=== PATIENT | male | born 1950 | race Caucasian/White ===

== ENCOUNTER 2016-12-02 11:48 | Inpatient (IN) | payer MEDICARE ==
[2016-12-02] MEDS: DILTIAZEM 125 MG in SODIUM CHLORIDE 0.9% 100 ML IV STA (12:44)
[2016-12-02 12:45] LABS: INR 1.3 (<1.1); Partial Thromboplastin Time 26.4 sec (22.0-30.0); Prothrombin Time 12.6 sec (9.0-12.0)
[2016-12-02 12:49] LABS: ALT 18 U/L (21-72); AST 13 U/L (17-59); Alkaline Phosphatase 79 U/L (38-126); Anion Gap 12 mmol/L; Blood Urea Nitrogen 18 mg/dL (9-20); Calcium 6.7 mg/dL (8.4-10.2); Carbon Dioxide 23 mmol/L (22-30); Chloride 104 mmol/L (98-107); Glucose 120 mg/dL (74-99); Non-African American GFR(MDRD) 59 (>60 ml/min/1.73 sqM); Potassium 4.1 mmol/L (3.5-5.1); Sodium 139 mmol/L (137-145); Total Bilirubin 0.5 mg/dL (0.2-1.3); Total Protein 6.7 g/dL (6.3-8.2)
--- NOTE | 2016-12-02 12:54 | XR ---
EXAMINATION TYPE: XR chest 1V portable DATE OF EXAM: 12/02/2016 12:47 PM Comparison: 10/23/2016 Clinical History: 66-year-old male with dysrhythmia Findings: Heart is mildly enlarged. Rightward patient rotation alters the normal cardiac and mediastinal contou rs. Diffuse interstitial prominence appears increased from prior. Blunted right costophrenic angle. Impression: Correlate for mild CHF with pulmonary vascular congestion. Blunted right costophrenic angle suggests small effusion.
[2016-12-02 12:58] LABS: Magnesium 0.7 mg/dL (1.6-2.3)
[2016-12-02 13:01] LABS: Basophils % (A) 0 %; CH 24.4; CHCM 30.1; Eosinophils # (A) 0.1 k/uL (0-0.7); Eosinophils % (A) 1 %; HCT 31.5 % (39.0-53.0); HDW 2.82; HGB 9.5 gm/dL (13.0-17.5); Hypochromasia Marked; Luc # (Auto) 0.23; Luc % (Auto) 2; Lymphocytes # (A) 1.1 k/uL (1.0-4.8); Lymphocytes % (A) 8 %; MCH 24.4 pg (25.0-35.0); MCHC 30.1 g/dL (31.0-37.0); Mean Platelet Volume 7.2; Monocytes # (A) 0.6 k/uL (0-1.0); Monocytes % (A) 4 %; Neutrophils # (A) 12.4 k/uL (1.3-7.7); Neutrophils % (A) 85 %; RBC 3.89 m/uL (4.30-5.90); RDW 15.8 % (11.5-15.5); WBC 14.5 k/uL (3.8-10.6); WBC (Perox) 14.78
[2016-12-02 13:05] LABS: MCV 80.9 fL (80.0-100.0)
[2016-12-02 13:12] LABS: Troponin I 0.017 ng/mL (0.000-0.034)
[2016-12-02] MEDS: MAGNESIUM SULFATE-D5W PMX 1 GM in DEXTROSE/WATER 1 100ML.BAG IVPB SCH ×2 (13:28→15:00)
[2016-12-02] MEDS ORDERED: MORPHINE SULFATE 4 MG/ML SYRINGE IV STA (15:20)
[2016-12-02] MEDS ORDERED: CALCIUM GLUCONATE 1,000 MG in SODIUM CHLORIDE 0.9% 100 ML IVPB ONE (15:30)
[2016-12-02] MEDS ORDERED: NITROGLYCERIN SL TABS 0.4 MG TAB SUBLINGUAL PRN (15:51)
[2016-12-02] MEDS ORDERED: MECLIZINE 25 MG TAB PO PRN (15:54)
[2016-12-02] MEDS ORDERED: ALPRAZolam 0.25 MG TAB PO PRN (15:54)
[2016-12-02] MEDS ORDERED: IPRATROPIUM 0.5 MG/2.5 ML NEBU INHALATION PRN (15:54)
--- NOTE | 2016-12-02 15:56 | ED ---
General Adult HPI - General Chief complaint: Recheck/Abnormal Lab/Rx Stated complaint: abnormal labs Time Seen by Provider: 12/02/16 12:03 Source: patient, EMS Mode of arrival: EMS Limitations: physical limitation - History of Present Illness Initial comments: This patient is 66-year-old man who presents to be evaluated for diarrhea and resulting electrolyte abnormalities. He has had previous episodes like this when he develops diarrhea. The patient spoke with his physician who directed him here. The patient is denying chest pain or dyspnea. He has not noted any blood in the bowel movements. He was recently checked for clostridium and was negative. He is not having abdominal pains. -: days(s) Consistency: constant Improves with: none Worsens with: none Associated Symptoms: malaise, weakness Treatments Prior to Arrival: none - Related Data Home Medications Medication Instructions Recorded Confirmed Calcitriol [Rocaltrol] 0.25 mcg PO SUTH 06/06/16 12/02/16 Diltiazem HCl [Diltiazem 24Hr ER] 180 mg PO DAILY 06/06/16 12/02/16 Citalopram Hydrobromide [CeleXA] 20 mg PO DAILY 08/13/16 12/02/16 Lansoprazole 30 mg PO DAILY 08/13/16 12/02/16 Ergocalciferol [Vitamin D2 50,000 unit PO [id number] 08/29/16 12/02/16 (DRISDOL)] Furosemide [Lasix] 40 mg PO DAILY 08/29/16 12/02/16 INSULIN LISPRO (humaLOG) [humaLOG See Protocol SQ ACHS 08/29/16 12/02/16 (formulary)] Albuterol Nebulized [Ventolin 2.5 mg INHALATION RT-QID 10/23/16 12/02/16 Nebulized] Calcium Carbonate/Vitamin D3 1 tab PO BID 10/23/16 12/02/16 [Calcium 600-Vit D3 200 Tablet] Ipratropium [place] [Atrovent Hfa] 2 puff INHALATION RT-QID PRN 10/23/16 Meclizine [Antivert] 25 mg PO Q8H PRN 10/23/16 12/02/16 Multivitamins, Thera [Multivitamin] 1 tab PO DAILY 10/23/16 12/02/16 predniSONE 5 mg PO DAILY 10/23/16 12/02/16 Previous Rx's Medication Instructions Recorded ALPRAZolam [Xanax] 0.25 mg PO QID PRN #90 tab 10/27/16 Doxycycline [Vibramycin] 100 mg PO BID cap 10/27/16 Hydrocodone/Acetaminophen [Magazine 2 tab PO Q12H #120 tab 10/27/16 10-325] Linagliptin [Tradjenta] 5 mg PO DAILY tablet 10/27/16 Allergies Allergy/AdvReac Type Severity Reaction Status Date / Time No Known Allergies Allergy Verified 12/02/16 12:21 Review of Systems ROS Statement: Those systems with pertinent positive or pertinent negative responses have been documented in the HPI. ROS Other: All systems not noted in ROS Statement are negative. Constitutional: Reports: weakness. Denies: fever, chills Respiratory: Denies: cough, dyspnea, wheezes Cardiovascular: Denies: chest pain, edema, syncope Gastrointestinal: Reports: diarrhea. Denies: abdominal pain, nausea, vomiting, constipation, melena, hematochezia Genitourinary: Denies: dysuria, hematuria Musculoskeletal: Denies: back pain Skin: Reports: other (Chronic hidradenitis) Neurological: Reports: weakness. Denies: headache, numbness, paresthesias Past Medical History Past Medical History: Atrial Fibrillation, Asthma, Cancer, Diabetes Mellitus, Eye Disorder, GERD/Reflux, GI Bleed, Hearing Disorder / Deafness, Pneumonia, Renal Disease, Respiratory Disorder, Skin Disorder Additional Past Medical History / Comment(s): renal failure, lung CA, cardiac arrythmia, ulcer,pt has hydradenitis on b/l legs, thighs weep and bandages them daily, left leg tib/\fib fx 08/12/16. was in [facility] for rehab, went home. wants pt back in rehab.. History of Any Multi-Drug Resistant Organisms: None Reported Past Surgical History: Appendectomy, Cholecystectomy, Orthopedic Surgery Additional Past Surgical History / Comment(s): lower and middle lobe of right lung removed due to cancer, lap band, UVP3, cyst removal off hip, surgery for perforated duodenal ulcer Past Anesthesia/Blood Transfusion Reactions: No Reported Reaction Past Psychological History: Depression Smoking Status: Former smoker Past Alcohol Use History: None Reported, Occasional Additional Past Alcohol Use History / Comment(s): Patient was a smoker of 2-1/2 3 packs per day for 47 years, QUIT 4-5 YEARS AGO. He denies any medical marijuana, marijuana, street drug or alcohol use. Patient CURRENTLY AT [facility]. He has been on disability since 1990. THRU HIS WORK sustained lead poisoning there in 1971. 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 Past Drug Use History: None Reported - Past Family History Father Family Medical History: Cancer, Diabetes Mellitus, Liver Disease Mother Family Medical History: Cancer, Thyroid Disorder General Exam Limitations: physical limitation General appearance: alert, in no apparent distress, obese Head exam: Present: atraumatic, normocephalic Eye exam: Present: normal appearance. Absent: scleral icterus, conjunctival injection Neck exam: Present: normal inspection, full ROM Respiratory exam: Present: normal lung sounds bilaterally. Absent: respiratory distress, wheezes, rales, rhonchi, stridor Cardiovascular Exam: Present: tachycardia, irregular rhythm, normal heart sounds. Absent: systolic murmur, diastolic murmur, rubs, gallop GI/Abdominal exam: Present: soft. Absent: distended, tenderness, guarding, rebound, mass Extremities exam: Present: normal inspection, normal capillary refill. Absent: pedal edema, calf tenderness Back exam: Present: normal inspection. Absent: CVA tenderness (R), CVA tenderness (L) Neurological exam: Present: alert. Absent: motor sensory deficit Skin exam: Present: warm, dry, normal color, other (Patient does have some chronically draining tracts related to his hydradenitis.) Course Vital Signs 12/02/16 12/02/16 12/02/16 11:49 12:30 12:46 Temperature 97.9 F Pulse Rate 126 H 120 H Pulse Rate [ 131 H Top Taper Machine ] Respiratory 18 16 Rate Blood Pressure 124/75 114/68 O2 Sat by Pulse 97 99 Oximetry 12/02/16 12/02/16 12/02/16 12:50 13:47 14:09 Temperature Pulse Rate 105 H 104 H Pulse Rate [ 125 H Top Taper Machine ] Respiratory 16 Rate Blood Pressure 122/76 137/82 O2 Sat by Pulse 98 98 Oximetry 12/02/16 12/02/16 12/02/16 15:01 15:36 16:55 Temperature 97.1 F L Pulse Rate 106 H 95 100 Pulse Rate [ Top Taper Machine ] Respiratory 16 18 98 H Rate Blood Pressure 128/90 130/81 122/77 O2 Sat by Pulse 99 99 98 Oximetry EKG Findings - EKG Results: EKG: interpreted by ERMD, normal axis, normal QRS, normal ST/T EKG shows: atrial fibrillation (Rate 120 bpm) Medical Decision Making - Medical Decision Making Patient is 66-year-old man who is presenting with atrial fibrillation with a rapid ventricular rate, as well as multiple electrolyte abnormalities. Patient started on Cardizem for rate control and also having elective light supplementation. Case discussed with Dr. Flores who requests patient receive air bed. - Lab Data Result diagrams: 12/02/16 12:05 12/02/16 12:05 Lab Results 12/02/16 12/02/16 12/02/16 Range/Units 12:05 12:05 12:05 WBC 14.5 H (3.8-10.6) k/uL RBC 3.89 L (4.30-5.90) m/uL Hgb 9.5 L (13.0-17.5) gm/dL Hct 31.5 L (39.0-53.0) % MCV 80.9 D (80.0-100.0) fL MCH 24.4 L (25.0-35.0) pg MCHC 30.1 L (31.0-37.0) g/dL RDW 15.8 H (11.5-15.5) % Plt Count 457 H (150-450) k/uL Neutrophils % 85 % Lymphocytes % 8 % Monocytes % 4 % Eosinophils % 1 % Basophils % 0 % Neutrophils # 12.4 H (1.3-7.7) k/uL Lymphocytes # 1.1 (1.0-4.8) k/uL Monocytes # 0.6 (0-1.0) k/uL Eosinophils # 0.1 (0-0.7) k/uL Basophils # 0.0 (0-0.2) k/uL Hypochromasia Marked PT (9.0-12.0) sec INR (<1.1) APTT (22.0-30.0) sec Sodium 139 (137-145) mmol/L Potassium 4.1 (3.5-5.1) mmol/L Chloride 104 (98-107) mmol/L Carbon Dioxide 23 (22-30) mmol/L Anion Gap 12 mmol/L BUN 18 (9-20) mg/dL Creatinine 1.23 (0.66-1.25) mg/dL Est GFR (MDRD) Af Amer >60 (>60 ml/min/1.73 sqM) Est GFR (MDRD) Non-Af 59 (>60 ml/min/1.73 sqM) Glucose 120 H (74-99) mg/dL Calcium 6.7 L (8.4-10.2) mg/dL Magnesium 0.7 L* (1.6-2.3) mg/dL Total Bilirubin 0.5 (0.2-1.3) mg/dL AST 13 L (17-59) U/L ALT 18 L (21-72) U/L Alkaline Phosphatase 79 (38-126) U/L Total Creatine Kinase 47 L (55-170) U/L CK-MB (CK-2) 1.0 (0.0-2.4) ng/mL CK-MB (CK-2) Rel Index 2.1 Troponin I 0.017 (0.000-0.034) ng/mL Total Protein 6.7 (6.3-8.2) g/dL Albumin 2.5 L (3.5-5.0) g/dL 12/02/16 Range/Units 12:05 WBC (3.8-10.6) k/uL RBC (4.30-5.90) m/uL Hgb (13.0-17.5) gm/dL Hct (39.0-53.0) % MCV (80.0-100.0) fL MCH (25.0-35.0) pg MCHC (31.0-37.0) g/dL RDW (11.5-15.5) % Plt Count (150-450) k/uL Neutrophils % % Lymphocytes % % Monocytes % % Eosinophils % % Basophils % % Neutrophils # (1.3-7.7) k/uL Lymphocytes # (1.0-4.8) k/uL Monocytes # (0-1.0) k/uL Eosinophils # (0-0.7) k/uL Basophils # (0-0.2) k/uL Hypochromasia PT 12.6 H (9.0-12.0) sec INR 1.3 (<1.1) APTT 26.4 (22.0-30.0) sec Sodium (137-145) mmol/L Potassium (3.5-5.1) mmol/L Chloride (98-107) mmol/L Carbon Dioxide (22-30) mmol/L Anion Gap mmol/L BUN (9-20) mg/dL Creatinine (0.66-1.25) mg/dL Est GFR (MDRD) Af Amer (>60 ml/min/1.73 sqM) Est GFR (MDRD) Non-Af (>60 ml/min/1.73 sqM) Glucose (74-99) mg/dL Calcium (8.4-10.2) mg/dL Magnesium (1.6-2.3) mg/dL Total Bilirubin (0.2-1.3) mg/dL AST (17-59) U/L ALT (21-72) U/L Alkaline Phosphatase (38-126) U/L Total Creatine Kinase (55-170) U/L CK-MB (CK-2) (0.0-2.4) ng/mL CK-MB (CK-2) Rel Index Troponin I (0.000-0.034) ng/mL Total Protein (6.3-8.2) g/dL Albumin (3.5-5.0) g/dL Disposition Clinical Impression: Atrial fibrillation with rapid ventricular response, Hypocalcemia, Hypomagnesemia, Hidradenitis suppurativa Disposition: ADMITTED IP TO THIS HOSP Condition: Fair
[2016-12-02 18:28] LABS: Glucose,Whole Blood 94 mg/dL (75-99)
[2016-12-02] MEDS: SODIUM CHLORIDE 0.9% 1,000 ML IV SCH (18:29)
[2016-12-02] MEDS: HYDROcodone/APAP 10-325MG 1 EACH TAB PO SCH (18:46)
[2016-12-02 19:07] LABS: Creatine Kinase 41 U/L (55-170)
[2016-12-02 19:21] LABS: Troponin I <0.012 ng/mL (0.000-0.034)
[2016-12-02] MEDS: ALBUTEROL NEBULIZED 2.5 MG/3 ML INHALATION SCH ×2 (20:32)
[2016-12-02 20:42] LABS: Glucose,Whole Blood 105 mg/dL (75-99)
[2016-12-02] MEDS: CALCIUM CARB-VIT D 500MG-200UN 1 EACH TAB PO SCH (20:44)
[2016-12-02] MEDS: MAGNESIUM OXIDE 400 MG TAB PO SCH (20:44)
[2016-12-02] MEDS: DOXYCYCLINE 50 MG CAP PO SCH (20:44)
[2016-12-03 00:15] LABS: Creatine Kinase 38 U/L (55-170)
[2016-12-03 00:27] LABS: Troponin I <0.012 ng/mL (0.000-0.034)
[2016-12-03] MEDS: DILTIAZEM 125 MG in SODIUM CHLORIDE 0.9% 100 ML IV STA (02:00)
[2016-12-03 06:01] LABS: Glucose,Whole Blood 98 mg/dL (75-99)
[2016-12-03 06:16] LABS: Anion Gap 9 mmol/L; Blood Urea Nitrogen 18 mg/dL (9-20); Calcium 7.2 mg/dL (8.4-10.2); Carbon Dioxide 28 mmol/L (22-30); Chloride 104 mmol/L (98-107); Cholesterol 77 mg/dL (<200); Glucose 92 mg/dL (74-99); HDL Cholesterol 25 mg/dL (40-60); Magnesium 1.1 mg/dL (1.6-2.3); Non-African American GFR(MDRD) 51 (>60 ml/min/1.73 sqM); Potassium 3.9 mmol/L (3.5-5.1); Sodium 141 mmol/L (137-145); Triglycerides 81 mg/dL (<150)
[2016-12-03 06:22] LABS: Basophils % (A) 0 %; CH 24.1; CHCM 28.8; Eosinophils # (A) 0.5 k/uL (0-0.7); Eosinophils % (A) 4 %; HCT 30.9 % (39.0-53.0); HDW 2.85; Hypochromasia Marked; Luc # (Auto) 0.21; Luc % (Auto) 2; Lymphocytes # (A) 1.4 k/uL (1.0-4.8); Lymphocytes % (A) 14 %; MCH 24.2 pg (25.0-35.0); MCV 83.5 fL (80.0-100.0); Mean Platelet Volume 6.4; Monocytes # (A) 0.5 k/uL (0-1.0); Monocytes % (A) 5 %; Neutrophils # (A) 7.9 k/uL (1.3-7.7); Neutrophils % (A) 75 %; RDW 15.7 % (11.5-15.5); WBC 10.5 k/uL (3.8-10.6); WBC (Perox) 11.78
[2016-12-03] MEDS: HYDROcodone/APAP 10-325MG 1 EACH TAB PO SCH ×2 (06:26→15:50)
[2016-12-03] MEDS: PANTOPRAZOLE 40 MG TABLET PO SCH (06:29)
[2016-12-03] MEDS: ALBUTEROL NEBULIZED 2.5 MG/3 ML INHALATION SCH ×4 (07:50→20:23)
[2016-12-03] MEDS: CALCIUM CARB-VIT D 500MG-200UN 1 EACH TAB PO SCH ×2 (08:54→21:29)
[2016-12-03] MEDS: ASPIRIN 325 MG TAB PO SCH (08:54)
[2016-12-03] MEDS: DOXYCYCLINE 50 MG CAP PO SCH ×2 (08:54→21:29)
[2016-12-03] MEDS: FUROSEMIDE 40 MG TAB PO SCH (08:54)
[2016-12-03] MEDS: CITALOPRAM HYDROBROMIDE 20 MG TAB PO SCH (08:54)
[2016-12-03] MEDS: predniSONE 5 MG TAB PO SCH (08:54)
[2016-12-03] MEDS: MAGNESIUM OXIDE 400 MG TAB PO SCH ×2 (08:54→21:29)
[2016-12-03] MEDS: MULTIVITAMINS, THERA 1 EACH TAB PO SCH (08:54)
[2016-12-03] MEDS: LINAGLIPTIN 5 MG TABLET PO SCH (08:55)
[2016-12-03] MEDS ORDERED: DILTIAZEM CD 180 MG CAP.ER.24H PO SCH (09:00)
--- NOTE | 2016-12-03 10:44 | P.HPIM ---
History of Present Illness H&P Date: 12/03/16 Chief Complaint: Loose stool, electrolyte abnormality Javid is a 66-year-old male well-known to my practice presented for evaluation for diarrhea resulting electrolyte abnormalities. He said previous episodes like this way or he develops hypocalcemia hypomagnesemia and hypo-bulimia and specifically becomes dehydrated. Currently patient is denying any chest pain or dyspnea no nausea. He has not noted any blood in the stool or bowel movements. There is recently checked for Clostridium difficile which was negative. He was not experiencing any abdominal pain this time. He has a long- standing history of severe hydradenitis on his upper thighs and buttocks. The patient also has a long standing history of lung cancer for which she was treated and apparently is seems to be in remission Review of Systems Cardiovascular: Reports as per HPI, Reports rapid heart beat Respiratory: Reports as per HPI Gastrointestinal: Reports as per HPI, Reports diarrhea Genitourinary: Reports as per HPI Musculoskeletal: Reports as per HPI Integumentary: Reports as per HPI Neurological: Reports as per HPI Psychiatric: Reports as per HPI Past Medical History Past Medical History: Atrial Fibrillation, Asthma, Cancer, Diabetes Mellitus, Eye Disorder, GERD/Reflux, GI Bleed, Hearing Disorder / Deafness, Pneumonia, Renal Disease, Respiratory Disorder, Skin Disorder Additional Past Medical History / Comment(s): renal failure, lung CA, cardiac arrythmia, ulcer,pt has hydradenitis on b/l legs, thighs weep and bandages them daily, left leg tib/\fib fx 08/12/16. was in [facility] for rehab, went home. wants pt back in rehab.. History of Any Multi-Drug Resistant Organisms: None Reported Past Surgical History: Appendectomy, Cholecystectomy, Orthopedic Surgery Additional Past Surgical History / Comment(s): lower and middle lobe of right lung removed due to cancer, lap band, UVP3, cyst removal off hip, surgery for perforated duodenal ulcer Past Anesthesia/Blood Transfusion Reactions: No Reported Reaction Past Psychological History: Depression Smoking Status: Former smoker Past Alcohol Use History: None Reported, Occasional Additional Past Alcohol Use History / Comment(s): Patient was a smoker of 2-1/2 3 packs per day for 47 years, QUIT 4-5 YEARS AGO. He denies any medical marijuana, marijuana, street drug or alcohol use. Patient CURRENTLY AT [facility]. He has been on disability since 1990. THRU HIS WORK sustained lead poisoning there in 1971. 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 Past Drug Use History: None Reported - Past Family History Father Family Medical History: Cancer, Diabetes Mellitus, Liver Disease Mother Family Medical History: Cancer, Thyroid Disorder Medications and Allergies Home Medications Medication Instructions Recorded Confirmed Type Calcitriol [Rocaltrol] 0.25 mcg PO SUTH 06/06/16 12/02/16 History Diltiazem HCl [Diltiazem 24Hr ER] 180 mg PO DAILY 06/06/16 12/02/16 History Citalopram Hydrobromide [CeleXA] 20 mg PO DAILY 08/13/16 12/02/16 History Lansoprazole 30 mg PO DAILY 08/13/16 12/02/16 History Ergocalciferol [Vitamin D2 50,000 unit PO [id number] 08/29/16 12/02/16 History (DRISDOL)] Furosemide [Lasix] 40 mg PO DAILY 08/29/16 12/02/16 History INSULIN LISPRO (humaLOG) [humaLOG See Protocol SQ ACHS 08/29/16 12/02/16 History (formulary)] Albuterol Nebulized [Ventolin 2.5 mg INHALATION RT-QID 10/23/16 12/02/16 History Nebulized] Calcium Carbonate/Vitamin D3 1 tab PO BID 10/23/16 12/02/16 History [Calcium 600-Vit D3 200 Tablet] Ipratropium [place] [Atrovent Hfa] 2 puff INHALATION RT-QID PRN 10/23/16 History Meclizine [Antivert] 25 mg PO Q8H PRN 10/23/16 12/02/16 History Multivitamins, Thera [Multivitamin] 1 tab PO DAILY 10/23/16 12/02/16 History predniSONE 5 mg PO DAILY 10/23/16 12/02/16 History Allergies Allergy/AdvReac Type Severity Reaction Status Date / Time No Known Allergies Allergy Verified 12/02/16 12:21 Physical Exam Osteopathic Statement: *. No significant issues noted on an osteopathic structural exam other than those noted in the History and Physical/Consult. Vitals: Vital Signs Temp Pulse Pulse Resp BP BP Pulse Ox 12/03/16 08:05 98 12/03/16 08:00 98.8 F 101 H 18 118/63 92 L 12/03/16 07:53 100 94 L 12/03/16 04:00 97 F L 102 H 18 112/62 99 12/03/16 00:00 96.2 F L 109 H 18 97/52 94 L 12/02/16 20:42 88 12/02/16 20:33 88 12/02/16 20:00 99 F 96 18 90/53 97 12/02/16 18:32 96 16 12/02/16 18:30 96.9 F L 96 16 111/56 98 12/02/16 16:55 97.1 F L 100 98 H 122/77 98 Intake and Output 12/02/16 12/03/16 12/03/16 22:59 06:59 14:59 Intake Total 16.75 299.167 402 Output Total 500 400 Balance -483.25 -100.833 402 Intake: IV 200 Diltiazem 125 mg In 100 Sodium Chloride 0.9% 100 ml @ 5 MG/HR 5 mls/hr IV .Q24H STA Rx#:[id number] Sodium Chloride 0.9% 1, 100 000 ml @ 20 mls/hr IV . Q24H [facility] Rx#:[id number] Intake, IV Titration 16.75 99.167 Amount Diltiazem 125 mg In 16.75 99.167 Sodium Chloride 0.9% 100 ml @ 5 MG/HR 5 mls/hr IV .Q24H STA Rx#:[id number] Oral 402 Output: Urine 500 400 Other: Voiding Method Urinal Urinal Urinal # Voids 1 Weight 140.2 kg General: [Patient awake, alert and oriented times 3. Patient in no acute distress.] HEENT: [PERRL. EOMI. No pharyngeal erythema or exudate.] Neck: [No adenopathy.] Cardiac: [Heart regular in rate and rhythm. No S3. No S4. No clicks, rubs. No murmur.] Lungs: [Clear to auscultation bilaterally.] Abdomen: [No mass. No organomegaly. Bowel sounds presnt and normoactive in all 4 quadrants.] Extremes: [No edema no cyanosis no claudication normal pulses] patient has hidradenitis to bilateral lower extremes thighs and buttocks with persistently openly week being fistulous tracts : [] Musculoskeletal: [No joint erythema, edema or tenderness.] Skin: [No rash.] Neurologic: [No lateralizing deficits. CN II - XII grossly intact.] Lymphatic: [No adenopathy.] Results CBC & Chem 7: 12/03/16 05:38 12/03/16 05:38 Labs: Abnormal Lab Results - Last 24 Hours (Table) 12/02/16 12/02/16 12/02/16 Range/Units 17:58 20:40 23:32 RBC (4.30-5.90) m/uL Hgb (13.0-17.5) gm/dL Hct (39.0-53.0) % MCH (25.0-35.0) pg MCHC (31.0-37.0) g/dL RDW (11.5-15.5) % Neutrophils # (1.3-7.7) k/uL Creatinine (0.66-1.25) mg/dL POC Glucose (mg/dL) 105 H (75-99) mg/dL Calcium (8.4-10.2) mg/dL Magnesium (1.6-2.3) mg/dL Total Creatine Kinase 41 L 38 L (55-170) U/L HDL Cholesterol (40-60) mg/dL 12/03/16 12/03/16 Range/Units 05:38 05:38 RBC 3.70 L (4.30-5.90) m/uL Hgb 9.0 L (13.0-17.5) gm/dL Hct 30.9 L (39.0-53.0) % MCH 24.2 L (25.0-35.0) pg MCHC 29.0 L (31.0-37.0) g/dL RDW 15.7 H (11.5-15.5) % Neutrophils # 7.9 H (1.3-7.7) k/uL Creatinine 1.39 H (0.66-1.25) mg/dL POC Glucose (mg/dL) (75-99) mg/dL Calcium 7.2 L (8.4-10.2) mg/dL Magnesium 1.1 L (1.6-2.3) mg/dL Total Creatine Kinase (55-170) U/L HDL Cholesterol 25 L (40-60) mg/dL Assessment and Plan (1) Atrial fibrillation with rapid ventricular response Narrative/Plan: Currently anxious him channel claudio aggressive rehydration replace electrolytes Status: Acute (2) Hypocalcemia Narrative/Plan: Patient currently on calcium replacement protocol Status: Acute (3) Hypomagnesemia Narrative/Plan: Patient on magnesium replacement protocol Status: Acute (4) Hidradenitis suppurativa Narrative/Plan: This is been cultured and dull with multiple time we do not actually culture any bacteria out in the the purulent exudate Dressing changes daily or as needed Status: Chronic (5) Chronic a-fib Narrative/Plan: Patient has not been on anticoagulants basically because his buttocks bleeds excessively from the antiplatelet therapy Status: Acute Plan: Aggressive rehydration aggressively electrolyte replacement in control loose stool B labs reevaluate in the morning
[2016-12-03] MEDS ORDERED: Magnesium Replacement Protocol 1 EACH MISC MISCELLANE PRN (10:56)
[2016-12-03 11:10] LABS: Glucose,Whole Blood 157 mg/dL (75-99)
--- NOTE | 2016-12-03 11:16 | P.CRDCN ---
History of Present Illness Consult date: 12/03/16 Reason for Consult (text): AF w/RVR Chief complaint: Diarrhea History of present illness: This is a 66-year-old gentleman who has previously been seen in the office by Dr. Agarwal. Has a known history of atrial fibrillation, diabetes mellitus, GI bleed, lung cancer, renal insufficiency, gastroesophageal reflux and asthma. Presented to the emergency department after speaking with his primary care physician regarding diarrhea over the last week has been becoming more frequent over the last couple of days. Has had this issue in the past and has resulted in electrolyte imbalances. Upon presentation EKG showed patient to be in atrial fibrillation with rapid ventricular response. Laboratory values showed a magnesium of 0.7 and calcium 6.7. His BUN is 18 creatinine 1.39. He received magnesium replacement, 2 g and repeat magnesium is 1.1 this morning. As x-ray done on admission did show some mild CHF with possible pulmonary vascular congestion. Last echocardiogram done in August 2016 showed an ejection fraction of 45-50%. Upon examination this morning, patient is resting comfortably in bed. He denies complaints of chest discomfort, palpitations, shortness of breath, orthopnea, PND, dizziness, lightheadedness, syncope or edema. Past Medical History Past Medical History: Atrial Fibrillation, Asthma, Cancer, Diabetes Mellitus, Eye Disorder, GERD/Reflux, GI Bleed, Hearing Disorder / Deafness, Pneumonia, Renal Disease, Respiratory Disorder, Skin Disorder Additional Past Medical History / Comment(s): renal failure, lung CA, cardiac arrythmia, ulcer,pt has hydradenitis on b/l legs, thighs weep and bandages them daily, left leg tib/\fib fx 08/12/16. was in [facility] for rehab, went home. wants pt back in rehab.. History of Any Multi-Drug Resistant Organisms: None Reported Past Surgical History: Appendectomy, Cholecystectomy, Orthopedic Surgery Additional Past Surgical History / Comment(s): lower and middle lobe of right lung removed due to cancer, lap band, UVP3, cyst removal off hip, surgery for perforated duodenal ulcer Past Anesthesia/Blood Transfusion Reactions: No Reported Reaction Past Psychological History: Depression Smoking Status: Former smoker Past Alcohol Use History: None Reported, Occasional Additional Past Alcohol Use History / Comment(s): Patient was a smoker of 2-1/2 3 packs per day for 47 years, QUIT 4-5 YEARS AGO. He denies any medical marijuana, marijuana, street drug or alcohol use. Patient CURRENTLY AT [facility]. He has been on disability since 1990. THRU HIS WORK sustained lead poisoning there in 1971. 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 Past Drug Use History: None Reported - Past Family History Father Family Medical History: Cancer, Diabetes Mellitus, Liver Disease Mother Family Medical History: Cancer, Thyroid Disorder Medications and Allergies Home Medications Medication Instructions Recorded Confirmed Type Calcitriol [Rocaltrol] 0.25 mcg PO SUTH 06/06/16 12/02/16 History Diltiazem HCl [Diltiazem 24Hr ER] 180 mg PO DAILY 06/06/16 12/02/16 History Citalopram Hydrobromide [CeleXA] 20 mg PO DAILY 08/13/16 12/02/16 History Lansoprazole 30 mg PO DAILY 08/13/16 12/02/16 History Ergocalciferol [Vitamin D2 50,000 unit PO [id number] 08/29/16 12/02/16 History (DRISDOL)] Furosemide [Lasix] 40 mg PO DAILY 08/29/16 12/02/16 History INSULIN LISPRO (humaLOG) [humaLOG See Protocol SQ ACHS 08/29/16 12/02/16 History (formulary)] Albuterol Nebulized [Ventolin 2.5 mg INHALATION RT-QID 10/23/16 12/02/16 History Nebulized] Calcium Carbonate/Vitamin D3 1 tab PO BID 10/23/16 12/02/16 History [Calcium 600-Vit D3 200 Tablet] Ipratropium [place] [Atrovent Hfa] 2 puff INHALATION RT-QID PRN 10/23/16 History Meclizine [Antivert] 25 mg PO Q8H PRN 10/23/16 12/02/16 History Multivitamins, Thera [Multivitamin] 1 tab PO DAILY 10/23/16 12/02/16 History predniSONE 5 mg PO DAILY 10/23/16 12/02/16 History Allergies Allergy/AdvReac Type Severity Reaction Status Date / Time No Known Allergies Allergy Verified 12/02/16 12:21 Physical Exam Vitals: Vital Signs Temp Pulse Pulse Resp BP BP Pulse Ox 12/03/16 08:05 98 01/14/17 08:00 98.8 F 101 H 18 118/63 92 L 12/03/16 07:53 100 94 L 12/03/16 04:00 97 F L 102 H 18 112/62 99 12/03/16 00:00 96.2 F L 109 H 18 97/52 94 L 12/02/16 20:42 88 12/02/16 20:33 88 12/02/16 20:00 99 F 96 18 90/53 97 12/02/16 18:32 96 16 12/02/16 18:30 96.9 F L 96 16 111/56 98 12/02/16 16:55 97.1 F L 100 98 H 122/77 98 Intake and Output 12/02/16 12/03/16 12/03/16 22:59 06:59 14:59 Intake Total 16.75 299.167 402 Output Total 500 400 Balance -483.25 -100.833 402 Intake: IV 200 Diltiazem 125 mg In 100 Sodium Chloride 0.9% 100 ml @ 5 MG/HR 5 mls/hr IV .Q24H [facility] Rx#:[id number] Sodium Chloride 0.9% 1, 100 000 ml @ 20 mls/hr IV . Q24H [facility] Rx#:[id number] Intake, IV Titration 16.75 99.167 Amount Diltiazem 125 mg In 16.75 99.167 Sodium Chloride 0.9% 100 ml @ 5 MG/HR 5 mls/hr IV .Q24H STA Rx#:[id number] Oral 402 Output: Urine 500 400 Other: Voiding Method Urinal Urinal Urinal # Voids 1 Weight 140.2 kg PHYSICAL EXAMINATION: HEENT: Head is atraumatic, normocephalic. Pupils equal, round. Neck is supple. There is no elevated jugular venous pressure. HEART EXAMINATION: Heart sounds irregular regular, S1 and S2 normal. No murmur or gallop heard. CHEST EXAMINATION: Lungs reveal diminished air entry bilaterally. No chest wall tenderness is noted on palpation or with deep breathing. ABDOMEN: Soft, obese, nontender but does complain of some mild cramping upon palpation. Bowel sounds are heard. No organomegaly noted. EXTREMITIES: 1+ peripheral pulses with no evidence of peripheral edema and no calf tenderness noted. NEUROLOGIC patient is awake, alert and oriented x3. . Results 12/03/16 05:38 12/03/16 05:38 Cardiac Enzymes 12/02/16 12/02/16 Range/Units 17:58 23:32 CK-MB (CK-2) 1.0 1.0 (0.0-2.4) ng/mL Troponin I <0.012 <0.012 (0.000-0.034) ng/mL Lipids 12/03/16 Range/Units 05:38 Triglycerides 81 (<150) mg/dL Cholesterol 77 (<200) mg/dL HDL Cholesterol 25 L (40-60) mg/dL CBC 12/03/16 Range/Units 05:38 WBC 10.5 (3.8-10.6) k/uL RBC 3.70 L (4.30-5.90) m/uL Hgb 9.0 L (13.0-17.5) gm/dL Hct 30.9 L (39.0-53.0) % Plt Count 443 (150-450) k/uL Comprehensive Metabolic Panel 12/03/16 Range/Units 05:38 Sodium 141 (137-145) mmol/L Potassium 3.9 (3.5-5.1) mmol/L Chloride 104 (98-107) mmol/L Carbon Dioxide 28 (22-30) mmol/L BUN 18 (9-20) mg/dL Creatinine 1.39 H (0.66-1.25) mg/dL Glucose 92 (74-99) mg/dL Calcium 7.2 L (8.4-10.2) mg/dL Current Medications Generic Name Dose Route Start Last Admin Trade Name Freq PRN Reason Stop Dose Admin Acetaminophen/Hydrocodone Bitart 2 each 12/02/16 16:00 12/03/16 06:26 [place] 10 PO 2 each Q12H [facility]WE[facility] Administration Albuterol Sulfate 2.5 mg 12/02/16 16:00 12/03/16 07:50 Ventolin Nebulized INHALATION 2.5 mg RT-QID [facility]WELL Administration Alprazolam 0.25 mg 12/02/16 15:54 Xanax PO QID PRN Anxiety Aspirin 325 mg 12/03/16 09:00 12/03/16 08:54 Aspirin PO 325 mg DAILY MAXWELL Administration Calcitriol 0.25 mcg 12/04/16 12:00 Rocaltrol PO SUTH [facility]WE[facility] Calcium Carbonate 1 each 12/02/16 21:00 12/03/16 08:54 [place] 500+D PO 1 each BID [facility]WELL Administration Citalopram Hydrobromide 20 mg 12/03/16 09:00 12/03/16 08:54 Celexa PO 20 mg DAILY [facility] Administration Diltiazem HCl 180 mg 12/03/16 09:00 Cardizem Cd PO DAILY [facility] Doxycycline Monohydrate 100 mg 12/02/16 21:00 12/03/16 08:54 Vibramycin PO 100 mg BID MAXWE[facility] Administration Ergocalciferol 50,000 unit 12/16/16 09:00 Vitamin D2 PO [id number] [facility] Furosemide 40 mg 12/03/16 09:00 12/03/16 08:54 Lasix PO 40 mg DAILY [facility] Administration Diltiazem HCl 125 mg/ Sodium 125 mls @ 5 mls/hr 12/02/16 12:03 12/03/16 02:00 Chloride IV 12/03/16 12:02 10 mg/hr .Q24H STA 10 mls/hr Protocol Administration 5 MG/HR Sodium Chloride 1,000 mls @ 20 mls/hr 12/02/16 16:00 12/02/16 18:29 Saline 0.9% IV Not Given .Q24H [facility] Magnesium Sulfate/Dextrose 1 100 mls @ 100 mls/hr 12/03/16 11:00 gm/ IV Solution IVPB 12/03/16 13:59 Q1H [facility] Ipratropium [place] 0.5 mg 12/02/16 15:54 Atrovent Nebulized INHALATION RT-QID PRN Shortness Of Breath Linagliptin 5 mg 12/03/16 09:00 12/03/16 08:55 Tradjenta PO 5 mg DAILY [facility] Administration Magnesium Oxide 400 mg 12/02/16 21:00 12/03/16 08:54 Mag-Ox PO 400 mg BID [facility] Administration Meclizine HCl 25 mg 12/02/16 15:54 Antivert PO Q8H PRN Vertigo Miscellaneous Information 1 each 12/03/16 10:56 Magnesium Per Protocol MISCELLANE DAILY PRN Per Protocol Protocol Multivitamins 1 each 12/03/16 09:00 12/03/16 08:54 Theragran PO 1 each DAILY [facility] Administration Nitroglycerin 0.4 mg 12/02/16 15:51 Nitrostat SUBLINGUAL Q5M PRN Chest Pain Pantoprazole Sodium 40 mg 12/03/16 07:30 12/03/16 06:29 Protonix PO 40 mg [id number] [facility] Administration Prednisone 5 mg 12/03/16 09:00 12/03/16 08:54 PO 5 mg DAILY [facility] Administration Intake and Output 12/02/16 12/03/16 12/03/16 22:59 06:59 14:59 Intake Total 16.75 299.167 402 Output Total 500 400 Balance -483.25 -100.833 402 Intake: IV 200 Diltiazem 125 mg In 100 Sodium Chloride 0.9% 100 ml @ 5 MG/HR 5 mls/hr IV .Q24H [facility] Rx#:[id number] Sodium Chloride 0.9% 1, 100 000 ml @ 20 mls/hr IV . Q24H [facility] Rx#:[id number] Intake, IV Titration 16.75 99.167 Amount Diltiazem 125 mg In 16.75 99.167 Sodium Chloride 0.9% 100 ml @ 5 MG/HR 5 mls/hr IV .Q24H [facility] Rx#:[id number] Oral 402 Output: Urine 500 400 Other: Voiding Method Urinal Urinal Urinal # Voids 1 Weight 140.2 kg 12/03/16 05:38 12/03/16 05:38 EKG Interpretations (text) Atrial fibrillation with rapid ventricular response Assessment and Plan Plan: Assessment and plan #1 atrial fibrillation with rapid ventricular response, chronic, not on chronic anticoagulation secondary to severe hydraneditis #2 hypomagnesemia #3 hypocalcemia #4 congestive heart failure shown on chest x-ray, last ejection fraction 45-50% #5 Diarrhea From cardiac standpoint, we will replace magnesium and recheck in the morning. We will resume patient's by mouth Cardizem and begin to wean IV Cardizem drip. We'll obtain a BNP. Continue to follow the patient provide further recommendations accordingly. RADIOPHARMACIST note has been reviewed, I agree with a documented findings and plan of care. Patient was seen and examined.
[2016-12-03] MEDS: MAGNESIUM SULFATE-D5W PMX 1 GM in DEXTROSE/WATER 1 100ML.BAG IVPB SCH ×3 (12:20→13:31)
[2016-12-03 15:23] VITALS: BMI 35.7
[2016-12-03] MEDS: SODIUM CHLORIDE 0.9% 1,000 ML IV SCH (15:51)
[2016-12-03] MEDS: DILTIAZEM 125 MG in SODIUM CHLORIDE 0.9% 100 ML IV SCH (15:54)
[2016-12-03] MEDS ORDERED: DILTIAZEM 125 MG in SODIUM CHLORIDE 0.9% 100 ML IV SCH (16:00)
[2016-12-03 16:15] LABS: Glucose,Whole Blood 144 mg/dL (75-99)
[2016-12-03 20:44] LABS: Glucose,Whole Blood 130 mg/dL (75-99)
[2016-12-04 06:19] LABS: Glucose,Whole Blood 111 mg/dL (75-99)
[2016-12-04] MEDS: DILTIAZEM 125 MG in SODIUM CHLORIDE 0.9% 100 ML IV SCH (06:51)
[2016-12-04] MEDS: PANTOPRAZOLE 40 MG TABLET PO SCH (06:51)
[2016-12-04] MEDS: ALBUTEROL NEBULIZED 2.5 MG/3 ML INHALATION SCH ×4 (08:25→21:24)
[2016-12-04] MEDS: DILTIAZEM CD 180 MG CAP.ER.24H PO SCH (08:32)
[2016-12-04] MEDS: FUROSEMIDE 40 MG TAB PO SCH (08:32)
[2016-12-04] MEDS: LINAGLIPTIN 5 MG TABLET PO SCH (08:32)
[2016-12-04] MEDS: CALCIUM CARB-VIT D 500MG-200UN 1 EACH TAB PO SCH ×2 (08:32→20:41)
[2016-12-04] MEDS: CITALOPRAM HYDROBROMIDE 20 MG TAB PO SCH (08:32)
[2016-12-04] MEDS: MULTIVITAMINS, THERA 1 EACH TAB PO SCH (08:32)
[2016-12-04] MEDS: MAGNESIUM OXIDE 400 MG TAB PO SCH ×2 (08:32→20:41)
[2016-12-04] MEDS: DOXYCYCLINE 50 MG CAP PO SCH ×2 (08:32→20:41)
[2016-12-04] MEDS: predniSONE 5 MG TAB PO SCH (08:32)
[2016-12-04] MEDS: ASPIRIN 325 MG TAB PO SCH (08:32)
[2016-12-04 10:07] LABS: Anisocytosis Slight; Basophils # (A) 0.1 k/uL (0-0.2); Basophils % (A) 0 %; CH 24.2; CHCM 29.4; Eosinophils # (A) 0.4 k/uL (0-0.7); Eosinophils % (A) 3 %; HDW 2.84; HGB 8.8 gm/dL (13.0-17.5); Hypochromasia Marked; Luc # (Auto) 0.15; Luc % (Auto) 1; Lymphocytes # (A) 1.2 k/uL (1.0-4.8); Lymphocytes % (A) 9 %; MCH 24.2 pg (25.0-35.0); MCHC 29.4 g/dL (31.0-37.0); MCV 82.5 fL (80.0-100.0); Mean Platelet Volume 7.8; Monocytes # (A) 0.7 k/uL (0-1.0); Monocytes % (A) 5 %; Neutrophils # (A) 10.7 k/uL (1.3-7.7); Neutrophils % (A) 82 %; RBC 3.64 m/uL (4.30-5.90); WBC 13.2 k/uL (3.8-10.6); WBC (Perox) 13.68
[2016-12-04 10:21] LABS: Magnesium 1.4 mg/dL (1.6-2.3); Phosphorous 3.8 mg/dL (2.5-4.5); Potassium 3.8 mmol/L (3.5-5.1)
[2016-12-04 11:51] LABS: Glucose,Whole Blood 110 mg/dL (75-99)
--- NOTE | 2016-12-04 11:54 | P.CONS ---
History of Present Illness - Reason for Consult Consult date: 12/03/16 History of lung cancer. AOCKD on Procrit - History of Present Illness The patient is a 66-year-old gentleman with multiple medical problems, well known to our service. He was diagnosed with a squamous cell lung cancer in the spring, and underwent right lower lobectomy in 04/01. He was found to have a T3 tumor, with 3 lymph nodes positive in the hilar region. There is also possibility of the margin being positive. Based on the above, adjuvant chemotherapy was recommended. The patient was started on treatment with cisplatin and Gemzar. However after 2 cycles, he suffered acute kidney injury, likely due to the eagle. Chemotherapy was stopped, and the patient was treated aggressively, with partial recovery of renal function. Therefore it was decided not to proceed with any further chemotherapy. We did discuss radiation, but after prolonged consideration, the patient refused the same. He was then placed on observation with the office visits and serial CT scans with no evidence of recurrence so far. Most recent computed tomography scan was in 07/05. He is currently on a 6 month schedule. The patient had also developed anemia because of his CAD, and has been on Procrit in the office. He is actually done quite well on that , and did not require a dose at the time of his last visit in 08/05 because of hemoglobin being greater than 11. However the patient has not been able to follow-up in the office since then because of multiple hospital admissions, related to cardiac issues, as well as fall and left hip fracture. The patient does have a history of diarrhea off and on. He states that he developed significant diarrhea about 3-4 days ago, along with some nausea and abdominal discomfort. There is a possibility that a family member also had similar symptoms. With ongoing diarrhea, the patient experienced progressive weakness and some palpitations. He came into the emergency room, where he was found to have rapid ventricular response with his underlying atrial fibrillation , as well as severe hypomagnesemia. Hemoglobin was 9.5. He was therefore admitted for further management Review of Systems Constitutional: Reports fatigue, Reports weakness Eyes: denies blurred vision, denies pain Ears: deny: decreased hearing, ear discharge, earache, tinnitus Ears, nose, mouth and throat: Denies headache, Denies sore throat Cardiovascular: Reports irregular heart beat, Reports leg edema (Chronic), Reports lightheadedness, Reports palpitations, Reports rapid heart beat, Reports shortness of breath Respiratory: Reports as per HPI Gastrointestinal: Reports abdominal pain, Reports diarrhea Genitourinary: Reports as per HPI (No specific complaints. Renal function has been fairly stable) Musculoskeletal: Reports as per HPI (Chronic lower extremity edema), Reports muscle weakness Integumentary: Reports lesions (Chronic inguinal hidradenitis , currently in remission) Neurological: Reports weakness Psychiatric: Denies anxiety, Denies depression Endocrine: Reports high blood sugars, Denies fatigue, Denies weight change Hematologic/Lymphatic: Reports as per HPI Past Medical History Past Medical History: Atrial Fibrillation, Asthma, Cancer, Diabetes Mellitus, Eye Disorder, GERD/Reflux, GI Bleed, Hearing Disorder / Deafness, Pneumonia, Renal Disease, Respiratory Disorder, Skin Disorder Additional Past Medical History / Comment(s): renal failure, lung CA, cardiac arrythmia, ulcer,pt has hydradenitis on b/l legs, thighs weep and bandages them daily, left leg tib/\fib fx 08/12/16. was in [facility] for rehab, went home. wants pt back in rehab.. History of Any Multi-Drug Resistant Organisms: None Reported Past Surgical History: Appendectomy, Cholecystectomy, Orthopedic Surgery Additional Past Surgical History / Comment(s): lower and middle lobe of right lung removed due to cancer, lap band, UVP3, cyst removal off hip, surgery for perforated duodenal ulcer Past Anesthesia/Blood Transfusion Reactions: No Reported Reaction Past Psychological History: Depression Smoking Status: Former smoker Past Alcohol Use History: None Reported, Occasional Additional Past Alcohol Use History / Comment(s): Patient was a smoker of 2-1/2 3 packs per day for 47 years, QUIT 4-5 YEARS AGO. He denies any medical marijuana, marijuana, street drug or alcohol use. Patient CURRENTLY AT [facility]. He has been on disability since 1990. THRU HIS WORK sustained lead poisoning there in 1971. 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 Past Drug Use History: None Reported - Past Family History Father Family Medical History: Cancer, Diabetes Mellitus, Liver Disease Mother Family Medical History: Cancer, Thyroid Disorder Medications and Allergies Home Medications Medication Instructions Recorded Confirmed Type Calcitriol [Rocaltrol] 0.25 mcg PO SUTH 06/06/16 12/02/16 History Diltiazem HCl [Diltiazem 24Hr ER] 180 mg PO DAILY 06/06/16 12/02/16 History Citalopram Hydrobromide [CeleXA] 20 mg PO DAILY 08/13/16 12/02/16 History Lansoprazole 30 mg PO DAILY 08/13/16 12/02/16 History Ergocalciferol [Vitamin D2 50,000 unit PO [id number] 08/29/16 12/02/16 History (DRISDOL)] Furosemide [Lasix] 40 mg PO DAILY 08/29/16 12/02/16 History INSULIN LISPRO (humaLOG) [humaLOG See Protocol SQ ACHS 08/29/16 12/02/16 History (formulary)] Albuterol Nebulized [Ventolin 2.5 mg INHALATION RT-QID 10/23/16 12/02/16 History Nebulized] Calcium Carbonate/Vitamin D3 1 tab PO BID 10/23/16 12/02/16 History [Calcium 600-Vit D3 200 Tablet] Ipratropium [place] [Atrovent Hfa] 2 puff INHALATION RT-QID PRN 10/23/16 History Meclizine [Antivert] 25 mg PO Q8H PRN 10/23/16 12/02/16 History Multivitamins, Thera [Multivitamin] 1 tab PO DAILY 10/23/16 12/02/16 History predniSONE 5 mg PO DAILY 10/23/16 12/02/16 History Allergies Allergy/AdvReac Type Severity Reaction Status Date / Time No Known Allergies Allergy Verified 12/02/16 12:21 Physical Exam Vitals: Vital Signs Temp Pulse Pulse Resp BP Pulse Ox 12/04/16 08:40 100 12/04/16 08:25 110 H 12/04/16 08:00 98.1 F 103 H 20 126/78 100 12/04/16 04:00 97 F L 84 18 118/81 95 12/04/16 00:00 112 H 18 12/03/16 20:39 104 H 12/03/16 20:25 96 12/03/16 20:00 98.6 F 88 18 117/64 97 12/03/16 16:29 105 H 12/03/16 16:16 104 H 12/03/16 16:00 98.5 F 95 18 106/64 95 12/03/16 15:51 94 L 12/03/16 12:00 98.2 F 105 H 18 99/56 93 L 12/03/16 11:42 96 Intake and Output 12/03/16 12/04/16 12/04/16 22:59 06:59 14:59 Intake Total 580 1025 180 Output Total 1500 250 Balance 580 -475 -70 Intake: IV 300 Diltiazem 125 mg In 60 Sodium Chloride 0.9% 100 ml @ 5 MG/HR 5 mls/hr IV .Q24H [facility] Rx#:[id number] Sodium Chloride 0.9% 1, 240 000 ml @ 20 mls/hr IV . Q24H [facility] Rx#:[id number] Intake, IV Titration 125 Amount Diltiazem 125 mg In 125 Sodium Chloride 0.9% 100 ml @ 10 MG/HR 10 mls/hr IV .[id number] [facility] Rx#: [id number] Oral 580 600 180 Output: Urine 1500 250 Other: Voiding Method Urinal Urinal Urinal # Bowel Movements 0 Weight 140.2 kg 150.6 kg - Constitutional General appearance: no acute distress - EENT Eyes: EOMI, PERRLA ENT: hearing grossly normal, normal oropharynx - Neck Neck: no lymphadenopathy Thyroid: bilateral: normal size - Respiratory Respiratory: bilateral: CTA - Cardiovascular Rhythm: irregularly irregular Heart sounds: normal: S1, S2 - Gastrointestinal General gastrointestinal: normal bowel sounds, soft - Integumentary Integumentary: normal - Neurologic Neurologic: CNII-XII intact - Musculoskeletal Musculoskeletal: generalized weakness, strength equal bilaterally - Psychiatric Psychiatric: A&O x's 3, appropriate affect Results CBC & Chem 7: 12/04/16 09:57 12/04/16 09:57 Labs: Abnormal Lab Results - Last 24 Hours (Table) 12/03/16 12/03/16 12/04/16 Range/Units 16:13 20:41 05:31 WBC (3.8-10.6) k/uL RBC (4.30-5.90) m/uL Hgb (13.0-17.5) gm/dL Hct (39.0-53.0) % MCH (25.0-35.0) pg MCHC (31.0-37.0) g/dL RDW (11.5-15.5) % Neutrophils # (1.3-7.7) k/uL POC Glucose (mg/dL) 144 H 130 H (75-99) mg/dL Magnesium 1.5 L (1.6-2.3) mg/dL 12/04/16 12/04/16 12/04/16 Range/Units 06:16 09:57 09:57 WBC 13.2 H (3.8-10.6) k/uL RBC 3.64 L (4.30-5.90) m/uL Hgb 8.8 L (13.0-17.5) gm/dL Hct 30.0 L (39.0-53.0) % MCH 24.2 L (25.0-35.0) pg MCHC 29.4 L (31.0-37.0) g/dL RDW 16.0 H (11.5-15.5) % Neutrophils # 10.7 H (1.3-7.7) k/uL POC Glucose (mg/dL) 111 H (75-99) mg/dL Magnesium 1.4 L (1.6-2.3) mg/dL Chest x-ray: report reviewed Assessment and Plan (1) History of lung cancer Narrative/Plan: The patient has a prior history of squamous cell carcinoma of the lung, with treatment course as described. He was not able to complete her adjuvant therapy , due to chemo related competitions. As noted, after significant discussion he decided against adjuvant radiation too. However he has remained in remission, and is currently on a every 6 month follow-up. His last CT scans in 07/05 showed no evidence of recurrence. Chest x-ray done this admission shows a no evidence of recurrence either. He will continue on regular follow-up with serial CT scans, every 6 months to 5 years a complete. In general, risk of recurrence decreases drastically after 2 years. I believe his next set of scans and office follow-up are due next month. Status: Acute (2) Anemia in chronic kidney disease Narrative/Plan: The patient is on Procrit for the same in the office. He has done quite well with this , and actually did not require a dose of this his last visit due to hemoglobin being greater than 11. He has not had any Procrit now for more than 3 months because he was unable to come to the office, due to hospital admissions. Despite that, hemoglobin continues to be in a safe range at around 9. Case was discussed with the admitting service. there is no indication to start back on Procrit while in the hospital. It was recommended, that he resume his office follow-up with blood draws and Procrit injections as needed, after discharge Status: Acute Plan: Defer to the admitting service and other consultants for management of his other medical problems.
[2016-12-04] MEDS ORDERED: CALCITRIOL 0.25 MCG CAP PO SCH (12:00)
--- NOTE | 2016-12-04 12:19 | P.PN ---
Subjective Principal diagnosis: Diarrhea with resulting electrolyte abnormalities Patient presented to the emergency room with with hypocalcemia hypomagnesemia dehydration. As of this time patient is currently rehydrated, still has appeared to resolve, electrolytes have been corrected magnesium is currently 1.5 we'll continue to follow the magnesium placement protocol and discuss case with cardiology patient's Cardizem drip has been stopped patient's changed to orals to control the rate will reevaluate the both the A. fib, and the hypomagnesemia and anticipate discharging this patient home they both appear to be corrected. Objective - Vital Signs Vital signs: Vital Signs Temp 98.1 F 12/04/16 08:00 Pulse 100 12/04/16 08:40 Resp 20 12/04/16 08:00 BP 126/78 12/04/16 08:00 Pulse Ox 100 12/04/16 08:00 Intake & Output 12/03/16 12/04/16 12/04/16 18:59 06:59 18:59 Intake Total 762 1425 180 Output Total 150 1500 250 Balance 612 -75 -70 Weight 140.2 kg 150.6 kg Intake: IV 300 Diltiazem 125 mg In 60 Sodium Chloride 0.9% 100 ml @ 5 MG/HR 5 mls/hr IV .Q24H [facility] Rx#:[id number] Sodium Chloride 0.9% 1, 240 000 ml @ 20 mls/hr IV . Q24H [facility] Rx#:[id number] Intake, IV Titration 125 Amount Diltiazem 125 mg In 125 Sodium Chloride 0.9% 100 ml @ 10 MG/HR 10 mls/hr IV .[id number] [facility] Rx#: [id number] Oral 762 1000 180 Output: Urine 150 1500 250 Other: Voiding Method Urinal Urinal Urinal # Bowel Movements 0 - Exam General: [Patient awake, alert and oriented times 3. Patient in no acute distress.] HEENT: [PERRL. EOMI. No pharyngeal erythema or exudate.] Neck: [No adenopathy.] Cardiac: [Heart regular in rate and rhythm. No S3. No S4. No clicks, rubs. No murmur.] Lungs: [Clear to auscultation bilaterally.] Abdomen: [No mass. No organomegaly. Bowel sounds presnt and normoactive in all 4 quadrants.] Severe hydradenitis bilateral thighs and buttocks somewhat well controlled at this time Extremes: [No edema no cyanosis no claudication normal pulses] : [] Musculoskeletal: [No joint erythema, edema or tenderness.] Skin: [No rash.] Neurologic: [No lateralizing deficits. CN II - XII grossly intact.] Lymphatic: [No adenopathy.] - Labs CBC & Chem 7: 12/04/16 09:57 12/04/16 09:57 Labs: Abnormal Lab Results - Last 24 Hours (Table) 12/03/16 12/03/16 12/04/16 Range/Units 16:13 20:41 05:31 WBC (3.8-10.6) k/uL RBC (4.30-5.90) m/uL Hgb (13.0-17.5) gm/dL Hct (39.0-53.0) % MCH (25.0-35.0) pg MCHC (31.0-37.0) g/dL RDW (11.5-15.5) % Neutrophils # (1.3-7.7) k/uL POC Glucose (mg/dL) 144 H 130 H (75-99) mg/dL Magnesium 1.5 L (1.6-2.3) mg/dL 12/04/16 12/04/16 12/04/16 Range/Units 06:16 09:57 09:57 WBC 13.2 H (3.8-10.6) k/uL RBC 3.64 L (4.30-5.90) m/uL Hgb 8.8 L (13.0-17.5) gm/dL Hct 30.0 L (39.0-53.0) % MCH 24.2 L (25.0-35.0) pg MCHC 29.4 L (31.0-37.0) g/dL RDW 16.0 H (11.5-15.5) % Neutrophils # 10.7 H (1.3-7.7) k/uL POC Glucose (mg/dL) 111 H (75-99) mg/dL Magnesium 1.4 L (1.6-2.3) mg/dL 12/04/16 Range/Units 11:46 WBC (3.8-10.6) k/uL RBC (4.30-5.90) m/uL Hgb (13.0-17.5) gm/dL Hct (39.0-53.0) % MCH (25.0-35.0) pg MCHC (31.0-37.0) g/dL RDW (11.5-15.5) % Neutrophils # (1.3-7.7) k/uL POC Glucose (mg/dL) 110 H (75-99) mg/dL Magnesium (1.6-2.3) mg/dL Assessment and Plan (1) Atrial fibrillation with rapid ventricular response Narrative/Plan: Currently anxious him channel claudio aggressive rehydration replace electrolytes. Cardizem drip was initiated by cardiology has been changed to oral Status: Acute (2) Hypocalcemia Narrative/Plan: Patient currently on calcium replacement protocol. Has currently resolved Status: Acute (3) Hypomagnesemia Narrative/Plan: Patient on magnesium replacement protocol Status: Acute (4) Hidradenitis suppurativa Narrative/Plan: This is been cultured and dull with multiple time we do not actually culture any bacteria out in the the purulent exudate Dressing changes daily or as needed Status: Chronic (5) Chronic a-fib Narrative/Plan: Patient has not been on anticoagulants basically because his buttocks bleeds excessively from the antiplatelet therapy Cardizem drip has been changed to oral Status: Acute Plan: Patient has been rehydrated and electrolytes abnormalities have been corrected with stool has resolved Review rhythm tomorrow as well as magnesium anticipate discharge home within the next 12-24 hours
[2016-12-04 13:13] LABS: Calcium 7.3 mg/dL (8.4-10.2); Total Bilirubin 0.3 mg/dL (0.2-1.3); Total Protein 6.5 g/dL (6.3-8.2)
[2016-12-04] MEDS: MAGNESIUM SULFATE-D5W PMX 1 GM in DEXTROSE/WATER 1 100ML.BAG IVPB SCH ×2 (13:19→14:24)
[2016-12-04] MEDS: CHLORPHEN-HYDROcod 8-10mg/5ml 5 ML ORAL.SYRG PO SCH (13:52)
--- NOTE | 2016-12-04 13:55 | P.PN ---
Subjective Principal diagnosis: A. fib this is a pleasant 66-year-old gentleman with a past medical history significant for paroxysmal atrial fibrillation, hypertension, diabetes, was admitted to the hospital was A. fib with RVR. The patient was started on Cardizem drip yesterday and the Cardizem drip was stopped and currently he is on Cardizem by mouth. The heart rate has been between 100-110 and he is in atrial fibrillation. clinically, he denies having any chest pain or discomfort or difficulty breathing. He underwent an echocardiogram in September 2016 and that showed cardiomyopathy with EF about 45%. Please note that the patient has a skin disorder brought him for a bleeding and that why he is not on any anticoagulation. Also the patient has history of lung cancer. Objective - Vital Signs Vital signs: Vital Signs Temp 98.6 F 12/04/16 12:00 Pulse 110 H 12/04/16 12:00 Resp 20 12/04/16 12:00 BP 108/62 12/04/16 12:00 Pulse Ox 97 12/04/16 12:00 Intake & Output 12/03/16 12/04/16 12/04/16 18:59 06:59 18:59 Intake Total 762 1425 402 Output Total 150 1500 250 Balance 612 -75 152 Weight 140.2 kg 150.6 kg Intake: IV 300 Diltiazem 125 mg In 60 Sodium Chloride 0.9% 100 ml @ 5 MG/HR 5 mls/hr IV .Q24H [facility] Rx#:[id number] Sodium Chloride 0.9% 1, 240 000 ml @ 20 mls/hr IV . Q24H [facility] Rx#:[id number] Intake, IV Titration 125 Amount Diltiazem 125 mg In 125 Sodium Chloride 0.9% 100 ml @ 10 MG/HR 10 mls/hr IV .[id number] [facility] Rx#: [id number] Oral 762 1000 402 Output: Urine 150 1500 250 Other: Voiding Method Urinal Urinal Urinal # Bowel Movements 0 - Constitutional General appearance: Present: no acute distress - Respiratory Respiratory: bilateral: CTA - Cardiovascular Rhythm: irregularly irregular Heart sounds: normal: S1, S2 - Labs CBC & Chem 7: 12/04/16 09:57 12/04/16 09:57 Labs: Abnormal Lab Results - Last 24 Hours (Table) 12/03/16 12/03/16 12/04/16 Range/Units 16:13 20:41 05:31 WBC (3.8-10.6) k/uL RBC (4.30-5.90) m/uL Hgb (13.0-17.5) gm/dL Hct (39.0-53.0) % MCH (25.0-35.0) pg MCHC (31.0-37.0) g/dL RDW (11.5-15.5) % Neutrophils # (1.3-7.7) k/uL Creatinine (0.66-1.25) mg/dL Glucose (74-99) mg/dL POC Glucose (mg/dL) 144 H 130 H (75-99) mg/dL Calcium (8.4-10.2) mg/dL Magnesium 1.5 L (1.6-2.3) mg/dL AST (17-59) U/L Albumin (3.5-5.0) g/dL 12/04/16 12/04/16 12/04/16 Range/Units 06:16 09:57 09:57 WBC 13.2 H (3.8-10.6) k/uL RBC 3.64 L (4.30-5.90) m/uL Hgb 8.8 L (13.0-17.5) gm/dL Hct 30.0 L (39.0-53.0) % MCH 24.2 L (25.0-35.0) pg MCHC 29.4 L (31.0-37.0) g/dL RDW 16.0 H (11.5-15.5) % Neutrophils # 10.7 H (1.3-7.7) k/uL Creatinine 1.49 H (0.66-1.25) mg/dL Glucose 103 H (74-99) mg/dL POC Glucose (mg/dL) 111 H (75-99) mg/dL Calcium 7.3 L (8.4-10.2) mg/dL Magnesium 1.4 L (1.6-2.3) mg/dL AST 13 L (17-59) U/L Albumin 2.3 L (3.5-5.0) g/dL 12/04/16 Range/Units 11:46 WBC (3.8-10.6) k/uL RBC (4.30-5.90) m/uL Hgb (13.0-17.5) gm/dL Hct (39.0-53.0) % MCH (25.0-35.0) pg MCHC (31.0-37.0) g/dL RDW (11.5-15.5) % Neutrophils # (1.3-7.7) k/uL Creatinine (0.66-1.25) mg/dL Glucose (74-99) mg/dL POC Glucose (mg/dL) 110 H (75-99) mg/dL Calcium (8.4-10.2) mg/dL Magnesium (1.6-2.3) mg/dL AST (17-59) U/L Albumin (3.5-5.0) g/dL Assessment and Plan Plan: assessment #1 atrial fibrillation with heart rate around 100 #2 mild cardiomyopathy with an ejection fraction between 45-50% #3 history of lung cancer #4 multiple comorbid conditions Plan #1 the patient was instructed cardizem by mouth we'll continue that and continue monitor the heart rate #2 he is not a candidate for anticoagulation in view of skin disorder brought him for bleeding #3 we will continue following up with him
[2016-12-04] MEDS: SODIUM CHLORIDE 0.9% 1,000 ML IV SCH (15:37)
[2016-12-04 16:37] LABS: Glucose,Whole Blood 109 mg/dL (75-99)
[2016-12-04 20:51] LABS: Glucose,Whole Blood 136 mg/dL (75-99)
[2016-12-04] MEDS: IPRATROPIUM-ALBUTEROL 3 ML NEB INHALATION SCH (21:04)
[2016-12-04] MEDS ORDERED: BENZONATATE 100 MG CAP PO PRN (21:42)
[2016-12-04] MEDS: HYDROcodone/APAP 10-325MG 1 EACH TAB PO SCH ×2 (22:52)
[2016-12-04] MEDS ORDERED: HYDROcodone/APAP 10-325MG 1 EACH TAB PO PRN ×2 (22:53→22:54)
[2016-12-05 02:51] LABS: Anion Gap 9 mmol/L; Blood Urea Nitrogen 20 mg/dL (9-20); Calcium 7.6 mg/dL (8.4-10.2); Carbon Dioxide 25 mmol/L (22-30); Chloride 104 mmol/L (98-107); Glucose 100 mg/dL (74-99); Magnesium 1.7 mg/dL (1.6-2.3); Non-African American GFR(MDRD) 50 (>60 ml/min/1.73 sqM); Potassium 3.9 mmol/L (3.5-5.1); Sodium 138 mmol/L (137-145)
[2016-12-05] MEDS: MAGNESIUM SULFATE-D5W PMX 1 GM in DEXTROSE/WATER 1 100ML.BAG IVPB SCH ×2 (03:59→04:57)
[2016-12-05] MEDS: CHLORPHEN-HYDROcod 8-10mg/5ml 5 ML ORAL.SYRG PO SCH (06:11)
[2016-12-05] MEDS: PANTOPRAZOLE 40 MG TABLET PO SCH (06:55)
[2016-12-05] MEDS: IPRATROPIUM-ALBUTEROL 3 ML NEB INHALATION SCH ×2 (07:33→11:20)
[2016-12-05] MEDS ORDERED: Magnesium Replacement Protocol 1 EACH MISC MISCELLANE PRN (08:17)
[2016-12-05] MEDS ORDERED: Potassium Replacement Protocol 1 EACH MISC MISCELLANE PRN (08:20)
[2016-12-05] MEDS ORDERED: MAGNESIUM SULFATE-D5W PMX 1 GM in DEXTROSE/WATER 1 100ML.BAG IVPB SCH (08:30)
[2016-12-05] MEDS: FUROSEMIDE 40 MG TAB PO SCH (08:55)
[2016-12-05] MEDS: predniSONE 5 MG TAB PO SCH (08:55)
[2016-12-05] MEDS: CITALOPRAM HYDROBROMIDE 20 MG TAB PO SCH (08:55)
[2016-12-05] MEDS: ASPIRIN 325 MG TAB PO SCH (08:55)
[2016-12-05] MEDS: CALCIUM CARB-VIT D 500MG-200UN 1 EACH TAB PO SCH (08:55)
[2016-12-05] MEDS: LINAGLIPTIN 5 MG TABLET PO SCH (08:55)
[2016-12-05] MEDS: MAGNESIUM OXIDE 400 MG TAB PO SCH (08:55)
[2016-12-05] MEDS: DILTIAZEM CD 180 MG CAP.ER.24H PO SCH (08:55)
[2016-12-05] MEDS: MULTIVITAMINS, THERA 1 EACH TAB PO SCH (08:55)
[2016-12-05] MEDS ORDERED: POTASSIUM CHLORIDE ER 20 MEQ TAB.ER PO SCH (09:00)
[2016-12-05] MEDS: DOXYCYCLINE 50 MG CAP PO SCH (09:53)
--- NOTE | 2016-12-05 10:17 | P.PN ---
Subjective Principal diagnosis: A. fib this is a pleasant 66-year-old gentleman with a past medical history significant for paroxysmal atrial fibrillation, hypertension, diabetes, was admitted to the hospital was A. fib with RVR. The patient was started on Cardizem drip yesterday and the Cardizem drip was stopped and currently he is on Cardizem by mouth. The heart rate has been between 100-110 and he is in atrial fibrillation. clinically, he denies having any chest pain or discomfort or difficulty breathing. He underwent an echocardiogram in September 2016 and that showed cardiomyopathy with EF about 45%. Please note that the patient has a skin disorder brought him for a bleeding and that why he is not on any anticoagulation. Also the patient has history of lung cancer. On follow-up with the patient today, he is feeling good. Denies having any chest pain or shortness of breath. I am going to increase the dose of Cardizem to 240 mg by mouth daily. The patient can be discharged home. Objective - Vital Signs Vital signs: Vital Signs Temp 97 F L 12/05/16 03:27 Pulse 88 12/05/16 07:43 Resp 20 12/05/16 03:27 BP 125/76 12/05/16 03:27 Pulse Ox 94 L 12/05/16 03:27 Intake & Output 12/04/16 12/05/16 12/05/16 18:59 06:59 18:59 Intake Total 522 920 118 Output Total 1325 1050 Balance -803 -130 118 Weight 150.6 kg Intake: IV 120 180 Sodium Chloride 0.9% 1, 120 180 000 ml @ 20 mls/hr IV . Q24H [facility] Rx#:[id number] Oral 402 740 118 Output: Urine 1325 1050 Other: Voiding Method Urinal Urinal - Constitutional General appearance: Present: no acute distress - Respiratory Respiratory: bilateral: CTA - Cardiovascular Rhythm: irregularly irregular Heart sounds: normal: S1, S2 - Labs CBC & Chem 7: 12/04/16 09:57 12/05/16 02:17 Labs: Abnormal Lab Results - Last 24 Hours (Table) 12/04/16 12/04/16 12/04/16 Range/Units 09:57 11:46 16:34 Creatinine 1.49 H (0.66-1.25) mg/dL Glucose 103 H (74-99) mg/dL POC Glucose (mg/dL) 110 H 109 H (75-99) mg/dL Calcium 7.3 L (8.4-10.2) mg/dL Magnesium 1.4 L (1.6-2.3) mg/dL AST 13 L (17-59) U/L Albumin 2.3 L (3.5-5.0) g/dL 12/04/16 12/05/16 Range/Units 20:30 02:17 Creatinine 1.40 H (0.66-1.25) mg/dL Glucose 100 H (74-99) mg/dL POC Glucose (mg/dL) 136 H (75-99) mg/dL Calcium 7.6 L (8.4-10.2) mg/dL Magnesium (1.6-2.3) mg/dL AST (17-59) U/L Albumin (3.5-5.0) g/dL Microbiology - Last 24 Hours (Table) 12/03/16 10:32 Stool for WBCs - Final Stool 12/03/16 10:32 Stool Culture - Preliminary Stool Assessment and Plan Plan: assessment #1 atrial fibrillation with heart rate around 100 #2 mild cardiomyopathy with an ejection fraction between 45-50% #3 history of lung cancer #4 multiple comorbid conditions Plan #1 the patient was instructed cardizem by mouth we'll continue that and continue monitor the heart rate #2 he is not a candidate for anticoagulation in view of skin disorder brought him for bleeding #3 the patient can be discharged home
[2016-12-05 10:28] VITALS: BP 126/67; RESP 18; TEMP 98.3
--- NOTE | 2016-12-05 11:00 | P.DS ---
Providers Date of admission: 12/02/16 15:51 Expected date of discharge: 12/05/16 Attending physician: Joel Flores Consults: 12/03/16 10:18 Consult Physician Routine Consulting Provider: Adalberto Mireles Consult Reason/Comments: Family request, history of lung cancer, hypocalcemia Do you want consulting provider notified?: Yes Primary care physician: [facility] Course: Patient is a 66-year-old male, patient of Dr. Flores in the outpatient setting, with past medical history significant for paroxysmal atrial fibrillation, hypertension, diabetes mellitus, cardiomyopathy with EF between 45 -50 %, lung cancer, chronic renal failure stage III, and hidradenitis suppurative. Patient was originally sent from Dr. Flores's office with complaints of diarrhea and electrolyte abnormalities. In the emergency department, patient was found to have evidence of atrial fibrillation with rapid ventricular rate, hypocalcemia, and hypomagnesemia. Patient was placed in IV Cardizem for rate control and consult was requested for cardiology service. Patient was initiated on IV Cardizem and changed to oral Cardizem with increase in dose. Patient was also evaluated by hematology for chronic anemia. Patient to follow-up in office for blood draws and Procrit injections as needed after discharge. Patient improved significantly during his hospital stay and was deemed stable for discharge to home with home with close follow-up in the outpatient setting. Discharge diagnoses: 1. Paroxysmal atrial fibrillation with rapid ventricular response, present on admission, not on chronic anticoagulation secondary to severe hidradenitis, improved. 2. Acute on chronic diastolic heart failure with last ejection fraction 45-50% , improved. 3. Hypocalcemia, present on admission, resolved. 4. Hypomagnesemia, present on admission, resolved. 5. Hidradenitis suppurativa, chronic. 6. History of hypertension. 7. Diabetes mellitus type 2. 8. 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 lung cancer. 9. Chronic renal failure, stage III. 10. Anemia of chronic kidney disease. The above impression and plan have been discussed and directed by Dr. Flores. Tino MEDEL acting as scribe for Dr. Flores. Pertinent Studies: Chest x-ray; EKG Patient Condition at Discharge: Good Plan - Discharge Summary New Discharge Prescriptions: Aspirin 325 mg PO DAILY #30 tab Diltiazem Cd [Cardizem CD] 240 mg PO DAILY #30 cap.er.24h Magnesium Oxide [Mag-Ox] 400 mg PO BID #60 tab Discharge Medication List Calcitriol [Rocaltrol] 0.25 mcg PO SUTH 06/06/16 [History] Citalopram Hydrobromide [CeleXA] 20 mg PO DAILY 08/13/16 [History] Lansoprazole 30 mg PO DAILY 08/13/16 [History] Ergocalciferol [Vitamin D2 (DRISDOL)] 50,000 unit PO [id number] 08/29/16 [History] Furosemide [Lasix] 40 mg PO DAILY 08/29/16 [History] INSULIN LISPRO (humaLOG) [humaLOG (formulary)] See Protocol SQ ACHS 08/29/16 [ History] Albuterol Nebulized [Ventolin Nebulized] 2.5 mg INHALATION RT-QID 10/23/16 [ History] Calcium Carbonate/Vitamin D3 [Calcium 600-Vit D3 200 Tablet] 1 tab PO BID [History] Ipratropium [place] [Atrovent Hfa] 2 puff INHALATION RT-QID PRN 10/23/16 [ History] Meclizine [Antivert] 25 mg PO Q8H PRN 10/23/16 [History] Multivitamins, Thera [Multivitamin] 1 tab PO DAILY 10/23/16 [History] predniSONE 5 mg PO DAILY 10/23/16 [History] ALPRAZolam [Xanax] 0.25 mg PO QID PRN #90 tab 10/27/16 [Rx] Doxycycline [Vibramycin] 100 mg PO BID cap 10/27/16 [Rx] Hydrocodone/Acetaminophen [[place] 10-325] 2 tab PO Q12H #120 tab 10/27/16 [Rx] Linagliptin [Tradjenta] 5 mg PO DAILY tablet 10/27/16 [Rx] Aspirin 325 mg PO DAILY #30 tab 12/05/16 [Rx] Diltiazem Cd [Cardizem CD] 240 mg PO DAILY #30 cap.er.24h 12/05/16 [Rx] Magnesium Oxide [Mag-Ox] 400 mg PO BID #60 tab 12/05/16 [Rx] Follow up Appointment(s)/Referral(s): Joel Florse Jr, DO [Primary Care Provider] - 1-2 days [facility], [NON-STAFF] - Patient Instructions/Handouts: Atrial Fibrillation (DC) Activity/Diet/Wound Care/Special Instructions: Follow-up with Dr. Mireles in the outpatient setting as previously scheduled. Discharge Disposition: HOME WITH HOME HEALTH SERVICES
[2016-12-05 11:35] VITALS: PULSE 92
[2016-12-06] MEDS ORDERED: DILTIAZEM CD 240 MG CAP.ER.24H PO SCH (09:00)
[2016-12-16] MEDS ORDERED: ERGOCALCIFEROL 50,000 UNIT CAP PO SCH (09:00)
== END 2016-12-05 12:44 | disposition home health service (06) | DRG 308 ==
LOC: EC 11:48 → 6SEL 15:51
PROVIDERS: ADMIT Family Medicine; ATTEND Family Medicine
DX: I48.0 Paroxysmal atrial fibrillation (principal); I50.33 Acute on chronic diastolic (congestive) heart failure; N17.9 Acute kidney failure, unspecified; I42.9 Cardiomyopathy, unspecified; E11.22 Type 2 diabetes mellitus with diabetic chronic kidney disease; E83.42 Hypomagnesemia; E83.51 Hypocalcemia; I13.0 Hypertensive heart and chronic kidney disease with heart failure and stage 1 through stage 4 chronic kidney disease, or unspecified chronic kidney disease; D63.1 Anemia in chronic kidney disease; E86.0 Dehydration; H91.90 Unspecified hearing loss, unspecified ear; N18.3 Chronic kidney disease, stage 3 (moderate); I25.10 Atherosclerotic heart disease of native coronary artery without angina pectoris; I48.2 Chronic atrial fibrillation; J45.909 Unspecified asthma, uncomplicated; K21.9 Gastro-esophageal reflux disease without esophagitis; L73.2 Hidradenitis suppurativa; Z85.118 Personal history of other malignant neoplasm of bronchus and lung; Z87.11 Personal history of peptic ulcer disease; Z87.891 Personal history of nicotine dependence; Z79.4 Long term (current) use of insulin; Z79.899 Other long term (current) drug therapy
CPT/HCPCS: 36415; 71010; 80048; 80053; 80061; 82550; 82553; 83735; 83880; 84100; 84484; 85025; 85610; 85730; 87045; 87046; 89055; 93005; 94640; 94760; 96365; 96366; 96367; 96375; 99285

== ENCOUNTER → 2016-12-27 | Outpatient (CLI) | payer MEDICARE ==
[2016-12-27 13:15] LABS: Blood Urea Nitrogen 34 mg/dL (9-20); Non-African American GFR(MDRD) 55 (>60 ml/min/1.73 sqM)
--- NOTE | 2016-12-27 14:26 | CT ---
"EXAMINATION TYPE: CT ChestAbdPelvis w con DATE OF EXAM: 12/27/2016 2:02 PM COMPARISON: 07/04/2016 HISTORY: 66-year-old male with lung CA f/u TECHNIQUE: Contiguous axial scanning of the chest, abdomen, and pelvis performed with IV Contrast, pa tient injected with 80 mL of Visipaque 320. Delayed images through the kidneys were obtained. A seco nd 6 minute delay was performed just to the kidneys. Coronal/sagittal reconstructions performed. CT DLP: 3157 mGycm Automated exposure control for dose reduction was used. FINDINGS: CHEST: Heart is borderline enlarged without pericardial effusion. Coronary vessel calcifications are present in remarkable for coronary artery disease. Ascending aorta is mildly aneurysmal at 4.1 cm with mild atherosclerotic arch calcifications and conv entional arch vessel branching anatomy. Upper descending thoracic aorta is also mildly aneurysmal at 3.4 cm. The aorta is tortuous and the lower descending thoracic aorta is mildly aneurysmal at 3.0 cm as well. These measurements are stable from 03/23/2016. Large caliber to the main right and left pulmonary arteries at 3.5 and 2.9 cm, respectively, suggests underlying pulmonary arterial hypertension. Scattered nonenlarged mediastinal lymph nodes. No thoracic lymphadenopathy by CT size criteria. There is mild right greater than left gynecomastia. Postsurgical changes appear to reflect right middle and right lower lobectomy. There is some minimal layering fluid and debris within the stump of the bronchus intermedius and some tiny centrilobular an d tree-in-bud nodular densities at the right base. A trace right pleural effusion remains. No new pul monary nodule or mass is seen. No consolidation. ABDOMEN: A lap band remains appropriately positioned. No focal liver lesion. Cholecystectomy clips are present . Adrenal glands, spleen, and mildly atrophic pancreas show no gross abnormality. Redemonstrated are numerous cysts within the kidney, largest in the lateral right kidney measuring up to 5.8 cm. Some of these appear to be small hemorrhagic cysts but are overall unchanged from 07/04/20 16. No dilated small bowel, free fluid, or free air. No mesenteric or retroperitoneal lymphadenopathy see n. There is moderate stool burden and mild sigmoid diverticulosis without pericolonic inflammatory ch driss. There is no excretion of contrast seen on the delayed kidney images. The 6 minute delay shows some ex creted contrast in the collecting systems and ureters. Pelvis: Bladder is urine distended. Mildly enlarged left external iliac chain lymph node measuring 1.6 cm is unchanged and probably reactive/post inflammatory. No abnormal fluid collection in the pelvis. Bones: Mild stranding and edema throughout the subcutaneous fat suggesting mild diffuse anasarca type change s. Mild degenerative changes at the hips and a degenerated levoconvex scoliosis of the lumbar spine. Prominent end plate Schmorl's nodes involving L1, L2, and L3 vertebral bodies. No osseous destructive process seen. IMPRESSION: 1. POSTSURGICAL CHANGES SEEM TO REFLECT RIGHT MIDDLE AND RIGHT LOWER LOBECTOMY. NO NEW MASS OR LYMPHA DENOPATHY TO SUGGEST RECURRENT DISEASE. A TRACE RIGHT PLEURAL EFFUSION APPEARS CHRONIC. 2. THERE IS SOME LAYERING FLUID AND DEBRIS WITHIN THE STUMP OF THE BRONCHUS INTERMEDIUS. GIVEN SOME N ODULAR AND TREE-IN-BUD DENSITIES WITHIN THE RIGHT BASE, CORRELATE FOR POSSIBLE CHRONIC MICROASPIRATIO N. 3. NO EXCRETION OF CONTRAST SEEN UNTIL AN ADDITIONAL 6 MINUTE DELAYED SCAN THROUGH THE KIDNEYS. CORRE LATE FOR MARIAM INCLUDING CONTRAST NEPHROPATHY. 4. CAD, PULMONARY ARTERIAL HYPERTENSION, STABLE MILDLY ECTATIC/ANEURYSMAL THORACIC AORTA, MODERATE ST OOL BURDEN, A MILD SIGMOID DIVERTICULOSIS. A Roberts message has been communicated to Adalberto Mireles MD regarding impression #3 via the [employer] 0 | Critical Result system on 12/27/2016 2:23 PM, Message ID [id number]."
== END | disposition home or self-care (01) ==
LOC: RADCTMAIN 12:33
PROVIDERS: ATTEND Internal Medicine Hematology & Oncology
DX: C34.90 Malignant neoplasm of unspecified part of unspecified bronchus or lung (principal); J98.4 Other disorders of lung; I25.10 Atherosclerotic heart disease of native coronary artery without angina pectoris; I27.2 Other secondary pulmonary hypertension; K57.30 Diverticulosis of large intestine without perforation or abscess without bleeding; Z90.2 Acquired absence of lung [part of]
CPT/HCPCS: 82565; 84520; 71260; 74177; 36415; Q9967

== ENCOUNTER 2017-02-08 00:31 | Inpatient (IN) | payer MEDICARE ==
[2017-02-08] MEDS ORDERED: IPRATROPIUM-ALBUTEROL 3 ML NEB INHALATION STA (00:54)
[2017-02-08] MEDS ORDERED: NITROGLYCERIN OINT 1 INCH/GM PACKET TOPICAL STA (01:15)
[2017-02-08 01:34] LABS: Calcium 8.3 mg/dL (8.4-10.2); Magnesium 1.4 mg/dL (1.6-2.3); Potassium 5.1 mmol/L (3.5-5.1); Total Bilirubin 0.5 mg/dL (0.2-1.3); Total Protein 8.1 g/dL (6.3-8.2)
[2017-02-08 01:39] LABS: Anisocytosis Slight; Basophils # (A) 0.1 k/uL (0-0.2); Basophils % (A) 0 %; CH 24.4; CHCM 29.3; Eosinophils # (A) 0.1 k/uL (0-0.7); Eosinophils % (A) 1 %; HCT 34.3 % (39.0-53.0); HDW 2.62; HGB 10.1 gm/dL (13.0-17.5); Hypochromasia Marked; Luc # (Auto) 0.36; Luc % (Auto) 2; Lymphocytes # (A) 1.3 k/uL (1.0-4.8); Lymphocytes % (A) 6 %; MCH 24.5 pg (25.0-35.0); MCHC 29.4 g/dL (31.0-37.0); MCV 83.5 fL (80.0-100.0); Mean Platelet Volume 7.2; Microcytosis Slight; Monocytes # (A) 1.3 k/uL (0-1.0); Monocytes % (A) 6 %; Neutrophils # (A) 20.2 k/uL (1.3-7.7); Neutrophils % (A) 86 %; RBC 4.11 m/uL (4.30-5.90); RDW 18.8 % (11.5-15.5); WBC 23.4 k/uL (3.8-10.6); WBC (Perox) 24.52
[2017-02-08] MEDS ORDERED: FUROSEMIDE 10 MG/ML 4 ML VIAL IV STA (01:42)
--- NOTE | 2017-02-08 01:43 | XR ---
EXAM: XR Chest, 1 View. CLINICAL HISTORY: Reason: dyspnea TECHNIQUE: Frontal view of the chest. COMPARISON: Chest x-ray 12/13/16 FINDINGS: Lungs: Stable right basilar opacities and small right pleural effusion. Stable bilateral interstitial prominence.. Pleural space: See above. Heart: Cardiac silhouette is stable. Mediastinum: Unremarkable. IMPRESSION: 1. Stable right basilar opacities and small right pleural effusion. Correlate for pneumonia. 2. Stable interstitial prominence, likely pulmonary edema versus atypical infection.
[2017-02-08 01:48] LABS: Partial Thromboplastin Time 25.5 sec (22.0-30.0); Prothrombin Time 10.5 sec (9.0-12.0)
[2017-02-08] MEDS ORDERED: ENOXAPARIN 150 MG/ML SYRINGE SQ STA (03:14)
[2017-02-08] MEDS ORDERED: MORPHINE SULFATE 4 MG/ML SYRINGE IV STA (03:24)
[2017-02-08] MEDS ORDERED: MECLIZINE 25 MG TAB PO PRN (04:02)
[2017-02-08] MEDS ORDERED: IPRATROPIUM 0.5 MG/2.5 ML NEBU INHALATION PRN (04:02)
[2017-02-08] MEDS ORDERED: ALPRAZolam 0.25 MG TAB PO PRN (04:02)
--- NOTE | 2017-02-08 04:14 | ED ---
SOB HPI - General Chief Complaint: Shortness of Breath Stated Complaint: lethargy Time Seen by Provider: 02/08/17 00:38 Source: patient Mode of arrival: EMS Limitations: no limitations - History of Present Illness Initial Comments: This patient is a 66-year-old man who presents to be evaluated for worsening of shortness of breath. The patient does state that he had seen his physician, Dr. Adame nearly a week ago. He had increased his diuretics, but is still having shortness of breath, cough with some clearish sputum, and increased leg edema. He is not having any chest pain. He has not noted fever or chills. He had increased his Lasix dose to 80 mg twice per day from the previous 40. MD Complaint: shortness of breath, cough -: week(s) Consistency: constant Improves With: nothing Worsens With: lying flat, exertion Known History Of: congestive heart failure Associated Symptoms: cough Treatments Prior to Arrival: diuretics - Related Data Home Medications Medication Instructions Recorded Confirmed Calcitriol [Rocaltrol] 0.25 mcg PO SUTH 06/06/16 02/08/17 Citalopram Hydrobromide [CeleXA] 20 mg PO DAILY 08/13/16 02/08/17 Ergocalciferol [Vitamin D2 50,000 unit PO [id number] 08/29/16 02/08/17 (DRISDOL)] Furosemide [Lasix] 80 mg PO BID 08/29/16 02/08/17 Albuterol Nebulized [Ventolin 2.5 mg INHALATION RT-QID 10/23/16 02/08/17 Nebulized] Calcium Carbonate/Vitamin D3 1 tab PO BID 10/23/16 02/08/17 [Calcium 600-Vit D3 200 Tablet] Ipratropium [place] [Atrovent Hfa] 2 puff INHALATION RT-QID PRN 10/23/16 Meclizine [Antivert] 25 mg PO Q8H PRN 10/23/16 02/08/17 Multivitamins, Thera [Multivitamin 1 tab PO DAILY 10/23/16 02/08/17 (formulary)] predniSONE 5 mg PO DAILY 10/23/16 02/08/17 Adalimumab [Humira Crohn's] 40 mg SQ FR 02/08/17 02/08/17 Cephalexin [Keflex] 1 cap PO HS 02/08/17 02/08/17 Cephalexin [Keflex] 2 cap PO DAILY 02/08/17 02/08/17 Diltiazem Cd [Cardizem CD] 360 mg PO DAILY 02/08/17 02/08/17 Omeprazole [PriLOSEC] 1 cap PO BID 02/08/17 02/08/17 Previous Rx's Medication Instructions Recorded ALPRAZolam [Xanax] 0.25 mg PO QID PRN #90 tab 10/27/16 Hydrocodone/Acetaminophen [[place] 2 tab PO Q12H #120 tab 10/27/16 10-325] Linagliptin [Tradjenta] 5 mg PO DAILY tablet 10/27/16 Magnesium Oxide [Mag-Ox] 400 mg PO BID #60 tab 12/05/16 Allergies Allergy/AdvReac Type Severity Reaction Status Date / Time No Known Allergies Allergy Verified 02/08/17 00:45 Review of Systems ROS Statement: Those systems with pertinent positive or pertinent negative responses have been documented in the HPI. ROS Other: All systems not noted in ROS Statement are negative. Constitutional: Denies: fever, chills, weakness ENT: Denies: throat pain Respiratory: Reports: cough, dyspnea Cardiovascular: Reports: dyspnea on exertion, orthopnea, edema. Denies: chest pain, palpitations, syncope Gastrointestinal: Denies: abdominal pain, vomiting, diarrhea Genitourinary: Denies: dysuria Musculoskeletal: Denies: back pain Skin: Reports: other (Chronic hidradenitis) Neurological: Denies: headache, weakness, numbness Past Medical History Past Medical History: Atrial Fibrillation, Asthma, Cancer, Diabetes Mellitus, Eye Disorder, GERD/Reflux, GI Bleed, Hearing Disorder / Deafness, Pneumonia, Renal Disease, Respiratory Disorder, Skin Disorder Additional Past Medical History / Comment(s): renal failure, lung CA, cardiac arrythmia, ulcer,pt has hydradenitis on b/l legs, thighs weep and bandages them daily, left leg tib/\fib fx 08/12/16. was in [facility] for rehab, went home. History of Any Multi-Drug Resistant Organisms: None Reported Past Surgical History: Appendectomy, Cholecystectomy, Orthopedic Surgery Additional Past Surgical History / Comment(s): lower and middle lobe of right lung removed due to cancer, lap band, UVP3, cyst removal off hip, surgery for perforated duodenal ulcer Past Anesthesia/Blood Transfusion Reactions: No Reported Reaction Past Psychological History: Depression Smoking Status: Former smoker Past Alcohol Use History: None Reported Additional Past Alcohol Use History / Comment(s): Patient was a smoker of 2-1/2 3 packs per day for 47 years, QUIT 4-5 YEARS AGO. He denies any medical marijuana, marijuana, street drug or alcohol use. Patient CURRENTLY AT [facility]. He has been on disability since 1990. THRU HIS WORK sustained lead poisoning there in 1971. 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 Past Drug Use History: None Reported - Past Family History Father Family Medical History: Cancer, Diabetes Mellitus, Liver Disease Mother Family Medical History: Cancer, Thyroid Disorder General Exam Limitations: no limitations General appearance: alert, in no apparent distress, obese Head exam: Present: atraumatic, normocephalic Eye exam: Present: normal appearance ENT exam: Present: normal oropharynx Respiratory exam: Present: wheezes, rales (Bilateral bases). Absent: respiratory distress, rhonchi, stridor, accessory muscle use, decreased breath sounds, prolonged expiratory Cardiovascular Exam: Present: regular rate, irregular rhythm, normal heart sounds. Absent: bradycardia, tachycardia, systolic murmur, diastolic murmur, rubs, gallop GI/Abdominal exam: Present: soft. Absent: distended, tenderness, guarding, rebound Extremities exam: Present: normal inspection, pedal edema. Absent: calf tenderness Back exam: Absent: CVA tenderness (R), CVA tenderness (L) Neurological exam: Present: alert Skin exam: Present: warm, dry, other (Patient has a number of tracts that are draining purulent drainage, however there is no significant erythema. Patient and both state that the hidradenitis seems to have shown some improvement from his usual.) Course Vital Signs 02/08/17 02/08/17 02/08/17 00:35 01:10 01:19 Temperature 99.6 F Pulse Rate 82 85 79 Respiratory 32 H Rate Blood Pressure 127/75 O2 Sat by Pulse 96 Oximetry 02/08/17 02/08/17 02/08/17 01:25 01:32 02:13 Temperature Pulse Rate 86 81 Respiratory 22 24 24 Rate Blood Pressure 113/60 108/51 O2 Sat by Pulse 96 96 Oximetry 02/08/17 02/08/17 02/08/17 03:21 04:06 05:18 Temperature 98.0 F 99.0 F Pulse Rate 85 80 89 Respiratory 16 20 22 Rate Blood Pressure 129/86 124/75 131/79 O2 Sat by Pulse 96 95 93 L Oximetry Medical Decision Making - Medical Decision Making Patient is 58-year-old man who presents with dyspnea and appearing to have worsening of his congestive heart failure. Patient given additional diuretic, nitrates, morphine. In addition he has leukocytosis and an elevated d-dimer. Patient given dose of Lovenox and as his creatinine is elevated and not able to have computed tomography scan will have VQ scan in the a.m. Suspect that both of these results the leukocytosis and elevated d-dimer related more to the patient's chronic hidradenitis. Patient covered against possibility of pneumonia with dose of antibiotics here, though he is not having fever and his lactic acid negative. Case discussed with Dr. Flores who will admit the patient for further diuresis and pending results of his VQ scan - Lab Data Result diagrams: 02/08/17 00:35 02/08/17 00:35 Lab Results 02/08/17 02/08/17 02/08/17 Range/Units 00:35 00:35 00:35 WBC 23.4 H (3.8-10.6) k/uL RBC 4.11 L (4.30-5.90) m/uL Hgb 10.1 L (13.0-17.5) gm/dL Hct 34.3 L (39.0-53.0) % MCV 83.5 (80.0-100.0) fL MCH 24.5 L (25.0-35.0) pg MCHC 29.4 L (31.0-37.0) g/dL RDW 18.8 H (11.5-15.5) % Plt Count 427 (150-450) k/uL Neutrophils % 86 % Lymphocytes % 6 % Monocytes % 6 % Eosinophils % 1 % Basophils % 0 % Neutrophils # 20.2 H (1.3-7.7) k/uL Lymphocytes # 1.3 (1.0-4.8) k/uL Monocytes # 1.3 H (0-1.0) k/uL Eosinophils # 0.1 (0-0.7) k/uL Basophils # 0.1 (0-0.2) k/uL Hypochromasia Marked Anisocytosis Slight Microcytosis Slight PT 10.5 (9.0-12.0) sec INR 1.0 (<1.1) APTT 25.5 (22.0-30.0) sec D-Dimer 6.02 H (<0.60) mg/L FEU Sodium 137 (137-145) mmol/L Potassium 5.1 (3.5-5.1) mmol/L Chloride 97 L (98-107) mmol/L Carbon Dioxide 28 (22-30) mmol/L Anion Gap 12 mmol/L BUN 33 H (9-20) mg/dL Creatinine 1.80 H (0.66-1.25) mg/dL Est GFR (MDRD) Af Amer 46 (>60 ml/min/1.73 sqM) Est GFR (MDRD) Non-Af 38 (>60 ml/min/1.73 sqM) Glucose 129 H (74-99) mg/dL Plasma Lactic Acid Jose Raul (0.7-2.0) mmol/L Calcium 8.3 L (8.4-10.2) mg/dL Magnesium 1.4 L (1.6-2.3) mg/dL Total Bilirubin 0.5 (0.2-1.3) mg/dL AST 26 (17-59) U/L ALT 30 (21-72) U/L Alkaline Phosphatase 101 (38-126) U/L Troponin I (0.000-0.034) ng/mL NT-Pro-B Natriuret Pep pg/mL Total Protein 8.1 (6.3-8.2) g/dL Albumin 3.3 L (3.5-5.0) g/dL Influenza Type A RNA (Not Detectd) Influenza Type B (PCR) (Not Detectd) 02/08/17 02/08/17 02/08/17 Range/Units 00:35 00:35 00:35 WBC (3.8-10.6) k/uL RBC (4.30-5.90) m/uL Hgb (13.0-17.5) gm/dL Hct (39.0-53.0) % MCV (80.0-100.0) fL MCH (25.0-35.0) pg MCHC (31.0-37.0) g/dL RDW (11.5-15.5) % Plt Count (150-450) k/uL Neutrophils % % Lymphocytes % % Monocytes % % Eosinophils % % Basophils % % Neutrophils # (1.3-7.7) k/uL Lymphocytes # (1.0-4.8) k/uL Monocytes # (0-1.0) k/uL Eosinophils # (0-0.7) k/uL Basophils # (0-0.2) k/uL Hypochromasia Anisocytosis Microcytosis PT (9.0-12.0) sec INR (<1.1) APTT (22.0-30.0) sec D-Dimer (<0.60) mg/L FEU Sodium (137-145) mmol/L Potassium (3.5-5.1) mmol/L Chloride (98-107) mmol/L Carbon Dioxide (22-30) mmol/L Anion Gap mmol/L BUN (9-20) mg/dL Creatinine (0.66-1.25) mg/dL Est GFR (MDRD) Af Amer (>60 ml/min/1.73 sqM) Est GFR (MDRD) Non-Af (>60 ml/min/1.73 sqM) Glucose (74-99) mg/dL Plasma Lactic Acid Jose Raul 1.1 (0.7-2.0) mmol/L Calcium (8.4-10.2) mg/dL Magnesium (1.6-2.3) mg/dL Total Bilirubin (0.2-1.3) mg/dL AST (17-59) U/L ALT (21-72) U/L Alkaline Phosphatase (38-126) U/L Troponin I <0.012 (0.000-0.034) ng/mL NT-Pro-B Natriuret Pep 21851 pg/mL Total Protein (6.3-8.2) g/dL Albumin (3.5-5.0) g/dL Influenza Type A RNA (Not Detectd) Influenza Type B (PCR) (Not Detectd) 02/08/17 Range/Units 03:13 WBC (3.8-10.6) k/uL RBC (4.30-5.90) m/uL Hgb (13.0-17.5) gm/dL Hct (39.0-53.0) % MCV (80.0-100.0) fL MCH (25.0-35.0) pg MCHC (31.0-37.0) g/dL RDW (11.5-15.5) % Plt Count (150-450) k/uL Neutrophils % % Lymphocytes % % Monocytes % % Eosinophils % % Basophils % % Neutrophils # (1.3-7.7) k/uL Lymphocytes # (1.0-4.8) k/uL Monocytes # (0-1.0) k/uL Eosinophils # (0-0.7) k/uL Basophils # (0-0.2) k/uL Hypochromasia Anisocytosis Microcytosis PT (9.0-12.0) sec INR (<1.1) APTT (22.0-30.0) sec D-Dimer (<0.60) mg/L FEU Sodium (137-145) mmol/L Potassium (3.5-5.1) mmol/L Chloride (98-107) mmol/L Carbon Dioxide (22-30) mmol/L Anion Gap mmol/L BUN (9-20) mg/dL Creatinine (0.66-1.25) mg/dL Est GFR (MDRD) Af Amer (>60 ml/min/1.73 sqM) Est GFR (MDRD) Non-Af (>60 ml/min/1.73 sqM) Glucose (74-99) mg/dL Plasma Lactic Acid Jose Raul (0.7-2.0) mmol/L Calcium (8.4-10.2) mg/dL Magnesium (1.6-2.3) mg/dL Total Bilirubin (0.2-1.3) mg/dL AST (17-59) U/L ALT (21-72) U/L Alkaline Phosphatase (38-126) U/L Troponin I (0.000-0.034) ng/mL NT-Pro-B Natriuret Pep pg/mL Total Protein (6.3-8.2) g/dL Albumin (3.5-5.0) g/dL Influenza Type A RNA Not Detected (Not Detectd) Influenza Type B (PCR) Not Detected (Not Detectd) - EKG Data -: EKG Interpreted by Mo EKG shows normal: intervals (Normal), QRS complexes (Normal), ST-T waves (Normal ) Rate: normal (84 bpm) 02/08/17 06:54 EKG shows atrial fibrillation with a rate approximately 84 bpm. Previous EKG does demonstrate atrial fibrillation. Disposition Clinical Impression: Congestive heart failure, Elevated d-dimer Disposition: ADMITTED IP TO THIS [facility] Condition: Fair
[2017-02-08] MEDS: HYDROcodone/APAP 10-325MG 1 EACH TAB PO SCH ×2 (06:12→17:13)
[2017-02-08] MEDS: PANTOPRAZOLE 40 MG TABLET PO SCH ×2 (06:52→17:13)
[2017-02-08] MEDS: ALBUTEROL NEBULIZED 2.5 MG/3 ML INHALATION SCH ×4 (08:17→21:29)
[2017-02-08] MEDS ORDERED: Magnesium Replacement Protocol 1 EACH MISC MISCELLANE PRN (08:22)
[2017-02-08] MEDS ORDERED: predniSONE 5 MG TAB PO SCH (09:00)
[2017-02-08] MEDS ORDERED: ERGOCALCIFEROL 50,000 UNIT CAP PO SCH (09:00)
[2017-02-08] MEDS ORDERED: ENOXAPARIN 150 MG/ML SYRINGE SQ SCH (09:00)
--- NOTE | 2017-02-08 09:11 | NM ---
EXAMINATION TYPE: NM pul vent and perfuse DATE OF EXAM: 02/08/2017 9:01 AM COMPARISON: 07/01/2016, chest x-ray 02/08/2017 HISTORY: Shortness of breath TECHNIQUE: Utilizing inhalation of 71.5 mCi Tc 99m DTPA aerosol and intravenous injection of 5.4 mCi of Tc 99m MAA, ventilation and perfusion images are acquired post injection in multiple projections. FINDINGS: Heterogeneous uptake is seen on ventilation images likely secondary to chronic obstructive pulmonary disease. There is a triple match regard to the right lower lobe. Matched ventilation/perfusion defect corresponding to the chest x-ray abnormality. IMPRESSION: 1. Intermediate probability for pulmonary embolism.
[2017-02-08] MEDS: CEPHALEXIN 500 MG CAP PO SCH ×2 (09:44→22:09)
[2017-02-08] MEDS: MAGNESIUM SULFATE-D5W PMX 1 GM in DEXTROSE/WATER 1 100ML.BAG IVPB SCH ×3 (09:44→17:13)
[2017-02-08] MEDS: DILTIAZEM CD 180 MG CAP.ER.24H PO SCH (09:45)
[2017-02-08] MEDS: MULTIVITAMINS, THERA 1 EACH TAB PO SCH (09:46)
[2017-02-08] MEDS: CALCIUM CARB-VIT D 500MG-200UN 1 EACH TAB PO SCH ×2 (09:46→22:09)
[2017-02-08] MEDS: CITALOPRAM HYDROBROMIDE 20 MG TAB PO SCH (09:46)
[2017-02-08] MEDS: MAGNESIUM OXIDE 400 MG TAB PO SCH ×2 (09:46→22:08)
[2017-02-08] MEDS: NITROGLYCERIN OINT 1 INCH/GM PACKET TOPICAL SCH ×4 (09:47→22:10)
[2017-02-08] MEDS: LINAGLIPTIN 5 MG TABLET PO SCH (09:48)
[2017-02-08] MEDS ORDERED: FUROSEMIDE 10 MG/ML 4 ML VIAL IV SCH (10:00)
--- NOTE | 2017-02-08 11:39 | P.CNPUL ---
History of Present Illness Consult date: 02/08/17 Requesting physician: Joel Flores Jr Reason for consult: dyspnea Chief complaint: Shortness of breath History of present illness: This is a 66-year-old white male with history of multiple medical problems including previous lobectomy for non-small cell lung cancer, underlying COPD, history of intermittent episodes of congestive heart failure, diastolic dysfunction, history of depression, paroxysmal atrial fibrillation, history of GERD, hidradenitis, patient presented to the ER yesterday with 4 days history of increased shortness of breath, cough which is productive with greenish phlegm , no fever no chills no hemoptysis no chest pain. Chest x-ray upon presentation showed congestive heart failure, chronic changes in the right lower lobe related to previous lobectomy, difficult to rule out underlying pneumonia, but felt to be less likely. His proBNP level was significantly elevated. He had leukocytosis with WBC count of 23.4. D-dimer was 6.02. Renal profile was abnormal, hence a VQ scan was done, and it was intermediate. Based on the clinical history, this is clearly not a presentation of thromboembolic disease, and my index of suspicion for thromboembolic disease is 0. Patient was placed on diuretics since admission antibiotics and bronchodilators, he was placed back on his usual dose of prednisone which is 5 mg daily, however I switched that to IV Solu-Medrol. Review of Systems 14 point review of systems were obtained please refer to pertinent positives and negatives as per HPI Past Medical History Past Medical History: Atrial Fibrillation, Asthma, Cancer, Diabetes Mellitus, Eye Disorder, GERD/Reflux, GI Bleed, Hearing Disorder / Deafness, Pneumonia, Renal Disease, Respiratory Disorder, Skin Disorder Additional Past Medical History / Comment(s): renal failure, lung CA, cardiac arrythmia, ulcer,pt has hydradenitis on b/l legs, thighs weep and bandages them daily, left leg tib/\fib fx 08/12/16. was in [facility] for rehab, went home. History of Any Multi-Drug Resistant Organisms: None Reported Past Surgical History: Appendectomy, Cholecystectomy, Orthopedic Surgery Additional Past Surgical History / Comment(s): lower and middle lobe of right lung removed due to cancer, lap band, UVP3, cyst removal off hip, surgery for perforated duodenal ulcer Past Anesthesia/Blood Transfusion Reactions: No Reported Reaction Past Psychological History: Depression Smoking Status: Former smoker Past Alcohol Use History: None Reported Additional Past Alcohol Use History / Comment(s): Patient was a smoker of 2-1/2 3 packs per day for 47 years, QUIT 4-5 YEARS AGO. He denies any medical marijuana, marijuana, street drug or alcohol use. Patient CURRENTLY AT [facility]. He has been on disability since 1990. THRU HIS WORK sustained lead poisoning there in 1971. 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 Past Drug Use History: None Reported - Past Family History Father Family Medical History: Cancer, Diabetes Mellitus, Liver Disease Mother Family Medical History: Cancer, Thyroid Disorder Medications and Allergies Home Medications Medication Instructions Recorded Confirmed Type Calcitriol [Rocaltrol] 0.25 mcg PO SUTH 06/06/16 02/08/17 History Citalopram Hydrobromide [CeleXA] 20 mg PO DAILY 08/13/16 02/08/17 History Ergocalciferol [Vitamin D2 50,000 unit PO [id number] 08/29/16 02/08/17 History (DRISDOL)] Furosemide [Lasix] 80 mg PO BID 08/29/16 02/08/17 History Albuterol Nebulized [Ventolin 2.5 mg INHALATION RT-QID 10/23/16 02/08/17 History Nebulized] Calcium Carbonate/Vitamin D3 1 tab PO BID 10/23/16 02/08/17 History [Calcium 600-Vit D3 200 Tablet] Ipratropium [place] [Atrovent Hfa] 2 puff INHALATION RT-QID PRN 10/23/16 History Meclizine [Antivert] 25 mg PO Q8H PRN 10/23/16 02/08/17 History Multivitamins, Thera [Multivitamin 1 tab PO DAILY 10/23/16 02/08/17 History (formulary)] predniSONE 5 mg PO DAILY 10/23/16 02/08/17 History Adalimumab [Humira Crohn's] 40 mg SQ FR 02/08/17 02/08/17 History Albuterol Inhaler [Ventolin Hfa 1 - 2 puff INHALATION RT-Q6H PRN 02/08/17 History Inhaler] Cephalexin [Keflex] 1,000 mg PO DAILY 02/08/17 02/08/17 History Cephalexin [Keflex] 500 mg PO HS 02/08/17 02/08/17 History Dakin's Solution 10 oz TOPICAL DIRECTED 02/08/17 02/08/17 History Diltiazem HCl [Cardizem [place]] 360 mg PO DAILY 02/08/17 02/08/17 History Diphenoxylate HCl/Atropine 1 tab PO TID PRN 02/08/17 02/08/17 History [Lomotil] Fluticasone/Salmeterol [Advair 2 puff INHALATION RT-BID 02/08/17 02/08/17 History 100-50 Diskus] HYDROcodone/APAP 10-325MG [[place] 1 tab PO QID PRN 02/08/17 02/08/17 History 10-325] Omeprazole [PriLOSEC] 20 mg PO BID 02/08/17 02/08/17 History Sildenafil Citrate [Viagra] 100 mg PO DAILY PRN 02/08/17 02/08/17 History Allergies Allergy/AdvReac Type Severity Reaction Status Date / Time clindamycin AdvReac Diarrhea Verified 02/08/17 08:21 Physical Exam Vitals: Vital Signs Temp Pulse Pulse Pulse Resp BP BP 02/08/17 08:00 79 79 20 02/08/17 07:50 98.5 F 79 79 20 108/66 02/08/17 05:39 97.1 F L 83 20 113/69 02/08/17 05:18 99.0 F 89 22 131/79 Pulse Ox 02/08/17 08:00 02/08/17 07:50 96 02/08/17 05:39 96 02/08/17 05:18 93 L Intake and Output 02/07/17 02/08/17 02/08/17 22:59 06:59 14:59 Output Total 250 Balance -250 Output: Urine 250 Other: Voiding Method Urinal Urinal Weight 149 kg 154.5 kg Patient Weight 02/09/17 06:59 Weight 154.5 kg Physical Exam: Revealed a 66-year-old obese, in no distress. HEENT:[Neck is supple.] [No neck masses.] [No thyromegaly.] [No JVD.] Chest: [Crackles at the bases, some wheezing on forced expiratory maneuver..] Cardiac Exam: [Normal S1 and S2, no S3 gallop, no murmur.] Abdomen: [Soft, nontender, no megaly, no rebound, no guarding, normal bowel sounds.] Extremities: [No clubbing, 3+ bipedal edema, no cyanosis.] Neurological Exam: [No focal neurologic deficit.] Results - Laboratory Findings CBC and BMP: 02/08/17 00:35 02/08/17 00:35 PT/INR, D-dimer PT 10.5 sec (9.0-12.0) 02/08/17 00:35 INR 1.0 (<1.1) 02/08/17 00:35 D-Dimer 6.02 mg/L FEU (<0.60) H 02/08/17 00:35 - Diagnostic Findings Chest x-ray: image reviewed (Chest x-ray is mostly consistent with congestive heart failure and chronic changes in the right lower lobe.) Assessment and Plan Plan: Impression: 1 Shortness of breath secondary to congestive heart failure, suspect to be diastolic in nature, underlying COPD, and chronic right lower lobe atelectasis with previous lobectomy related to previous non-small cell lung cancer. 2 multiple comorbidities including COPD, paroxysmal atrial fibrillation, lungs CTA, type 2 diabetes, GERD, previous episode of GI bleeding, history of left lower extremity tibial fracture last year, chronic hidradenitis, morbid obesity Recommendation: I agree with the present treatment plan including diuretics, Lasix at 40 mg IV push every 8 hours, hence very to monitor his renal profile closely. Continue antibiotics empirically although my index of suspicion for pneumonia is rather low but clearly the patient has symptoms of tracheobronchitis. Continue bronchodilators and cardiac meds continue Lovenox, and we will continue to follow closely. Time with Patient: Greater than 30
[2017-02-08] MEDS: methylPREDNISolone SOD SUCCI 40 MG/ML 1 ML VIAL IV SCH ×2 (13:09→22:10)
--- NOTE | 2017-02-08 15:05 | US ---
EXAMINATION TYPE: US venous doppler duplex LE DATE OF EXAM: 02/08/2017 2:52 PM COMPARISON: NONE CLINICAL HISTORY: swelling, dvt?. Left leg pain. SIDE PERFORMED: Bilateral VESSELS IMAGED: External Iliac Vein (EIV) Common Femoral Vein Deep Femoral Vein Greater Saphenous Vein * Femoral Vein Popliteal Vein Small Saphenous Vein * Proximal Calf Veins (* superficial vessels) Findings: Multiple hypoechoic nodules seen in right groin, largest measuring = 2.7 x 1.1 cm. Subopti mal visualization of bilateral EIV and CFV due to shadowing from artery. Right Leg: Appears negative for DVT Left Leg: Appears negative for DVT IMPRESSION: 1. Suboptimal visualization of the external iliac and common femoral veins due to shadowing from the arterial system. Remaining portions of the deep venous system demonstrate no diagnostic evidence of D VT. Correlate clinically. 2. Right inguinal lymphadenopathy
--- NOTE | 2017-02-08 15:51 | P.HPIM ---
History of Present Illness H&P Date: 02/08/17 Chief Complaint: Shortness of breath Patient is a 66-year-old male, patient of Dr. 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 Patient presented to the emergency department with complaints of increased shortness of breath, productive cough, and increased leg edema. No history of fevers, chills, or chest pain. Chest x-ray suspicious for pulmonary edema with possible pneumonia. EKG on admission with evidence of atrial fibrillation controlled ventricular rate. WBC 23.4, hemoglobin 10.1, d-dimer elevated at 6.02, BUN 33, creatinine 1.8, magnesium 1.4 , troponin less than 0.0122, pro BNP 11,700, influenza type A and B negative. VQ scan with intermediate probability for pulmonary embolism. Bilateral ultrasound venous Doppler study of lower extremities negative for DVT. Patient was admitted to the selective care unit with consults to Dr. Adame for pulmonary service and cardiology service. Past Medical History Past Medical History: Atrial Fibrillation, Asthma, Cancer, Diabetes Mellitus, Eye Disorder, GERD/Reflux, GI Bleed, Hearing Disorder / Deafness, Pneumonia, Renal Disease, Respiratory Disorder, Skin Disorder Additional Past Medical History / Comment(s): renal failure, lung CA, cardiac arrythmia, ulcer,pt has hydradenitis on b/l legs, thighs weep and bandages them daily, left leg tib/\fib fx 08/12/16. was in [facility] for rehab, went home. History of Any Multi-Drug Resistant Organisms: None Reported Past Surgical History: Appendectomy, Cholecystectomy, Orthopedic Surgery Additional Past Surgical History / Comment(s): lower and middle lobe of right lung removed due to cancer, lap band, UVP3, cyst removal off hip, surgery for perforated duodenal ulcer Past Anesthesia/Blood Transfusion Reactions: No Reported Reaction Past Psychological History: Depression Smoking Status: Former smoker Past Alcohol Use History: None Reported Additional Past Alcohol Use History / Comment(s): Patient was a smoker of 2-1/2 3 packs per day for 47 years, QUIT 4-5 YEARS AGO. He denies any medical marijuana, marijuana, street drug or alcohol use. Patient CURRENTLY AT [facility]. He has been on disability since 1990. THRU HIS WORK sustained lead poisoning there in 1971. 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 Past Drug Use History: None Reported - Past Family History Father Family Medical History: Cancer, Diabetes Mellitus, Liver Disease Mother Family Medical History: Cancer, Thyroid Disorder Medications and Allergies Home Medications Medication Instructions Recorded Confirmed Type Calcitriol [Rocaltrol] 0.25 mcg PO SUTH 06/06/16 02/08/17 History Citalopram Hydrobromide [CeleXA] 20 mg PO DAILY 08/13/16 02/08/17 History Ergocalciferol [Vitamin D2 50,000 unit PO [id number] 08/29/16 02/08/17 History (DRISDOL)] Furosemide [Lasix] 80 mg PO BID 08/29/16 02/08/17 History Albuterol Nebulized [Ventolin 2.5 mg INHALATION RT-QID 10/23/16 02/08/17 History Nebulized] Calcium Carbonate/Vitamin D3 1 tab PO BID 10/23/16 02/08/17 History [Calcium 600-Vit D3 200 Tablet] Ipratropium [place] [Atrovent Hfa] 2 puff INHALATION RT-QID PRN 10/23/16 History Meclizine [Antivert] 25 mg PO Q8H PRN 10/23/16 02/08/17 History Multivitamins, Thera [Multivitamin 1 tab PO DAILY 10/23/16 02/08/17 History (formulary)] predniSONE 5 mg PO DAILY 10/23/16 02/08/17 History Adalimumab [Humira Crohn's] 40 mg SQ FR 02/08/17 02/08/17 History Albuterol Inhaler [Ventolin Hfa 1 - 2 puff INHALATION RT-Q6H PRN 02/08/17 History Inhaler] Cephalexin [Keflex] 1,000 mg PO DAILY 02/08/17 02/08/17 History Cephalexin [Keflex] 500 mg PO HS 02/08/17 02/08/17 History Dakin's Solution 10 oz TOPICAL DIRECTED 02/08/17 02/08/17 History Diltiazem HCl [Cardizem LA] 360 mg PO DAILY 02/08/17 02/08/17 History Diphenoxylate HCl/Atropine 1 tab PO TID PRN 02/08/17 02/08/17 History [Lomotil] Fluticasone/Salmeterol [Advair 2 puff INHALATION RT-BID 02/08/17 02/08/17 History 100-50 Diskus] HYDROcodone/APAP 10-325MG [[place] 1 tab PO QID PRN 02/08/17 02/08/17 History 10-325] Omeprazole [PriLOSEC] 20 mg PO BID 02/08/17 02/08/17 History Sildenafil Citrate [Viagra] 100 mg PO DAILY PRN 02/08/17 02/08/17 History Allergies Allergy/AdvReac Type Severity Reaction Status Date / Time clindamycin AdvReac Diarrhea Verified 02/08/17 08:21 Physical Exam Vitals: Vital Signs Temp Pulse Pulse Pulse Resp BP BP 02/08/17 12:00 79 22 02/08/17 11:30 96.8 F L 79 22 112/70 02/08/17 08:00 79 79 20 02/08/17 07:50 98.5 F 79 79 20 108/66 02/08/17 05:39 97.1 F L 83 20 113/69 02/08/17 05:18 99.0 F 89 22 131/79 Pulse Ox 02/08/17 12:00 02/08/17 11:30 99 02/08/17 08:00 02/08/17 07:50 96 02/08/17 05:39 96 02/08/17 05:18 93 L Intake and Output 02/08/17 02/08/17 02/08/17 06:59 14:59 22:59 Output Total 250 Balance -250 Output: Urine 250 Other: Voiding Method Urinal Urinal Weight 149 kg 154.5 kg Patient Weight 02/09/17 06:59 Weight 154.5 kg GENERAL: Pt awake and alert, well-appearing, well-nourished, and in no acute distress. HEAD: Atraumatic, normocephalic. EYES: Pupils equal, round, and reactive to light. Sclera anicteric, conjunctiva are normal. ENT: Moist mucous membranes. NECK: Supple without lymphadenopathy or JVD. LUNGS: Breath sounds with crackles and expiratory wheezing. HEART: Heart S1, S2, no S3 or S4. Irregularly irregular. No murmurs, rubs or gallops. ABDOMEN: Soft, obese, nontender, nondistended, normoactive bowel sounds. No guarding, no rebound. No masses or organomegaly appreciated. EXTREMITIES: Palpable peripheral pulses. 3+ edema to bilateral lower extremities. No calf tenderness. Right foot cooler than right left foot. NEUROLOGICAL: Pt oriented x 3. Cranial nerves II through XII grossly intact. Strength and sensation grossly intact. PSYCH: Normal mood, normal affect. SKIN: Warm, dry, intact. Normal turgor. Results CBC & Chem 7: 02/08/17 00:35 02/08/17 00:35 Chest x-ray: report reviewed Thrombosis Risk Factor Assmnt - DVT/VTE Prophylaxis DVT/VTE Prophylaxis: Pharmacologic Prophylaxis ordered, Mechanical Prophylaxis ordered - Choose All That Apply Any of the Below Risk Factors Present?: Yes Each Factor Represents 1 point: Obesity (BMI >25), Swollen legs (current) Each Risk Factor Represents 2 Points: Age 61-74 years Each Risk Factor Represents 3 Points: History of DVT/PE Thrombosis Risk Factor Assessment Total Risk Factor Score: 7 Thrombosis Risk Factor Assessment Level: High Risk Assessment and Plan Plan: Impression and plan: 1. Progressive shortness of breath suspect multifactorial: Acute on chronic diastolic heart failure, possible pneumonia, exacerbation of COPD, chronic right lower lobe atelectasis with previous lobectomy related to non-small cell lung cancer. Cardiology and pulmonary service has been consulted, recommendations pending. Continue nebulized updraft treatments, IV Lasix. 2. Paroxysmal atrial fibrillation not currently on outpatient anticoagulation secondary to severe hydradenitis. Patient has been started on Lovenox subcu. Continue Cardizem. 3. Acute on chronic diastolic heart failure with last ejection fraction 45-50% . Continue IV Lasix. 4. Hydradenitis support team, chronic. Patient follows with Dr. Hardy in the outpatient setting and was recently started on Humira with improvement. Consult Dr. Hardy for guidance on anticoagulation and Humira. 5. Hypertension. 6. Diabetes mellitus type 2. Continue Tradjenta. Continue Accu-Cheks before meals at bedtime with Humalog sliding scale. Continue consistent carbohydrate diet. 7. History of squamous cell lung cancer with right lower and middle lobectomy. 8. Acute on chronic renal failure, stage III. 9. Anemia of chronic kidney disease. 10. Elevated d-dimer, present on admission. VQ scan with evidence of intermediate probability for PE. Venous Doppler studies negative for DVT. Dr. Adame has been consulted for need for anticoagulation. 11. Leukocytosis, present on arrival. WBC 23.4. 12. Hypomagnesemia. Replace per protocol. Continue magnesium by mouth. 13. Anemia of chronic disease. Patient follows with Dr. Mireles and has received Procrit injections in past. Continue to monitor patient. Home medications have been reviewed and resumed as appropriate. Continue to follow with pulmonology, cardiology, and infectious disease service. Continue supportive treatment and pain management. Repeat blood work in a.m. The above impression and plan have been discussed and directed by Dr. Flores. Tino MEDEL acting as scribe for Dr. Flores.
--- NOTE | 2017-02-08 17:10 | P.CRDCN ---
History of Present Illness Consult date: 02/08/17 Consult reason: shortness of breath History of present illness: 66-year-old gentleman with history of atrial fibrillation diabetes renal insufficiency cardiomyopathy is admitted to hospital with worsening weight gain leg edema and shortness of breath. Was found to be in acute onset worsening of chronic systolic heart failure. BNP is elevated at 11,700. A VQ scan showed indeterminate probability. Troponins have been negative. He has renal insufficiency with elevated BUN/creatinine. He is being treated with intravenous Lasix at 40 mg every 8 hours with improvement in his symptoms. Patient was not an anticoagulant for atrial fibrillation because of hydradenitis. However he wants to try an anticoagulant on this admission and see how he tolerates it. His echocardiogram in the past showed an ejection fraction of 45-50%. We'll treat the patient with IV diuretics anticoagulants optimal control of heart rate beta blockers. I will give kelvin inhibitors as tolerated. Review of Systems Constitutional: Denies chills. Denies fever. Eyes: Denies blurred vision. Denies pain. Ears, nose, mouth and throat: Denies headache. Denies sore throat. Cardiovascular: Denies chest pain.has shortness of breath. Respiratory: Denies cough. Gastrointestinal: Denies abdominal pain. Denies diarrhea. Denies nausea. Denies vomiting. Musculoskeletal: Denies myalgias. Has joint pains Integumentary: Denies pruritus.has rash. Neurological: Denies numbness. Denies weakness. Psychiatric: Denies anxiety. Denies depression. Endocrine: Denies fatigue. Denies weight change. Genitourinary: Denies burning, hematuria, frequency of urination. Hematological: No anemia or excess bleeding. Past Medical History Past Medical History: Atrial Fibrillation, Asthma, Cancer, Diabetes Mellitus, Eye Disorder, GERD/Reflux, GI Bleed, Hearing Disorder / Deafness, Pneumonia, Renal Disease, Respiratory Disorder, Skin Disorder Additional Past Medical History / Comment(s): renal failure, lung CA, cardiac arrythmia, ulcer,pt has hydradenitis on b/l legs, thighs weep and bandages them daily, left leg tib/\fib fx 08/12/16. was in [facility] for rehab, went home. History of Any Multi-Drug Resistant Organisms: None Reported Past Surgical History: Appendectomy, Cholecystectomy, Orthopedic Surgery Additional Past Surgical History / Comment(s): lower and middle lobe of right lung removed due to cancer, lap band, UVP3, cyst removal off hip, surgery for perforated duodenal ulcer Past Anesthesia/Blood Transfusion Reactions: No Reported Reaction Past Psychological History: Depression Smoking Status: Former smoker Past Alcohol Use History: None Reported Additional Past Alcohol Use History / Comment(s): Patient was a smoker of 2-1/2 3 packs per day for 47 years, QUIT 4-5 YEARS AGO. He denies any medical marijuana, marijuana, street drug or alcohol use. Patient CURRENTLY AT [facility]. He has been on disability since 1990. THRU HIS WORK sustained lead poisoning there in 1971. 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 Past Drug Use History: None Reported - Past Family History Father Family Medical History: Cancer, Diabetes Mellitus, Liver Disease Mother Family Medical History: Cancer, Thyroid Disorder Medications and Allergies Home Medications Medication Instructions Recorded Confirmed Type Calcitriol [Rocaltrol] 0.25 mcg PO SUTH 06/06/16 02/08/17 History Citalopram Hydrobromide [CeleXA] 20 mg PO DAILY 08/13/16 02/08/17 History Ergocalciferol [Vitamin D2 50,000 unit PO [id number] 08/29/16 02/08/17 History (DRISDOL)] Furosemide [Lasix] 80 mg PO BID 08/29/16 02/08/17 History Albuterol Nebulized [Ventolin 2.5 mg INHALATION RT-QID 10/23/16 02/08/17 History Nebulized] Calcium Carbonate/Vitamin D3 1 tab PO BID 10/23/16 02/08/17 History [Calcium 600-Vit D3 200 Tablet] Ipratropium [place] [Atrovent Hfa] 2 puff INHALATION RT-QID PRN 10/23/16 History Meclizine [Antivert] 25 mg PO Q8H PRN 10/23/16 02/08/17 History Multivitamins, Thera [Multivitamin 1 tab PO DAILY 10/23/16 02/08/17 History (formulary)] predniSONE 5 mg PO DAILY 10/23/16 02/08/17 History Adalimumab [Humira Crohn's] 40 mg SQ FR 02/08/17 02/08/17 History Albuterol Inhaler [Ventolin Hfa 1 - 2 puff INHALATION RT-Q6H PRN 02/08/17 History Inhaler] Cephalexin [Keflex] 1,000 mg PO DAILY 02/08/17 02/08/17 History Cephalexin [Keflex] 500 mg PO HS 02/08/17 02/08/17 History Dakin's Solution 10 oz TOPICAL DIRECTED 02/08/17 02/08/17 History Diltiazem HCl [Cardizem LA] 360 mg PO DAILY 02/08/17 02/08/17 History Diphenoxylate HCl/Atropine 1 tab PO TID PRN 02/08/17 02/08/17 History [Lomotil] Fluticasone/Salmeterol [Advair 2 puff INHALATION RT-BID 02/08/17 02/08/17 History 100-50 Diskus] HYDROcodone/APAP 10-325MG [[place] 1 tab PO QID PRN 02/08/17 02/08/17 History 10-325] Omeprazole [PriLOSEC] 20 mg PO BID 02/08/17 02/08/17 History Sildenafil Citrate [Viagra] 100 mg PO DAILY PRN 02/08/17 02/08/17 History Allergies Allergy/AdvReac Type Severity Reaction Status Date / Time clindamycin AdvReac Diarrhea Verified 02/08/17 08:21 Physical Exam Vitals: Vital Signs Temp Pulse Pulse Pulse Resp BP BP 02/08/17 16:13 77 02/08/17 16:03 76 02/08/17 12:00 79 22 02/08/17 11:30 96.8 F L 79 22 112/70 02/08/17 08:00 79 79 20 02/08/17 07:50 98.5 F 79 79 20 108/66 02/08/17 05:39 97.1 F L 83 20 113/69 02/08/17 05:18 99.0 F 89 22 131/79 Pulse Ox 02/08/17 16:13 02/08/17 16:03 02/08/17 12:00 02/08/17 11:30 99 02/08/17 08:00 02/08/17 07:50 96 02/08/17 05:39 96 02/08/17 05:18 93 L Intake and Output 02/08/17 02/08/17 02/08/17 06:59 14:59 22:59 Output Total 250 2000 Balance -250 -2000 Output: Urine 250 2000 Other: Voiding Method Urinal Urinal Weight 149 kg 154.5 kg Patient Weight 02/09/17 06:59 Weight 154.5 kg General: The patient is awake and alert, in no distress, and does not appear acutely ill. Skin: Skin is warm and dry and no rashes or lesions are noted. Eye: Pupils are equal, round and reactive to light, extra-ocular movements are intact; there is normal conjunctiva bilaterally. Ears, nose, mouth and throat: There are moist mucous membranes and no oral lesions. Neck: The neck is supple, there is no tenderness or JVD. Cardiovascular: Irregular systolic murmur at the left lower sternal border Respiratory: Lungs are clear to auscultation, respirations are non-labored, breath sounds are equal. Diminished air entry bilaterally Gastrointestinal: Soft, non-distended, non-tender abdomen without masses or organomegaly noted. There is no rebound or guarding present. Bowel sounds are unremarkable. Back: There is no tenderness to palpation in the midline. There is no obvious deformity. Musculoskeletal: Normal ROM, no tenderness, There is no pedal edema. There is no calf tenderness or swelling. Extremities: Bilateral moderate to severe leg edema Vascular: Femoral pulse is normal. Posterior tibial pulses are normal .Dorsalis pedis is palpable. Neurological: CN II-XII intact. There are no obvious motor or sensory deficits. Speech is normal. Psychiatric: Cooperative, appropriate mood & affect, normal judgment. Results 02/08/17 00:35 02/08/17 00:35 Cardiac Enzymes 02/08/17 02/08/17 Range/Units 09:15 15:34 Troponin I <0.012 <0.012 (0.000-0.034) ng/mL Current Medications Generic Name Dose Route Start Last Admin Trade Name Freq PRN Reason Stop Dose Admin Hydrocodone Bitart/Acetaminophen 2 each 02/08/17 06:00 02/08/17 06:12 [place] 10 PO 2 each Q12H MAXWELL Administration Albuterol Sulfate 2.5 mg 02/08/17 08:00 02/08/17 16:03 Ventolin Nebulized INHALATION 2.5 mg RT-QID MAXWELL Administration Alprazolam 0.25 mg 02/08/17 04:02 Xanax PO QID PRN Anxiety Apixaban 5 mg 02/08/17 21:00 Eliquis PO BID MAXWELL Calcitriol 0.25 mcg 02/09/17 09:00 Rocaltrol PO SuTh@0900 [facility] Calcium Carbonate 1 each 02/08/17 09:00 02/08/17 09:46 [place] 500+D PO 1 each BID MAXWELL Administration Cephalexin 500 mg 02/08/17 21:00 Keflex PO HS MAXWELL Cephalexin 1,000 mg 02/08/17 09:00 02/08/17 09:44 Keflex PO 1,000 mg DAILY MAXWELL Administration Citalopram Hydrobromide 20 mg 02/08/17 09:00 02/08/17 09:46 Celexa PO 20 mg DAILY MAXWELL Administration Diltiazem HCl 360 mg 02/08/17 09:00 02/08/17 09:45 Cardizem Cd PO 360 mg DAILY MAXWELL Administration Ergocalciferol 50,000 unit 02/08/17 09:00 02/08/17 09:48 Vitamin D2 PO 50,000 unit [id number] [facility] Administration Furosemide 60 mg 02/08/17 18:00 Lasix IV Q8H MAXWELL Ipratropium [place] 0.5 mg 02/08/17 04:02 Atrovent Nebulized INHALATION RT-QID PRN Shortness Of Breath Linagliptin 5 mg 02/08/17 09:00 02/08/17 09:48 Tradjenta PO 5 mg DAILY [facility] Administration Magnesium Oxide 400 mg 02/08/17 09:00 02/08/17 09:46 Mag-Ox PO 400 mg BID [facility] Administration Meclizine HCl 25 mg 02/08/17 04:02 Antivert PO Q8H PRN Vertigo Methylprednisolone Sodium Succinate 40 mg 02/08/17 11:00 02/08/17 13:09 Solu-Medrol IV 40 mg Q12HR MAXWELL Administration Miscellaneous Information 1 each 02/08/17 08:22 Magnesium Per Protocol MISCELLANE DAILY PRN Per Protocol Protocol Multivitamins 1 each 02/08/17 09:00 02/08/17 09:46 Theragran PO 1 each DAILY MAXWELL Administration Nitroglycerin 0.5 inch 02/08/17 09:00 02/08/17 13:04 Nitro-Bid Oint TOPICAL 0.5 inch QID MAXWELL Administration Pantoprazole Sodium 40 mg 02/08/17 07:30 02/08/17 06:52 Protonix PO 40 mg AC-BID MAXWELL Administration Sodium Chloride 10 ml 02/08/17 09:00 02/08/17 09:47 Saline Flush IV 10 ml BID MAXWELL Administration Intake and Output 02/08/17 02/08/17 02/08/17 06:59 14:59 22:59 Output Total 250 2000 Balance -250 -2000 Output: Urine 250 1999 Other: Voiding Method Urinal Urinal Weight 149 kg 154.5 kg Patient Weight 02/09/17 06:59 Weight 154.5 kg EKG Interpretations (text) Atrial fibrillation with nonspecific ST-T wave changes Assessment and Plan Plan: Acute exacerbation of chronic systolic heart failure Chronic atrial fibrillation Morbid obesity Abnormal VQ scan I'm going to treat the patient with intravenous diuretics optimal control of blood pressure I reviewed previous echoes and if necessary will perform an echocardiogram I will stop the Lovenox and start him on eliquis for atrial fibrillation patient's clinical presentation is an consistent with a diagnosis of pulmonary embolism. He seems to be clearly and congestive heart failure with leg edema pulmonary congestion. Further adjustments to therapies based on his response.
[2017-02-08] MEDS: FUROSEMIDE 10 MG/ML 4 ML VIAL IV SCH (17:14)
[2017-02-08 20:01] LABS: Glucose,Whole Blood 250 mg/dL (75-99)
[2017-02-08] MEDS: APIXABAN 5 MG TAB PO SCH (22:09)
[2017-02-08] MEDS: INSULIN LISPRO (humaLOG) 300 UNIT/3 ML VIAL SQ SCH (22:12)
--- NOTE | 2017-02-08 22:20 | P.CONS ---
History of Present Illness - Reason for Consult Consult date: 02/08/17 - Chief Complaint Progressive shortness of breath - History of Present Illness 66-year-old male who is well-known to the infectious disease service with as many hospitalizations as well as his hidradenitis. He's had a couple hospitalizations in the last several months that included atrial fibrillation with nonsustained V. tach. He has underlying cardiac murmur. He's had vertigo and acute renal failure. He's had some time at the extended care facility and is now home. Doing relatively well. Initially the sudden onset of the significant shortness of breath which rapidly increased over several hours. Because of this EMS was called. The patient was wondering if EMS could simply drop off some oxygen so he could stay home. His of course neutropenia to come to hospital. In the emergency center he was diagnosed with significant congestive heart failure. With diuresis he is having improvement of his lower extremity edema and shortness of breath. Over still having some orthopnea and significant dyspnea with any exertion. He is denying chest pain at this time. The hidradenitis is now being treated with Humira injections at home. This is on Fridays. This has been occurring for the last couple of months now. There is been decreasing amount of drainage. His skin is becoming less erythematous and inflamed. The amount of drainage is also starting to improve. The family is pleased that there is showing some improvement given the many year history of lack of improvement. The patient has been on significant prior antibiotic therapy with cephalexin and doxycycline. He's had bouts of diarrhea that were not C. diff. And was having some overall improvement of his status until the profound shortness of breath. Review of Systems As noted patient became very short of breath at admission. HEENT:Denies headache or acute visual change. Denies sinus or mouth discomforts. Denies neck stiffness or pain. Denies significant oral cavity pain. Denies difficulty on swallowing. Lungs: Severe shortness of breath positive coughand production no hemoptysis. Cardiovascular: Does complain of shortness of breath, he is not having chest pain. He does have orthopnea and dyspnea on minimal exertion no syncope Gastrointestinal:Denies nausea, vomiting, diarrhea, constipation, hematemesis, melena, hematochezia. No no significant change of bowel habit noticed. Musculoskeletal: denies significant myalgias or arthralgias. No new joint swelling. Denies new back pain. Skin: Chronic skin lesions Neuro: Denies headache or visual change. Denies any new onset weakness or difficulty with ambulation. Denies falls or seizures. Psychiatric:Denies anxiety or depression. Endocrine: Denies significant fatigue, denies significant weight loss or weight gain. Past Medical History Past Medical History: Atrial Fibrillation, Asthma, Cancer, Diabetes Mellitus, Eye Disorder, GERD/Reflux, GI Bleed, Hearing Disorder / Deafness, Pneumonia, Renal Disease, Respiratory Disorder, Skin Disorder Additional Past Medical History / Comment(s): renal failure, lung CA, cardiac arrythmia, ulcer,pt has hydradenitis on b/l legs, thighs weep and bandages them daily, left leg tib/\fib fx 08/12/16. was in [facility], went home. History of Any Multi-Drug Resistant Organisms: None Reported Past Surgical History: Appendectomy, Cholecystectomy, Orthopedic Surgery Additional Past Surgical History / Comment(s): lower and middle lobe of right lung removed due to cancer, lap band, UVP3, cyst removal off hip, surgery for perforated duodenal ulcer Past Anesthesia/Blood Transfusion Reactions: No Reported Reaction Past Psychological History: Depression Smoking Status: Former smoker Past Alcohol Use History: None Reported Additional Past Alcohol Use History / Comment(s): Patient was a smoker of 2-1/2 3 packs per day for 47 years, QUIT 4-5 YEARS AGO. He denies any medical marijuana, marijuana, street drug or alcohol use. Patient CURRENTLY AT [facility]. He has been on disability since 1990. THRU HIS WORK sustained lead poisoning there in 1971. 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 Past Drug Use History: None Reported - Past Family History Father Family Medical History: Cancer, Diabetes Mellitus, Liver Disease Mother Family Medical History: Cancer, Thyroid Disorder Medications and Allergies Home Medications and Allergies Comment(s): Current Medications Hydrocodone Bitart/Acetaminophen ([employer] [place] 10) 2 each PO Q12H [facility] Last Admin: 02/08/17 17:13 Dose: 2 each Albuterol Sulfate (Ventolin Nebulized) 2.5 mg INHALATION RT-QID [facility] Last Admin: 02/08/17 21:29 Dose: 2.5 mg Alprazolam (Xanax) 0.25 mg PO QID PRN PRN Reason: Anxiety Apixaban (Eliquis) 5 mg PO BID [facility] Calcitriol (Rocaltrol) 0.25 mcg PO SuTh@0900 [facility] Calcium Carbonate (Oscal 500+D) 1 each PO BID [facility] Last Admin: 02/08/17 09:46 Dose: 1 each Cephalexin (Keflex) 500 mg PO HS [facility] Cephalexin (Keflex) 1,000 mg PO DAILY [facility] Last Admin: 02/08/17 09:44 Dose: 1,000 mg Citalopram Hydrobromide (Celexa) 20 mg PO DAILY [facility] Last Admin: 02/08/17 09:46 Dose: 20 mg Diltiazem HCl (Cardizem Cd) 360 mg PO DAILY [facility] Last Admin: 02/08/17 09:45 Dose: 360 mg Ergocalciferol (Vitamin D2) 50,000 unit PO [id number] [facility] Last Admin: 02/08/17 09:48 Dose: 50,000 unit Furosemide (Lasix) 60 mg IV Q8H [facility] Last Admin: 02/08/17 17:14 Dose: 60 mg Insulin Human Lispro (Humalog) 0 unit SQ ACHS [facility] PRN Reason: Protocol Ipratropium [place] (Atrovent Nebulized) 0.5 mg INHALATION RT-QID PRN PRN Reason: Shortness Of Breath Linagliptin (Tradjenta) 5 mg PO DAILY [facility] Last Admin: 02/08/17 09:48 Dose: 5 mg Magnesium Oxide (Mag-Ox) 400 mg PO BID [facility] Last Admin: 02/08/17 09:46 Dose: 400 mg Meclizine HCl (Antivert) 25 mg PO Q8H PRN PRN Reason: Vertigo Methylprednisolone Sodium Succinate (Solu-Medrol) 40 mg IV Q12HR [facility] Last Admin: 02/08/17 13:09 Dose: 40 mg Miscellaneous Information (Magnesium Per Protocol) 1 each MISCELLANE DAILY PRN ; Protocol PRN Reason: Per Protocol Multivitamins (Theragran) 1 each PO DAILY [facility] Last Admin: 02/08/17 09:46 Dose: 1 each Nitroglycerin (Nitro-Bid Oint) 0.5 inch TOPICAL QID [facility] Last Admin: 02/08/17 17:05 Dose: Not Given Pantoprazole Sodium (Protonix) 40 mg PO AC-BID [facility] Last Admin: 02/08/17 17:13 Dose: 40 mg Sodium Chloride (Saline Flush) 10 ml IV BID [facility] Last Admin: 02/08/17 09:47 Dose: 10 ml Home Medications Medication Instructions Recorded Confirmed Type Calcitriol [Rocaltrol] 0.25 mcg PO SUTH 06/06/16 02/08/17 History Citalopram Hydrobromide [CeleXA] 20 mg PO DAILY 08/13/16 02/08/17 History Ergocalciferol [Vitamin D2 50,000 unit PO [id number] 08/29/16 02/08/17 History (DRISDOL)] Furosemide [Lasix] 80 mg PO BID 08/29/16 02/08/17 History Albuterol Nebulized [Ventolin 2.5 mg INHALATION RT-QID 10/23/16 02/08/17 History Nebulized] Calcium Carbonate/Vitamin D3 1 tab PO BID 10/23/16 02/08/17 History [Calcium 600-Vit D3 200 Tablet] Ipratropium [place] [Atrovent Hfa] 2 puff INHALATION RT-QID PRN 10/23/16 History Meclizine [Antivert] 25 mg PO Q8H PRN 10/23/16 02/08/17 History Multivitamins, Thera [Multivitamin 1 tab PO DAILY 10/23/16 02/08/17 History (formulary)] predniSONE 5 mg PO DAILY 10/23/16 02/08/17 History Adalimumab [Humira Crohn's] 40 mg SQ FR 02/08/17 02/08/17 History Albuterol Inhaler [Ventolin Hfa 1 - 2 puff INHALATION RT-Q6H PRN 02/08/17 History Inhaler] Cephalexin [Keflex] 1,000 mg PO DAILY 02/08/17 02/08/17 History Cephalexin [Keflex] 500 mg PO HS 02/08/17 02/08/17 History Dakin's Solution 10 oz TOPICAL DIRECTED 02/08/17 02/08/17 History Diltiazem HCl [Cardizem LA] 360 mg PO DAILY 02/08/17 02/08/17 History Diphenoxylate HCl/Atropine 1 tab PO TID PRN 02/08/17 02/08/17 History [Lomotil] Fluticasone/Salmeterol [Advair 2 puff INHALATION RT-BID 02/08/17 02/08/17 History 100-50 Diskus] HYDROcodone/APAP 10-325MG [[employer] [place] 1 tab PO QID PRN 02/08/17 02/08/17 History 10-325] Omeprazole [PriLOSEC] 20 mg PO BID 02/08/17 02/08/17 History Sildenafil Citrate [Viagra] 100 mg PO DAILY PRN 02/08/17 02/08/17 History Allergies Allergy/AdvReac Type Severity Reaction Status Date / Time clindamycin AdvReac Diarrhea Verified 02/08/17 08:21 Physical Exam Vitals: Vital Signs Temp Pulse Pulse Pulse Resp BP BP 02/08/17 21:41 84 02/08/17 21:30 84 02/08/17 16:13 77 02/08/17 16:03 76 02/08/17 16:00 98.1 F 81 22 111/66 02/08/17 12:00 79 22 02/08/17 11:30 96.8 F L 79 22 112/70 02/08/17 08:00 79 79 20 02/08/17 07:50 98.5 F 79 79 20 108/66 02/08/17 05:39 97.1 F L 83 20 113/69 02/08/17 05:18 99.0 F 89 22 131/79 Pulse Ox 02/08/17 21:41 02/08/17 21:30 02/08/17 16:13 02/08/17 16:03 02/08/17 16:00 94 L 02/08/17 12:00 02/08/17 11:30 99 02/08/17 08:00 02/08/17 07:50 96 02/08/17 05:39 96 02/08/17 05:18 93 L Intake and Output 02/08/17 02/08/17 02/08/17 06:59 14:59 22:59 Output Total 250 1999 Balance -250 -1999 Output: Urine 250 1999 Other: Voiding Method Urinal Urinal Urinal Weight 149 kg 154.5 kg Patient Weight 02/09/17 06:59 Weight 154.5 kg 66-year-old male with obesity who is short of breath with exertion while lying in bed HEENT: Anicteric conjunctiva are pink and moist nasal mucosa grossly intact without significant lesions, there is no thrush. Neck: The neck is supple without significant lymphadenopathy or thyromegaly. Lungs: Symmetrical air entry. Few expiratory wheezes. Basilar crackles no dullness or egophony Heart: Irregular with an audible S1 and S2 soft S4 no click or rub 2/6 systolic murmur left sternal border Abdomen: Obese Positive bowel sounds soft and nontender without palpable masses or organomegaly. There was no guarding or rebound. Extremities: The upper extremities have excellent pulses they are symmetric, no significant petechiae or telangiectasia. No splinter hemorrhages were noted. Lower extremities show evidence of the edema that showing some improvement. Pulses were 2+ and symmetric. Neuro: Awake alert oriented to person place and time. There are no acute new gross focal sensory motor deficits. Skin evidence of the extensive hidradentitis of the buttocks and upper thighs though markedly improved from the last evaluation. The skin shows evidence of less denseness of erythema. There is less drainage although there still is quite a bit of the foul drainage characteristic of the disease. Not having much tenderness. Only a small amount of drainage at the base of the scrotum that was quite copious in the past. Results CBC & Chem 7: 02/08/17 00:35 02/08/17 00:35 Labs: Abnormal Lab Results - Last 24 Hours (Table) 02/08/17 Range/Units 19:59 POC Glucose (mg/dL) 250 H (75-99) mg/dL Laboratory Results WBC 23.4 k/uL (3.8-10.6) H 02/08/17 00:35 RBC 4.11 m/uL (4.30-5.90) L 02/08/17 00:35 Hgb 10.1 gm/dL (13.0-17.5) L 02/08/17 00:35 Hct 34.3 % (39.0-53.0) L 02/08/17 00:35 MCV 83.5 fL (80.0-100.0) 02/08/17 00:35 MCH 24.5 pg (25.0-35.0) L 02/08/17 00:35 MCHC 29.4 g/dL (31.0-37.0) L 02/08/17 00:35 RDW 18.8 % (11.5-15.5) H 02/08/17 00:35 Plt Count 427 k/uL (150-450) 02/08/17 00:35 Neutrophils % 86 % 02/08/17 00:35 Lymphocytes % 6 % 02/08/17 00:35 Monocytes % 6 % 02/08/17 00:35 Eosinophils % 1 % 02/08/17 00:35 Basophils % 0 % 02/08/17 00:35 Neutrophils # 20.2 k/uL (1.3-7.7) H 02/08/17 00:35 Lymphocytes # 1.3 k/uL (1.0-4.8) 02/08/17 00:35 Monocytes # 1.3 k/uL (0-1.0) H 02/08/17 00:35 Eosinophils # 0.1 k/uL (0-0.7) 02/08/17 00:35 Basophils # 0.1 k/uL (0-0.2) 02/08/17 00:35 Hypochromasia Marked 02/08/17 00:35 Anisocytosis Slight 02/08/17 00:35 Microcytosis Slight 02/08/17 00:35 PT 10.5 sec (9.0-12.0) 02/08/17 00:35 INR 1.0 (<1.1) 02/08/17 00:35 APTT 25.5 sec (22.0-30.0) 02/08/17 00:35 D-Dimer 6.02 mg/L FEU (<0.60) H 02/08/17 00:35 Sodium 137 mmol/L (137-145) 02/08/17 00:35 Potassium 5.1 mmol/L (3.5-5.1) 02/08/17 00:35 Chloride 97 mmol/L (98-107) L 02/08/17 00:35 Carbon Dioxide 28 mmol/L (22-30) 02/08/17 00:35 Anion Gap 12 mmol/L 02/08/17 00:35 BUN 33 mg/dL (9-20) H 02/08/17 00:35 Creatinine 1.80 mg/dL (0.66-1.25) H 02/08/17 00:35 Est GFR (MDRD) Af Amer 46 (>60 ml/min/1.73 sqM) 02/08/17 00:35 Est GFR (MDRD) Non-Af 38 (>60 ml/min/1.73 sqM) 02/08/17 00:35 Glucose 129 mg/dL (74-99) H 02/08/17 00:35 POC Glucose (mg/dL) 250 mg/dL (75-99) H 02/08/17 19:59 POC Glu Foxing Closer Alessandro Vaughn 03 19:59 Plasma Lactic Acid Jose Raul 1.1 mmol/L (0.7-2.0) 02/08/17 00:35 Calcium 8.3 mg/dL (8.4-10.2) L 02/08/17 00:35 Magnesium 1.4 mg/dL (1.6-2.3) L 02/08/17 00:35 Total Bilirubin 0.5 mg/dL (0.2-1.3) 02/08/17 00:35 AST 26 U/L (17-59) 02/08/17 00:35 ALT 30 U/L (21-72) 02/08/17 00:35 Alkaline Phosphatase 101 U/L (38-126) 02/08/17 00:35 Troponin I <0.012 ng/mL (0.000-0.034) 02/08/17 15:34 NT-Pro-B Natriuret Pep 35837 pg/mL 02/08/17 00:35 Total Protein 8.1 g/dL (6.3-8.2) 02/08/17 00:35 Albumin 3.3 g/dL (3.5-5.0) L 02/08/17 00:35 Influenza Type A RNA Not Detected (Not Detectd) 02/08/17 03:13 Influenza Type B (PCR) Not Detected (Not Detectd) 02/08/17 03:13 Laboratory Results WBC 23.4 k/uL (3.8-10.6) H 02/08/17 00:35 RBC 4.11 m/uL (4.30-5.90) L 02/08/17 00:35 Hgb 10.1 gm/dL (13.0-17.5) L 02/08/17 00:35 Hct 34.3 % (39.0-53.0) L 02/08/17 00:35 MCV 83.5 fL (80.0-100.0) 02/08/17 00:35 MCH 24.5 pg (25.0-35.0) L 02/08/17 00:35 MCHC 29.4 g/dL (31.0-37.0) L 02/08/17 00:35 RDW 18.8 % (11.5-15.5) H 02/08/17 00:35 Plt Count 427 k/uL (150-450) 02/08/17 00:35 Neutrophils % 86 % 02/08/17 00:35 Lymphocytes % 6 % 02/08/17 00:35 Monocytes % 6 % 02/08/17 00:35 Eosinophils % 1 % 02/08/17 00:35 Basophils % 0 % 02/08/17 00:35 Neutrophils # 20.2 k/uL (1.3-7.7) H 02/08/17 00:35 Lymphocytes # 1.3 k/uL (1.0-4.8) 02/08/17 00:35 Monocytes # 1.3 k/uL (0-1.0) H 02/08/17 00:35 Eosinophils # 0.1 k/uL (0-0.7) 02/08/17 00:35 Basophils # 0.1 k/uL (0-0.2) 02/08/17 00:35 Hypochromasia Marked 02/08/17 00:35 Anisocytosis Slight 02/08/17 00:35 Microcytosis Slight 02/08/17 00:35 PT 10.5 sec (9.0-12.0) 02/08/17 00:35 INR 1.0 (<1.1) 02/08/17 00:35 APTT 25.5 sec (22.0-30.0) 02/08/17 00:35 D-Dimer 6.02 mg/L FEU (<0.60) H 02/08/17 00:35 Sodium 137 mmol/L (137-145) 02/08/17 00:35 Potassium 5.1 mmol/L (3.5-5.1) 02/08/17 00:35 Chloride 97 mmol/L (98-107) L 02/08/17 00:35 Carbon Dioxide 28 mmol/L (22-30) 02/08/17 00:35 Anion Gap 12 mmol/L 02/08/17 00:35 BUN 33 mg/dL (9-20) H 02/08/17 00:35 Creatinine 1.80 mg/dL (0.66-1.25) H 02/08/17 00:35 Est GFR (MDRD) Af Amer 46 (>60 ml/min/1.73 sqM) 02/08/17 00:35 Est GFR (MDRD) Non-Af 38 (>60 ml/min/1.73 sqM) 02/08/17 00:35 Glucose 129 mg/dL (74-99) H 02/08/17 00:35 POC Glucose (mg/dL) 250 mg/dL (75-99) H 02/08/17 19:59 POC Glu [place] Closer Alessandro Vaughn 02/08/17 19:59 Plasma Lactic Acid Jose Raul 1.1 mmol/L (0.7-2.0) 02/08/17 00:35 Calcium 8.3 mg/dL (8.4-10.2) L 02/08/17 00:35 Magnesium 1.4 mg/dL (1.6-2.3) L 02/08/17 00:35 Total Bilirubin 0.5 mg/dL (0.2-1.3) 02/08/17 00:35 AST 26 U/L (17-59) 02/08/17 00:35 ALT 30 U/L (21-72) 02/08/17 00:35 Alkaline Phosphatase 101 U/L (38-126) 02/08/17 00:35 Troponin I <0.012 ng/mL (0.000-0.034) 02/08/17 15:34 NT-Pro-B Natriuret Pep 06621 pg/mL 02/08/17 00:35 Total Protein 8.1 g/dL (6.3-8.2) 02/08/17 00:35 Albumin 3.3 g/dL (3.5-5.0) L 02/08/17 00:35 Influenza Type A RNA Not Detected (Not Detectd) 02/08/17 03:13 Influenza Type B (PCR) Not Detected (Not Detectd) 02/08/17 03:13 Chest x-ray: image reviewed (Right pleural effusion chronic opacities pulmonary edema VQ scan indeterminate) Assessment and Plan (1) Hidradenitis suppurativa Narrative/Plan: Pleasant 66-year-old male who has long-standing history hidradentis mostly involving his buttocks and upper thighs with copious amounts of drainage is been initiated to Humira therapy. His been tolerating this very well up till now. There is been decreasing amounts of drainage in improvement of the skin quality. The improvement is incremental at this time. Patient has been seen by cardiology and initiation of Elliqus has been requested and the patient is quite concerned. Last time he was on this anticoagulant he had significant bleeding from his profound sinus tracts of his skin. Now since he's had some response to Humira therapy he may be better tolerating the possibility of anticoagulation. And will consider at least attempting anticoagulation again. He monitored very closely. The area is not grossly infected and is not needed further antibiotic therapy He does have significant leukocytosis is likely multifactorial including the acute on chronic systolic heart failure There is evidence of increased creatinine from his baseline is being monitored closely. Patient is being followed by pulmonary critical care. Exacerbation of his underlying COPD. Receiving tapering doses of methylprednisolone breathing treatments and is also received antibiotic therapy with cephalexin. Status: Chronic (2) Chronic a-fib Status: Acute (3) Acute on chronic systolic heart failure Status: Acute
[2017-02-09] MEDS: FUROSEMIDE 10 MG/ML 4 ML VIAL IV SCH ×2 (01:47→10:19)
[2017-02-09 06:09] LABS: Glucose,Whole Blood 223 mg/dL (75-99)
[2017-02-09] MEDS: HYDROcodone/APAP 10-325MG 1 EACH TAB PO SCH ×2 (06:38→18:02)
[2017-02-09] MEDS: PANTOPRAZOLE 40 MG TABLET PO SCH ×2 (06:38→18:02)
[2017-02-09] MEDS: INSULIN LISPRO (humaLOG) 300 UNIT/3 ML VIAL SQ SCH ×4 (06:39→21:20)
[2017-02-09 07:14] LABS: Anisocytosis Slight; Basophils % (A) 0 %; CHCM 29.5; Eosinophils % (A) 0 %; HCT 31.4 % (39.0-53.0); HGB 9.3 gm/dL (13.0-17.5); Hypochromasia Marked; Luc # (Auto) 0.15; Luc % (Auto) 1; Lymphocytes # (A) 0.7 k/uL (1.0-4.8); Lymphocytes % (A) 5 %; MCH 25.1 pg (25.0-35.0); MCHC 29.6 g/dL (31.0-37.0); MCV 84.8 fL (80.0-100.0); Mean Platelet Volume 7.9; Microcytosis Slight; Monocytes # (A) 0.2 k/uL (0-1.0); Monocytes % (A) 1 %; Neutrophils # (A) 12.3 k/uL (1.3-7.7); Neutrophils % (A) 92 %; RDW 19.3 % (11.5-15.5); WBC 13.3 k/uL (3.8-10.6); WBC (Perox) 14.64
[2017-02-09 07:28] LABS: Calcium 8.3 mg/dL (8.4-10.2); Magnesium 1.9 mg/dL (1.6-2.3); Potassium 4.7 mmol/L (3.5-5.1)
[2017-02-09] MEDS ORDERED: INSULIN LISPRO (humaLOG) 300 UNIT/3 ML VIAL SQ SCH (07:30)
[2017-02-09] MEDS: ALBUTEROL NEBULIZED 2.5 MG/3 ML INHALATION SCH ×4 (07:58→19:52)
[2017-02-09 08:35] LABS: Hemoglobin A1C 6.2 % (4.2-6.1)
--- NOTE | 2017-02-09 08:41 | XR ---
EXAMINATION TYPE: XR chest 1V portable DATE OF EXAM: 02/09/2017 6:54 AM COMPARISON: Prior chest x-ray January HISTORY: Congestive heart failure, shortness of breath TECHNIQUE: Single frontal view of the chest is obtained. FINDINGS: Similar findings. Interstitium is increased. Heart is enlarged. There is obscured right he midiaphragm. Increased opacity present at the right lung base. No evident pneumothorax. IMPRESSION: Similar findings. Correlate for congestive heart failure, interstitial edema, interstiti al lung disease. Suspect some chronic pleural reaction right lung base.
[2017-02-09] MEDS ORDERED: CALCITRIOL 0.25 MCG CAP PO SCH (09:00)
[2017-02-09] MEDS: APIXABAN 5 MG TAB PO SCH ×2 (10:14→21:42)
[2017-02-09] MEDS: CALCIUM CARB-VIT D 500MG-200UN 1 EACH TAB PO SCH ×2 (10:15→21:42)
[2017-02-09] MEDS: CEPHALEXIN 500 MG CAP PO SCH ×2 (10:16→21:42)
[2017-02-09] MEDS: DILTIAZEM CD 180 MG CAP.ER.24H PO SCH (10:17)
[2017-02-09] MEDS: CITALOPRAM HYDROBROMIDE 20 MG TAB PO SCH (10:17)
[2017-02-09] MEDS: MAGNESIUM OXIDE 400 MG TAB PO SCH ×2 (10:18→21:44)
[2017-02-09] MEDS: LINAGLIPTIN 5 MG TABLET PO SCH (10:18)
[2017-02-09] MEDS: MULTIVITAMINS, THERA 1 EACH TAB PO SCH (10:18)
[2017-02-09] MEDS: NITROGLYCERIN OINT 1 INCH/GM PACKET TOPICAL SCH ×2 (10:18→12:01)
[2017-02-09] MEDS: methylPREDNISolone SOD SUCCI 40 MG/ML 1 ML VIAL IV SCH ×2 (10:21→21:44)
[2017-02-09 11:47] LABS: Glucose,Whole Blood 209 mg/dL (75-99)
--- NOTE | 2017-02-09 12:29 | ECHOF ---
Referral Reason:heart failure MEASUREMENTS -------- HEIGHT: 198.1 cm WEIGHT: 154.2 kg BP: 112/70 IVSd: 1.4 cm (0.6 - 1.1) LVIDd: 5.1 cm (3.9 - 5.3) LVPWd: 1.5 cm (0.6 - 1.1) IVSs: 1.9 cm LVIDs: 4.0 cm LVPWs: 2.0 cm LA Diam: 5.0 cm (2.7 - 3.8) LAESV Index (A-L): 40.97 ml/m Ao Diam: 4.2 cm (2.0 - 3.7) AV Cusp: 2.2 cm (1.5 - 2.6) LA Diam: 3.9 cm (2.7 - 3.8) MV EXCURSION: 19.523 mm (> 18.000) MV EF SLOPE: 67 mm/s (70 - 150) RAP: 5.00 mmHg RVSP: 38.04 mmHg FINDINGS -------- Atrial fibrillation. This was a technically difficult study with suboptimal views. The left ventricular size is normal. There is moderate concentric left ventricular hypertrophy. Overall left ventricular systolic function is low-normal with, an EF between 50 - 55 %. LA is severely dilated >40 ml/m2 The right atrium is normal in size. 1.5mg of Definity was utilized for enhancement of images Aortic valve is trileaflet and is mildly thickened. The mitral valve leaflets are mildly thickened. Mild mitral regurgitation is present. Mild tricuspid regurgitation present. There is mild pulmonary hypertension. The right ventricular systolic pressure, as measured by Doppler, is 38.04mmHg. There is no pulmonic regurgitation present. The aortic root is mildy dilated. The inferior vena cava is mildly dilated. There is no pericardial effusion. CONCLUSIONS -------- 1. Atrial fibrillation. 2. Mild tricuspid regurgitation present. 3. There is mild pulmonary hypertension. 4. There is no pulmonic regurgitation present. 5. The aortic root is mildy dilated. 6. The inferior vena cava is mildly dilated. 7. There is no pericardial effusion. 8. This was a technically difficult study with suboptimal views. 9. There is moderate concentric left ventricular hypertrophy. 10. Overall left ventricular systolic function is low-normal with, an EF between 50 - 55 %. 11. LA is severely dilated >40 ml/m2 12. 1.5mg of Definity was utilized for enhancement of images 13. Aortic valve is trileaflet and is mildly thickened. 14. The mitral valve leaflets are mildly thickened. 15. Mild mitral regurgitation is present. BOILER REPAIRMAN: Emmanuel Schroeder RDCS
--- NOTE | 2017-02-09 13:10 | P.PN ---
Subjective Principal diagnosis: Shortness of breath This is a pleasant 66-year-old gentleman with history of diabetes, hypertension, hyperlipidemia, COPD, heart failure a stone diastolic dysfunction , paroxysmal atrial fibrillation, history of prior lobectomy for non-small Cell lung CA, history of depression, who presented to the hospital with symptoms of progressively worsening shortness of breath. Patient also had associated productive green sputum. Initial chest x-ray and presentation here revealed congestive heart failure with chronic changes in the right lower lobe related to previous lobectomy. Possible pneumonia. BNP was significantly elevated on admission, he also had associated leukocytosis with a white blood cell count of 23,000. Patient was noted to have an elevated d-dimer and for this reason a VQ scan was performed which was intermediate probability for pulmonary embolism. He is currently on Eliquis. Patient is also on IV antibiotics. He has been diuresing well on IV Lasix. He does state today that his breathing has improved significantly. Blood pressure today 118/72 with a heart rate in the 80s. He is afebrile.White blood cell count 13,000 today, Magnesium level I.9. potassium 4.7, BUN 30, creatinine 1.8. Objective - Vital Signs Vital signs: Vital Signs Temp 96.7 F L 02/09/17 07:19 Pulse 84 02/09/17 11:39 Resp 16 02/09/17 08:00 BP 118/73 02/09/17 07:19 Pulse Ox 96 02/09/17 04:00 Intake & Output 02/08/17 02/09/17 02/09/17 18:59 06:59 18:59 Intake Total 680 60 Output Total 2250 1300 100 Balance -2250 -620 -40 Weight 154.5 kg 151.5 kg Intake: IV 80 0.9 80 Oral 600 60 Output: Urine 2250 1300 100 Other: Voiding Method Urinal Urinal Urinal # Voids 2 1 - Exam PHYSICAL EXAMINATION: HEENT: Head is atraumatic, normocephalic. Pupils equal, round. Neck is supple. There is no elevated jugular venous pressure. HEART EXAMINATION: Heart S1, S2 normal. No murmur or gallop heard. CHEST EXAMINATION: Lungs reveal fine expiratory wheezes. ABDOMEN: Soft, nontender. Bowel sounds are heard. No organomegaly noted. EXTREMITIES: 2+ peripheral pulses with trace to 1+ no evidence of peripheral edema and no calf tenderness noted. NEUROLOGIC patient is awake, alert and oriented -3. . - Labs CBC & Chem 7: 02/09/17 06:20 02/09/17 06:20 Labs: Abnormal Lab Results - Last 24 Hours (Table) 02/08/17 02/09/17 02/09/17 Range/Units 19:59 06:08 06:20 WBC (3.8-10.6) k/uL RBC (4.30-5.90) m/uL Hgb (13.0-17.5) gm/dL Hct (39.0-53.0) % MCHC (31.0-37.0) g/dL RDW (11.5-15.5) % Neutrophils # (1.3-7.7) k/uL Lymphocytes # (1.0-4.8) k/uL Chloride 97 L (98-107) mmol/L Carbon Dioxide 32 H (22-30) mmol/L BUN 30 H (9-20) mg/dL Creatinine 1.81 H (0.66-1.25) mg/dL Glucose 226 H (74-99) mg/dL POC Glucose (mg/dL) 250 H 223 H (75-99) mg/dL Hemoglobin A1c (4.2-6.1) % Calcium 8.3 L (8.4-10.2) mg/dL 02/09/17 02/09/17 02/09/17 Range/Units 06:20 06:20 11:39 WBC 13.3 H (3.8-10.6) k/uL RBC 3.70 L (4.30-5.90) m/uL Hgb 9.3 L (13.0-17.5) gm/dL Hct 31.4 L (39.0-53.0) % MCHC 29.6 L (31.0-37.0) g/dL RDW 19.3 H (11.5-15.5) % Neutrophils # 12.3 H (1.3-7.7) k/uL Lymphocytes # 0.7 L (1.0-4.8) k/uL Chloride (98-107) mmol/L Carbon Dioxide (22-30) mmol/L BUN (9-20) mg/dL Creatinine (0.66-1.25) mg/dL Glucose (74-99) mg/dL POC Glucose (mg/dL) 209 H (75-99) mg/dL Hemoglobin A1c 6.2 H (4.2-6.1) % Calcium (8.4-10.2) mg/dL Assessment and Plan (1) Diastolic CHF, acute on chronic Status: Acute (2) Paroxysmal a-fib Status: Acute (3) Diabetes Status: Acute (4) HTN (hypertension) Status: Acute (5) Hyperlipemia Status: Acute (6) Pneumonia Status: Acute (7) Non-small cell carcinoma of lung Narrative/Plan: hx of lobectomy Status: Acute Plan: From cardiology's perspective, we will continue the current dose of Lasix at 60 mg IV every 12 hourly check lytes BUN and creatinine in the morning. DNP note has been reviewed, I agree with a documented findings and plan of care. Patient was seen and examined.
--- NOTE | 2017-02-09 14:37 | P.PN ---
Subjective Principal diagnosis: Shortness of breath, multifactorial secondary to CHF, diastolic dysfunction, and COPD as well as previous history of lung cancer with previous pneumonectomy. This is a 66-year-old white male with history of multiple medical problems including previous lobectomy for non-small cell lung cancer, underlying COPD, history of intermittent episodes of congestive heart failure, diastolic dysfunction, history of depression, paroxysmal atrial fibrillation, history of GERD, hidradenitis, patient presented to the ER yesterday with 4 days history of increased shortness of breath, cough which is productive with greenish phlegm , no fever no chills no hemoptysis no chest pain. Chest x-ray upon presentation showed congestive heart failure, chronic changes in the right lower lobe related to previous lobectomy, difficult to rule out underlying pneumonia, but felt to be less likely. His proBNP level was significantly elevated. He had leukocytosis with WBC count of 23.4. D-dimer was 6.02. Renal profile was abnormal, hence a VQ scan was done, and it was intermediate. Based on the clinical history, this is clearly not a presentation of thromboembolic disease, and my index of suspicion for thromboembolic disease is 0. Patient was placed on diuretics since admission antibiotics and bronchodilators, he was placed back on his usual dose of prednisone which is 5 mg daily, however I switched that to IV Solu-Medrol. Reevaluated today on 02/09/2017, patient is doing much better, breathing a lot easier. Hardly any cough no wheezing no shortness of breath. Chest x-ray continues to show some interstitial edema but slightly improved compared to baseline chest x-ray. On admission. Considering his renal profile, I will cut down his Lasix to 60 mg IV push twice a day instead of 3 times a day. Objective - Vital Signs Vital signs: Vital Signs Temp 96.7 F L 02/09/17 07:19 Pulse 84 02/09/17 11:39 Resp 16 02/09/17 09:00 BP 118/73 02/09/17 07:19 Pulse Ox 96 02/09/17 04:00 Intake & Output 02/08/17 02/09/17 02/09/17 18:59 06:59 18:59 Intake Total 680 60 Output Total 2250 1300 200 Balance -2250 -620 -140 Weight 154.5 kg 151.5 kg Intake: IV 80 0.9 80 Oral 600 60 Output: Urine 2250 1300 200 Other: Voiding Method Urinal Urinal Urinal # Voids 2 1 - Exam Physical Exam: Revealed a 66-year-old obese, in no distress. HEENT:[Neck is supple.] [No neck masses.] [No thyromegaly.] [No JVD.] Chest: [Crackles at the bases, some wheezing on forced expiratory maneuver..] Cardiac Exam: [Normal S1 and S2, no S3 gallop, no murmur.] Abdomen: [Soft, nontender, no megaly, no rebound, no guarding, normal bowel sounds.] Extremities: [No clubbing, 3+ bipedal edema, no cyanosis.] Neurological Exam: [No focal neurologic deficit.] - Labs CBC & Chem 7: 02/09/17 06:20 02/09/17 06:20 Labs: Abnormal Lab Results - Last 24 Hours (Table) 02/08/17 02/09/17 02/09/17 Range/Units 19:59 06:08 06:20 WBC (3.8-10.6) k/uL RBC (4.30-5.90) m/uL Hgb (13.0-17.5) gm/dL Hct (39.0-53.0) % MCHC (31.0-37.0) g/dL RDW (11.5-15.5) % Neutrophils # (1.3-7.7) k/uL Lymphocytes # (1.0-4.8) k/uL Chloride 97 L (98-107) mmol/L Carbon Dioxide 32 H (22-30) mmol/L BUN 30 H (9-20) mg/dL Creatinine 1.81 H (0.66-1.25) mg/dL Glucose 226 H (74-99) mg/dL POC Glucose (mg/dL) 250 H 223 H (75-99) mg/dL Hemoglobin A1c (4.2-6.1) % Calcium 8.3 L (8.4-10.2) mg/dL 02/09/17 02/09/17 02/09/17 Range/Units 06:20 06:20 11:39 WBC 13.3 H (3.8-10.6) k/uL RBC 3.70 L (4.30-5.90) m/uL Hgb 9.3 L (13.0-17.5) gm/dL Hct 31.4 L (39.0-53.0) % MCHC 29.6 L (31.0-37.0) g/dL RDW 19.3 H (11.5-15.5) % Neutrophils # 12.3 H (1.3-7.7) k/uL Lymphocytes # 0.7 L (1.0-4.8) k/uL Chloride (98-107) mmol/L Carbon Dioxide (22-30) mmol/L BUN (9-20) mg/dL Creatinine (0.66-1.25) mg/dL Glucose (74-99) mg/dL POC Glucose (mg/dL) 209 H (75-99) mg/dL Hemoglobin A1c 6.2 H (4.2-6.1) % Calcium (8.4-10.2) mg/dL Assessment and Plan Plan: Impression: 1 Shortness of breath secondary to congestive heart failure, suspect to be diastolic in nature, underlying COPD, and chronic right lower lobe atelectasis with previous lobectomy related to previous non-small cell lung cancer. 2 multiple comorbidities including COPD, paroxysmal atrial fibrillation, lungs CTA, type 2 diabetes, GERD, previous episode of GI bleeding, history of left lower extremity tibial fracture last year, chronic hidradenitis, morbid obesity Recommendation: I agree with the present treatment plan including diuretics, Lasix 60 mg IV push every 12 hours, hence very to monitor his renal profile closely. Continue antibiotics empirically although my index of suspicion for pneumonia is rather low but clearly the patient has symptoms of tracheobronchitis. Continue bronchodilators and cardiac meds continue Lovenox, and we will continue to follow closely. Time with Patient: Less than 30
[2017-02-09 15:16] VITALS: BMI 38.5
--- NOTE | 2017-02-09 15:36 | P.PN ---
Subjective Patient is a 66-year-old male, patient of Dr. 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 Patient presented to the emergency department with complaints of increased shortness of breath, productive cough, and increased leg edema. No history of fevers, chills, or chest pain. Chest x-ray suspicious for pulmonary edema with possible pneumonia. EKG on admission with evidence of atrial fibrillation controlled ventricular rate. WBC 23.4, hemoglobin 10.1, d-dimer elevated at 6.02, BUN 33, creatinine 1.8, magnesium 1.4 , troponin less than 0.0122, pro BNP 11,700, influenza type A and B negative. VQ scan with intermediate probability for pulmonary embolism. Bilateral ultrasound venous Doppler study of lower extremities negative for DVT. Patient was admitted to the selective care unit with consults to Dr. Adame for pulmonary service, cardiology service, and Dr. Hardy from infectious disease service. 02/09/2017: Patient is evaluated at bedside. Patient reports improvement in breathing. Patient still complains of a congestive cough he says won't go away. Denies chills, fevers, nausea, vomiting, or abdominal pain. Patient reports good appetite. Patient is urinating without difficulties. Denies constipation or diarrhea. Chest x-ray from this morning with similar findings from previous x-ray. White count improved to 13.3. Creatinine stable at 1.81. Pulmonary service is seen and evaluated patient and decreased dose of Lasix to 60 mg IV from 3 times a day to twice a day. Cardiology has seen and evaluated patient and agrees with IV Lasix decreased dose. Infectious disease service has evaluated patient and agrees that patient is ok to start anticoagulation if needed since the initiation of Humira therapy for his hidradenitis supporativa. Objective - Vital Signs Vital signs: Vital Signs Temp 96.7 F L 02/09/17 07:19 Pulse 84 02/09/17 11:39 Resp 16 02/09/17 09:00 BP 118/73 02/09/17 07:19 Pulse Ox 96 02/09/17 04:00 Intake & Output 02/08/17 02/09/17 02/09/17 18:59 06:59 18:59 Intake Total 680 60 Output Total 2250 1300 200 Balance -2250 -620 -140 Weight 154.5 kg 151.5 kg 151.5 kg Intake: IV 80 0.9 80 Oral 600 60 Output: Urine 2250 1300 200 Other: Voiding Method Urinal Urinal Urinal # Voids 2 1 - Exam GENERAL: Pt awake and alert, well-appearing, well-nourished, and in no acute distress. HEAD: Atraumatic, normocephalic. EYES: Pupils equal, round, and reactive to light. Sclera anicteric, conjunctiva are normal. ENT: Moist mucous membranes. NECK: Supple without lymphadenopathy or JVD. LUNGS: Breath sounds diminished throughout lung rushing. HEART: Heart S1, S2, no S3 or S4. Irregularly irregular. No murmurs, rubs or gallops. ABDOMEN: Soft, obese, nontender, nondistended, normoactive bowel sounds. No guarding, no rebound. No masses or organomegaly appreciated. EXTREMITIES: Palpable peripheral pulses. 3+ edema to bilateral lower extremities. No calf tenderness. Right foot cooler than right left foot. NEUROLOGICAL: Pt oriented x 3. Cranial nerves II through XII grossly intact. Strength and sensation grossly intact. PSYCH: Normal mood, normal affect. SKIN: Warm, dry, intact. Normal turgor. - Labs CBC & Chem 7: 02/09/17 06:20 02/09/17 06:20 Labs: Abnormal Lab Results - Last 24 Hours (Table) 02/08/17 02/09/17 02/09/17 Range/Units 19:59 06:08 06:20 WBC (3.8-10.6) k/uL RBC (4.30-5.90) m/uL Hgb (13.0-17.5) gm/dL Hct (39.0-53.0) % MCHC (31.0-37.0) g/dL RDW (11.5-15.5) % Neutrophils # (1.3-7.7) k/uL Lymphocytes # (1.0-4.8) k/uL Chloride 97 L (98-107) mmol/L Carbon Dioxide 32 H (22-30) mmol/L BUN 30 H (9-20) mg/dL Creatinine 1.81 H (0.66-1.25) mg/dL Glucose 226 H (74-99) mg/dL POC Glucose (mg/dL) 250 H 223 H (75-99) mg/dL Hemoglobin A1c (4.2-6.1) % Calcium 8.3 L (8.4-10.2) mg/dL 02/09/17 02/09/17 02/09/17 Range/Units 06:20 06:20 11:39 WBC 13.3 H (3.8-10.6) k/uL RBC 3.70 L (4.30-5.90) m/uL Hgb 9.3 L (13.0-17.5) gm/dL Hct 31.4 L (39.0-53.0) % MCHC 29.6 L (31.0-37.0) g/dL RDW 19.3 H (11.5-15.5) % Neutrophils # 12.3 H (1.3-7.7) k/uL Lymphocytes # 0.7 L (1.0-4.8) k/uL Chloride (98-107) mmol/L Carbon Dioxide (22-30) mmol/L BUN (9-20) mg/dL Creatinine (0.66-1.25) mg/dL Glucose (74-99) mg/dL POC Glucose (mg/dL) 209 H (75-99) mg/dL Hemoglobin A1c 6.2 H (4.2-6.1) % Calcium (8.4-10.2) mg/dL Assessment and Plan Plan: Impression and plan: 1. Progressive shortness of breath suspect multifactorial: Acute on chronic diastolic heart failure, possible pneumonia, exacerbation of COPD, chronic right lower lobe atelectasis with previous lobectomy related to non-small cell lung cancer. Cardiology and pulmonary service has been consulted, recommendations noted. Continue nebulized updraft treatments, IV Lasix has been decreased to 60 mg IV twice a day, Solu-Medrol decreased to 40 mg IV every 12 hours. 2. Paroxysmal atrial fibrillation not currently on outpatient anticoagulation secondary to severe hydradenitis. Continue Cardizem. From an ID standpoint, patient could be started on a trial of anticoagulation since he's had improvement and drainage of hidradenitis supporative since treatment with Humira. 3. Acute on chronic diastolic heart failure with last ejection fraction 45-50% . Continue IV Lasix. 4. Hydradenitis supporative, chronic. Patient follows with Dr. Hardy in the outpatient setting and was recently started on Humira with improvement. Continue Keflex. 5. History of hypertension. 6. Diabetes mellitus type 2, controlled. Hemoglobin A1c 6.2. Continue Tradjenta. Continue Accu-Cheks before meals at bedtime with Humalog sliding scale. Continue consistent carbohydrate diet. 7. History of non-small cell lung cancer with right lower and middle lobectomy. 8. Acute on chronic renal failure, stage III. 9. Anemia of chronic kidney disease. 10. Elevated d-dimer, present on admission. VQ scan with evidence of intermediate probability for PE. Venous Doppler studies negative for DVT. Dr. Adame has been consulted for need for anticoagulation. 11. Leukocytosis, present on arrival, improved. 12. Hypomagnesemia. Continue magnesium by mouth. 13. Anemia of chronic disease. Patient follows with Dr. Mireles and has received Procrit injections in past. Continue to monitor patient. Home medications have been reviewed and resumed as appropriate. Continue to follow with pulmonology, cardiology, and infectious disease service. Continue supportive treatment and pain management. Repeat blood work in a.m. The above impression and plan have been discussed and directed by Dr. Flores. Tino MEDEL acting as scribe for Dr. Flores.
[2017-02-09 16:33] LABS: Glucose,Whole Blood 186 mg/dL (75-99)
[2017-02-09 20:59] LABS: Glucose,Whole Blood 281 mg/dL (75-99)
--- NOTE | 2017-02-09 21:42 | P.PN ---
Subjective Principal diagnosis: Progressive shortness of breath 66-year-old male who is well-known to the infectious disease service with as many hospitalizations as well as his hidradenitis. He's had a couple hospitalizations in the last several months that included atrial fibrillation with nonsustained V. tach. He has underlying cardiac murmur. He's had vertigo and acute renal failure. He's had some time at the extended care facility and is now home. Doing relatively well. Initially the sudden onset of the significant shortness of breath which rapidly increased over several hours. Because of this EMS was called. The patient was wondering if EMS could simply drop off some oxygen so he could stay home. His of course neutropenia to come to hospital. In the emergency center he was diagnosed with significant congestive heart failure. With diuresis he is having improvement of his lower extremity edema and shortness of breath. Over still having some orthopnea and significant dyspnea with any exertion. He is denying chest pain at this time. The hidradenitis is now being treated with Humira injections at home. This is on Fridays. This has been occurring for the last couple of months now. There is been decreasing amount of drainage. His skin is becoming less erythematous and inflamed. The amount of drainage is also starting to improve. The family is pleased that there is showing some improvement given the many year history of lack of improvement. The patient has been on significant prior antibiotic therapy with cephalexin and doxycycline. He's had bouts of diarrhea that were not C. diff. And was having some overall improvement of his status until the profound shortness of breath. Now with extensive diuresis he feels considerably better. He is much less short of breath. He denies other acute no difficulties at this time. Objective - Vital Signs Vital signs: Vital Signs Temp 97 F L 02/09/17 20:18 Pulse 79 02/09/17 20:19 Resp 20 02/09/17 20:19 BP 123/64 02/09/17 20:18 Pulse Ox 99 02/09/17 20:18 Intake & Output 02/09/17 02/09/17 02/10/17 06:59 18:59 06:59 Intake Total 680 780 Output Total 1300 200 Balance -620 580 Weight 151.5 kg 151.5 kg Intake: IV 80 0.9 80 Oral 600 780 Output: Urine 1300 200 Other: Voiding Method Urinal Urinal # Voids 2 1 - Exam 66-year-old male with obesity who is short of breath with exertion while lying in bed HEENT: Anicteric conjunctiva are pink and moist nasal mucosa grossly intact without significant lesions, there is no thrush. Neck: The neck is supple without significant lymphadenopathy or thyromegaly. Lungs: Symmetrical air entry. Few expiratory wheezes. Basilar crackles no dullness or egophony Heart: Irregular with an audible S1 and S2 soft S4 no click or rub 2/6 systolic murmur left sternal border Abdomen: Obese Positive bowel sounds soft and nontender without palpable masses or organomegaly. There was no guarding or rebound. Extremities: The upper extremities have excellent pulses they are symmetric, no significant petechiae or telangiectasia. No splinter hemorrhages were noted. Lower extremities show evidence of the edema that showing some improvement. Pulses were 2+ and symmetric. Neuro: Awake alert oriented to person place and time. There are no acute new gross focal sensory motor deficits. Skin evidence of the extensive hidradentitis of the buttocks and upper thighs though markedly improved from the last evaluation. The skin shows evidence of less denseness of erythema. There is less drainage although there still is quite a bit of the foul drainage characteristic of the disease. Not having much tenderness. Only a small amount of drainage at the base of the scrotum that was quite copious in the past. - Labs CBC & Chem 7: 02/09/17 06:20 02/09/17 06:20 Labs: Abnormal Lab Results - Last 24 Hours (Table) 02/09/17 02/09/17 02/09/17 Range/Units 06:08 06:20 06:20 WBC 13.3 H (3.8-10.6) k/uL RBC 3.70 L (4.30-5.90) m/uL Hgb 9.3 L (13.0-17.5) gm/dL Hct 31.4 L (39.0-53.0) % MCHC 29.6 L (31.0-37.0) g/dL RDW 19.3 H (11.5-15.5) % Neutrophils # 12.3 H (1.3-7.7) k/uL Lymphocytes # 0.7 L (1.0-4.8) k/uL Chloride 97 L (98-107) mmol/L Carbon Dioxide 32 H (22-30) mmol/L BUN 30 H (9-20) mg/dL Creatinine 1.81 H (0.66-1.25) mg/dL Glucose 226 H (74-99) mg/dL POC Glucose (mg/dL) 223 H (75-99) mg/dL Hemoglobin A1c (4.2-6.1) % Calcium 8.3 L (8.4-10.2) mg/dL 02/09/17 02/09/17 02/09/17 Range/Units 06:20 11:39 16:27 WBC (3.8-10.6) k/uL RBC (4.30-5.90) m/uL Hgb (13.0-17.5) gm/dL Hct (39.0-53.0) % MCHC (31.0-37.0) g/dL RDW (11.5-15.5) % Neutrophils # (1.3-7.7) k/uL Lymphocytes # (1.0-4.8) k/uL Chloride (98-107) mmol/L Carbon Dioxide (22-30) mmol/L BUN (9-20) mg/dL Creatinine (0.66-1.25) mg/dL Glucose (74-99) mg/dL POC Glucose (mg/dL) 209 H 186 H (75-99) mg/dL Hemoglobin A1c 6.2 H (4.2-6.1) % Calcium (8.4-10.2) mg/dL 02/09/17 Range/Units 20:57 WBC (3.8-10.6) k/uL RBC (4.30-5.90) m/uL Hgb (13.0-17.5) gm/dL Hct (39.0-53.0) % MCHC (31.0-37.0) g/dL RDW (11.5-15.5) % Neutrophils # (1.3-7.7) k/uL Lymphocytes # (1.0-4.8) k/uL Chloride (98-107) mmol/L Carbon Dioxide (22-30) mmol/L BUN (9-20) mg/dL Creatinine (0.66-1.25) mg/dL Glucose (74-99) mg/dL POC Glucose (mg/dL) 281 H (75-99) mg/dL Hemoglobin A1c (4.2-6.1) % Calcium (8.4-10.2) mg/dL Laboratory Results WBC 13.3 k/uL (3.8-10.6) H 02/09/17 06:20 RBC 3.70 m/uL (4.30-5.90) L 02/09/17 06:20 Hgb 9.3 gm/dL (13.0-17.5) L 02/09/17 06:20 Hct 31.4 % (39.0-53.0) L 02/09/17 06:20 MCV 84.8 fL (80.0-100.0) 02/09/17 06:20 MCH 25.1 pg (25.0-35.0) 02/09/17 06:20 MCHC 29.6 g/dL (31.0-37.0) L 02/09/17 06:20 RDW 19.3 % (11.5-15.5) H 02/09/17 06:20 Plt Count 307 k/uL (150-450) 02/09/17 06:20 Neutrophils % 92 % 02/09/17 06:20 Lymphocytes % 5 % 02/09/17 06:20 Monocytes % 1 % 02/09/17 06:20 Eosinophils % 0 % 02/09/17 06:20 Basophils % 0 % 02/09/17 06:20 Neutrophils # 12.3 k/uL (1.3-7.7) H 02/09/17 06:20 Lymphocytes # 0.7 k/uL (1.0-4.8) L 02/09/17 06:20 Monocytes # 0.2 k/uL (0-1.0) 02/09/17 06:20 Eosinophils # 0.0 k/uL (0-0.7) 02/09/17 06:20 Basophils # 0.0 k/uL (0-0.2) 02/09/17 06:20 Hypochromasia Marked 02/09/17 06:20 Anisocytosis Slight 02/09/17 06:20 Microcytosis Slight 02/09/17 06:20 PT 10.5 sec (9.0-12.0) 02/08/17 00:35 INR 1.0 (<1.1) 02/08/17 00:35 APTT 25.5 sec (22.0-30.0) 02/08/17 00:35 D-Dimer 6.02 mg/L FEU (<0.60) H 02/08/17 00:35 Sodium 138 mmol/L (137-145) 02/09/17 06:20 Potassium 4.7 mmol/L (3.5-5.1) 02/09/17 06:20 Chloride 97 mmol/L (98-107) L 02/09/17 06:20 Carbon Dioxide 32 mmol/L (22-30) H 02/09/17 06:20 Anion Gap 9 mmol/L 02/09/17 06:20 BUN 30 mg/dL (9-20) H 02/09/17 06:20 Creatinine 1.81 mg/dL (0.66-1.25) H 02/09/17 06:20 Est GFR (MDRD) Af Amer 45 (>60 ml/min/1.73 sqM) 02/09/17 06:20 Est GFR (MDRD) Non-Af 37 (>60 ml/min/1.73 sqM) 02/09/17 06:20 Glucose 226 mg/dL (74-99) H 02/09/17 06:20 POC Glucose (mg/dL) 281 mg/dL (75-99) H 02/09/17 20:57 POC Glu [employer]man ID Kadi Linares 02/09/17 20:[address] Glu mg/dL 131 mg/dL 02/09/17 06:20 Hemoglobin A1c 6.2 % (4.2-6.1) H 02/09/17 06:20 Plasma Lactic Acid Jose Raul 1.1 mmol/L (0.7-2.0) 02/08/17 00:35 Calcium 8.3 mg/dL (8.4-10.2) L 02/09/17 06:20 Magnesium 1.9 mg/dL (1.6-2.3) 02/09/17 06:20 Total Bilirubin 0.5 mg/dL (0.2-1.3) 02/08/17 00:35 AST 26 U/L (17-59) 02/08/17 00:35 ALT 30 U/L (21-72) 02/08/17 00:35 Alkaline Phosphatase 101 U/L (38-126) 02/08/17 00:35 Troponin I <0.012 ng/mL (0.000-0.034) 02/08/17 15:34 NT-Pro-B Natriuret Pep 37086 pg/mL 02/08/17 00:35 Total Protein 8.1 g/dL (6.3-8.2) 02/08/17 00:35 Albumin 3.3 g/dL (3.5-5.0) L 02/08/17 00:35 Influenza Type A RNA Not Detected (Not Detectd) 02/08/17 03:13 Influenza Type B (PCR) Not Detected (Not Detectd) 02/08/17 03:13 Microbiology 02/08/17 00:35 Blood Blood Culture - Preliminary No Growth after 24 hours Assessment and Plan (1) Hidradenitis suppurativa Narrative/Plan: Pleasant 66-year-old male who has long-standing history hidradentis mostly involving his buttocks and upper thighs with copious amounts of drainage is been initiated to Humira therapy. His been tolerating this very well up till now. There is been decreasing amounts of drainage in improvement of the skin quality. The improvement is incremental at this time. Patient has been seen by cardiology and initiation of Elliqus has been requested and the patient is quite concerned. Last time he was on this anticoagulant he had significant bleeding from his profound sinus tracts of his skin. Now since he's had some response to Humira therapy he may be better tolerating the possibility of anticoagulation. And will consider at least attempting anticoagulation again. He will be monitored very closely. The area is not grossly infected and is not needed further antibiotic therapy He does have significant leukocytosis is likely multifactorial including the acute on chronic systolic heart failure Influenza testing was negative There is evidence of increased creatinine from his baseline is being monitored closely. Patient is being followed by pulmonary critical care. Exacerbation of his underlying COPD. Receiving tapering doses of methylprednisolone breathing treatments and is also received antibiotic therapy with cephalexin. Blood cultures are negative. He's had a marked improvement with his diuretic therapy. Likely discharge home in the near future. Follow-up in the office for ongoing evaluation of his Humira therapy. Status: Chronic (2) Chronic a-fib Status: Acute (3) Acute on chronic systolic heart failure Status: Acute
[2017-02-09] MEDS: FUROSEMIDE 10 MG/ML 10 ML VIAL IV SCH (21:43)
[2017-02-10 05:46] VITALS: RESP 18
[2017-02-10 06:11] LABS: Glucose,Whole Blood 235 mg/dL (75-99)
[2017-02-10] MEDS: HYDROcodone/APAP 10-325MG 1 EACH TAB PO SCH (06:41)
[2017-02-10] MEDS: INSULIN LISPRO (humaLOG) 300 UNIT/3 ML VIAL SQ SCH ×2 (06:42→12:13)
[2017-02-10] MEDS: PANTOPRAZOLE 40 MG TABLET PO SCH (06:42)
[2017-02-10] MEDS: ALBUTEROL NEBULIZED 2.5 MG/3 ML INHALATION SCH ×2 (08:07→11:47)
[2017-02-10] MEDS: CALCIUM CARB-VIT D 500MG-200UN 1 EACH TAB PO SCH (09:16)
[2017-02-10] MEDS: APIXABAN 5 MG TAB PO SCH (09:16)
[2017-02-10 09:19] LABS: Anisocytosis Slight; Basophils % (A) 0 %; CH 25.1; Eosinophils % (A) 0 %; HCT 33.2 % (39.0-53.0); HDW 2.65; HGB 9.8 gm/dL (13.0-17.5); Hypochromasia Marked; Luc # (Auto) 0.13; Luc % (Auto) 1; Lymphocytes # (A) 0.8 k/uL (1.0-4.8); Lymphocytes % (A) 7 %; MCH 24.7 pg (25.0-35.0); MCHC 29.5 g/dL (31.0-37.0); MCV 83.9 fL (80.0-100.0); Mean Platelet Volume 7.9; Microcytosis Slight; Monocytes # (A) 0.4 k/uL (0-1.0); Monocytes % (A) 3 %; Neutrophils # (A) 10.5 k/uL (1.3-7.7); Neutrophils % (A) 89 %; RBC 3.96 m/uL (4.30-5.90); RDW 19.2 % (11.5-15.5); WBC 11.8 k/uL (3.8-10.6); WBC (Perox) 12.78
[2017-02-10] MEDS: CITALOPRAM HYDROBROMIDE 20 MG TAB PO SCH (09:21)
[2017-02-10] MEDS: MULTIVITAMINS, THERA 1 EACH TAB PO SCH (09:21)
[2017-02-10] MEDS: CEPHALEXIN 500 MG CAP PO SCH (09:21)
[2017-02-10] MEDS: DILTIAZEM CD 180 MG CAP.ER.24H PO SCH (09:21)
[2017-02-10] MEDS: LINAGLIPTIN 5 MG TABLET PO SCH (09:22)
[2017-02-10] MEDS: MAGNESIUM OXIDE 400 MG TAB PO SCH (09:22)
[2017-02-10 09:27] LABS: Calcium 8.8 mg/dL (8.4-10.2); Potassium 4.9 mmol/L (3.5-5.1)
[2017-02-10] MEDS: FUROSEMIDE 10 MG/ML 10 ML VIAL IV SCH (09:58)
[2017-02-10] MEDS: methylPREDNISolone SOD SUCCI 40 MG/ML 1 ML VIAL IV SCH (09:58)
[2017-02-10 11:36] VITALS: BP 141/77; TEMP 97.1
[2017-02-10 12:03] LABS: Glucose,Whole Blood 171 mg/dL (75-99)
--- NOTE | 2017-02-10 12:20 | P.PN ---
Subjective Principal diagnosis: Dyspnea, multifactorial. Acute exacerbation of diastolic congestive heart failure, acute exacerbation of COPD, previous pneumonectomy secondary to lung cancer. This is a 66-year-old white male with history of multiple medical problems including previous lobectomy for non-small cell lung cancer, underlying COPD, history of intermittent episodes of congestive heart failure, diastolic dysfunction, history of depression, paroxysmal atrial fibrillation, history of GERD, hidradenitis, patient presented to the ER yesterday with 4 days history of increased shortness of breath, cough which is productive with greenish phlegm , no fever no chills no hemoptysis no chest pain. Chest x-ray upon presentation showed congestive heart failure, chronic changes in the right lower lobe related to previous lobectomy, difficult to rule out underlying pneumonia, but felt to be less likely. His proBNP level was significantly elevated. He had leukocytosis with WBC count of 23.4. D-dimer was 6.02. Renal profile was abnormal, hence a VQ scan was done, and it was intermediate. Based on the clinical history, this is clearly not a presentation of thromboembolic disease, and my index of suspicion for thromboembolic disease is 0. Patient was placed on diuretics since admission antibiotics and bronchodilators, he was placed back on his usual dose of prednisone which is 5 mg daily, however I switched that to IV Solu-Medrol. Reevaluated today on 02/09/2017, patient is doing much better, breathing a lot easier. Hardly any cough no wheezing no shortness of breath. Chest x-ray continues to show some interstitial edema but slightly improved compared to baseline chest x-ray. On admission. Considering his renal profile, I will cut down his Lasix to 60 mg IV push twice a day instead of 3 times a day. The patient is seen again today 02/10/2017 in follow-up on the selective care unit. He is awake and alert in no acute distress. He denies any worsening shortness of breath, cough or congestion. No accurate I&O available. His renal function is slightly improved at 1.71. He is anxious to go home. Objective - Vital Signs Vital signs: Vital Signs Temp 97.1 F L 02/10/17 11:34 Pulse 78 02/10/17 12:00 Resp 18 02/10/17 11:34 BP 141/77 02/10/17 11:34 Pulse Ox 95 02/10/17 11:34 Intake & Output 02/09/17 02/10/17 02/10/17 18:59 06:59 18:59 Intake Total 780 550 720 Output Total 200 400 300 Balance 580 150 420 Weight 151.5 kg 152 kg Intake: Oral 780 550 720 Output: Urine 200 400 300 Other: Voiding Method Urinal Urinal Urinal # Voids 1 1 # Bowel Movements 0 - Exam GENERAL EXAM: Alert, comfortable in no apparent distress. HEAD: Normocephalic. EYES: Normal reaction of pupils, equal size. NOSE: Clear with pink turbinates. THROAT: No erythema or exudates. NECK: No masses, no JVD. CHEST: No chest wall deformity. LUNGS: Equal air entry with crackles in the posterior bases.. CVS: S1 and S2 normal with no audible murmurs, regular rhythm. ABDOMEN: No hepatosplenomegaly, normal bowel sounds, no guarding or rigidity. SPINE: No scoliosis or deformity SKIN: No rashes CENTRAL NERVOUS SYSTEM: No focal deficits, tone is normal in all 4 extremities. Extremities: There is trace peripheral edema. No clubbing, no cyanosis. Peripheral pulses are intact. - Labs CBC & Chem 7: 02/10/17 08:58 02/10/17 08:58 Labs: Abnormal Lab Results - Last 24 Hours (Table) 02/09/17 02/09/17 02/10/17 Range/Units 16:27 20:57 06:09 WBC (3.8-10.6) k/uL RBC (4.30-5.90) m/uL Hgb (13.0-17.5) gm/dL Hct (39.0-53.0) % MCH (25.0-35.0) pg MCHC (31.0-37.0) g/dL RDW (11.5-15.5) % Neutrophils # (1.3-7.7) k/uL Lymphocytes # (1.0-4.8) k/uL Chloride (98-107) mmol/L Carbon Dioxide (22-30) mmol/L BUN (9-20) mg/dL Creatinine (0.66-1.25) mg/dL Glucose (74-99) mg/dL POC Glucose (mg/dL) 186 H 281 H 235 H (75-99) mg/dL 02/10/17 02/10/17 02/10/17 Range/Units 08:58 08:58 11:42 WBC 11.8 H (3.8-10.6) k/uL RBC 3.96 L (4.30-5.90) m/uL Hgb 9.8 L (13.0-17.5) gm/dL Hct 33.2 L (39.0-53.0) % MCH 24.7 L (25.0-35.0) pg MCHC 29.5 L (31.0-37.0) g/dL RDW 19.2 H (11.5-15.5) % Neutrophils # 10.5 H (1.3-7.7) k/uL Lymphocytes # 0.8 L (1.0-4.8) k/uL Chloride 97 L (98-107) mmol/L Carbon Dioxide 31 H (22-30) mmol/L BUN 43 H (9-20) mg/dL Creatinine 1.71 H (0.66-1.25) mg/dL Glucose 213 H (74-99) mg/dL POC Glucose (mg/dL) 171 H (75-99) mg/dL Assessment and Plan Plan: Impression: 1 Shortness of breath secondary to congestive heart failure, suspect to be diastolic in nature, underlying COPD, and chronic right lower lobe atelectasis with previous lobectomy related to previous non-small cell lung cancer. 2 multiple comorbidities including COPD, paroxysmal atrial fibrillation, lungs CTA, type 2 diabetes, GERD, previous episode of GI bleeding, history of left lower extremity tibial fracture last year, chronic hidradenitis, morbid obesity Plan: The patient was seen and evaluated by Dr. Adame. The patient is improved clinically. We'll convert him to oral prednisone taper. Continue his other pulmonary medications. His home Lasix was 80 mg twice a day. Could be discharged home later today if cleared by the other consultants.
[2017-02-10 12:21] VITALS: PULSE 83
--- NOTE | 2017-02-10 12:46 | P.PN ---
Subjective Principal diagnosis: Shortness of breath This is a pleasant 66-year-old gentleman with history of diabetes, hypertension, hyperlipidemia, COPD, heart failure a stone diastolic dysfunction , paroxysmal atrial fibrillation, history of prior lobectomy for non-small Cell lung CA, history of depression, who presented to the hospital with symptoms of progressively worsening shortness of breath. Patient also had associated productive green sputum. He has been diuresing well on IV Lasix. He does state today that his breathing has improved significantly. He is quite eager to be discharged home today. Objective - Vital Signs Vital signs: Vital Signs Temp 97.1 F L 02/10/17 11:34 Pulse 83 02/10/17 12:00 Resp 18 02/10/17 12:00 BP 141/77 02/10/17 11:34 Pulse Ox 95 02/10/17 11:34 Intake & Output 02/09/17 02/10/17 02/10/17 18:59 06:59 18:59 Intake Total 780 550 720 Output Total 200 400 300 Balance 580 150 420 Weight 151.5 kg 152 kg Intake: Oral 780 550 720 Output: Urine 200 400 300 Other: Voiding Method Urinal Urinal Urinal # Voids 1 1 # Bowel Movements 0 - Exam PHYSICAL EXAMINATION: HEENT: Head is atraumatic, normocephalic. Pupils equal, round. Neck is supple. There is no elevated jugular venous pressure. HEART EXAMINATION: Heart S1, S2 normal. No murmur or gallop heard. CHEST EXAMINATION: Lungs clear to auscultation. ABDOMEN: Soft, nontender. Bowel sounds are heard. No organomegaly noted. EXTREMITIES: 2+ peripheral pulses with trace evidence of peripheral edema and no calf tenderness noted. NEUROLOGIC patient is awake, alert and oriented -3. . - Labs CBC & Chem 7: 02/10/17 08:58 02/10/17 08:58 Labs: Abnormal Lab Results - Last 24 Hours (Table) 02/09/17 02/09/17 02/10/17 Range/Units 16:27 20:57 06:09 WBC (3.8-10.6) k/uL RBC (4.30-5.90) m/uL Hgb (13.0-17.5) gm/dL Hct (39.0-53.0) % MCH (25.0-35.0) pg MCHC (31.0-37.0) g/dL RDW (11.5-15.5) % Neutrophils # (1.3-7.7) k/uL Lymphocytes # (1.0-4.8) k/uL Chloride (98-107) mmol/L Carbon Dioxide (22-30) mmol/L BUN (9-20) mg/dL Creatinine (0.66-1.25) mg/dL Glucose (74-99) mg/dL POC Glucose (mg/dL) 186 H 281 H 235 H (75-99) mg/dL 02/10/17 02/10/17 02/10/17 Range/Units 08:58 08:58 11:42 WBC 11.8 H (3.8-10.6) k/uL RBC 3.96 L (4.30-5.90) m/uL Hgb 9.8 L (13.0-17.5) gm/dL Hct 33.2 L (39.0-53.0) % MCH 24.7 L (25.0-35.0) pg MCHC 29.5 L (31.0-37.0) g/dL RDW 19.2 H (11.5-15.5) % Neutrophils # 10.5 H (1.3-7.7) k/uL Lymphocytes # 0.8 L (1.0-4.8) k/uL Chloride 97 L (98-107) mmol/L Carbon Dioxide 31 H (22-30) mmol/L BUN 43 H (9-20) mg/dL Creatinine 1.71 H (0.66-1.25) mg/dL Glucose 213 H (74-99) mg/dL POC Glucose (mg/dL) 171 H (75-99) mg/dL Assessment and Plan (1) Diastolic CHF, acute on chronic Status: Acute (2) Paroxysmal a-fib Status: Acute (3) Diabetes Status: Acute (4) HTN (hypertension) Status: Acute (5) Hyperlipemia Status: Acute (6) Pneumonia Status: Acute (7) Non-small cell carcinoma of lung Status: Acute Plan: From cardiology's perspective, we will discontinue the IV Lasix, discharge the patient home with Lasix 80 mg by mouth twice a day. Patient has a follow-up appointment already scheduled in the office which she has been advised to keep. DNP note has been reviewed, I agree with a documented findings and plan of care. Patient was seen and examined.
--- NOTE | 2017-02-10 14:19 | P.DS ---
Providers Date of admission: 02/08/17 04:14 Expected date of discharge: 02/10/17 Attending physician: Joel Flores Consults: 02/08/17 08:24 Consult Physician Urgent Consulting Provider: Ba Adame Consult Reason/Comments: PNEUMONIA/CHF Do you want consulting provider notified?: Yes 02/08/17 08:25 Consult Physician Urgent Consulting Provider: Ted Jeter Consult Reason/Comments: CHF Do you want consulting provider notified?: Yes 02/08/17 09:48 Consult Physician Urgent Consulting Provider: Javid Hardy Consult Reason/Comments: Humara and possible anticoagulation Do you want consulting provider notified?: Yes Primary care physician: [facility] Course: doug is a 66-year-old male, patient of Dr. 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 Patient presented to the emergency department with complaints of increased shortness of breath, productive cough, and increased leg edema. No history of fevers, chills, or chest pain. Chest x-ray suspicious for pulmonary edema with possible pneumonia. EKG on admission with evidence of atrial fibrillation controlled ventricular rate. WBC 23.4, hemoglobin 10.1, d-dimer elevated at 6.02, BUN 33, creatinine 1.8, magnesium 1.4 , troponin less than 0.0122, pro BNP 11,700, influenza type A and B negative. VQ scan with intermediate probability for pulmonary embolism. Bilateral ultrasound venous Doppler study of lower extremities negative for DVT. Patient was admitted to the selective care unit with consults to Dr. Adame for pulmonary service, cardiology service, and Dr. Hardy from infectious disease service. Patient improved significantly with diuresis, bronchodilators, and steroids. Infectious disease service evaluated patient and agreed that patient was okay to start anticoagulation in the form of Eliquis. Patient was to stable for discharge to home with home care from all [facility] with close follow-up in the outpatient setting. Discharge diagnoses: 1. Progressive shortness of breath suspect multifactorial: Acute on chronic diastolic heart failure, possible pneumonia, exacerbation of COPD, chronic right lower lobe atelectasis with previous lobectomy related to non-small cell lung cancer. 2. Paroxysmal atrial fibrillation. 3. Acute on chronic diastolic heart failure. 4. Hydradenitis supporative, chronic. 5. History of hypertension. 6. Diabetes mellitus type 2, controlled. 7. History of non-small cell lung cancer with right lower and middle lobectomy. 8. Acute on chronic renal failure, stage III, improved. 9. Anemia of chronic kidney disease. 10. Elevated d-dimer, present on admission, no suspicion for pulmonary embolism. 11. Leukocytosis, present on arrival, improved. 12. Hypomagnesemia. 13. Anemia of chronic disease. 14. Bilateral lower leg swelling, DVT ruled out. The above impression and plan have been discussed and directed by Dr Flores. Tino MEDEL acting as scribe for Dr. Flores. Pertinent Studies: Chest x-ray; pulmonary perfusion imaging; venous Doppler study; echocardiogram with Doppler; chest x-ray Patient Condition at Discharge: Fair Plan - Discharge Summary New Discharge Prescriptions: Apixaban [Eliquis] 5 mg PO BID #60 tab predniSONE 0 mg PO DIRECTED #30 tab Discharge Medication List Calcitriol [Rocaltrol] 0.25 mcg PO SUTH 06/06/16 [History] Citalopram Hydrobromide [CeleXA] 20 mg PO DAILY 08/13/16 [History] Ergocalciferol [Vitamin D2 (DRISDOL)] 50,000 unit PO [id number] 08/29/16 [History] Furosemide [Lasix] 80 mg PO BID 08/29/16 [History] Albuterol Nebulized [Ventolin Nebulized] 2.5 mg INHALATION RT-QID 10/23/16 [ History] Calcium Carbonate/Vitamin D3 [Calcium 600-Vit D3 200 Tablet] 1 tab PO BID [History] Ipratropium [place] [Atrovent Hfa] 2 puff INHALATION RT-QID PRN 10/23/16 [ History] Meclizine [Antivert] 25 mg PO Q8H PRN 10/23/16 [History] Multivitamins, Thera [Multivitamin (formulary)] 1 tab PO DAILY 10/23/16 [History ] Linagliptin [Tradjenta] 5 mg PO DAILY tablet 10/27/16 [Rx] Magnesium Oxide [Mag-Ox] 400 mg PO BID #60 tab 12/05/16 [Rx] Adalimumab [Humira Pen Crohn-Uc-Hs Starter] 40 mg SQ FR 02/08/17 [History] Albuterol Inhaler [Ventolin Hfa Inhaler] 1 - 2 puff INHALATION RT-Q6H PRN [History] Cephalexin [Keflex] 1,000 mg PO DAILY 02/08/17 [History] Cephalexin [Keflex] 500 mg PO HS 02/08/17 [History] Dakin's Solution 10 oz TOPICAL DIRECTED 02/08/17 [History] Diltiazem HCl [Cardizem LA] 360 mg PO DAILY 02/08/17 [History] Diphenoxylate HCl/Atropine [Lomotil] 1 tab PO TID PRN 02/08/17 [History] Fluticasone/Salmeterol [Advair 100-50 Diskus] 2 puff INHALATION RT-BID 02/08/17 [History] HYDROcodone/APAP 10-325MG [Joffre 10-325] 1 tab PO QID PRN 02/08/17 [History] Omeprazole [PriLOSEC] 20 mg PO BID 02/08/17 [History] Sildenafil Citrate [Viagra] 100 mg PO DAILY PRN 02/08/17 [History] Apixaban [Eliquis] 5 mg PO BID #60 tab 02/10/17 [Rx] predniSONE 0 mg PO DIRECTED #30 tab 02/10/17 [Rx] Follow up Appointment(s)/Referral(s): Joel Flores Jr, DO [Primary Care Provider] - 1-2 days [facility], [NON-STAFF] - [facility] [Provider Group] - 1 Week Ba Adame MD [STAFF PHYSICIAN] - 1 Week Patient Instructions/Handouts: Heart Failure (DC) Activity/Diet/Wound Care/Special Instructions: Please sheepskin pickler Eliquis in [facility] pharmacy. 30 day free coupon applied. Prior authorization for medication requested, if declined can get free samples through cardiology office. Discharge Disposition: HOME WITH HOME HEALTH SERVICES
[2017-02-10] MEDS ORDERED: FUROSEMIDE 80 MG TAB PO SCH (16:00)
--- NOTE | 2017-02-10 16:58 | P.PN ---
Subjective Principal diagnosis: Progressive shortness of breath 66-year-old male who is well-known to the infectious disease service with as many hospitalizations as well as his hidradenitis. He's had a couple hospitalizations in the last several months that included atrial fibrillation with nonsustained V. tach. He has underlying cardiac murmur. He's had vertigo and acute renal failure. He's had some time at the extended care facility and is now home. Doing relatively well. Initially the sudden onset of the significant shortness of breath which rapidly increased over several hours. Because of this EMS was called. The patient was wondering if EMS could simply drop off some oxygen so he could stay home. His of course neutropenia to come to hospital. In the emergency center he was diagnosed with significant congestive heart failure. With diuresis he is having improvement of his lower extremity edema and shortness of breath. Over still having some orthopnea and significant dyspnea with any exertion. He is denying chest pain at this time. The hidradenitis is now being treated with Humira injections at home. This is on Fridays. This has been occurring for the last couple of months now. There is been decreasing amount of drainage. His skin is becoming less erythematous and inflamed. The amount of drainage is also starting to improve. The family is pleased that there is showing some improvement given the many year history of lack of improvement. The patient has been on significant prior antibiotic therapy with cephalexin and doxycycline. He's had bouts of diarrhea that were not C. diff. And was having some overall improvement of his status until the profound shortness of breath. Now with extensive diuresis he feels considerably better. Shortness of breath is generally resolved. He's been up sitting walking and tolerating activity. Ready for discharge to home Objective - Vital Signs Vital signs: Vital Signs Temp 97.1 F L 02/10/17 11:34 Pulse 83 02/10/17 12:00 Resp 18 02/10/17 12:00 BP 141/77 02/10/17 11:34 Pulse Ox 95 02/10/17 11:34 Intake & Output 02/09/17 02/10/17 02/10/17 18:59 06:59 18:59 Intake Total 780 550 720 Output Total 200 400 300 Balance 580 150 420 Weight 151.5 kg 152 kg Intake: Oral 780 550 720 Output: Urine 200 400 300 Other: Voiding Method Urinal Urinal Urinal # Voids 1 1 # Bowel Movements 0 - Exam 66-year-old male with obesity who is short of breath with exertion while lying in bed HEENT: Anicteric conjunctiva are pink and moist nasal mucosa grossly intact without significant lesions, there is no thrush. Neck: The neck is supple without significant lymphadenopathy or thyromegaly. Lungs: Symmetrical air entry. Few expiratory wheezes. Basilar crackles no dullness or egophony Heart: Irregular with an audible S1 and S2 soft S4 no click or rub 2/6 systolic murmur left sternal border Abdomen: Obese Positive bowel sounds soft and nontender without palpable masses or organomegaly. There was no guarding or rebound. Extremities: The upper extremities have excellent pulses they are symmetric, no significant petechiae or telangiectasia. No splinter hemorrhages were noted. Lower extremities show evidence of the edema that showing some improvement. Pulses were 2+ and symmetric. Neuro: Awake alert oriented to person place and time. There are no acute new gross focal sensory motor deficits. Skin evidence of the extensive hidradentitis of the buttocks and upper thighs though markedly improved from the last evaluation. The skin shows evidence of less denseness of erythema. There is less drainage although there still is quite a bit of the foul drainage characteristic of the disease. Not having much tenderness. Only a small amount of drainage at the base of the scrotum that was quite copious in the past. - Labs CBC & Chem 7: 02/10/17 08:58 02/10/17 08:58 Labs: Abnormal Lab Results - Last 24 Hours (Table) 02/09/17 02/10/17 02/10/17 Range/Units 20:57 06:09 08:58 WBC 11.8 H (3.8-10.6) k/uL RBC 3.96 L (4.30-5.90) m/uL Hgb 9.8 L (13.0-17.5) gm/dL Hct 33.2 L (39.0-53.0) % MCH 24.7 L (25.0-35.0) pg MCHC 29.5 L (31.0-37.0) g/dL RDW 19.2 H (11.5-15.5) % Neutrophils # 10.5 H (1.3-7.7) k/uL Lymphocytes # 0.8 L (1.0-4.8) k/uL Chloride (98-107) mmol/L Carbon Dioxide (22-30) mmol/L BUN (9-20) mg/dL Creatinine (0.66-1.25) mg/dL Glucose (74-99) mg/dL POC Glucose (mg/dL) 281 H 235 H (75-99) mg/dL 02/10/17 02/10/17 Range/Units 08:58 11:42 WBC (3.8-10.6) k/uL RBC (4.30-5.90) m/uL Hgb (13.0-17.5) gm/dL Hct (39.0-53.0) % MCH (25.0-35.0) pg MCHC (31.0-37.0) g/dL RDW (11.5-15.5) % Neutrophils # (1.3-7.7) k/uL Lymphocytes # (1.0-4.8) k/uL Chloride 97 L (98-107) mmol/L Carbon Dioxide 31 H (22-30) mmol/L BUN 43 H (9-20) mg/dL Creatinine 1.71 H (0.66-1.25) mg/dL Glucose 213 H (74-99) mg/dL POC Glucose (mg/dL) 171 H (75-99) mg/dL Laboratory Results WBC 11.8 k/uL (3.8-10.6) H 02/10/17 08:58 RBC 3.96 m/uL (4.30-5.90) L 02/10/17 08:58 Hgb 9.8 gm/dL (13.0-17.5) L 02/10/17 08:58 Hct 33.2 % (39.0-53.0) L 02/10/17 08:58 MCV 83.9 fL (80.0-100.0) 02/10/17 08:58 MCH 24.7 pg (25.0-35.0) L 02/10/17 08:58 MCHC 29.5 g/dL (31.0-37.0) L 02/10/17 08:58 RDW 19.2 % (11.5-15.5) H 02/10/17 08:58 Plt Count 317 k/uL (150-450) 02/10/17 08:58 Neutrophils % 89 % 02/10/17 08:58 Lymphocytes % 7 % 02/10/17 08:58 Monocytes % 3 % 02/10/17 08:58 Eosinophils % 0 % 02/10/17 08:58 Basophils % 0 % 02/10/17 08:58 Neutrophils # 10.5 k/uL (1.3-7.7) H 02/10/17 08:58 Lymphocytes # 0.8 k/uL (1.0-4.8) L 02/10/17 08:58 Monocytes # 0.4 k/uL (0-1.0) 02/10/17 08:58 Eosinophils # 0.0 k/uL (0-0.7) 02/10/17 08:58 Basophils # 0.0 k/uL (0-0.2) 02/10/17 08:58 Hypochromasia Marked 02/10/17 08:58 Anisocytosis Slight 02/10/17 08:58 Microcytosis Slight 02/10/17 08:58 PT 10.5 sec (9.0-12.0) 02/08/17 00:35 INR 1.0 (<1.1) 02/08/17 00:35 APTT 25.5 sec (22.0-30.0) 02/08/17 00:35 D-Dimer 6.02 mg/L FEU (<0.60) H 02/08/17 00:35 Sodium 139 mmol/L (137-145) 02/10/17 08:58 Potassium 4.9 mmol/L (3.5-5.1) 02/10/17 08:58 Chloride 97 mmol/L (98-107) L 02/10/17 08:58 Carbon Dioxide 31 mmol/L (22-30) H 02/10/17 08:58 Anion Gap 11 mmol/L 02/10/17 08:58 BUN 43 mg/dL (9-20) H 02/10/17 08:58 Creatinine 1.71 mg/dL (0.66-1.25) H 02/10/17 08:58 Est GFR (MDRD) Af Amer 48 (>60 ml/min/1.73 sqM) 02/10/17 08:58 Est GFR (MDRD) Non-Af 40 (>60 ml/min/1.73 sqM) 02/10/17 08:58 Glucose 213 mg/dL (74-99) H 02/10/17 08:58 POC Glucose (mg/dL) 171 mg/dL (75-99) H 02/10/17 11:42 POC Glu Production Support Specialist ID Alana Nance 02/10/17 11:[address] Glu mg/dL 131 mg/dL 02/09/17 06:20 Hemoglobin A1c 6.2 % (4.2-6.1) H 02/09/17 06:20 Plasma Lactic Acid Jose Raul 1.1 mmol/L (0.7-2.0) 02/08/17 00:35 Calcium 8.8 mg/dL (8.4-10.2) 02/10/17 08:58 Magnesium 1.9 mg/dL (1.6-2.3) 02/09/17 06:20 Total Bilirubin 0.5 mg/dL (0.2-1.3) 02/08/17 00:35 AST 26 U/L (17-59) 02/08/17 00:35 ALT 30 U/L (21-72) 02/08/17 00:35 Alkaline Phosphatase 101 U/L (38-126) 02/08/17 00:35 Troponin I <0.012 ng/mL (0.000-0.034) 02/08/17 15:34 NT-Pro-B Natriuret Pep 04528 pg/mL 02/08/17 00:35 Total Protein 8.1 g/dL (6.3-8.2) 02/08/17 00:35 Albumin 3.3 g/dL (3.5-5.0) L 02/08/17 00:35 Influenza Type A RNA Not Detected (Not Detectd) 02/08/17 03:13 Influenza Type B (PCR) Not Detected (Not Detectd) 02/08/17 03:13 Microbiology 02/08/17 00:35 Blood Blood Culture - Preliminary No Growth after 48 hours Assessment and Plan (1) Hidradenitis suppurativa Narrative/Plan: Pleasant 66-year-old male who has long-standing history hidradentis mostly involving his buttocks and upper thighs with copious amounts of drainage is been initiated to Humira therapy. His been tolerating this very well up till now. There is been decreasing amounts of drainage in improvement of the skin quality. The improvement is incremental at this time. Patient has been seen by cardiology and initiation of Elliqus has been requested and the patient is quite concerned. Last time he was on this anticoagulant he had significant bleeding from his profound sinus tracts of his skin. Now since he's had some response to Humira therapy he may be better tolerating the possibility of anticoagulation. And will consider at least attempting anticoagulation again. He will be monitored very closely. The area is not grossly infected and is not needed further antibiotic therapy He does have significant leukocytosis is likely multifactorial including the acute on chronic systolic heart failure Influenza testing was negative There is evidence of increased creatinine from his baseline is being monitored closely. Patient is being followed by pulmonary critical care. Exacerbation of his underlying COPD. Receiving tapering doses of methylprednisolone breathing treatments and is also received antibiotic therapy with cephalexin. Blood cultures are negative. He's had a marked improvement with his diuretic therapy. Discharge home today. Follow-up in the office for ongoing evaluation of his Humira therapy. Status: Chronic (2) Chronic a-fib Status: Acute (3) Acute on chronic systolic heart failure Status: Acute
[2017-02-11] MEDS ORDERED: predniSONE 20 MG TAB PO SCH (09:00)
== END 2017-02-10 15:29 | disposition home health service (06) | DRG 291 ==
LOC: EC 00:31 → 6SEL 04:14
PROVIDERS: ADMIT Family Medicine; ATTEND Family Medicine
DX: I13.0 Hypertensive heart and chronic kidney disease with heart failure and stage 1 through stage 4 chronic kidney disease, or unspecified chronic kidney disease (principal); I50.33 Acute on chronic diastolic (congestive) heart failure; N17.9 Acute kidney failure, unspecified; I47.2 Ventricular tachycardia; J18.9 Pneumonia, unspecified organism; K50.90 Crohn's disease, unspecified, without complications; J44.0 Chronic obstructive pulmonary disease with (acute) lower respiratory infection; J44.1 Chronic obstructive pulmonary disease with (acute) exacerbation; E83.42 Hypomagnesemia; E11.22 Type 2 diabetes mellitus with diabetic chronic kidney disease; I48.0 Paroxysmal atrial fibrillation; I42.9 Cardiomyopathy, unspecified; N18.3 Chronic kidney disease, stage 3 (moderate); L73.2 Hidradenitis suppurativa; D63.1 Anemia in chronic kidney disease; H91.90 Unspecified hearing loss, unspecified ear; K21.9 Gastro-esophageal reflux disease without esophagitis; J45.909 Unspecified asthma, uncomplicated; E78.5 Hyperlipidemia, unspecified; F32.9 Major depressive disorder, single episode, unspecified; E66.01 Morbid (severe) obesity due to excess calories; Z68.38 Body mass index [BMI] 38.0-38.9, adult; Z90.2 Acquired absence of lung [part of]; Z85.118 Personal history of other malignant neoplasm of bronchus and lung; Z90.49 Acquired absence of other specified parts of digestive tract; Z87.891 Personal history of nicotine dependence; Z87.11 Personal history of peptic ulcer disease; Z79.51 Long term (current) use of inhaled steroids; Z79.52 Long term (current) use of systemic steroids; Z79.899 Other long term (current) drug therapy
CPT/HCPCS: 36415; 71010; 78582; 80048; 80053; 83036; 83605; 83735; 83880; 84484; 85025; 85379; 85610; 85730; 87040; 87502; 93005; 93306; 93970; 94640; 96365; 96375; 99285

== ENCOUNTER → 2017-06-02 | Outpatient (CLI) | payer MEDICARE ==
[2017-06-02 12:27] LABS: Anisocytosis Slight; Basophils # (A) 0.1 k/uL (0-0.2); Basophils % (A) 0 %; CH 23.9; CHCM 29.4; Eosinophils # (A) 0.2 k/uL (0-0.7); Eosinophils % (A) 1 %; HCT 34.3 % (39.0-53.0); HDW 2.54; HGB 10.7 gm/dL (13.0-17.5); Hypochromasia Marked; Luc # (Auto) 0.22; Luc % (Auto) 1; Lymphocytes # (A) 1.7 k/uL (1.0-4.8); Lymphocytes % (A) 9 %; MCH 25.5 pg (25.0-35.0); MCHC 31.3 g/dL (31.0-37.0); MCV 81.5 fL (80.0-100.0); Mean Platelet Volume 6.8; Microcytosis Slight; Monocytes # (A) 0.7 k/uL (0-1.0); Monocytes % (A) 4 %; Neutrophils # (A) 16.1 k/uL (1.3-7.7); Neutrophils % (A) 85 %; RDW 17.5 % (11.5-15.5); WBC (Perox) 19.48
[2017-06-02 12:30] LABS: Potassium 5.1 mmol/L (3.5-5.1)
[2017-06-02 12:53] LABS: Magnesium 0.9 mg/dL (1.6-2.3)
== END ==
LOC: RADCTMAIN 11:51
PROVIDERS: ATTEND Internal Medicine Hematology & Oncology
DX: C34.31 Malignant neoplasm of lower lobe, right bronchus or lung (principal)
CPT/HCPCS: 80051; 82565; 83735; 84520; 85025

== ENCOUNTER → 2017-06-21 | Outpatient (CLI) | payer MEDICARE ==
--- NOTE | 2017-06-21 14:43 | CT ---
EXAMINATION TYPE: CT ChestAbdPelvis wo con DATE OF EXAM: 06/21/2017 COMPARISON: 12/27/2016 HISTORY: 67-year-old male lung CA TECHNIQUE: Contiguous axial scanning of the chest, abdomen, and pelvis without IV contrast. Coronal a nd sagittal reconstructions performed. CT DLP: 1717 mGycm Automated exposure control for dose reduction was used. FINDINGS: CHEST: Heart is borderline enlarged without pericardial effusion. Extensive coronary vascular calcifications are a marker for coronary artery disease. Mildly aneurysmal ascending aorta and 4.0 cm with mild to moderate atherosclerotic arch calcification s and conventional arch vessel branching anatomy. Mild aneurysm upper descending thoracic aorta 3.4 c m and distal descending thoracic aorta at 3.2 cm. Large caliber to the main right and left pulmonary arteries 3.5 and 3.1 cm, respectively, compatible with underlying pulmonary arterial hypertension. No thoracic lymphadenopathy by CT size criteria. Mild asymmetric right-sided gynecomastia. Status post right middle and right lower lobectomy. There is fluid and debris filling the stump of th e bronchus intermedius and continued centrilobular nodularity in the mid to lower right lung. Allowing for noncontrast technique which limits assessment of the mediastinal and hilar structures, n o new mass is identified. Trace right effusion appears chronic. ABDOMEN: Noncontrast appearance of the liver, adrenal glands, spleen, atrophic pancreas show no gross abnormal ity. Multiple renal cysts redemonstrated, largest in the right kidney measuring 5.9 cm, unchanged. A left band device is present. No dilated small bowel, free fluid, or free air. No mesenteric or retroperitoneal lymphadenopathy. Pelvis: Bladder is urine distended. Prostate gland measures 4.2 cm wide. No abnormal fluid collection in the pelvis. Scattered prominent pelvic lymph nodes measuring up to 1.7 cm along the left external iliac c sendy are stable and likely reactive/post inflammatory. Bones: Mild diffuse stranding throughout the contiguous fat especially in the dependent portion suggests mil d diffuse anasarca type changes. Moderate degenerative changes at the hips in a degenerated levoconve x scoliosis of the lumbar spine. Prominent endplate Schmorl's nodes at L1 and L2 vertebral bodies wit h grade 1 anterolisthesis at L2-L3. Old right-sided rib fracture deformities/thoracotomy change. IMPRESSION: 1. STABLE RIGHT MIDDLE AND RIGHT LOWER LOBECTOMIES. THERE IS CONTINUED FLUID AND DEBRIS WITHIN THE ST UMP OF THE BRONCHUS INTERMEDIUS AND INTRALOBULAR NODULES THROUGHOUT THE MID AND LOWER RIGHT LUNG. COR RELATE FOR CHRONIC ASPIRATION. 2. ALLOWING FOR NONCONTRAST TECHNIQUE, NO RECURRENT MASS OR NEW LYMPHADENOPATHY IS SEEN. 3. CAD, MILDLY ANEURYSMAL THORACIC AORTA, AND PULMONARY ARTERIAL HYPERTENSION.
== END | disposition home or self-care (01) ==
LOC: RADCTMAIN 13:39
PROVIDERS: ATTEND Internal Medicine Hematology & Oncology
DX: C34.31 Malignant neoplasm of lower lobe, right bronchus or lung (principal); I25.10 Atherosclerotic heart disease of native coronary artery without angina pectoris; I27.2 Other secondary pulmonary hypertension; I71.2 Thoracic aortic aneurysm, without rupture
CPT/HCPCS: 71250; 74176

== ENCOUNTER 2017-07-21 17:03 | Inpatient (IN) | payer MEDICARE ==
--- NOTE | 2017-07-21 17:52 | ED ---
General Adult HPI - General Chief complaint: Skin/Abscess/Foreign Body Stated complaint: FB IN THROAT Time Seen by Provider: 07/21/17 17:45 Source: patient, family, RN notes reviewed, old records reviewed Mode of arrival: wheelchair Limitations: no limitations - History of Present Illness Initial comments: This is a 67-year-old male the ER for evaluation. Patient signed by Dr. Mcgee with tracheal foreign body, patient complaining of mild cough with shortness of breath. Mild pain. No significant respiratory distress. Patient had outpatient CAT scan showing him results and hence came to emergency room. - Related Data Home Medications Medication Instructions Recorded Confirmed Calcitriol [Rocaltrol] 0.25 mcg PO TH 06/06/16 07/21/17 Albuterol Nebulized [Ventolin 2.5 mg INHALATION RT-QID PRN 10/23/16 07/21/17 Nebulized] Calcium Carbonate/Vitamin D3 1 tab PO BID 10/23/16 07/21/17 [Calcium 600-Vit D3 200 Tablet] Ipratropium [place] [Atrovent Hfa] 2 puff INHALATION RT-QID PRN 10/23/16 Meclizine [Antivert] 25 mg PO Q8H PRN 10/23/16 07/21/17 Multivitamins, Thera [Multivitamin 1 tab PO DAILY@1200 10/23/16 07/21/17 (formulary)] Adalimumab [Humira Pen Crohn-Uc-Hs 40 mg SQ FR 02/08/17 07/21/17 Starter] Albuterol Inhaler [Ventolin Hfa 1 - 2 puff INHALATION RT-Q6H PRN 02/08/17 Inhaler] Cephalexin [Keflex] 1,000 mg PO QAM 02/08/17 07/21/17 Cephalexin [Keflex] 500 mg PO HS 02/08/17 07/21/17 Dakin's Solution 10 oz TOPICAL DIRECTED 02/08/17 07/21/17 Diltiazem HCl [Cardizem LA] 360 mg PO DAILY 02/08/17 07/21/17 Diphenoxylate HCl/Atropine 1 tab PO TID PRN 02/08/17 07/21/17 [Lomotil] HYDROcodone/APAP 10-325MG [[place] 2 tab PO BID PRN 02/08/17 07/21/17 10-325] Omeprazole [PriLOSEC] 20 mg PO BID 02/08/17 07/21/17 Sildenafil Citrate [Viagra] 100 mg PO DAILY PRN 02/08/17 07/21/17 Citalopram Hydrobromide [CeleXA] 40 mg PO DAILY 07/21/17 07/21/17 Furosemide [Lasix] 80 mg PO BID 07/21/17 07/21/17 Metolazone [Zaroxolyn] 5 mg PO MOWEFR 07/21/17 07/21/17 Metoprolol Succinate [Toprol XL] 12.5 mg PO BID 07/21/17 07/21/17 Spironolactone [Aldactone] 25 mg PO DAILY 07/21/17 07/21/17 predniSONE 10 mg PO DAILY 07/21/17 07/21/17 Previous Rx's Medication Instructions Recorded Linagliptin [Tradjenta] 5 mg PO DAILY tablet 10/27/16 Allergies Allergy/AdvReac Type Severity Reaction Status Date / Time clindamycin AdvReac Diarrhea Verified 07/21/17 17:57 Review of Systems ROS Statement: Those systems with pertinent positive or pertinent negative responses have been documented in the HPI. ROS Other: All systems not noted in ROS Statement are negative. Past Medical History Past Medical History: Atrial Fibrillation, Asthma, Cancer, Diabetes Mellitus, Eye Disorder, GERD/Reflux, GI Bleed, Hearing Disorder / Deafness, Pneumonia, Renal Disease, Respiratory Disorder, Skin Disorder Additional Past Medical History / Comment(s): renal failure, lung CA, cardiac arrythmia, ulcer,pt has hydradenitis on b/l legs, thighs weep and bandages them daily, left leg tib/\fib fx 08/12/16. was in [facility] for rehab, went home. History of Any Multi-Drug Resistant Organisms: None Reported Past Surgical History: Appendectomy, Cholecystectomy, Orthopedic Surgery Additional Past Surgical History / Comment(s): lower and middle lobe of right lung removed due to cancer, lap band, UVP3, cyst removal off hip, surgery for perforated duodenal ulcer Past Anesthesia/Blood Transfusion Reactions: No Reported Reaction Past Psychological History: Depression Smoking Status: Former smoker Past Alcohol Use History: None Reported Past Drug Use History: None Reported - Past Family History Father Family Medical History: Cancer, Diabetes Mellitus, Liver Disease Mother Family Medical History: Cancer, Thyroid Disorder General Exam Limitations: no limitations General appearance: alert, in no apparent distress Head exam: Present: atraumatic, normocephalic, normal inspection Eye exam: Present: normal appearance, PERRL, EOMI. Absent: scleral icterus, conjunctival injection, periorbital swelling ENT exam: Present: normal exam, mucous membranes moist Neck exam: Present: normal inspection. Absent: tenderness, meningismus, lymphadenopathy Respiratory exam: Present: normal lung sounds bilaterally. Absent: respiratory distress, wheezes, rales, rhonchi, stridor Cardiovascular Exam: Present: regular rate, normal rhythm, normal heart sounds. Absent: systolic murmur, diastolic murmur, rubs, gallop, clicks GI/Abdominal exam: Present: soft, normal bowel sounds. Absent: distended, tenderness, guarding, rebound, rigid Extremities exam: Present: normal inspection, full ROM, normal capillary refill. Absent: tenderness, pedal edema, joint swelling, calf tenderness Back exam: Present: normal inspection Neurological exam: Present: alert, oriented X3, CN II-XII intact Psychiatric exam: Present: normal affect, normal mood Skin exam: Present: warm, dry, intact, normal color. Absent: rash Course Vital Signs 07/21/17 07/21/17 17:37 18:41 Temperature 98.9 F Pulse Rate 86 92 Respiratory 18 20 Rate Blood Pressure 112/67 101/55 O2 Sat by Pulse 94 L 91 L Oximetry - Reevaluation(s) Reevaluation #1: 07/21/17 19:[address] Ryan weeks patient Medical Decision Making - Medical Decision Making 67 mallei after evaluation of tracheal foreign body. No acute distress, patient will be admitted for pulmonology evaluation and treatment Disposition Clinical Impression: Foreign body in trachea Disposition: ADMITTED IP TO THIS HOSP Condition: Stable Referrals: Joel Flores Jr, [Primary Care Provider] - 1-2 days
[2017-07-21] MEDS ORDERED: SODIUM CHLORIDE 0.9% 1,000 ML IV ONE (19:28)
[2017-07-21] MEDS ORDERED: MECLIZINE 25 MG TAB PO PRN (20:56)
[2017-07-21] MEDS ORDERED: HYDROcodone/APAP 10-325MG 1 EACH TAB PO PRN (20:56)
[2017-07-21] MEDS ORDERED: NON-FORMULARY DRUG (Ipratropium Bromide [Atrovent Hfa] 2 PUFF) INHALATION PRN (20:56)
[2017-07-21] MEDS ORDERED: ALBUTEROL NEBULIZED 2.5 MG/3 ML INHALATION PRN ×2 (20:56)
[2017-07-21] MEDS ORDERED: NON-FORMULARY DRUG (Sildenafil Citrate [Viagra] 100 MG) PO PRN (20:56)
[2017-07-21] MEDS ORDERED: CEPHALEXIN 500 MG CAP PO SCH (21:00)
[2017-07-21] MEDS ORDERED: SODIUM HYPOCHLORITE 0.5% 480 ML BOT MISCELLANE SCH (21:00)
[2017-07-21] MEDS ORDERED: METOLAZONE 5 MG TAB PO SCH (21:00)
[2017-07-21] MEDS: CALCIUM CARB-VIT D 500MG-200UN 1 EACH TAB PO SCH (21:42)
[2017-07-21] MEDS: METOPROLOL SUCCINATE (ER) 25 MG TAB.ER.24H PO SCH (21:42)
[2017-07-21] MEDS: FUROSEMIDE 80 MG TAB PO SCH (21:42)
[2017-07-21] MEDS ORDERED: guaiFENesin 600 MG TABLET.ER PO SCH (22:00)
[2017-07-21] MEDS: DIPHENOX-ATROP 2.5-0.025 MG 1 EACH TAB PO PRN (22:27)
[2017-07-21] MEDS: guaiFENesin 600 MG TABLET.ER PO SCH (22:50)
[2017-07-22] MEDS: IPRATROPIUM-ALBUTEROL 3 ML NEB INHALATION PRN ×3 (00:01→12:01)
[2017-07-22] MEDS: METOPROLOL SUCCINATE (ER) 25 MG TAB.ER.24H PO SCH (07:24)
[2017-07-22] MEDS: DIPHENOX-ATROP 2.5-0.025 MG 1 EACH TAB PO PRN (07:24)
[2017-07-22 07:26] VITALS: RESP 16
[2017-07-22] MEDS ORDERED: PANTOPRAZOLE 40 MG TABLET PO SCH (07:30)
[2017-07-22 07:31] LABS: Glucose,Whole Blood 106 mg/dL (75-99)
[2017-07-22] MEDS ORDERED: LINAGLIPTIN 5 MG TABLET PO SCH (09:00)
[2017-07-22] MEDS ORDERED: ALLOPURINOL 100 MG TAB PO SCH (09:00)
[2017-07-22] MEDS ORDERED: SPIRONOLACTONE 25 MG TAB PO SCH (09:00)
[2017-07-22] MEDS ORDERED: DILTIAZEM CD 180 MG CAP.ER.24H PO SCH (09:00)
[2017-07-22] MEDS ORDERED: CEPHALEXIN 500 MG CAP PO SCH (09:00)
[2017-07-22] MEDS ORDERED: CITALOPRAM HYDROBROMIDE 20 MG TAB PO SCH (09:00)
[2017-07-22] MEDS ORDERED: predniSONE 10 MG TAB PO SCH (09:00)
[2017-07-22] MEDS ORDERED: PROPOFOL 10 MG/ML 20 ML VIAL IV ONE (10:28)
[2017-07-22] MEDS ORDERED: MIDAZOLAM 2 MG/2 ML VIAL ONE (10:28)
[2017-07-22] MEDS ORDERED: fentaNYL (PF) 50 MCG/ML 2 ML AMP ONE (10:28)
[2017-07-22] MEDS ORDERED: LIDOCAINE 1% INJ 10MG/ML (20 ML MDV) ONE (10:28)
[2017-07-22] MEDS ORDERED: KETAMINE 10 MG/ML 20 ML VIAL ONE (10:28)
[2017-07-22] MEDS ORDERED: LIDOCAINE 2% INJ 20 MG/ML INTRATRACH ONE (10:46)
[2017-07-22] MEDS ORDERED: IV FLUID CONTINUATION 1,000 ML IV ONE (10:49)
--- NOTE | 2017-07-22 10:54 | P.CNPUL ---
History of Present Illness Consult date: 07/22/17 Reason for consult: cough History of present illness: Male patient who was admitted through emergency department yesterday because of increased cough and shortness of breath. The patient has been thought to have aspirated his pills. This occurred approximately 3 days ago. He was referred to [facility] with a CAT scan of the chest was done and it showed abnormalities within the distal trachea and the left mainstem bronchi suggestive of foreign body. Based on that, the patient was admitted and a bronchoscopy for airway inspection will be done today. He is known to have previous history of non-small cell lung cancer and he has undergone previous right middle lobe sized right lower lobe resection. No fever. No chills. No significant hemoptysis. No pleurisy. Review of Systems Constitutional: Denies chills, Denies fever Eyes: denies blurred vision, denies bulging eye, denies decreased vision Ears: deny: decreased hearing, ear discharge, earache Ears, nose, mouth and throat: Denies headache, Denies sore throat Cardiovascular: Reports shortness of breath Respiratory: Reports cough Gastrointestinal: Denies abdominal pain, Denies diarrhea, Denies nausea, Denies vomiting Musculoskeletal: Denies myalgias Musculoskeletal: absent: ankle pain, ankle stiffness, ankle swelling Integumentary: Denies pruritus, Denies rash Neurological: Denies numbness, Denies weakness Psychiatric: Denies anxiety, Denies depression Endocrine: Denies fatigue, Denies weight change Past Medical History Past Medical History: Atrial Fibrillation, Asthma, Cancer, Diabetes Mellitus, Eye Disorder, GERD/Reflux, GI Bleed, Hearing Disorder / Deafness, Renal Disease , Respiratory Disorder, Skin Disorder Additional Past Medical History / Comment(s): Chronic renal failure, non-small cell lung cancer with a previous right middle lobe/right lower lobe resection, hydradenitis, obesity, chronic atrial fibrillation, diabetes mellitus, acid reflux, hearing impairment, previous history of ulceration related to hydradenitis, History of Any Multi-Drug Resistant Organisms: None Reported Past Surgical History: Appendectomy, Cholecystectomy, Orthopedic Surgery Additional Past Surgical History / Comment(s): Right middle lobe/right lower lobe resection for non-small cell lung cancer, lap band, , UVP3, cyst removal off hip, surgery for perforated duodenal ulcer, ORIF for a left tib/fib fracture Past Anesthesia/Blood Transfusion Reactions: No Reported Reaction Past Psychological History: Depression Smoking Status: Former smoker Past Alcohol Use History: None Reported Additional Past Alcohol Use History / Comment(s): Patient was a smoker of 2-1/2 3 packs per day for 47 years, QUIT 4-5 YEARS AGO. He denies any medical marijuana, marijuana, street drug or alcohol use. Patient CURRENTLY AT [facility]. He has been on disability since 1990. THRU HIS WORK sustained lead poisoning there in 1971. 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 Past Drug Use History: None Reported - Past Family History Father Family Medical History: Cancer, Diabetes Mellitus, Liver Disease Mother Family Medical History: Cancer, Thyroid Disorder Medications and Allergies Home Medications Medication Instructions Recorded Confirmed Type Calcitriol [Rocaltrol] 0.25 mcg PO TH 06/06/16 07/21/17 History Albuterol Nebulized [Ventolin 2.5 mg INHALATION RT-QID PRN 10/23/16 07/21/17 History Nebulized] Calcium Carbonate/Vitamin D3 1 tab PO BID 10/23/16 07/21/17 History [Calcium 600-Vit D3 200 Tablet] Ipratropium [place] [Atrovent Hfa] 2 puff INHALATION RT-QID PRN 10/23/16 History Meclizine [Antivert] 25 mg PO Q8H PRN 10/23/16 07/21/17 History Multivitamins, Thera [Multivitamin 1 tab PO DAILY@1200 10/23/16 07/21/17 History (formulary)] Linagliptin [Tradjenta] 5 mg PO DAILY tablet 10/27/16 07/21/17 Rx Adalimumab [Humira Pen Crohn-Uc-Hs 40 mg SQ FR 02/08/17 07/21/17 History Starter] Albuterol Inhaler [Ventolin Hfa 1 - 2 puff INHALATION RT-Q6H PRN 02/08/17 History Inhaler] Cephalexin [Keflex] 1,000 mg PO QAM 02/08/17 07/21/17 History Cephalexin [Keflex] 500 mg PO HS 02/08/17 07/21/17 History Dakin's Solution 10 oz TOPICAL DIRECTED 02/08/17 07/21/17 History Diltiazem HCl [Cardizem LA] 360 mg PO DAILY 02/08/17 07/21/17 History Diphenoxylate HCl/Atropine 1 tab PO TID PRN 02/08/17 07/21/17 History [Lomotil] HYDROcodone/APAP 10-325MG [[place] 2 tab PO BID PRN 02/08/17 07/21/17 History 10-325] Omeprazole [PriLOSEC] 20 mg PO BID 02/08/17 07/21/17 History Sildenafil Citrate [Viagra] 100 mg PO DAILY PRN 02/08/17 07/21/17 History Citalopram Hydrobromide [CeleXA] 40 mg PO DAILY 07/21/17 07/21/17 History Furosemide [Lasix] 80 mg PO BID 07/21/17 07/21/17 History Metolazone [Zaroxolyn] 5 mg PO MOWEFR 07/21/17 07/21/17 History Metoprolol Succinate [Toprol XL] 12.5 mg PO BID 07/21/17 07/21/17 History Spironolactone [Aldactone] 25 mg PO DAILY 07/21/17 07/21/17 History predniSONE 10 mg PO DAILY 07/21/17 07/21/17 History Allergies Allergy/AdvReac Type Severity Reaction Status Date / Time clindamycin AdvReac Diarrhea Verified 07/21/17 17:57 Physical Exam Vitals: Vital Signs Temp Pulse Pulse Resp BP BP Pulse Ox 07/22/17 09:09 88 07/22/17 08:59 88 07/22/17 07:00 97.3 F L 90 16 109/72 94 L 07/22/17 03:43 98.1 F 90 17 118/71 92 L 07/22/17 00:13 96 07/22/17 00:03 92 07/21/17 20:11 98.1 F 92 18 119/76 93 L 07/21/17 18:41 92 20 101/55 91 L 07/21/17 17:37 98.9 F 86 18 112/67 94 L Intake and Output 07/21/17 07/22/17 07/22/17 22:59 06:59 14:59 Intake Total 0 50 240 Output Total 400 100 200 Balance -400 -50 40 Intake: Oral 0 50 240 Output: Urine 400 100 200 Other: Voiding Method Toilet # Voids 1 Weight 135.624 kg The patient appeared well nourished and normally developed. Vital signs as documented. Head exam is unremarkable. No scleral icterus or corneal arcus noted. Neck is without jugular venous distension, thyromegaly, or carotid bruits. Carotid upstrokes are brisk bilaterally. Lungs are diminished breath sounds bilaterally along with some scattered rhonchi and suspected expiratory wheezes.. Cardiac exam reveals the PMI to be normally sized and situated. Rhythm is regular. First and second heart sounds normal. No murmurs, rubs or gallops. Abdominal exam reveals normal bowel sounds, no masses, no organomegaly and no aortic enlargement. Extremities are nonedematous and both femoral and pedal pulses are normal. Results - Laboratory Findings Abnormal lab findings: Abnormal Labs 07/22/17 07:17 POC Glucose (mg/dL) 106 H - Diagnostic Findings CT scan - chest: image reviewed Assessment and Plan Plan: Assessment 1 suspected aspiration with secondary cough and dyspnea, CAT scan of the chest was reviewed and there is a suspicious for body the distal trachea 2 COPD 3 chronic renal failure 4 non-small cell lung cancer the previous right middle lobe/right lower lobe resection 5 hydradenitis suppurativa 6 chronic immunosuppression maintained on Humira and he is been chronically maintained on Keflex 7 chronic atrial fibrillation, current rhythm is sinus 8 diabetes mellitus 9 chronic impaired hearing 10 obesity with a previous history of LAP-BAND Plan Proceed with a flexible bronchoscopy and removal of foreign bodies.
--- NOTE | 2017-07-22 10:59 | P.PCN ---
Date of Procedure: 07/22/17 Preoperative Diagnosis: Suspected foreign body Postoperative Diagnosis: Mucous plug/respiratory secretions occupying the distal trachea and bilateral mainstem bronchi, no evidence of any foreign bodies identified. Procedure(s) Performed: Flexible bronchoscopy, therapeutic it was suctioning Implants: Anesthesia: MAC Surgeon: Anupam Mckeon Estimated Blood Loss (ml): 0 Pathology: other Condition: stable Disposition: same day Indications for Procedure: Suspected foreign body within the airway. Operative Findings: This procedure was done in the bronchoscopy suite under sedation. Anesthetic agents was given by anesthesia the bedside. The patient was given Versed 1 mg, fentanyl 50 g, Diprivan 80 mg. After achieving adequate sedation flexible bronchoscope was inserted successfully to the right nostril was advanced upper airway. Examination of the posterior oropharynx was done and then the rhonchus , was moved to the larynx with epiglottis was identified, vallecula was seen, the arytenoids and the vocal cords were inspected and are all within normal limits. There was no evidence of any foreign body in the upper airway. Vocal cord mobility and function was within normal without any nodules or lesions identified. A total of 2 mL of 1% lidocaine was applied to the vocal cords and following that the bronchoscope was advanced into the upper trachea. Examination of the second bronchus tree was done. There was a mild component of tracheal bronchomalacia. The upper and middle trachea was within normal limits. The distal trachea showed copious amount of mucous plugs and thick rest or secretions that were creamy white in color. Similar amount of secretions were seen in the right mainstem bronchus and the left mainstem bronchus. Therapeutic it was suctioning was done and the secretions were removed without any major difficulties. No foreign body was in 25. Airways inspection was completed. The trachea was clear of any foreign bodies. Bilateral mainstem bronchi were also within normal limits. Examination the right upper lobe was done and the 3 segments were seen and there was no abnormalities identified. The stump at the bronchus intermedius was seen and was intact. His initial less than including the left upper lobe bronchus, lingular segment and the left lower bronchus and similarly no foreign bodies or any other abnormalities noted. After therapeutic it was suctioning was done the bronchoscope was removed and the patient was instructed to recovery in stable condition. The respiratory secretions will be sent for cultures. The patient is already on Keflex and oral oral prednisone. Follow-up with his primary care physician. Follow-up with pulmonary and antibiotic modification will be done if there is any abnormal microbial growth. He is clear for discharge. No foreign body wasn't notified. Description of Procedure:
--- NOTE | 2017-07-22 11:11 | P.HPIM ---
History of Present Illness H&P Date: 07/22/17 Chief Complaint: Cough or dyspnea, possible aspiration of medication Mr. Joseph presented to my office Monday afternoon with chief complaint of some fullness in the throat and difficulty swallowing and send onset cough. During the evaluation he admitted to feeling like he aspirated his medication 2 days ago prior when taking them in the morning, he states that while at the office he felt like the pills were still stuck up in his throat. On physical exam he had slight rub that was new, on aspiration primarily in the left lung field. Patient has a history of COPD, and lung cancer with lung resection, approximately 5 years ago. Review of Systems Ears: bilateral: decreased hearing Ears, nose, mouth and throat: Reports hoarseness, Reports swelling in throat Cardiovascular: Reports as per HPI Respiratory: Reports congestion, Reports cough, Reports dyspnea Gastrointestinal: Reports as per HPI, Reports belching (Probably secondary to increase in prednisone from 5 mg to 10 mg daily), Reports bloating Genitourinary: Reports as per HPI, Reports nocturia Musculoskeletal: Reports as per HPI Integumentary: Reports as per HPI (Suppurative supported to hidradenitis by history, chronic) Psychiatric: Reports as per HPI Past Medical History Past Medical History: Atrial Fibrillation, Asthma, Cancer, Diabetes Mellitus, Eye Disorder, GERD/Reflux, GI Bleed, Hearing Disorder / Deafness, Renal Disease , Respiratory Disorder, Skin Disorder Additional Past Medical History / Comment(s): Chronic renal failure, non-small cell lung cancer with a previous right middle lobe/right lower lobe resection, hydradenitis, obesity, chronic atrial fibrillation, diabetes mellitus, acid reflux, hearing impairment, previous history of ulceration related to hydradenitis, History of Any Multi-Drug Resistant Organisms: None Reported Past Surgical History: Appendectomy, Cholecystectomy, Orthopedic Surgery Additional Past Surgical History / Comment(s): Right middle lobe/right lower lobe resection for non-small cell lung cancer, lap band, , UVP3, cyst removal off hip, surgery for perforated duodenal ulcer, ORIF for a left tib/fib fracture Past Anesthesia/Blood Transfusion Reactions: No Reported Reaction Past Psychological History: Depression Smoking Status: Former smoker Past Alcohol Use History: None Reported Additional Past Alcohol Use History / Comment(s): Patient was a smoker of 2-1/2 3 packs per day for 47 years, QUIT 4-5 YEARS AGO. He denies any medical marijuana, marijuana, street drug or alcohol use. Patient CURRENTLY AT [facility]. He has been on disability since 1990. THRU HIS WORK sustained lead poisoning there in 1971. 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 Past Drug Use History: None Reported - Past Family History Father Family Medical History: Cancer, Diabetes Mellitus, Liver Disease Mother Family Medical History: Cancer, Thyroid Disorder Medications and Allergies Home Medications Medication Instructions Recorded Confirmed Type Calcitriol [Rocaltrol] 0.25 mcg PO TH 06/06/16 07/21/17 History Albuterol Nebulized [Ventolin 2.5 mg INHALATION RT-QID PRN 10/23/16 07/21/17 History Nebulized] Calcium Carbonate/Vitamin D3 1 tab PO BID 10/23/16 07/21/17 History [Calcium 600-Vit D3 200 Tablet] Ipratropium [place] [Atrovent Hfa] 2 puff INHALATION RT-QID PRN 10/23/16 History Meclizine [Antivert] 25 mg PO Q8H PRN 10/23/16 07/21/17 History Multivitamins, Thera [Multivitamin 1 tab PO DAILY@1200 10/23/16 07/21/17 History (formulary)] Linagliptin [Tradjenta] 5 mg PO DAILY tablet 10/27/16 07/21/17 Rx Adalimumab [Humira Pen Crohn-Uc-Hs 40 mg SQ FR 02/08/17 07/21/17 History Starter] Albuterol Inhaler [Ventolin Hfa 1 - 2 puff INHALATION RT-Q6H PRN 02/08/17 History Inhaler] Cephalexin [Keflex] 1,000 mg PO QAM 02/08/17 07/21/17 History Cephalexin [Keflex] 500 mg PO HS 02/08/17 07/21/17 History Dakin's Solution 10 oz TOPICAL DIRECTED 02/08/17 07/21/17 History Diltiazem HCl [Cardizem LA] 360 mg PO DAILY 02/08/17 07/21/17 History Diphenoxylate HCl/Atropine 1 tab PO TID PRN 02/08/17 07/21/17 History [Lomotil] HYDROcodone/APAP 10-325MG [[place] 2 tab PO BID PRN 02/08/17 07/21/17 History 10-325] Omeprazole [PriLOSEC] 20 mg PO BID 02/08/17 07/21/17 History Sildenafil Citrate [Viagra] 100 mg PO DAILY PRN 02/08/17 07/21/17 History Citalopram Hydrobromide [CeleXA] 40 mg PO DAILY 07/21/17 07/21/17 History Furosemide [Lasix] 80 mg PO BID 07/21/17 07/21/17 History Metolazone [Zaroxolyn] 5 mg PO MOWEFR 07/21/17 07/21/17 History Metoprolol Succinate [Toprol XL] 12.5 mg PO BID 07/21/17 07/21/17 History Spironolactone [Aldactone] 25 mg PO DAILY 07/21/17 07/21/17 History predniSONE 10 mg PO DAILY 07/21/17 07/21/17 History Allergies Allergy/AdvReac Type Severity Reaction Status Date / Time clindamycin AdvReac Diarrhea Verified 07/21/17 17:57 Physical Exam Osteopathic Statement: *. No significant issues noted on an osteopathic structural exam other than those noted in the History and Physical/Consult. Vitals: Vital Signs Temp Pulse Pulse Resp BP BP Pulse Ox 07/22/17 09:09 88 07/22/17 08:59 88 07/22/17 07:00 97.3 F L 90 16 109/72 94 L 07/22/17 03:43 98.1 F 90 17 118/71 92 L 07/22/17 00:13 96 07/22/17 00:03 92 07/21/17 20:11 98.1 F 92 18 119/76 93 L 07/21/17 18:41 92 20 101/55 91 L 07/21/17 17:37 98.9 F 86 18 112/67 94 L Intake and Output 07/21/17 07/22/17 07/22/17 22:59 06:59 14:59 Intake Total 0 50 440 Output Total 400 100 200 Balance -400 -50 240 Intake: IV 200 Oral 0 50 240 Output: Urine 400 100 200 Other: Voiding Method Toilet # Voids 1 Weight 135.624 kg General: [Patient awake, alert and oriented times 3. Patient in no acute distress.] HEENT: [PERRL. EOMI. No pharyngeal erythema or exudate.] Neck: [No adenopathy.] Cardiac: [Heart regular in rate and rhythm. No S3. No S4. No clicks, rubs. No murmur.] Lungs: Pulmonary rub on the left, breast sounds bilaterally diminished, with slight hoarseness and cough Abdomen: [No mass. No organomegaly. Bowel sounds presnt and normoactive in all 4 quadrants.] Extremes: [No edema no cyanosis no claudication normal pulses] : [] Musculoskeletal: [No joint erythema, edema or tenderness.] Skin: [No rash.] Neurologic: [No lateralizing deficits. CN II - XII grossly intact.] Lymphatic: [No adenopathy.] Results Labs: Abnormal Lab Results - Last 24 Hours (Table) 07/22/17 Range/Units 07:17 POC Glucose (mg/dL) 106 H (75-99) mg/dL Thrombosis Risk Factor Assmnt - Choose All That Apply Each Risk Factor Represents 2 Points: Age 61-74 years Each Risk Factor Represents 3 Points: History of DVT/PE Thrombosis Risk Factor Assessment Total Risk Factor Score: 5 Thrombosis Risk Factor Assessment Level: High Risk Assessment and Plan Plan: Assessment and plan: Suspicious for aspiration secondary cough and dyspnea CT of chest was reviewed there is a suspicious foreign body in the distal trachea Chronic COPD Chronic renal failure Non-small cell lung CA with resection previously of the right middle lobe and right lower lobe Supporative hidradenitis chronic Chronic immunosuppression maintained on Humira patient takes Keflex prophylactically Chronic A. fib with current rhythm is sinus Diabetes mellitus controlled Chronic impaired hearing obesity with previous history of lack LAP-BAND gastrostomy Consult with Dr. Mckeon pulmonary medicine
--- NOTE | 2017-07-22 11:38 | P.DS ---
Providers Date of admission: 07/21/17 19:28 Expected date of discharge: 07/22/17 Attending physician: Joel Flores Consults: 07/21/17 19:28 Consult Physician Routine Consulting Provider: Anupam Mckeon Consult Reason/Comments: known Do you want consulting provider notified?: Yes Primary care physician: Jeol Flores Pertinent Studies: brochoscopy Procedures: ct scan trachea lungs Patient Condition at Discharge: Stable Plan - Discharge Summary New Discharge Prescriptions: No Action Calcitriol [Rocaltrol] 0.25 mcg PO TH Multivitamins, Thera [Multivitamin (formulary)] 1 tab PO DAILY@1200 Albuterol Nebulized [Ventolin Nebulized] 2.5 mg INHALATION RT-QID PRN PRN Reason: Shortness Of Breath Ipratropium [place] [Atrovent Hfa] 2 puff INHALATION RT-QID PRN PRN Reason: Shortness Of Breath Calcium Carbonate/Vitamin D3 [Calcium 600-Vit D3 200 Tablet] 1 tab PO BID Meclizine [Antivert] 25 mg PO Q8H PRN PRN Reason: Vertigo Linagliptin [Tradjenta] 5 mg PO DAILY tablet Omeprazole [PriLOSEC] 20 mg PO BID Cephalexin [Keflex] 500 mg PO HS Cephalexin [Keflex] 1,000 mg PO QAM Adalimumab [Humira Pen Crohn-Uc-Hs Starter] 40 mg SQ FR Sildenafil Citrate [Viagra] 100 mg PO DAILY PRN PRN Reason: ED Albuterol Inhaler [Ventolin Hfa Inhaler] 1 - 2 puff INHALATION RT-Q6H PRN PRN Reason: Shortness Of Breath HYDROcodone/APAP 10-325MG [[place] 10-325] 2 tab PO BID PRN PRN Reason: Pain Diphenoxylate HCl/Atropine [Lomotil] 1 tab PO TID PRN PRN Reason: Loose Stool Dakin's Solution 10 oz TOPICAL DIRECTED Diltiazem HCl [Cardizem LA] 360 mg PO DAILY Metoprolol Succinate [Toprol XL] 12.5 mg PO BID Metolazone [Zaroxolyn] 5 mg PO MOWEFR Spironolactone [Aldactone] 25 mg PO DAILY Furosemide [Lasix] 80 mg PO BID Citalopram Hydrobromide [CeleXA] 40 mg PO DAILY predniSONE 10 mg PO DAILY Discharge Medication List Calcitriol [Rocaltrol] 0.25 mcg PO TH 06/06/16 [History] Albuterol Nebulized [Ventolin Nebulized] 2.5 mg INHALATION RT-QID PRN 10/23/16 [ History] Calcium Carbonate/Vitamin D3 [Calcium 600-Vit D3 200 Tablet] 1 tab PO BID [History] Ipratropium [place] [Atrovent Hfa] 2 puff INHALATION RT-QID PRN 10/23/16 [ History] Meclizine [Antivert] 25 mg PO Q8H PRN 10/23/16 [History] Multivitamins, Thera [Multivitamin (formulary)] 1 tab PO DAILY@1200 10/23/16 [ History] Linagliptin [Tradjenta] 5 mg PO DAILY tablet 10/27/16 [Rx] Adalimumab [Humira Pen Crohn-Uc-Hs Starter] 40 mg SQ FR 02/08/17 [History] Albuterol Inhaler [Ventolin Hfa Inhaler] 1 - 2 puff INHALATION RT-Q6H PRN [History] Cephalexin [Keflex] 1,000 mg PO QAM 02/08/17 [History] Cephalexin [Keflex] 500 mg PO HS 02/08/17 [History] Dakin's Solution 10 oz TOPICAL DIRECTED 02/08/17 [History] Diltiazem HCl [Cardizem LA] 360 mg PO DAILY 02/08/17 [History] Diphenoxylate HCl/Atropine [Lomotil] 1 tab PO TID PRN 02/08/17 [History] HYDROcodone/APAP 10-325MG [[place] 10-325] 2 tab PO BID PRN 02/08/17 [History] Omeprazole [PriLOSEC] 20 mg PO BID 02/08/17 [History] Sildenafil Citrate [Viagra] 100 mg PO DAILY PRN 02/08/17 [History] Citalopram Hydrobromide [CeleXA] 40 mg PO DAILY 07/21/17 [History] Furosemide [Lasix] 80 mg PO BID 07/21/17 [History] Metolazone [Zaroxolyn] 5 mg PO MOWEFR 07/21/17 [History] Metoprolol Succinate [Toprol XL] 12.5 mg PO BID 07/21/17 [History] Spironolactone [Aldactone] 25 mg PO DAILY 07/21/17 [History] predniSONE 10 mg PO DAILY 07/21/17 [History] Follow up Appointment(s)/Referral(s): Joel Flores Jr, DO [Primary Care Provider] - 1-2 days
[2017-07-22] MEDS ORDERED: MULTIVITAMINS, THERA 1 EACH TAB PO SCH (12:00)
[2017-07-22] MEDS: CALCIUM CARB-VIT D 500MG-200UN 1 EACH TAB PO SCH (12:06)
[2017-07-22] MEDS: FUROSEMIDE 80 MG TAB PO SCH (12:08)
[2017-07-22] MEDS: guaiFENesin 600 MG TABLET.ER PO SCH (12:09)
[2017-07-22 12:19] VITALS: BP 114/68; PULSE 81; TEMP 96.6
[2017-07-22 12:41] LABS: Glucose,Whole Blood 211 mg/dL (75-99)
[2017-07-22 20:40] LABS: RBC, Body Fluid 580 /uL
[2017-07-27] MEDS ORDERED: CALCITRIOL 0.25 MCG CAP PO SCH (09:00)
== END 2017-07-22 14:05 | disposition home or self-care (01) | DRG 206 ==
LOC: EC 17:03 → 3SUR 19:28
PROVIDERS: ADMIT Family Medicine; ATTEND Family Medicine
PROC: 0BC38ZZ Extirpation of Matter from Right Main Bronchus, Via Natural or Artificial Opening Endoscopic (ICD-10-PCS; 2017-07-22)
PROC: 0BC78ZZ Extirpation of Matter from Left Main Bronchus, Via Natural or Artificial Opening Endoscopic (ICD-10-PCS; principal; 2017-07-22 09:15)
DX: T17.990A Other foreign object in respiratory tract, part unspecified in causing asphyxiation, initial encounter (principal); E11.22 Type 2 diabetes mellitus with diabetic chronic kidney disease; I48.2 Chronic atrial fibrillation; E66.9 Obesity, unspecified; F32.9 Major depressive disorder, single episode, unspecified; H91.90 Unspecified hearing loss, unspecified ear; J44.9 Chronic obstructive pulmonary disease, unspecified; K21.9 Gastro-esophageal reflux disease without esophagitis; L73.2 Hidradenitis suppurativa; N18.9 Chronic kidney disease, unspecified; J45.909 Unspecified asthma, uncomplicated; Z79.84 Long term (current) use of oral hypoglycemic drugs; Z79.899 Other long term (current) drug therapy; Z79.52 Long term (current) use of systemic steroids; Z88.1 Allergy status to other antibiotic agents; Z87.891 Personal history of nicotine dependence; Z85.118 Personal history of other malignant neoplasm of bronchus and lung; Z98.84 Bariatric surgery status
CPT/HCPCS: 31624; 87070; 87102; 87116; 87205; 87206; 87252; 87496; 87498; 87502; 87529; 87798; 88108; 88305; 89050; 94640; 99285

== ENCOUNTER 2017-07-28 22:35 | Emergency (ER) | payer MEDICARE ==
[2017-07-28 22:40] VITALS: RESP 20; TEMP 98
[2017-07-28] MEDS ORDERED: SODIUM CHLORIDE 0.9% 1,000 ML IV STA (22:58)
[2017-07-28] MEDS ORDERED: MAGNESIUM OXIDE 400 MG TAB PO STA (23:04)
[2017-07-28] MEDS ORDERED: MAGNESIUM SULFATE-D5W PMX 1 GM in DEXTROSE/WATER 1 100ML.BAG IVPB ONE (23:04)
--- NOTE | 2017-07-28 23:07 | ED ---
General Adult HPI - General Chief complaint: Recheck/Abnormal Lab/Rx Stated complaint: abnormal labs Time Seen by Provider: 07/28/17 22:54 Source: patient, family, RN notes reviewed Mode of arrival: wheelchair Limitations: no limitations - History of Present Illness Initial comments: Patient is a pleasant [age]-year-old male presenting to emergency Department with low magnesium level. Patient does have a history of similar problems previously. Patient had routine testing done today with level at 0.7. Patient was advised come to emergency department for replacement. Patient has had some diarrhea today which is normal with him when his magnesium level goes low. The symptoms usually improve when magnesium level is corrected. Patient does normally take magnesium twice daily and did take his afternoon dose today. Patient has no other complaints. Unclear etiology of chronic intermittent hypomagnesemia. His doctors have previously told him it could be related to previous cancer and chemotherapy or kidney problems. - Related Data Home Medications Medication Instructions Recorded Confirmed Calcitriol [Rocaltrol] 0.25 mcg PO TH 06/06/16 07/28/17 Albuterol Nebulized [Ventolin 2.5 mg INHALATION RT-QID PRN 10/23/16 07/28/17 Nebulized] Calcium Carbonate/Vitamin D3 1 tab PO BID 10/23/16 07/28/17 [Calcium 600-Vit D3 200 Tablet] Ipratropium [place] [Atrovent Hfa] 2 puff INHALATION RT-QID PRN 10/23/16 Meclizine [Antivert] 25 mg PO Q8H PRN 10/23/16 07/28/17 Multivitamins, Thera [Multivitamin 1 tab PO HS 10/23/16 07/28/17 (formulary)] Adalimumab [Humira Pen Crohn-Uc-Hs 40 mg SQ FR 02/08/17 07/28/17 Starter] Albuterol Inhaler [Ventolin Hfa 1 - 2 puff INHALATION RT-Q6H PRN 02/08/17 Inhaler] Cephalexin [Keflex] 1,000 mg PO QAM 02/08/17 07/28/17 Cephalexin [Keflex] 500 mg PO HS 02/08/17 07/28/17 Dakin's Solution 1 applic TOPICAL DAILY 02/08/17 07/28/17 Diltiazem HCl [Cardizem LA] 360 mg PO DAILY 02/08/17 07/28/17 Diphenoxylate HCl/Atropine 1 tab PO TID PRN 02/08/17 07/28/17 [Lomotil] HYDROcodone/APAP 10-325MG [[place] 2 tab PO BID 02/08/17 07/28/17 10-325] Omeprazole [PriLOSEC] 20 mg PO BID 02/08/17 07/28/17 Sildenafil Citrate [Viagra] 100 mg PO DAILY PRN 02/08/17 07/28/17 Citalopram Hydrobromide [CeleXA] 40 mg PO DAILY 07/21/17 07/28/17 Furosemide [Lasix] 80 mg PO BID 07/21/17 07/28/17 Metolazone [Zaroxolyn] 5 mg PO MOWEFR 07/21/17 07/28/17 Metoprolol Succinate [Toprol XL] 12.5 mg PO BID 07/21/17 07/28/17 Spironolactone [Aldactone] 25 mg PO DAILY 07/21/17 07/28/17 predniSONE 10 mg PO DAILY 07/21/17 07/28/17 Magnesium Oxide [Mag-Ox] 400 mg PO BID 07/28/17 07/28/17 Previous Rx's Medication Instructions Recorded Linagliptin [Tradjenta] 5 mg PO DAILY tablet 10/27/16 Allergies Allergy/AdvReac Type Severity Reaction Status Date / Time clindamycin AdvReac Diarrhea Verified 07/28/17 23:13 Review of Systems ROS Statement: Those systems with pertinent positive or pertinent negative responses have been documented in the HPI. ROS Other: All systems not noted in ROS Statement are negative. Constitutional: Denies: fever Eyes: Denies: eye pain ENT: Denies: ear pain Respiratory: Denies: cough Cardiovascular: Denies: chest pain, palpitations Endocrine: Denies: fatigue Gastrointestinal: Reports: diarrhea. Denies: abdominal pain Genitourinary: Denies: dysuria Musculoskeletal: Denies: back pain Skin: Denies: rash Neurological: Denies: weakness Past Medical History Past Medical History: Atrial Fibrillation, Asthma, Cancer, Diabetes Mellitus, Eye Disorder, GERD/Reflux, GI Bleed, Hearing Disorder / Deafness, Renal Disease , Respiratory Disorder, Skin Disorder Additional Past Medical History / Comment(s): Chronic renal failure, non-small cell lung cancer with a previous right middle lobe/right lower lobe resection, hydradenitis, obesity, chronic atrial fibrillation, diabetes mellitus, acid reflux, hearing impairment, previous history of ulceration related to hydradenitis, History of Any Multi-Drug Resistant Organisms: None Reported Past Surgical History: Appendectomy, Cholecystectomy, Orthopedic Surgery Additional Past Surgical History / Comment(s): Right middle lobe/right lower lobe resection for non-small cell lung cancer, lap band, , UVP3, cyst removal off hip, surgery for perforated duodenal ulcer, ORIF for a left tib/fib fracture Past Anesthesia/Blood Transfusion Reactions: No Reported Reaction Past Psychological History: Depression Smoking Status: Former smoker Past Alcohol Use History: None Reported Past Drug Use History: None Reported - Past Family History Father Family Medical History: Cancer, Diabetes Mellitus, Liver Disease Mother Family Medical History: Cancer, Thyroid Disorder General Exam Limitations: no limitations General appearance: alert, in no apparent distress Head exam: Present: atraumatic Eye exam: Present: normal appearance, PERRL ENT exam: Present: normal oropharynx Neck exam: Present: normal inspection Respiratory exam: Present: normal lung sounds bilaterally Cardiovascular Exam: Present: irregular rhythm GI/Abdominal exam: Present: soft. Absent: tenderness Extremities exam: Present: pedal edema (+3 bilateral which family states is chronic and actually somewhat improved.). Absent: calf tenderness Neurological exam: Present: alert Psychiatric exam: Present: normal affect, normal mood Skin exam: Present: normal color Course Vital Signs 07/28/17 22:37 Temperature 98.0 F Pulse Rate 96 Respiratory 20 Rate Blood Pressure 133/67 O2 Sat by Pulse 98 Oximetry EKG Findings - EKG Comments: EKG Findings:: A. fib with rate of 92. QRS 92. QT 380. QTC 469. Normal axis. Incomplete right bundle-branch block. Normal QRS. No acute ST change. Medical Decision Making - Medical Decision Making Case was discussed in detail with Dr. Schroeder who is familiar with this patient. He does recommend magnesium 4 g IV and oral and calcium replacement and follow-up Monday. Patient and family updated. - Lab Data Result diagrams: 07/28/17 22:50 07/28/17 22:50 Lab Results 07/28/17 07/28/17 Range/Units 22:50 22:50 WBC 18.6 H (3.8-10.6) k/uL RBC 4.41 (4.30-5.90) m/uL Hgb 11.0 L (13.0-17.5) gm/dL Hct 35.8 L (39.0-53.0) % MCV 81.0 (80.0-100.0) fL MCH 25.0 (25.0-35.0) pg MCHC 30.8 L (31.0-37.0) g/dL RDW 17.9 H (11.5-15.5) % Plt Count 545 H (150-450) k/uL Neutrophils % 84 % Lymphocytes % 9 % Monocytes % 4 % Eosinophils % 1 % Basophils % 1 % Neutrophils # 15.7 H (1.3-7.7) k/uL Lymphocytes # 1.7 (1.0-4.8) k/uL Monocytes # 0.7 (0-1.0) k/uL Eosinophils # 0.2 (0-0.7) k/uL Basophils # 0.1 (0-0.2) k/uL Hypochromasia Slight Anisocytosis Slight Microcytosis Slight Sodium 135 L (137-145) mmol/L Potassium 4.3 (3.5-5.1) mmol/L Chloride 95 L (98-107) mmol/L Carbon Dioxide 28 (22-30) mmol/L Anion Gap 12 mmol/L BUN 35 H (9-20) mg/dL Creatinine 2.00 H (0.66-1.25) mg/dL Est GFR (MDRD) Af Amer 40 (>60 ml/min/1.73 sqM) Est GFR (MDRD) Non-Af 33 (>60 ml/min/1.73 sqM) Glucose 117 H (74-99) mg/dL Calcium 6.3 L* (8.4-10.2) mg/dL Phosphorus 4.5 (2.5-4.5) mg/dL Magnesium 0.5 L* (1.6-2.3) mg/dL Total Bilirubin 0.3 (0.2-1.3) mg/dL AST 13 L (17-59) U/L ALT 20 L (21-72) U/L Alkaline Phosphatase 88 (38-126) U/L Total Protein 8.1 (6.3-8.2) g/dL Albumin 3.1 L (3.5-5.0) g/dL Disposition Clinical Impression: Hypomagnesemia, Hypocalcemia Disposition: HOME SELF-CARE Condition: Stable Instructions: Hypomagnesemia (ED), Hypocalcemia (ED) Additional Instructions: Please follow-up Monday morning with either Dr. Leggett or Dr. Schroeder. Please have your magnesium and calcium level rechecked at that time. Please take 1 additional dose of magnesium and calcium daily this weekend. Return for increased diarrhea, fever, abdominal pain, weakness, worsening symptoms or other concerns. Referrals: Joel Flores Jr, DO [Primary Care Provider] - 1-2 days Time of Disposition: 00:18
[2017-07-28 23:26] LABS: Anisocytosis Slight; Basophils # (A) 0.1 k/uL (0-0.2); Basophils % (A) 1 %; CH 25.6; CHCM 31.7; Eosinophils # (A) 0.2 k/uL (0-0.7); Eosinophils % (A) 1 %; HCT 35.8 % (39.0-53.0); HDW 2.71; Hypochromasia Slight; Luc # (Auto) 0.25; Luc % (Auto) 1; Lymphocytes # (A) 1.7 k/uL (1.0-4.8); Lymphocytes % (A) 9 %; MCHC 30.8 g/dL (31.0-37.0); Mean Platelet Volume 7.1; Microcytosis Slight; Monocytes # (A) 0.7 k/uL (0-1.0); Monocytes % (A) 4 %; Neutrophils # (A) 15.7 k/uL (1.3-7.7); Neutrophils % (A) 84 %; RBC 4.41 m/uL (4.30-5.90); RDW 17.9 % (11.5-15.5); WBC 18.6 k/uL (3.8-10.6); WBC (Perox) 17.48
[2017-07-28 23:34] LABS: Phosphorous 4.5 mg/dL (2.5-4.5); Potassium 4.3 mmol/L (3.5-5.1); Total Bilirubin 0.3 mg/dL (0.2-1.3); Total Protein 8.1 g/dL (6.3-8.2)
[2017-07-28 23:44] LABS: Calcium 6.3 mg/dL (8.4-10.2)
[2017-07-28 23:45] LABS: Magnesium 0.5 mg/dL (1.6-2.3)
[2017-07-29] MEDS ORDERED: CALCIUM GLUCONATE 1,000 MG in SODIUM CHLORIDE 0.9% 100 ML IVPB ONE (00:12)
[2017-07-29] MEDS ORDERED: CALCIUM CARB-VIT D 500MG-200UN 1 EACH TAB PO ONE (00:15)
[2017-07-29] MEDS: MAGNESIUM SULFATE-D5W PMX 1 GM in DEXTROSE/WATER 1 100ML.BAG IVPB SCH ×2 (00:23→01:28)
[2017-07-29 02:33] VITALS: BP 112/64; PULSE 90
== END 2017-07-29 02:33 | disposition home or self-care (01) ==
LOC: EC 22:35
DX: E83.42 Hypomagnesemia (principal); E83.51 Hypocalcemia; I48.91 Unspecified atrial fibrillation; I45.10 Unspecified right bundle-branch block; J45.909 Unspecified asthma, uncomplicated; K21.9 Gastro-esophageal reflux disease without esophagitis; F32.9 Major depressive disorder, single episode, unspecified; N18.9 Chronic kidney disease, unspecified; E66.09 Other obesity due to excess calories; Z68.35 Body mass index [BMI] 35.0-35.9, adult; Z88.1 Allergy status to other antibiotic agents; Z79.52 Long term (current) use of systemic steroids; Z79.899 Other long term (current) drug therapy; Z87.891 Personal history of nicotine dependence
CPT/HCPCS: 99283; 96365; 96366 ×2; 96368; 36415; 93005; 80053; 83735; 84100; 85025; J3475 ×2; J0610

== ENCOUNTER 2017-07-30 20:06 | Emergency (ER) | payer MEDICARE ==
[2017-07-30 20:11] VITALS: TEMP 98
[2017-07-30 20:31] VITALS: RESP 18
[2017-07-30 21:20] LABS: Anisocytosis Slight; Basophils # (A) 0.1 k/uL (0-0.2); Basophils % (A) 0 %; CH 25.2; CHCM 31.1; Eosinophils # (A) 0.3 k/uL (0-0.7); Eosinophils % (A) 2 %; HCT 34.2 % (39.0-53.0); HDW 2.69; HGB 10.6 gm/dL (13.0-17.5); Hypochromasia Slight; Luc % (Auto) 1; Lymphocytes # (A) 1.8 k/uL (1.0-4.8); Lymphocytes % (A) 10 %; MCH 25.1 pg (25.0-35.0); MCHC 30.9 g/dL (31.0-37.0); MCV 81.3 fL (80.0-100.0); Mean Platelet Volume 7.2; Microcytosis Slight; Monocytes % (A) 6 %; Neutrophils # (A) 14.3 k/uL (1.3-7.7); Neutrophils % (A) 81 %; RBC 4.21 m/uL (4.30-5.90); WBC 17.7 k/uL (3.8-10.6); WBC (Perox) 17.55
[2017-07-30] MEDS: MAGNESIUM SULFATE-D5W PMX 1 GM in DEXTROSE/WATER 1 100ML.BAG IVPB SCH ×2 (21:22→22:28)
[2017-07-30 21:29] LABS: Calcium 7.3 mg/dL (8.4-10.2); Potassium 4.5 mmol/L (3.5-5.1)
--- NOTE | 2017-07-30 22:11 | ED ---
Recheck HPI - General Chief Complaint: Recheck/Abnormal Lab/Rx Stated Complaint: Abnormal Labs Time Seen by Provider: 07/30/17 20:43 Source: patient Mode of arrival: wheelchair Limitations: no limitations - History of Present Illness Initial Comments: This patient is 67-year-old man with history of hypomagnesemia, who states that he was phoned and informed that his magnesium level was very low. The patient had had it checked in the clinic as she had been having some muscle spasms. Patient currently denies pains. MD Complaint: abnormal lab Onset/Timin -: days(s) Returns Today for: Called Because of Abnormal Lab/Test Symptoms Since Prior Visit: no new symptoms Context: called for abnormal lab result Associated Symptoms: other (Muscle cramps) - Related Data Home Medications Medication Instructions Recorded Confirmed Calcitriol [Rocaltrol] 0.25 mcg PO TH 06/06/16 08/14/17 Albuterol Nebulized [Ventolin 2.5 mg INHALATION RT-QID PRN 10/23/16 08/14/17 Nebulized] Calcium Carbonate/Vitamin D3 1 tab PO BID 10/23/16 08/14/17 [Calcium 600-Vit D3 200 Tablet] Meclizine [Antivert] 25 mg PO Q8H PRN 10/23/16 08/14/17 Multivitamins, Thera [Multivitamin 1 tab PO HS 10/23/16 08/14/17 (formulary)] Adalimumab [Humira Pen Crohn-Uc-Hs 40 mg SQ FR 02/08/17 08/14/17 Starter] Albuterol Inhaler [Ventolin Hfa 1 - 2 puff INHALATION RT-Q6H PRN 02/08/17 Inhaler] Cephalexin [Keflex] 1,000 mg PO QAM 02/08/17 08/14/17 Cephalexin [Keflex] 500 mg PO HS 02/08/17 08/14/17 Diltiazem HCl [Cardizem LA] 360 mg PO DAILY 02/08/17 08/14/17 Omeprazole [PriLOSEC] 20 mg PO BID 02/08/17 08/14/17 Citalopram Hydrobromide [CeleXA] 40 mg PO DAILY 07/21/17 08/14/17 Furosemide [Lasix] 80 mg PO BID 07/21/17 08/14/17 Metolazone [Zaroxolyn] 5 mg PO MOWEFR 07/21/17 08/14/17 Metoprolol Succinate [Toprol XL] 12.5 mg PO BID 07/21/17 08/14/17 Spironolactone [Aldactone] 25 mg PO DAILY 07/21/17 08/14/17 predniSONE 10 mg PO DAILY 07/21/17 08/14/17 Allopurinol [Zyloprim] 100 mg PO DAILY 08/14/17 08/14/17 Nystatin 100,000 Unit/ml Susp 5 ml PO QID 08/14/17 08/14/17 [Mycostatin Oral Susp] Spironolactone [Aldactone] 25 mg PO DAILY 08/14/17 08/14/17 guaiFENesin 400 mg PO TID 08/14/17 08/14/17 Previous Rx's Medication Instructions Recorded Linagliptin [Tradjenta] 5 mg PO DAILY tablet 10/27/16 Allergies Allergy/AdvReac Type Severity Reaction Status Date / Time clindamycin AdvReac Diarrhea Verified 08/14/17 14:34 Review of Systems ROS Statement: Those systems with pertinent positive or pertinent negative responses have been documented in the HPI. ROS Other: All systems not noted in ROS Statement are negative. Constitutional: Denies: fever, chills, weakness Respiratory: Denies: cough, dyspnea Cardiovascular: Denies: chest pain, palpitations Gastrointestinal: Reports: diarrhea. Denies: abdominal pain, vomiting Genitourinary: Denies: dysuria, hematuria Neurological: Denies: headache, weakness, numbness Past Medical History Past Medical History: Atrial Fibrillation, Asthma, Cancer, Diabetes Mellitus, Eye Disorder, GERD/Reflux, GI Bleed, Hearing Disorder / Deafness, Renal Disease , Respiratory Disorder, Skin Disorder Additional Past Medical History / Comment(s): Chronic renal failure, non-small cell lung cancer with a previous right middle lobe/right lower lobe resection, hydradenitis, obesity, chronic atrial fibrillation, diabetes mellitus, acid reflux, hearing impairment, previous history of ulceration related to hydradenitis, History of Any Multi-Drug Resistant Organisms: None Reported Past Surgical History: Appendectomy, Cholecystectomy, Orthopedic Surgery Additional Past Surgical History / Comment(s): Right middle lobe/right lower lobe resection for non-small cell lung cancer, lap band, , UVP3, cyst removal off hip, surgery for perforated duodenal ulcer, ORIF for a left tib/fib fracture Past Anesthesia/Blood Transfusion Reactions: No Reported Reaction Past Psychological History: Depression Smoking Status: Former smoker Past Alcohol Use History: Occasional Past Drug Use History: None Reported - Past Family History Father Family Medical History: Cancer, Diabetes Mellitus, Liver Disease Mother Family Medical History: Cancer, Thyroid Disorder General Exam Limitations: no limitations General appearance: alert, in no apparent distress, obese Head exam: Present: atraumatic, normocephalic Eye exam: Present: normal appearance Respiratory exam: Present: normal lung sounds bilaterally. Absent: respiratory distress, wheezes, rales, rhonchi Cardiovascular Exam: Present: regular rate, normal rhythm, normal heart sounds. Absent: systolic murmur, diastolic murmur, rubs, gallop GI/Abdominal exam: Present: soft. Absent: tenderness, guarding, rebound Skin exam: Present: warm, dry, intact Course Vital Signs 07/30/17 07/30/17 07/30/17 20:09 20:29 22:12 Temperature 98 F Pulse Rate 77 72 77 Respiratory 20 18 18 Rate Blood Pressure 115/62 111/64 110/68 O2 Sat by Pulse 97 94 L 98 Oximetry 07/30/17 22:29 Temperature Pulse Rate 76 Respiratory 18 Rate Blood Pressure 105/66 O2 Sat by Pulse 95 Oximetry Medical Decision Making - Lab Data Result diagrams: 07/30/17 20:28 07/30/17 20:28 Lab Results 07/30/17 07/30/17 Range/Units 20:28 20:28 WBC 17.7 H (3.8-10.6) k/uL RBC 4.21 L (4.30-5.90) m/uL Hgb 10.6 L (13.0-17.5) gm/dL Hct 34.2 L (39.0-53.0) % MCV 81.3 (80.0-100.0) fL MCH 25.1 (25.0-35.0) pg MCHC 30.9 L (31.0-37.0) g/dL RDW 18.0 H (11.5-15.5) % Plt Count 514 H (150-450) k/uL Neutrophils % 81 % Lymphocytes % 10 % Monocytes % 6 % Eosinophils % 2 % Basophils % 0 % Neutrophils # 14.3 H (1.3-7.7) k/uL Lymphocytes # 1.8 (1.0-4.8) k/uL Monocytes # 1.0 (0-1.0) k/uL Eosinophils # 0.3 (0-0.7) k/uL Basophils # 0.1 (0-0.2) k/uL Hypochromasia Slight Anisocytosis Slight Microcytosis Slight Sodium 135 L (137-145) mmol/L Potassium 4.5 (3.5-5.1) mmol/L Chloride 98 (98-107) mmol/L Carbon Dioxide 29 (22-30) mmol/L Anion Gap 8 mmol/L BUN 30 H (9-20) mg/dL Creatinine 1.60 H (0.66-1.25) mg/dL Est GFR (MDRD) Af Amer 52 (>60 ml/min/1.73 sqM) Est GFR (MDRD) Non-Af 43 (>60 ml/min/1.73 sqM) Glucose 102 H (74-99) mg/dL Calcium 7.3 L (8.4-10.2) mg/dL Magnesium 1.0 L* (1.6-2.3) mg/dL Disposition Clinical Impression: Hypomagnesemia, Renal insufficiency Disposition: HOME SELF-CARE Condition: Fair Referrals: Joel Flores Jr, DO [Primary Care Provider] - 1-2 days
[2017-07-30 22:30] VITALS: BP 105/66; PULSE 76
[2017-07-30] MEDS ORDERED: SODIUM CHLORIDE 0.9% 1,000 ML IV ONE (22:36)
--- NOTE | 2017-08-02 08:03 | CDI ---
Dear Reno Cooper MD: Please do addendum History of Present Illness and Physical Examination. Thank you, Lou Villegas, Therapeutic Recreation Director. If you have any questions, please contact Urology Physician at [phone]. AFSANEHD
== END 2017-07-31 00:08 | disposition home or self-care (01) ==
LOC: EC 20:06
DX: E83.42 Hypomagnesemia (principal); N18.9 Chronic kidney disease, unspecified; K21.9 Gastro-esophageal reflux disease without esophagitis; H91.90 Unspecified hearing loss, unspecified ear; F32.9 Major depressive disorder, single episode, unspecified; E66.9 Obesity, unspecified; Z87.891 Personal history of nicotine dependence; Z79.52 Long term (current) use of systemic steroids; Z79.899 Other long term (current) drug therapy; Z88.1 Allergy status to other antibiotic agents; Z85.118 Personal history of other malignant neoplasm of bronchus and lung; Z90.2 Acquired absence of lung [part of]; Z68.34 Body mass index [BMI] 34.0-34.9, adult
CPT/HCPCS: 99283; 96365; 96366; 36415; 80048; 83735; 85025; J3475

== ENCOUNTER 2017-08-14 14:13 | Inpatient (IN) | payer MEDICARE ==
[2017-08-14] MEDS ORDERED: MORPHINE SULFATE 4 MG/ML SYRINGE IVP STA (14:28)
[2017-08-14] MEDS ORDERED: ONDANSETRON 4 MG/2 ML VIAL IVP STA (14:28)
--- NOTE | 2017-08-14 15:03 | XR ---
EXAMINATION TYPE: XR chest 2V DATE OF EXAM: 08/14/2017 COMPARISON: 06/22/2017 TECHNIQUE: PA and lateral views submitted. HISTORY: Left-sided chest pain FINDINGS: There is right-sided consolidation and small effusion. No sizable pneumothorax. Arthropathy of the sh oulders. Left lung is clear. Deformities of the rib cage suggest previous trauma. IMPRESSION: 1. Stable right-sided consolidation and pleural effusion. 2. Deformities in the left lateral rib cage may be chronic rather than acute. Correlate with point te nderness. No sizable pneumothorax.
--- NOTE | 2017-08-14 15:07 | XR ---
EXAMINATION TYPE: XR Hip RT and AP Pelvis DATE OF EXAM: 08/14/2017 COMPARISON: NONE HISTORY: Pain TECHNIQUE: A single AP view of the pelvis is obtained. Two views of the right hip are obtained. FINDINGS: Diffuse osteopenia and arthropathy of the hip joints bilaterally. Degenerative change lower lumbar spine. SI joints symmetric. Vascular calcifications noted. IMPRESSION: 1. Arthropathy with no definite acute fracture. If symptoms persist consider CT scan.
[2017-08-14] MEDS ORDERED: MORPHINE SULFATE 10 MG/ML SYRINGE IM STA (15:12)
--- NOTE | 2017-08-14 16:04 | CT ---
EXAMINATION TYPE: CT hip RT wo con DATE OF EXAM: 08/14/2017 COMPARISON: Radiographs 08/14/2017 HISTORY: 67-year-old male complains of right hip pain post fall today. TECHNIQUE: Contiguous axial scanning of the right hip without IV contrast. Coronal and sagittal recon structions performed. CT DLP: 1168.3 mGycm Automated exposure control for dose reduction was used. FINDINGS: There is some for focal cortical thinning along the posterior margin of the lesser trochanter, axial image 61. There is diffuse osteopenia without any displaced fracture seen. Mild to moderate degenerat berenice joint space narrowing within the right hip. Diffuse muscular atrophy, vascular calcifications, and extensive cutaneous and subcutaneous soft tiss ue thickening along the lower right gluteal region which should be correlated clinically, and axial i mage 95. Some nonenlarged and mildly enlarged right inguinal lymph nodes measure up to 1.6 cm. IMPRESSION: 1. OSTEOPENIA WITHOUT DISPLACED FRACTURE SEEN. IF THE PATIENT IS NONWEIGHTBEARING, MRI WOULD PROVIDE MORE SENSITIVE EVALUATION. 2. SOME FOCAL CORTICAL THINNING INVOLVING THE LESSER TROCHANTER PROBABLY RELATING TO OSTEOPENIA. HOW EVER, IF THERE IS A HISTORY OF NEOPLASM IN THIS PATIENT AND A FOCAL LESION HERE NEEDS TO BE EXCLUDED, CONTRAST ENHANCED MRI OF THE RIGHT HIP COULD BE PERFORMED 3. SOME NONSPECIFIC MILDLY ENLARGED RIGHT INGUINAL LYMPH NODES ARE PROBABLY REACTIVE/POST INFLAMMATOR Y AND ARE STABLE FROM 06/21/2017. 4. DIFFUSE CUTANEOUS AND SUBCUTANEOUS TISSUE THICKENING ALONG THE LOWER GLUTEAL REGION. CLINICALLY CO RRELATE.
--- NOTE | 2017-08-14 16:39 | ED ---
Fall HPI <Jorge French J - Last Filed: 08/14/17 17:14> - General Source: patient, RN notes reviewed Mode of arrival: EMS Limitations: no limitations <Samir Regan - Last Filed: 08/14/17 17:18> - General Chief Complaint: Fall Stated Complaint: FALL Time Seen by Provider: 08/14/17 14:21 - History of Present Illness Initial Comments: This a 67-year-old male presents emergency department via EMS chief complaint fall. Patient states he was getting out of the shower and states that he slipped and fell onto the shower chair hitting the left side of his chest and also cleanser right hip pain. Patient states any movement with his right hip causes severe pain. Patient denies head injury no LOC. Patient has a cut to his left leg but states this is a fall a few days ago. Patient denies any back pain, neck pain. Patient states he has had a prior left tib-fib fracture and when she has difficulty and bleeding ever since. Patient states on a normal day he is able to family with a walker throughout his house. Patient states he cannot bear any weight and his right leg. (Samir Regan) - Related Data Home Medications Medication Instructions Recorded Confirmed Calcitriol [Rocaltrol] 0.25 mcg PO TH 06/06/16 08/14/17 Albuterol Nebulized [Ventolin 2.5 mg INHALATION RT-QID PRN 10/23/16 08/14/17 Nebulized] Calcium Carbonate/Vitamin D3 1 tab PO BID 10/23/16 08/14/17 [Calcium 600-Vit D3 200 Tablet] Meclizine [Antivert] 25 mg PO Q8H PRN 10/23/16 08/14/17 Multivitamins, Thera [Multivitamin 1 tab PO HS 10/23/16 08/14/17 (formulary)] Adalimumab [Humira Pen Crohn-Uc-Hs 40 mg SQ FR 02/08/17 08/14/17 Starter] Albuterol Inhaler [Ventolin Hfa 1 - 2 puff INHALATION RT-Q6H PRN 02/08/17 Inhaler] Cephalexin [Keflex] 1,000 mg PO QAM 02/08/17 08/14/17 Cephalexin [Keflex] 500 mg PO HS 02/08/17 08/14/17 Diltiazem HCl [Cardizem LA] 360 mg PO DAILY 02/08/17 08/14/17 Omeprazole [PriLOSEC] 20 mg PO BID 02/08/17 08/14/17 Citalopram Hydrobromide [CeleXA] 40 mg PO DAILY 07/21/17 08/14/17 Furosemide [Lasix] 80 mg PO BID 07/21/17 08/14/17 Metolazone [Zaroxolyn] 5 mg PO MOWEFR 07/21/17 08/14/17 Metoprolol Succinate [Toprol XL] 12.5 mg PO BID 07/21/17 08/14/17 Spironolactone [Aldactone] 25 mg PO DAILY 07/21/17 08/14/17 predniSONE 10 mg PO DAILY 07/21/17 08/14/17 Allopurinol [Zyloprim] 100 mg PO DAILY 08/14/17 08/14/17 Nystatin 100,000 Unit/ml Susp 5 ml PO QID 08/14/17 08/14/17 [Mycostatin Oral Susp] Spironolactone [Aldactone] 25 mg PO DAILY 08/14/17 08/14/17 guaiFENesin 400 mg PO TID 08/14/17 08/14/17 Previous Rx's Medication Instructions Recorded Linagliptin [Tradjenta] 5 mg PO DAILY tablet 10/27/16 Allergies Allergy/AdvReac Type Severity Reaction Status Date / Time clindamycin AdvReac Diarrhea Verified 08/14/17 14:34 Review of Systems ROS Other: All systems not noted in ROS Statement are negative. <Jorge French - Last Filed: 08/14/17 17:14> ROS Other: All systems not noted in ROS Statement are negative. <Samir Regan - Last Filed: 08/14/17 17:18> ROS Statement: Those systems with pertinent positive or pertinent negative responses have been documented in the HPI. Past Medical History Past Medical History: Atrial Fibrillation, Asthma, Cancer, Diabetes Mellitus, Eye Disorder, GERD/Reflux, GI Bleed, Hearing Disorder / Deafness, Renal Disease , Respiratory Disorder, Skin Disorder Additional Past Medical History / Comment(s): Chronic renal failure, non-small cell lung cancer with a previous right middle lobe/right lower lobe resection, hydradenitis, obesity, chronic atrial fibrillation, diabetes mellitus, acid reflux, hearing impairment, previous history of ulceration related to hydradenitis, History of Any Multi-Drug Resistant Organisms: None Reported Past Surgical History: Appendectomy, Cholecystectomy, Orthopedic Surgery Additional Past Surgical History / Comment(s): Right middle lobe/right lower lobe resection for non-small cell lung cancer, lap band, , UVP3, cyst removal off hip, surgery for perforated duodenal ulcer, ORIF for a left tib/fib fracture Past Anesthesia/Blood Transfusion Reactions: No Reported Reaction Past Psychological History: Depression Smoking Status: Former smoker Past Alcohol Use History: Occasional Past Drug Use History: None Reported - Past Family History Father Family Medical History: Cancer, Diabetes Mellitus, Liver Disease Mother Family Medical History: Cancer, Thyroid Disorder <Samir Regan - Last Filed: 08/14/17 17:18> General Exam Limitations: no limitations General appearance: alert, in no apparent distress Head exam: Present: atraumatic, normocephalic, normal inspection Neck exam: Present: normal inspection, full ROM. Absent: tenderness, meningismus, lymphadenopathy Respiratory exam: Present: normal lung sounds bilaterally, chest wall tenderness (moderate tenderness left side of the chest). Absent: respiratory distress, wheezes, rales, rhonchi, stridor Cardiovascular Exam: Present: regular rate, normal rhythm, normal heart sounds. Absent: systolic murmur, diastolic murmur, rubs, gallop, clicks Extremities exam: Present: other (Right hip there is times with palpation and pain with range of motion neurovascular intact left lower leg there is an old wound noted) Back exam: Present: full ROM. Absent: tenderness Neurological exam: Present: alert, oriented X3, CN II-XII intact Skin exam: Present: warm, dry, intact, normal color, other (Sores noted in the right buttocks region family states this is from hydradenitis and is this is chronic not worsen usual). Absent: rash <Samir Regan - Last Filed: 08/14/17 17:18> Medical Decision Making <Jorge French - Last Filed: 08/14/17 17:14> <Samir Regan - Last Filed: 08/14/17 17:18> - Medical Decision Making The patient was seen and examined. All diagnostics were reviewed. It appears that he is unable to ambulate. The CT scan of the right hip and the x-ray of the pelvis and right hip is negative for any fracture. The patient may potentially need an MRI or bone scan for further evaluation of the right hip. He does state that he is quite claustrophobic and would prefer not to have an MRI scan. He has seen Dr. Samir Gage in the past. Since there is no definitive fractures or severe traumatic injuries is not felt as though patient would require admission to trauma or orthopedics and would benefit more so from an admission to medicine. The case is discussed with Dr. Schroeder and he is agreeable to admission with orthopedics to consult. The case is discussed with the PA and agree with findings as documented. (Jorge French) Disposition <Jorge French - Last Filed: 08/14/17 17:14> <Samir Regan - Last Filed: 08/14/17 17:18> Clinical Impression: Fall, Right hip pain, Rib fracture, Unable to ambulate Disposition: ADMITTED IP TO THIS HOSP Condition: Fair Referrals: Joel Flores Jr, DO [Primary Care Provider] - 1-2 days
[2017-08-14] MEDS ORDERED: MECLIZINE 25 MG TAB PO PRN (17:13)
[2017-08-14] MEDS ORDERED: ONDANSETRON 4 MG/2 ML VIAL IVP PRN (17:15)
[2017-08-14] MEDS ORDERED: NALOXONE 0.4 MG/ML 1 ML VIAL IV PRN (17:15)
[2017-08-14 17:32] LABS: Anisocytosis Slight; Basophils # (A) 0.1 k/uL (0-0.2); Basophils % (A) 0 %; CHCM 29.8; Eosinophils # (A) 0.1 k/uL (0-0.7); Eosinophils % (A) 0 %; HCT 35.1 % (39.0-53.0); HDW 2.53; HGB 10.6 gm/dL (13.0-17.5); Hypochromasia Marked; Luc % (Auto) 1; Lymphocytes # (A) 1.1 k/uL (1.0-4.8); Lymphocytes % (A) 5 %; MCH 25.5 pg (25.0-35.0); MCHC 30.3 g/dL (31.0-37.0); MCV 84.3 fL (80.0-100.0); Mean Platelet Volume 6.5; Monocytes # (A) 0.8 k/uL (0-1.0); Monocytes % (A) 3 %; Neutrophils # (A) 21.9 k/uL (1.3-7.7); Neutrophils % (A) 91 %; RBC 4.16 m/uL (4.30-5.90); RDW 17.1 % (11.5-15.5); WBC 24.2 k/uL (3.8-10.6); WBC (Perox) 24.41
[2017-08-14 17:44] LABS: Calcium 6.7 mg/dL (8.4-10.2); Potassium 4.3 mmol/L (3.5-5.1)
[2017-08-14] MEDS: HYDROcodone/APAP 5-325MG 1 EACH TAB PO PRN (18:53)
[2017-08-14] MEDS: MORPHINE SULFATE 4 MG/ML SYRINGE IV PRN (21:13)
[2017-08-14] MEDS: NYSTATIN 100,000 UNIT/ML SUSP 500,000 UNIT/5 ML CUP PO SCH ×2 (21:17→21:28)
[2017-08-14] MEDS: FUROSEMIDE 80 MG TAB PO SCH (21:18)
[2017-08-14] MEDS: METOLAZONE 5 MG TAB PO SCH (21:18)
[2017-08-14] MEDS: PANTOPRAZOLE 40 MG TABLET PO SCH (21:18)
[2017-08-14] MEDS: METOPROLOL SUCCINATE (ER) 25 MG TAB.ER.24H PO SCH (21:19)
[2017-08-15 00:02] LABS: Appearance,Urine Clear (Clear); Bilirubin,Urine Negative (Negative); Glucose,Urine (UA) Negative (Negative); Ketones,Urine Negative (Negative); Leukocyte Esterase,Urine Negative (Negative); Mucus,Urine Rare /hpf; Nitrite,Urine Negative (Negative); PH, Urine 5.5 (5.0-8.0); Particle Count 1455; Protein,Urine Negative (Negative); RBC,Urine 9 /hpf (0-5); Specific Gravity,Urine 1.011 (1.001-1.035); UA Billing (MACRO vs. MICRO) MICRO; Urobilinogen,Urine <2.0 mg/dL (<2.0); WBC,Urine 1 /hpf (0-5)
[2017-08-15] MEDS: MORPHINE SULFATE 4 MG/ML SYRINGE IV PRN ×5 (03:08→23:05)
[2017-08-15] MEDS: FUROSEMIDE 80 MG TAB PO SCH ×2 (08:32→18:13)
[2017-08-15] MEDS: METOPROLOL SUCCINATE (ER) 25 MG TAB.ER.24H PO SCH ×2 (08:32→21:02)
[2017-08-15] MEDS: NYSTATIN 100,000 UNIT/ML SUSP 500,000 UNIT/5 ML CUP PO SCH ×4 (08:32→23:07)
[2017-08-15] MEDS: PANTOPRAZOLE 40 MG TABLET PO SCH (08:33)
[2017-08-15] MEDS: CITALOPRAM HYDROBROMIDE 20 MG TAB PO SCH (09:46)
[2017-08-15] MEDS: DILTIAZEM CD 180 MG CAP.ER.24H PO SCH (09:46)
[2017-08-15] MEDS: LINAGLIPTIN 5 MG TABLET PO SCH (09:47)
[2017-08-15] MEDS: ALLOPURINOL 100 MG TAB PO SCH (09:47)
[2017-08-15] MEDS: SPIRONOLACTONE 25 MG TAB PO SCH (09:47)
[2017-08-15] MEDS: predniSONE 10 MG TAB PO SCH (09:47)
--- NOTE | 2017-08-15 09:52 | P.CNOR ---
History of Present Illness - [facility] Consult date: 08/15/17 Requesting physician: Alek Moran Consult reason: joint pain History of present illness: Patient is a pleasant 67-year-old male seen at bedside this morning in consultation for right hip and thigh pain. He states he fell when getting out of the bathtub yesterday and describes a hyper extension type injury. He has pain with minimal movement or range of motion of the right hip as well as weightbearing. Pain is in the anterior thigh and lateral thigh. He has no symptoms radiating below the knee. He denies numbness, tingling, or radicular symptoms. He has no calf pain, fever, chills, chest pain, shortness of breath or other. Review of Systems All systems: negative Constitutional: Denies chills, Denies fever Eyes: denies blurred vision, denies pain Ears, nose, mouth and throat: Denies headache, Denies sore throat Cardiovascular: Denies chest pain, Denies shortness of breath Respiratory: Denies cough Gastrointestinal: Denies abdominal pain, Denies diarrhea, Denies nausea, Denies vomiting Musculoskeletal: Denies myalgias Integumentary: Denies pruritus, Denies rash Neurological: Denies numbness, Denies weakness Psychiatric: Denies anxiety, Denies depression Endocrine: Denies fatigue, Denies weight change Past Medical History Past Medical History: Atrial Fibrillation, Asthma, Cancer, Diabetes Mellitus, Eye Disorder, GERD/Reflux, GI Bleed, Hearing Disorder / Deafness, Renal Disease , Respiratory Disorder, Skin Disorder Additional Past Medical History / Comment(s): Chronic renal failure, non-small cell lung cancer with a previous right middle lobe/right lower lobe resection, hydradenitis, obesity, chronic atrial fibrillation, diabetes mellitus, acid reflux, hearing impairment, previous history of ulceration related to hydradenitis"yeast in throat", History of Any Multi-Drug Resistant Organisms: None Reported Past Surgical History: Appendectomy, Cholecystectomy, Orthopedic Surgery Additional Past Surgical History / Comment(s): Right middle lobe/right lower lobe resection for non-small cell lung cancer, lap band, , UVP3, cyst removal off hip, surgery for perforated duodenal ulcer, ORIF for a left tib/fib fracture , 07-22-17 bronchoscopy. Past Anesthesia/Blood Transfusion Reactions: No Reported Reaction Smoking Status: Former smoker - Past Family History Father Family Medical History: Cancer, Diabetes Mellitus, Liver Disease Mother Family Medical History: Cancer, Thyroid Disorder Medications and Allergies Home Medications Medication Instructions Recorded Confirmed Type RX: Calcitriol [Rocaltrol] 0.25 mcg PO TH 06/06/16 08/14/17 History RX: Albuterol Nebulized [Ventolin 2.5 mg INHALATION RT-QID PRN 10/23/16 History Nebulized] RX: Calcium Carbonate/Vitamin D3 1 tab PO BID 10/23/16 08/14/17 History [Calcium 600-Vit D3 200 Tablet] RX: Meclizine [Antivert] 25 mg PO Q8H PRN 10/23/16 08/14/17 History RX: Multivitamins, Thera 1 tab PO HS 10/23/16 08/14/17 History [Multivitamin (formulary)] RX: Linagliptin [Tradjenta] 5 mg PO DAILY tablet 10/27/16 08/14/17 Rx RX: Adalimumab [Humira Pen 40 mg SQ FR 02/08/17 08/14/17 History Crohn-Uc-Hs Starter] RX: Albuterol Inhaler [Ventolin 1 - 2 puff INHALATION RT-Q6H PRN 02/08/17 History Hfa Inhaler] RX: Cephalexin [Keflex] 1,000 mg PO QAM 02/08/17 08/14/17 History RX: Cephalexin [Keflex] 500 mg PO HS 02/08/17 08/14/17 History RX: Diltiazem HCl [Cardizem LA] 360 mg PO DAILY 02/08/17 08/14/17 History RX: Omeprazole [PriLOSEC] 20 mg PO BID 02/08/17 08/14/17 History Citalopram Hydrobromide [CeleXA] 40 mg PO DAILY 07/21/17 08/14/17 History Furosemide [Lasix] 80 mg PO BID 07/21/17 08/14/17 History Metolazone [Zaroxolyn] 5 mg PO MOWEFR 07/21/17 08/14/17 History Metoprolol Succinate [Toprol XL] 12.5 mg PO BID 07/21/17 08/14/17 History RX: predniSONE 10 mg PO DAILY 07/21/17 08/14/17 History Spironolactone [Aldactone] 25 mg PO DAILY 07/21/17 08/14/17 History Allopurinol [Zyloprim] 100 mg PO DAILY 08/14/17 08/14/17 History RX: Nystatin 100,000 Unit/ml Susp 5 ml PO QID 08/14/17 08/14/17 History [Mycostatin Oral Susp] RX: guaiFENesin 400 mg PO TID 08/14/17 08/14/17 History Spironolactone [Aldactone] 25 mg PO DAILY 08/14/17 08/14/17 History Allergies Allergy/AdvReac Type Severity Reaction Status Date / Time clindamycin AdvReac Diarrhea Verified 08/14/17 14:34 Physical Examination Inspection of the right lower extremity shows no wounds or lacerations on the anterior and lateral thigh. There is no erythema or ecchymosis at the anterior or lateral thigh. He has chronic chronic hidradenitis which there is evidence of in the posterior thigh. He has significant pain with minimal range of motion of the right hip. Flexion and rotation with internal and external is minimal without pain. There is mild tenderness in the anterior lateral thigh. Neurovascular status intact with motor and sensation throughout the right lower extremity. The calf is soft and nontender. 2+ dorsalis pedis pulse and less than 2 second cap refill is present. Results X-rays of the pelvis and right hip show no definitive fracture. CT of the pelvis and right hip shows no definitive fracture. - Labs Labs: Abnormal Lab Results - Last 24 Hours (Table) 08/14/17 08/14/17 08/14/17 Range/Units 15:21 15:21 23:45 WBC 24.2 H (3.8-10.6) k/uL RBC 4.16 L (4.30-5.90) m/uL Hgb 10.6 L (13.0-17.5) gm/dL Hct 35.1 L (39.0-53.0) % MCHC 30.3 L (31.0-37.0) g/dL RDW 17.1 H (11.5-15.5) % Plt Count 486 H (150-450) k/uL Neutrophils # 21.9 H (1.3-7.7) k/uL Sodium 133 L (137-145) mmol/L Chloride 93 L (98-107) mmol/L BUN 31 H (9-20) mg/dL Creatinine 1.68 H (0.66-1.25) mg/dL Glucose 136 H (74-99) mg/dL Calcium 6.7 L (8.4-10.2) mg/dL Urine Blood Trace H (Negative) Urine RBC 9 H (0-5) /hpf Hyaline Casts 3 H (0-2) /lpf Urine Mucus Rare H (None) /hpf H & H 08/14/17 Range/Units 15:21 Hgb 10.6 L (13.0-17.5) gm/dL Hct 35.1 L (39.0-53.0) % Result Diagrams: 08/14/17 15:21 08/14/17 15:21 - Diagnostic results Hip x-ray: report reviewed, image reviewed Hip CT: report reviewed, image reviewed Assessment and Plan (1) Right hip pain Narrative/Plan: Studies thus far have been negative for hip fracture. I have ordered an x-ray of the right femur to confirm he does not have a more distal femur fracture. He may have a hyperextension/muscle strain injury in the anterior muscle groups of the thigh and hip. A total body bone scan has also been ordered. We will review results of those studies. I will discuss with Dr. Moran possible further investigations including an MRI with and without contrast. We'll continue to follow and make recommendations as appropriate. Status: Acute Time with Patient: Less than 30
--- NOTE | 2017-08-15 10:36 | XR ---
EXAMINATION TYPE: XR femur RT DATE OF EXAM: 08/15/2017 COMPARISON: NONE HISTORY: Pain TECHNIQUE: 7 views submitted FINDINGS: Vascular calcifications noted. Diffuse osteopenia is seen. Arthropathy of the knee joint. A rthropathy of the hip joint. Osseous structures intact. IMPRESSION: 1. Arthropathy with no acute fracture.
[2017-08-15] MEDS: ALBUTEROL NEBULIZED 2.5 MG/3 ML INHALATION PRN ×3 (11:29→19:40)
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
[2017-08-15] MEDS ORDERED: ALBUTEROL INHALER 60 PUFF/8 GM INHALER INHALATION PRN (12:17)
[2017-08-15] MEDS: HYDROcodone/APAP 5-325MG 1 EACH TAB PO PRN (12:25)
--- NOTE | 2017-08-15 14:39 | P.CNPUL ---
History of Present Illness Consult date: 08/15/17 Requesting physician: Francis Schroeder Reason for consult: COPD, pleural effusion, abnormal CXR/CT Chief complaint: Status post fall and right hip pain. History of present illness: This is a 67-year-old white male with history of multiple medical problems including COPD, chronic congestive heart failure, morbid obesity, previous lobectomy for non-small cell lung cancer over 5 years ago, chronic atrial fibrillation, chronic renal failure, patient was admitted this time on 2016 because he fell as he was drying himself off and put one leg on the bathtub to dry off then switched legs in the process he fell. Patient fell on the left side, however apparently there was some hyperextension of the right hip , came in with severe pain involving the right hip. Workup so far included CT of the hip, x-rays of the hip, are negative for possible fracture. Bone scan is scheduled to confirm that there is no evidence of right hip fracture. Considering his other medical problems including COPD and history of lung cancer as well as his chronic congestive heart failure, and chronic right lower lobe changes related to previous surgery, I was asked to see him on consultation. Presently the patient has minimal dyspnea on exertion, no cough no wheezing no shortness of breath at rest, no chest pain. Patient is usually maintained on a 10 mg of prednisone is also on updraft treatments for COPD. And the patient is on relatively high dose of diuretics for chronic congestive heart failure. His clinical pulmonary and cardiac status seemed to be relatively stable at this point. The patient's main complaint at this point is mostly right hip pain. And difficulty to bear any weight on the right hip. Patient was seen by orthopedics and workup is in progress, awaiting to have a bone scan. But so far the workup is negative for fracture. Review of Systems Santos point review of systems were obtained, please refer to pertinent positives in the HPI, otherwise other systems are all negative. Past Medical History Past Medical History: Atrial Fibrillation, Asthma, Cancer, Diabetes Mellitus, Eye Disorder, GERD/Reflux, GI Bleed, Hearing Disorder / Deafness, Renal Disease , Respiratory Disorder, Skin Disorder Additional Past Medical History / Comment(s): Chronic renal failure, non-small cell lung cancer with a previous right middle lobe/right lower lobe resection, hydradenitis, obesity, chronic atrial fibrillation, diabetes mellitus, acid reflux, hearing impairment, previous history of ulceration related to hydradenitis"yeast in throat", History of Any Multi-Drug Resistant Organisms: None Reported Past Surgical History: Appendectomy, Cholecystectomy, Orthopedic Surgery Additional Past Surgical History / Comment(s): Right middle lobe/right lower lobe resection for non-small cell lung cancer, lap band, , UVP3, cyst removal off hip, surgery for perforated duodenal ulcer, ORIF for a left tib/fib fracture , 07-22-17 bronchoscopy. Past Anesthesia/Blood Transfusion Reactions: No Reported Reaction Smoking Status: Former smoker - Past Family History Father Family Medical History: Cancer, Diabetes Mellitus, Liver Disease Mother Family Medical History: Cancer, Thyroid Disorder Medications and Allergies Home Medications Medication Instructions Recorded Confirmed Type Calcitriol [Rocaltrol] 0.25 mcg PO TH 06/06/16 08/14/17 History Albuterol Nebulized [Ventolin 2.5 mg INHALATION RT-QID PRN 10/23/16 08/14/17 History Nebulized] Calcium Carbonate/Vitamin D3 1 tab PO BID 10/23/16 08/14/17 History [Calcium 600-Vit D3 200 Tablet] Meclizine [Antivert] 25 mg PO Q8H PRN 10/23/16 08/14/17 History Multivitamins, Thera [Multivitamin 1 tab PO HS 10/23/16 08/14/17 History (formulary)] Linagliptin [Tradjenta] 5 mg PO DAILY tablet 10/27/16 08/14/17 Rx Adalimumab [Humira Pen Crohn-Uc-Hs 40 mg SQ FR 02/08/17 08/14/17 History Starter] Albuterol Inhaler [Ventolin Hfa 1 - 2 puff INHALATION RT-Q6H PRN 02/08/17 History Inhaler] Cephalexin [Keflex] 1,000 mg PO QAM 02/08/17 08/14/17 History Cephalexin [Keflex] 500 mg PO HS 02/08/17 08/14/17 History Diltiazem HCl [Cardizem LA] 360 mg PO DAILY 02/08/17 08/14/17 History Omeprazole [PriLOSEC] 20 mg PO BID 02/08/17 08/14/17 History Citalopram Hydrobromide [CeleXA] 40 mg PO DAILY 07/21/17 08/14/17 History Furosemide [Lasix] 80 mg PO BID 07/21/17 08/14/17 History Metolazone [Zaroxolyn] 5 mg PO MOWEFR 07/21/17 08/14/17 History Metoprolol Succinate [Toprol XL] 12.5 mg PO BID 07/21/17 08/14/17 History Spironolactone [Aldactone] 25 mg PO DAILY 07/21/17 08/14/17 History predniSONE 10 mg PO DAILY 07/21/17 08/14/17 History Allopurinol [Zyloprim] 100 mg PO DAILY 08/14/17 08/14/17 History Nystatin 100,000 Unit/ml Susp 5 ml PO QID 08/14/17 08/14/17 History [Mycostatin Oral Susp] Spironolactone [Aldactone] 25 mg PO DAILY 08/14/17 08/14/17 History guaiFENesin 400 mg PO TID 08/14/17 08/14/17 History Allergies Allergy/AdvReac Type Severity Reaction Status Date / Time clindamycin AdvReac Diarrhea Verified 08/14/17 14:34 Physical Exam Vitals: Vital Signs Temp Pulse Pulse Resp BP BP Pulse Ox 08/15/17 11:40 84 08/15/17 11:33 80 08/15/17 10:00 84 08/15/17 07:00 97.9 F 85 20 118/60 08/14/17 21:39 93 L 08/14/17 21:23 98.2 F 101 H 20 138/73 88 L 08/14/17 18:47 97.1 F L 98 18 110/67 98 08/14/17 16:08 97 F L 72 18 113/67 92 L 08/14/17 14:34 98.0 F 93 18 116/71 93 L Intake and Output 08/14/17 08/15/17 08/15/17 22:59 06:59 14:59 Intake Total 100 Output Total 200 420 Balance -100 -420 Intake: Oral 100 Output: Urine 200 420 Other: Voiding Method Urinal Urinal Weight 133.81 kg Patient Weight 08/16/17 06:59 Weight 133.81 kg Results - Laboratory Findings CBC and BMP: 08/14/17 15:21 08/14/17 15:21 Abnormal lab findings: Abnormal Labs 08/14/17 08/14/17 08/14/17 15:21 15:21 23:45 WBC 24.2 H RBC 4.16 L Hgb 10.6 L Hct 35.1 L MCHC 30.3 L RDW 17.1 H Plt Count 486 H Neutrophils # 21.9 H Sodium 133 L Chloride 93 L BUN 31 H Creatinine 1.68 H Glucose 136 H Calcium 6.7 L Urine Blood Trace H Urine RBC 9 H Hyaline Casts 3 H Urine Mucus Rare H - Diagnostic Findings Chest x-ray: image reviewed (Chronic changes with possible right pleural effusion, chronic, unchanged over the last few years.) Assessment and Plan Plan: Impression: 1 acute fall, possible right hip fracture, workup is in progress. Patient is being followed by orthopedics, bone scan is pending, but so far the workup is negative for hip fracture. 2 history of multiple comorbidities including severe COPD, bronchogenic carcinoma and previous lobectomy, chronic atrial fibrillation, chronic systolic congestive heart failure, type 2 diabetes, history of GERD without esophagitis, history of chronic renal failure, history of right lower lobectomy, history of hearing impairment, history of hidradenitis, and history of morbid obesity. Recommendation: I fully agree with the present treatment plan, patient's meds were all reviewed, continue present pulmonary metastases and cardiac meds as given on outpatient basis, we'll continue to follow with you closely. Time with Patient: Greater than 30
[2017-08-15] MEDS: BACITRACIN 500 UNIT/GM OINT 28.4 GM TUBE TOPICAL SCH (15:03)
[2017-08-15] MEDS: CYCLOBENZAPRINE 10 MG TAB PO PRN (15:36)
[2017-08-15] MEDS: HEPARIN SODIUM,PORCINE 5,000 UNIT/ML 1 ML VIAL SQ SCH ×2 (17:41→23:07)
--- NOTE | 2017-08-15 17:45 | NM ---
EXAMINATION TYPE: NM bone scan whole body DATE OF EXAM: 08/15/2017 COMPARISON: NONE HISTORY: Delayed whole-body scanning was performed following the injection of 22.1 mCi Tc 99m MDP. Images acq uired 3.5 hours post injection. FINDINGS: There is a mild lumbar levoscoliosis. There is focal anterior increased uptake in the right eighth ri b at the costochondral junction. This is not suspicious for malignancy. The remainder of the tracer d istribution is fairly normal. IMPRESSION: No evidence of malignancy. Increased uptake in the right eighth rib is probably due to stress related phenomenon.
--- NOTE | 2017-08-15 18:19 | P.CONS ---
History of Present Illness - Reason for Consult Consult date: 08/15/17 Hx early stage NSCLC Requesting physician: Francis Schroeder - Chief Complaint fall - History of Present Illness Mr. Moore is a very pleasant male pt of Dr. Mireles who is followed for NSCLC squamous cell subtype and for anemia of CKD for which he has received procrit for in the past. Pt also has a history of hidradentitis. He is current on his follow up for lung cancer-last imaging in Dec 2016, [facility], next scan due soon. Pt has no constitutional s/s of malignancy, no sweats, changes in breathing, new pain. He last received procrit 2 weeks ago, he had received 1 of 2 planned doses of parenteral iron for iron deficiency. His hydradentitis has required intermittent management with meds and surgery. Pt admitted after fall at home, he was in shower and fell with his right leg outside of the tub, his hip is very tender and it hurts to move the leg actively or passively, he denies numbness, tingling in either leg, swelling is stable. Pt has some suspicious findings on imaging including lymphadenopathy and osseous abnormalities. Malignancy: RLL lung mass found incidentally when CT of abd was done for choleycystitis early 2012. CT chest confirmed mass, staging PET showed no mets , pt had right lower lobectomy on 03/19/13, path revealed T3 squamous cell cancer , N1 (3 nodes positive) and possibly one margin positive, adjuvant treatment was recommended, pt started adjuvant chemo 06/04/13, had 2 cycles but kidney function declined so treatment was stopped, pt refused adjuvant radiation and has been on 6 mo monitoring since with [facility]. Review of Systems 10 point ROS is negative except as stated in IH Past Medical History Past Medical History: Atrial Fibrillation, Asthma, Cancer, Diabetes Mellitus, Eye Disorder, GERD/Reflux, GI Bleed, Hearing Disorder / Deafness, Renal Disease , Respiratory Disorder, Skin Disorder Additional Past Medical History / Comment(s): Chronic renal failure, non-small cell lung cancer with a previous right middle lobe/right lower lobe resection, hydradenitis, obesity, chronic atrial fibrillation, diabetes mellitus, acid reflux, hearing impairment, previous history of ulceration related to hydradenitis"yeast in throat", History of Any Multi-Drug Resistant Organisms: None Reported Past Surgical History: Appendectomy, Cholecystectomy, Orthopedic Surgery Additional Past Surgical History / Comment(s): Right middle lobe/right lower lobe resection for non-small cell lung cancer, lap band, , UVP3, cyst removal off hip, surgery for perforated duodenal ulcer, ORIF for a left tib/fib fracture , 07-22-17 bronchoscopy. Past Anesthesia/Blood Transfusion Reactions: No Reported Reaction Smoking Status: Former smoker - Past Family History Father Family Medical History: Cancer, Diabetes Mellitus, Liver Disease Mother Family Medical History: Cancer, Thyroid Disorder Medications and Allergies Home Medications Medication Instructions Recorded Confirmed Type Calcitriol [Rocaltrol] 0.25 mcg PO TH 06/06/16 08/14/17 History Albuterol Nebulized [Ventolin 2.5 mg INHALATION RT-QID PRN 10/23/16 08/14/17 History Nebulized] Calcium Carbonate/Vitamin D3 1 tab PO BID 10/23/16 08/14/17 History [Calcium 600-Vit D3 200 Tablet] Meclizine [Antivert] 25 mg PO Q8H PRN 10/23/16 08/14/17 History Multivitamins, Thera [Multivitamin 1 tab PO HS 10/23/16 08/14/17 History (formulary)] Linagliptin [Tradjenta] 5 mg PO DAILY tablet 10/27/16 08/14/17 Rx Adalimumab [Humira Pen Crohn-Uc-Hs 40 mg SQ FR 02/08/17 08/14/17 History Starter] Albuterol Inhaler [Ventolin Hfa 1 - 2 puff INHALATION RT-Q6H PRN 02/08/17 History Inhaler] Cephalexin [Keflex] 1,000 mg PO QAM 02/08/17 08/14/17 History Cephalexin [Keflex] 500 mg PO HS 02/08/17 08/14/17 History Diltiazem HCl [Cardizem LA] 360 mg PO DAILY 02/08/17 08/14/17 History Omeprazole [PriLOSEC] 20 mg PO BID 02/08/17 08/14/17 History Citalopram Hydrobromide [CeleXA] 40 mg PO DAILY 07/21/17 08/14/17 History Furosemide [Lasix] 80 mg PO BID 07/21/17 08/14/17 History Metolazone [Zaroxolyn] 5 mg PO MOWEFR 07/21/17 08/14/17 History Metoprolol Succinate [Toprol XL] 12.5 mg PO BID 07/21/17 08/14/17 History Spironolactone [Aldactone] 25 mg PO DAILY 07/21/17 08/14/17 History predniSONE 10 mg PO DAILY 07/21/17 08/14/17 History Allopurinol [Zyloprim] 100 mg PO DAILY 08/14/17 08/14/17 History Nystatin 100,000 Unit/ml Susp 5 ml PO QID 08/14/17 08/14/17 History [Mycostatin Oral Susp] Spironolactone [Aldactone] 25 mg PO DAILY 08/14/17 08/14/17 History guaiFENesin 400 mg PO TID 08/14/17 08/14/17 History Allergies Allergy/AdvReac Type Severity Reaction Status Date / Time clindamycin AdvReac Diarrhea Verified 08/14/17 14:34 Physical Exam Vitals: Vital Signs Temp Pulse Pulse Resp BP BP Pulse Ox 08/15/17 16:48 97.9 F 78 18 103/67 94 L 08/15/17 15:51 80 08/15/17 15:46 76 08/15/17 11:40 84 08/15/17 11:33 80 08/15/17 10:00 84 08/15/17 07:00 97.9 F 85 20 118/60 08/14/17 21:39 93 L 08/14/17 21:23 98.2 F 101 H 20 138/73 88 L 08/14/17 18:47 97.1 F L 98 18 110/67 98 Intake and Output 08/15/17 08/15/17 08/15/17 06:59 14:59 22:59 Intake Total 100 Output Total 200 420 Balance -100 -420 Intake: Oral 100 Output: Urine 200 420 Other: Voiding Method Urinal Urinal Urinal # Voids 2 Weight 133.81 kg Patient Weight 08/16/17 06:59 Weight 133.81 kg - Constitutional General appearance: cooperative, mild distress, obese - EENT Eyes: anicteric sclerae, normal appearance ENT: normal oropharynx - Neck Neck: lymphadenopathy - Respiratory Respiratory: bilateral: diminished - Cardiovascular Heart sounds: normal: S1, S2 leg Peripheral Edema: bilateral: 2+ - Gastrointestinal General gastrointestinal: no absent bowel sounds, no decreased bowel sounds, no distended, no hepatomegaly, no hyperactive bowel sounds, normal bowel sounds, no organomegaly, no rigid, no scaphoid, soft, no splenomegaly, no tenderness, no umbilical hernia, no ventral hernia - Neurologic Neurologic: CNII-XII intact - Musculoskeletal right leg ROM decreased due to pain in the hip - Psychiatric Psychiatric: A&O x's 3, appropriate affect, intact judgment & insight Results CBC & Chem 7: 08/14/17 15:21 08/14/17 15:21 Labs: Abnormal Lab Results - Last 24 Hours (Table) 08/14/17 Range/Units 23:45 Urine Blood Trace H (Negative) Urine RBC 9 H (0-5) /hpf Hyaline Casts 3 H (0-2) /lpf Urine Mucus Rare H (None) /hpf Comments: xray and CT reports reviewed Assessment and Plan (1) Fall Narrative/Plan: Does not appear to have fracture, pt will be managed per Othopedics Status: Acute (2) Right hip pain Status: Acute (3) Squamous cell lung cancer Narrative/Plan: Stage IIIa, current on follow up. Lymphadenopathy in the groin is not concerning for mets as this has been present for quite some time and due to hidradentitis. Skeletal findings will be further investigated with bone scan, will follow up after resulted and discuss with pt. Pt will keep planned imaging study and follow up as directed. Status: Chronic (4) Anemia in chronic kidney disease Narrative/Plan: No need for procrit at this time for Hgb of 10.6, pt just received procrit about 2 weeks ago and he is currently on procrit monthly. Status: Chronic
[2017-08-15] MEDS: CALCIUM CARB-VIT D 500MG-200UN 1 EACH TAB PO SCH (18:29)
[2017-08-15] MEDS: HYDROcodone/APAP 7.5-325MG 1 EACH TAB PO PRN (20:18)
[2017-08-15 20:40] LABS: Glucose,Whole Blood 216 mg/dL (75-99)
[2017-08-15] MEDS ORDERED: CEPHALEXIN 500 MG CAP PO SCH (21:00)
[2017-08-15] MEDS: guaiFENesin 600 MG TABLET.ER PO SCH (21:02)
[2017-08-15] MEDS: MULTIVITAMINS, THERA 1 EACH TAB PO SCH (21:02)
--- NOTE | 2017-08-15 21:36 | P.CONS ---
History of Present Illness - Reason for Consult Consult date: 08/15/17 - Chief Complaint Fall with severe right hip pain - History of Present Illness 67-year-old male who is well-known to the infectious disease service with as many hospitalizations as well as his hidradenitis. He's had a couple hospitalizations in the last several months that included atrial fibrillation with nonsustained V. tach. He has underlying cardiac murmur. He's had vertigo and acute renal failure. He's had some time at the extended care facility in the past year but is now home Doing relatively well under the care of his . He was hospitalized earlier this year with a bout of congestive heart failure and is in relatively well since that time. The. The patient was bathing and suffered a fall and now presents with severe right sided hip pain. He's been evaluated by orthopedics. The hidradenitis is now being treated with Humira injections at home. This is on Fridays. This has been occurring for the last couple of months now. There is been decreasing amount of drainage. His skin is becoming less erythematous and inflamed. The amount of drainage is improving The family is pleased that there is showing some improvement given the many year history of lack of improvement. However was still must apply arch amounts of dressings on a daily basis to contain his drainage. Review of Systems HEENT:Denies headache or acute visual change. Denies sinus or mouth discomforts. Denies neck stiffness or pain. Denies significant oral cavity pain. Denies difficulty on swallowing. Lungs: Severe shortness of breath positive coughand production no hemoptysis. Cardiovascular: Does complain of shortness of breath, he is not having chest pain. He does have orthopnea and dyspnea on minimal exertion no syncope Gastrointestinal:Denies nausea, vomiting, diarrhea, constipation, hematemesis, melena, hematochezia. No no significant change of bowel habit noticed. Musculoskeletal: As per the HPI complaints of severe right-sided hip pain. Denies much pain to the left leg or to his back. Skin: Chronic skin lesions Neuro: Denies headache or visual change. Denies any new onset weakness or difficulty with ambulation. Denies falls or seizures. Psychiatric:Denies anxiety or depression. Endocrine: Denies significant fatigue, denies significant weight loss or weight gain. Past Medical History Past Medical History: Atrial Fibrillation, Asthma, Cancer, Diabetes Mellitus, Eye Disorder, GERD/Reflux, GI Bleed, Hearing Disorder / Deafness, Renal Disease , Respiratory Disorder, Skin Disorder Additional Past Medical History / Comment(s): Chronic renal failure, non-small cell lung cancer with a previous right middle lobe/right lower lobe resection, hydradenitis, obesity, chronic atrial fibrillation, diabetes mellitus, acid reflux, hearing impairment, previous history of ulceration related to hydradenitis"yeast in throat", History of Any Multi-Drug Resistant Organisms: None Reported Past Surgical History: Appendectomy, Cholecystectomy, Orthopedic Surgery Additional Past Surgical History / Comment(s): Right middle lobe/right lower lobe resection for non-small cell lung cancer, lap band, , UVP3, cyst removal off hip, surgery for perforated duodenal ulcer, ORIF for a left tib/fib fracture , 07-22-17 bronchoscopy. Past Anesthesia/Blood Transfusion Reactions: No Reported Reaction Additional Psychological History / Comment(s): Patient was a smoker of 2-/ packs per day for 47 years, QUIT 4-5 YEARS AGO. He denies any medical marijuana , marijuana, street drug or alcohol use. He has been on disability since 1990. From sustained work susatined lead poisoning there in 1971. 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 care for by the at the family home. No experience or travel. No animal exposures. Smoking Status: Former smoker - Past Family History Father Family Medical History: Cancer, Diabetes Mellitus, Liver Disease Mother Family Medical History: Cancer, Thyroid Disorder Medications and Allergies Home Medications and Allergies Comment(s): Current Medications Hydrocodone Bitart/Acetaminophen (Xenia 7.5-325) 1 each PO Q4H PRN PRN Reason: Moderate Pain Last Admin: 08/15/17 20:18 Dose: 1 each Albuterol Sulfate (Ventolin Nebulized) 2.5 mg INHALATION RT-QID PRN PRN Reason: Shortness Of Breath Last Admin: 08/15/17 19:40 Dose: 2.5 mg Allopurinol (Zyloprim) 100 mg PO DAILY [facility] Last Admin: 08/15/17 09:47 Dose: 100 mg Bacitracin (Bacitracin Oint) 1 applic TOPICAL DAILY [facility] Last Admin: 08/15/17 15:03 Dose: 1 applic Calcitriol (Rocaltrol) 0.25 mcg PO Th@1200 [facility] Calcium Carbonate (Oscal 500+D) 1 each PO BID-W/MEALS [facility] Last Admin: 08/15/17 18:29 Dose: 1 each Cephalexin (Keflex) 1,000 mg PO QAM [facility] Cephalexin (Keflex) 500 mg PO HS [facility] Last Admin: 08/15/17 21:02 Dose: 500 mg Citalopram Hydrobromide (Celexa) 40 mg PO DAILY [facility] Last Admin: 08/15/17 09:46 Dose: 40 mg Cyclobenzaprine HCl (Flexeril) 10 mg PO BID PRN PRN Reason: Muscle Spasm Last Admin: 08/15/17 15:36 Dose: 10 mg Diltiazem HCl (Cardizem Cd) 360 mg PO DAILY [facility] Last Admin: 08/15/17 09:46 Dose: 360 mg Furosemide (Lasix) 80 mg PO BID@0900,1600 [facility] Last Admin: 08/15/17 18:13 Dose: 80 mg Guaifenesin (Mucinex) 600 mg PO BID [facility] Last Admin: 08/15/17 21:02 Dose: 600 mg Heparin Sodium (Porcine) (Heparin) 5,000 unit SQ Q8HR [facility] Last Admin: 08/15/17 17:41 Dose: Not Given Linagliptin (Tradjenta) 5 mg PO DAILY [facility] Last Admin: 08/15/17 09:47 Dose: 5 mg Meclizine HCl (Antivert) 25 mg PO Q8H PRN PRN Reason: Vertigo Metolazone (Zaroxolyn) 5 mg PO MoWeFr@0900 [facility] Last Admin: 08/14/17 21:18 Dose: Not Given Metoprolol Succinate (Toprol Xl) 12.5 mg PO BID [facility] Last Admin: 08/15/17 21:02 Dose: 12.5 mg Morphine Sulfate (Morphine Sulfate (Inj)) 4 mg IV Q3HR PRN PRN Reason: Severe Pain Last Admin: 08/15/17 18:44 Dose: 4 mg Multivitamins (Theragran) 1 each PO HS [facility] Last Admin: 08/15/17 21:02 Dose: 1 each Naloxone HCl (Narcan) 0.2 mg IV Q2M PRN PRN Reason: Opioid Reversal Nystatin (Mycostatin Oral Susp) 500,000 unit PO QID [facility] Last Admin: 08/15/17 18:29 Dose: 500,000 unit Ondansetron HCl (Zofran) 4 mg IVP Q8HR PRN PRN Reason: Nausea And Vomiting Last Admin: 08/15/17 18:45 Dose: 4 mg Pantoprazole Sodium (Protonix) 40 mg PO AC-BRKFST [facility] Last Admin: 08/15/17 08:33 Dose: 40 mg Prednisone () 10 mg PO DAILY [facility] Last Admin: 08/15/17 09:47 Dose: 10 mg Spironolactone (Aldactone) 25 mg PO DAILY [facility] Last Admin: 08/15/17 09:47 Dose: 25 mg Humira subcutaneous on Fridays Home Medications Medication Instructions Recorded Confirmed Type Calcitriol [Rocaltrol] 0.25 mcg PO TH 06/06/16 08/14/17 History Albuterol Nebulized [Ventolin 2.5 mg INHALATION RT-QID PRN 10/23/16 08/14/17 History Nebulized] Calcium Carbonate/Vitamin D3 1 tab PO BID 10/23/16 08/14/17 History [Calcium 600-Vit D3 200 Tablet] Meclizine [Antivert] 25 mg PO Q8H PRN 10/23/16 08/14/17 History Multivitamins, Thera [Multivitamin 1 tab PO HS 10/23/16 08/14/17 History (formulary)] Linagliptin [Tradjenta] 5 mg PO DAILY tablet 10/27/16 08/14/17 Rx Adalimumab [Humira Pen Crohn-Uc-Hs 40 mg SQ FR 02/08/17 08/14/17 History Starter] Albuterol Inhaler [Ventolin Hfa 1 - 2 puff INHALATION RT-Q6H PRN 02/08/17 History Inhaler] Cephalexin [Keflex] 1,000 mg PO QAM 02/08/17 08/14/17 History Cephalexin [Keflex] 500 mg PO HS 02/08/17 08/14/17 History Diltiazem HCl [Cardizem LA] 360 mg PO DAILY 02/08/17 08/14/17 History Omeprazole [PriLOSEC] 20 mg PO BID 02/08/17 08/14/17 History Citalopram Hydrobromide [CeleXA] 40 mg PO DAILY 07/21/17 08/14/17 History Furosemide [Lasix] 80 mg PO BID 07/21/17 08/14/17 History Metolazone [Zaroxolyn] 5 mg PO MOWEFR 07/21/17 08/14/17 History Metoprolol Succinate [Toprol XL] 12.5 mg PO BID 07/21/17 08/14/17 History Spironolactone [Aldactone] 25 mg PO DAILY 07/21/17 08/14/17 History predniSONE 10 mg PO DAILY 07/21/17 08/14/17 History Allopurinol [Zyloprim] 100 mg PO DAILY 08/14/17 08/14/17 History Nystatin 100,000 Unit/ml Susp 5 ml PO QID 08/14/17 08/14/17 History [Mycostatin Oral Susp] Spironolactone [Aldactone] 25 mg PO DAILY 08/14/17 08/14/17 History guaiFENesin 400 mg PO TID 08/14/17 08/14/17 History Allergies Allergy/AdvReac Type Severity Reaction Status Date / Time clindamycin AdvReac Diarrhea Verified 08/14/17 14:34 Physical Exam Vitals: Vital Signs Temp Pulse Pulse Resp BP BP Pulse Ox 08/15/17 19:58 98.5 F 90 17 132/76 96 08/15/17 19:50 78 08/15/17 19:41 80 08/15/17 16:48 97.9 F 78 18 103/67 94 L 08/15/17 15:51 80 08/15/17 15:46 76 08/15/17 11:40 84 08/15/17 11:33 80 08/15/17 10:00 84 08/15/17 07:00 97.9 F 85 20 118/60 08/14/17 21:39 93 L Intake and Output 08/15/17 08/15/17 08/15/17 06:59 14:59 22:59 Intake Total 100 Output Total 200 420 Balance -100 -420 Intake: Oral 100 Output: Urine 200 420 Other: Voiding Method Urinal Urinal Urinal # Voids 2 Weight 133.81 kg Patient Weight 08/16/17 06:59 Weight 133.81 kg Pleasant 67-year-old gentleman who suffers from obesity who was miserable at this time. Complaining of severe pain of his right leg with any attempts at motion. Relates the time of his bone scan the motion was very painful. However pain medication has helped a bit. HEENT: Anicteric conjunctiva are pink and moist nasal mucosa grossly intact without significant lesions, there is no thrush. Neck: The neck is supple without significant lymphadenopathy or thyromegaly. Lungs: There is symmetrical air entry with some scattered crackles and wheezing throughout the lung rushing. There are no significant bronchial sounds. There is no egophony or dullness. Heart: Irregular with an audible S1 and S2 no S3 soft S4 There is no significant murmur click or rub, PMI was nondisplaced. Abdomen: Obese, Positive bowel sounds soft and nontender without palpable masses or organomegaly. There was no guarding or rebound. Extremities: The upper extremities have excellent pulses they are symmetric, no significant petechiae or telangiectasia. No splinter hemorrhages were noted. The left lower extremity is without significant tenderness at this time. Right lower extremity has severe pain upon manipulation. Any attempt to internally or externally rotate the limb causes him to have severe pain. There is at the chronic drainage without change from last evaluation. He has extensive areas of drainage on the buttocks bilaterally and inner thighs. Neuro: Awake alert oriented to person place and time. There are no acute new gross focal sensory motor deficits. Results CBC & Chem 7: 08/14/17 15:21 08/14/17 15:21 Labs: Abnormal Lab Results - Last 24 Hours (Table) 08/14/17 08/15/17 Range/Units 23:45 20:39 POC Glucose (mg/dL) 216 H (75-99) mg/dL Urine Blood Trace H (Negative) Urine RBC 9 H (0-5) /hpf Hyaline Casts 3 H (0-2) /lpf Urine Mucus Rare H (None) /hpf Laboratory Results WBC 24.2 k/uL (3.8-10.6) H 08/14/17 15:21 RBC 4.16 m/uL (4.30-5.90) L 08/14/17 15:21 Hgb 10.6 gm/dL (13.0-17.5) L 08/14/17 15:21 Hct 35.1 % (39.0-53.0) L 08/14/17 15:21 MCV 84.3 fL (80.0-100.0) 08/14/17 15:21 MCH 25.5 pg (25.0-35.0) 08/14/17 15:21 MCHC 30.3 g/dL (31.0-37.0) L 08/14/17 15:21 RDW 17.1 % (11.5-15.5) H 08/14/17 15:21 Plt Count 486 k/uL (150-450) H 08/14/17 15:21 Neutrophils % 91 % 08/14/17 15:21 Lymphocytes % 5 % 08/14/17 15:21 Monocytes % 3 % 08/14/17 15:21 Eosinophils % 0 % 08/14/17 15:21 Basophils % 0 % 08/14/17 15:21 Neutrophils # 21.9 k/uL (1.3-7.7) H 08/14/17 15:21 Lymphocytes # 1.1 k/uL (1.0-4.8) 08/14/17 15:21 Monocytes # 0.8 k/uL (0-1.0) 08/14/17 15:21 Eosinophils # 0.1 k/uL (0-0.7) 08/14/17 15:21 Basophils # 0.1 k/uL (0-0.2) 08/14/17 15:21 Hypochromasia Marked 08/14/17 15:21 Anisocytosis Slight 08/14/17 15:21 Sodium 133 mmol/L (137-145) L 08/14/17 15:21 Potassium 4.3 mmol/L (3.5-5.1) 08/14/17 15:21 Chloride 93 mmol/L (98-107) L 08/14/17 15:21 Carbon Dioxide 27 mmol/L (22-30) 08/14/17 15:21 Anion Gap 13 mmol/L 08/14/17 15:21 BUN 31 mg/dL (9-20) H 08/14/17 15:21 Creatinine 1.68 mg/dL (0.66-1.25) H 08/14/17 15:21 Est GFR (MDRD) Af Amer 49 (>60 ml/min/1.73 sqM) 08/14/17 15:21 Est GFR (MDRD) Non-Af 41 (>60 ml/min/1.73 sqM) 08/14/17 15:21 Glucose 136 mg/dL (74-99) H 08/14/17 15:21 POC Glucose (mg/dL) 216 mg/dL (75-99) H 08/15/17 20:39 POC Glu [employer] ID Daphney Thompson 08/15/17 20:39 Calcium 6.7 mg/dL (8.4-10.2) L 08/14/17 15:21 Urine Color Yellow 08/14/17 23:45 Urine Appearance Clear (Clear) 08/14/17 23:45 Urine pH 5.5 (5.0-8.0) 08/14/17 23:45 Ur Specific [place] 1.011 (1.001-1.035) 08/14/17 23:45 Urine Protein Negative (Negative) 08/14/17 23:45 Urine Glucose (UA) Negative (Negative) 08/14/17 23:45 Urine Ketones Negative (Negative) 08/14/17 23:45 Urine Blood Trace (Negative) H 08/14/17 23:45 Urine Nitrite Negative (Negative) 08/14/17 23:45 Urine Bilirubin Negative (Negative) 08/14/17 23:45 Urine Urobilinogen <2.0 mg/dL (<2.0) 08/14/17 23:45 Ur Leukocyte Esterase Negative (Negative) 08/14/17 23:45 Urine RBC 9 /hpf (0-5) H 08/14/17 23:45 Urine WBC 1 /hpf (0-5) 08/14/17 23:45 Hyaline Casts 3 /lpf (0-2) H 08/14/17 23:45 Urine Mucus Rare /hpf (None) H 08/14/17 23:45 Assessment and Plan (1) Fall Status: Acute (2) Acute right hip pain Status: Acute (3) Rib pain on left side Status: Acute (4) Hidradenitis suppurativa Narrative/Plan: 67-year-old male has multiple medical troubles including his history of squamous cell lung cancer fifth being monitored by oncology. He is followed in the infectious disease office for the treatment of his hidradenitis which is being treated currently with Humira. There has been some improvement of his significant disease state but not resolution. The last office visit the and I agreed that we would continue treatment at least until the next quarter. He tolerated this very well. He has had no worsening of his anemia or renal failure . While in hospital his Humira is on hold. He is currently very miserable because of the fall. Orthopedics is following. MRI has been requested and since the patient has been instructed he will go and feet first over he will proceed to this test to evaluate for the possibility of fracture to the right leg and hip given his very severe pain at this time. Status: Acute
[2017-08-16] MEDS: MORPHINE SULFATE 4 MG/ML SYRINGE IV PRN ×2 (06:41→09:34)
[2017-08-16] MEDS: ALBUTEROL NEBULIZED 2.5 MG/3 ML INHALATION PRN ×4 (07:02→19:46)
[2017-08-16 07:31] LABS: Glucose,Whole Blood 164 mg/dL (75-99)
[2017-08-16] MEDS ORDERED: methylPREDNISolone SOD SUCCI 125 MG/2 ML VIAL IV STA (07:48)
[2017-08-16] MEDS ORDERED: FUROSEMIDE 10 MG/ML 4 ML VIAL IV STA (07:49)
[2017-08-16 08:10] LABS: Anisocytosis Slight; Basophils # (A) 0.1 k/uL (0-0.2); Basophils % (A) 0 %; CH 25.2; CHCM 29.6; Eosinophils # (A) 0.2 k/uL (0-0.7); Eosinophils % (A) 1 %; HCT 37.3 % (39.0-53.0); HDW 2.58; Hypochromasia Marked; Luc # (Auto) 0.17; Luc % (Auto) 1; Lymphocytes # (A) 1.5 k/uL (1.0-4.8); Lymphocytes % (A) 6 %; MCH 25.3 pg (25.0-35.0); MCHC 29.5 g/dL (31.0-37.0); MCV 85.7 fL (80.0-100.0); Mean Platelet Volume 7.2; Monocytes % (A) 4 %; Neutrophils # (A) 20.9 k/uL (1.3-7.7); Neutrophils % (A) 88 %; RBC 4.36 m/uL (4.30-5.90); RDW 17.9 % (11.5-15.5); WBC 23.7 k/uL (3.8-10.6); WBC (Perox) 21.73
--- NOTE | 2017-08-16 08:10 | XR ---
EXAMINATION TYPE: XR chest 1V portable DATE OF EXAM: 08/16/2017 CLINICAL HISTORY: Difficulty breathing progress study. History of right lung surgery. TECHNIQUE: Single AP portable upright view of the chest is obtained. COMPARISON: Chest x-ray from 2 days earlier. Outside chest CT July 21, 2017. FINDINGS: There is redemonstration of right-sided volume loss from right-sided partial pneumonectomy . There is increased in right-sided volume loss in right lung opacity consistent with developing atel ectasis and/or infiltrate. There is chronic right basilar scarring redemonstrated. Main pulmonary art eries are enlarged seen better on CT. Cardiac silhouette size is stable and mildly enlarged with athe rosclerotic thoracic aorta. Left lung remains clear. Osseous structures are demineralized. IMPRESSION: Abrupt new right lung opacity and increase in right volume loss suggests atelectasis rela riddhi to mucous plugging, developing edema and/or infiltrates also is not excluded. Background of chron ic emphysematous change, mild cardiomegaly, and right-sided partial pneumonectomy changes is noted.
[2017-08-16 08:19] LABS: Potassium 4.2 mmol/L (3.5-5.1); Total Bilirubin 0.3 mg/dL (0.2-1.3)
[2017-08-16 08:28] LABS: Calcium 6.5 mg/dL (8.4-10.2)
[2017-08-16 08:53] LABS: Glucose,Whole Blood 169 mg/dL (75-99)
[2017-08-16] MEDS ORDERED: CEPHALEXIN 500 MG CAP PO SCH (09:00)
--- NOTE | 2017-08-16 09:22 | XR ---
EXAMINATION TYPE: XR chest 1V portable DATE OF EXAM: 08/16/2017 COMPARISON: 08/16/2017 HISTORY: Shortness of breath TECHNIQUE: Single frontal view of the chest is obtained. FINDINGS: Right-sided consolidation and pleural effusion. Left lung clear. Pleural thickening noted on the left. Arthropathy of the shoulders and diffuse osteopenia. The heart is enlarged. IMPRESSION: 1. There is right-sided consolidation and pleural effusion.
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
[2017-08-16] MEDS ORDERED: PROPOFOL 10 MG/ML 20 ML VIAL IV ONE (10:24)
[2017-08-16] MEDS ORDERED: LIDOCAINE 1% INJ 10MG/ML (20 ML MDV) ONE (10:24)
[2017-08-16] MEDS ORDERED: IV FLUID CONTINUATION 1,000 ML IV ONE (10:26)
[2017-08-16] MEDS: CALCIUM CARB-VIT D 500MG-200UN 1 EACH TAB PO SCH ×2 (10:36→11:16)
[2017-08-16] MEDS: PANTOPRAZOLE 40 MG TABLET PO SCH (10:36)
[2017-08-16] MEDS: HEPARIN SODIUM,PORCINE 5,000 UNIT/ML 1 ML VIAL SQ SCH ×2 (10:40→18:32)
[2017-08-16] MEDS: AZITHROMYCIN 500 MG in SODIUM CHLORIDE 0.9% 250 ML IVPB SCH (10:40)
[2017-08-16] MEDS ORDERED: LIDOCAINE 2% INJ 20 MG/ML INTRATRACH ONE (10:46)
[2017-08-16] MEDS: guaiFENesin 600 MG TABLET.ER PO SCH ×2 (11:17→21:02)
[2017-08-16] MEDS: FUROSEMIDE 80 MG TAB PO SCH ×2 (11:17→18:32)
[2017-08-16] MEDS: METOLAZONE 5 MG TAB PO SCH (11:17)
[2017-08-16] MEDS: CITALOPRAM HYDROBROMIDE 20 MG TAB PO SCH (11:18)
[2017-08-16] MEDS: LINAGLIPTIN 5 MG TABLET PO SCH (11:18)
[2017-08-16] MEDS: ALLOPURINOL 100 MG TAB PO SCH (11:19)
[2017-08-16] MEDS: SPIRONOLACTONE 25 MG TAB PO SCH (11:19)
[2017-08-16] MEDS: NYSTATIN 100,000 UNIT/ML SUSP 500,000 UNIT/5 ML CUP PO SCH ×4 (11:19→21:03)
[2017-08-16] MEDS: predniSONE 10 MG TAB PO SCH (11:19)
[2017-08-16] MEDS: METOPROLOL SUCCINATE (ER) 25 MG TAB.ER.24H PO SCH ×2 (11:21→21:02)
[2017-08-16] MEDS: DILTIAZEM CD 180 MG CAP.ER.24H PO SCH (11:21)
[2017-08-16 11:38] LABS: ABG PCO2 46 mmHg (35-45); ABG PH 7.46 (7.35-7.45); ABG PO2 47 mmHg (83-108)
[2017-08-16 11:39] LABS: ABG HCO3 32 mmol/L (21-25); ABG TCO2 34 mmol/L (19-24)
--- NOTE | 2017-08-16 11:48 | PCN ---
PROCEDURE NOTE BRONCHOSCOPY, BRONCHOALVEOLAR LAVAGE OF THE RIGHT LUNG, EXTRACTION OF MUCUS PLUG FROM RIGHT MAINSTEM BRONCHUS AND RIGHT UPPER LOBE: PREOPERATIVE DIAGNOSIS: Right lung collapse secondary to mucus plugging involving the right mainstem bronchus. POSTOPERATIVE DIAGNOSIS: Right lung collapse secondary to mucus plugging involving the right mainstem bronchus. ANESTHESIA USES: Patient was given IV conscious sedation by CABLE PULLER. PROCEDURE: Patient was prepared according to the bronchoscopy protocol. He was placed in the supine position, O2 was applied via high-flow nasal cannula and a 100% Venti mask applied over the mouth. After adequate IV conscious sedation, we continued to monitor his O2 saturation continuously and we monitored his pulse oximetry, cardiac rhythm was monitored continuously with blood pressure was intermittently monitored. As soon as the IV conscious sedation was adequate, the left nares was anesthetized with lidocaine, and tip of the bronchoscope was advanced through the left naris down to the area of the vocal cords. Lidocaine was applied over the vocal cord and the bronchoscope was advanced further down. As we entered the trachea, there was no evidence of any abnormality; however, as the michelle was visualized, there was clearly a significant mucus plug involving the right mainstem bronchus with complete occlusion of the right mainstem bronchus, and extending down towards the. There was also some mucus plugging noted to be spilling over the michelle into the left mainstem bronchus, but it was not totally occluded. Washings and lavage of the right mainstem bronchus was done. Until all the secretions were cleared completely. I also lavage of the right upper lobe, and I was able to visualize the right upper lobe, I visualized a small opening into the right middle lobe, and there was a stump from previous right lower lobectomy noted. No endobronchial tumor was noted. Pictures before and after the procedure were done. Left side was also examined, no evidence of any significant abnormality on the left side. Except for minimal mucous secretions noted on the medial wall of the left mainstem bronchus and this was suctioned easily. The procedure was well tolerated, patient was switched after the procedure to BiPAP, and no evidence of any immediate complications. The fluid we obtained was sent for different diagnostic studies. MMODL / IJN: [id number] /
[2017-08-16] MEDS: LORazepam 2 MG/ML INJ IV PRN (12:31)
[2017-08-16] MEDS: PIPERACILLIN-TAZOBACTAM 3.375 GM in DEXTROSE/WATER 1 50ML.BAG IVPB SCH ×2 (12:32→18:39)
--- NOTE | 2017-08-16 13:59 | P.PN ---
Subjective Principal diagnosis: Acute fall and possible right fracture This is a 67-year-old white male with history of multiple medical problems including COPD, chronic congestive heart failure, morbid obesity, previous lobectomy for non-small cell lung cancer over 5 years ago, chronic atrial fibrillation, chronic renal failure, patient was admitted this time on 2016 because he fell as he was drying himself off and put one leg on the bathtub to dry off then switched legs in the process he fell. Patient fell on the left side, however apparently there was some hyperextension of the right hip , came in with severe pain involving the right hip. Workup so far included CT of the hip, x-rays of the hip, are negative for possible fracture. Bone scan is scheduled to confirm that there is no evidence of right hip fracture. Considering his other medical problems including COPD and history of lung cancer as well as his chronic congestive heart failure, and chronic right lower lobe changes related to previous surgery, I was asked to see him on consultation. Presently the patient has minimal dyspnea on exertion, no cough no wheezing no shortness of breath at rest, no chest pain. Patient is usually maintained on a 10 mg of prednisone is also on updraft treatments for COPD. And the patient is on relatively high dose of diuretics for chronic congestive heart failure. His clinical pulmonary and cardiac status seemed to be relatively stable at this point. The patient's main complaint at this point is mostly right hip pain. And difficulty to bear any weight on the right hip. Patient was seen by orthopedics and workup is in progress, awaiting to have a bone scan. But so far the workup is negative for fracture. Patient was reevaluated today on 08/16/2017, apparently the patient developed a significant desaturation early this morning, even when he was placed on a nonrebreather mask, his O2 saturation was marginal. The A TEAM was called to see the patient, and a chest x-ray done showed evidence of almost near complete collapse of the right lung. Obviously this is consistent with mucous plugging involving the right mainstem bronchus. Patient had a previous right lower lobectomy, but when I came in and reviewed the chest x-ray, the findings are clearly consistent with a right mainstem mucous plug. Patient was transferred to the ICU, placed on BiPAP, and I have arranged for immediate stat bronchoscopy at bedside in the ICU. Bronchoscopy was performed, please refer to the full operative report of the bronchoscopy. Indeed there was significant mucus plugging involving the right mainstem bronchus and this was cleared by suctioning. Discussed all the findings with the patient and his family at bedside after the procedure. Patient felt better and after the procedure I placed him back on BiPAP to keep the right lung expanded. May even require another bronchoscopy tomorrow if he collapses again. In the meantime I started the patient on antibiotics in the form of Zosyn, cultures from the fluid obtained from the right lung and the right mainstem bronchus are pending. ABG earlier today showed a pO2 of 47 pCO2 of 46 pH of 7.46. WBC count was noted to be 23.7 hemoglobin is 11. Patient did receive Lasix earlier however his desaturation was mostly pulmonary in nature related to lung collapse rather than cardiac in nature. Objective - Vital Signs Vital signs: Vital Signs Temp 98.9 F 08/16/17 10:00 Pulse 128 H 08/16/17 13:00 Resp 30 H 08/16/17 13:00 BP 117/69 08/16/17 12:00 Pulse Ox 100 08/16/17 13:00 Intake & Output 08/15/17 08/16/17 08/16/17 18:59 06:59 18:59 Intake Total 600 500 Output Total 420 300 Balance -420 300 500 Weight 133.81 kg Intake: IV 10 100 saline flush 10 Intake, IV Titration 400 Amount Azithromycin 500 mg In 250 Sodium Chloride 0.9% 250 ml @ 125 mls/hr IVPB DAILY [facility] Rx#:[id number] Piperacillin-Tazobactam 3 50 .375 gm In Dextrose/Water 1 50ml.bag @ 12.5 mls/hr IVPB Q8HR [facility] Rx#: [id number] cefTRIAXone 1,000 mg In 100 Sodium Chloride 0.9% 50 ml @ 100 mls/hr IVPB Q12HR [facility] Rx#:[id number] Oral 590 Output: Urine 420 300 Other: Voiding Method Urinal Urinal Urinal # Voids 2 - Exam Physical Exam: Revealed a 67-year-old white male, obese, on BiPAP, seen in the intensive care unit shortly after transfer. Patient is in a mild respiratory distress. HEENT:[Neck is supple.] [No neck masses.] [No thyromegaly.] [No JVD.] Patient has BiPAP in place. Chest: [Diminished breath sounds on the right side, left side is relatively clear. Diffuse rhonchi and wheezes more so on the right side and more so on forced expiratory maneuver..] Cardiac Exam: Distant S1 and S2, no S3 gallop, no murmur.] Abdomen: [Obese, Soft, nontender, no megaly, no rebound, no guarding, normal bowel sounds.] Extremities: [No clubbing, 2+ bipedal edema, no cyanosis.] Chronic venous stasis changes. Neurological Exam: [No focal neurologic deficit.] Musculoskeletal: Continues to have difficulty in the range of motion of the right hip, pain with any movement of the hip. Otherwise unremarkable. Skin: Chronic venous stasis noted in the lower extremities and 2+ bipedal edema noted. Psychiatric: Normal mental status exam, normal affect, no mood changes. - Labs CBC & Chem 7: 08/16/17 07:03 08/16/17 07:03 Labs: Abnormal Lab Results - Last 24 Hours (Table) 08/15/17 08/16/17 08/16/17 Range/Units 20:39 07:03 07:03 WBC 23.7 H (3.8-10.6) k/uL Hgb 11.0 L (13.0-17.5) gm/dL Hct 37.3 L (39.0-53.0) % MCHC 29.5 L (31.0-37.0) g/dL RDW 17.9 H (11.5-15.5) % Plt Count 584 H (150-450) k/uL Neutrophils # 20.9 H (1.3-7.7) k/uL ABG pH (7.35-7.45) ABG pCO2 (35-45) mmHg ABG pO2 (83-108) mmHg ABG HCO3 (21-25) mmol/L ABG Total CO2 (19-24) mmol/L ABG O2 Saturation (94-97) % Sodium 136 L (137-145) mmol/L Chloride 90 L (98-107) mmol/L Carbon Dioxide 33 H (22-30) mmol/L BUN 35 H (9-20) mg/dL Creatinine 1.97 H (0.66-1.25) mg/dL Glucose 155 H (74-99) mg/dL POC Glucose (mg/dL) 216 H (75-99) mg/dL Calcium 6.5 L* (8.4-10.2) mg/dL AST 13 L (17-59) U/L ALT 18 L (21-72) U/L Albumin 2.9 L (3.5-5.0) g/dL 08/16/17 08/16/17 08/16/17 Range/Units 07:28 08:01 08:51 WBC (3.8-10.6) k/uL Hgb (13.0-17.5) gm/dL Hct (39.0-53.0) % MCHC (31.0-37.0) g/dL RDW (11.5-15.5) % Plt Count (150-450) k/uL Neutrophils # (1.3-7.7) k/uL ABG pH 7.46 H (7.35-7.45) ABG pCO2 46 H (35-45) mmHg ABG pO2 47 L (83-108) mmHg ABG HCO3 32 H (21-25) mmol/L ABG Total CO2 34 H (19-24) mmol/L ABG O2 Saturation 85.0 L (94-97) % Sodium (137-145) mmol/L Chloride (98-107) mmol/L Carbon Dioxide (22-30) mmol/L BUN (9-20) mg/dL Creatinine (0.66-1.25) mg/dL Glucose (74-99) mg/dL POC Glucose (mg/dL) 164 H 169 H (75-99) mg/dL Calcium (8.4-10.2) mg/dL AST (17-59) U/L ALT (21-72) U/L Albumin (3.5-5.0) g/dL Assessment and Plan Plan: Impression: 1 acute fall, possible right hip fracture, workup is in progress. Patient is being followed by orthopedics, bone scan is pending, but so far the workup is negative for hip fracture. 2 acute hypoxic respiratory failure secondary to right lung collapse secondary to mucus plugging noted in the right mainstem bronchus., Status post bronchoscopy and suctioning of mucous plugs in the right mainstem bronchus. This was done on 08/16/2017. Excellent immediate results. 2 history of multiple comorbidities including severe COPD, bronchogenic carcinoma and previous lobectomy, chronic atrial fibrillation, chronic systolic congestive heart failure, type 2 diabetes, history of GERD without esophagitis, history of chronic renal failure, history of right lower lobectomy, history of hearing impairment, history of hidradenitis, and history of morbid obesity. Recommendation: Continue to monitor the patient in the ICU, keep on BiPAP for now, antibiotics were started in the form of Zosyn, however the antibiotics will be adjusted according to the final culture from the BAL. Discussed his condition with him and his , I have shown his and the patient pictures of the endobronchial findings with the mucus plugging, and I have explained to them my plans and the whole clinical scenario. His hip condition is being addressed by orthopedics on the case. Patient is considered presently critically ill, critical care time is 35 minutes not including the time spent on the procedures. Time with Patient: Greater than 30
--- NOTE | 2017-08-16 14:09 | P.PN ---
Subjective Principal diagnosis: Right hip and thigh pain Patient is 67-year-old male seen in the ICU this afternoon where we were consulted for hip and thigh pain status post fall. Imaging studies including a computed tomography scan of the hip, x-rays of the pelvis and femur, and total body bone scan have been essentially negative for fracture of the femur or hip. He has continued to have right hip and thigh pain and is described a hyperextension type injury of the hip. He has been admitted to the ICU for respiratory distress and is being managed by pulmonology and internal medicine. Objective - Vital Signs Vital signs: Vital Signs Temp 98.9 F 08/16/17 10:00 Pulse 128 H 08/16/17 13:00 Resp 30 H 08/16/17 13:00 BP 117/69 08/16/17 12:00 Pulse Ox 100 08/16/17 13:00 Intake & Output 08/15/17 08/16/17 08/16/17 18:59 06:59 18:59 Intake Total 600 500 Output Total 420 300 Balance -420 300 500 Weight 133.81 kg Intake: IV 10 100 saline flush 10 Intake, IV Titration 400 Amount Azithromycin 500 mg In 250 Sodium Chloride 0.9% 250 ml @ 125 mls/hr IVPB DAILY [facility] Rx#:[id number] Piperacillin-Tazobactam 3 50 .375 gm In Dextrose/Water 1 50ml.bag @ 12.5 mls/hr IVPB Q8HR [facility] Rx#: [id number] cefTRIAXone 1,000 mg In 100 Sodium Chloride 0.9% 50 ml @ 100 mls/hr IVPB Q12HR [facility] Rx#:[id number] Oral 590 Output: Urine 420 300 Other: Voiding Method Urinal Urinal Urinal # Voids 2 - Exam Unchanged exam with right lower extremity. There is no deformity. There is no erythema or ecchymoses at the hip or thigh. He has pain in the right thigh with active range of motion at the hip. There is mild tenderness about the thigh anterior and laterally. Neurovascular status is intact with motor and sensation throughout the right lower extremity. 1+ dorsalis pedis pulses less than 2 second cap refill is present. Calf is soft and nontender. - Constitutional General appearance: Present: no acute distress - Psychiatric Psychiatric: Present: A&O x's 3, appropriate affect, intact judgment & insight - Labs CBC & Chem 7: 08/16/17 07:03 08/16/17 07:03 Labs: Abnormal Lab Results - Last 24 Hours (Table) 08/15/17 08/16/17 08/16/17 Range/Units 20:39 07:03 07:03 WBC 23.7 H (3.8-10.6) k/uL Hgb 11.0 L (13.0-17.5) gm/dL Hct 37.3 L (39.0-53.0) % MCHC 29.5 L (31.0-37.0) g/dL RDW 17.9 H (11.5-15.5) % Plt Count 584 H (150-450) k/uL Neutrophils # 20.9 H (1.3-7.7) k/uL ABG pH (7.35-7.45) ABG pCO2 (35-45) mmHg ABG pO2 (83-108) mmHg ABG HCO3 (21-25) mmol/L ABG Total CO2 (19-24) mmol/L ABG O2 Saturation (94-97) % Sodium 136 L (137-145) mmol/L Chloride 90 L (98-107) mmol/L Carbon Dioxide 33 H (22-30) mmol/L BUN 35 H (9-20) mg/dL Creatinine 1.97 H (0.66-1.25) mg/dL Glucose 155 H (74-99) mg/dL POC Glucose (mg/dL) 216 H (75-99) mg/dL Calcium 6.5 L* (8.4-10.2) mg/dL AST 13 L (17-59) U/L ALT 18 L (21-72) U/L Albumin 2.9 L (3.5-5.0) g/dL 08/16/17 08/16/17 08/16/17 Range/Units 07:28 08:01 08:51 WBC (3.8-10.6) k/uL Hgb (13.0-17.5) gm/dL Hct (39.0-53.0) % MCHC (31.0-37.0) g/dL RDW (11.5-15.5) % Plt Count (150-450) k/uL Neutrophils # (1.3-7.7) k/uL ABG pH 7.46 H (7.35-7.45) ABG pCO2 46 H (35-45) mmHg ABG pO2 47 L (83-108) mmHg ABG HCO3 32 H (21-25) mmol/L ABG Total CO2 34 H (19-24) mmol/L ABG O2 Saturation 85.0 L (94-97) % Sodium (137-145) mmol/L Chloride (98-107) mmol/L Carbon Dioxide (22-30) mmol/L BUN (9-20) mg/dL Creatinine (0.66-1.25) mg/dL Glucose (74-99) mg/dL POC Glucose (mg/dL) 164 H 169 H (75-99) mg/dL Calcium (8.4-10.2) mg/dL AST (17-59) U/L ALT (21-72) U/L Albumin (3.5-5.0) g/dL - Imaging and Cardiology Right Femur x-rays negative for fractures or lesions. Total body bone scan showed no increased uptake in the right femur or hip. Assessment and Plan (1) Right hip pain Narrative/Plan: Studies have been negative for hip or femur fracture. He may have a hyperextension/muscle strain injury in the anterior muscle groups of the thigh and hip. I reviewed this patient with Dr. Moran. We don't believe there is acute surgical or emergent intervention required. Would recommend pain management and slow progressive therapy. He may follow-up as an outpatient for further evaluation and management. We will sign off for now thank you.. Status: Acute Time with Patient: Less than 30
[2017-08-16] MEDS: BACITRACIN 500 UNIT/GM OINT 28.4 GM TUBE TOPICAL SCH (14:45)
[2017-08-16 18:20] LABS: Glucose,Whole Blood 244 mg/dL (75-99)
[2017-08-16] MEDS: INSULIN LISPRO (humaLOG) 300 UNIT/3 ML VIAL SQ SCH ×2 (19:48→21:02)
--- NOTE | 2017-08-16 20:47 | P.PN ---
Subjective Principal diagnosis: Fall with left hip pain 67-year-old male who is well-known to the infectious disease service with as many hospitalizations as well as his hidradenitis. He's had a couple hospitalizations in the last several months that included atrial fibrillation with nonsustained V. tach. He has underlying cardiac murmur. He's had vertigo and acute renal failure. He's had some time at the extended care facility in the past year but is now home Doing relatively well under the care of his . He was hospitalized earlier this year with a bout of congestive heart failure and is in relatively well since that time. The. The patient was bathing and suffered a fall and now presents with severe right sided hip pain. He's been evaluated by orthopedics. The hidradenitis is now being treated with Humira injections at home. This is on Fridays. This has been occurring for the last couple of months now. There is been decreasing amount of drainage. His skin is becoming less erythematous and inflamed. The amount of drainage is improving The family is pleased that there is showing some improvement given the many year history of lack of improvement. However was still must apply large amounts of dressings on a daily basis to contain his drainage. The patient never became progressively more short of breath. Was transferred to intensive care unit. He's been seen by pulmonary and underwent bronchoscopy for removal of large mucous plugging to the right lung. Patient remains on BiPAP but is more stable at this time. Antimicrobial therapy was initiated with concerns to pneumonia with this pulmonary process. Cultures are in process. Objective - Vital Signs Vital signs: Vital Signs Temp 97.8 F 08/16/17 20:00 Pulse 77 08/16/17 20:00 Resp 16 08/16/17 20:00 BP 96/63 08/16/17 20:00 Pulse Ox 100 08/16/17 20:00 Intake & Output 08/16/17 08/16/17 08/17/17 06:59 18:59 06:59 Intake Total 600 740 Output Total 300 290 45 Balance 300 450 -45 Intake: IV 10 100 saline flush 10 Intake, IV Titration 400 Amount Azithromycin 500 mg In 250 Sodium Chloride 0.9% 250 ml @ 125 mls/hr IVPB DAILY [facility] Rx#:[id number] Piperacillin-Tazobactam 3 50 .375 gm In Dextrose/Water 1 50ml.bag @ 12.5 mls/hr IVPB Q8HR [facility] Rx#: [id number] cefTRIAXone 1,000 mg In 100 Sodium Chloride 0.9% 50 ml @ 100 mls/hr IVPB Q12HR [facility] Rx#:[id number] Oral 590 240 Output: Urine 300 290 45 Other: Voiding Method Urinal Indwelling Catheter - Exam Pleasant 67-year-old gentleman who suffers from obesity who was miserable at this time. BiPAP though is being tolerated. Hip pain is better treated. He is less short of breath. HEENT: Anicteric conjunctiva are pink and moist nasal mucosa grossly intact without significant lesions, there is no thrush. Neck: The neck is supple without significant lymphadenopathy or thyromegaly. Lungs: There is symmetrical air entry with evidence of some crackles at the bilateral bases right greater than left. Some expiratory wheezes are heard. Heart: Irregular with an audible S1 and S2 no S3 soft S4 There is no significant murmur click or rub, PMI was nondisplaced. Abdomen: Obese, Positive bowel sounds soft and nontender without palpable masses or organomegaly. There was no guarding or rebound. Extremities: The upper extremities have excellent pulses they are symmetric, no significant petechiae or telangiectasia. No splinter hemorrhages were noted. The left lower extremity is without significant tenderness at this time. Right lower extremity has severe pain upon manipulation. Any attempt to internally or externally rotate the limb causes him to have severe pain. There is at the chronic drainage without change from last evaluation. He has extensive areas of drainage on the buttocks bilaterally and inner thighs. Neuro: Awake alert oriented to person place and time. There are no acute new gross focal sensory motor deficits. - Labs CBC & Chem 7: 08/16/17 07:03 08/16/17 07:03 Labs: Abnormal Lab Results - Last 24 Hours (Table) 08/15/17 08/16/17 08/16/17 Range/Units 20:39 07:03 07:03 WBC 23.7 H (3.8-10.6) k/uL Hgb 11.0 L (13.0-17.5) gm/dL Hct 37.3 L (39.0-53.0) % MCHC 29.5 L (31.0-37.0) g/dL RDW 17.9 H (11.5-15.5) % Plt Count 584 H (150-450) k/uL Neutrophils # 20.9 H (1.3-7.7) k/uL ABG pH (7.35-7.45) ABG pCO2 (35-45) mmHg ABG pO2 (83-108) mmHg ABG HCO3 (21-25) mmol/L ABG Total CO2 (19-24) mmol/L ABG O2 Saturation (94-97) % Sodium 136 L (137-145) mmol/L Chloride 90 L (98-107) mmol/L Carbon Dioxide 33 H (22-30) mmol/L BUN 35 H (9-20) mg/dL Creatinine 1.97 H (0.66-1.25) mg/dL Glucose 155 H (74-99) mg/dL POC Glucose (mg/dL) 216 H (75-99) mg/dL Calcium 6.5 L* (8.4-10.2) mg/dL AST 13 L (17-59) U/L ALT 18 L (21-72) U/L Albumin 2.9 L (3.5-5.0) g/dL 08/16/17 08/16/17 08/16/17 Range/Units 07:28 08:01 08:51 WBC (3.8-10.6) k/uL Hgb (13.0-17.5) gm/dL Hct (39.0-53.0) % MCHC (31.0-37.0) g/dL RDW (11.5-15.5) % Plt Count (150-450) k/uL Neutrophils # (1.3-7.7) k/uL ABG pH 7.46 H (7.35-7.45) ABG pCO2 46 H (35-45) mmHg ABG pO2 47 L (83-108) mmHg ABG HCO3 32 H (21-25) mmol/L ABG Total CO2 34 H (19-24) mmol/L ABG O2 Saturation 85.0 L (94-97) % Sodium (137-145) mmol/L Chloride (98-107) mmol/L Carbon Dioxide (22-30) mmol/L BUN (9-20) mg/dL Creatinine (0.66-1.25) mg/dL Glucose (74-99) mg/dL POC Glucose (mg/dL) 164 H 169 H (75-99) mg/dL Calcium (8.4-10.2) mg/dL AST (17-59) U/L ALT (21-72) U/L Albumin (3.5-5.0) g/dL 08/16/17 Range/Units 18:18 WBC (3.8-10.6) k/uL Hgb (13.0-17.5) gm/dL Hct (39.0-53.0) % MCHC (31.0-37.0) g/dL RDW (11.5-15.5) % Plt Count (150-450) k/uL Neutrophils # (1.3-7.7) k/uL ABG pH (7.35-7.45) ABG pCO2 (35-45) mmHg ABG pO2 (83-108) mmHg ABG HCO3 (21-25) mmol/L ABG Total CO2 (19-24) mmol/L ABG O2 Saturation (94-97) % Sodium (137-145) mmol/L Chloride (98-107) mmol/L Carbon Dioxide (22-30) mmol/L BUN (9-20) mg/dL Creatinine (0.66-1.25) mg/dL Glucose (74-99) mg/dL POC Glucose (mg/dL) 244 H (75-99) mg/dL Calcium (8.4-10.2) mg/dL AST (17-59) U/L ALT (21-72) U/L Albumin (3.5-5.0) g/dL Laboratory Results WBC 23.7 k/uL (3.8-10.6) H 08/16/17 07:03 RBC 4.36 m/uL (4.30-5.90) 08/16/17 07:03 Hgb 11.0 gm/dL (13.0-17.5) L 08/16/17 07:03 Hct 37.3 % (39.0-53.0) L 08/16/17 07:03 MCV 85.7 fL (80.0-100.0) 08/16/17 07:03 MCH 25.3 pg (25.0-35.0) 08/16/17 07:03 MCHC 29.5 g/dL (31.0-37.0) L 08/16/17 07:03 RDW 17.9 % (11.5-15.5) H 08/16/17 07:03 Plt Count 584 k/uL (150-450) H 08/16/17 07:03 Neutrophils % 88 % 08/16/17 07:03 Lymphocytes % 6 % 08/16/17 07:03 Monocytes % 4 % 08/16/17 07:03 Eosinophils % 1 % 08/16/17 07:03 Basophils % 0 % 08/16/17 07:03 Neutrophils # 20.9 k/uL (1.3-7.7) H 08/16/17 07:03 Lymphocytes # 1.5 k/uL (1.0-4.8) 08/16/17 07:03 Monocytes # 1.0 k/uL (0-1.0) 08/16/17 07:03 Eosinophils # 0.2 k/uL (0-0.7) 08/16/17 07:03 Basophils # 0.1 k/uL (0-0.2) 08/16/17 07:03 Hypochromasia Marked 08/16/17 07:03 Anisocytosis Slight 08/16/17 07:03 Sample Site lbrac 08/16/17 08:01 ABG pH 7.46 (7.35-7.45) H 08/16/17 08:01 ABG pCO2 46 mmHg (35-45) H 08/16/17 08:01 ABG pO2 47 mmHg (83-108) L 08/16/17 08:01 ABG HCO3 32 mmol/L (21-25) H 08/16/17 08:01 ABG Total CO2 34 mmol/L (19-24) H 08/16/17 08:01 ABG O2 Saturation 85.0 % (94-97) L 08/16/17 08:01 ABG Base Excess 8.0 mmol/L 08/16/17 08:01 FiO2 60 % 08/16/17 08:01 Sodium 136 mmol/L (137-145) L 08/16/17 07:03 Potassium 4.2 mmol/L (3.5-5.1) 08/16/17 07:03 Chloride 90 mmol/L (98-107) L 08/16/17 07:03 Carbon Dioxide 33 mmol/L (22-30) H 08/16/17 07:03 Anion Gap 13 mmol/L 08/16/17 07:03 BUN 35 mg/dL (9-20) H 08/16/17 07:03 Creatinine 1.97 mg/dL (0.66-1.25) H 08/16/17 07:03 Est GFR (MDRD) Af Amer 41 (>60 ml/min/1.73 sqM) 08/16/17 07:03 Est GFR (MDRD) Non-Af 34 (>60 ml/min/1.73 sqM) 08/16/17 07:03 Glucose 155 mg/dL (74-99) H 08/16/17 07:03 POC Glucose (mg/dL) 244 mg/dL (75-99) H 08/16/17 18:18 POC Glu Endoscopy Specialty Technician ID Yee Radford 08/16/17 18:18 Calcium 6.5 mg/dL (8.4-10.2) L* 08/16/17 07:03 Total Bilirubin 0.3 mg/dL (0.2-1.3) 08/16/17 07:03 AST 13 U/L (17-59) L 08/16/17 07:03 ALT 18 U/L (21-72) L 08/16/17 07:03 Alkaline Phosphatase 107 U/L (38-126) 08/16/17 07:03 Total Protein 8.0 g/dL (6.3-8.2) 08/16/17 07:03 Albumin 2.9 g/dL (3.5-5.0) L 08/16/17 07:03 Urine Color Yellow 08/14/17 23:45 Urine Appearance Clear (Clear) 08/14/17 23:45 Urine pH 5.5 (5.0-8.0) 08/14/17 23:45 Ur Specific [place] 1.011 (1.001-1.035) 08/14/17 23:45 Urine Protein Negative (Negative) 08/14/17 23:45 Urine Glucose (UA) Negative (Negative) 08/14/17 23:45 Urine Ketones Negative (Negative) 08/14/17 23:45 Urine Blood Trace (Negative) H 08/14/17 23:45 Urine Nitrite Negative (Negative) 08/14/17 23:45 Urine Bilirubin Negative (Negative) 08/14/17 23:45 Urine Urobilinogen <2.0 mg/dL (<2.0) 08/14/17 23:45 Ur Leukocyte Esterase Negative (Negative) 08/14/17 23:45 Urine RBC 9 /hpf (0-5) H 08/14/17 23:45 Urine WBC 1 /hpf (0-5) 08/14/17 23:45 Hyaline Casts 3 /lpf (0-2) H 08/14/17 23:45 Urine Mucus Rare /hpf (None) H 08/14/17 23:45 Assessment and Plan (1) Fall Status: Acute (2) Acute right hip pain Status: Acute (3) Rib pain on left side Status: Acute (4) Hidradenitis suppurativa Narrative/Plan: 67-year-old male has multiple medical troubles including his history of squamous cell lung cancer fifth being monitored by oncology. He is followed in the infectious disease office for the treatment of his hidradenitis which is being treated currently with Humira. There has been some improvement of his significant disease state but not resolution. The last office visit the and I agreed that we would continue treatment at least until the next quarter. He tolerated this very well. He has had no worsening of his anemia or renal failure . While in hospital his Humira is on hold. Continues to have significant pain to the right hip because of the fall. Orthopedics is following. Orthopedics apparently does not believe that there is a fracture and just has a hyperextension injury. And they will follow as needed. Is noted he is on BiPAP for his respiratory failure from his mucous plugging. Antimicrobial therapy is in process and cultures will help further direct this the time of discharge. He is having more comfortable at this time. As has noted dressings are not needed just have him on a drainage had and allow the drainage from his large draining sinus tracts to be absorbed into the pads. If he needs to be removed about a brief maybe applied. The difficulty is the pain that he has to his right hip. Status: Acute
[2017-08-16] MEDS: CYCLOBENZAPRINE 10 MG TAB PO PRN (21:02)
[2017-08-16 21:03] LABS: Hemoglobin A1C 6.6 % (4.2-6.1)
[2017-08-16] MEDS: MULTIVITAMINS, THERA 1 EACH TAB PO SCH (21:03)
[2017-08-16] MEDS ORDERED: SODIUM CHLORIDE 0.9% 500 ML IV ONE (21:32)
[2017-08-16] MEDS: SODIUM CHLORIDE 0.9% 1,000 ML IV SCH (21:45)
[2017-08-17] MEDS: HEPARIN SODIUM,PORCINE 5,000 UNIT/ML 1 ML VIAL SQ SCH ×3 (00:04→16:34)
[2017-08-17] MEDS: PIPERACILLIN-TAZOBACTAM 3.375 GM in DEXTROSE/WATER 1 50ML.BAG IVPB SCH ×3 (00:08→16:29)
[2017-08-17] MEDS: LORazepam 2 MG/ML INJ IV PRN (00:08)
[2017-08-17] MEDS: HYDROcodone/APAP 7.5-325MG 1 EACH TAB PO PRN ×3 (03:16→17:16)
[2017-08-17] MEDS: MORPHINE SULFATE 4 MG/ML SYRINGE IV PRN ×2 (04:34→21:22)
[2017-08-17 05:09] LABS: Anisocytosis Slight; Basophils # (A) 0.1 k/uL (0-0.2); Basophils % (A) 0 %; CH 25.5; CHCM 29.9; Eosinophils % (A) 0 %; HCT 34.4 % (39.0-53.0); HDW 2.51; HGB 9.9 gm/dL (13.0-17.5); Hypochromasia Marked; Luc % (Auto) 0; Lymphocytes # (A) 1.3 k/uL (1.0-4.8); Lymphocytes % (A) 4 %; MCH 24.8 pg (25.0-35.0); MCHC 28.9 g/dL (31.0-37.0); MCV 85.6 fL (80.0-100.0); Mean Platelet Volume 7.1; Monocytes # (A) 0.8 k/uL (0-1.0); Monocytes % (A) 3 %; Neutrophils # (A) 27.4 k/uL (1.3-7.7); Neutrophils % (A) 92 %; RBC 4.01 m/uL (4.30-5.90); RDW 17.7 % (11.5-15.5); WBC (Perox) 28.13
[2017-08-17 05:17] LABS: WBC 29.7 k/uL (3.8-10.6)
[2017-08-17 05:30] LABS: Phosphorous 7.1 mg/dL (2.5-4.5); Potassium 4.9 mmol/L (3.5-5.1); Total Bilirubin 0.3 mg/dL (0.2-1.3)
[2017-08-17 05:38] LABS: Calcium 6.3 mg/dL (8.4-10.2); Magnesium 0.7 mg/dL (1.6-2.3)
[2017-08-17] MEDS ORDERED: Magnesium Replacement Protocol 1 EACH MISC MISCELLANE PRN (06:01)
[2017-08-17] MEDS: MAGNESIUM SULFATE-D5W PMX 1 GM in DEXTROSE/WATER 1 100ML.BAG IVPB SCH ×6 (06:38→23:25)
[2017-08-17] MEDS: ALBUTEROL NEBULIZED 2.5 MG/3 ML INHALATION PRN ×4 (07:07→20:14)
[2017-08-17 07:31] LABS: Glucose,Whole Blood 172 mg/dL (75-99)
[2017-08-17] MEDS: INSULIN LISPRO (humaLOG) 300 UNIT/3 ML VIAL SQ SCH ×4 (08:07→21:35)
--- NOTE | 2017-08-17 08:30 | XR ---
EXAMINATION TYPE: XR chest 1V portable DATE OF EXAM: 08/17/2017 COMPARISON: 08/16/2017 HISTORY: Shortness of breath TECHNIQUE: Single frontal view of the chest is obtained. FINDINGS: Right-sided consolidation and pleural effusion. Left lung clear. Pleural thickening noted on the left. Arthropathy of the shoulders and diffuse osteopenia. The heart is enlarged. IMPRESSION: 1. There is right-sided consolidation and pleural effusion.
[2017-08-17] MEDS: PANTOPRAZOLE 40 MG TABLET PO SCH (08:41)
[2017-08-17] MEDS: CALCIUM CARB-VIT D 500MG-200UN 1 EACH TAB PO SCH ×2 (08:41→17:18)
[2017-08-17] MEDS: BACITRACIN 500 UNIT/GM OINT 28.4 GM TUBE TOPICAL SCH (08:42)
[2017-08-17] MEDS: ALLOPURINOL 100 MG TAB PO SCH (08:42)
[2017-08-17] MEDS: DILTIAZEM CD 180 MG CAP.ER.24H PO SCH (08:43)
[2017-08-17] MEDS: CITALOPRAM HYDROBROMIDE 20 MG TAB PO SCH (08:43)
[2017-08-17] MEDS: guaiFENesin 600 MG TABLET.ER PO SCH ×2 (08:44→20:57)
[2017-08-17] MEDS: LINAGLIPTIN 5 MG TABLET PO SCH (08:44)
[2017-08-17] MEDS: FUROSEMIDE 80 MG TAB PO SCH (08:44)
[2017-08-17] MEDS: NYSTATIN 100,000 UNIT/ML SUSP 500,000 UNIT/5 ML CUP PO SCH ×4 (08:45→22:17)
[2017-08-17] MEDS: SPIRONOLACTONE 25 MG TAB PO SCH (08:45)
[2017-08-17] MEDS: predniSONE 10 MG TAB PO SCH (08:45)
[2017-08-17] MEDS: METOPROLOL SUCCINATE (ER) 25 MG TAB.ER.24H PO SCH ×2 (09:41→20:57)
[2017-08-17] MEDS: SODIUM CHLORIDE 0.9% 1,000 ML IV SCH (11:10)
[2017-08-17] MEDS: AZITHROMYCIN 500 MG in SODIUM CHLORIDE 0.9% 250 ML IVPB SCH (11:10)
--- NOTE | 2017-08-17 11:14 | P.NPCON ---
History of Present Illness - Reason for Consult acute renal failure - History of Present Illness Reason for consultation: Acute kidney injury on chronic kidney disease History of present illness: Patient is a 67-year-old male seen in renal consultation for acute kidney injury on chronic kidney disease. Patient has chronic kidney disease stage III secondary to chronic NSAID use as well as exposure to cisplatin in the past for lung cancer. His baseline creatinine is in the range of 1.2-1.4 however recently is been more so in the range of 1.6-1.8. Patient initially presented to the hospital with fall and right hip pain. No fracture was noted. He was noted to have right-sided pneumonia and is currently maintained on antibiotics. He has history of non-small cell lung cancer and follows with Dr. Mireles. There is no evidence of metastatic disease at this time and he is also being treated for hidradenitis. His blood pressures have been running low in the systolic 80s to 90s. He is currently maintained on Lasix 80 mg twice daily as well as Aldactone. He is also on Cardizem and Lopressor. His oxygenation has improved and is currently on a nasal cannula. He is nonoliguric. No vomiting or diarrhea. Oral intake is gradually improving. He underwent a bronchoscopy this admission with clearing of his mucous plugs. Denies use of NSAIDs. He is afebrile but his bicarbonate is up to 29.7 today. Renal function is also been worse in the last few days and his creatinine is up 2.4 today. No proteinuria noted on urinalysis. Vital signs are stable. General: The patient appeared well nourished and normally developed. HEENT: Head exam is unremarkable. Neck is without jugular venous distension. LUNGS: Lungs are clear to auscultation and percussion. Breath sounds decreased. HEART: Rate and Rhythm are regular. First and second heart sounds normal. No murmurs, rubs or gallops. ABDOMEN: Abdominal exam reveals normal bowel sounds. Non-tender and non- distended. No evidence of peritonitis. EXTREMITITES: No clubbing, cyanosis, or edema. Past Medical History Past Medical History: Atrial Fibrillation, Asthma, Cancer, Diabetes Mellitus, Eye Disorder, GERD/Reflux, GI Bleed, Hearing Disorder / Deafness, Renal Disease , Respiratory Disorder, Skin Disorder Additional Past Medical History / Comment(s): Chronic renal failure, non-small cell lung cancer with a previous right middle lobe/right lower lobe resection, hydradenitis, obesity, chronic atrial fibrillation, diabetes mellitus, acid reflux, hearing impairment, previous history of ulceration related to hydradenitis"yeast in throat", History of Any Multi-Drug Resistant Organisms: None Reported Past Surgical History: Appendectomy, Cholecystectomy, Orthopedic Surgery Additional Past Surgical History / Comment(s): Right middle lobe/right lower lobe resection for non-small cell lung cancer, lap band, , UVP3, cyst removal off hip, surgery for perforated duodenal ulcer, ORIF for a left tib/fib fracture , 07-22-17 bronchoscopy. Past Anesthesia/Blood Transfusion Reactions: No Reported Reaction Additional Psychological History / Comment(s): Patient was a smoker of 2-12/12 packs per day for 47 years, QUIT 4-5 YEARS AGO. He denies any medical marijuana , marijuana, street drug or alcohol use. He has been on disability since 1990. From sustained work susatined lead poisoning there in 1971. 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 care for by the at the family home. No experience or travel. No animal exposures. Smoking Status: Former smoker - Past Family History Father Family Medical History: Cancer, Diabetes Mellitus, Liver Disease Mother Family Medical History: Cancer, Thyroid Disorder Medications and Allergies Home Medications Medication Instructions Recorded Confirmed Type Calcitriol [Rocaltrol] 0.25 mcg PO TH 06/06/16 08/14/17 History Albuterol Nebulized [Ventolin 2.5 mg INHALATION RT-QID PRN 10/23/16 08/14/17 History Nebulized] Calcium Carbonate/Vitamin D3 1 tab PO BID 10/23/16 08/14/17 History [Calcium 600-Vit D3 200 Tablet] Meclizine [Antivert] 25 mg PO Q8H PRN 10/23/16 08/14/17 History Multivitamins, Thera [Multivitamin 1 tab PO HS 10/23/16 08/14/17 History (formulary)] Linagliptin [Tradjenta] 5 mg PO DAILY tablet 10/27/16 08/14/17 Rx Adalimumab [Humira Pen Crohn-Uc-Hs 40 mg SQ FR 02/08/17 08/14/17 History Starter] Albuterol Inhaler [Ventolin Hfa 1 - 2 puff INHALATION RT-Q6H PRN 02/08/17 History Inhaler] Cephalexin [Keflex] 1,000 mg PO QAM 02/08/17 08/14/17 History Cephalexin [Keflex] 500 mg PO HS 02/08/17 08/14/17 History Diltiazem HCl [Cardizem LA] 360 mg PO DAILY 02/08/17 08/14/17 History Omeprazole [PriLOSEC] 20 mg PO BID 02/08/17 08/14/17 History Citalopram Hydrobromide [CeleXA] 40 mg PO DAILY 07/21/17 08/14/17 History Furosemide [Lasix] 80 mg PO BID 07/21/17 08/14/17 History Metolazone [Zaroxolyn] 5 mg PO MOWEFR 07/21/17 08/14/17 History Metoprolol Succinate [Toprol XL] 12.5 mg PO BID 07/21/17 08/14/17 History Spironolactone [Aldactone] 25 mg PO DAILY 07/21/17 08/14/17 History predniSONE 10 mg PO DAILY 07/21/17 08/14/17 History Allopurinol [Zyloprim] 100 mg PO DAILY 08/14/17 08/14/17 History Nystatin 100,000 Unit/ml Susp 5 ml PO QID 08/14/17 08/14/17 History [Mycostatin Oral Susp] Spironolactone [Aldactone] 25 mg PO DAILY 08/14/17 08/14/17 History guaiFENesin 400 mg PO TID 08/14/17 08/14/17 History Allergies Allergy/AdvReac Type Severity Reaction Status Date / Time clindamycin AdvReac Diarrhea Verified 08/14/17 14:34 Physical Exam Vitals: Vital Signs Temp Pulse Pulse Resp BP Pulse Ox 08/17/17 10:00 81 10 L 83/57 98 08/17/17 09:00 97.8 F 78 31 H 92/64 96 08/17/17 08:00 78 19 94/60 100 08/17/17 07:23 76 08/17/17 07:09 74 08/17/17 07:00 88 18 96/65 99 08/17/17 06:00 79 21 99/67 97 08/17/17 05:00 89 16 91/66 97 08/17/17 04:00 98.3 F 76 14 98/65 100 08/17/17 03:00 79 16 100/66 100 08/17/17 02:00 75 20 100/65 98 08/17/17 01:00 75 15 98/66 99 08/17/17 00:00 77 98 18 102/67 98 08/16/17 23:03 75 16 95/62 100 08/16/17 23:00 70 17 95/62 100 08/16/17 22:00 81 16 94/68 82 L 08/16/17 21:00 77 20 98/63 100 08/16/17 20:00 97.8 F 77 98 16 96/63 100 08/16/17 19:56 79 08/16/17 19:46 75 08/16/17 19:00 82 14 105/75 100 08/16/17 18:00 98.0 F 90 17 105/75 100 08/16/17 17:00 82 16 100 08/16/17 16:57 80 08/16/17 16:46 88 08/16/17 16:00 87 20 100 08/16/17 15:00 84 23 106/68 100 08/16/17 14:00 100 20 106/68 100 08/16/17 13:00 128 H 30 H 100 08/16/17 12:00 108 H 98 20 117/69 98 08/16/17 11:54 104 H 08/16/17 11:44 98 Intake and Output 08/16/17 08/17/17 08/17/17 22:59 06:59 14:59 Intake Total 670 825 250 Output Total 395 830 265 Balance 275 -5 -15 Intake: IV 550 825 200 Magnesium Sulfate-D5w Pmx 100 200 1 gm In Dextrose/Water 1 100ml.bag @ 100 mls/hr IVPB Q1H [facility] Rx#: [id number] Piperacillin-Tazobactam 3 50 .375 gm In Dextrose/Water 1 50ml.bag @ 12.5 mls/hr IVPB Q8HR [facility] Rx#: [id number] Sodium Chloride 0.9% 1, 675 000 ml @ 75 mls/hr IV . [id number] [facility] Rx#:[id number] Sodium Chloride 0.9% 500 500 ml @ 999 mls/hr IV .Q31M [facility] Rx#:[id number] cefTRIAXone 1,000 mg In 50 Sodium Chloride 0.9% 50 ml @ 100 mls/hr IVPB Q12HR [facility] Rx#:[id number] Intake, IV Titration 50 Amount Piperacillin-Tazobactam 3 50 .375 gm In Dextrose/Water 1 50ml.bag @ 12.5 mls/hr IVPB Q8HR [facility] Rx#: [id number] Oral 120 Output: Urine 395 830 265 Other: Voiding Method Indwelling Catheter Indwelling Catheter # Voids 2 Weight 133.81 kg 143.5 kg Results - Lab Results Most recent lab results ABG pH 7.46 (7.35-7.45) H 08/16/17 08:01 ABG pCO2 46 mmHg (35-45) H 08/16/17 08:01 ABG pO2 47 mmHg (83-108) L 08/16/17 08:01 ABG HCO3 32 mmol/L (21-25) H 08/16/17 08:01 ABG O2 Saturation 85.0 % (94-97) L 08/16/17 08:01 Calcium 6.3 mg/dL (8.4-10.2) L* 08/17/17 04:38 Phosphorus 7.1 mg/dL (2.5-4.5) H 08/17/17 04:38 Magnesium 0.7 mg/dL (1.6-2.3) L* 08/17/17 04:38 08/17/17 04:41 08/17/17 04:38 Assessment and Plan Plan: Assessment: #1. Nonoliguric acute kidney injury secondary to ischemic ATN secondary to hypotension and diuresis. Creatinine up to 2.4 today. No proteinuria on urinalysis. #2. Worsening leukocytosis likely from pneumonia. Maintained on broad- spectrum antibiotics. Also on prednisone. #3. Hypotension with systolic blood pressure in the 80s and 90s. #4. Chronic kidney disease stage III secondary to chronic NSAID use as well as cisplatin. Recently creatinine has been near 1.8. #5. Acute hypoxic respiratory failure status post bronchoscopy with clearing of mucous plugging. #6. Non-small cell lung cancer being followed by oncology. #7. Hypomagnesemia secondary to diuresis. #8. Hypocalcemia secondary to acute kidney injury. Corrected calcium is 7.5. Asymptomatic. Plan: Continue normal saline at 75 mL an hour. Hold diuretics. Encouraged oral intake. Replace magnesium. 4 g today. Continue Os-Clifton and Rocaltrol. Check cortisol level. Avoid nephrotoxic agents and hypotensive episodes. Follow-up cultures. Continue with antibiotics per infectious disease recommendations. Continue to monitor renal function and urine output. Repeat electrolytes in the morning. Thank you for the consultation. I will continue to follow the patient with you during his hospital stay.
[2017-08-17 12:04] LABS: Glucose,Whole Blood 280 mg/dL (75-99)
[2017-08-17] MEDS: CALCITRIOL 0.25 MCG CAP PO SCH (12:40)
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
--- NOTE | 2017-08-17 14:11 | P.PN ---
Subjective Principal diagnosis: Acute fall and possible right hip fracture, right lung collapse requiring bronchoscopy and BAL for mucous plug suctioning and right mainstem bronchus. This is a 67-year-old white male with history of multiple medical problems including COPD, chronic congestive heart failure, morbid obesity, previous lobectomy for non-small cell lung cancer over 5 years ago, chronic atrial fibrillation, chronic renal failure, patient was admitted this time on 2016 because he fell as he was drying himself off and put one leg on the bathtub to dry off then switched legs in the process he fell. Patient fell on the left side, however apparently there was some hyperextension of the right hip , came in with severe pain involving the right hip. Workup so far included CT of the hip, x-rays of the hip, are negative for possible fracture. Bone scan is scheduled to confirm that there is no evidence of right hip fracture. Considering his other medical problems including COPD and history of lung cancer as well as his chronic congestive heart failure, and chronic right lower lobe changes related to previous surgery, I was asked to see him on consultation. Presently the patient has minimal dyspnea on exertion, no cough no wheezing no shortness of breath at rest, no chest pain. Patient is usually maintained on a 10 mg of prednisone is also on updraft treatments for COPD. And the patient is on relatively high dose of diuretics for chronic congestive heart failure. His clinical pulmonary and cardiac status seemed to be relatively stable at this point. The patient's main complaint at this point is mostly right hip pain. And difficulty to bear any weight on the right hip. Patient was seen by orthopedics and workup is in progress, awaiting to have a bone scan. But so far the workup is negative for fracture. Patient was reevaluated today on 08/16/2017, apparently the patient developed a significant desaturation early this morning, even when he was placed on a nonrebreather mask, his O2 saturation was marginal. The A TEAM was called to see the patient, and a chest x-ray done showed evidence of almost near complete collapse of the right lung. Obviously this is consistent with mucous plugging involving the right mainstem bronchus. Patient had a previous right lower lobectomy, but when I came in and reviewed the chest x-ray, the findings are clearly consistent with a right mainstem mucous plug. Patient was transferred to the ICU, placed on BiPAP, and I have arranged for immediate stat bronchoscopy at bedside in the ICU. Bronchoscopy was performed, please refer to the full operative report of the bronchoscopy. Indeed there was significant mucus plugging involving the right mainstem bronchus and this was cleared by suctioning. Discussed all the findings with the patient and his family at bedside after the procedure. Patient felt better and after the procedure I placed him back on BiPAP to keep the right lung expanded. May even require another bronchoscopy tomorrow if he collapses again. In the meantime I started the patient on antibiotics in the form of Zosyn, cultures from the fluid obtained from the right lung and the right mainstem bronchus are pending. ABG earlier today showed a pO2 of 47 pCO2 of 46 pH of 7.46. WBC count was noted to be 23.7 hemoglobin is 11. Patient did receive Lasix earlier however his desaturation was mostly pulmonary in nature related to lung collapse rather than cardiac in nature. Reevaluated today on 08/17/2017, patient is now on nasal cannula, saturating nicely, relatively asymptomatic from the pulmonary perspective, however his chest x-ray continues to show some air space disease involving the right midlung area. Patient is already on antibiotics for presumptive pneumonia. Continues to have pain in the right hip, orthopedics is following. So far workup for fracture has been negative, and it was felt that this is most likely a hyperextension type of injury. WBC count today is 29.7 hemoglobin is 9.9 his electrolytes are normal BUN is 47 creatinine 2.40. Magnesium was low and it is being corrected as per protocol. Objective - Vital Signs Vital signs: Vital Signs Temp 98.7 F 08/17/17 12:00 Pulse 98 08/17/17 12:00 Resp 25 H 08/17/17 12:00 BP 94/61 08/17/17 12:00 Pulse Ox 100 08/17/17 12:00 Intake & Output 08/16/17 08/17/17 08/17/17 18:59 06:59 18:59 Intake Total 740 1375 500 Output Total 290 935 315 Balance 450 440 185 Weight 143.5 kg 143.5 kg Intake: IV 100 1375 200 Magnesium Sulfate-D5w Pmx 100 200 1 gm In Dextrose/Water 1 100ml.bag @ 100 mls/hr IVPB Q1H [facility] Rx#: [id number] Piperacillin-Tazobactam 3 50 .375 gm In Dextrose/Water 1 50ml.bag @ 12.5 mls/hr IVPB Q8HR [facility] Rx#: [id number] Sodium Chloride 0.9% 1, 675 000 ml @ 75 mls/hr IV . [id number] [facility] Rx#:[id number] Sodium Chloride 0.9% 500 500 ml @ 999 mls/hr IV .Q31M [facility] Rx#:[id number] cefTRIAXone 1,000 mg In 50 Sodium Chloride 0.9% 50 ml @ 100 mls/hr IVPB Q12HR [facility] Rx#:[id number] Intake, IV Titration 400 300 Amount Azithromycin 500 mg In 250 250 Sodium Chloride 0.9% 250 ml @ 125 mls/hr IVPB DAILY [facility] Rx#:[id number] Piperacillin-Tazobactam 3 50 50 .375 gm In Dextrose/Water 1 50ml.bag @ 12.5 mls/hr IVPB Q8HR [facility] Rx#: [id number] cefTRIAXone 1,000 mg In 100 Sodium Chloride 0.9% 50 ml @ 100 mls/hr IVPB Q12HR [facility] Rx#:[id number] Oral 240 Output: Urine 290 935 315 Other: Voiding Method Indwelling Catheter Indwelling Catheter Indwelling Catheter # Voids 2 - Exam Physical Exam: Revealed a 67-year-old white male, obese, on nasal cannula, not in any form of distress at this point. HEENT:[Neck is supple.] [No neck masses.] [No thyromegaly.] [No JVD.] Chest: [Diminished breath sounds on the right side, left side is relatively clear. Cardiac Exam: Distant S1 and S2, no S3 gallop, no murmur.] Abdomen: [Obese, Soft, nontender, no megaly, no rebound, no guarding, normal bowel sounds.] Extremities: [No clubbing, 2+ bipedal edema, no cyanosis.] Chronic venous stasis changes. Neurological Exam: [No focal neurologic deficit.] Musculoskeletal: Continues to have difficulty in the range of motion of the right hip, pain with any movement of the hip. Otherwise unremarkable. Skin: Chronic venous stasis noted in the lower extremities and 2+ bipedal edema noted. Psychiatric: Normal mental status exam, normal affect, no mood changes. - Labs CBC & Chem 7: 08/17/17 04:41 08/17/17 04:38 Labs: Abnormal Lab Results - Last 24 Hours (Table) 08/16/17 08/16/17 08/17/17 Range/Units 07:03 18:18 04:38 WBC (3.8-10.6) k/uL RBC (4.30-5.90) m/uL Hgb (13.0-17.5) gm/dL Hct (39.0-53.0) % MCH (25.0-35.0) pg MCHC (31.0-37.0) g/dL RDW (11.5-15.5) % Plt Count (150-450) k/uL Neutrophils # (1.3-7.7) k/uL Sodium 135 L (137-145) mmol/L Chloride 93 L (98-107) mmol/L BUN 47 H (9-20) mg/dL Creatinine 2.40 H (0.66-1.25) mg/dL Glucose 178 H (74-99) mg/dL POC Glucose (mg/dL) 244 H (75-99) mg/dL Hemoglobin A1c 6.6 H (4.2-6.1) % Calcium 6.3 L* (8.4-10.2) mg/dL Phosphorus 7.1 H (2.5-4.5) mg/dL Magnesium 0.7 L* (1.6-2.3) mg/dL AST 13 L (17-59) U/L ALT 20 L (21-72) U/L Albumin 2.5 L (3.5-5.0) g/dL 08/17/17 08/17/17 08/17/17 Range/Units 04:41 07:29 12:02 WBC 29.7 H* (3.8-10.6) k/uL RBC 4.01 L (4.30-5.90) m/uL Hgb 9.9 L (13.0-17.5) gm/dL Hct 34.4 L (39.0-53.0) % MCH 24.8 L (25.0-35.0) pg MCHC 28.9 L (31.0-37.0) g/dL RDW 17.7 H (11.5-15.5) % Plt Count 479 H (150-450) k/uL Neutrophils # 27.4 H (1.3-7.7) k/uL Sodium (137-145) mmol/L Chloride (98-107) mmol/L BUN (9-20) mg/dL Creatinine (0.66-1.25) mg/dL Glucose (74-99) mg/dL POC Glucose (mg/dL) 172 H 280 H (75-99) mg/dL Hemoglobin A1c (4.2-6.1) % Calcium (8.4-10.2) mg/dL Phosphorus (2.5-4.5) mg/dL Magnesium (1.6-2.3) mg/dL AST (17-59) U/L ALT (21-72) U/L Albumin (3.5-5.0) g/dL Assessment and Plan Plan: Impression: 1 acute fall, possible right hip fracture, workup is in progress. It is felt that this is most likely a hyperextension type of injury, no fracture could be seen based on the workup done so far. Patient is being followed by orthopedics 2 acute hypoxic respiratory failure secondary to right lung collapse secondary to mucus plugging noted in the right mainstem bronchus., Status post bronchoscopy and suctioning of mucous plugs in the right mainstem bronchus. This was done on 08/16/2017. Excellent immediate results. Chest x-ray today on 08/17/2017 shows somedisease in the right midlung, but the lung has extreme and it significantly compared to yesterday. No need for repeat bronchoscopy today. 2 history of multiple comorbidities including severe COPD, bronchogenic carcinoma and previous lobectomy, chronic atrial fibrillation, chronic systolic congestive heart failure, type 2 diabetes, history of GERD without esophagitis, history of chronic renal failure, history of right lower lobectomy, history of hearing impairment, history of hidradenitis, and history of morbid obesity. Recommendation: Consider transferring the patient out of the ICU to a regular medical floor, patient will remain on the present course of bronchodilators, antibiotics, continue BiPAP as needed, incentive spirometry, and hopefully early ambulation, once his hip improves. Time with Patient: Less than 30
[2017-08-17 17:23] LABS: Glucose,Whole Blood 165 mg/dL (75-99)
[2017-08-17] MEDS: MULTIVITAMINS, THERA 1 EACH TAB PO SCH (20:57)
[2017-08-17 21:34] LABS: Glucose,Whole Blood 192 mg/dL (75-99)
--- NOTE | 2017-08-17 21:44 | P.PN ---
Subjective Principal diagnosis: Fall with left hip pain 67-year-old male who is well-known to the infectious disease service with as many hospitalizations as well as his hidradenitis. He's had a couple hospitalizations in the last several months that included atrial fibrillation with nonsustained V. tach. He has underlying cardiac murmur. He's had vertigo and acute renal failure. He's had some time at the extended care facility in the past year but is now home Doing relatively well under the care of his . He was hospitalized earlier this year with a bout of congestive heart failure and is in relatively well since that time. The. The patient was bathing and suffered a fall and now presents with severe right sided hip pain. He's been evaluated by orthopedics. The hidradenitis is now being treated with Humira injections at home. This is on Fridays. This has been occurring for the last couple of months now. There is been decreasing amount of drainage. His skin is becoming less erythematous and inflamed. The amount of drainage is improving The family is pleased that there is showing some improvement given the many year history of lack of improvement. However was still must apply large amounts of dressings on a daily basis to contain his drainage. The patient never became progressively more short of breath. Was transferred to intensive care unit. He's been seen by pulmonary and underwent bronchoscopy for removal of large mucous plugging to the right lung. Patient remains on BiPAP but is more stable at this time. Antimicrobial therapy was initiated with concerns to pneumonia with this pulmonary process. Cultures are in process. He has slightly improved pain today. Pulmonary status has stabilized to improved. Objective - Vital Signs Vital signs: Vital Signs Temp 99.1 F 08/17/17 20:00 Pulse 84 08/17/17 20:42 Resp 18 08/17/17 20:00 BP 104/72 08/17/17 20:00 Pulse Ox 97 08/17/17 20:00 Intake & Output 08/17/17 08/17/17 08/18/17 06:59 18:59 06:59 Intake Total 1375 500 75 Output Total 935 515 100 Balance 440 -15 -25 Weight 143.5 kg 143.5 kg Intake: IV 1375 200 75 Magnesium Sulfate-D5w Pmx 100 200 1 gm In Dextrose/Water 1 100ml.bag @ 100 mls/hr IVPB Q1H [facility] Rx#: [id number] Piperacillin-Tazobactam 3 50 .375 gm In Dextrose/Water 1 50ml.bag @ 12.5 mls/hr IVPB Q8HR [facility] Rx#: [id number] Sodium Chloride 0.9% 1, 675 75 000 ml @ 75 mls/hr IV . [id number] [facility] Rx#:[id number] Sodium Chloride 0.9% 500 500 ml @ 999 mls/hr IV .Q31M [facility] Rx#:[id number] cefTRIAXone 1,000 mg In 50 Sodium Chloride 0.9% 50 ml @ 100 mls/hr IVPB Q12HR [facility] Rx#:[id number] Intake, IV Titration 300 Amount Azithromycin 500 mg In 250 Sodium Chloride 0.9% 250 ml @ 125 mls/hr IVPB DAILY [facility] Rx#:[id number] Piperacillin-Tazobactam 3 50 .375 gm In Dextrose/Water 1 50ml.bag @ 12.5 mls/hr IVPB Q8HR [facility] Rx#: [id number] Output: Urine 935 515 100 Other: Voiding Method Indwelling Catheter Indwelling Catheter # Voids 2 - Exam Pleasant 67-year-old gentleman who suffers from obesity who was miserable at this time. BiPAP though is being tolerated. Hip pain is better treated. He is less short of breath. HEENT: Anicteric conjunctiva are pink and moist nasal mucosa grossly intact without significant lesions, there is no thrush. Neck: The neck is supple without significant lymphadenopathy or thyromegaly. Lungs: There is symmetrical air entry with evidence of some crackles at the still at the right base Some expiratory wheezes are heard. Heart: Irregular with an audible S1 and S2 no S3 soft S4 There is no significant murmur click or rub, PMI was nondisplaced. Abdomen: Obese, Positive bowel sounds soft and nontender without palpable masses or organomegaly. There was no guarding or rebound. Extremities: The upper extremities have excellent pulses they are symmetric, no significant petechiae or telangiectasia. No splinter hemorrhages were noted. The left lower extremity is without significant tenderness at this time. Right lower extremity has severe pain upon manipulation. Any attempt to internally or externally rotate the limb causes him to have severe pain. There is at the chronic drainage without change from last evaluation. He has extensive areas of drainage on the buttocks bilaterally and inner thighs. Neuro: Awake alert oriented to person place and time. There are no acute new gross focal sensory motor deficits. - Labs CBC & Chem 7: 08/17/17 04:41 08/17/17 17:59 Labs: Abnormal Lab Results - Last 24 Hours (Table) 08/17/17 08/17/17 08/17/17 Range/Units 04:38 04:41 07:29 WBC 29.7 H* (3.8-10.6) k/uL RBC 4.01 L (4.30-5.90) m/uL Hgb 9.9 L (13.0-17.5) gm/dL Hct 34.4 L (39.0-53.0) % MCH 24.8 L (25.0-35.0) pg MCHC 28.9 L (31.0-37.0) g/dL RDW 17.7 H (11.5-15.5) % Plt Count 479 H (150-450) k/uL Neutrophils # 27.4 H (1.3-7.7) k/uL Sodium 135 L (137-145) mmol/L Chloride 93 L (98-107) mmol/L BUN 47 H (9-20) mg/dL Creatinine 2.40 H (0.66-1.25) mg/dL Glucose 178 H (74-99) mg/dL POC Glucose (mg/dL) 172 H (75-99) mg/dL Calcium 6.3 L* (8.4-10.2) mg/dL Phosphorus 7.1 H (2.5-4.5) mg/dL Magnesium 0.7 L* (1.6-2.3) mg/dL AST 13 L (17-59) U/L ALT 20 L (21-72) U/L Albumin 2.5 L (3.5-5.0) g/dL 08/17/17 08/17/17 08/17/17 Range/Units 12:02 17:21 17:59 WBC (3.8-10.6) k/uL RBC (4.30-5.90) m/uL Hgb (13.0-17.5) gm/dL Hct (39.0-53.0) % MCH (25.0-35.0) pg MCHC (31.0-37.0) g/dL RDW (11.5-15.5) % Plt Count (150-450) k/uL Neutrophils # (1.3-7.7) k/uL Sodium (137-145) mmol/L Chloride (98-107) mmol/L BUN (9-20) mg/dL Creatinine (0.66-1.25) mg/dL Glucose (74-99) mg/dL POC Glucose (mg/dL) 280 H 165 H (75-99) mg/dL Calcium (8.4-10.2) mg/dL Phosphorus (2.5-4.5) mg/dL Magnesium 1.3 L (1.6-2.3) mg/dL AST (17-59) U/L ALT (21-72) U/L Albumin (3.5-5.0) g/dL 08/17/17 Range/Units 21:31 WBC (3.8-10.6) k/uL RBC (4.30-5.90) m/uL Hgb (13.0-17.5) gm/dL Hct (39.0-53.0) % MCH (25.0-35.0) pg MCHC (31.0-37.0) g/dL RDW (11.5-15.5) % Plt Count (150-450) k/uL Neutrophils # (1.3-7.7) k/uL Sodium (137-145) mmol/L Chloride (98-107) mmol/L BUN (9-20) mg/dL Creatinine (0.66-1.25) mg/dL Glucose (74-99) mg/dL POC Glucose (mg/dL) 192 H (75-99) mg/dL Calcium (8.4-10.2) mg/dL Phosphorus (2.5-4.5) mg/dL Magnesium (1.6-2.3) mg/dL AST (17-59) U/L ALT (21-72) U/L Albumin (3.5-5.0) g/dL Laboratory Results WBC 29.7 k/uL (3.8-10.6) H* 08/17/17 04:41 RBC 4.01 m/uL (4.30-5.90) L 08/17/17 04:41 Hgb 9.9 gm/dL (13.0-17.5) L 08/17/17 04:41 Hct 34.4 % (39.0-53.0) L 08/17/17 04:41 MCV 85.6 fL (80.0-100.0) 08/17/17 04:41 MCH 24.8 pg (25.0-35.0) L 08/17/17 04:41 MCHC 28.9 g/dL (31.0-37.0) L 08/17/17 04:41 RDW 17.7 % (11.5-15.5) H 08/17/17 04:41 Plt Count 479 k/uL (150-450) H 08/17/17 04:41 Neutrophils % 92 % 08/17/17 04:41 Lymphocytes % 4 % 08/17/17 04:41 Monocytes % 3 % 08/17/17 04:41 Eosinophils % 0 % 08/17/17 04:41 Basophils % 0 % 08/17/17 04:41 Neutrophils # 27.4 k/uL (1.3-7.7) H 08/17/17 04:41 Lymphocytes # 1.3 k/uL (1.0-4.8) 08/17/17 04:41 Monocytes # 0.8 k/uL (0-1.0) 08/17/17 04:41 Eosinophils # 0.0 k/uL (0-0.7) 08/17/17 04:41 Basophils # 0.1 k/uL (0-0.2) 08/17/17 04:41 Hypochromasia Marked 08/17/17 04:41 Anisocytosis Slight 08/17/17 04:41 Sample Site lbrac 08/16/17 08:01 ABG pH 7.46 (7.35-7.45) H 08/16/17 08:01 ABG pCO2 46 mmHg (35-45) H 08/16/17 08:01 ABG pO2 47 mmHg (83-108) L 08/16/17 08:01 ABG HCO3 32 mmol/L (21-25) H 08/16/17 08:01 ABG Total CO2 34 mmol/L (19-24) H 08/16/17 08:01 ABG O2 Saturation 85.0 % (94-97) L 08/16/17 08:01 ABG Base Excess 8.0 mmol/L 08/16/17 08:01 FiO2 60 % 08/16/17 08:01 Sodium 135 mmol/L (137-145) L 08/17/17 04:38 Potassium 4.7 mmol/L (3.5-5.1) 08/17/17 17:59 Chloride 93 mmol/L (98-107) L 08/17/17 04:38 Carbon Dioxide 29 mmol/L (22-30) 08/17/17 04:38 Anion Gap 13 mmol/L 08/17/17 04:38 BUN 47 mg/dL (9-20) H 08/17/17 04:38 Creatinine 2.40 mg/dL (0.66-1.25) H 08/17/17 04:38 Est GFR (MDRD) Af Amer 33 (>60 ml/min/1.73 sqM) 08/17/17 04:38 Est GFR (MDRD) Non-Af 27 (>60 ml/min/1.73 sqM) 08/17/17 04:38 Glucose 178 mg/dL (74-99) H 08/17/17 04:38 POC Glucose (mg/dL) 192 mg/dL (75-99) H 08/17/17 21:31 POC Glu Lunch Cook ID Kali Smith 08/17/17 21:[address] Glu mg/dL 143 mg/dL 08/16/17 07:03 Hemoglobin A1c 6.6 % (4.2-6.1) H 08/16/17 07:03 Calcium 6.3 mg/dL (8.4-10.2) L* 08/17/17 04:38 Phosphorus 7.1 mg/dL (2.5-4.5) H 08/17/17 04:38 Magnesium 1.3 mg/dL (1.6-2.3) L 08/17/17 17:59 Total Bilirubin 0.3 mg/dL (0.2-1.3) 08/17/17 04:38 AST 13 U/L (17-59) L 08/17/17 04:38 ALT 20 U/L (21-72) L 08/17/17 04:38 Alkaline Phosphatase 89 U/L (38-126) 08/17/17 04:38 Total Protein 7.0 g/dL (6.3-8.2) 08/17/17 04:38 Albumin 2.5 g/dL (3.5-5.0) L 08/17/17 04:38 Cortisol 9 ug/dL 08/17/17 04:38 Urine Color Yellow 08/14/17 23:45 Urine Appearance Clear (Clear) 08/14/17 23:45 Urine pH 5.5 (5.0-8.0) 08/14/17 23:45 Ur Specific [place] 1.011 (1.001-1.035) 08/14/17 23:45 Urine Protein Negative (Negative) 08/14/17 23:45 Urine Glucose (UA) Negative (Negative) 08/14/17 23:45 Urine Ketones Negative (Negative) 08/14/17 23:45 Urine Blood Trace (Negative) H 08/14/17 23:45 Urine Nitrite Negative (Negative) 08/14/17 23:45 Urine Bilirubin Negative (Negative) 08/14/17 23:45 Urine Urobilinogen <2.0 mg/dL (<2.0) 08/14/17 23:45 Ur Leukocyte Esterase Negative (Negative) 08/14/17 23:45 Urine RBC 9 /hpf (0-5) H 08/14/17 23:45 Urine WBC 1 /hpf (0-5) 08/14/17 23:45 Hyaline Casts 3 /lpf (0-2) H 08/14/17 23:45 Urine Mucus Rare /hpf (None) H 08/14/17 23:45 Assessment and Plan (1) Fall Status: Acute (2) Acute right hip pain Status: Acute (3) Rib pain on left side Status: Acute (4) Hidradenitis suppurativa Narrative/Plan: 67-year-old male has multiple medical troubles including his history of squamous cell lung cancer fifth being monitored by oncology. He is followed in the infectious disease office for the treatment of his hidradenitis which is being treated currently with Humira. There has been some improvement of his significant disease state but not resolution. The last office visit the and I agreed that we would continue treatment at least until the next quarter. He tolerated this very well. He has had no worsening of his anemia or renal failure . While in hospital his Humira is on hold. Continues to have significant pain to the right hip because of the fall. Orthopedics is following. Orthopedics apparently does not believe that there is a fracture and just has a hyperextension injury. And they will follow as needed. Is noted he is on BiPAP for his respiratory failure from his mucous plugging. Antimicrobial therapy is in process and cultures will help further direct this the time of discharge. Rocephin is discontinued at this time. He is having more comfortable at this time. As has noted dressings are not needed just have him on a drainage had and allow the drainage from his large draining sinus tracts to be absorbed into the pads. If he needs to be moved about, a brief maybe applied. The difficulty is the pain that he has to his right hip. Status: Acute
[2017-08-18] MEDS: PIPERACILLIN-TAZOBACTAM 3.375 GM in DEXTROSE/WATER 1 50ML.BAG IVPB SCH ×4 (00:10→23:10)
[2017-08-18] MEDS: HEPARIN SODIUM,PORCINE 5,000 UNIT/ML 1 ML VIAL SQ SCH ×2 (00:10→09:28)
[2017-08-18] MEDS: LORazepam 2 MG/ML INJ IV PRN ×2 (00:12→23:08)
[2017-08-18 04:43] LABS: Anisocytosis Slight; CH 25.5; CHCM 30.4; HCT 30.5 % (39.0-53.0); HDW 2.51; HGB 9.1 gm/dL (13.0-17.5); Hypochromasia Moderate; Lymphocytes % (A) 7 %; MCH 25.2 pg (25.0-35.0); MCHC 29.8 g/dL (31.0-37.0); MCV 84.3 fL (80.0-100.0); Mean Platelet Volume 7.2; Monocytes % (A) 3 %; Neutrophils % (A) 89 %; RBC 3.62 m/uL (4.30-5.90); RDW 17.6 % (11.5-15.5); WBC 21.9 k/uL (3.8-10.6); WBC (Perox) 23.14
[2017-08-18 04:44] LABS: Basophils % (A) 0 %; Eosinophils # (A) 0.2 k/uL (0-0.7); Eosinophils % (A) 1 %; Luc % (Auto) 1; Lymphocytes # (A) 1.5 k/uL (1.0-4.8); Monocytes # (A) 0.7 k/uL (0-1.0); Neutrophils # (A) 19.4 k/uL (1.3-7.7)
[2017-08-18 04:53] LABS: Calcium 6.6 mg/dL (8.4-10.2); Magnesium 1.6 mg/dL (1.6-2.3); Phosphorous 5.3 mg/dL (2.5-4.5); Potassium 4.3 mmol/L (3.5-5.1); Total Bilirubin 0.2 mg/dL (0.2-1.3); Total Protein 6.7 g/dL (6.3-8.2)
[2017-08-18] MEDS: HYDROcodone/APAP 7.5-325MG 1 EACH TAB PO PRN ×2 (05:08→23:10)
[2017-08-18] MEDS: SODIUM CHLORIDE 0.9% 1,000 ML IV SCH ×3 (05:22→15:26)
[2017-08-18] MEDS: MORPHINE SULFATE 4 MG/ML SYRINGE IV PRN ×3 (06:04→21:13)
[2017-08-18 07:27] LABS: Glucose,Whole Blood 130 mg/dL (75-99)
[2017-08-18] MEDS: INSULIN LISPRO (humaLOG) 300 UNIT/3 ML VIAL SQ SCH ×4 (07:57→21:25)
--- NOTE | 2017-08-18 08:24 | XR ---
EXAMINATION TYPE: XR chest 1V DATE OF EXAM: 08/18/2017 COMPARISON: 08/17/2017 HISTORY: Respiratory failure TECHNIQUE: Single frontal view of the chest is obtained. FINDINGS: There is now near complete opacification of the right hemithorax. Left lung clear. Heart r emains enlarged. Arthropathy of the shoulders. IMPRESSION: 1. Progression of airspace disease in the right with near complete opacification now noted which may represent a combination of pleural fluid and consolidative process or pneumonia. Endobronchial lesion or mucous plug in the differential diagnosis.
[2017-08-18] MEDS: ALBUTEROL NEBULIZED 2.5 MG/3 ML INHALATION PRN (08:39)
[2017-08-18] MEDS: PANTOPRAZOLE 40 MG TABLET PO SCH (09:26)
[2017-08-18] MEDS: AZITHROMYCIN 500 MG TAB PO SCH (09:27)
[2017-08-18] MEDS: BACITRACIN 500 UNIT/GM OINT 28.4 GM TUBE TOPICAL SCH (09:27)
[2017-08-18] MEDS: ALLOPURINOL 100 MG TAB PO SCH (09:28)
[2017-08-18] MEDS: CALCIUM CARB-VIT D 500MG-200UN 1 EACH TAB PO SCH ×2 (09:28→17:28)
[2017-08-18] MEDS: guaiFENesin 600 MG TABLET.ER PO SCH ×2 (09:30→21:13)
[2017-08-18] MEDS: CITALOPRAM HYDROBROMIDE 20 MG TAB PO SCH (09:30)
[2017-08-18] MEDS: LINAGLIPTIN 5 MG TABLET PO SCH (09:31)
[2017-08-18] MEDS: METOPROLOL SUCCINATE (ER) 25 MG TAB.ER.24H PO SCH ×2 (09:47→21:13)
[2017-08-18] MEDS: DILTIAZEM CD 180 MG CAP.ER.24H PO SCH (09:47)
[2017-08-18] MEDS: NYSTATIN 100,000 UNIT/ML SUSP 500,000 UNIT/5 ML CUP PO SCH ×4 (09:48→21:13)
[2017-08-18] MEDS: predniSONE 10 MG TAB PO SCH (10:03)
--- NOTE | 2017-08-18 11:19 | P.PN ---
Subjective Patient is seen in follow-up for acute kidney injury on chronic kidney disease. Patient has chronic kidney disease stage III secondary to chronic NSAID use and cisplatin toxicity with baseline creatinine near 1.6-1.8 recently. Renal function has been gradually worsening the last few days but is now starting to stabilize. Creatinine is 2.44 today. Patient was hypotensive yesterday and was started on IV fluids. He is currently maintained on normal saline at 75 mL an hour. He is nonoliguric. Currently sitting up in bed. Still has pain in the shoulder when he sustained an injury after falling. He is being treated for right-sided pneumonia. No vomiting or diarrhea. Oral intake is starting to improve. Vital signs are stable. General: The patient appeared well nourished and normally developed. HEENT: Head exam is unremarkable. Neck is without jugular venous distension. LUNGS: Lungs are clear to auscultation and percussion. Breath sounds decreased. HEART: Rate and Rhythm are regular. First and second heart sounds normal. No murmurs, rubs or gallops. ABDOMEN: Abdominal exam reveals normal bowel sounds. Non-tender and non- distended. No evidence of peritonitis. EXTREMITITES: No clubbing, cyanosis, or edema. Objective - Vital Signs Vital signs: Vital Signs Temp 97.3 F L 08/18/17 09:00 Pulse 92 08/18/17 10:00 Resp 20 08/18/17 10:00 BP 109/65 08/18/17 10:00 Pulse Ox 95 08/18/17 10:00 Intake & Output 08/17/17 08/18/17 08/18/17 18:59 06:59 18:59 Intake Total 500 950 500 Output Total 515 1530 325 Balance -15 -580 175 Weight 143.5 kg 141.2 kg Intake: IV 200 950 Magnesium Sulfate-D5w Pmx 200 200 1 gm In Dextrose/Water 1 100ml.bag @ 100 mls/hr IVPB Q1H [facility] Rx#: [id number] Sodium Chloride 0.9% 1, 750 000 ml @ 50 mls/hr IV . Q20H [facility] Rx#:[id number] Intake, IV Titration 300 Amount Azithromycin 500 mg In 250 Sodium Chloride 0.9% 250 ml @ 125 mls/hr IVPB DAILY [facility] Rx#:[id number] Piperacillin-Tazobactam 3 50 .375 gm In Dextrose/Water 1 50ml.bag @ 12.5 mls/hr IVPB Q8HR [facility] Rx#: [id number] Oral 500 Output: Urine 515 1530 325 Other: Voiding Method Indwelling Catheter Indwelling Catheter - Labs CBC & Chem 7: 08/18/17 04:22 08/18/17 04:20 Labs: Abnormal Lab Results - Last 24 Hours (Table) 08/17/17 08/17/17 08/17/17 Range/Units 12:02 17:21 17:59 WBC (3.8-10.6) k/uL RBC (4.30-5.90) m/uL Hgb (13.0-17.5) gm/dL Hct (39.0-53.0) % MCHC (31.0-37.0) g/dL RDW (11.5-15.5) % Neutrophils # (1.3-7.7) k/uL Sodium (137-145) mmol/L Chloride (98-107) mmol/L BUN (9-20) mg/dL Creatinine (0.66-1.25) mg/dL Glucose (74-99) mg/dL POC Glucose (mg/dL) 280 H 165 H (75-99) mg/dL Calcium (8.4-10.2) mg/dL Phosphorus (2.5-4.5) mg/dL Magnesium 1.3 L (1.6-2.3) mg/dL AST (17-59) U/L ALT (21-72) U/L Albumin (3.5-5.0) g/dL 08/17/17 08/18/17 08/18/17 Range/Units 21:31 04:20 04:22 WBC 21.9 H (3.8-10.6) k/uL RBC 3.62 L (4.30-5.90) m/uL Hgb 9.1 L (13.0-17.5) gm/dL Hct 30.5 L (39.0-53.0) % MCHC 29.8 L (31.0-37.0) g/dL RDW 17.6 H (11.5-15.5) % Neutrophils # 19.4 H (1.3-7.7) k/uL Sodium 134 L (137-145) mmol/L Chloride 94 L (98-107) mmol/L BUN 56 H (9-20) mg/dL Creatinine 2.44 H (0.66-1.25) mg/dL Glucose 130 H (74-99) mg/dL POC Glucose (mg/dL) 192 H (75-99) mg/dL Calcium 6.6 L (8.4-10.2) mg/dL Phosphorus 5.3 H (2.5-4.5) mg/dL Magnesium (1.6-2.3) mg/dL AST 11 L (17-59) U/L ALT 19 L (21-72) U/L Albumin 2.5 L (3.5-5.0) g/dL 08/18/17 Range/Units 07:24 WBC (3.8-10.6) k/uL RBC (4.30-5.90) m/uL Hgb (13.0-17.5) gm/dL Hct (39.0-53.0) % MCHC (31.0-37.0) g/dL RDW (11.5-15.5) % Neutrophils # (1.3-7.7) k/uL Sodium (137-145) mmol/L Chloride (98-107) mmol/L BUN (9-20) mg/dL Creatinine (0.66-1.25) mg/dL Glucose (74-99) mg/dL POC Glucose (mg/dL) 130 H (75-99) mg/dL Calcium (8.4-10.2) mg/dL Phosphorus (2.5-4.5) mg/dL Magnesium (1.6-2.3) mg/dL AST (17-59) U/L ALT (21-72) U/L Albumin (3.5-5.0) g/dL Assessment and Plan Plan: Assessment: #1. Nonoliguric acute kidney injury secondary to ischemic ATN secondary to hypotension and diuresis. Creatinine starting to stabilize - 2.44 today. No proteinuria on urinalysis. #2. Right-sided pneumonia. Maintained on broad-spectrum antibiotics. #3. Hypotension with systolic blood pressure in the 80s and 90s. A little better today. Cortisol level 9. #4. Chronic kidney disease stage III secondary to chronic NSAID use as well as cisplatin. Recently creatinine has been near 1.8. #5. Acute hypoxic respiratory failure status post bronchoscopy with clearing of mucous plugging. #6. Non-small cell lung cancer being followed by oncology. #7. Hypomagnesemia secondary to diuresis. Improved post replacement. #8. Hypocalcemia secondary to acute kidney injury. Corrected calcium is 8. Asymptomatic. Plan: Decrease rate of IV fluids to 50 mL an hour. Chest x-ray shows right-sided opacification - possibly worsening of pneumonia or recurrence of mucous plug. Discussed with ICU nurse. If respiratory status worsens will give Lasix 60 mg IV. Patient comfortable now. Encouraged oral intake. Replace magnesium. 2 g today. Continue Os-Clifton and Rocaltrol. Avoid nephrotoxic agents and hypotensive episodes. Follow-up cultures. Continue with antibiotics per infectious disease recommendations. Continue to monitor renal function and urine output. Repeat electrolytes in the morning.
[2017-08-18] MEDS: MAGNESIUM SULFATE-D5W PMX 1 GM in DEXTROSE/WATER 1 100ML.BAG IVPB SCH ×2 (11:21→14:36)
[2017-08-18 12:37] LABS: Glucose,Whole Blood 158 mg/dL (75-99)
[2017-08-18] MEDS ORDERED: PROPOFOL 10 MG/ML 20 ML VIAL IV ONE (13:30)
[2017-08-18] MEDS ORDERED: IV FLUID CONTINUATION 1,000 ML IV ONE (13:47)
[2017-08-18] MEDS ORDERED: ALBUTEROL NEBULIZED 2.5 MG/3 ML INHALATION PRN (14:01)
[2017-08-18] MEDS: ALBUTEROL NEBULIZED 2.5 MG/3 ML INHALATION SCH ×2 (16:14→19:44)
[2017-08-18] MEDS: ACETYLCYSTEINE 800 MG/4 ML VIAL INHALATION SCH ×2 (16:14→19:43)
--- NOTE | 2017-08-18 16:52 | P.PN ---
Subjective Principal diagnosis: Acute fall and possible right hip fracture, right lung collapse requiring bronchoscopy and BAL for mucous plug suctioning and right mainstem bronchus. This is a 67-year-old white male with history of multiple medical problems including COPD, chronic congestive heart failure, morbid obesity, previous lobectomy for non-small cell lung cancer over 5 years ago, chronic atrial fibrillation, chronic renal failure, patient was admitted this time on 2016 because he fell as he was drying himself off and put one leg on the bathtub to dry off then switched legs in the process he fell. Patient fell on the left side, however apparently there was some hyperextension of the right hip , came in with severe pain involving the right hip. Workup so far included CT of the hip, x-rays of the hip, are negative for possible fracture. Bone scan is scheduled to confirm that there is no evidence of right hip fracture. Considering his other medical problems including COPD and history of lung cancer as well as his chronic congestive heart failure, and chronic right lower lobe changes related to previous surgery, I was asked to see him on consultation. Presently the patient has minimal dyspnea on exertion, no cough no wheezing no shortness of breath at rest, no chest pain. Patient is usually maintained on a 10 mg of prednisone is also on updraft treatments for COPD. And the patient is on relatively high dose of diuretics for chronic congestive heart failure. His clinical pulmonary and cardiac status seemed to be relatively stable at this point. The patient's main complaint at this point is mostly right hip pain. And difficulty to bear any weight on the right hip. Patient was seen by orthopedics and workup is in progress, awaiting to have a bone scan. But so far the workup is negative for fracture. Patient was reevaluated today on 08/16/2017, apparently the patient developed a significant desaturation early this morning, even when he was placed on a nonrebreather mask, his O2 saturation was marginal. The A TEAM was called to see the patient, and a chest x-ray done showed evidence of almost near complete collapse of the right lung. Obviously this is consistent with mucous plugging involving the right mainstem bronchus. Patient had a previous right lower lobectomy, but when I came in and reviewed the chest x-ray, the findings are clearly consistent with a right mainstem mucous plug. Patient was transferred to the ICU, placed on BiPAP, and I have arranged for immediate stat bronchoscopy at bedside in the ICU. Bronchoscopy was performed, please refer to the full operative report of the bronchoscopy. Indeed there was significant mucus plugging involving the right mainstem bronchus and this was cleared by suctioning. Discussed all the findings with the patient and his family at bedside after the procedure. Patient felt better and after the procedure I placed him back on BiPAP to keep the right lung expanded. May even require another bronchoscopy tomorrow if he collapses again. In the meantime I started the patient on antibiotics in the form of Zosyn, cultures from the fluid obtained from the right lung and the right mainstem bronchus are pending. ABG earlier today showed a pO2 of 47 pCO2 of 46 pH of 7.46. WBC count was noted to be 23.7 hemoglobin is 11. Patient did receive Lasix earlier however his desaturation was mostly pulmonary in nature related to lung collapse rather than cardiac in nature. Reevaluated today on 08/17/2017, patient is now on nasal cannula, saturating nicely, relatively asymptomatic from the pulmonary perspective, however his chest x-ray continues to show some air space disease involving the right midlung area. Patient is already on antibiotics for presumptive pneumonia. Continues to have pain in the right hip, orthopedics is following. So far workup for fracture has been negative, and it was felt that this is most likely a hyperextension type of injury. WBC count today is 29.7 hemoglobin is 9.9 his electrolytes are normal BUN is 47 creatinine 2.40. Magnesium was low and it is being corrected as per protocol. Reevaluated today on 08/18/2017, patient is developing worsening shortness of breath and relative hypoxemia chest x-ray showed 3 collapse of the right lung, hence I proceeded with bronchoscopy and BAL again and I was able to retrieve another large mucous plug from the right mainstem bronchus. Please refer to the full operative report on the bronchoscopy. After the procedure, patient was placed back on BiPAP. I plan to give him Mucomyst in addition to his albuterol updraft treatments to help loosen up secretions, and hopefully not develop mucus plugging again. WBC count is 21.9 hemoglobin is 9.1 basic metabolic profile is normal BUN is 56 creatinine is 2.44. Chest x-ray as noted above. Objective - Vital Signs Vital signs: Vital Signs Temp 97.8 F 08/18/17 16:00 Pulse 86 08/18/17 16:30 Resp 24 08/18/17 16:00 BP 126/80 08/18/17 16:00 Pulse Ox 97 08/18/17 16:00 Intake & Output 08/17/17 08/18/17 08/18/17 18:59 06:59 18:59 Intake Total 500 950 970 Output Total 515 1530 725 Balance -15 -580 245 Weight 143.5 kg 141.2 kg Intake: IV 200 950 200 Magnesium Sulfate-D5w Pmx 200 200 1 gm In Dextrose/Water 1 100ml.bag @ 100 mls/hr IVPB Q1H [facility] Rx#: [id number] Sodium Chloride 0.9% 1, 750 150 000 ml @ 50 mls/hr IV . Q20H [facility] Rx#:[id number] Intake, IV Titration 300 150 Amount Azithromycin 500 mg In 250 Sodium Chloride 0.9% 250 ml @ 125 mls/hr IVPB DAILY [facility] Rx#:[id number] Magnesium Sulfate-D5w Pmx 100 1 gm In Dextrose/Water 1 100ml.bag @ 50 mls/hr IVPB Q2H [facility] Rx#: [id number] Piperacillin-Tazobactam 3 50 50 .375 gm In Dextrose/Water 1 50ml.bag @ 12.5 mls/hr IVPB Q8HR [facility] Rx#: [id number] Oral 620 Output: Urine 515 1530 725 Other: Voiding Method Indwelling Catheter Indwelling Catheter Indwelling Catheter - Exam Physical Exam: Revealed a 67-year-old white male, obese, on BiPAP, in mild respiratory distress. HEENT:[Neck is supple.] [No neck masses.] [No thyromegaly.] [No JVD.] Chest: [Diminished breath sounds on the right side, left side is relatively clear. Cardiac Exam: Distant S1 and S2, no S3 gallop, no murmur.] Abdomen: [Obese, Soft, nontender, no megaly, no rebound, no guarding, normal bowel sounds.] Extremities: [No clubbing, 2+ bipedal edema, no cyanosis.] Chronic venous stasis changes. Neurological Exam: [No focal neurologic deficit.] Musculoskeletal: Continues to have difficulty in the range of motion of the right hip, pain with any movement of the hip. Otherwise unremarkable. Skin: Chronic venous stasis noted in the lower extremities and 2+ bipedal edema noted. Psychiatric: Normal mental status exam, normal affect, no mood changes. - Labs CBC & Chem 7: 08/18/17 04:22 08/18/17 04:20 Labs: Abnormal Lab Results - Last 24 Hours (Table) 08/17/17 08/17/17 08/17/17 Range/Units 17:21 17:59 21:31 WBC (3.8-10.6) k/uL RBC (4.30-5.90) m/uL Hgb (13.0-17.5) gm/dL Hct (39.0-53.0) % MCHC (31.0-37.0) g/dL RDW (11.5-15.5) % Neutrophils # (1.3-7.7) k/uL Sodium (137-145) mmol/L Chloride (98-107) mmol/L BUN (9-20) mg/dL Creatinine (0.66-1.25) mg/dL Glucose (74-99) mg/dL POC Glucose (mg/dL) 165 H 192 H (75-99) mg/dL Calcium (8.4-10.2) mg/dL Phosphorus (2.5-4.5) mg/dL Magnesium 1.3 L (1.6-2.3) mg/dL AST (17-59) U/L ALT (21-72) U/L Albumin (3.5-5.0) g/dL 08/18/17 08/18/17 08/18/17 Range/Units 04:20 04:22 07:24 WBC 21.9 H (3.8-10.6) k/uL RBC 3.62 L (4.30-5.90) m/uL Hgb 9.1 L (13.0-17.5) gm/dL Hct 30.5 L (39.0-53.0) % MCHC 29.8 L (31.0-37.0) g/dL RDW 17.6 H (11.5-15.5) % Neutrophils # 19.4 H (1.3-7.7) k/uL Sodium 134 L (137-145) mmol/L Chloride 94 L (98-107) mmol/L BUN 56 H (9-20) mg/dL Creatinine 2.44 H (0.66-1.25) mg/dL Glucose 130 H (74-99) mg/dL POC Glucose (mg/dL) 130 H (75-99) mg/dL Calcium 6.6 L (8.4-10.2) mg/dL Phosphorus 5.3 H (2.5-4.5) mg/dL Magnesium (1.6-2.3) mg/dL AST 11 L (17-59) U/L ALT 19 L (21-72) U/L Albumin 2.5 L (3.5-5.0) g/dL 08/18/17 Range/Units 12:36 WBC (3.8-10.6) k/uL RBC (4.30-5.90) m/uL Hgb (13.0-17.5) gm/dL Hct (39.0-53.0) % MCHC (31.0-37.0) g/dL RDW (11.5-15.5) % Neutrophils # (1.3-7.7) k/uL Sodium (137-145) mmol/L Chloride (98-107) mmol/L BUN (9-20) mg/dL Creatinine (0.66-1.25) mg/dL Glucose (74-99) mg/dL POC Glucose (mg/dL) 158 H (75-99) mg/dL Calcium (8.4-10.2) mg/dL Phosphorus (2.5-4.5) mg/dL Magnesium (1.6-2.3) mg/dL AST (17-59) U/L ALT (21-72) U/L Albumin (3.5-5.0) g/dL Assessment and Plan Plan: Impression: 1 acute fall, possible right hip fracture, workup is in progress. It is felt that this is most likely a hyperextension type of injury, no fracture could be seen based on the workup done so far. Patient is being followed by orthopedics 2 acute hypoxic respiratory failure secondary to right lung collapse secondary to mucus plugging noted in the right mainstem bronchus., Status post bronchoscopy and suctioning of mucous plugs in the right mainstem bronchus. This was done on 08/16/2017. This was also read done on 08/18/2017. Excellent immediate results on both occasions. 2 history of multiple comorbidities including severe COPD, bronchogenic carcinoma and previous lobectomy, chronic atrial fibrillation, chronic systolic congestive heart failure, type 2 diabetes, history of GERD without esophagitis, history of chronic renal failure, history of right lower lobectomy, history of hearing impairment, history of hidradenitis, and history of morbid obesity. Recommendation: Keep patient in the intensive care unit, continue antibiotics, and Mucomyst to his bronchodilators, will continue to follow closely. Patient will be placed back on BiPAP and nasal cannula high flow intermittently. Discussed his condition with the admitting physician Dr. Schroeder prior to bronchoscopy to patient. Time with Patient: Less than 30
--- NOTE | 2017-08-18 17:08 | PCN ---
PROCEDURE NOTE PROCEDURE: Emergent bronchoscopy and extraction of right mainstem mucus plug. PREOPERATIVE DIAGNOSIS: Near-complete right lung collapse secondary to mucus plugging of the right mainstem bronchus. POSTOPERATIVE DIAGNOSIS: Near-complete right lung collapse secondary to mucus plugging of the right mainstem bronchus. ANESTHESIA USED: The patient was given IV conscious sedation. PROCEDURE: The patient was prepared according to the bronchoscopy protocol. He was placed in a supine position in the intensive care unit, and we monitored his oxygen saturation continuously. Blood pressure was intermittently monitored and cardiac rhythm was continuously monitored. After adequate IV conscious sedation and after placement of a high-flow nasal cannula, the left naris was anesthetized using 2 mL of 1% lidocaine. Then the bronchoscope was advanced to the left naris down to the area of the vocal cords. These were noted to be patent. A bronchoscope was advanced further down to the trachea, and there was no evidence of any pathology in the trachea. No evidence of any pathology was noted on the left side, including left upper lobe, lingula and left lower lobe; however, there was extensive mucus plugging noted in the proximal portion of the right mainstem bronchus extending into the stump of the right lower lobectomy and into the right middle lobe as well as into the right upper lobe. Suctioning was done, and I was able to clear all the mucus plugging noted in the right mainstem bronchus as well as in the area beyond it, including the stump of the right lower lobectomy and the right upper lobe. Procedure was well tolerated. No evidence of any immediate complications. MMODL / IJN: [id number] /
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
[2017-08-18 17:23] LABS: Glucose,Whole Blood 223 mg/dL (75-99)
--- NOTE | 2017-08-18 17:30 | P.PN ---
Subjective Principal diagnosis: Fall with left hip pain 67-year-old male who is well-known to the infectious disease service with as many hospitalizations as well as his hidradenitis. He's had a couple hospitalizations in the last several months that included atrial fibrillation with nonsustained V. tach. He has underlying cardiac murmur. He's had vertigo and acute renal failure. He's had some time at the extended care facility in the past year but is now home Doing relatively well under the care of his . He was hospitalized earlier this year with a bout of congestive heart failure and is in relatively well since that time. The. The patient was bathing and suffered a fall and now presents with severe right sided hip pain. He's been evaluated by orthopedics. The hidradenitis is now being treated with Humira injections at home. This is on Fridays. This has been occurring for the last couple of months now. There is been decreasing amount of drainage. His skin is becoming less erythematous and inflamed. The amount of drainage is improving The family is pleased that there is showing some improvement given the many year history of lack of improvement. However was still must apply large amounts of dressings on a daily basis to contain his drainage. The patient never became progressively more short of breath. Was transferred to intensive care unit. He's been seen by pulmonary and underwent bronchoscopy for removal of large mucous plugging to the right lung. Patient remains on BiPAP but is more stable at this time. Antimicrobial therapy was initiated with concerns to pneumonia with this pulmonary process. Cultures are in process. He has slightly improved pain today. Pulmonary status again was giving him difficulties, and again had bronchoscopy to remove more mucous plugs. Is doing well post procedure. Objective - Vital Signs Vital signs: Vital Signs Temp 97.8 F 08/18/17 16:00 Pulse 86 08/18/17 16:30 Resp 24 08/18/17 16:00 BP 126/80 08/18/17 16:00 Pulse Ox 97 08/18/17 16:00 Intake & Output 08/17/17 08/18/17 08/18/17 18:59 06:59 18:59 Intake Total 500 950 970 Output Total 515 1530 725 Balance -15 580 245 Weight 143.5 kg 141.2 kg Intake: IV 200 950 200 Magnesium Sulfate-D5w Pmx 200 200 1 gm In Dextrose/Water 1 100ml.bag @ 100 mls/hr IVPB Q1H [facility] Rx#: [id number] Sodium Chloride 0.9% 1, 750 150 000 ml @ 50 mls/hr IV . Q20H [facility] Rx#:[id number] Intake, IV Titration 300 150 Amount Azithromycin 500 mg In 250 Sodium Chloride 0.9% 250 ml @ 125 mls/hr IVPB DAILY [facility] Rx#:[id number] Magnesium Sulfate-D5w Pmx 100 1 gm In Dextrose/Water 1 100ml.bag @ 50 mls/hr IVPB Q2H [facility] Rx#: [id number] Piperacillin-Tazobactam 3 50 50 .375 gm In Dextrose/Water 1 50ml.bag @ 12.5 mls/hr IVPB Q8HR [facility] Rx#: [id number] Oral 620 Output: Urine 515 1530 725 Other: Voiding Method Indwelling Catheter Indwelling Catheter Indwelling Catheter - Exam Pleasant 67-year-old gentleman who suffers from obesity who was miserable at this time. BiPAP though is being tolerated. Hip pain is better treated. He is less short of breath. HEENT: Anicteric conjunctiva are pink and moist nasal mucosa grossly intact without significant lesions, there is no thrush. Neck: The neck is supple without significant lymphadenopathy or thyromegaly. Lungs: There is symmetrical air entry with evidence of some crackles at the still at the right base Some expiratory wheezes are heard. Heart: Irregular with an audible S1 and S2 no S3 soft S4 There is no significant murmur click or rub, PMI was nondisplaced. Abdomen: Obese, Positive bowel sounds soft and nontender without palpable masses or organomegaly. There was no guarding or rebound. Extremities: The upper extremities have excellent pulses they are symmetric, no significant petechiae or telangiectasia. No splinter hemorrhages were noted. The left lower extremity is without significant tenderness at this time. Right lower extremity has severe pain upon manipulation. Any attempt to internally or externally rotate the limb causes him to have severe pain. There is at the chronic drainage without change from last evaluation. He has extensive areas of drainage on the buttocks bilaterally and inner thighs. Neuro: Awake alert oriented to person place and time. There are no acute new gross focal sensory motor deficits. - Labs CBC & Chem 7: 08/18/17 04:22 08/18/17 04:20 Labs: Abnormal Lab Results - Last 24 Hours (Table) 08/17/17 08/17/17 08/18/17 Range/Units 17:59 21:31 04:20 WBC (3.8-10.6) k/uL RBC (4.30-5.90) m/uL Hgb (13.0-17.5) gm/dL Hct (39.0-53.0) % MCHC (31.0-37.0) g/dL RDW (11.5-15.5) % Neutrophils # (1.3-7.7) k/uL Sodium 134 L (137-145) mmol/L Chloride 94 L (98-107) mmol/L BUN 56 H (9-20) mg/dL Creatinine 2.44 H (0.66-1.25) mg/dL Glucose 130 H (74-99) mg/dL POC Glucose (mg/dL) 192 H (75-99) mg/dL Calcium 6.6 L (8.4-10.2) mg/dL Phosphorus 5.3 H (2.5-4.5) mg/dL Magnesium 1.3 L (1.6-2.3) mg/dL AST 11 L (17-59) U/L ALT 19 L (21-72) U/L Albumin 2.5 L (3.5-5.0) g/dL 08/18/17 08/18/17 08/18/17 Range/Units 04:22 07:24 12:36 WBC 21.9 H (3.8-10.6) k/uL RBC 3.62 L (4.30-5.90) m/uL Hgb 9.1 L (13.0-17.5) gm/dL Hct 30.5 L (39.0-53.0) % MCHC 29.8 L (31.0-37.0) g/dL RDW 17.6 H (11.5-15.5) % Neutrophils # 19.4 H (1.3-7.7) k/uL Sodium (137-145) mmol/L Chloride (98-107) mmol/L BUN (9-20) mg/dL Creatinine (0.66-1.25) mg/dL Glucose (74-99) mg/dL POC Glucose (mg/dL) 130 H 158 H (75-99) mg/dL Calcium (8.4-10.2) mg/dL Phosphorus (2.5-4.5) mg/dL Magnesium (1.6-2.3) mg/dL AST (17-59) U/L ALT (21-72) U/L Albumin (3.5-5.0) g/dL 08/18/17 Range/Units 17:20 WBC (3.8-10.6) k/uL RBC (4.30-5.90) m/uL Hgb (13.0-17.5) gm/dL Hct (39.0-53.0) % MCHC (31.0-37.0) g/dL RDW (11.5-15.5) % Neutrophils # (1.3-7.7) k/uL Sodium (137-145) mmol/L Chloride (98-107) mmol/L BUN (9-20) mg/dL Creatinine (0.66-1.25) mg/dL Glucose (74-99) mg/dL POC Glucose (mg/dL) 223 H (75-99) mg/dL Calcium (8.4-10.2) mg/dL Phosphorus (2.5-4.5) mg/dL Magnesium (1.6-2.3) mg/dL AST (17-59) U/L ALT (21-72) U/L Albumin (3.5-5.0) g/dL Laboratory Results WBC 21.9 k/uL (3.8-10.6) H 08/18/17 04:22 RBC 3.62 m/uL (4.30-5.90) L 08/18/17 04:22 Hgb 9.1 gm/dL (13.0-17.5) L 08/18/17 04:22 Hct 30.5 % (39.0-53.0) L 08/18/17 04:22 MCV 84.3 fL (80.0-100.0) 08/18/17 04:22 MCH 25.2 pg (25.0-35.0) 08/18/17 04:22 MCHC 29.8 g/dL (31.0-37.0) L 08/18/17 04:22 RDW 17.6 % (11.5-15.5) H 08/18/17 04:22 Plt Count 442 k/uL (150-450) 08/18/17 04:22 Neutrophils % 89 % 08/18/17 04:22 Lymphocytes % 7 % 08/18/17 04:22 Monocytes % 3 % 08/18/17 04:22 Eosinophils % 1 % 08/18/17 04:22 Basophils % 0 % 08/18/17 04:22 Neutrophils # 19.4 k/uL (1.3-7.7) H 08/18/17 04:22 Lymphocytes # 1.5 k/uL (1.0-4.8) 08/18/17 04:22 Monocytes # 0.7 k/uL (0-1.0) 08/18/17 04:22 Eosinophils # 0.2 k/uL (0-0.7) 08/18/17 04:22 Basophils # 0.0 k/uL (0-0.2) 08/18/17 04:22 Hypochromasia Moderate 08/18/17 04:22 Anisocytosis Slight 08/18/17 04:22 Sample Site lbrac 08/16/17 08:01 ABG pH 7.46 (7.35-7.45) H 08/16/17 08:01 ABG pCO2 46 mmHg (35-45) H 08/16/17 08:01 ABG pO2 47 mmHg (83-108) L 08/16/17 08:01 ABG HCO3 32 mmol/L (21-25) H 08/16/17 08:01 ABG Total CO2 34 mmol/L (19-24) H 08/16/17 08:01 ABG O2 Saturation 85.0 % (94-97) L 08/16/17 08:01 ABG Base Excess 8.0 mmol/L 08/16/17 08:01 FiO2 60 % 08/16/17 08:01 Sodium 134 mmol/L (137-145) L 08/18/17 04:20 Potassium 4.3 mmol/L (3.5-5.1) 08/18/17 04:20 Chloride 94 mmol/L (98-107) L 08/18/17 04:20 Carbon Dioxide 30 mmol/L (22-30) 08/18/17 04:20 Anion Gap 10 mmol/L 08/18/17 04:20 BUN 56 mg/dL (9-20) H 08/18/17 04:20 Creatinine 2.44 mg/dL (0.66-1.25) H 08/18/17 04:20 Est GFR (MDRD) Af Amer 32 (>60 ml/min/1.73 sqM) 08/18/17 04:20 Est GFR (MDRD) Non-Af 26 (>60 ml/min/1.73 sqM) 08/18/17 04:20 Glucose 130 mg/dL (74-99) H 08/18/17 04:20 POC Glucose (mg/dL) 223 mg/dL (75-99) H 08/18/17 17:20 POC Glu [employer] Samantha Delong 08/18/17 17:[address] Glu mg/dL 143 mg/dL 08/16/17 07:03 Hemoglobin A1c 6.6 % (4.2-6.1) H 08/16/17 07:03 Calcium 6.6 mg/dL (8.4-10.2) L 08/18/17 04:20 Phosphorus 5.3 mg/dL (2.5-4.5) H 08/18/17 04:20 Magnesium 1.6 mg/dL (1.6-2.3) 08/18/17 04:20 Total Bilirubin 0.2 mg/dL (0.2-1.3) 08/18/17 04:20 AST 11 U/L (17-59) L 08/18/17 04:20 ALT 19 U/L (21-72) L 08/18/17 04:20 Alkaline Phosphatase 85 U/L (38-126) 08/18/17 04:20 Total Protein 6.7 g/dL (6.3-8.2) 08/18/17 04:20 Albumin 2.5 g/dL (3.5-5.0) L 08/18/17 04:20 Cortisol 9 ug/dL 08/17/17 04:38 Urine Color Yellow 08/14/17 23:45 Urine Appearance Clear (Clear) 08/14/17 23:45 Urine pH 5.5 (5.0-8.0) 08/14/17 23:45 Ur Specific [place] 1.011 (1.001-1.035) 08/14/17 23:45 Urine Protein Negative (Negative) 08/14/17 23:45 Urine Glucose (UA) Negative (Negative) 08/14/17 23:45 Urine Ketones Negative (Negative) 08/14/17 23:45 Urine Blood Trace (Negative) H 08/14/17 23:45 Urine Nitrite Negative (Negative) 08/14/17 23:45 Urine Bilirubin Negative (Negative) 08/14/17 23:45 Urine Urobilinogen <2.0 mg/dL (<2.0) 08/14/17 23:45 Ur Leukocyte Esterase Negative (Negative) 08/14/17 23:45 Urine RBC 9 /hpf (0-5) H 08/14/17 23:45 Urine WBC 1 /hpf (0-5) 08/14/17 23:45 Hyaline Casts 3 /lpf (0-2) H 08/14/17 23:45 Urine Mucus Rare /hpf (None) H 08/14/17 23:45 Assessment and Plan (1) Fall Status: Acute (2) Acute right hip pain Status: Acute (3) Rib pain on left side Status: Acute (4) Hidradenitis suppurativa Narrative/Plan: 67-year-old male has multiple medical troubles including his history of squamous cell lung cancer fifth being monitored by oncology. He is followed in the infectious disease office for the treatment of his hidradenitis which is being treated currently with Humira. There has been some improvement of his significant disease state but not resolution. The last office visit the and I agreed that we would continue treatment at least until the next quarter. He tolerated this very well. He has had no worsening of his anemia or renal failure . While in hospital his Humira is on hold. Continues to have significant pain to the right hip because of the fall. Orthopedics is following. Orthopedics apparently does not believe that there is a fracture and just has a hyperextension injury. And they will follow as needed. Is noted he is on BiPAP for his respiratory failure from his mucous plugging. Antimicrobial therapy is in process and cultures will help further direct this the time of discharge. Rocephin is discontinued at this time. He is having more comfortable at this time. As has noted dressings are not needed just have him on a drainage had and allow the drainage from his large draining sinus tracts to be absorbed into the pads. If he needs to be moved about, a brief maybe applied. The difficulty is the pain that he has to his right hip. Status: Acute
[2017-08-18 19:04] LABS: Iron Saturation 16.96 (15.00-50.00)
[2017-08-18] MEDS: MULTIVITAMINS, THERA 1 EACH TAB PO SCH (21:13)
[2017-08-18 21:27] LABS: Glucose,Whole Blood 210 mg/dL (75-99)
[2017-08-18] MEDS ORDERED: ADALIMUMAB 80 MG/1.6 ML KIT SQ SCH (22:00)
[2017-08-19] MEDS: MORPHINE SULFATE 4 MG/ML SYRINGE IV PRN ×2 (03:00→09:07)
[2017-08-19 04:47] LABS: Anisocytosis Slight; Basophils # (A) 0.1 k/uL (0-0.2); Basophils % (A) 0 %; CH 25.4; CHCM 29.7; Eosinophils # (A) 0.2 k/uL (0-0.7); Eosinophils % (A) 1 %; HDW 2.55; Hypochromasia Marked; Luc # (Auto) 0.14; Luc % (Auto) 1; Lymphocytes # (A) 1.2 k/uL (1.0-4.8); Lymphocytes % (A) 6 %; MCH 25.2 pg (25.0-35.0); MCHC 29.4 g/dL (31.0-37.0); MCV 85.7 fL (80.0-100.0); Mean Platelet Volume 7.3; Monocytes # (A) 0.7 k/uL (0-1.0); Monocytes % (A) 3 %; Neutrophils # (A) 19.5 k/uL (1.3-7.7); Neutrophils % (A) 89 %; RBC 3.97 m/uL (4.30-5.90); RDW 17.7 % (11.5-15.5); WBC 21.9 k/uL (3.8-10.6); WBC (Perox) 22.15
[2017-08-19 05:01] LABS: Calcium 7.9 mg/dL (8.4-10.2); Magnesium 1.8 mg/dL (1.6-2.3); Potassium 4.3 mmol/L (3.5-5.1); Total Bilirubin 0.3 mg/dL (0.2-1.3); Total Protein 7.3 g/dL (6.3-8.2)
[2017-08-19] MEDS: MAGNESIUM SULFATE-D5W PMX 1 GM in DEXTROSE/WATER 1 100ML.BAG IVPB SCH ×2 (07:11→09:08)
[2017-08-19] MEDS: ACETYLCYSTEINE 800 MG/4 ML VIAL INHALATION SCH ×4 (07:56→20:38)
[2017-08-19] MEDS: ALBUTEROL NEBULIZED 2.5 MG/3 ML INHALATION SCH ×4 (07:57→20:39)
[2017-08-19 07:59] LABS: Glucose,Whole Blood 148 mg/dL (75-99)
--- NOTE | 2017-08-19 08:26 | XR ---
EXAMINATION TYPE: XR chest 1V portable DATE OF EXAM: 08/19/2017 HISTORY: respiratory failure. REFERENCE: Previous study dated 08/18/2017. FINDINGS: There is improved aeration of the right lung. There continues to be diffuse airspace disease on the right. There is cardiomegaly, vascular congestion and mild interstitial change. IMPRESSION: 1. IMPROVED AERATION, RIGHT LUNG. 2. FINDINGS CONSISTENT WITH CONGESTIVE HEART FAILURE. MTDD
[2017-08-19] MEDS: METOPROLOL SUCCINATE (ER) 25 MG TAB.ER.24H PO SCH ×2 (08:59→21:45)
[2017-08-19] MEDS: AZITHROMYCIN 500 MG TAB PO SCH (09:00)
[2017-08-19] MEDS: predniSONE 10 MG TAB PO SCH (09:00)
[2017-08-19] MEDS: NYSTATIN 100,000 UNIT/ML SUSP 500,000 UNIT/5 ML CUP PO SCH ×4 (09:00→21:48)
[2017-08-19] MEDS: PANTOPRAZOLE 40 MG TABLET PO SCH (09:00)
[2017-08-19] MEDS: guaiFENesin 600 MG TABLET.ER PO SCH ×2 (09:00→21:45)
[2017-08-19] MEDS: CITALOPRAM HYDROBROMIDE 20 MG TAB PO SCH (09:01)
[2017-08-19] MEDS: BACITRACIN 500 UNIT/GM OINT 28.4 GM TUBE TOPICAL SCH (09:01)
[2017-08-19] MEDS: LINAGLIPTIN 5 MG TABLET PO SCH (09:02)
[2017-08-19] MEDS: ALLOPURINOL 100 MG TAB PO SCH (09:02)
[2017-08-19] MEDS: DILTIAZEM CD 180 MG CAP.ER.24H PO SCH (09:02)
--- NOTE | 2017-08-19 09:04 | P.PN ---
Subjective This is a 67-year-old male is followed up because of chronic kidney disease and acute kidney injury. He came in after a fall on 08/14/2017. He had acute kidney injury from prerenal. Yesterday he underwent a second bronchoscopy because of complete right lung collapse and additionally he was given some IV fluids because of hypotension and his creatinine did improve this morning from 2.4-1.9. Is known with known small cell CA, COPD, obesity, previous lobectomy for lung cancer about 5 years ago, chronic atrial fibrillation. Here in the hospital he has been bronched twice because of mucous plugging of his right lung with complete collapse. Yesterday his x-ray and shown collapse this morning is much better, post bronchoscopy yesterday 08/18/2017.. He remains on oxygen remained short of breath. He states he has some appetite this morning. Complains of generalized weakness as well. Objective - Vital Signs Vital signs: Vital Signs Temp 98.4 F 08/19/17 04:00 Pulse 98 08/19/17 08:20 Resp 19 08/19/17 08:00 BP 155/76 08/19/17 08:00 Pulse Ox 96 08/19/17 08:06 Intake & Output 08/18/17 08/19/17 08/19/17 18:59 06:59 18:59 Intake Total 970 1150 50 Output Total 725 1055 500 Balance 245 95 -450 Weight 138.3 kg Intake: IV 200 450 50 Sodium Chloride 0.9% 1, 150 450 50 000 ml @ 50 mls/hr IV . Q20H [facility] Rx#:[id number] Intake, IV Titration 150 Amount Magnesium Sulfate-D5w Pmx 100 1 gm In Dextrose/Water 1 100ml.bag @ 50 mls/hr IVPB Q2H [facility] Rx#: [id number] Piperacillin-Tazobactam 3 50 .375 gm In Dextrose/Water 1 50ml.bag @ 12.5 mls/hr IVPB Q8HR [facility] Rx#: [id number] Oral 620 700 Output: Urine 725 1055 500 Other: Voiding Method Indwelling Catheter Indwelling Catheter On examination is awake alert oriented 10. He is on oxygen via nasal cannula but is being changed to BiPAP because of the frequent collapse of the lungs. HEENT exam no JVP noted neck is supple no facial asymmetry pupils are equal. Lungs are significant for bilateral coarse crackles and diminished air entry on the right with more crackles on the right than on the left. Heart sounds are unremarkable for any murmur rub gallop He is in atrial fibrillation. Abdomen is soft obese but no tenderness in the right or left upper quadrant no masses felt. Extremity exam was 2+ edema Neurologically awake alert oriented but profoundly weak. - Labs CBC & Chem 7: 08/19/17 04:22 08/19/17 04:20 Labs: Abnormal Lab Results - Last 24 Hours (Table) 08/18/17 08/18/17 08/18/17 Range/Units 12:36 17:20 21:24 WBC (3.8-10.6) k/uL RBC (4.30-5.90) m/uL Hgb (13.0-17.5) gm/dL Hct (39.0-53.0) % MCHC (31.0-37.0) g/dL RDW (11.5-15.5) % Plt Count (150-450) k/uL Neutrophils # (1.3-7.7) k/uL Sodium (137-145) mmol/L Chloride (98-107) mmol/L BUN (9-20) mg/dL Creatinine (0.66-1.25) mg/dL Glucose (74-99) mg/dL POC Glucose (mg/dL) 158 H 223 H 210 H (75-99) mg/dL Calcium (8.4-10.2) mg/dL AST (17-59) U/L Albumin (3.5-5.0) g/dL 08/19/17 08/19/17 08/19/17 Range/Units 04:20 04:22 07:57 WBC 21.9 H (3.8-10.6) k/uL RBC 3.97 L (4.30-5.90) m/uL Hgb 10.0 L (13.0-17.5) gm/dL Hct 34.0 L (39.0-53.0) % MCHC 29.4 L (31.0-37.0) g/dL RDW 17.7 H (11.5-15.5) % Plt Count 480 H (150-450) k/uL Neutrophils # 19.5 H (1.3-7.7) k/uL Sodium 134 L (137-145) mmol/L Chloride 95 L (98-107) mmol/L BUN 49 H (9-20) mg/dL Creatinine 1.90 H (0.66-1.25) mg/dL Glucose 119 H (74-99) mg/dL POC Glucose (mg/dL) 148 H (75-99) mg/dL Calcium 7.9 L (8.4-10.2) mg/dL AST 14 L (17-59) U/L Albumin 2.7 L (3.5-5.0) g/dL Assessment and Plan Plan: 1. Chronic kidney disease stage III secondary to nonsteroidal use, as well as exposure to cis-[place] in the past for lung cancer. Baseline creatinine is about 1.4 but more recently supposedly is in the 1.8 range. 2. Acute kidney injury secondary to prerenal secondary to pneumonia collapse of lung and hypotension. Started on IV fluids 08/17/2017 with improvement in creatinine. 3. Known small cell lung cancer with remote lobectomy. 4. Mild to moderate edema. 5. Atrial fibrillation, 6. Mild hyponatremia sodium is 134, which is stable. etiology is acute kidney injury and chronic kidney disease. Recommendation. 1. Hold IV fluids. Keep open at 20 mL an hour, as he has significant edema and his blood pressure is currently in the 150s 2. Continue to hold Lasix for 1 more day. Likely will start tomorrow 3. Watch hyponatremia 4. Encourage oral intake 5. Calcium somewhat low but given his low albumin corrected calcium is within normal range
[2017-08-19] MEDS: CALCIUM CARB-VIT D 500MG-200UN 1 EACH TAB PO SCH ×2 (09:15→17:28)
[2017-08-19] MEDS: INSULIN LISPRO (humaLOG) 300 UNIT/3 ML VIAL SQ SCH ×4 (09:16→21:46)
[2017-08-19] MEDS: PIPERACILLIN-TAZOBACTAM 3.375 GM in DEXTROSE/WATER 1 50ML.BAG IVPB SCH ×3 (09:47→23:55)
[2017-08-19] MEDS: SODIUM CHLORIDE 0.9% 1,000 ML IV SCH ×4 (09:49→21:48)
[2017-08-19 12:09] LABS: Glucose,Whole Blood 209 mg/dL (75-99)
--- NOTE | 2017-08-19 12:32 | P.PN ---
Subjective Principal diagnosis: Acute fall and possible right hip fracture, right lung collapse requiring bronchoscopy and BAL for mucous plug suctioning and right mainstem bronchus. This is a 67-year-old white male with history of multiple medical problems including COPD, chronic congestive heart failure, morbid obesity, previous lobectomy for non-small cell lung cancer over 5 years ago, chronic atrial fibrillation, chronic renal failure, patient was admitted this time on 2016 because he fell as he was drying himself off and put one leg on the bathtub to dry off then switched legs in the process he fell. Patient fell on the left side, however apparently there was some hyperextension of the right hip , came in with severe pain involving the right hip. Workup so far included CT of the hip, x-rays of the hip, are negative for possible fracture. Bone scan is scheduled to confirm that there is no evidence of right hip fracture. Considering his other medical problems including COPD and history of lung cancer as well as his chronic congestive heart failure, and chronic right lower lobe changes related to previous surgery, I was asked to see him on consultation. Presently the patient has minimal dyspnea on exertion, no cough no wheezing no shortness of breath at rest, no chest pain. Patient is usually maintained on a 10 mg of prednisone is also on updraft treatments for COPD. And the patient is on relatively high dose of diuretics for chronic congestive heart failure. His clinical pulmonary and cardiac status seemed to be relatively stable at this point. The patient's main complaint at this point is mostly right hip pain. And difficulty to bear any weight on the right hip. Patient was seen by orthopedics and workup is in progress, awaiting to have a bone scan. But so far the workup is negative for fracture. Patient was reevaluated today on 08/16/2017, apparently the patient developed a significant desaturation early this morning, even when he was placed on a nonrebreather mask, his O2 saturation was marginal. The A TEAM was called to see the patient, and a chest x-ray done showed evidence of almost near complete collapse of the right lung. Obviously this is consistent with mucous plugging involving the right mainstem bronchus. Patient had a previous right lower lobectomy, but when I came in and reviewed the chest x-ray, the findings are clearly consistent with a right mainstem mucous plug. Patient was transferred to the ICU, placed on BiPAP, and I have arranged for immediate stat bronchoscopy at bedside in the ICU. Bronchoscopy was performed, please refer to the full operative report of the bronchoscopy. Indeed there was significant mucus plugging involving the right mainstem bronchus and this was cleared by suctioning. Discussed all the findings with the patient and his family at bedside after the procedure. Patient felt better and after the procedure I placed him back on BiPAP to keep the right lung expanded. May even require another bronchoscopy tomorrow if he collapses again. In the meantime I started the patient on antibiotics in the form of Zosyn, cultures from the fluid obtained from the right lung and the right mainstem bronchus are pending. ABG earlier today showed a pO2 of 47 pCO2 of 46 pH of 7.46. WBC count was noted to be 23.7 hemoglobin is 11. Patient did receive Lasix earlier however his desaturation was mostly pulmonary in nature related to lung collapse rather than cardiac in nature. Reevaluated today on 08/17/2017, patient is now on nasal cannula, saturating nicely, relatively asymptomatic from the pulmonary perspective, however his chest x-ray continues to show some air space disease involving the right midlung area. Patient is already on antibiotics for presumptive pneumonia. Continues to have pain in the right hip, orthopedics is following. So far workup for fracture has been negative, and it was felt that this is most likely a hyperextension type of injury. WBC count today is 29.7 hemoglobin is 9.9 his electrolytes are normal BUN is 47 creatinine 2.40. Magnesium was low and it is being corrected as per protocol. Reevaluated today on 08/18/2017, patient is developing worsening shortness of breath and relative hypoxemia chest x-ray showed 3 collapse of the right lung, hence I proceeded with bronchoscopy and BAL again and I was able to retrieve another large mucous plug from the right mainstem bronchus. Please refer to the full operative report on the bronchoscopy. After the procedure, patient was placed back on BiPAP. I plan to give him Mucomyst in addition to his albuterol updraft treatments to help loosen up secretions, and hopefully not develop mucus plugging again. WBC count is 21.9 hemoglobin is 9.1 basic metabolic profile is normal BUN is 56 creatinine is 2.44. Chest x-ray as noted above. Reevaluated today on 08/09/2017, patient has been doing well since his last bronchoscopy yesterday. Early this morning he is on nasal cannula, chest x-ray is showing improved aeration of the right lung, there may be some component of underlying pneumonia involving the right lung, and possibly mild congestive heart failure changes. However the patient remains on high dose of Lasix. And his renal functioning seems to be actually improved. WBC count is elevated at 21.9 hemoglobin is 10. BUN is 49 creatinine is 1.90. We'll try to give the patient an extra dose of Lasix a day. In the meantime we'll continue antibiotics and continue bronchodilators, chest physical therapy, and BiPAP intermittently. Objective - Vital Signs Vital signs: Vital Signs Temp 98.4 F 08/19/17 04:00 Pulse 81 08/19/17 12:15 Resp 14 08/19/17 12:00 BP 120/75 08/19/17 12:00 Pulse Ox 100 08/19/17 12:00 Intake & Output 08/18/17 08/19/17 08/19/17 18:59 06:59 18:59 Intake Total 970 1150 640 Output Total 725 1055 1225 Balance 245 95 -585 Weight 138.3 kg Intake: IV 200 450 250 Sodium Chloride 0.9% 1, 150 450 250 000 ml @ 50 mls/hr IV . Q20H [facility] Rx#:[id number] Intake, IV Titration 150 150 Amount Magnesium Sulfate-D5w Pmx 100 100 1 gm In Dextrose/Water 1 100ml.bag @ 50 mls/hr IVPB Q2H [facility] Rx#: [id number] Piperacillin-Tazobactam 3 50 50 .375 gm In Dextrose/Water 1 50ml.bag @ 12.5 mls/hr IVPB Q8HR [facility] Rx#: [id number] Oral 620 700 240 Output: Urine 725 1055 1225 Other: Voiding Method Indwelling Catheter Indwelling Catheter Indwelling Catheter # Bowel Movements 1 - Exam Physical Exam: Revealed a 67-year-old white male, obese, nasal cannula in no distress. HEENT:[Neck is supple.] [No neck masses.] [No thyromegaly.] [No JVD.] Chest: [Symmetrical chest expansion, minimal crackles in the right midlung area , diminished at the right base. No rhonchi, no wheezes. Cardiac Exam: Distant S1 and S2, no S3 gallop, no murmur.] Abdomen: [Obese, Soft, nontender, no megaly, no rebound, no guarding, normal bowel sounds.] Extremities: [No clubbing, 2+ bipedal edema, no cyanosis.] Chronic venous stasis changes. Neurological Exam: [No focal neurologic deficit.] Musculoskeletal: Continues to have difficulty in the range of motion of the right hip, pain with any movement of the hip. Otherwise unremarkable. Skin: Chronic venous stasis noted in the lower extremities and 2+ bipedal edema noted. Psychiatric: Normal mental status exam, normal affect, no mood changes. - Labs CBC & Chem 7: 08/19/17 04:22 08/19/17 04:20 Labs: Abnormal Lab Results - Last 24 Hours (Table) 08/18/17 08/18/17 08/18/17 Range/Units 12:36 17:20 21:24 WBC (3.8-10.6) k/uL RBC (4.30-5.90) m/uL Hgb (13.0-17.5) gm/dL Hct (39.0-53.0) % MCHC (31.0-37.0) g/dL RDW (11.5-15.5) % Plt Count (150-450) k/uL Neutrophils # (1.3-7.7) k/uL Sodium (137-145) mmol/L Chloride (98-107) mmol/L BUN (9-20) mg/dL Creatinine (0.66-1.25) mg/dL Glucose (74-99) mg/dL POC Glucose (mg/dL) 158 H 223 H 210 H (75-99) mg/dL Calcium (8.4-10.2) mg/dL AST (17-59) U/L Albumin (3.5-5.0) g/dL 08/19/17 08/19/17 08/19/17 Range/Units 04:20 04:22 07:57 WBC 21.9 H (3.8-10.6) k/uL RBC 3.97 L (4.30-5.90) m/uL Hgb 10.0 L (13.0-17.5) gm/dL Hct 34.0 L (39.0-53.0) % MCHC 29.4 L (31.0-37.0) g/dL RDW 17.7 H (11.5-15.5) % Plt Count 480 H (150-450) k/uL Neutrophils # 19.5 H (1.3-7.7) k/uL Sodium 134 L (137-145) mmol/L Chloride 95 L (98-107) mmol/L BUN 49 H (9-20) mg/dL Creatinine 1.90 H (0.66-1.25) mg/dL Glucose 119 H (74-99) mg/dL POC Glucose (mg/dL) 148 H (75-99) mg/dL Calcium 7.9 L (8.4-10.2) mg/dL AST 14 L (17-59) U/L Albumin 2.7 L (3.5-5.0) g/dL 08/19/17 Range/Units 12:07 WBC (3.8-10.6) k/uL RBC (4.30-5.90) m/uL Hgb (13.0-17.5) gm/dL Hct (39.0-53.0) % MCHC (31.0-37.0) g/dL RDW (11.5-15.5) % Plt Count (150-450) k/uL Neutrophils # (1.3-7.7) k/uL Sodium (137-145) mmol/L Chloride (98-107) mmol/L BUN (9-20) mg/dL Creatinine (0.66-1.25) mg/dL Glucose (74-99) mg/dL POC Glucose (mg/dL) 209 H (75-99) mg/dL Calcium (8.4-10.2) mg/dL AST (17-59) U/L Albumin (3.5-5.0) g/dL Assessment and Plan Plan: Impression: 1 acute fall, possible right hip fracture, workup is in progress. It is felt that this is most likely a hyperextension type of injury, no fracture could be seen based on the workup done so far. Patient is being followed by orthopedics 2 acute hypoxic respiratory failure secondary to right lung collapse secondary to mucus plugging noted in the right mainstem bronchus., Status post bronchoscopy and suctioning of mucous plugs in the right mainstem bronchus. This was done on 08/16/2017. This was done on 08/18/2017. Excellent immediate results on both occasions. 2 history of multiple comorbidities including severe COPD, bronchogenic carcinoma and previous lobectomy, chronic atrial fibrillation, chronic systolic congestive heart failure, type 2 diabetes, history of GERD without esophagitis, history of chronic renal failure, history of right lower lobectomy, history of hearing impairment, history of hidradenitis, and history of morbid obesity. Recommendation: Keep patient in the intensive care unit, continue antibiotics, continue Mucomyst to his bronchodilators, will given a dose of Lasix today because of his abnormal chest x-ray findings, no need for bronchoscopy today. will continue to follow closely. Patient will be placed back on BiPAP and nasal cannula high flow intermittently. Discussed the patient's condition with the time study technologist today. Time with Patient: Less than 30
[2017-08-19] MEDS: METOLAZONE 5 MG TAB PO SCH (13:27)
[2017-08-19] MEDS: HYDROcodone/APAP 7.5-325MG 1 EACH TAB PO PRN ×2 (16:19→23:51)
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
[2017-08-19] MEDS: BISMUTH SUBSALICYLATE 4,192 MG/240 ML BOTTLE PO PRN ×2 (16:35→22:54)
[2017-08-19 17:32] LABS: Glucose,Whole Blood 192 mg/dL (75-99)
[2017-08-19] MEDS: MULTIVITAMINS, THERA 1 EACH TAB PO SCH (21:45)
[2017-08-19 21:49] LABS: Glucose,Whole Blood 156 mg/dL (75-99)
[2017-08-19] MEDS: LORazepam 2 MG/ML INJ IV PRN (23:50)
[2017-08-20 04:43] LABS: Anisocytosis Slight; Basophils # (A) 0.1 k/uL (0-0.2); Basophils % (A) 0 %; CH 25.7; CHCM 29.5; Eosinophils # (A) 0.3 k/uL (0-0.7); Eosinophils % (A) 2 %; HCT 34.6 % (39.0-53.0); HDW 2.55; HGB 10.2 gm/dL (13.0-17.5); Hypochromasia Marked; Luc # (Auto) 0.11; Luc % (Auto) 1; Lymphocytes # (A) 1.3 k/uL (1.0-4.8); Lymphocytes % (A) 7 %; MCH 25.9 pg (25.0-35.0); MCHC 29.5 g/dL (31.0-37.0); MCV 87.7 fL (80.0-100.0); Mean Platelet Volume 7.2; Monocytes # (A) 0.9 k/uL (0-1.0); Monocytes % (A) 5 %; Neutrophils # (A) 16.5 k/uL (1.3-7.7); Neutrophils % (A) 86 %; RBC 3.94 m/uL (4.30-5.90); RDW 17.8 % (11.5-15.5); WBC 19.1 k/uL (3.8-10.6); WBC (Perox) 19.72
[2017-08-20 04:55] LABS: Calcium 8.5 mg/dL (8.4-10.2); Potassium 4.5 mmol/L (3.5-5.1); Total Bilirubin 0.3 mg/dL (0.2-1.3); Total Protein 6.8 g/dL (6.3-8.2)
--- NOTE | 2017-08-20 06:44 | XR ---
EXAMINATION TYPE: XR chest 1V portable DATE OF EXAM: 08/20/2017 HISTORY: respiratory failure. REFERENCE: Previous study dated 08/19/2017. FINDINGS: There is worsening opacity of the right lung. This is now completely zachary out. Heart size is obscured. There is vascular congestion on the left. The left pleural space is clear. IMPRESSION: WORSENING OPACITY OF THE RIGHT LUNG.
[2017-08-20 07:28] LABS: Glucose,Whole Blood 156 mg/dL (75-99)
[2017-08-20] MEDS: HYDROcodone/APAP 7.5-325MG 1 EACH TAB PO PRN (07:40)
[2017-08-20] MEDS: ACETYLCYSTEINE 800 MG/4 ML VIAL INHALATION SCH ×4 (08:12→20:29)
[2017-08-20] MEDS: ALBUTEROL NEBULIZED 2.5 MG/3 ML INHALATION SCH ×4 (08:12→20:29)
[2017-08-20] MEDS: NYSTATIN 100,000 UNIT/ML SUSP 500,000 UNIT/5 ML CUP PO SCH ×4 (08:21→20:42)
[2017-08-20] MEDS: AZITHROMYCIN 500 MG TAB PO SCH (08:22)
[2017-08-20] MEDS: CALCIUM CARB-VIT D 500MG-200UN 1 EACH TAB PO SCH ×2 (08:22→18:26)
[2017-08-20] MEDS: PANTOPRAZOLE 40 MG TABLET PO SCH (08:22)
[2017-08-20] MEDS: METOPROLOL SUCCINATE (ER) 25 MG TAB.ER.24H PO SCH ×2 (08:22→20:41)
[2017-08-20] MEDS: predniSONE 10 MG TAB PO SCH (08:22)
[2017-08-20] MEDS: LINAGLIPTIN 5 MG TABLET PO SCH (08:23)
[2017-08-20] MEDS: CITALOPRAM HYDROBROMIDE 20 MG TAB PO SCH (08:23)
[2017-08-20] MEDS: DILTIAZEM CD 180 MG CAP.ER.24H PO SCH (08:23)
[2017-08-20] MEDS: METOLAZONE 5 MG TAB PO SCH (08:23)
[2017-08-20] MEDS: guaiFENesin 600 MG TABLET.ER PO SCH ×2 (08:23→20:42)
[2017-08-20] MEDS: ALLOPURINOL 100 MG TAB PO SCH (08:24)
[2017-08-20] MEDS: INSULIN LISPRO (humaLOG) 300 UNIT/3 ML VIAL SQ SCH ×4 (08:25→20:45)
[2017-08-20] MEDS: BACITRACIN 500 UNIT/GM OINT 28.4 GM TUBE TOPICAL SCH (08:25)
[2017-08-20] MEDS: PIPERACILLIN-TAZOBACTAM 3.375 GM in DEXTROSE/WATER 1 50ML.BAG IVPB SCH ×2 (08:42→15:56)
[2017-08-20] MEDS ORDERED: FAMOTIDINE 20 MG/2 ML VIAL IV ONE (09:38)
[2017-08-20] MEDS ORDERED: METOCLOPRAMIDE 5 MG/ML 2 ML VIAL IVP STA (09:38)
[2017-08-20] MEDS ORDERED: PROPOFOL 10 MG/ML 20 ML VIAL IV ONE (09:49)
[2017-08-20] MEDS ORDERED: LIDOCAINE 1% INJ 10MG/ML (20 ML MDV) ONE (09:49)
[2017-08-20] MEDS ORDERED: MIDAZOLAM 2 MG/2 ML VIAL ONE (09:49)
[2017-08-20] MEDS ORDERED: GLYCOPYRROLATE 0.2 MG/ML 2 ML VIAL ONE (09:49)
[2017-08-20] MEDS ORDERED: LIDOCAINE 2% INJ 20 MG/ML INTRATRACH ONE (10:10)
[2017-08-20] MEDS ORDERED: ACETYLCYSTEINE IV 200 MG/ML 30 ML VIAL IV ONE (10:12)
--- NOTE | 2017-08-20 10:49 | P.PN ---
Subjective This is a 67-year-old male is followed up because of chronic kidney disease and acute kidney injury. He came in after a fall on 08/14/2017. He had acute kidney injury from prerenal. He has been having difficulties with collapsed lung on the right side frequently from mucus plugging and today he had his third bronchoscopy within the last 3 days approximately. Currently he is awake alert on oxygen via a mask. He is arousable and tries to follow commands. His creatinine has been improving. His blood pressure is somewhat low in the 110s range, and he is on Cardizem 360 mg, metoprolol 12.5 mg twice a day and Zaroxolyn 5 mg a day. His urine output is adequate at 1700 mL Is known with known small cell CA, COPD, obesity, previous lobectomy for lung cancer about 5 years ago, chronic atrial fibrillation. Objective - Vital Signs Vital signs: Vital Signs Temp 98 F 08/20/17 08:00 Pulse 102 H 08/20/17 10:20 Resp 21 08/20/17 10:20 BP 93/80 08/20/17 10:20 Pulse Ox 86 L 08/20/17 10:20 Intake & Output 08/19/17 08/20/17 08/20/17 18:59 06:59 18:59 Intake Total 1320 240 370 Output Total 2024 1225 375 Balance -705 -985 -5 Weight 136.6 kg Intake: IV 370 240 80 Sodium Chloride 0.9% 1, 370 240 80 000 ml @ 20 mls/hr IV . Q24H [facility] Rx#:[id number] Intake, IV Titration 150 50 Amount Magnesium Sulfate-D5w Pmx 100 1 gm In Dextrose/Water 1 100ml.bag @ 50 mls/hr IVPB Q2H [facility] Rx#: [id number] Piperacillin-Tazobactam 3 50 50 .375 gm In Dextrose/Water 1 50ml.bag @ 12.5 mls/hr IVPB Q8HR [facility] Rx#: [id number] Oral 800 240 Output: Urine 2024 1225 375 Other: Voiding Method Indwelling Catheter Indwelling Catheter Indwelling Catheter # Bowel Movements 1 On examination, had just completed his bronchoscopy is arousable and tries to follow commands. A chin exam no JVP neck is supple no facial asymmetry Lungs are clear to auscultation and there is good air entry on the right side. No crackles no wheezing was heard. Heart sounds are unremarkable he is in atrial fibrillation with controlled ventricular response no murmur rub gallop Abdomen soft nontender nondistended Extremity exam trace edema Neurologically arousable moves all his extremities. - Labs CBC & Chem 7: 08/20/17 04:11 08/20/17 04:08 Labs: Abnormal Lab Results - Last 24 Hours (Table) 08/18/17 08/19/17 08/19/17 Range/Units 04:20 12:07 17:30 WBC (3.8-10.6) k/uL RBC (4.30-5.90) m/uL Hgb (13.0-17.5) gm/dL Hct (39.0-53.0) % MCHC (31.0-37.0) g/dL RDW (11.5-15.5) % Plt Count (150-450) k/uL Neutrophils # (1.3-7.7) k/uL Sodium (137-145) mmol/L Chloride (98-107) mmol/L Carbon Dioxide (22-30) mmol/L BUN (9-20) mg/dL Creatinine (0.66-1.25) mg/dL Glucose (74-99) mg/dL POC Glucose (mg/dL) 209 H 192 H (75-99) mg/dL Iron 29 L (65-175) ug/dL TIBC 171 L (228-460) ug/dL Ferritin 533.4 H (22.0-322.0) ng/mL AST (17-59) U/L Albumin (3.5-5.0) g/dL 08/19/17 08/20/17 08/20/17 Range/Units 21:46 04:08 04:11 WBC 19.1 H (3.8-10.6) k/uL RBC 3.94 L (4.30-5.90) m/uL Hgb 10.2 L (13.0-17.5) gm/dL Hct 34.6 L (39.0-53.0) % MCHC 29.5 L (31.0-37.0) g/dL RDW 17.8 H (11.5-15.5) % Plt Count 485 H (150-450) k/uL Neutrophils # 16.5 H (1.3-7.7) k/uL Sodium 135 L (137-145) mmol/L Chloride 95 L (98-107) mmol/L Carbon Dioxide 32 H (22-30) mmol/L BUN 43 H (9-20) mg/dL Creatinine 1.70 H (0.66-1.25) mg/dL Glucose 151 H (74-99) mg/dL POC Glucose (mg/dL) 156 H (75-99) mg/dL Iron (65-175) ug/dL TIBC (228-460) ug/dL Ferritin (22.0-322.0) ng/mL AST 15 L (17-59) U/L Albumin 2.5 L (3.5-5.0) g/dL 08/20/17 Range/Units 07:26 WBC (3.8-10.6) k/uL RBC (4.30-5.90) m/uL Hgb (13.0-17.5) gm/dL Hct (39.0-53.0) % MCHC (31.0-37.0) g/dL RDW (11.5-15.5) % Plt Count (150-450) k/uL Neutrophils # (1.3-7.7) k/uL Sodium (137-145) mmol/L Chloride (98-107) mmol/L Carbon Dioxide (22-30) mmol/L BUN (9-20) mg/dL Creatinine (0.66-1.25) mg/dL Glucose (74-99) mg/dL POC Glucose (mg/dL) 156 H (75-99) mg/dL Iron (65-175) ug/dL TIBC (228-460) ug/dL Ferritin (22.0-322.0) ng/mL AST (17-59) U/L Albumin (3.5-5.0) g/dL Assessment and Plan Plan: 1. Chronic kidney disease stage III secondary to nonsteroidal use, as well as exposure to cis-oglala [place]oux in the past for lung cancer. Baseline creatinine is about 1.4 but more recently supposedly is in the 1.8 range. 2. Acute kidney injury secondary to prerenal secondary to pneumonia and collapse of lung secondary to mucous plugging and status post third bronchoscopy in about 3 days and hypotension. Started on IV fluids 08/17/2017 with improvement in creatinine. There is some concern because of low blood pressure in the 110 range. 3. Known small cell lung cancer with remote lobectomy. 4. Mild to moderate edema. Improving 5. Atrial fibrillation, controlled ventricular response 6. Mild hyponatremia sodium is improved from 134 to 135 today, which is stable. etiology is acute kidney injury and chronic kidney disease. Recommendation. 1. Discontinue Zaroxolyn 2. Continue to hold Lasix for 1 more day. 3. Watch hyponatremia 4. Encourage oral intake
[2017-08-20] MEDS: LORazepam 2 MG/ML INJ IV PRN (11:13)
--- NOTE | 2017-08-20 12:00 | P.PN ---
Subjective Principal diagnosis: Acute fall and possible right hip fracture, right lung collapse requiring bronchoscopy and BAL 3 for mucous plug suctioning from right mainstem bronchus. This is a 67-year-old white male with history of multiple medical problems including COPD, chronic congestive heart failure, morbid obesity, previous lobectomy for non-small cell lung cancer over 5 years ago, chronic atrial fibrillation, chronic renal failure, patient was admitted this time on 2016 because he fell as he was drying himself off and put one leg on the bathtub to dry off then switched legs in the process he fell. Patient fell on the left side, however apparently there was some hyperextension of the right hip , came in with severe pain involving the right hip. Workup so far included CT of the hip, x-rays of the hip, are negative for possible fracture. Bone scan is scheduled to confirm that there is no evidence of right hip fracture. Considering his other medical problems including COPD and history of lung cancer as well as his chronic congestive heart failure, and chronic right lower lobe changes related to previous surgery, I was asked to see him on consultation. Presently the patient has minimal dyspnea on exertion, no cough no wheezing no shortness of breath at rest, no chest pain. Patient is usually maintained on a 10 mg of prednisone is also on updraft treatments for COPD. And the patient is on relatively high dose of diuretics for chronic congestive heart failure. His clinical pulmonary and cardiac status seemed to be relatively stable at this point. The patient's main complaint at this point is mostly right hip pain. And difficulty to bear any weight on the right hip. Patient was seen by orthopedics and workup is in progress, awaiting to have a bone scan. But so far the workup is negative for fracture. Patient was reevaluated today on 08/16/2017, apparently the patient developed a significant desaturation early this morning, even when he was placed on a nonrebreather mask, his O2 saturation was marginal. The A TEAM was called to see the patient, and a chest x-ray done showed evidence of almost near complete collapse of the right lung. Obviously this is consistent with mucous plugging involving the right mainstem bronchus. Patient had a previous right lower lobectomy, but when I came in and reviewed the chest x-ray, the findings are clearly consistent with a right mainstem mucous plug. Patient was transferred to the ICU, placed on BiPAP, and I have arranged for immediate stat bronchoscopy at bedside in the ICU. Bronchoscopy was performed, please refer to the full operative report of the bronchoscopy. Indeed there was significant mucus plugging involving the right mainstem bronchus and this was cleared by suctioning. Discussed all the findings with the patient and his family at bedside after the procedure. Patient felt better and after the procedure I placed him back on BiPAP to keep the right lung expanded. May even require another bronchoscopy tomorrow if he collapses again. In the meantime I started the patient on antibiotics in the form of Zosyn, cultures from the fluid obtained from the right lung and the right mainstem bronchus are pending. ABG earlier today showed a pO2 of 47 pCO2 of 46 pH of 7.46. WBC count was noted to be 23.7 hemoglobin is 11. Patient did receive Lasix earlier however his desaturation was mostly pulmonary in nature related to lung collapse rather than cardiac in nature. Reevaluated today on 08/17/2017, patient is now on nasal cannula, saturating nicely, relatively asymptomatic from the pulmonary perspective, however his chest x-ray continues to show some air space disease involving the right midlung area. Patient is already on antibiotics for presumptive pneumonia. Continues to have pain in the right hip, orthopedics is following. So far workup for fracture has been negative, and it was felt that this is most likely a hyperextension type of injury. WBC count today is 29.7 hemoglobin is 9.9 his electrolytes are normal BUN is 47 creatinine 2.40. Magnesium was low and it is being corrected as per protocol. Reevaluated today on 08/18/2017, patient is developing worsening shortness of breath and relative hypoxemia chest x-ray showed 3 collapse of the right lung, hence I proceeded with bronchoscopy and BAL again and I was able to retrieve another large mucous plug from the right mainstem bronchus. Please refer to the full operative report on the bronchoscopy. After the procedure, patient was placed back on BiPAP. I plan to give him Mucomyst in addition to his albuterol updraft treatments to help loosen up secretions, and hopefully not develop mucus plugging again. WBC count is 21.9 hemoglobin is 9.1 basic metabolic profile is normal BUN is 56 creatinine is 2.44. Chest x-ray as noted above. Reevaluated today on 08/19/2017, patient has been doing well since his last bronchoscopy yesterday. Early this morning he is on nasal cannula, chest x-ray is showing improved aeration of the right lung, there may be some component of underlying pneumonia involving the right lung, and possibly mild congestive heart failure changes. However the patient remains on high dose of Lasix. And his renal functioning seems to be actually improved. WBC count is elevated at 21.9 hemoglobin is 10. BUN is 49 creatinine is 1.90. We'll try to give the patient an extra dose of Lasix a day. In the meantime we'll continue antibiotics and continue bronchodilators, chest physical therapy, and BiPAP intermittently. Patient was reevaluated today on 08/20/2017, developed worsening desaturations, worsening chest x-ray this morning, and he is collapsing his right lung again with complete white out of the right lung. Recommended emergency bronchoscopy which I did and I was able to relieve the up suction from the right mainstem bronchus, mucous plugs were removed again, his last culture from the BAL showed Pseudomonas, hence I kept the patient on Zosyn and I added Fortaz today. Please refer to full operative report on the bronchoscopy, and this is the third bronchoscopy in the last 5 days since admission. Labs were reviewed WBC count is 19.1 hemoglobin is 10.2) normal BUN is 43 creatinine is 1.70. Objective - Vital Signs Vital signs: Vital Signs Temp 98 F 08/20/17 08:00 Pulse 99 08/20/17 11:44 Resp 17 08/20/17 11:00 BP 114/75 08/20/17 11:00 Pulse Ox 100 08/20/17 11:00 Intake & Output 08/19/17 08/20/17 08/20/17 18:59 06:59 18:59 Intake Total 1320 240 440 Output Total 2024 1225 375 Balance -705 -985 65 Weight 136.6 kg Intake: IV 370 240 100 Sodium Chloride 0.9% 1, 370 240 100 000 ml @ 20 mls/hr IV . Q24H [facility] Rx#:[id number] Intake, IV Titration 150 100 Amount Magnesium Sulfate-D5w Pmx 100 1 gm In Dextrose/Water 1 100ml.bag @ 50 mls/hr IVPB Q2H [facility] Rx#: [id number] Piperacillin-Tazobactam 3 50 50 .375 gm In Dextrose/Water 1 50ml.bag @ 12.5 mls/hr IVPB Q8HR [facility] Rx#: [id number] cefTAZidime 1 gm In 50 Sodium Chloride 0.9% 50 ml @ 100 mls/hr IVPB Q12HR [facility] Rx#:[id number] Oral 800 240 Output: Urine 2024 1225 375 Other: Voiding Method Indwelling Catheter Indwelling Catheter Indwelling Catheter # Bowel Movements 1 - Exam Physical Exam: Revealed a 67-year-old white male, obese, nasal cannula in mild respiratory distress HEENT:[Neck is supple.] [No neck masses.] [No thyromegaly.] [No JVD.] Chest: [Symmetrical chest expansion, extremely diminished breath sounds on the right side, left side is clear. Cardiac Exam: Distant S1 and S2, no S3 gallop, no murmur.] Abdomen: [Obese, Soft, nontender, no megaly, no rebound, no guarding, normal bowel sounds.] Extremities: [No clubbing, 2+ bipedal edema, no cyanosis.] Chronic venous stasis changes. Neurological Exam: [No focal neurologic deficit.] Musculoskeletal: Continues to have difficulty in the range of motion of the right hip, pain with any movement of the hip. Otherwise unremarkable. Skin: Chronic venous stasis noted in the lower extremities and 2+ bipedal edema noted. Psychiatric: Normal mental status exam, normal affect, no mood changes. - Labs CBC & Chem 7: 08/20/17 04:11 08/20/17 04:08 Labs: Abnormal Lab Results - Last 24 Hours (Table) 08/18/17 08/19/17 08/19/17 Range/Units 04:20 12:07 17:30 WBC (3.8-10.6) k/uL RBC (4.30-5.90) m/uL Hgb (13.0-17.5) gm/dL Hct (39.0-53.0) % MCHC (31.0-37.0) g/dL RDW (11.5-15.5) % Plt Count (150-450) k/uL Neutrophils # (1.3-7.7) k/uL Sodium (137-145) mmol/L Chloride (98-107) mmol/L Carbon Dioxide (22-30) mmol/L BUN (9-20) mg/dL Creatinine (0.66-1.25) mg/dL Glucose (74-99) mg/dL POC Glucose (mg/dL) 209 H 192 H (75-99) mg/dL Iron 29 L (65-175) ug/dL TIBC 171 L (228-460) ug/dL Ferritin 533.4 H (22.0-322.0) ng/mL AST (17-59) U/L Albumin (3.5-5.0) g/dL 08/19/17 08/20/17 08/20/17 Range/Units 21:46 04:08 04:11 WBC 19.1 H (3.8-10.6) k/uL RBC 3.94 L (4.30-5.90) m/uL Hgb 10.2 L (13.0-17.5) gm/dL Hct 34.6 L (39.0-53.0) % MCHC 29.5 L (31.0-37.0) g/dL RDW 17.8 H (11.5-15.5) % Plt Count 485 H (150-450) k/uL Neutrophils # 16.5 H (1.3-7.7) k/uL Sodium 135 L (137-145) mmol/L Chloride 95 L (98-107) mmol/L Carbon Dioxide 32 H (22-30) mmol/L BUN 43 H (9-20) mg/dL Creatinine 1.70 H (0.66-1.25) mg/dL Glucose 151 H (74-99) mg/dL POC Glucose (mg/dL) 156 H (75-99) mg/dL Iron (65-175) ug/dL TIBC (228-460) ug/dL Ferritin (22.0-322.0) ng/mL AST 15 L (17-59) U/L Albumin 2.5 L (3.5-5.0) g/dL 08/20/17 Range/Units 07:26 WBC (3.8-10.6) k/uL RBC (4.30-5.90) m/uL Hgb (13.0-17.5) gm/dL Hct (39.0-53.0) % MCHC (31.0-37.0) g/dL RDW (11.5-15.5) % Plt Count (150-450) k/uL Neutrophils # (1.3-7.7) k/uL Sodium (137-145) mmol/L Chloride (98-107) mmol/L Carbon Dioxide (22-30) mmol/L BUN (9-20) mg/dL Creatinine (0.66-1.25) mg/dL Glucose (74-99) mg/dL POC Glucose (mg/dL) 156 H (75-99) mg/dL Iron (65-175) ug/dL TIBC (228-460) ug/dL Ferritin (22.0-322.0) ng/mL AST (17-59) U/L Albumin (3.5-5.0) g/dL Assessment and Plan Plan: Impression: 1 acute fall, possible right hip fracture, workup is in progress. It is felt that this is most likely a hyperextension type of injury, no fracture could be seen based on the workup done so far. Patient is being followed by orthopedics 2 recurrent hypoxic respiratory failure secondary to recurrent right lung collapse secondary to mucus plugging noted in the right mainstem bronchus., Status post bronchoscopy and suctioning of mucous plugs in the right mainstem bronchus. This was done on 08/16/2017. This was done on 08/18/2017. And it was done today on 08/20/2017. Cultures positive for Pseudomonas, hence the patient will remain on Zosyn and I added Fortaz today. 2 history of multiple comorbidities including severe COPD, bronchogenic carcinoma and previous lobectomy, chronic atrial fibrillation, chronic systolic congestive heart failure, type 2 diabetes, history of GERD without esophagitis, history of chronic renal failure, history of right lower lobectomy, history of hearing impairment, history of hidradenitis, and history of morbid obesity. Recommendation: Keep patient in the intensive care unit, continue antibiotics, continue Mucomyst in his updrafts, broaden the spectrum of antibiotics, continue chest physiotherapy, continue incentive spirometry, use BiPAP as needed , prognosis remains guarded, will continue to follow closely. Patient will need daily chest x-rays, may even require more bronchoscopies if he continues to collapse his right lung secondary to mucous plugs. We'll continue to follow. Time with Patient: Less than 30
[2017-08-20 12:19] LABS: Glucose,Whole Blood 178 mg/dL (75-99)
--- NOTE | 2017-08-20 12:25 | PCN ---
PROCEDURE NOTE OPERATIVE REPORT: Emergency bronchoscopy, suctioning of the mucus plug from the right mainstem bronchus to relieve right lung complete collapse. PREOPERATIVE DIAGNOSIS: Right lung collapse and recurrent mucus plugging of the right mainstem bronchus with mucus plugs. POSTOPERATIVE DIAGNOSIS: Right lung collapse and recurrent mucus plugging of the right mainstem bronchus with mucus plugs. ANESTHESIA: IV conscious sedation. PROCEDURE: The patient was placed in a supine position, IV conscious sedation was applied, a nasogastric tube was also inserted earlier to suction the stomach. After IV conscious sedation, the right naris was anesthetized, and the bronchoscope was advanced through the right naris down to the vocal cords. In the meantime, we monitored his O2 saturation continuously. Blood pressure was intermittently monitored and cardiac rhythm was monitored. Thorough examination was done including the trachea was relatively unremarkable. The left side was completely normal. However, as we visualized the right mainstem bronchus, it was again noted to be completely occluded with mucus plugs. I was able to suction the mucous plugs by going back and forth and almost removing the mucous plugs piecemeal. All were suctioned, the right mainstem was completely cleared, Mucomyst was applied with saline, and I was able to lavage the right upper lobe, and lavage the right mainstem bronchus, I was able to visualize the stump from the right lower lobectomy and a small opening into the right middle lobe. No immediate complications. After the procedure, patient was placed on BiPAP. He was placed on Zosyn as well as Fortaz for recent diagnosis of Pseudomonas in the bronchoalveolar lavage. MMODL / IJN: [id number] /
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
[2017-08-20 17:08] LABS: Glucose,Whole Blood 266 mg/dL (75-99)
[2017-08-20] MEDS: SODIUM CHLORIDE 0.9% 1,000 ML IV SCH (18:26)
[2017-08-20] MEDS: MULTIVITAMINS, THERA 1 EACH TAB PO SCH (20:42)
[2017-08-20 20:58] LABS: Glucose,Whole Blood 211 mg/dL (75-99)
[2017-08-21] MEDS: HYDROcodone/APAP 7.5-325MG 1 EACH TAB PO PRN ×3 (00:19→15:37)
[2017-08-21] MEDS: PIPERACILLIN-TAZOBACTAM 3.375 GM in DEXTROSE/WATER 1 50ML.BAG IVPB SCH ×3 (00:49→16:55)
[2017-08-21 04:46] LABS: Anisocytosis Slight; CH 24.3; HCT 33.4 % (39.0-53.0); HDW 2.62; HGB 9.9 gm/dL (13.0-17.5); Hypochromasia Marked; MCH 25.6 pg (25.0-35.0); MCHC 29.5 g/dL (31.0-37.0); Mean Platelet Volume 7.9; RBC 3.84 m/uL (4.30-5.90); RDW 16.7 % (11.5-15.5); WBC 21.2 k/uL (3.8-10.6)
[2017-08-21 06:07] LABS: Calcium 8.6 mg/dL (8.4-10.2); Magnesium 1.8 mg/dL (1.6-2.3); Potassium 4.7 mmol/L (3.5-5.1)
[2017-08-21] MEDS: MAGNESIUM SULFATE-D5W PMX 1 GM in DEXTROSE/WATER 1 100ML.BAG IVPB SCH ×2 (07:23→10:10)
[2017-08-21 07:26] LABS: Glucose,Whole Blood 151 mg/dL (75-99)
[2017-08-21] MEDS: ACETYLCYSTEINE 800 MG/4 ML VIAL INHALATION SCH ×4 (08:36→19:43)
[2017-08-21] MEDS: ALBUTEROL NEBULIZED 2.5 MG/3 ML INHALATION SCH ×4 (08:36→19:43)
--- NOTE | 2017-08-21 09:51 | XR ---
EXAMINATION TYPE: XR chest 1V DATE OF EXAM: 08/21/2017 COMPARISON: 08/20/2017 HISTORY: Respiratory failure TECHNIQUE: Single frontal view of the chest is obtained. FINDINGS: There is near complete opacification of the right hemithorax with the degree of volume los s. The heart remains enlarged and atherosclerotic change of the aorta. Hyperinflation of the left cuong g noted. Pleural thickening noted. IMPRESSION: 1. Persistent near complete opacification of the right hemithorax which is slightly improved relative to the previous exam.
[2017-08-21] MEDS: NYSTATIN 100,000 UNIT/ML SUSP 500,000 UNIT/5 ML CUP PO SCH ×4 (10:10→21:55)
[2017-08-21] MEDS: CITALOPRAM HYDROBROMIDE 20 MG TAB PO SCH (10:11)
[2017-08-21] MEDS: DILTIAZEM CD 180 MG CAP.ER.24H PO SCH (10:11)
[2017-08-21] MEDS: LINAGLIPTIN 5 MG TABLET PO SCH (10:11)
[2017-08-21] MEDS: guaiFENesin 600 MG TABLET.ER PO SCH ×2 (10:11→21:55)
[2017-08-21] MEDS: ALLOPURINOL 100 MG TAB PO SCH (10:12)
[2017-08-21] MEDS: PANTOPRAZOLE 40 MG TABLET PO SCH (10:12)
[2017-08-21] MEDS: CALCIUM CARB-VIT D 500MG-200UN 1 EACH TAB PO SCH ×2 (10:12→17:23)
[2017-08-21] MEDS: METOPROLOL SUCCINATE (ER) 25 MG TAB.ER.24H PO SCH ×2 (10:12→21:54)
[2017-08-21] MEDS: predniSONE 10 MG TAB PO SCH (10:13)
[2017-08-21] MEDS: METOLAZONE 5 MG TAB PO SCH (10:13)
[2017-08-21] MEDS: BACITRACIN 500 UNIT/GM OINT 28.4 GM TUBE TOPICAL SCH (10:14)
[2017-08-21] MEDS: BISMUTH SUBSALICYLATE 4,192 MG/240 ML BOTTLE PO PRN ×3 (10:15→20:19)
[2017-08-21] MEDS: INSULIN LISPRO (humaLOG) 300 UNIT/3 ML VIAL SQ SCH ×4 (10:17→21:55)
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
[2017-08-21] MEDS: ACETAMINOPHEN IV (For NPO) 1,000 MG in EMPTY BAG 1 BAG IVPB PRN ×2 (11:18→22:03)
[2017-08-21 12:39] LABS: Glucose,Whole Blood 207 mg/dL (75-99)
--- NOTE | 2017-08-21 15:35 | PN ---
PROGRESS NOTE Patient is seen for followup for acute kidney injury. His renal function has improved with serum creatinine now down to 1.5. It was as high as 2.4 mg/dL. Currently, patient is maintained on Zaroxolyn. He is not on any IV fluids. He has had issues with recurring mucus plugs and bronchoscopies. PHYSICAL EXAMINATION: On examination today, blood pressure is 112/69, heart rate 80 per minute. Patient is afebrile. Examination of the heart S1, S2. Examination lungs decreased breath sounds at bases. No crackles or wheezing is heard. Abdomen is soft, nontender. Examination lower extremity shows no significant edema. Skin exam shows patient moving all 4 extremities. LABS: Sodium 135, potassium 4.7, BUN 42, serum creatinine 1.5, hemoglobin 9.9 g/dL. ASSESSMENT: 1. Acute kidney injury prerenal currently improved. 2. Chronic kidney disease, stage 3 secondary to history of use of NSAIDs and cisplatin. Baseline about 1.4 to 1.8 mg/dL. 3. Known history of small cell lung cancer with previous history of lobectomy. 4. Atrial fibrillation with controlled ventricular response. 5. Mild hyponatremia, serum sodium staying at about 135 mg/L. The patient is maintained on Zaroxolyn. There was concern about discontinuation of the oxygen, but it remains on his med list and we can continue. PLAN: No changes. Repeat labs in a.m. Monitor electrolytes periodically. MMODL / DEVONTEN: [id number] /
[2017-08-21 17:04] LABS: Glucose,Whole Blood 236 mg/dL (75-99)
--- NOTE | 2017-08-21 20:40 | P.PN ---
Subjective Principal diagnosis: Fall with left hip pain 67-year-old male who is well-known to the infectious disease service with as many hospitalizations as well as his hidradenitis. He's had a couple hospitalizations in the last several months that included atrial fibrillation with nonsustained V. tach. He has underlying cardiac murmur. He's had vertigo and acute renal failure. He's had some time at the extended care facility in the past year but is now home Doing relatively well under the care of his . He was hospitalized earlier this year with a bout of congestive heart failure and is in relatively well since that time. The. The patient was bathing and suffered a fall and now presents with severe right sided hip pain. He's been evaluated by orthopedics. The hidradenitis is now being treated with Humira injections at home. This is on Fridays. This has been occurring for the last couple of months now. There is been decreasing amount of drainage. His skin is becoming less erythematous and inflamed. The amount of drainage is improving The family is pleased that there is showing some improvement given the many year history of lack of improvement. However was still must apply large amounts of dressings on a daily basis to contain his drainage. The patient never became progressively more short of breath. Was transferred to intensive care unit. He's been seen by pulmonary and underwent bronchoscopy for removal of large mucous plugging to the right lung. Patient remains on BiPAP but is more stable at this time. Antimicrobial therapy was initiated with concerns to pneumonia with this pulmonary process. Cultures have revealed Moraxella and pseudomonas aeruginosa He has slightly improved pain today. Pulmonary status again was giving him difficulties, and again had bronchoscopy for a third time to remove more mucous plugs. Is doing well post procedure. Objective - Vital Signs Vital signs: Vital Signs Temp 99.4 F 08/21/17 20:00 Pulse 93 08/21/17 20:05 Resp 24 08/21/17 20:00 BP 105/73 08/21/17 20:00 Pulse Ox 100 08/21/17 20:00 Intake & Output 08/21/17 08/21/17 08/22/17 06:59 18:59 06:59 Intake Total 220 1070 90 Output Total 1135 1400 225 Balance -915 -330 -135 Weight 133.3 kg Intake: IV 220 240 90 Piperacillin-Tazobactam 3 50 .375 gm In Dextrose/Water 1 50ml.bag @ 12.5 mls/hr IVPB Q8HR [facility] Rx#: [id number] Sodium Chloride 0.9% 1, 220 240 40 000 ml @ 20 mls/hr IV . Q24H [facility] Rx#:[id number] Intake, IV Titration 250 Amount ACETAMINOPHEN IV (For NPO 100 ) 1,000 mg In Empty Bag 1 bag @ 400 mls/hr IVPB Q6HR [facility] Rx#:[id number] Magnesium Sulfate-D5w Pmx 100 1 gm In Dextrose/Water 1 100ml.bag @ 100 mls/hr IVPB Q1H [facility] Rx#: [id number] Piperacillin-Tazobactam 3 50 .375 gm In Dextrose/Water 1 50ml.bag @ 12.5 mls/hr IVPB Q8HR [facility] Rx#: [id number] Oral 580 Output: Urine 1135 1400 225 Other: Voiding Method Indwelling Catheter Indwelling Catheter - Exam Pleasant 67-year-old gentleman who suffers from obesity who was miserable at this time. BiPAP though is being tolerated. Hip pain is better treated. He is less short of breath. HEENT: Anicteric conjunctiva are pink and moist nasal mucosa grossly intact without significant lesions, there is no thrush. Neck: The neck is supple without significant lymphadenopathy or thyromegaly. Lungs: There is symmetrical air entry with evidence of some crackles at the still at the right base Some expiratory wheezes are heard. Heart: Irregular with an audible S1 and S2 no S3 soft S4 There is no significant murmur click or rub, PMI was nondisplaced. Abdomen: Obese, Positive bowel sounds soft and nontender without palpable masses or organomegaly. There was no guarding or rebound. Extremities: The upper extremities have excellent pulses they are symmetric, no significant petechiae or telangiectasia. No splinter hemorrhages were noted. The left lower extremity is without significant tenderness at this time. Right lower extremity has severe pain upon manipulation. Any attempt to internally or externally rotate the limb causes him to have severe pain. There is at the chronic drainage without change from last evaluation. He has extensive areas of drainage on the buttocks bilaterally and inner thighs. Neuro: Awake alert oriented to person place and time. There are no acute new gross focal sensory motor deficits. - Labs CBC & Chem 7: 08/21/17 04:30 08/21/17 05:32 Labs: Abnormal Lab Results - Last 24 Hours (Table) 08/20/17 08/21/17 08/21/17 Range/Units 20:44 04:30 05:32 WBC 21.2 H (3.8-10.6) k/uL RBC 3.84 L (4.30-5.90) m/uL Hgb 9.9 L (13.0-17.5) gm/dL Hct 33.4 L (39.0-53.0) % MCHC 29.5 L (31.0-37.0) g/dL RDW 16.7 H (11.5-15.5) % Plt Count 534 H (150-450) k/uL Sodium 135 L (137-145) mmol/L Chloride 97 L (98-107) mmol/L BUN 42 H (9-20) mg/dL Creatinine 1.50 H (0.66-1.25) mg/dL Glucose 155 H (74-99) mg/dL POC Glucose (mg/dL) 211 H (75-99) mg/dL 08/21/17 08/21/17 08/21/17 Range/Units 07:24 12:37 17:02 WBC (3.8-10.6) k/uL RBC (4.30-5.90) m/uL Hgb (13.0-17.5) gm/dL Hct (39.0-53.0) % MCHC (31.0-37.0) g/dL RDW (11.5-15.5) % Plt Count (150-450) k/uL Sodium (137-145) mmol/L Chloride (98-107) mmol/L BUN (9-20) mg/dL Creatinine (0.66-1.25) mg/dL Glucose (74-99) mg/dL POC Glucose (mg/dL) 151 H 207 H 236 H (75-99) mg/dL Laboratory Results WBC 21.2 k/uL (3.8-10.6) H 08/21/17 04:30 RBC 3.84 m/uL (4.30-5.90) L 08/21/17 04:30 Hgb 9.9 gm/dL (13.0-17.5) L 08/21/17 04:30 Hct 33.4 % (39.0-53.0) L 08/21/17 04:30 MCV 87.0 fL (80.0-100.0) 08/21/17 04:30 MCH 25.6 pg (25.0-35.0) 08/21/17 04:30 MCHC 29.5 g/dL (31.0-37.0) L 08/21/17 04:30 RDW 16.7 % (11.5-15.5) H 08/21/17 04:30 Plt Count 534 k/uL (150-450) H 08/21/17 04:30 Neutrophils % 86 % 08/20/17 04:11 Lymphocytes % 7 % 08/20/17 04:11 Monocytes % 5 % 08/20/17 04:11 Eosinophils % 2 % 08/20/17 04:11 Basophils % 0 % 08/20/17 04:11 Neutrophils # 16.5 k/uL (1.3-7.7) H 08/20/17 04:11 Lymphocytes # 1.3 k/uL (1.0-4.8) 08/20/17 04:11 Monocytes # 0.9 k/uL (0-1.0) 08/20/17 04:11 Eosinophils # 0.3 k/uL (0-0.7) 08/20/17 04:11 Basophils # 0.1 k/uL (0-0.2) 08/20/17 04:11 Hypochromasia Marked 08/21/17 04:30 Anisocytosis Slight 08/21/17 04:30 Sample Site lbrac 08/16/17 08:01 ABG pH 7.46 (7.35-7.45) H 08/16/17 08:01 ABG pCO2 46 mmHg (35-45) H 08/16/17 08:01 ABG pO2 47 mmHg (83-108) L 08/16/17 08:01 ABG HCO3 32 mmol/L (21-25) H 08/16/17 08:01 ABG Total CO2 34 mmol/L (19-24) H 08/16/17 08:01 ABG O2 Saturation 85.0 % (94-97) L 08/16/17 08:01 ABG Base Excess 8.0 mmol/L 08/16/17 08:01 FiO2 60 % 08/16/17 08:01 Sodium 135 mmol/L (137-145) L 08/21/17 05:32 Potassium 4.7 mmol/L (3.5-5.1) 08/21/17 05:32 Chloride 97 mmol/L (98-107) L 08/21/17 05:32 Carbon Dioxide 30 mmol/L (22-30) 08/21/17 05:32 Anion Gap 8 mmol/L 08/21/17 05:32 BUN 42 mg/dL (9-20) H 08/21/17 05:32 Creatinine 1.50 mg/dL (0.66-1.25) H 08/21/17 05:32 Est GFR (MDRD) Af Amer 56 (>60 ml/min/1.73 sqM) 08/21/17 05:32 Est GFR (MDRD) Non-Af 46 (>60 ml/min/1.73 sqM) 08/21/17 05:32 Glucose 155 mg/dL (74-99) H 08/21/17 05:32 POC Glucose (mg/dL) 236 mg/dL (75-99) H 08/21/17 17:02 POC Glu Animal Rehabilitator ID Samantha Cabrera 08/21/17 17:[address] Glu mg/dL 143 mg/dL 08/16/17 07:03 Hemoglobin A1c 6.6 % (4.2-6.1) H 08/16/17 07:03 Calcium 8.6 mg/dL (8.4-10.2) 08/21/17 05:32 Phosphorus 5.3 mg/dL (2.5-4.5) H 08/18/17 04:20 Magnesium 1.8 mg/dL (1.6-2.3) 08/21/17 05:32 Iron 29 ug/dL (65-175) L 08/18/17 04:20 TIBC 171 ug/dL (228-460) L 08/18/17 04:20 Iron Saturation 16.96 (15.00-50.00) 08/18/17 04:20 Ferritin 533.4 ng/mL (22.0-322.0) H 08/18/17 04:20 Total Bilirubin 0.3 mg/dL (0.2-1.3) 08/20/17 04:08 AST 15 U/L (17-59) L 08/20/17 04:08 ALT 27 U/L (21-72) 08/20/17 04:08 Alkaline Phosphatase 103 U/L (38-126) 08/20/17 04:08 Total Protein 6.8 g/dL (6.3-8.2) 08/20/17 04:08 Albumin 2.5 g/dL (3.5-5.0) L 08/20/17 04:08 Cortisol 9 ug/dL 08/17/17 04:38 Urine Color Yellow 08/14/17 23:45 Urine Appearance Clear (Clear) 08/14/17 23:45 Urine pH 5.5 (5.0-8.0) 08/14/17 23:45 Ur Specific B[place]orn 1.011 (1.001-1.035) 08/14/17 23:45 Urine Protein Negative (Negative) 08/14/17 23:45 Urine Glucose (UA) Negative (Negative) 08/14/17 23:45 Urine Ketones Negative (Negative) 08/14/17 23:45 Urine Blood Trace (Negative) H 08/14/17 23:45 Urine Nitrite Negative (Negative) 08/14/17 23:45 Urine Bilirubin Negative (Negative) 08/14/17 23:45 Urine Urobilinogen <2.0 mg/dL (<2.0) 08/14/17 23:45 Ur Leukocyte Esterase Negative (Negative) 08/14/17 23:45 Urine RBC 9 /hpf (0-5) H 08/14/17 23:45 Urine WBC 1 /hpf (0-5) 08/14/17 23:45 Hyaline Casts 3 /lpf (0-2) H 08/14/17 23:45 Urine Mucus Rare /hpf (None) H 08/14/17 23:45 Assessment and Plan (1) Fall Status: Acute (2) Acute right hip pain Status: Acute (3) Rib pain on left side Status: Acute (4) Hidradenitis suppurativa Narrative/Plan: 67-year-old male has multiple medical troubles including his history of squamous cell lung cancer fifth being monitored by oncology. He is followed in the infectious disease office for the treatment of his hidradenitis which is being treated currently with Humira. There has been some improvement of his significant disease state but not resolution. The last office visit the and I agreed that we would continue treatment at least until the next quarter. He tolerated this very well. He has had no worsening of his anemia or renal failure . While in hospital his Humira is on hold. Continues to have significant pain to the right hip because of the fall. Orthopedics is following. Orthopedics apparently does not believe that there is a fracture and just has a hyperextension injury. And they will follow as needed. Is noted he is on BiPAP for his respiratory failure from his mucous plugging. For antimicrobial therapy with the isolation of the Moraxella and Pseudomonas, ceftazidime was initiated at 2 g IV piggyback every 8 hours He is having more comfortable at this time. As has noted dressings are not needed just have him on a drainage had and allow the drainage from his large draining sinus tracts to be absorbed into the pads. If he needs to be moved about, a brief maybe applied. Severe right hip pain is slightly improved. We'll give some IV fluids at nighttime while he is nothing by mouth to help with his viscosity of his pulmonary secretions Status: Acute
[2017-08-21 20:58] LABS: Glucose,Whole Blood 219 mg/dL (75-99)
[2017-08-21 21:54] LABS: Glucose,Whole Blood 187 mg/dL (75-99)
[2017-08-21] MEDS: MULTIVITAMINS, THERA 1 EACH TAB PO SCH (21:55)
[2017-08-21] MEDS: SODIUM CHLORIDE 0.9% 1,000 ML IV SCH (21:56)
[2017-08-21] MEDS: LORazepam 2 MG/ML INJ IV PRN (23:55)
[2017-08-22] MEDS: PIPERACILLIN-TAZOBACTAM 3.375 GM in DEXTROSE/WATER 1 50ML.BAG IVPB SCH ×4 (00:40→23:41)
[2017-08-22] MEDS: SODIUM CHLORIDE 0.9% 1,000 ML IV SCH ×3 (00:41→23:41)
[2017-08-22 04:31] LABS: Anisocytosis Slight; Basophils # (A) 0.1 k/uL (0-0.2); Basophils % (A) 0 %; CH 24.5; CHCM 28.2; Eosinophils # (A) 0.4 k/uL (0-0.7); Eosinophils % (A) 2 %; HCT 32.9 % (39.0-53.0); HDW 2.39; HGB 9.6 gm/dL (13.0-17.5); Hypochromasia Marked; Luc # (Auto) 0.29; Luc % (Auto) 2; Lymphocytes # (A) 2.1 k/uL (1.0-4.8); Lymphocytes % (A) 12 %; MCH 25.4 pg (25.0-35.0); MCHC 29.1 g/dL (31.0-37.0); MCV 87.3 fL (80.0-100.0); Mean Platelet Volume 7.4; Monocytes # (A) 0.8 k/uL (0-1.0); Monocytes % (A) 4 %; Neutrophils # (A) 14.4 k/uL (1.3-7.7); Neutrophils % (A) 80 %; RBC 3.77 m/uL (4.30-5.90); RDW 16.7 % (11.5-15.5); WBC (Perox) 19.09
[2017-08-22 05:21] LABS: ALT 35 U/L (21-72); AST 37 U/L (17-59); Alkaline Phosphatase 101 U/L (38-126); Anion Gap 7 mmol/L; Blood Urea Nitrogen 39 mg/dL (9-20); Calcium 8.7 mg/dL (8.4-10.2); Carbon Dioxide 31 mmol/L (22-30); Chloride 98 mmol/L (98-107); Glucose 111 mg/dL (74-99); Magnesium 1.9 mg/dL (1.6-2.3); Non-African American GFR(MDRD) 55 (>60 ml/min/1.73 sqM); Phosphorous 4.3 mg/dL (2.5-4.5); Potassium 4.8 mmol/L (3.5-5.1); Sodium 136 mmol/L (137-145); Total Bilirubin 0.3 mg/dL (0.2-1.3); Total Protein 6.6 g/dL (6.3-8.2)
[2017-08-22] MEDS ORDERED: Magnesium Replacement Protocol 1 EACH MISC MISCELLANE PRN (06:38)
[2017-08-22] MEDS: HYDROcodone/APAP 7.5-325MG 1 EACH TAB PO PRN ×3 (06:40→20:31)
[2017-08-22 07:27] LABS: Glucose,Whole Blood 153 mg/dL (75-99)
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
[2017-08-22] MEDS: ACETYLCYSTEINE 800 MG/4 ML VIAL INHALATION SCH ×4 (08:05→19:45)
[2017-08-22] MEDS: ALBUTEROL NEBULIZED 2.5 MG/3 ML INHALATION SCH ×4 (08:05→19:45)
[2017-08-22] MEDS: CALCIUM CARB-VIT D 500MG-200UN 1 EACH TAB PO SCH ×2 (08:06→17:16)
[2017-08-22] MEDS: INSULIN LISPRO (humaLOG) 300 UNIT/3 ML VIAL SQ SCH ×4 (08:06→20:25)
[2017-08-22] MEDS: METOPROLOL SUCCINATE (ER) 25 MG TAB.ER.24H PO SCH ×2 (08:07→19:55)
[2017-08-22] MEDS: NYSTATIN 100,000 UNIT/ML SUSP 500,000 UNIT/5 ML CUP PO SCH ×4 (08:07→21:04)
[2017-08-22] MEDS: CITALOPRAM HYDROBROMIDE 20 MG TAB PO SCH (08:09)
[2017-08-22] MEDS: ALLOPURINOL 100 MG TAB PO SCH (08:09)
[2017-08-22] MEDS: BACITRACIN 500 UNIT/GM OINT 28.4 GM TUBE TOPICAL SCH (08:09)
[2017-08-22] MEDS: LINAGLIPTIN 5 MG TABLET PO SCH (08:09)
[2017-08-22] MEDS: DILTIAZEM CD 180 MG CAP.ER.24H PO SCH (08:09)
[2017-08-22] MEDS: PANTOPRAZOLE 40 MG TABLET PO SCH (08:10)
[2017-08-22] MEDS: predniSONE 10 MG TAB PO SCH (08:10)
[2017-08-22] MEDS: METOLAZONE 5 MG TAB PO SCH (08:10)
[2017-08-22] MEDS: BISMUTH SUBSALICYLATE 4,192 MG/240 ML BOTTLE PO PRN ×2 (08:12→13:04)
--- NOTE | 2017-08-22 08:38 | XR ---
EXAMINATION TYPE: XR chest 1V portable DATE OF EXAM: 08/22/2017 COMPARISON: Prior chest x-ray 08/21/2017 HISTORY: Abnormal chest x-ray TECHNIQUE: Single frontal view of the chest is obtained. FINDINGS: Some improved aeration noted in the right lung as compared to previous exam. Patient is ro tated. Heart is enlarged. No evident pneumothorax. Difficult to exclude pleural effusion. IMPRESSION: Some slight interval improvement in aeration in the right lung.
--- NOTE | 2017-08-22 08:41 | P.PN ---
Subjective Progress note dated 08/21/2017 This is a patient who has been having issues with mucus plugging. He is undergoing bronchoscopy on the and 18 of August and then again on August 20. He is a previous history of right lobectomy for lung cancer. He was in a team on August 16 having been admitted to the hospital on August 14 falling and injuring his right hip and shoulder. Anyway my partner has done bronchoscopy for mucous plugging and right lung collapse. Today's chest x-ray shows some aeration to the apex of the right lung and is certainly better than yesterday's x-ray. The patient's on good antibiotics. The patient getting nasal O2 at 5 L high flow or BiPAP at 12 and 5 and 40%. Only getting about 500- 550 on the incentive spirometer. Also receiving Mucomyst and bronchodilators. Is getting appointment 9 IV at 20 mL an hour. BAL showed evidence of Pseudomonas aeruginosa and the patient was placed on Fortaz. Also on Zosyn. Progress note dated 08/22/2017 This is a 67-year-old male who was admitted a number of days ago. He was in a team on August 16 [place] been admitted to the hospital on August 14. He apparently fell and injured his right shoulder and right hip. Subsequent to that because a mucous plugging and because of previous of lung cancer surgery on the right lung, the patient underwent bronchoscopy on the and August 18 and then again on August 20. Anyway, today's chest x-ray does show improvement. We've been focusing on deep breathing coughing clearing of secretions incentive spirometer breathing treatments and N-acetylcysteine. Anyway he does look better. He does not need to use of BiPAP as frequently as he is using an can rather stay on nasal prongs. Her saturations are excellent. He is on 5 L. His BAL showed evidence of Pseudomonas aeruginosa and he was placed on his Fortaz. Also remains on Zosyn. Objective - Vital Signs Vital signs: Vital Signs Temp 98.6 F 08/22/17 04:00 Pulse 97 08/22/17 08:25 Resp 16 08/22/17 08:00 BP 118/82 08/22/17 08:00 Pulse Ox 100 08/22/17 08:00 Intake & Output 08/21/17 08/22/17 08/22/17 18:59 06:59 18:59 Intake Total 1070 1050 290 Output Total 1400 1560 350 Balance -330 -510 -60 Weight 132.4 kg Intake: IV 240 1050 190 Piperacillin-Tazobactam 3 100 50 .375 gm In Dextrose/Water 1 50ml.bag @ 12.5 mls/hr IVPB Q8HR [facility] Rx#: [id number] Sodium Chloride 0.9% 1, 750 000 ml @ 125 mls/hr IV . Q8H [facility] Rx#:[id number] Sodium Chloride 0.9% 1, 240 100 40 000 ml @ 20 mls/hr IV . Q24H [facility] Rx#:[id number] cefTAZidime 2 gm In 100 100 Sodium Chloride 0.9% 100 ml @ 100 mls/hr IVPB Q8HR [facility] Rx#:[id number] Intake, IV Titration 250 100 Amount ACETAMINOPHEN IV (For NPO 100 ) 1,000 mg In Empty Bag 1 bag @ 400 mls/hr IVPB Q6HR [facility] Rx#:[id number] Magnesium Sulfate-D5w Pmx 100 1 gm In Dextrose/Water 1 100ml.bag @ 100 mls/hr IVPB Q1H [facility] Rx#: [id number] Piperacillin-Tazobactam 3 50 .375 gm In Dextrose/Water 1 50ml.bag @ 12.5 mls/hr IVPB Q8HR [facility] Rx#: [id number] cefTAZidime 2 gm In 100 Sodium Chloride 0.9% 100 ml @ 100 mls/hr IVPB Q8HR [facility] Rx#:[id number] Oral 580 Output: Urine 1400 1560 350 Other: Voiding Method Indwelling Catheter Indwelling Catheter - Exam No acute distress, oriented 3. HEENT examination is grossly unremarkable. Mucous membranes are moist. No oral lesions. Neck supple. Full range of motion. No adenopathy or thyromegaly. Neck veins are flat. Cardiovascular examination reveals regular rhythm rate. S1-S2 normal. No S3- S4 or murmur. Lungs reveal diminished breath sounds on the right. A few scattered rhonchi on the right. Abdomen soft bowel sounds are heard. No masses or tenderness. Extremities reveal no evidence of cyanosis clubbing or edema. Skin is without rash. Neurologic examination is nonfocal. - Labs CBC & Chem 7: 08/22/17 04:11 08/22/17 04:11 Labs: Abnormal Lab Results - Last 24 Hours (Table) 08/21/17 08/21/17 08/21/17 Range/Units 12:37 17:02 20:56 WBC (3.8-10.6) k/uL RBC (4.30-5.90) m/uL Hgb (13.0-17.5) gm/dL Hct (39.0-53.0) % MCHC (31.0-37.0) g/dL RDW (11.5-15.5) % Plt Count (150-450) k/uL Neutrophils # (1.3-7.7) k/uL Sodium (137-145) mmol/L Carbon Dioxide (22-30) mmol/L BUN (9-20) mg/dL Creatinine (0.66-1.25) mg/dL Glucose (74-99) mg/dL POC Glucose (mg/dL) 207 H 236 H 219 H (75-99) mg/dL Albumin (3.5-5.0) g/dL 08/21/17 08/22/17 08/22/17 Range/Units 21:52 04:11 04:11 WBC 18.0 H (3.8-10.6) k/uL RBC 3.77 L (4.30-5.90) m/uL Hgb 9.6 L (13.0-17.5) gm/dL Hct 32.9 L (39.0-53.0) % MCHC 29.1 L (31.0-37.0) g/dL RDW 16.7 H (11.5-15.5) % Plt Count 459 H (150-450) k/uL Neutrophils # 14.4 H (1.3-7.7) k/uL Sodium 136 L (137-145) mmol/L Carbon Dioxide 31 H (22-30) mmol/L BUN 39 H (9-20) mg/dL Creatinine 1.30 H (0.66-1.25) mg/dL Glucose 111 H (74-99) mg/dL POC Glucose (mg/dL) 187 H (75-99) mg/dL Albumin 2.4 L (3.5-5.0) g/dL 08/22/17 Range/Units 07:24 WBC (3.8-10.6) k/uL RBC (4.30-5.90) m/uL Hgb (13.0-17.5) gm/dL Hct (39.0-53.0) % MCHC (31.0-37.0) g/dL RDW (11.5-15.5) % Plt Count (150-450) k/uL Neutrophils # (1.3-7.7) k/uL Sodium (137-145) mmol/L Carbon Dioxide (22-30) mmol/L BUN (9-20) mg/dL Creatinine (0.66-1.25) mg/dL Glucose (74-99) mg/dL POC Glucose (mg/dL) 153 H (75-99) mg/dL Albumin (3.5-5.0) g/dL Assessment and Plan (1) Acute right hip pain Status: Acute (2) Diabetes Status: Acute (3) Fall Status: Acute (4) Acute on chronic systolic heart failure Status: Acute (5) Atrial fibrillation with rapid ventricular response Status: Acute (6) Benign paroxysmal positional vertigo Status: Acute (7) Brainstem stroke Status: Acute (8) Congestive heart failure Status: Acute (9) Diastolic CHF, acute on chronic Status: Acute (10) HTN (hypertension) Status: Acute (11) History of lung cancer Status: Acute (12) Hyperlipemia Status: Acute (13) Non-small cell carcinoma of lung Status: Acute (14) Pneumonia Status: Acute (15) Renal insufficiency Status: Acute (16) V-tach Status: Acute (17) Type 2 diabetes mellitus without complications Status: Chronic Plan: Plan The patient will continue working on incentive spirometry bronchodilators coughing deep breathing and clearing of secretions. The patient's medications are appropriate. We'll continue to follow closely. He may need bronchoscopy in the future. No additional recommendations are made. Antibiotics are appropriate. Plan dated 08/22/2017 The patient continues to show improvement both clinically and radiographically. He continues with incentive spirometer every hour while awake breathing treatments mucolytic's deep breathing coughing and clearing of secretions. I don't believe he needs bronchoscopy at this time. He doesn't need to be on BiPAP 16 hours a day. We'll not alter his fluids based on whether or not he is or is not on BiPAP. We'll continue to follow closely. Time with Patient: Less than 30
[2017-08-22] MEDS: guaiFENesin 600 MG TABLET.ER PO SCH ×2 (08:52→19:55)
[2017-08-22] MEDS: ACETAMINOPHEN IV (For NPO) 1,000 MG in EMPTY BAG 1 BAG IVPB PRN ×3 (09:23→22:03)
[2017-08-22] MEDS: MAGNESIUM SULFATE-D5W PMX 1 GM in DEXTROSE/WATER 1 100ML.BAG IVPB SCH ×2 (09:49→11:32)
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
[2017-08-22 12:12] LABS: Glucose,Whole Blood 142 mg/dL (75-99)
[2017-08-22 17:13] LABS: Glucose,Whole Blood 199 mg/dL (75-99)
[2017-08-22] MEDS: MULTIVITAMINS, THERA 1 EACH TAB PO SCH (19:55)
[2017-08-22 20:12] LABS: Glucose,Whole Blood 190 mg/dL (75-99)
--- NOTE | 2017-08-22 21:48 | P.PN ---
Subjective Principal diagnosis: Fall with left hip pain 67-year-old male who is well-known to the infectious disease service with as many hospitalizations as well as his hidradenitis. He's had a couple hospitalizations in the last several months that included atrial fibrillation with nonsustained V. tach. He has underlying cardiac murmur. He's had vertigo and acute renal failure. He's had some time at the extended care facility in the past year but is now home Doing relatively well under the care of his . He was hospitalized earlier this year with a bout of congestive heart failure and is in relatively well since that time. The. The patient was bathing and suffered a fall and now presents with severe right sided hip pain. He's been evaluated by orthopedics. The hidradenitis is now being treated with Humira injections at home. This is on Fridays. This has been occurring for the last couple of months now. There is been decreasing amount of drainage. His skin is becoming less erythematous and inflamed. The amount of drainage is improving The family is pleased that there is showing some improvement given the many year history of lack of improvement. However was still must apply large amounts of dressings on a daily basis to contain his drainage. The patient never became progressively more short of breath. Was transferred to intensive care unit. He's been seen by pulmonary and underwent bronchoscopy for removal of large mucous plugging to the right lung. Patient remains on BiPAP but is more stable at this time. Antimicrobial therapy was initiated with concerns to pneumonia with this pulmonary process. Cultures have revealed Moraxella and pseudomonas aeruginosa He has slightly improved pain today. Pulmonary status again was giving him difficulties, and again had bronchoscopy for a third time to remove more mucous plugs. Is now doing better. No need for any further bronchoscopy has been noted. Breathing status is improved. Stable to move to stepdown. Objective - Vital Signs Vital signs: Vital Signs Temp 98.4 F 08/22/17 20:00 Pulse 95 08/22/17 20:05 Resp 27 H 08/22/17 20:00 BP 114/69 08/22/17 20:00 Pulse Ox 100 08/22/17 20:00 Intake & Output 08/22/17 08/22/17 08/23/17 06:59 18:59 06:59 Intake Total 1050 1147.5 32.5 Output Total 1560 1730 250 Balance -510 -582.5 -217.5 Weight 132.4 kg 132.4 kg Intake: IV 1050 507.5 32.5 Piperacillin-Tazobactam 3 100 87.5 12.5 .375 gm In Dextrose/Water 1 50ml.bag @ 12.5 mls/hr IVPB Q8HR [facility] Rx#: [id number] Sodium Chloride 0.9% 1, 750 000 ml @ 125 mls/hr IV . Q8H [facility] Rx#:[id number] Sodium Chloride 0.9% 1, 100 220 20 000 ml @ 20 mls/hr IV . Q24H [facility] Rx#:[id number] cefTAZidime 2 gm In 100 200 Sodium Chloride 0.9% 100 ml @ 100 mls/hr IVPB Q8HR [facility] Rx#:[id number] Intake, IV Titration 400 Amount ACETAMINOPHEN IV (For NPO 100 ) 1,000 mg In Empty Bag 1 bag @ 400 mls/hr IVPB Q6HR PRN Rx#:[id number] Magnesium Sulfate-D5w Pmx 200 1 gm In Dextrose/Water 1 100ml.bag @ 100 mls/hr IVPB Q1H [facility] Rx#: [id number] cefTAZidime 2 gm In 100 Sodium Chloride 0.9% 100 ml @ 100 mls/hr IVPB Q8HR [facility] Rx#:[id number] Oral 240 Output: Urine 1560 1730 250 Other: Voiding Method Indwelling Catheter Indwelling Catheter Indwelling Catheter - Exam Pleasant 67-year-old gentleman who suffers from obesity who was miserable at this time. BiPAP though is being tolerated. Hip pain is better treated. He is less short of breath. HEENT: Anicteric conjunctiva are pink and moist nasal mucosa grossly intact without significant lesions, there is no thrush. Neck: The neck is supple without significant lymphadenopathy or thyromegaly. Lungs: There is symmetrical air entry with evidence of some crackles at the still at the right base Some expiratory wheezes are heard. Heart: Irregular with an audible S1 and S2 no S3 soft S4 There is no significant murmur click or rub, PMI was nondisplaced. Abdomen: Obese, Positive bowel sounds soft and nontender without palpable masses or organomegaly. There was no guarding or rebound. Extremities: The upper extremities have excellent pulses they are symmetric, no significant petechiae or telangiectasia. No splinter hemorrhages were noted. The left lower extremity is without significant tenderness at this time. Right lower extremity has severe pain upon manipulation. Any attempt to internally or externally rotate the limb causes him to have severe pain. There is at the chronic drainage without change from last evaluation. He has extensive areas of drainage on the buttocks bilaterally and inner thighs. Neuro: Awake alert oriented to person place and time. There are no acute new gross focal sensory motor deficits. - Labs CBC & Chem 7: 08/22/17 04:11 08/22/17 04:11 Labs: Abnormal Lab Results - Last 24 Hours (Table) 08/21/17 08/22/17 08/22/17 Range/Units 21:52 04:11 04:11 WBC 18.0 H (3.8-10.6) k/uL RBC 3.77 L (4.30-5.90) m/uL Hgb 9.6 L (13.0-17.5) gm/dL Hct 32.9 L (39.0-53.0) % MCHC 29.1 L (31.0-37.0) g/dL RDW 16.7 H (11.5-15.5) % Plt Count 459 H (150-450) k/uL Neutrophils # 14.4 H (1.3-7.7) k/uL Sodium 136 L (137-145) mmol/L Carbon Dioxide 31 H (22-30) mmol/L BUN 39 H (9-20) mg/dL Creatinine 1.30 H (0.66-1.25) mg/dL Glucose 111 H (74-99) mg/dL POC Glucose (mg/dL) 187 H (75-99) mg/dL Albumin 2.4 L (3.5-5.0) g/dL 08/22/17 08/22/17 08/22/17 Range/Units 07:24 12:10 17:11 WBC (3.8-10.6) k/uL RBC (4.30-5.90) m/uL Hgb (13.0-17.5) gm/dL Hct (39.0-53.0) % MCHC (31.0-37.0) g/dL RDW (11.5-15.5) % Plt Count (150-450) k/uL Neutrophils # (1.3-7.7) k/uL Sodium (137-145) mmol/L Carbon Dioxide (22-30) mmol/L BUN (9-20) mg/dL Creatinine (0.66-1.25) mg/dL Glucose (74-99) mg/dL POC Glucose (mg/dL) 153 H 142 H 199 H (75-99) mg/dL Albumin (3.5-5.0) g/dL 08/22/17 Range/Units 20:10 WBC (3.8-10.6) k/uL RBC (4.30-5.90) m/uL Hgb (13.0-17.5) gm/dL Hct (39.0-53.0) % MCHC (31.0-37.0) g/dL RDW (11.5-15.5) % Plt Count (150-450) k/uL Neutrophils # (1.3-7.7) k/uL Sodium (137-145) mmol/L Carbon Dioxide (22-30) mmol/L BUN (9-20) mg/dL Creatinine (0.66-1.25) mg/dL Glucose (74-99) mg/dL POC Glucose (mg/dL) 190 H (75-99) mg/dL Albumin (3.5-5.0) g/dL Laboratory Results WBC 18.0 k/uL (3.8-10.6) H 08/22/17 04:11 RBC 3.77 m/uL (4.30-5.90) L 08/22/17 04:11 Hgb 9.6 gm/dL (13.0-17.5) L 08/22/17 04:11 Hct 32.9 % (39.0-53.0) L 08/22/17 04:11 MCV 87.3 fL (80.0-100.0) 08/22/17 04:11 MCH 25.4 pg (25.0-35.0) 08/22/17 04:11 MCHC 29.1 g/dL (31.0-37.0) L 08/22/17 04:11 RDW 16.7 % (11.5-15.5) H 08/22/17 04:11 Plt Count 459 k/uL (150-450) H 08/22/17 04:11 Neutrophils % 80 % 08/22/17 04:11 Lymphocytes % 12 % 08/22/17 04:11 Monocytes % 4 % 08/22/17 04:11 Eosinophils % 2 % 08/22/17 04:11 Basophils % 0 % 08/22/17 04:11 Neutrophils # 14.4 k/uL (1.3-7.7) H 08/22/17 04:11 Lymphocytes # 2.1 k/uL (1.0-4.8) 08/22/17 04:11 Monocytes # 0.8 k/uL (0-1.0) 08/22/17 04:11 Eosinophils # 0.4 k/uL (0-0.7) 08/22/17 04:11 Basophils # 0.1 k/uL (0-0.2) 08/22/17 04:11 Hypochromasia Marked 08/22/17 04:11 Anisocytosis Slight 08/22/17 04:11 Sample Site lbrac 08/16/17 08:01 ABG pH 7.46 (7.35-7.45) H 08/16/17 08:01 ABG pCO2 46 mmHg (35-45) H 08/16/17 08:01 ABG pO2 47 mmHg (83-108) L 08/16/17 08:01 ABG HCO3 32 mmol/L (21-25) H 08/16/17 08:01 ABG Total CO2 34 mmol/L (19-24) H 08/16/17 08:01 ABG O2 Saturation 85.0 % (94-97) L 08/16/17 08:01 ABG Base Excess 8.0 mmol/L 08/16/17 08:01 FiO2 60 % 08/16/17 08:01 Sodium 136 mmol/L (137-145) L 08/22/17 04:11 Potassium 4.8 mmol/L (3.5-5.1) 08/22/17 04:11 Chloride 98 mmol/L (98-107) 08/22/17 04:11 Carbon Dioxide 31 mmol/L (22-30) H 08/22/17 04:11 Anion Gap 7 mmol/L 08/22/17 04:11 BUN 39 mg/dL (9-20) H 08/22/17 04:11 Creatinine 1.30 mg/dL (0.66-1.25) H 08/22/17 04:11 Est GFR (MDRD) Af Amer >60 (>60 ml/min/1.73 sqM) 08/22/17 04:11 Est GFR (MDRD) Non-Af 55 (>60 ml/min/1.73 sqM) 08/22/17 04:11 Glucose 111 mg/dL (74-99) H 08/22/17 04:11 POC Glucose (mg/dL) 190 mg/dL (75-99) H 08/22/17 20:10 POC Glu Warp Picker Sandra Vidal 08/22/17 20:[address] Glu mg/dL 143 mg/dL 08/16/17 07:03 Hemoglobin A1c 6.6 % (4.2-6.1) H 08/16/17 07:03 Calcium 8.7 mg/dL (8.4-10.2) 08/22/17 04:11 Phosphorus 4.3 mg/dL (2.5-4.5) 08/22/17 04:11 Magnesium 1.9 mg/dL (1.6-2.3) 08/22/17 04:11 Iron 29 ug/dL (65-175) L 08/18/17 04:20 TIBC 171 ug/dL (228-460) L 08/18/17 04:20 Iron Saturation 16.96 (15.00-50.00) 08/18/17 04:20 Ferritin 533.4 ng/mL (22.0-322.0) H 08/18/17 04:20 Total Bilirubin 0.3 mg/dL (0.2-1.3) 08/22/17 04:11 AST 37 U/L (17-59) 08/22/17 04:11 ALT 35 U/L (21-72) 08/22/17 04:11 Alkaline Phosphatase 101 U/L (38-126) 08/22/17 04:11 Total Protein 6.6 g/dL (6.3-8.2) 08/22/17 04:11 Albumin 2.4 g/dL (3.5-5.0) L 08/22/17 04:11 Cortisol 9 ug/dL 08/17/17 04:38 Urine Color Yellow 08/14/17 23:45 Urine Appearance Clear (Clear) 08/14/17 23:45 Urine pH 5.5 (5.0-8.0) 08/14/17 23:45 Ur Specific [place] 1.011 (1.001-1.035) 08/14/17 23:45 Urine Protein Negative (Negative) 08/14/17 23:45 Urine Glucose (UA) Negative (Negative) 08/14/17 23:45 Urine Ketones Negative (Negative) 08/14/17 23:45 Urine Blood Trace (Negative) H 08/14/17 23:45 Urine Nitrite Negative (Negative) 08/14/17 23:45 Urine Bilirubin Negative (Negative) 08/14/17 23:45 Urine Urobilinogen <2.0 mg/dL (<2.0) 08/14/17 23:45 Ur Leukocyte Esterase Negative (Negative) 08/14/17 23:45 Urine RBC 9 /hpf (0-5) H 08/14/17 23:45 Urine WBC 1 /hpf (0-5) 08/14/17 23:45 Hyaline Casts 3 /lpf (0-2) H 08/14/17 23:45 Urine Mucus Rare /hpf (None) H 08/14/17 23:45 Assessment and Plan (1) Fall Status: Acute (2) Acute right hip pain Status: Acute (3) Rib pain on left side Status: Acute (4) Hidradenitis suppurativa Narrative/Plan: 67-year-old male has multiple medical troubles including his history of squamous cell lung cancer fifth being monitored by oncology. He is followed in the infectious disease office for the treatment of his hidradenitis which is being treated currently with Humira. There has been some improvement of his significant disease state but not resolution. The last office visit the and I agreed that we would continue treatment at least until the next quarter. He tolerated this very well. He has had no worsening of his anemia or renal failure . While in hospital his Humira is on hold. Continues to have significant pain to the right hip because of the fall. Orthopedics is following. Orthopedics apparently does not believe that there is a fracture and just has a hyperextension injury. And they will follow as needed. Is noted he is on BiPAP for his respiratory failure from his mucous plugging. For antimicrobial therapy with the isolation of the Moraxella and Pseudomonas, ceftazidime was initiated at 2 g IV piggyback every 8 hours He is having more comfortable at this time. As has noted dressings are not needed just have him on a drainage had and allow the drainage from his large draining sinus tracts to be absorbed into the pads. If he needs to be moved about, a brief maybe applied. Severe right hip pain is slightly improved. Patient is now improved. Is not requiring BiPAP any further. We'll build moved to the stepdown unit. Ceftaroline is being utilized and would like to have a ten-day course of therapy given his extensive pneumonia. Patient's Humira is on hold and this will be discussed and outpatient visits if this is be prudent for further use Status: Acute
[2017-08-22] MEDS: CYCLOBENZAPRINE 10 MG TAB PO PRN (22:04)
[2017-08-23] MEDS: HYDROcodone/APAP 7.5-325MG 1 EACH TAB PO PRN ×4 (01:26→22:34)
[2017-08-23] MEDS ORDERED: KETOROLAC 30 MG/ML 1 ML VIAL IVP STA (04:18)
[2017-08-23] MEDS ORDERED: ACETAMINOPHEN IV (For NPO) 1,000 MG in EMPTY BAG 1 BAG IVPB PRN (04:19)
[2017-08-23 06:19] LABS: Glucose,Whole Blood 265 mg/dL (75-99)
[2017-08-23 06:23] LABS: Anisocytosis Slight; Basophils # (A) 0.1 k/uL (0-0.2); Basophils % (A) 0 %; CH 24.8; CHCM 28.1; Eosinophils # (A) 0.4 k/uL (0-0.7); Eosinophils % (A) 2 %; HCT 34.3 % (39.0-53.0); HDW 2.36; HGB 9.9 gm/dL (13.0-17.5); Hypochromasia Marked; Luc # (Auto) 0.31; Luc % (Auto) 2; Lymphocytes # (A) 1.6 k/uL (1.0-4.8); Lymphocytes % (A) 8 %; MCH 25.4 pg (25.0-35.0); MCHC 28.7 g/dL (31.0-37.0); MCV 88.5 fL (80.0-100.0); Mean Platelet Volume 7.1; Monocytes # (A) 0.9 k/uL (0-1.0); Monocytes % (A) 4 %; Neutrophils # (A) 17.5 k/uL (1.3-7.7); Neutrophils % (A) 84 %; RBC 3.88 m/uL (4.30-5.90); WBC 20.8 k/uL (3.8-10.6); WBC (Perox) 21.66
[2017-08-23] MEDS: CALCIUM CARB-VIT D 500MG-200UN 1 EACH TAB PO SCH ×2 (06:24→17:24)
[2017-08-23] MEDS: PANTOPRAZOLE 40 MG TABLET PO SCH (06:24)
[2017-08-23] MEDS: INSULIN LISPRO (humaLOG) 300 UNIT/3 ML VIAL SQ SCH ×5 (06:25→21:50)
[2017-08-23 06:28] LABS: ALT 40 U/L (21-72); AST 20 U/L (17-59); Alkaline Phosphatase 100 U/L (38-126); Anion Gap 9 mmol/L; Blood Urea Nitrogen 31 mg/dL (9-20); Calcium 8.6 mg/dL (8.4-10.2); Carbon Dioxide 28 mmol/L (22-30); Chloride 96 mmol/L (98-107); Glucose 122 mg/dL (74-99); Magnesium 1.6 mg/dL (1.6-2.3); Non-African American GFR(MDRD) >60 (>60 ml/min/1.73 sqM); Phosphorous 4.6 mg/dL (2.5-4.5); Potassium 4.8 mmol/L (3.5-5.1); Sodium 133 mmol/L (137-145); Total Bilirubin 0.4 mg/dL (0.2-1.3); Total Protein 6.8 g/dL (6.3-8.2)
[2017-08-23] MEDS: ALBUTEROL NEBULIZED 2.5 MG/3 ML INHALATION SCH ×2 (08:00→11:46)
[2017-08-23] MEDS: ACETYLCYSTEINE 800 MG/4 ML VIAL INHALATION SCH ×2 (08:01→11:46)
[2017-08-23] MEDS: guaiFENesin 600 MG TABLET.ER PO SCH ×2 (09:28→20:28)
[2017-08-23] MEDS: ALLOPURINOL 100 MG TAB PO SCH (09:28)
[2017-08-23] MEDS: METOLAZONE 5 MG TAB PO SCH (09:29)
[2017-08-23] MEDS: CITALOPRAM HYDROBROMIDE 20 MG TAB PO SCH (09:29)
[2017-08-23] MEDS: METOPROLOL SUCCINATE (ER) 25 MG TAB.ER.24H PO SCH ×2 (09:29→20:28)
[2017-08-23] MEDS: LINAGLIPTIN 5 MG TABLET PO SCH (09:29)
[2017-08-23] MEDS: DILTIAZEM CD 180 MG CAP.ER.24H PO SCH (09:30)
[2017-08-23] MEDS: BACITRACIN 500 UNIT/GM OINT 28.4 GM TUBE TOPICAL SCH (09:30)
[2017-08-23] MEDS: predniSONE 10 MG TAB PO SCH (09:30)
[2017-08-23] MEDS: NYSTATIN 100,000 UNIT/ML SUSP 500,000 UNIT/5 ML CUP PO SCH ×4 (09:31→20:29)
[2017-08-23] MEDS: PIPERACILLIN-TAZOBACTAM 3.375 GM in DEXTROSE/WATER 1 50ML.BAG IVPB SCH ×2 (09:36→15:45)
--- NOTE | 2017-08-23 09:37 | XR ---
EXAMINATION TYPE: XR chest 1V portable DATE OF EXAM: 08/23/2017 COMPARISON: Prior chest x-ray 08/22/[address] 07/21/2017 HISTORY: Abnormal chest x-ray, mucous plug TECHNIQUE: Single frontal view of the chest is obtained. FINDINGS: Pleural parenchymal changes are similar to prior exam, patient is rotated. Heart is enlarg ed. There may be associated pleural effusion. Increased right paratracheal density is again noted. Vo lume loss noted again in the right hemithorax. Pulmonary artery is prominent. Endotracheal lesion not ed on CT is not seen on plain film. IMPRESSION: Similar findings to prior exam. Endotracheal lesion noted on prior chest CT from outside institution not seen on chest x-ray.
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
[2017-08-23] MEDS: LIDOCAINE 5% PATCH TOPICAL SCH (11:34)
[2017-08-23 11:52] LABS: Glucose,Whole Blood 136 mg/dL (75-99)
--- NOTE | 2017-08-23 13:13 | P.PN ---
Subjective Progress note dated 08/21/2017 This is a patient who has been having issues with mucus plugging. He is undergoing bronchoscopy on the and 18 of August and then again on August 20. He is a previous history of right lobectomy for lung cancer. He was in a team on August 16 having been admitted to the hospital on August 14 falling and injuring his right hip and shoulder. Anyway my partner has done bronchoscopy for mucous plugging and right lung collapse. Today's chest x-ray shows some aeration to the apex of the right lung and is certainly better than yesterday's x-ray. The patient's on good antibiotics. The patient getting nasal O2 at 5 L high flow or BiPAP at 12 and 5 and 40%. Only getting about 500- 550 on the incentive spirometer. Also receiving Mucomyst and bronchodilators. Is getting appointment 9 IV at 20 mL an hour. BAL showed evidence of Pseudomonas aeruginosa and the patient was placed on Fortaz. Also on Zosyn. Progress note dated 08/22/2017 This is a 67-year-old male who was admitted a number of days ago. He was in a team on August 16 [place] been admitted to the hospital on August 14. He apparently fell and injured his right shoulder and right hip. Subsequent to that because a mucous plugging and because of previous of lung cancer surgery on the right lung, the patient underwent bronchoscopy on the and August 18 and then again on August 20. Anyway, today's chest x-ray does show improvement. We've been focusing on deep breathing coughing clearing of secretions incentive spirometer breathing treatments and N-acetylcysteine. Anyway he does look better. He does not need to use of BiPAP as frequently as he is using an can rather stay on nasal prongs. Her saturations are excellent. He is on 5 L. His BAL showed evidence of Pseudomonas aeruginosa and he was placed on his Fortaz. Also remains on Zosyn. Progress note dated 08/23/2017 67-year-old male with history of fall with injury to right shoulder and right hip. The patient was admitted to the hospital August 14 and moved to the ICU on August 16 via an 18 call. Subsequent to that, he underwent bronchoscopy for right lung collapse on August 16 August 18 and then again on August 20. The patient's overall clinical status and x-rays are improving. The patient is out on the floor. Breathing better. Feeling better. Coughing clearing secretions and using the incentive spirometer. He remains on antibiotics and breathing treatments. His bronchoscopy revealed evidence of pseudomonas aeruginosa which is being treated by the antibiotic call for test. Other than that things are moving along well. Objective - Vital Signs Vital signs: Vital Signs Temp 97.2 F L 08/23/17 08:00 Pulse 96 08/23/17 12:33 Resp 20 08/23/17 08:00 BP 132/80 08/23/17 08:00 Pulse Ox 95 08/23/17 08:00 Intake & Output 08/22/17 08/23/17 08/23/17 18:59 06:59 18:59 Intake Total 1147.5 32.5 236 Output Total 1730 1250 Balance -582.5 -1217.5 236 Weight 132.4 kg 146 kg Intake: IV 507.5 32.5 Piperacillin-Tazobactam 3 87.5 12.5 .375 gm In Dextrose/Water 1 50ml.bag @ 12.5 mls/hr IVPB Q8HR [facility] Rx#: [id number] Sodium Chloride 0.9% 1, 220 20 000 ml @ 20 mls/hr IV . Q24H [facility] Rx#:[id number] cefTAZidime 2 gm In 200 Sodium Chloride 0.9% 100 ml @ 100 mls/hr IVPB Q8HR [facility] Rx#:[id number] Intake, IV Titration 400 Amount ACETAMINOPHEN IV (For NPO 100 ) 1,000 mg In Empty Bag 1 bag @ 400 mls/hr IVPB Q6HR PRN Rx#:[id number] Magnesium Sulfate-D5w Pmx 200 1 gm In Dextrose/Water 1 100ml.bag @ 100 mls/hr IVPB Q1H [facility] Rx#: [id number] cefTAZidime 2 gm In 100 Sodium Chloride 0.9% 100 ml @ 100 mls/hr IVPB Q8HR [facility] Rx#:[id number] Oral 240 236 Output: Urine 1730 1250 Other: Voiding Method Indwelling Catheter Indwelling Catheter Indwelling Catheter # Bowel Movements 1 - Exam No acute distress, oriented 3. HEENT examination is grossly unremarkable. Mucous membranes are moist. No oral lesions. Neck supple. Full range of motion. No adenopathy or thyromegaly. Neck veins are flat. Cardiovascular examination reveals regular rhythm rate. S1-S2 normal. No S3- S4 or murmur. Lungs reveal diminished breath sounds on the right. A few scattered rhonchi on the right. Abdomen soft bowel sounds are heard. No masses or tenderness. Extremities reveal no evidence of cyanosis clubbing or edema. Skin is without rash. Neurologic examination is nonfocal. - Labs CBC & Chem 7: 08/23/17 05:50 08/23/17 05:50 Labs: Abnormal Lab Results - Last 24 Hours (Table) 08/22/17 08/22/17 08/23/17 Range/Units 17:11 20:10 05:50 WBC 20.8 H (3.8-10.6) k/uL RBC 3.88 L (4.30-5.90) m/uL Hgb 9.9 L (13.0-17.5) gm/dL Hct 34.3 L (39.0-53.0) % MCHC 28.7 L (31.0-37.0) g/dL RDW 17.0 H (11.5-15.5) % Plt Count 466 H (150-450) k/uL Neutrophils # 17.5 H (1.3-7.7) k/uL Sodium (137-145) mmol/L Chloride (98-107) mmol/L BUN (9-20) mg/dL Glucose (74-99) mg/dL POC Glucose (mg/dL) 199 H 190 H (75-99) mg/dL Phosphorus (2.5-4.5) mg/dL Albumin (3.5-5.0) g/dL 08/23/17 08/23/17 08/23/17 Range/Units 05:50 06:12 11:50 WBC (3.8-10.6) k/uL RBC (4.30-5.90) m/uL Hgb (13.0-17.5) gm/dL Hct (39.0-53.0) % MCHC (31.0-37.0) g/dL RDW (11.5-15.5) % Plt Count (150-450) k/uL Neutrophils # (1.3-7.7) k/uL Sodium 133 L (137-145) mmol/L Chloride 96 L (98-107) mmol/L BUN 31 H (9-20) mg/dL Glucose 122 H (74-99) mg/dL POC Glucose (mg/dL) 265 H 136 H (75-99) mg/dL Phosphorus 4.6 H (2.5-4.5) mg/dL Albumin 2.5 L (3.5-5.0) g/dL Assessment and Plan (1) Acute right hip pain Status: Acute (2) Diabetes Status: Acute (3) Fall Status: Acute (4) Acute on chronic systolic heart failure Status: Acute (5) Atrial fibrillation with rapid ventricular response Status: Acute (6) Benign paroxysmal positional vertigo Status: Acute (7) Brainstem stroke Status: Acute (8) Congestive heart failure Status: Acute (9) Diastolic CHF, acute on chronic Status: Acute (10) HTN (hypertension) Status: Acute (11) History of lung cancer Status: Acute (12) Hyperlipemia Status: Acute (13) Non-small cell carcinoma of lung Status: Acute (14) Pneumonia Status: Acute (15) Renal insufficiency Status: Acute (16) V-tach Status: Acute (17) Type 2 diabetes mellitus without complications Status: Chronic Plan: Plan The patient will continue working on incentive spirometry bronchodilators coughing deep breathing and clearing of secretions. The patient's medications are appropriate. We'll continue to follow closely. He may need bronchoscopy in the future. No additional recommendations are made. Antibiotics are appropriate. Plan dated 08/22/2017 The patient continues to show improvement both clinically and radiographically. He continues with incentive spirometer every hour while awake breathing treatments mucolytic's deep breathing coughing and clearing of secretions. I don't believe he needs bronchoscopy at this time. He doesn't need to be on BiPAP 16 hours a day. We'll not alter his fluids based on whether or not he is or is not on BiPAP. We'll continue to follow closely. Plan dated 08/23/2017 Meds labs and x-rays are all reviewed. The patient seemed be clinically improved. Chest x-ray my in my opinion is improved. Clinically he is much better. We'll continue to follow. Discharge planning underway. No additional recommendations are made. Medications are reviewed. Time with Patient: Less than 30
[2017-08-23] MEDS ORDERED: IPRATROPIUM-ALBUTEROL 3 ML NEB INHALATION PRN (13:14)
[2017-08-23] MEDS: IPRATROPIUM-ALBUTEROL 3 ML NEB INHALATION SCH ×2 (16:20→20:37)
[2017-08-23 16:44] LABS: Glucose,Whole Blood 152 mg/dL (75-99)
[2017-08-23] MEDS: LOPERAMIDE 2 MG CAP PO PRN (19:17)
[2017-08-23] MEDS: MULTIVITAMINS, THERA 1 EACH TAB PO SCH (20:28)
[2017-08-23] MEDS: SODIUM CHLORIDE 0.9% 1,000 ML IV SCH (20:29)
[2017-08-23] MEDS: SYMBICORT 160-4.5 MCG INHALER INHALATION SCH (20:37)
[2017-08-23] MEDS: AZITHROMYCIN 500 MG TAB PO SCH (20:49)
[2017-08-23 21:05] LABS: Glucose,Whole Blood 148 mg/dL (75-99)
--- NOTE | 2017-08-23 21:10 | P.PN ---
Subjective Progress Note Date: 08/23/17 Principal diagnosis: Fall with left hip pain 67-year-old male who is well-known to the infectious disease service with as many hospitalizations as well as his hidradenitis. He's had a couple hospitalizations in the last several months that included atrial fibrillation with nonsustained V. tach. He has underlying cardiac murmur. He's had vertigo and acute renal failure. He's had some time at the extended care facility in the past year but is now home Doing relatively well under the care of his . He was hospitalized earlier this year with a bout of congestive heart failure and is in relatively well since that time. The. The patient was bathing and suffered a fall and now presents with severe right sided hip pain. He's been evaluated by orthopedics. The hidradenitis is now being treated with Humira injections at home. This is on Fridays. This has been occurring for the last couple of months now. There is been decreasing amount of drainage. His skin is becoming less erythematous and inflamed. The amount of drainage is improving The family is pleased that there is showing some improvement given the many year history of lack of improvement. However was still must apply large amounts of dressings on a daily basis to contain his drainage. The patient never became progressively more short of breath. Was transferred to intensive care unit. He's been seen by pulmonary and underwent bronchoscopy for removal of large mucous plugging to the right lung. Patient remains on BiPAP but is more stable at this time. Antimicrobial therapy was initiated with concerns to pneumonia with this pulmonary process. Cultures have revealed Moraxella and pseudomonas aeruginosa He has slightly improved pain today. Pulmonary status again was giving him difficulties, and again had bronchoscopy for a third time to remove more mucous plugs. Is now doing better. No need for any further bronchoscopy has been noted. Breathing status is improved. It is stable since his transfer to [facility]. He voices no new complaints. Objective - Vital Signs Vital signs: Vital Signs Temp 98 F 08/23/17 16:00 Pulse 95 08/23/17 20:52 Resp 18 08/23/17 16:00 BP 129/74 08/23/17 16:00 Pulse Ox 96 08/23/17 16:20 Intake & Output 08/23/17 08/23/17 08/24/17 06:59 18:59 06:59 Intake Total 32.5 236 Output Total 1250 1450 Balance -1217.5 -1214 Weight 146 kg Intake: IV 32.5 Piperacillin-Tazobactam 3 12.5 .375 gm In Dextrose/Water 1 50ml.bag @ 12.5 mls/hr IVPB Q8HR [facility] Rx#: [id number] Sodium Chloride 0.9% 1, 20 000 ml @ 20 mls/hr IV . Q24H [facility] Rx#:[id number] Oral 236 Output: Urine 1250 1450 Other: Voiding Method Indwelling Catheter Indwelling Catheter # Bowel Movements 1 - Exam Pleasant 67-year-old gentleman who suffers from obesity who was miserable at this time. BiPAP though is being tolerated. Hip pain is better treated. He is less short of breath. HEENT: Anicteric conjunctiva are pink and moist nasal mucosa grossly intact without significant lesions, there is no thrush. Neck: The neck is supple without significant lymphadenopathy or thyromegaly. Lungs: There is symmetrical air entry with evidence of some crackles at the still at the right base Some expiratory wheezes are heard. Heart: Irregular with an audible S1 and S2 no S3 soft S4 There is no significant murmur click or rub, PMI was nondisplaced. Abdomen: Obese, Positive bowel sounds soft and nontender without palpable masses or organomegaly. There was no guarding or rebound. Extremities: The upper extremities have excellent pulses they are symmetric, no significant petechiae or telangiectasia. No splinter hemorrhages were noted. The left lower extremity is without significant tenderness at this time. Right lower extremity has severe pain upon manipulation. Any attempt to internally or externally rotate the limb causes him to have severe pain. There is at the chronic drainage without change from last evaluation. He has extensive areas of drainage on the buttocks bilaterally and inner thighs. Neuro: Awake alert oriented to person place and time. There are no acute new gross focal sensory motor deficits. - Labs CBC & Chem 7: 08/23/17 05:50 08/23/17 05:50 Labs: Abnormal Lab Results - Last 24 Hours (Table) 08/23/17 08/23/17 08/23/17 Range/Units 05:50 05:50 06:12 WBC 20.8 H (3.8-10.6) k/uL RBC 3.88 L (4.30-5.90) m/uL Hgb 9.9 L (13.0-17.5) gm/dL Hct 34.3 L (39.0-53.0) % MCHC 28.7 L (31.0-37.0) g/dL RDW 17.0 H (11.5-15.5) % Plt Count 466 H (150-450) k/uL Neutrophils # 17.5 H (1.3-7.7) k/uL Sodium 133 L (137-145) mmol/L Chloride 96 L (98-107) mmol/L BUN 31 H (9-20) mg/dL Glucose 122 H (74-99) mg/dL POC Glucose (mg/dL) 265 H (75-99) mg/dL Phosphorus 4.6 H (2.5-4.5) mg/dL Albumin 2.5 L (3.5-5.0) g/dL 08/23/17 08/23/17 08/23/17 Range/Units 11:50 16:41 21:02 WBC (3.8-10.6) k/uL RBC (4.30-5.90) m/uL Hgb (13.0-17.5) gm/dL Hct (39.0-53.0) % MCHC (31.0-37.0) g/dL RDW (11.5-15.5) % Plt Count (150-450) k/uL Neutrophils # (1.3-7.7) k/uL Sodium (137-145) mmol/L Chloride (98-107) mmol/L BUN (9-20) mg/dL Glucose (74-99) mg/dL POC Glucose (mg/dL) 136 H 152 H 148 H (75-99) mg/dL Phosphorus (2.5-4.5) mg/dL Albumin (3.5-5.0) g/dL Laboratory Results WBC 20.8 k/uL (3.8-10.6) H 08/23/17 05:50 RBC 3.88 m/uL (4.30-5.90) L 08/23/17 05:50 Hgb 9.9 gm/dL (13.0-17.5) L 08/23/17 05:50 Hct 34.3 % (39.0-53.0) L 08/23/17 05:50 MCV 88.5 fL (80.0-100.0) 08/23/17 05:50 MCH 25.4 pg (25.0-35.0) 08/23/17 05:50 MCHC 28.7 g/dL (31.0-37.0) L 08/23/17 05:50 RDW 17.0 % (11.5-15.5) H 08/23/17 05:50 Plt Count 466 k/uL (150-450) H 08/23/17 05:50 Neutrophils % 84 % 08/23/17 05:50 Lymphocytes % 8 % 08/23/17 05:50 Monocytes % 4 % 08/23/17 05:50 Eosinophils % 2 % 08/23/17 05:50 Basophils % 0 % 08/23/17 05:50 Neutrophils # 17.5 k/uL (1.3-7.7) H 08/23/17 05:50 Lymphocytes # 1.6 k/uL (1.0-4.8) 08/23/17 05:50 Monocytes # 0.9 k/uL (0-1.0) 08/23/17 05:50 Eosinophils # 0.4 k/uL (0-0.7) 08/23/17 05:50 Basophils # 0.1 k/uL (0-0.2) 08/23/17 05:50 Hypochromasia Marked 08/23/17 05:50 Anisocytosis Slight 08/23/17 05:50 Sample Site lbrac 08/16/17 08:01 ABG pH 7.46 (7.35-7.45) H 08/16/17 08:01 ABG pCO2 46 mmHg (35-45) H 08/16/17 08:01 ABG pO2 47 mmHg (83-108) L 08/16/17 08:01 ABG HCO3 32 mmol/L (21-25) H 08/16/17 08:01 ABG Total CO2 34 mmol/L (19-24) H 08/16/17 08:01 ABG O2 Saturation 85.0 % (94-97) L 08/16/17 08:01 ABG Base Excess 8.0 mmol/L 08/16/17 08:01 FiO2 60 % 08/16/17 08:01 Sodium 133 mmol/L (137-145) L 08/23/17 05:50 Potassium 4.8 mmol/L (3.5-5.1) 08/23/17 05:50 Chloride 96 mmol/L (98-107) L 08/23/17 05:50 Carbon Dioxide 28 mmol/L (22-30) 08/23/17 05:50 Anion Gap 9 mmol/L 08/23/17 05:50 BUN 31 mg/dL (9-20) H 08/23/17 05:50 Creatinine 1.20 mg/dL (0.66-1.25) 08/23/17 05:50 Est GFR (MDRD) Af Amer >60 (>60 ml/min/1.73 sqM) 08/23/17 05:50 Est GFR (MDRD) Non-Af >60 (>60 ml/min/1.73 sqM) 08/23/17 05:50 Glucose 122 mg/dL (74-99) H 08/23/17 05:50 POC Glucose (mg/dL) 148 mg/dL (75-99) H 08/23/17 21:02 POC Glu Electrical Sign Wirer Helper ID Kadi Linares 08/23/17 21:[address] Glu mg/dL 143 mg/dL 08/16/17 07:03 Hemoglobin A1c 6.6 % (4.2-6.1) H 08/16/17 07:03 Calcium 8.6 mg/dL (8.4-10.2) 08/23/17 05:50 Phosphorus 4.6 mg/dL (2.5-4.5) H 08/23/17 05:50 Magnesium 1.6 mg/dL (1.6-2.3) 08/23/17 05:50 Iron 29 ug/dL (65-175) L 08/18/17 04:20 TIBC 171 ug/dL (228-460) L 08/18/17 04:20 Iron Saturation 16.96 (15.00-50.00) 08/18/17 04:20 Ferritin 533.4 ng/mL (22.0-322.0) H 08/18/17 04:20 Total Bilirubin 0.4 mg/dL (0.2-1.3) 08/23/17 05:50 AST 20 U/L (17-59) 08/23/17 05:50 ALT 40 U/L (21-72) 08/23/17 05:50 Alkaline Phosphatase 100 U/L (38-126) 08/23/17 05:50 Total Protein 6.8 g/dL (6.3-8.2) 08/23/17 05:50 Albumin 2.5 g/dL (3.5-5.0) L 08/23/17 05:50 Cortisol 9 ug/dL 08/17/17 04:38 Urine Color Yellow 08/14/17 23:45 Urine Appearance Clear (Clear) 08/14/17 23:45 Urine pH 5.5 (5.0-8.0) 08/14/17 23:45 Ur Specific [place] 1.011 (1.001-1.035) 08/14/17 23:45 Urine Protein Negative (Negative) 08/14/17 23:45 Urine Glucose (UA) Negative (Negative) 08/14/17 23:45 Urine Ketones Negative (Negative) 08/14/17 23:45 Urine Blood Trace (Negative) H 08/14/17 23:45 Urine Nitrite Negative (Negative) 08/14/17 23:45 Urine Bilirubin Negative (Negative) 08/14/17 23:45 Urine Urobilinogen <2.0 mg/dL (<2.0) 08/14/17 23:45 Ur Leukocyte Esterase Negative (Negative) 08/14/17 23:45 Urine RBC 9 /hpf (0-5) H 08/14/17 23:45 Urine WBC 1 /hpf (0-5) 08/14/17 23:45 Hyaline Casts 3 /lpf (0-2) H 08/14/17 23:45 Urine Mucus Rare /hpf (None) H 08/14/17 23:45 Assessment and Plan (1) Fall Status: Acute (2) Acute right hip pain Status: Acute (3) Rib pain on left side Status: Acute (4) Hidradenitis suppurativa Narrative/Plan: 67-year-old male has multiple medical troubles including his history of squamous cell lung cancer fifth being monitored by oncology. He is followed in the infectious disease office for the treatment of his hidradenitis which is being treated currently with Humira. There has been some improvement of his significant disease state but not resolution. The last office visit the and I agreed that we would continue treatment at least until the next quarter. He tolerated this very well. He has had no worsening of his anemia or renal failure . While in hospital his Humira is on hold. Continues to have significant pain to the right hip because of the fall. Orthopedics is following. Orthopedics apparently does not believe that there is a fracture and just has a hyperextension injury. And they will follow as needed. Is noted he is on BiPAP for his respiratory failure from his mucous plugging. For antimicrobial therapy with the isolation of the Moraxella and Pseudomonas, ceftazidime was initiated at 2 g IV piggyback every 8 hours He is having more comfortable at this time. As has noted dressings are not needed just have him on a drainage had and allow the drainage from his large draining sinus tracts to be absorbed into the pads. If he needs to be moved about, a brief maybe applied. Severe right hip pain is slightly improved. Patient is now improved. Is not requiring BiPAP any further. Doing well in the current setting. Ceftaroline is being utilized and would like to have a ten -day course of therapy given his extensive pneumonia. Patient's Humira is on hold and this will be discussed and outpatient visits if this is be prudent for further use Status: Acute
[2017-08-24] MEDS: PIPERACILLIN-TAZOBACTAM 3.375 GM in DEXTROSE/WATER 1 50ML.BAG IVPB SCH ×2 (01:02→09:45)
[2017-08-24] MEDS: CYCLOBENZAPRINE 10 MG TAB PO PRN ×3 (02:48→21:23)
[2017-08-24] MEDS: HYDROcodone/APAP 7.5-325MG 1 EACH TAB PO PRN ×4 (02:48→21:24)
[2017-08-24 06:21] LABS: Glucose,Whole Blood 103 mg/dL (75-99)
[2017-08-24 06:40] LABS: Anisocytosis Slight; Basophils # (A) 0.1 k/uL (0-0.2); Basophils % (A) 1 %; CH 24.8; CHCM 28.4; Eosinophils # (A) 0.4 k/uL (0-0.7); Eosinophils % (A) 2 %; HCT 34.5 % (39.0-53.0); HDW 2.37; Hypochromasia Marked; Luc # (Auto) 0.33; Luc % (Auto) 2; Lymphocytes % (A) 11 %; MCH 25.4 pg (25.0-35.0); MCV 87.6 fL (80.0-100.0); Mean Platelet Volume 7.2; Monocytes # (A) 0.8 k/uL (0-1.0); Monocytes % (A) 5 %; Neutrophils # (A) 13.9 k/uL (1.3-7.7); Neutrophils % (A) 79 %; RBC 3.94 m/uL (4.30-5.90); WBC 17.5 k/uL (3.8-10.6); WBC (Perox) 17.76
[2017-08-24] MEDS: INSULIN LISPRO (humaLOG) 300 UNIT/3 ML VIAL SQ SCH ×4 (06:41→21:17)
[2017-08-24] MEDS: CALCIUM CARB-VIT D 500MG-200UN 1 EACH TAB PO SCH ×2 (06:42→17:17)
[2017-08-24] MEDS: PANTOPRAZOLE 40 MG TABLET PO SCH (06:43)
[2017-08-24 06:54] LABS: ALT 32 U/L (21-72); AST 14 U/L (17-59); Alkaline Phosphatase 100 U/L (38-126); Anion Gap 7 mmol/L; Blood Urea Nitrogen 26 mg/dL (9-20); Calcium 8.7 mg/dL (8.4-10.2); Carbon Dioxide 32 mmol/L (22-30); Chloride 94 mmol/L (98-107); Glucose 109 mg/dL (74-99); Magnesium 1.5 mg/dL (1.6-2.3); Non-African American GFR(MDRD) >60 (>60 ml/min/1.73 sqM); Phosphorous 4.8 mg/dL (2.5-4.5); Potassium 4.8 mmol/L (3.5-5.1); Sodium 133 mmol/L (137-145); Total Bilirubin 0.4 mg/dL (0.2-1.3); Total Protein 6.8 g/dL (6.3-8.2)
[2017-08-24] MEDS: SYMBICORT 160-4.5 MCG INHALER INHALATION SCH ×2 (08:02→18:27)
[2017-08-24] MEDS: IPRATROPIUM-ALBUTEROL 3 ML NEB INHALATION SCH ×4 (08:02→18:27)
[2017-08-24] MEDS: BACITRACIN 500 UNIT/GM OINT 28.4 GM TUBE TOPICAL SCH (08:48)
[2017-08-24] MEDS: ALLOPURINOL 100 MG TAB PO SCH (08:48)
[2017-08-24] MEDS: CITALOPRAM HYDROBROMIDE 20 MG TAB PO SCH (08:48)
[2017-08-24] MEDS: DILTIAZEM CD 180 MG CAP.ER.24H PO SCH (08:49)
[2017-08-24] MEDS: LIDOCAINE 5% PATCH TOPICAL SCH (08:49)
[2017-08-24] MEDS: guaiFENesin 600 MG TABLET.ER PO SCH ×2 (08:49→21:17)
[2017-08-24] MEDS: LINAGLIPTIN 5 MG TABLET PO SCH (08:50)
[2017-08-24] MEDS: METOPROLOL SUCCINATE (ER) 25 MG TAB.ER.24H PO SCH ×2 (08:51→21:17)
[2017-08-24] MEDS: predniSONE 10 MG TAB PO SCH (08:51)
[2017-08-24] MEDS: NYSTATIN 100,000 UNIT/ML SUSP 500,000 UNIT/5 ML CUP PO SCH ×4 (08:51→21:18)
[2017-08-24] MEDS: METOLAZONE 5 MG TAB PO SCH (08:54)
[2017-08-24] MEDS ORDERED: Magnesium Replacement Protocol 1 EACH MISC MISCELLANE PRN (09:02)
[2017-08-24] MEDS: MAGNESIUM SULFATE-D5W PMX 1 GM in DEXTROSE/WATER 1 100ML.BAG IVPB SCH ×2 (10:38→13:00)
--- NOTE | 2017-08-24 11:33 | XR ---
EXAMINATION TYPE: XR chest 1V portable DATE OF EXAM: 08/24/2017 COMPARISON: Prior chest x-ray 08/23/2017 HISTORY: Abnormal chest x-ray TECHNIQUE: Single frontal view of the chest is obtained. FINDINGS: Findings are similar to previous exam. Pleural parenchymal changes in the right hemithorax not significantly changed. Heart remains enlarged. IMPRESSION: There is no significant interval change.
[2017-08-24 11:52] LABS: Glucose,Whole Blood 124 mg/dL (75-99)
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
[2017-08-24] MEDS: CALCITRIOL 0.25 MCG CAP PO SCH (13:00)
--- NOTE | 2017-08-24 14:10 | P.PN ---
Subjective Progress Note Date: 08/24/17 Progress note dated 08/21/2017 This is a patient who has been having issues with mucus plugging. He is undergoing bronchoscopy on the and 18 of August and then again on August 20. He is a previous history of right lobectomy for lung cancer. He was in a team on August 16 having been admitted to the hospital on August 14 falling and injuring his right hip and shoulder. Anyway my partner has done bronchoscopy for mucous plugging and right lung collapse. Today's chest x-ray shows some aeration to the apex of the right lung and is certainly better than yesterday's x-ray. The patient's on good antibiotics. The patient getting nasal O2 at 5 L high flow or BiPAP at 12 and 5 and 40%. Only getting about 500- 550 on the incentive spirometer. Also receiving Mucomyst and bronchodilators. Is getting appointment 9 IV at 20 mL an hour. BAL showed evidence of Pseudomonas aeruginosa and the patient was placed on Fortaz. Also on Zosyn. Progress note dated 08/22/2017 This is a 67-year-old male who was admitted a number of days ago. He was in a team on August 16 [place] been admitted to the hospital on August 14. He apparently fell and injured his right shoulder and right hip. Subsequent to that because a mucous plugging and because of previous of lung cancer surgery on the right lung, the patient underwent bronchoscopy on the and August 18 and then again on August 20. Anyway, today's chest x-ray does show improvement. We've been focusing on deep breathing coughing clearing of secretions incentive spirometer breathing treatments and N-acetylcysteine. Anyway he does look better. He does not need to use of BiPAP as frequently as he is using an can rather stay on nasal prongs. Her saturations are excellent. He is on 5 L. His BAL showed evidence of Pseudomonas aeruginosa and he was placed on his Fortaz. Also remains on Zosyn. Progress note dated 08/23/2017 67-year-old male with history of fall with injury to right shoulder and right hip. The patient was admitted to the hospital August 14 and moved to the ICU on August 16 via an 18 call. Subsequent to that, he underwent bronchoscopy for right lung collapse on August 16 August 18 and then again on August 20. The patient's overall clinical status and x-rays are improving. The patient is out on the floor. Breathing better. Feeling better. Coughing clearing secretions and using the incentive spirometer. He remains on antibiotics and breathing treatments. His bronchoscopy revealed evidence of pseudomonas aeruginosa which is being treated by the antibiotic call for test. Other than that things are moving along well. Progress note dated 08/24/2017 Patient is seen again today in follow-up on the selective care unit. He remains awake and alert in no acute distress. He is breathing better today as compared to yesterday. He continues with a loose nonproductive cough. He is receiving chest physiotherapy. He is maintaining good O2 saturations in the 90s on 5 L of high flow nasal cannula. Chest x-ray is essentially unchanged. There is still pleuroparenchymal changes similar to prior. There is cardiomegaly. There is associated pleural effusion. Again noted the increased right paratracheal density. He has been afebrile. White count improved currently some team 0.5. Hemoglobin 10.0. Creatinine 1.20. Objective - Vital Signs Vital signs: Vital Signs Temp 97.5 F L 08/24/17 03:49 Pulse 92 08/24/17 11:25 Resp 18 08/24/17 03:49 BP 127/75 08/24/17 03:49 Pulse Ox 96 08/24/17 03:49 Intake & Output 08/23/17 08/24/17 08/24/17 18:59 06:59 18:59 Intake Total 236 1020 240 Output Total 1450 3025 240 Weight 148 kg 148 kg Intake: IV 1020 ACETAMINOPHEN IV (For NPO 400 ) 1,000 mg In Empty Bag 1 bag @ 400 mls/hr IVPB Q6HR PRN Rx#:[id number] Piperacillin-Tazobactam 3 100 .375 gm In Dextrose/Water 1 50ml.bag @ 12.5 mls/hr IVPB Q8HR [facility] Rx#: [id number] Sodium Chloride 0.9% 1, 320 000 ml @ 20 mls/hr IV . Q24H [facility] Rx#:[id number] cefTAZidime 2 gm In 200 Sodium Chloride 0.9% 100 ml @ 100 mls/hr IVPB Q8HR [facility] Rx#:[id number] Oral 236 240 Output: Urine 1450 3025 Other: Voiding Method Indwelling Catheter Indwelling Catheter # Voids 3 # Bowel Movements 1 - Exam GENERAL EXAM: Alert, comfortable in no apparent distress. HEAD: Normocephalic. EYES: Normal reaction of pupils, equal size. NOSE: Clear with pink turbinates. THROAT: No erythema or exudates. NECK: No masses, no JVD. CHEST: No chest wall deformity. LUNGS: Equal air entry with bilateral scattered rhonchi crackles in the right posterior base. CVS: S1 and S2 normal with no audible mumurs, regular rhythm. ABDOMEN: No hepatosplenomegaly, normal bowel sounds, no guarding or rigidity. SPINE: No scoliosis or deformity SKIN: No rashes CENTRAL NERVOUS SYSTEM: No focal deficits, tone is normal in all 4 extremities. Extremities: There is trace peripheral edema. No clubbing, no cyanosis. Peripheral pulses are intact. - Labs CBC & Chem 7: 08/24/17 06:20 08/24/17 06:20 Labs: Abnormal Lab Results - Last 24 Hours (Table) 08/23/17 08/23/17 08/24/17 Range/Units 16:41 21:02 06:18 WBC (3.8-10.6) k/uL RBC (4.30-5.90) m/uL Hgb (13.0-17.5) gm/dL Hct (39.0-53.0) % MCHC (31.0-37.0) g/dL RDW (11.5-15.5) % Neutrophils # (1.3-7.7) k/uL Sodium (137-145) mmol/L Chloride (98-107) mmol/L Carbon Dioxide (22-30) mmol/L BUN (9-20) mg/dL Glucose (74-99) mg/dL POC Glucose (mg/dL) 152 H 148 H 103 H (75-99) mg/dL Phosphorus (2.5-4.5) mg/dL Magnesium (1.6-2.3) mg/dL AST (17-59) U/L Albumin (3.5-5.0) g/dL 08/24/17 08/24/17 08/24/17 Range/Units 06:20 06:20 11:50 WBC 17.5 H (3.8-10.6) k/uL RBC 3.94 L (4.30-5.90) m/uL Hgb 10.0 L (13.0-17.5) gm/dL Hct 34.5 L (39.0-53.0) % MCHC 29.0 L (31.0-37.0) g/dL RDW 17.0 H (11.5-15.5) % Neutrophils # 13.9 H (1.3-7.7) k/uL Sodium 133 L (137-145) mmol/L Chloride 94 L (98-107) mmol/L Carbon Dioxide 32 H (22-30) mmol/L BUN 26 H (9-20) mg/dL Glucose 109 H (74-99) mg/dL POC Glucose (mg/dL) 124 H (75-99) mg/dL Phosphorus 4.8 H (2.5-4.5) mg/dL Magnesium 1.5 L (1.6-2.3) mg/dL AST 14 L (17-59) U/L Albumin 2.5 L (3.5-5.0) g/dL Microbiology - Last 24 Hours (Table) 08/23/17 18:27 Stool Culture - Preliminary Stool Assessment and Plan Plan: Impression: #1 Acute on chronic systolic congestive heart failure. #2 Atrial fibrillation with varying ventricular response. #3 Acute right lung pneumonia, secondary to pseudomonas aeruginosa. #4 Acute hypoxic respiratory failure secondary to above. #5 Diabetes mellitus, type II. #6 History of CVA. #7 Hypertension. #8 History of lung, non-small cell carcinoma. History of right lower lobectomy #9 Hyperlipidemia. #10 Renal insufficiency. #11 Ventricular tachycardia. #12 Acute fall status post with right hip pain, negative for fracture. Plan: The patient was seen and evaluated by Dr. Bañuelos. Her chest x-ray was reviewed. There is no real improvement. We'll go ahead and plan for another bronchoscopy with BAL tomorrow. We'll continue with his current medications. We'll increase his activity as tolerated. We'll continue with chest physiotherapy and increased use an incentive spirometer and cough and deep breathing exercises. We'll continue to follow.
[2017-08-24] MEDS: MEGESTROL 400 MG/10 ML CUP PO SCH (16:14)
[2017-08-24] MEDS: LACTATED RINGERS 1,000 ML IV SCH (16:17)
[2017-08-24 16:54] LABS: Glucose,Whole Blood 237 mg/dL (75-99)
--- NOTE | 2017-08-24 20:36 | P.PN ---
Subjective Progress Note Date: 08/24/17 Principal diagnosis: Fall with left hip pain 67-year-old male who is well-known to the infectious disease service with as many hospitalizations as well as his hidradenitis. He's had a couple hospitalizations in the last several months that included atrial fibrillation with nonsustained V. tach. He has underlying cardiac murmur. He's had vertigo and acute renal failure. He's had some time at the extended care facility in the past year but is now home Doing relatively well under the care of his . He was hospitalized earlier this year with a bout of congestive heart failure and is in relatively well since that time. The. The patient was bathing and suffered a fall and now presents with severe right sided hip pain. He's been evaluated by orthopedics. The hidradenitis is now being treated with Humira injections at home. This is on Fridays. This has been occurring for the last couple of months now. There is been decreasing amount of drainage. His skin is becoming less erythematous and inflamed. The amount of drainage is improving The family is pleased that there is showing some improvement given the many year history of lack of improvement. However was still must apply large amounts of dressings on a daily basis to contain his drainage. The patient never became progressively more short of breath. Was transferred to intensive care unit. He's been seen by pulmonary and underwent bronchoscopy for removal of large mucous plugging to the right lung. Patient remains on BiPAP but is more stable at this time. Antimicrobial therapy was initiated with concerns to pneumonia with this pulmonary process. Cultures have revealed Moraxella and pseudomonas aeruginosa He has slightly improved pain today. Pulmonary status again was giving him difficulties, and again had bronchoscopy for a third time to remove more mucous plugs. Chest x-ray remains abnormal and he is having some ongoing cough and weak respirations. Plan for bronchoscopy tomorrow. It is stable since his transfer to [facility]. He voices no new complaints. Objective - Vital Signs Vital signs: Vital Signs Temp 97 F L 08/24/17 16:00 Pulse 86 08/24/17 18:38 Resp 18 08/24/17 16:00 BP 119/59 08/24/17 16:00 Pulse Ox 97 08/24/17 16:00 Intake & Output 08/24/17 08/24/17 08/25/17 06:59 18:59 06:59 Intake Total 1020 954 Output Total 3025 800 Balance -2005 154 Weight 148 kg 148 kg Intake: IV 1020 ACETAMINOPHEN IV (For NPO 400 ) 1,000 mg In Empty Bag 1 bag @ 400 mls/hr IVPB Q6HR PRN Rx#:[id number] Piperacillin-Tazobactam 3 100 .375 gm In Dextrose/Water 1 50ml.bag @ 12.5 mls/hr IVPB Q8HR [facility] Rx#: [id number] Sodium Chloride 0.9% 1, 320 000 ml @ 20 mls/hr IV . Q24H [facility] Rx#:[id number] cefTAZidime 2 gm In 200 Sodium Chloride 0.9% 100 ml @ 100 mls/hr IVPB Q8HR [facility] Rx#:[id number] Oral 954 Output: Urine 3025 800 Other: Voiding Method Indwelling Catheter Indwelling Catheter # Voids 3 # Bowel Movements 1 - Exam Pleasant 67-year-old gentleman who suffers from obesity who was miserable at this time. BiPAP though is being tolerated. Hip pain is better treated. HEENT: Anicteric conjunctiva are pink and moist nasal mucosa grossly intact without significant lesions, there is no thrush. Neck: The neck is supple without significant lymphadenopathy or thyromegaly. Lungs: There is symmetrical air entry with evidence of crackles at the the right base Some expiratory wheezes are heard. Voice is weak Heart: Irregular with an audible S1 and S2 no S3 soft S4 There is no significant murmur click or rub, PMI was nondisplaced. Abdomen: Obese, Positive bowel sounds soft and nontender without palpable masses or organomegaly. There was no guarding or rebound. Extremities: The upper extremities have excellent pulses they are symmetric, no significant petechiae or telangiectasia. No splinter hemorrhages were noted. The left lower extremity is without significant tenderness at this time. Right lower extremity has severe pain upon manipulation. Any attempt to internally or externally rotate the limb causes him to have severe pain. There is at the chronic drainage without change from last evaluation. He has extensive areas of drainage on the buttocks bilaterally and inner thighs. Neuro: Awake alert oriented to person place and time. There are no acute new gross focal sensory motor deficits. - Labs CBC & Chem 7: 08/24/17 06:20 08/24/17 06:20 Labs: Abnormal Lab Results - Last 24 Hours (Table) 08/23/17 08/24/17 08/24/17 Range/Units 21:02 06:18 06:20 WBC 17.5 H (3.8-10.6) k/uL RBC 3.94 L (4.30-5.90) m/uL Hgb 10.0 L (13.0-17.5) gm/dL Hct 34.5 L (39.0-53.0) % MCHC 29.0 L (31.0-37.0) g/dL RDW 17.0 H (11.5-15.5) % Neutrophils # 13.9 H (1.3-7.7) k/uL Sodium (137-145) mmol/L Chloride (98-107) mmol/L Carbon Dioxide (22-30) mmol/L BUN (9-20) mg/dL Glucose (74-99) mg/dL POC Glucose (mg/dL) 148 H 103 H (75-99) mg/dL Phosphorus (2.5-4.5) mg/dL Magnesium (1.6-2.3) mg/dL AST (17-59) U/L Albumin (3.5-5.0) g/dL 08/24/17 08/24/17 08/24/17 Range/Units 06:20 11:50 16:52 WBC (3.8-10.6) k/uL RBC (4.30-5.90) m/uL Hgb (13.0-17.5) gm/dL Hct (39.0-53.0) % MCHC (31.0-37.0) g/dL RDW (11.5-15.5) % Neutrophils # (1.3-7.7) k/uL Sodium 133 L (137-145) mmol/L Chloride 94 L (98-107) mmol/L Carbon Dioxide 32 H (22-30) mmol/L BUN 26 H (9-20) mg/dL Glucose 109 H (74-99) mg/dL POC Glucose (mg/dL) 124 H 237 H (75-99) mg/dL Phosphorus 4.8 H (2.5-4.5) mg/dL Magnesium 1.5 L (1.6-2.3) mg/dL AST 14 L (17-59) U/L Albumin 2.5 L (3.5-5.0) g/dL Microbiology - Last 24 Hours (Table) 08/23/17 18:27 Stool Culture - Preliminary Stool Laboratory Results WBC 17.5 k/uL (3.8-10.6) H 08/24/17 06:20 RBC 3.94 m/uL (4.30-5.90) L 08/24/17 06:20 Hgb 10.0 gm/dL (13.0-17.5) L 08/24/17 06:20 Hct 34.5 % (39.0-53.0) L 08/24/17 06:20 MCV 87.6 fL (80.0-100.0) 08/24/17 06:20 MCH 25.4 pg (25.0-35.0) 08/24/17 06:20 MCHC 29.0 g/dL (31.0-37.0) L 08/24/17 06:20 RDW 17.0 % (11.5-15.5) H 08/24/17 06:20 Plt Count 444 k/uL (150-450) 08/24/17 06:20 Neutrophils % 79 % 08/24/17 06:20 Lymphocytes % 11 % 08/24/17 06:20 Monocytes % 5 % 08/24/17 06:20 Eosinophils % 2 % 08/24/17 06:20 Basophils % 1 % 08/24/17 06:20 Neutrophils # 13.9 k/uL (1.3-7.7) H 08/24/17 06:20 Lymphocytes # 2.0 k/uL (1.0-4.8) 08/24/17 06:20 Monocytes # 0.8 k/uL (0-1.0) 08/24/17 06:20 Eosinophils # 0.4 k/uL (0-0.7) 08/24/17 06:20 Basophils # 0.1 k/uL (0-0.2) 08/24/17 06:20 Hypochromasia Marked 08/24/17 06:20 Anisocytosis Slight 08/24/17 06:20 Sample Site lbrac 08/16/17 08:01 ABG pH 7.46 (7.35-7.45) H 08/16/17 08:01 ABG pCO2 46 mmHg (35-45) H 08/16/17 08:01 ABG pO2 47 mmHg (83-108) L 08/16/17 08:01 ABG HCO3 32 mmol/L (21-25) H 08/16/17 08:01 ABG Total CO2 34 mmol/L (19-24) H 08/16/17 08:01 ABG O2 Saturation 85.0 % (94-97) L 08/16/17 08:01 ABG Base Excess 8.0 mmol/L 08/16/17 08:01 FiO2 60 % 08/16/17 08:01 Sodium 133 mmol/L (137-145) L 08/24/17 06:20 Potassium 4.8 mmol/L (3.5-5.1) 08/24/17 06:20 Chloride 94 mmol/L (98-107) L 08/24/17 06:20 Carbon Dioxide 32 mmol/L (22-30) H 08/24/17 06:20 Anion Gap 7 mmol/L 08/24/17 06:20 BUN 26 mg/dL (9-20) H 08/24/17 06:20 Creatinine 1.20 mg/dL (0.66-1.25) 08/24/17 06:20 Est GFR (MDRD) Af Amer >60 (>60 ml/min/1.73 sqM) 08/24/17 06:20 Est GFR (MDRD) Non-Af >60 (>60 ml/min/1.73 sqM) 08/24/17 06:20 Glucose 109 mg/dL (74-99) H 08/24/17 06:20 POC Glucose (mg/dL) 237 mg/dL (75-99) H 08/24/17 16:52 POC Glu [employer] ID Devika Lauren 08/24/17 16:[address] Glu mg/dL 143 mg/dL 08/16/17 07:03 Hemoglobin A1c 6.6 % (4.2-6.1) H 08/16/17 07:03 Calcium 8.7 mg/dL (8.4-10.2) 08/24/17 06:20 Phosphorus 4.8 mg/dL (2.5-4.5) H 08/24/17 06:20 Magnesium 1.5 mg/dL (1.6-2.3) L 08/24/17 06:20 Iron 29 ug/dL (65-175) L 08/18/17 04:20 TIBC 171 ug/dL (228-460) L 08/18/17 04:20 Iron Saturation 16.96 (15.00-50.00) 08/18/17 04:20 Ferritin 533.4 ng/mL (22.0-322.0) H 08/18/17 04:20 Total Bilirubin 0.4 mg/dL (0.2-1.3) 08/24/17 06:20 AST 14 U/L (17-59) L 08/24/17 06:20 ALT 32 U/L (21-72) 08/24/17 06:20 Alkaline Phosphatase 100 U/L (38-126) 08/24/17 06:20 Total Protein 6.8 g/dL (6.3-8.2) 08/24/17 06:20 Albumin 2.5 g/dL (3.5-5.0) L 08/24/17 06:20 Cortisol 9 ug/dL 08/17/17 04:38 Urine Color Yellow 08/14/17 23:45 Urine Appearance Clear (Clear) 08/14/17 23:45 Urine pH 5.5 (5.0-8.0) 08/14/17 23:45 Ur Specific [place] 1.011 (1.001-1.035) 08/14/17 23:45 Urine Protein Negative (Negative) 08/14/17 23:45 Urine Glucose (UA) Negative (Negative) 08/14/17 23:45 Urine Ketones Negative (Negative) 08/14/17 23:45 Urine Blood Trace (Negative) H 08/14/17 23:45 Urine Nitrite Negative (Negative) 08/14/17 23:45 Urine Bilirubin Negative (Negative) 08/14/17 23:45 Urine Urobilinogen <2.0 mg/dL (<2.0) 08/14/17 23:45 Ur Leukocyte Esterase Negative (Negative) 08/14/17 23:45 Urine RBC 9 /hpf (0-5) H 08/14/17 23:45 Urine WBC 1 /hpf (0-5) 08/14/17 23:45 Hyaline Casts 3 /lpf (0-2) H 08/14/17 23:45 Urine Mucus Rare /hpf (None) H 08/14/17 23:45 Microbiology 08/23/17 18:27 Stool Stool Culture - Preliminary Sputum culture with pseudomonas aeruginosa Assessment and Plan (1) Fall Status: Acute (2) Acute right hip pain Status: Acute (3) Rib pain on left side Status: Acute (4) Hidradenitis suppurativa Narrative/Plan: 67-year-old male has multiple medical troubles including his history of squamous cell lung cancer fifth being monitored by oncology. He is followed in the infectious disease office for the treatment of his hidradenitis which is being treated currently with Humira. There has been some improvement of his significant disease state but not resolution. The last office visit the and I agreed that we would continue treatment at least until the next quarter. He tolerated this very well. He has had no worsening of his anemia or renal failure . While in hospital his Humira is on hold. Continues to have significant pain to the right hip because of the fall. Orthopedics is following. Orthopedics apparently does not believe that there is a fracture and just has a hyperextension injury. And they will follow as needed. Is noted he is on BiPAP for his respiratory failure from his mucous plugging. For antimicrobial therapy with the isolation of the Moraxella and Pseudomonas, ceftazidime was initiated at 2 g IV piggyback every 8 hours He is having more comfortable at this time. As has noted dressings are not needed just have him on a drainage had and allow the drainage from his large draining sinus tracts to be absorbed into the pads. Severe right hip pain is slightly improved. But is still limiting his ability to sit in transfer The patient's pulmonary status continues to fluctuate, increased secretions today and x-ray without acute change endoscopy bronchoscopy will be performed tomorrow. We'll plan at least 10-14 days of ceftaz and after his last bronched and constantly have asked for a PICC line. Patient's Humira is on hold and this will be discussed and outpatient visits if this is be prudent for further use Status: Acute
[2017-08-24 21:02] LABS: Glucose,Whole Blood 216 mg/dL (75-99)
[2017-08-24] MEDS: MULTIVITAMINS, THERA 1 EACH TAB PO SCH (21:17)
[2017-08-24] MEDS: SODIUM CHLORIDE 0.9% 1,000 ML IV SCH (21:18)
[2017-08-24] MEDS: LOPERAMIDE 2 MG CAP PO PRN (23:30)
[2017-08-25] MEDS: CALCIUM CARB-VIT D 500MG-200UN 1 EACH TAB PO SCH ×2 (00:37→17:11)
[2017-08-25] MEDS: PANTOPRAZOLE 40 MG TABLET PO SCH (00:37)
[2017-08-25 05:56] LABS: Glucose,Whole Blood 134 mg/dL (75-99)
[2017-08-25] MEDS: INSULIN LISPRO (humaLOG) 300 UNIT/3 ML VIAL SQ SCH ×4 (06:36→20:59)
[2017-08-25 06:46] LABS: Anion Gap 8 mmol/L; Blood Urea Nitrogen 27 mg/dL (9-20); Calcium 8.8 mg/dL (8.4-10.2); Carbon Dioxide 30 mmol/L (22-30); Chloride 95 mmol/L (98-107); Glucose 127 mg/dL (74-99); Magnesium 1.7 mg/dL (1.6-2.3); Non-African American GFR(MDRD) >60 (>60 ml/min/1.73 sqM); Phosphorous 5.3 mg/dL (2.5-4.5); Potassium 4.6 mmol/L (3.5-5.1); Sodium 133 mmol/L (137-145)
[2017-08-25 06:49] LABS: Anisocytosis Slight; Basophils # (A) 0.1 k/uL (0-0.2); Basophils % (A) 0 %; CHCM 28.7; Eosinophils # (A) 0.3 k/uL (0-0.7); Eosinophils % (A) 2 %; HDW 2.33; HGB 10.2 gm/dL (13.0-17.5); Hypochromasia Marked; Luc # (Auto) 0.34; Luc % (Auto) 2; Lymphocytes # (A) 2.5 k/uL (1.0-4.8); Lymphocytes % (A) 12 %; MCH 25.5 pg (25.0-35.0); MCHC 29.2 g/dL (31.0-37.0); MCV 87.4 fL (80.0-100.0); Monocytes # (A) 0.9 k/uL (0-1.0); Monocytes % (A) 4 %; Neutrophils # (A) 16.7 k/uL (1.3-7.7); Neutrophils % (A) 80 %; WBC 20.9 k/uL (3.8-10.6); WBC (Perox) 22.53
--- NOTE | 2017-08-25 08:09 | XR ---
EXAMINATION TYPE: XR chest 1V portable DATE OF EXAM: 08/25/2017 COMPARISON: 08/24/2017 HISTORY: Shortness of breath TECHNIQUE: Single frontal view of the chest is obtained. FINDINGS: Right-sided consolidation and pleural based thickening noted with volume loss stable. Hear t is enlarged. No pneumothorax. Deformity of the left lateral rib cage stable. Correlate for previous trauma. Arthropathy of the shoulders. IMPRESSION: 1. Stable chronic pleural-parenchymal changes. 2. Stable cardiomegaly.
[2017-08-25] MEDS: IPRATROPIUM-ALBUTEROL 3 ML NEB INHALATION SCH ×4 (08:23→20:37)
[2017-08-25] MEDS: SYMBICORT 160-4.5 MCG INHALER INHALATION SCH ×2 (08:23→20:37)
[2017-08-25] MEDS: BACITRACIN 500 UNIT/GM OINT 28.4 GM TUBE TOPICAL SCH (08:28)
[2017-08-25] MEDS ORDERED: LIDOCAINE 2% INJ 20 MG/ML SQ ONE (09:03)
--- NOTE | 2017-08-25 10:29 | P.PN ---
Subjective Progress Note Date: 08/25/17 Principal diagnosis: Right-sided consolidation with pleural base thickening Progress note dated 08/21/2017 This is a patient who has been having issues with mucus plugging. He is undergoing bronchoscopy on the and 18 of August and then again on August 20. He is a previous history of right lobectomy for lung cancer. He was in a team on August 16 having been admitted to the hospital on August 14 falling and injuring his right hip and shoulder. Anyway my partner has done bronchoscopy for mucous plugging and right lung collapse. Today's chest x-ray shows some aeration to the apex of the right lung and is certainly better than yesterday's x-ray. The patient's on good antibiotics. The patient getting nasal O2 at 5 L high flow or BiPAP at 12 and 5 and 40%. Only getting about 500- 550 on the incentive spirometer. Also receiving Mucomyst and bronchodilators. Is getting appointment 9 IV at 20 mL an hour. BAL showed evidence of Pseudomonas aeruginosa and the patient was placed on Fortaz. Also on Zosyn. Progress note dated 08/22/2017 This is a 67-year-old male who was admitted a number of days ago. He was in a team on August 16 [place] been admitted to the hospital on August 14. He apparently fell and injured his right shoulder and right hip. Subsequent to that because a mucous plugging and because of previous of lung cancer surgery on the right lung, the patient underwent bronchoscopy on the and August 18 and then again on August 20. Anyway, today's chest x-ray does show improvement. We've been focusing on deep breathing coughing clearing of secretions incentive spirometer breathing treatments and N-acetylcysteine. Anyway he does look better. He does not need to use of BiPAP as frequently as he is using an can rather stay on nasal prongs. Her saturations are excellent. He is on 5 L. His BAL showed evidence of Pseudomonas aeruginosa and he was placed on his Fortaz. Also remains on Zosyn. Progress note dated 08/23/2017 67-year-old male with history of fall with injury to right shoulder and right hip. The patient was admitted to the hospital August 14 and moved to the ICU on August 16 via an 18 call. Subsequent to that, he underwent bronchoscopy for right lung collapse on August 16 August 18 and then again on August 20. The patient's overall clinical status and x-rays are improving. The patient is out on the floor. Breathing better. Feeling better. Coughing clearing secretions and using the incentive spirometer. He remains on antibiotics and breathing treatments. His bronchoscopy revealed evidence of pseudomonas aeruginosa which is being treated by the antibiotic call for test. Other than that things are moving along well. Progress note dated 08/24/2017 Patient is seen again today in follow-up on the selective care unit. He remains awake and alert in no acute distress. He is breathing better today as compared to yesterday. He continues with a loose nonproductive cough. He is receiving chest physiotherapy. He is maintaining good O2 saturations in the 90s on 5 L of high flow nasal cannula. Chest x-ray is essentially unchanged. There is still pleuroparenchymal changes similar to prior. There is cardiomegaly. There is associated pleural effusion. Again noted the increased right paratracheal density. He has been afebrile. White count improved currently some team 0.5. Hemoglobin 10.0. Creatinine 1.20. Progress note dated 08/25/2017 The patient was seen again today in follow-up on the selective care unit. He is awake and alert in no acute distress. He continues with a loose productive cough. The plan is for bronchoscopy with BAL this morning. The patient is agreeable to the plan. He is maintaining O2 saturations in the 90s on 5 L high flow nasal cannula. Is currently afebrile. White count remains at 20.9. The plan is for 10-14 days of ceftaz per ID. A PICC line was inserted this morning. Objective - Vital Signs Vital signs: Vital Signs Temp 97.4 F L 08/25/17 08:35 Pulse 98 08/25/17 08:35 Resp 18 08/25/17 08:35 BP 120/70 08/25/17 08:35 Pulse Ox 94 L 08/25/17 08:35 Intake & Output 08/24/17 08/25/17 08/25/17 18:59 06:59 18:59 Intake Total 954 420 Output Total 800 Balance 154 420 Weight 148 kg 146.5 kg Intake: IV 420 Sodium Chloride 0.9% 1, 320 000 ml @ 20 mls/hr IV . Q24H [facility] Rx#:[id number] cefTAZidime 2 gm In 100 Sodium Chloride 0.9% 100 ml @ 100 mls/hr IVPB Q8HR [facility] Rx#:[id number] Oral 954 Output: Urine 800 Other: Voiding Method Indwelling Catheter Indwelling Catheter # Bowel Movements 1 - Exam GENERAL EXAM: Alert, comfortable in no apparent distress. HEAD: Normocephalic. EYES: Normal reaction of pupils, equal size. NOSE: Clear with pink turbinates. THROAT: No erythema or exudates. NECK: No masses, no JVD. CHEST: No chest wall deformity. LUNGS: Equal air entry with bilateral scattered rhonchi crackles in the right posterior base. CVS: S1 and S2 normal with no audible mumurs, regular rhythm. ABDOMEN: No hepatosplenomegaly, normal bowel sounds, no guarding or rigidity. SPINE: No scoliosis or deformity SKIN: No rashes CENTRAL NERVOUS SYSTEM: No focal deficits, tone is normal in all 4 extremities. Extremities: There is trace peripheral edema. No clubbing, no cyanosis. Peripheral pulses are intact. - Labs CBC & Chem 7: 08/25/17 06:11 08/25/17 06:11 Labs: Abnormal Lab Results - Last 24 Hours (Table) 08/24/17 08/24/17 08/24/17 Range/Units 11:50 16:52 20:59 WBC (3.8-10.6) k/uL RBC (4.30-5.90) m/uL Hgb (13.0-17.5) gm/dL Hct (39.0-53.0) % MCHC (31.0-37.0) g/dL RDW (11.5-15.5) % Plt Count (150-450) k/uL Neutrophils # (1.3-7.7) k/uL Sodium (137-145) mmol/L Chloride (98-107) mmol/L BUN (9-20) mg/dL Glucose (74-99) mg/dL POC Glucose (mg/dL) 124 H 237 H 216 H (75-99) mg/dL Phosphorus (2.5-4.5) mg/dL 08/25/17 08/25/17 08/25/17 Range/Units 05:55 06:11 06:11 WBC 20.9 H (3.8-10.6) k/uL RBC 4.00 L (4.30-5.90) m/uL Hgb 10.2 L (13.0-17.5) gm/dL Hct 35.0 L (39.0-53.0) % MCHC 29.2 L (31.0-37.0) g/dL RDW 17.0 H (11.5-15.5) % Plt Count 470 H (150-450) k/uL Neutrophils # 16.7 H (1.3-7.7) k/uL Sodium 133 L (137-145) mmol/L Chloride 95 L (98-107) mmol/L BUN 27 H (9-20) mg/dL Glucose 127 H (74-99) mg/dL POC Glucose (mg/dL) 134 H (75-99) mg/dL Phosphorus 5.3 H (2.5-4.5) mg/dL Assessment and Plan Plan: Impression: #1 Acute on chronic systolic congestive heart failure. #2 Atrial fibrillation with varying ventricular response. #3 Acute right lung pneumonia, secondary to pseudomonas aeruginosa. The plan is for 10-14 days of IV ceftaz. PICC line inserted today. Repeat bronchoscopy today. #4 Acute hypoxic respiratory failure secondary to above. #5 Diabetes mellitus, type II. #6 History of CVA. #7 Hypertension. #8 History of lung, non-small cell carcinoma. History of right lower lobectomy #9 Hyperlipidemia. #10 Renal insufficiency. #11 Ventricular tachycardia. #12 Acute fall status post with right hip pain, negative for fracture. Plan: The patient was seen and evaluated by Dr. Bañuelos. Her chest x-ray was reviewed. There is no real improvement. We'll go ahead and plan for another bronchoscopy with BAL today. We'll continue with his current medications. ID has requested 10-14 days of ceftaz. PICC line was inserted this morning. We' ll increase his activity as tolerated. We'll continue with chest physiotherapy and increased use an incentive spirometer and cough and deep breathing exercises. We'll continue to follow. I performed a history and physical on the patient. Lung sounds continue with scattered rhonchi more so on the right with crackles in the right lung base. I discussed the findings along with the assessment and plan of care with my nurse practitioner, Princess Grossman. I agree with the above note.
[2017-08-25] MEDS ORDERED: IV FLUID CONTINUATION 1,000 ML IV ONE (10:59)
[2017-08-25] MEDS ORDERED: KETAMINE 10 MG/ML 20 ML VIAL ONE (11:11)
[2017-08-25] MEDS ORDERED: LIDOCAINE 1% INJ 10MG/ML (20 ML MDV) ONE (11:11)
[2017-08-25] MEDS ORDERED: PROPOFOL 10 MG/ML 20 ML VIAL IV ONE (11:11)
[2017-08-25] MEDS ORDERED: LIDOCAINE 2% INJ 20 MG/ML INTRATRACH ONE (11:20)
[2017-08-25 11:49] LABS: Glucose,Whole Blood 133 mg/dL (75-99)
--- NOTE | 2017-08-25 11:54 | PCN ---
PROCEDURE NOTE PROCEDURE: This is a bronchoscopy, airway examination, therapeutic lavage, BAL right lung. PREOP DIAGNOSIS: Lung collapse/lobar collapse and retained secretions. POSTOP DIAGNOSIS: Lung collapse/lobar collapse and retained secretions. PROCEDURE: There was informed consent. There was universal timeout. The patient's procedure took place in room #1. The operators were Dr. Bañuelos and Dr. Grossman. After the patient was adequately sedated and being fully monitored, the bronchoscope was inserted through the right nostril. It passed through the right nasopharynx into the oropharynx. It then passed into the hypopharynx. There was some dried secretions noted in the hypopharynx, particularly in the piriform sinuses in the area of the false cords. The glottic opening otherwise looked normal. The anterior commissure, true cords, false cords, arytenoids, piriform sinuses, right and left vallecula and epiglottis otherwise appeared normal. After topicalization, the bronchoscope was passed through the glottic opening into the trachea. There was secretions noted in the distal trachea. They were saddling the trachea michelle. The bronchoscope was then taken down the left side. Left upper lobe proper and its 2 segments, the lingula and its 2 segments, and the left lower lobe and its 4 segments had thick yellow-green secretions throughout. There was a moderate amount of bronchitis with erythema and hyperemia of the airways. The mucosa was somewhat friable. There was no dominant mass or lesion. On the right side, the right upper lobe and its 3 segments appeared completely normal. It appeared that the patient previously had either a right lower lobectomy or right middle and right lower lobectomy because of lung cancer. We could not go any further than the distal bronchus intermedius. Next, the bronchoscope was then wedged into that area and the saline was instilled. The lavage was obtained. The patient tolerated the procedure well. The secretions again on this side were thick and yellow. There was hyperemia and erythema of the airways. There was mucosal friability. No dominant mass. The suture line looked good. After the BAL was collected, additional secretions were removed and the bronchoscope was withdrawn. The patient will be recovered. No additional recommendations were made at this time. MMODL / IJN: [id number] /
--- NOTE | 2017-08-25 12:17 | IR ---
PICC LINE PLACEMENT: HISTORY: Infection requiring long-term antibiotic therapy PROCEDURE: Ultrasound and fluoroscopic guidance of PICC line placement. COMPLICATIONS: None ANESTHESIA: 1. 1% Lidocaine locally. FINDINGS/TECHNIQUE: The procedure was explained to the patient. The risks, complications, benefits and alternatives were discussed and any questions were answered. Informed consent was obtained. The patient was placed supine on the fluoroscopic table and prepped and draped in the usual sterile [facility] ion. Utilizing a 21 gauge needle and sonographic and fluoroscopic guidance, access in the vein was achieved and there is placement of a 0.018 guidewire. The vein is patent. A 4-F sheath was placed o janna the guidewire. The guidewire and dilator were removed and a 4-F. PICC line was placed through th e sheath with the tip at the level of the SVC. The sheath was removed, the catheter was flushed and sutured into position. The patient was stable throughout the procedure and remained stable upon disc harge from the Department of Radiology. The vein puncture was patent under ultrasound. A gaspar scale image was obtained to document patency of the vein punctured. All elements of the maximal barrier technique were utilized. FLUOROSCOPY TIME: 0.4 minutes, one image obtained IMPRESSION: Successful PICC line placement under ultrasound and fluoroscopic guidance.
[2017-08-25] MEDS: CYCLOBENZAPRINE 10 MG TAB PO PRN (12:34)
[2017-08-25] MEDS: MEGESTROL 400 MG/10 ML CUP PO SCH (12:36)
[2017-08-25] MEDS: NYSTATIN 100,000 UNIT/ML SUSP 500,000 UNIT/5 ML CUP PO SCH ×4 (12:36→21:02)
[2017-08-25] MEDS: LIDOCAINE 5% PATCH TOPICAL SCH (12:37)
[2017-08-25] MEDS: DILTIAZEM CD 180 MG CAP.ER.24H PO SCH (12:40)
[2017-08-25] MEDS: ALLOPURINOL 100 MG TAB PO SCH (12:40)
[2017-08-25] MEDS: guaiFENesin 600 MG TABLET.ER PO SCH ×2 (12:40→20:59)
[2017-08-25] MEDS: METOLAZONE 5 MG TAB PO SCH (12:40)
[2017-08-25] MEDS: FUROSEMIDE 40 MG TAB PO SCH (12:41)
[2017-08-25] MEDS: METOPROLOL SUCCINATE (ER) 25 MG TAB.ER.24H PO SCH ×2 (12:41→21:01)
[2017-08-25] MEDS: LINAGLIPTIN 5 MG TABLET PO SCH (12:41)
[2017-08-25] MEDS: CITALOPRAM HYDROBROMIDE 20 MG TAB PO SCH (12:41)
[2017-08-25] MEDS: predniSONE 10 MG TAB PO SCH (12:42)
[2017-08-25 14:52] LABS: RBC, Body Fluid 78800 /uL
[2017-08-25] MEDS: HYDROcodone/APAP 7.5-325MG 1 EACH TAB PO PRN ×2 (14:56→23:52)
[2017-08-25] MEDS: LACTATED RINGERS 1,000 ML IV SCH (15:47)
[2017-08-25 16:27] LABS: Glucose,Whole Blood 210 mg/dL (75-99)
--- NOTE | 2017-08-25 19:33 | P.PN ---
Subjective Progress Note Date: 08/25/17 Principal diagnosis: Patient was admitted with is very disparate stress secondary to mucous plugging secondary to Pseudomonas pneumonia. Patient has a long-standing history of COPD with congestive heart failure, and lung cancer. Patient has undergone 5 bronchoscopies during this stay last one was earlier today per Dr. Bañuelos his note suggests there's been some improvement in the pulmonary process. He has been reluctant to participate in physical therapy as well as pulmonary therapy and CPT treatment I did talk with him at length yesterday trying to impress on him the need to participate in his recovery and to improve the outcome patient said that he would try to participate more actively this evening when I evaluated him and he appeared to be moving air much better the lung rushing were almost clear at this time and he seemed to be in better spirits. PICC line was placed we also discussed the likelihood that patient would go to inpatient rehab for at least a week or 2. Objective - Vital Signs Vital signs: Vital Signs Temp 98 F 08/25/17 16:00 Pulse 84 08/25/17 16:38 Resp 18 08/25/17 16:00 BP 115/62 08/25/17 16:00 Pulse Ox 93 L 08/25/17 16:00 Intake & Output 08/25/17 08/25/17 08/26/17 06:59 18:59 06:59 Intake Total 420 340 Output Total 650 Balance 420 -310 Weight 146.5 kg Intake: IV 420 100 Sodium Chloride 0.9% 1, 320 000 ml @ 20 mls/hr IV . Q24H [facility] Rx#:[id number] cefTAZidime 2 gm In 100 Sodium Chloride 0.9% 100 ml @ 100 mls/hr IVPB Q8HR [facility] Rx#:[id number] Oral 240 Output: Urine 650 Other: Voiding Method Indwelling Catheter Indwelling Catheter # Bowel Movements 0 - Exam General: [Patient awake, alert and oriented times 3. Patient in no acute distress.] HEENT: [PERRL. EOMI. No pharyngeal erythema or exudate.] Neck: [No adenopathy.] Cardiac: [Heart regular in rate and rhythm. No S3. No S4. No clicks, rubs. No murmur.] Lungs: Breath sounds were significantly improved respiratory efforts sided improved sats were up a 2-93% on 5 L nasal cannula Abdomen: [No mass. No organomegaly. Bowel sounds presnt and normoactive in all 4 quadrants.] Extremes: [No edema no cyanosis no claudication normal pulses] : [] Musculoskeletal: [No joint erythema, edema or tenderness.] Skin: [No rash.] Neurologic: [No lateralizing deficits. CN II - XII grossly intact.] Lymphatic: [No adenopathy.] - Labs CBC & Chem 7: 08/25/17 06:11 08/25/17 06:11 Labs: Abnormal Lab Results - Last 24 Hours (Table) 08/24/17 08/25/17 08/25/17 Range/Units 20:59 05:55 06:11 WBC (3.8-10.6) k/uL RBC (4.30-5.90) m/uL Hgb (13.0-17.5) gm/dL Hct (39.0-53.0) % MCHC (31.0-37.0) g/dL RDW (11.5-15.5) % Plt Count (150-450) k/uL Neutrophils # (1.3-7.7) k/uL Sodium 133 L (137-145) mmol/L Chloride 95 L (98-107) mmol/L BUN 27 H (9-20) mg/dL Glucose 127 H (74-99) mg/dL POC Glucose (mg/dL) 216 H 134 H (75-99) mg/dL Phosphorus 5.3 H (2.5-4.5) mg/dL 08/25/17 08/25/17 08/25/17 Range/Units 06:11 11:47 16:24 WBC 20.9 H (3.8-10.6) k/uL RBC 4.00 L (4.30-5.90) m/uL Hgb 10.2 L (13.0-17.5) gm/dL Hct 35.0 L (39.0-53.0) % MCHC 29.2 L (31.0-37.0) g/dL RDW 17.0 H (11.5-15.5) % Plt Count 470 H (150-450) k/uL Neutrophils # 16.7 H (1.3-7.7) k/uL Sodium (137-145) mmol/L Chloride (98-107) mmol/L BUN (9-20) mg/dL Glucose (74-99) mg/dL POC Glucose (mg/dL) 133 H 210 H (75-99) mg/dL Phosphorus (2.5-4.5) mg/dL Microbiology - Last 24 Hours (Table) 08/25/17 11:00 Fungal Culture - Preliminary Bronchial Washings - Right 08/25/17 11:00 Acid Fast Bacilli Culture - Preliminary Bronchial Washings - Right 08/25/17 11:00 Bronchial Washings Culture - Preliminary Bronchial Washings - Right Assessment and Plan (1) Pseudomonas aeruginosa infection Narrative/Plan: Pneumonia patient is currently on multidrug antibiotic therapy is also been bronched 5 times Patient is quite ill although he seems to be improving slowly Status: Acute (2) Acute right hip pain Narrative/Plan: Chronic secondary to fall a year ago was up a surgery has been consulted and basically is signed off will get patient up standing with physical therapy will also treat with appropriately pain medicine Status: Acute (3) At risk for readmission to hospital Narrative/Plan: Patient hopefully will be a candidate for rehab in the not so distant future currently doing IV antibiotic therapy PICC line was placed patient was bronched again we are attempting to improve outcome with this many modalities as possible Status: Acute (4) Diabetes Narrative/Plan: Controlled with current meds Status: Acute (5) Hidradenitis suppurativa Narrative/Plan: By history this is been going on for several years and is currently in the best control it's ever been although it still significant drainage is noted Status: Acute Plan: Junito plan as recommended at this time patient is improving slowly we will follow closely Time with Patient: Greater than 30
[2017-08-25 20:57] LABS: Glucose,Whole Blood 244 mg/dL (75-99)
[2017-08-25] MEDS: MULTIVITAMINS, THERA 1 EACH TAB PO SCH (21:02)
[2017-08-25] MEDS: SODIUM CHLORIDE 0.9% 1,000 ML IV SCH (21:02)
--- NOTE | 2017-08-25 21:52 | P.PN ---
Subjective Progress Note Date: 08/25/17 Principal diagnosis: Fall with left hip pain 67-year-old male who is well-known to the infectious disease service with as many hospitalizations as well as his hidradenitis. He's had a couple hospitalizations in the last several months that included atrial fibrillation with nonsustained V. tach. He has underlying cardiac murmur. He's had vertigo and acute renal failure. He's had some time at the extended care facility in the past year but is now home Doing relatively well under the care of his . He was hospitalized earlier this year with a bout of congestive heart failure and is in relatively well since that time. The. The patient was bathing and suffered a fall and now presents with severe right sided hip pain. He's been evaluated by orthopedics. The hidradenitis is now being treated with Humira injections at home. This is on Fridays. This has been occurring for the last couple of months now. There is been decreasing amount of drainage. His skin is becoming less erythematous and inflamed. The amount of drainage is improving The family is pleased that there is showing some improvement given the many year history of lack of improvement. However was still must apply large amounts of dressings on a daily basis to contain his drainage. The patient never became progressively more short of breath. Was transferred to intensive care unit. He's been seen by pulmonary and underwent bronchoscopy for removal of large mucous plugging to the right lung. Patient remains on BiPAP but is more stable at this time. Antimicrobial therapy was initiated with concerns to pneumonia with this pulmonary process. Cultures have revealed Moraxella and pseudomonas aeruginosa He has minimal improved pain today. Pulmonary status again was giving him difficulties, and again had bronchoscopy for a fourth time to remove more mucous plugs. Doing well after the bronchoscopy today. However is certainly with weakness overall. It is stable since his transfer to [facility]. He voices no new complaints. Objective - Vital Signs Vital signs: Vital Signs Temp 98 F 08/25/17 16:00 Pulse 100 08/25/17 20:53 Resp 18 08/25/17 16:00 BP 115/62 08/25/17 16:00 Pulse Ox 93 L 08/25/17 16:00 Intake & Output 08/25/17 08/25/17 08/26/17 06:59 18:59 06:59 Intake Total 420 340 Output Total 650 Balance 420 -310 Weight 146.5 kg Intake: IV 420 100 Sodium Chloride 0.9% 1, 320 000 ml @ 20 mls/hr IV . Q24H [facility]WE[facility] Rx#:[id number] cefTAZidime 2 gm In 100 Sodium Chloride 0.9% 100 ml @ 100 mls/hr IVPB Q8HR [facility]WE[facility] Rx#:[id number] Oral 240 Output: Urine 650 Other: Voiding Method Indwelling Catheter Indwelling Catheter # Bowel Movements 0 - Exam Pleasant 67-year-old gentleman who suffers from obesity who was miserable at this time. BiPAP though is being tolerated. Hip pain is better treated. HEENT: Anicteric conjunctiva are pink and moist nasal mucosa grossly intact without significant lesions, there is no thrush. Neck: The neck is supple without significant lymphadenopathy or thyromegaly. Lungs: There is symmetrical air entry with evidence of crackles at the the right base Some expiratory wheezes are heard. Voice is weak Heart: Irregular with an audible S1 and S2 no S3 soft S4 There is no significant murmur click or rub, PMI was nondisplaced. Abdomen: Obese, Positive bowel sounds soft and nontender without palpable masses or organomegaly. There was no guarding or rebound. Extremities: The upper extremities have excellent pulses they are symmetric, no significant petechiae or telangiectasia. No splinter hemorrhages were noted. The left lower extremity is without significant tenderness at this time. Right lower extremity has severe pain upon manipulation. Any attempt to internally or externally rotate the limb causes him to have severe pain. There is at the chronic drainage without change from last evaluation. He has extensive areas of drainage on the buttocks bilaterally and inner thighs. Neuro: Awake alert oriented to person place and time. There are no acute new gross focal sensory motor deficits. - Labs CBC & Chem 7: 08/25/17 06:11 08/25/17 06:11 Labs: Abnormal Lab Results - Last 24 Hours (Table) 08/25/17 08/25/17 08/25/17 Range/Units 05:55 06:11 06:11 WBC 20.9 H (3.8-10.6) k/uL RBC 4.00 L (4.30-5.90) m/uL Hgb 10.2 L (13.0-17.5) gm/dL Hct 35.0 L (39.0-53.0) % MCHC 29.2 L (31.0-37.0) g/dL RDW 17.0 H (11.5-15.5) % Plt Count 470 H (150-450) k/uL Neutrophils # 16.7 H (1.3-7.7) k/uL Sodium 133 L (137-145) mmol/L Chloride 95 L (98-107) mmol/L BUN 27 H (9-20) mg/dL Glucose 127 H (74-99) mg/dL POC Glucose (mg/dL) 134 H (75-99) mg/dL Phosphorus 5.3 H (2.5-4.5) mg/dL 08/25/17 08/25/17 08/25/17 Range/Units 11:47 16:24 20:54 WBC (3.8-10.6) k/uL RBC (4.30-5.90) m/uL Hgb (13.0-17.5) gm/dL Hct (39.0-53.0) % MCHC (31.0-37.0) g/dL RDW (11.5-15.5) % Plt Count (150-450) k/uL Neutrophils # (1.3-7.7) k/uL Sodium (137-145) mmol/L Chloride (98-107) mmol/L BUN (9-20) mg/dL Glucose (74-99) mg/dL POC Glucose (mg/dL) 133 H 210 H 244 H (75-99) mg/dL Phosphorus (2.5-4.5) mg/dL Microbiology - Last 24 Hours (Table) 08/25/17 11:00 Fungal Culture - Preliminary Bronchial Washings - Right 08/25/17 11:00 Acid Fast Bacilli Culture - Preliminary Bronchial Washings - Right 08/25/17 11:00 Bronchial Washings Culture - Preliminary Bronchial Washings - Right Laboratory Results WBC 20.9 k/uL (3.8-10.6) H 08/25/17 06:11 RBC 4.00 m/uL (4.30-5.90) L 08/25/17 06:11 Hgb 10.2 gm/dL (13.0-17.5) L 08/25/17 06:11 Hct 35.0 % (39.0-53.0) L 08/25/17 06:11 MCV 87.4 fL (80.0-100.0) 08/25/17 06:11 MCH 25.5 pg (25.0-35.0) 08/25/17 06:11 MCHC 29.2 g/dL (31.0-37.0) L 08/25/17 06:11 RDW 17.0 % (11.5-15.5) H 08/25/17 06:11 Plt Count 470 k/uL (150-450) H 08/25/17 06:11 Neutrophils % 80 % 08/25/17 06:11 Lymphocytes % 12 % 08/25/17 06:11 Monocytes % 4 % 08/25/17 06:11 Eosinophils % 2 % 08/25/17 06:11 Basophils % 0 % 08/25/17 06:11 Neutrophils # 16.7 k/uL (1.3-7.7) H 08/25/17 06:11 Lymphocytes # 2.5 k/uL (1.0-4.8) 08/25/17 06:11 Monocytes # 0.9 k/uL (0-1.0) 08/25/17 06:11 Eosinophils # 0.3 k/uL (0-0.7) 08/25/17 06:11 Basophils # 0.1 k/uL (0-0.2) 08/25/17 06:11 Hypochromasia Marked 08/25/17 06:11 Anisocytosis Slight 08/25/17 06:11 Sample Site lbrac 08/16/17 08:01 ABG pH 7.46 (7.35-7.45) H 08/16/17 08:01 ABG pCO2 46 mmHg (35-45) H 08/16/17 08:01 ABG pO2 47 mmHg (83-108) L 08/16/17 08:01 ABG HCO3 32 mmol/L (21-25) H 08/16/17 08:01 ABG Total CO2 34 mmol/L (19-24) H 08/16/17 08:01 ABG O2 Saturation 85.0 % (94-97) L 08/16/17 08:01 ABG Base Excess 8.0 mmol/L 08/16/17 08:01 FiO2 60 % 08/16/17 08:01 Sodium 133 mmol/L (137-145) L 08/25/17 06:11 Potassium 4.6 mmol/L (3.5-5.1) 08/25/17 06:11 Chloride 95 mmol/L (98-107) L 08/25/17 06:11 Carbon Dioxide 30 mmol/L (22-30) 08/25/17 06:11 Anion Gap 8 mmol/L 08/25/17 06:11 BUN 27 mg/dL (9-20) H 08/25/17 06:11 Creatinine 1.10 mg/dL (0.66-1.25) 08/25/17 06:11 Est GFR (MDRD) Af Amer >60 (>60 ml/min/1.73 sqM) 08/25/17 06:11 Est GFR (MDRD) Non-Af >60 (>60 ml/min/1.73 sqM) 08/25/17 06:11 Glucose 127 mg/dL (74-99) H 08/25/17 06:11 POC Glucose (mg/dL) 244 mg/dL (75-99) H 08/25/17 20:54 POC Glu [employer] AYESHA Pierre Quinn 08/25/17 20:[address] Glu mg/dL 143 mg/dL 08/16/17 07:03 Hemoglobin A1c 6.6 % (4.2-6.1) H 08/16/17 07:03 Calcium 8.8 mg/dL (8.4-10.2) 08/25/17 06:11 Phosphorus 5.3 mg/dL (2.5-4.5) H 08/25/17 06:11 Magnesium 1.7 mg/dL (1.6-2.3) 08/25/17 06:11 Iron 29 ug/dL (65-175) L 08/18/17 04:20 TIBC 171 ug/dL (228-460) L 08/18/17 04:20 Iron Saturation 16.96 (15.00-50.00) 08/18/17 04:20 Ferritin 533.4 ng/mL (22.0-322.0) H 08/18/17 04:20 Total Bilirubin 0.4 mg/dL (0.2-1.3) 08/24/17 06:20 AST 14 U/L (17-59) L 08/24/17 06:20 ALT 32 U/L (21-72) 08/24/17 06:20 Alkaline Phosphatase 100 U/L (38-126) 08/24/17 06:20 Total Protein 6.8 g/dL (6.3-8.2) 08/24/17 06:20 Albumin 2.5 g/dL (3.5-5.0) L 08/24/17 06:20 Cortisol 9 ug/dL 08/17/17 04:38 Urine Color Yellow 08/14/17 23:45 Urine Appearance Clear (Clear) 08/14/17 23:45 Urine pH 5.5 (5.0-8.0) 08/14/17 23:45 Ur Specific [place] 1.011 (1.001-1.035) 08/14/17 23:45 Urine Protein Negative (Negative) 08/14/17 23:45 Urine Glucose (UA) Negative (Negative) 08/14/17 23:45 Urine Ketones Negative (Negative) 08/14/17 23:45 Urine Blood Trace (Negative) H 08/14/17 23:45 Urine Nitrite Negative (Negative) 08/14/17 23:45 Urine Bilirubin Negative (Negative) 08/14/17 23:45 Urine Urobilinogen <2.0 mg/dL (<2.0) 08/14/17 23:45 Ur Leukocyte Esterase Negative (Negative) 08/14/17 23:45 Urine RBC 9 /hpf (0-5) H 08/14/17 23:45 Urine WBC 1 /hpf (0-5) 08/14/17 23:45 Hyaline Casts 3 /lpf (0-2) H 08/14/17 23:45 Urine Mucus Rare /hpf (None) H 08/14/17 23:45 Fluid Source Bronchial Wash 08/25/17 11:00 Fluid Color Red 08/25/17 11:00 Fluid Appearance Bloody 08/25/17 11:00 Fluid RBC 76250 /uL 08/25/17 11:00 Fluid Nucleated Cells 6000 /uL 08/25/17 11:00 Fluid Polynuclear WBCs 99 % 08/25/17 11:00 Fluid Mononuclear WBCs 1 % 08/25/17 11:00 Microbiology 08/25/17 11:00 Bronchial Washings - Right Fungal Culture - Preliminary 08/25/17 11:00 Bronchial Washings - Right Acid Fast Bacilli Culture - Preliminary 08/25/17 11:00 Bronchial Washings - Right Bronchial Washings Culture - Preliminary 08/23/17 18:27 Stool Stool Culture - Preliminary Assessment and Plan (1) Fall Status: Acute (2) Acute right hip pain Status: Acute (3) Rib pain on left side Status: Acute (4) Hidradenitis suppurativa Narrative/Plan: 67-year-old male has multiple medical troubles including his history of squamous cell lung cancer fifth being monitored by oncology. He is followed in the infectious disease office for the treatment of his hidradenitis which is being treated currently with Humira. There has been some improvement of his significant disease state but not resolution. The last office visit the and I agreed that we would continue treatment at least until the next quarter. He tolerated this very well. He has had no worsening of his anemia or renal failure . While in hospital his Humira is on hold. Continues to have significant pain to the right hip because of the fall. Orthopedics is following. Orthopedics apparently does not believe that there is a fracture and just has a hyperextension injury. And they will follow as needed. Is noted he is on BiPAP for his respiratory failure from his mucous plugging. For antimicrobial therapy with the isolation of the Moraxella and Pseudomonas, ceftazidime was initiated at 2 g IV piggyback every 8 hours He is having more comfortable at this time. As has noted dressings are not needed just have him on a drainage had and allow the drainage from his large draining sinus tracts to be absorbed into the pads. Severe right hip pain is slightly improved. But is still limiting his ability to sit in transfer The patient's pulmonary status continues to fluctuate, increased secretions today and x-ray without acute change endoscopy bronchoscopy will be performed tomorrow. We'll plan at least 10-14 days of ceftaz and after his last bronched and constantly have asked for a PICC line. Patient's Humira is on hold and this will be discussed and outpatient visits if this is be prudent for further use Status: Acute
[2017-08-26] MEDS: CYCLOBENZAPRINE 10 MG TAB PO PRN (02:11)
[2017-08-26] MEDS: BISMUTH SUBSALICYLATE 4,192 MG/240 ML BOTTLE PO PRN (02:11)
[2017-08-26 06:28] LABS: Glucose,Whole Blood 121 mg/dL (75-99)
[2017-08-26 06:35] LABS: Anisocytosis Slight; Basophils # (A) 0.1 k/uL (0-0.2); Basophils % (A) 0 %; CH 25.9; CHCM 29.8; Eosinophils # (A) 0.2 k/uL (0-0.7); Eosinophils % (A) 1 %; HCT 35.9 % (39.0-53.0); HDW 2.46; HGB 10.2 gm/dL (13.0-17.5); Hypochromasia Marked; Luc # (Auto) 0.17; Luc % (Auto) 1; Lymphocytes # (A) 2.3 k/uL (1.0-4.8); Lymphocytes % (A) 13 %; MCH 24.7 pg (25.0-35.0); MCHC 28.4 g/dL (31.0-37.0); MCV 87.2 fL (80.0-100.0); Mean Platelet Volume 7.7; Monocytes # (A) 0.7 k/uL (0-1.0); Monocytes % (A) 4 %; Neutrophils # (A) 14.4 k/uL (1.3-7.7); Neutrophils % (A) 81 %; RBC 4.11 m/uL (4.30-5.90); RDW 18.4 % (11.5-15.5); WBC 17.9 k/uL (3.8-10.6); WBC (Perox) 17.98
[2017-08-26] MEDS: PANTOPRAZOLE 40 MG TABLET PO SCH (06:43)
[2017-08-26] MEDS: INSULIN LISPRO (humaLOG) 300 UNIT/3 ML VIAL SQ SCH ×4 (06:43→21:23)
[2017-08-26] MEDS: CALCIUM CARB-VIT D 500MG-200UN 1 EACH TAB PO SCH ×2 (06:44→17:49)
[2017-08-26 06:58] LABS: Anion Gap 7 mmol/L; Blood Urea Nitrogen 25 mg/dL (9-20); Calcium 8.6 mg/dL (8.4-10.2); Carbon Dioxide 33 mmol/L (22-30); Chloride 96 mmol/L (98-107); Glucose 105 mg/dL (74-99); Magnesium 1.6 mg/dL (1.6-2.3); Non-African American GFR(MDRD) 58 (>60 ml/min/1.73 sqM); Phosphorous 4.8 mg/dL (2.5-4.5); Potassium 4.7 mmol/L (3.5-5.1); Sodium 136 mmol/L (137-145)
--- NOTE | 2017-08-26 07:07 | XR ---
EXAMINATION TYPE: XR chest 1V portable DATE OF EXAM: 08/26/2017 HISTORY: persistant mucus plug. REFERENCE: Previous study dated 08/25/2017. FINDINGS: There is worsening opacity of the right hemithorax. Heart size is obscured but was enlarged on the previous study. The left lung is relatively clear. IMPRESSION: 1. CARDIOMEGALY. 2. WORSENING RIGHT THORACIC OPACITY LIKELY REPRESENTING A COMBINATION OF AIRSPACE DISEASE AND PLEURAL FLUID.
[2017-08-26] MEDS: SYMBICORT 160-4.5 MCG INHALER INHALATION SCH ×2 (08:36→20:15)
[2017-08-26] MEDS: IPRATROPIUM-ALBUTEROL 3 ML NEB INHALATION SCH ×4 (08:36→20:15)
[2017-08-26] MEDS: ALLOPURINOL 100 MG TAB PO SCH (09:10)
[2017-08-26] MEDS: CITALOPRAM HYDROBROMIDE 20 MG TAB PO SCH (09:11)
[2017-08-26] MEDS: guaiFENesin 600 MG TABLET.ER PO SCH ×2 (09:11→20:28)
[2017-08-26] MEDS: MEGESTROL 400 MG/10 ML CUP PO SCH (09:12)
[2017-08-26] MEDS: METOPROLOL SUCCINATE (ER) 25 MG TAB.ER.24H PO SCH ×2 (09:12→20:27)
[2017-08-26] MEDS: predniSONE 10 MG TAB PO SCH (09:12)
[2017-08-26] MEDS: METOLAZONE 5 MG TAB PO SCH (09:12)
[2017-08-26] MEDS: LINAGLIPTIN 5 MG TABLET PO SCH (09:12)
[2017-08-26] MEDS: LIDOCAINE 5% PATCH TOPICAL SCH (09:13)
[2017-08-26] MEDS: DILTIAZEM CD 180 MG CAP.ER.24H PO SCH (09:13)
[2017-08-26] MEDS: FUROSEMIDE 40 MG TAB PO SCH (09:18)
[2017-08-26] MEDS: BACITRACIN 500 UNIT/GM OINT 28.4 GM TUBE TOPICAL SCH (09:19)
[2017-08-26] MEDS: NYSTATIN 100,000 UNIT/ML SUSP 500,000 UNIT/5 ML CUP PO SCH ×4 (09:20→20:28)
[2017-08-26 11:43] LABS: Glucose,Whole Blood 144 mg/dL (75-99)
[2017-08-26] MEDS: HYDROcodone/APAP 7.5-325MG 1 EACH TAB PO PRN (11:49)
--- NOTE | 2017-08-26 11:56 | P.PN ---
Subjective Progress Note Date: 08/26/17 Principal diagnosis: Patient was admitted with is very respiratory distress secondary to mucous plugging secondary to Pseudomonas pneumonia. Patient has a long-standing history of COPD with congestive heart failure, and lung cancer. Patient has undergone 4 bronchoscopies during this stay last one was earlier today per Dr. Bañuelos his note suggests there's been some improvement in the pulmonary process. This patient has been reluctant to participate in physical therapy as well as pulmonary therapy and CPT treatment I did talk with him at length yesterday trying to impress on him the need to participate in his recovery and to improve the outcome patient said that he would try to participate more actively this evening when I evaluated him and he appeared to be moving air much better the lung rushing were almost clear at this time and he seemed to be in better spirits. PICC line was placed we also discussed the likelihood that patient would go to inpatient rehab for at least a week or 2. Patient is sleeping but arousable this morning pulse ox today was 98% on 4 L nasal cannula is 02 was turned down to 3 L per nasal cannula. Patient is improving slowly, respiratory effort is improved, patient still complains of overall weakness fatigue. History of COPD, lung cancer, congestive heart failure, and chronic hidradenitis patient has been undergoing trial of Humira given his immune status and pulmonary status which considers stopping this due to the historical side effect of developing recurrent pulmonary infection his immune system is already compromised secondary to his other past histories which also include diabetes. Currently being treated for Pseudomonas pneumonia as well we'll continue to follow closely note patient underwent fourth bronchoscopy yesterday and seems to be improved this morning Objective - Vital Signs Vital signs: Vital Signs Temp 96.9 F L 08/26/17 08:00 Pulse 96 08/26/17 08:46 Resp 20 08/26/17 08:00 BP 107/66 08/26/17 08:00 Pulse Ox 95 08/26/17 08:00 Intake & Output 08/25/17 08/26/17 08/26/17 18:59 06:59 18:59 Intake Total 340 200 Output Total 650 1250 1999 Balance -310 1250 -1800 Intake: IV 100 Oral 240 200 Output: Urine 650 1250 1999 Other: Voiding Method Indwelling Catheter Indwelling Catheter Indwelling Catheter # Bowel Movements 0 1 - Exam General: [Patient awake, alert and oriented times 3. Patient in no acute distress.] HEENT: [PERRL. EOMI. No pharyngeal erythema or exudate.] Neck: [No adenopathy.] Cardiac: [Heart regular in rate and rhythm. No S3. No S4. No clicks, rubs. No murmur.] Lungs: Breath sounds were significantly improved respiratory efforts sided improved sats were up a 2-93% on 5 L nasal cannula Abdomen: [No mass. No organomegaly. Bowel sounds presnt and normoactive in all 4 quadrants.] Extremes: [No edema no cyanosis no claudication normal pulses] : [] Musculoskeletal: [No joint erythema, edema or tenderness.] Skin: [No rash.] Neurologic: [No lateralizing deficits. CN II - XII grossly intact.] Lymphatic: [No adenopathy.] - Labs CBC & Chem 7: 08/26/17 06:04 08/26/17 06:04 Labs: Abnormal Lab Results - Last 24 Hours (Table) 08/25/17 08/25/17 08/25/17 Range/Units 11:47 16:24 20:54 WBC (3.8-10.6) k/uL RBC (4.30-5.90) m/uL Hgb (13.0-17.5) gm/dL Hct (39.0-53.0) % MCH (25.0-35.0) pg MCHC (31.0-37.0) g/dL RDW (11.5-15.5) % Plt Count (150-450) k/uL Neutrophils # (1.3-7.7) k/uL Sodium (137-145) mmol/L Chloride (98-107) mmol/L Carbon Dioxide (22-30) mmol/L BUN (9-20) mg/dL Glucose (74-99) mg/dL POC Glucose (mg/dL) 133 H 210 H 244 H (75-99) mg/dL Phosphorus (2.5-4.5) mg/dL 08/26/17 08/26/17 08/26/17 Range/Units 06:04 06:04 06:12 WBC 17.9 H (3.8-10.6) k/uL RBC 4.11 L (4.30-5.90) m/uL Hgb 10.2 L (13.0-17.5) gm/dL Hct 35.9 L (39.0-53.0) % MCH 24.7 L (25.0-35.0) pg MCHC 28.4 L (31.0-37.0) g/dL RDW 18.4 H (11.5-15.5) % Plt Count 476 H (150-450) k/uL Neutrophils # 14.4 H (1.3-7.7) k/uL Sodium 136 L (137-145) mmol/L Chloride 96 L (98-107) mmol/L Carbon Dioxide 33 H (22-30) mmol/L BUN 25 H (9-20) mg/dL Glucose 105 H (74-99) mg/dL POC Glucose (mg/dL) 121 H (75-99) mg/dL Phosphorus 4.8 H (2.5-4.5) mg/dL 08/26/17 Range/Units 11:34 WBC (3.8-10.6) k/uL RBC (4.30-5.90) m/uL Hgb (13.0-17.5) gm/dL Hct (39.0-53.0) % MCH (25.0-35.0) pg MCHC (31.0-37.0) g/dL RDW (11.5-15.5) % Plt Count (150-450) k/uL Neutrophils # (1.3-7.7) k/uL Sodium (137-145) mmol/L Chloride (98-107) mmol/L Carbon Dioxide (22-30) mmol/L BUN (9-20) mg/dL Glucose (74-99) mg/dL POC Glucose (mg/dL) 144 H (75-99) mg/dL Phosphorus (2.5-4.5) mg/dL Microbiology - Last 24 Hours (Table) 08/25/17 11:00 Acid Fast Bacilli Smear - Final Bronchial Washings - Right Acid Fast Bacilli Culture - Preliminary 08/25/17 11:00 Gram Stain - Preliminary Bronchial Washings - Right Bronchial Washings Culture - Preliminary 08/25/17 11:00 Fungal Culture - Preliminary Bronchial Washings - Right Assessment and Plan (1) Pseudomonas aeruginosa infection Status: Acute (2) Acute right hip pain Status: Acute (3) At risk for readmission to hospital Status: Acute (4) Diabetes Status: Acute (5) Hidradenitis suppurativa Status: Acute Plan: plan as recommended at this time patient is improving slowly we will follow closely Time with Patient: Greater than 30
--- NOTE | 2017-08-26 12:07 | P.PN ---
Subjective Progress Note Date: 08/26/17 (Nephrology) Principal diagnosis: Acute kidney injury Lying in bed from, no acute distress Making good amount of urine, breathing better as per him. Objective - Vital Signs Vital signs: Vital Signs Temp 96.9 F L 08/26/17 08:00 Pulse 96 08/26/17 08:46 Resp 20 08/26/17 08:00 BP 107/66 08/26/17 08:00 Pulse Ox 95 08/26/17 08:00 Intake & Output 08/25/17 08/26/17 08/26/17 18:59 06:59 18:59 Intake Total 340 200 Output Total 650 1250 2000 Balance -667 -4200 1800 Intake: IV 100 Oral 240 200 Output: Urine 650 1250 2000 Other: Voiding Method Indwelling Catheter Indwelling Catheter Indwelling Catheter # Bowel Movements 0 1 - Exam Lying in bed no acute distress S1 and S2 heard Decreased breath sounds on the right side of the chest Trace edema - Labs CBC & Chem 7: 08/26/17 06:04 08/26/17 06:04 Labs: Abnormal Lab Results - Last 24 Hours (Table) 08/25/17 08/25/17 08/25/17 Range/Units 11:47 16:24 20:54 WBC (3.8-10.6) k/uL RBC (4.30-5.90) m/uL Hgb (13.0-17.5) gm/dL Hct (39.0-53.0) % MCH (25.0-35.0) pg MCHC (31.0-37.0) g/dL RDW (11.5-15.5) % Plt Count (150-450) k/uL Neutrophils # (1.3-7.7) k/uL Sodium (137-145) mmol/L Chloride (98-107) mmol/L Carbon Dioxide (22-30) mmol/L BUN (9-20) mg/dL Glucose (74-99) mg/dL POC Glucose (mg/dL) 133 H 210 H 244 H (75-99) mg/dL Phosphorus (2.5-4.5) mg/dL 08/26/17 08/26/17 08/26/17 Range/Units 06:04 06:04 06:12 WBC 17.9 H (3.8-10.6) k/uL RBC 4.11 L (4.30-5.90) m/uL Hgb 10.2 L (13.0-17.5) gm/dL Hct 35.9 L (39.0-53.0) % MCH 24.7 L (25.0-35.0) pg MCHC 28.4 L (31.0-37.0) g/dL RDW 18.4 H (11.5-15.5) % Plt Count 476 H (150-450) k/uL Neutrophils # 14.4 H (1.3-7.7) k/uL Sodium 136 L (137-145) mmol/L Chloride 96 L (98-107) mmol/L Carbon Dioxide 33 H (22-30) mmol/L BUN 25 H (9-20) mg/dL Glucose 105 H (74-99) mg/dL POC Glucose (mg/dL) 121 H (75-99) mg/dL Phosphorus 4.8 H (2.5-4.5) mg/dL 08/26/17 Range/Units 11:34 WBC (3.8-10.6) k/uL RBC (4.30-5.90) m/uL Hgb (13.0-17.5) gm/dL Hct (39.0-53.0) % MCH (25.0-35.0) pg MCHC (31.0-37.0) g/dL RDW (11.5-15.5) % Plt Count (150-450) k/uL Neutrophils # (1.3-7.7) k/uL Sodium (137-145) mmol/L Chloride (98-107) mmol/L Carbon Dioxide (22-30) mmol/L BUN (9-20) mg/dL Glucose (74-99) mg/dL POC Glucose (mg/dL) 144 H (75-99) mg/dL Phosphorus (2.5-4.5) mg/dL Microbiology - Last 24 Hours (Table) 08/25/17 11:00 Acid Fast Bacilli Smear - Final Bronchial Washings - Right Acid Fast Bacilli Culture - Preliminary 08/25/17 11:00 Gram Stain - Preliminary Bronchial Washings - Right Bronchial Washings Culture - Preliminary 08/25/17 11:00 Fungal Culture - Preliminary Bronchial Washings - Right Assessment and Plan Plan: Impression: 1. Acute kidney injury secondary to prerenal process from overdiuresis, creatinine improving. 2. CKD stage III baseline creatinine around 1.4 MG per DL currently better than baseline. 3. Small cell lung cancer status post lobectomy 4. Metabolic alkalosis 5. Hypervolemic hyponatremia. Rule out thiazide-induced hyponatremia. Recommendations: 1. Continue diuretics at current regimen, decrease metolazone from 5 mg daily to 2.5 mg every other day. 2. Renal functions better than baseline. 3. Consider thoracentesis for right-sided pleural effusion.
[2017-08-26] MEDS: LOPERAMIDE 2 MG CAP PO PRN (12:47)
[2017-08-26] MEDS: METOLAZONE 2.5 MG TAB PO SCH (12:47)
--- NOTE | 2017-08-26 13:48 | P.PN ---
Subjective Progress note dated 08/21/2017 This is a patient who has been having issues with mucus plugging. He is undergoing bronchoscopy on the and 18 of August and then again on August 20. He is a previous history of right lobectomy for lung cancer. He was in a team on August 16 having been admitted to the hospital on August 14 falling and injuring his right hip and shoulder. Anyway my partner has done bronchoscopy for mucous plugging and right lung collapse. Today's chest x-ray shows some aeration to the apex of the right lung and is certainly better than yesterday's x-ray. The patient's on good antibiotics. The patient getting nasal O2 at 5 L high flow or BiPAP at 12 and 5 and 40%. Only getting about 500- 550 on the incentive spirometer. Also receiving Mucomyst and bronchodilators. Is getting appointment 9 IV at 20 mL an hour. BAL showed evidence of Pseudomonas aeruginosa and the patient was placed on Fortaz. Also on Zosyn. Progress note dated 08/22/2017 This is a 67-year-old male who was admitted a number of days ago. He was in a team on August 16 [place] been admitted to the hospital on August 14. He apparently fell and injured his right shoulder and right hip. Subsequent to that because a mucous plugging and because of previous of lung cancer surgery on the right lung, the patient underwent bronchoscopy on the and August 18 and then again on August 20. Anyway, today's chest x-ray does show improvement. We've been focusing on deep breathing coughing clearing of secretions incentive spirometer breathing treatments and N-acetylcysteine. Anyway he does look better. He does not need to use of BiPAP as frequently as he is using an can rather stay on nasal prongs. Her saturations are excellent. He is on 5 L. His BAL showed evidence of Pseudomonas aeruginosa and he was placed on his Fortaz. Also remains on Zosyn. Progress note dated 08/23/2017 67-year-old male with history of fall with injury to right shoulder and right hip. The patient was admitted to the hospital August 14 and moved to the ICU on August 16 via an 18 call. Subsequent to that, he underwent bronchoscopy for right lung collapse on August 16 August 18 and then again on August 20. The patient's overall clinical status and x-rays are improving. The patient is out on the floor. Breathing better. Feeling better. Coughing clearing secretions and using the incentive spirometer. He remains on antibiotics and breathing treatments. His bronchoscopy revealed evidence of pseudomonas aeruginosa which is being treated by the antibiotic call for test. Other than that things are moving along well. Progress note dated 08/26/2017 67-year-old male who was initially admitted to the hospital on August 14 and moved to the ICU on August 16 via an A team call. The patient developed right lung collapse and had bronchoscopy by my partner on August 16 and as well as August 20. Yesterday, to continue the endoscopy suite get another bronchoscopy on him. His secretion load was much less yesterday than it was on previous bronchoscopies. Nonetheless he still had last secretions and there were suctioned. A sample was sent to laboratory for analysis. He's had a number different positive cultures including Pseudomonas from the [place] Moraxella from the [place] as well as E. coli and group B strep from the wound cultures. Overall the patient's chest x-ray my opinion is about the same. Clinically he is much improved. The patient will likely need some sort of inpatient rehab. He seems to be getting stronger. He has less respiratory issues. Coughing but not producing a lot of phlegm. Still uses his incentive spirometer every hour and getting mechanical percussion to the right lower lobe. Objective - Vital Signs Vital signs: Vital Signs Temp 97.5 F L 08/26/17 12:00 Pulse 94 08/26/17 13:23 Resp 19 08/26/17 12:00 BP 118/63 08/26/17 12:00 Pulse Ox 95 08/26/17 12:00 Intake & Output 08/25/17 08/26/17 08/26/17 18:59 06:59 18:59 Intake Total 340 400 Output Total 650 1250 1999 Balance -310 -1250 -1600 Intake: IV 100 Oral 240 400 Output: Urine 650 1250 1999 Other: Voiding Method Indwelling Catheter Indwelling Catheter Indwelling Catheter # Bowel Movements 0 1 - Exam No acute distress, oriented 3 HEENT examination is unremarkable. Mucous membranes are moist. No oral lesions. Neck supple. Full range of motion. No adenopathy or thyromegaly. Neck veins are flat. Cardiovascular examination reveals regular rhythm rate. S1-S2 normal. No S3 or S4. No discernible murmur. Lungs reveal diminished breath sounds on the right compared to the left. The patient also has symptoms diffuse rhonchi. Some crackles are also noted on the right side. Left breath sounds are mostly clear.. Abdomen soft bowel sounds are heard. No masses or tenderness. Extremities are intact. No cyanosis clubbing or edema. Skin is without rash or lesion. Neurologic examination is brief but nonfocal. - Labs CBC & Chem 7: 08/26/17 06:04 08/26/17 06:04 Labs: Abnormal Lab Results - Last 24 Hours (Table) 08/25/17 08/25/17 08/26/17 Range/Units 16:24 20:54 06:04 WBC (3.8-10.6) k/uL RBC (4.30-5.90) m/uL Hgb (13.0-17.5) gm/dL Hct (39.0-53.0) % MCH (25.0-35.0) pg MCHC (31.0-37.0) g/dL RDW (11.5-15.5) % Plt Count (150-450) k/uL Neutrophils # (1.3-7.7) k/uL Sodium 136 L (137-145) mmol/L Chloride 96 L (98-107) mmol/L Carbon Dioxide 33 H (22-30) mmol/L BUN 25 H (9-20) mg/dL Glucose 105 H (74-99) mg/dL POC Glucose (mg/dL) 210 H 244 H (75-99) mg/dL Phosphorus 4.8 H (2.5-4.5) mg/dL 08/26/17 08/26/17 08/26/17 Range/Units 06:04 06:12 11:34 WBC 17.9 H (3.8-10.6) k/uL RBC 4.11 L (4.30-5.90) m/uL Hgb 10.2 L (13.0-17.5) gm/dL Hct 35.9 L (39.0-53.0) % MCH 24.7 L (25.0-35.0) pg MCHC 28.4 L (31.0-37.0) g/dL RDW 18.4 H (11.5-15.5) % Plt Count 476 H (150-450) k/uL Neutrophils # 14.4 H (1.3-7.7) k/uL Sodium (137-145) mmol/L Chloride (98-107) mmol/L Carbon Dioxide (22-30) mmol/L BUN (9-20) mg/dL Glucose (74-99) mg/dL POC Glucose (mg/dL) 121 H 144 H (75-99) mg/dL Phosphorus (2.5-4.5) mg/dL Microbiology - Last 24 Hours (Table) 08/25/17 11:00 Acid Fast Bacilli Smear - Final Bronchial Washings - Right Acid Fast Bacilli Culture - Preliminary 08/25/17 11:00 Gram Stain - Preliminary Bronchial Washings - Right Bronchial Washings Culture - Preliminary 08/25/17 11:00 Fungal Culture - Preliminary Bronchial Washings - Right Assessment and Plan (1) Acute right hip pain Status: Acute (2) Diabetes Status: Acute (3) Fall Status: Acute (4) Acute on chronic systolic heart failure Status: Acute (5) Atrial fibrillation with rapid ventricular response Status: Acute (6) Benign paroxysmal positional vertigo Status: Acute (7) Brainstem stroke Status: Acute (8) Congestive heart failure Status: Acute (9) Diastolic CHF, acute on chronic Status: Acute (10) HTN (hypertension) Status: Acute (11) History of lung cancer Status: Acute (12) Hyperlipemia Status: Acute (13) Non-small cell carcinoma of lung Status: Acute (14) Pneumonia Status: Acute (15) Renal insufficiency Status: Acute (16) V-tach Status: Acute (17) Type 2 diabetes mellitus without complications Status: Chronic Plan: Plan The patient will continue working on incentive spirometry bronchodilators coughing deep breathing and clearing of secretions. The patient's medications are appropriate. We'll continue to follow closely. He may need bronchoscopy in the future. No additional recommendations are made. Antibiotics are appropriate. Plan dated 08/22/2017 The patient continues to show improvement both clinically and radiographically. He continues with incentive spirometer every hour while awake breathing treatments mucolytic's deep breathing coughing and clearing of secretions. I don't believe he needs bronchoscopy at this time. He doesn't need to be on BiPAP 16 hours a day. We'll not alter his fluids based on whether or not he is or is not on BiPAP. We'll continue to follow closely. Plan dated 08/23/2017 Meds labs and x-rays are all reviewed. The patient seemed be clinically improved. Chest x-ray my in my opinion is improved. Clinically he is much better. We'll continue to follow. Discharge planning underway. No additional recommendations are made. Medications are reviewed. Plan dated 08/26/2017. X-rays reviewed. Labs are reviewed. Medications are reviewed. I talked to the patient and the patient's today. He may be at baseline. We'll go back and see we can look at old x-rays for comparison. We'll await the results of most recent bronchoscopy. In addition, if infectious disease is not involved , we'll have him see the patient. Time with Patient: Less than 30
[2017-08-26 16:55] LABS: Glucose,Whole Blood 202 mg/dL (75-99)
[2017-08-26] MEDS: SODIUM CHLORIDE 0.9% 1,000 ML IV SCH (17:51)
[2017-08-26] MEDS: LACTATED RINGERS 1,000 ML IV SCH (20:24)
[2017-08-26] MEDS: MULTIVITAMINS, THERA 1 EACH TAB PO SCH (20:28)
[2017-08-26 21:35] LABS: Glucose,Whole Blood 175 mg/dL (75-99)
[2017-08-27] MEDS: HYDROcodone/APAP 7.5-325MG 1 EACH TAB PO PRN ×3 (00:15→17:15)
[2017-08-27] MEDS: CYCLOBENZAPRINE 10 MG TAB PO PRN (00:30)
--- NOTE | 2017-08-27 00:31 | P.PN ---
Subjective Progress Note Date: 08/26/17 Principal diagnosis: Fall with left hip pain 67-year-old male who is well-known to the infectious disease service with as many hospitalizations as well as his hidradenitis. He's had a couple hospitalizations in the last several months that included atrial fibrillation with nonsustained V. tach. He has underlying cardiac murmur. He's had vertigo and acute renal failure. He's had some time at the extended care facility in the past year but is now home Doing relatively well under the care of his . He was hospitalized earlier this year with a bout of congestive heart failure and is in relatively well since that time. The. The patient was bathing and suffered a fall and now presents with severe right sided hip pain. He's been evaluated by orthopedics. The hidradenitis is now being treated with Humira injections at home. This is on Fridays. This has been occurring for the last couple of months now. There is been decreasing amount of drainage. His skin is becoming less erythematous and inflamed. The amount of drainage is improving The family is pleased that there is showing some improvement given the many year history of lack of improvement. However was still must apply large amounts of dressings on a daily basis to contain his drainage. The patient never became progressively more short of breath. Was transferred to intensive care unit. He's been seen by pulmonary and underwent bronchoscopy for removal of large mucous plugging to the right lung. Patient remains on BiPAP but is more stable at this time. Antimicrobial therapy was initiated with concerns to pneumonia with this pulmonary process. Cultures have revealed Moraxella and pseudomonas aeruginosa He has minimal improved pain today. Pulmonary status again was giving him difficulties, and again had bronchoscopy for a fourth time to remove more mucous plugs. Doing well after the bronchoscopy today. However is certainly with weakness overall. It is stable since his transfer to [facility]. He voices no new complaints. Objective - Vital Signs Vital signs: Vital Signs Temp 97.1 F L 08/26/17 20:00 Pulse 88 08/26/17 20:30 Resp 20 08/26/17 20:00 BP 118/68 08/26/17 20:00 Pulse Ox 94 L 08/26/17 20:00 Intake & Output 08/26/17 08/26/17 08/27/17 06:59 18:59 06:59 Intake Total 810 Output Total 1250 3200 Balance -1250 -2390 Intake: IV 230 Sodium Chloride 0.9% 1, 180 000 ml @ 20 mls/hr IV . Q24H [facility] Rx#:[id number] cefTAZidime 2 gm In 50 Sodium Chloride 0.9% 100 ml @ 100 mls/hr IVPB Q8HR [facility] Rx#:[id number] Oral 580 Output: Urine 1250 3200 Other: Voiding Method Indwelling Catheter Indwelling Catheter Indwelling Catheter # Bowel Movements 1 - Exam Pleasant 67-year-old gentleman who suffers from obesity who was miserable at this time. BiPAP though is being tolerated. Hip pain is better treated. HEENT: Anicteric conjunctiva are pink and moist nasal mucosa grossly intact without significant lesions, there is no thrush. Neck: The neck is supple without significant lymphadenopathy or thyromegaly. Lungs: There is symmetrical air entry with evidence of crackles at the the right base Some expiratory wheezes are heard. Voice is weak Heart: Irregular with an audible S1 and S2 no S3 soft S4 There is no significant murmur click or rub, PMI was nondisplaced. Abdomen: Obese, Positive bowel sounds soft and nontender without palpable masses or organomegaly. There was no guarding or rebound. Extremities: The upper extremities have excellent pulses they are symmetric, no significant petechiae or telangiectasia. No splinter hemorrhages were noted. The left lower extremity is without significant tenderness at this time. Right lower extremity has severe pain upon manipulation. Any attempt to internally or externally rotate the limb causes him to have severe pain. There is at the chronic drainage without change from last evaluation. He has extensive areas of drainage on the buttocks bilaterally and inner thighs. Neuro: Awake alert oriented to person place and time. There are no acute new gross focal sensory motor deficits. - Labs CBC & Chem 7: 08/26/17 06:04 08/26/17 06:04 Labs: Abnormal Lab Results - Last 24 Hours (Table) 08/26/17 08/26/17 08/26/17 Range/Units 06:04 06:04 06:12 WBC 17.9 H (3.8-10.6) k/uL RBC 4.11 L (4.30-5.90) m/uL Hgb 10.2 L (13.0-17.5) gm/dL Hct 35.9 L (39.0-53.0) % MCH 24.7 L (25.0-35.0) pg MCHC 28.4 L (31.0-37.0) g/dL RDW 18.4 H (11.5-15.5) % Plt Count 476 H (150-450) k/uL Neutrophils # 14.4 H (1.3-7.7) k/uL Sodium 136 L (137-145) mmol/L Chloride 96 L (98-107) mmol/L Carbon Dioxide 33 H (22-30) mmol/L BUN 25 H (9-20) mg/dL Glucose 105 H (74-99) mg/dL POC Glucose (mg/dL) 121 H (75-99) mg/dL Phosphorus 4.8 H (2.5-4.5) mg/dL 08/26/17 08/26/17 08/26/17 Range/Units 11:34 16:47 21:06 WBC (3.8-10.6) k/uL RBC (4.30-5.90) m/uL Hgb (13.0-17.5) gm/dL Hct (39.0-53.0) % MCH (25.0-35.0) pg MCHC (31.0-37.0) g/dL RDW (11.5-15.5) % Plt Count (150-450) k/uL Neutrophils # (1.3-7.7) k/uL Sodium (137-145) mmol/L Chloride (98-107) mmol/L Carbon Dioxide (22-30) mmol/L BUN (9-20) mg/dL Glucose (74-99) mg/dL POC Glucose (mg/dL) 144 H 202 H 175 H (75-99) mg/dL Phosphorus (2.5-4.5) mg/dL Microbiology - Last 24 Hours (Table) 08/23/17 18:27 Stool Culture - Final Stool 08/25/17 11:00 Acid Fast Bacilli Smear - Final Bronchial Washings - Right Acid Fast Bacilli Culture - Preliminary 08/25/17 11:00 Gram Stain - Preliminary Bronchial Washings - Right Bronchial Washings Culture - Preliminary Laboratory Results WBC 17.9 k/uL (3.8-10.6) H 08/26/17 06:04 RBC 4.11 m/uL (4.30-5.90) L 08/26/17 06:04 Hgb 10.2 gm/dL (13.0-17.5) L 08/26/17 06:04 Hct 35.9 % (39.0-53.0) L 08/26/17 06:04 MCV 87.2 fL (80.0-100.0) 08/26/17 06:04 MCH 24.7 pg (25.0-35.0) L 08/26/17 06:04 MCHC 28.4 g/dL (31.0-37.0) L 08/26/17 06:04 RDW 18.4 % (11.5-15.5) H 08/26/17 06:04 Plt Count 476 k/uL (150-450) H 08/26/17 06:04 Neutrophils % 81 % 08/26/17 06:04 Lymphocytes % 13 % 08/26/17 06:04 Monocytes % 4 % 08/26/17 06:04 Eosinophils % 1 % 08/26/17 06:04 Basophils % 0 % 08/26/17 06:04 Neutrophils # 14.4 k/uL (1.3-7.7) H 08/26/17 06:04 Lymphocytes # 2.3 k/uL (1.0-4.8) 08/26/17 06:04 Monocytes # 0.7 k/uL (0-1.0) 08/26/17 06:04 Eosinophils # 0.2 k/uL (0-0.7) 08/26/17 06:04 Basophils # 0.1 k/uL (0-0.2) 08/26/17 06:04 Hypochromasia Marked 08/26/17 06:04 Anisocytosis Slight 08/26/17 06:04 Sample Site lbrac 08/16/17 08:01 ABG pH 7.46 (7.35-7.45) H 08/16/17 08:01 ABG pCO2 46 mmHg (35-45) H 08/16/17 08:01 ABG pO2 47 mmHg (83-108) L 08/16/17 08:01 ABG HCO3 32 mmol/L (21-25) H 08/16/17 08:01 ABG Total CO2 34 mmol/L (19-24) H 08/16/17 08:01 ABG O2 Saturation 85.0 % (94-97) L 08/16/17 08:01 ABG Base Excess 8.0 mmol/L 08/16/17 08:01 FiO2 60 % 08/16/17 08:01 Sodium 136 mmol/L (137-145) L 08/26/17 06:04 Potassium 4.7 mmol/L (3.5-5.1) 08/26/17 06:04 Chloride 96 mmol/L (98-107) L 08/26/17 06:04 Carbon Dioxide 33 mmol/L (22-30) H 08/26/17 06:04 Anion Gap 7 mmol/L 08/26/17 06:04 BUN 25 mg/dL (9-20) H 08/26/17 06:04 Creatinine 1.23 mg/dL (0.66-1.25) 08/26/17 06:04 Est GFR (MDRD) Af Amer >60 (>60 ml/min/1.73 sqM) 08/26/17 06:04 Est GFR (MDRD) Non-Af 58 (>60 ml/min/1.73 sqM) 08/26/17 06:04 Glucose 105 mg/dL (74-99) H 08/26/17 06:04 POC Glucose (mg/dL) 175 mg/dL (75-99) H 08/26/17 21:06 POC Glu Accounts Manager AYESHA Pierre Quinn 08/26/17 21:[address] Glu mg/dL 143 mg/dL 08/16/17 07:03 Hemoglobin A1c 6.6 % (4.2-6.1) H 08/16/17 07:03 Calcium 8.6 mg/dL (8.4-10.2) 08/26/17 06:04 Phosphorus 4.8 mg/dL (2.5-4.5) H 08/26/17 06:04 Magnesium 1.6 mg/dL (1.6-2.3) 08/26/17 06:04 Iron 29 ug/dL (65-175) L 08/18/17 04:20 TIBC 171 ug/dL (228-460) L 08/18/17 04:20 Iron Saturation 16.96 (15.00-50.00) 08/18/17 04:20 Ferritin 533.4 ng/mL (22.0-322.0) H 08/18/17 04:20 Total Bilirubin 0.4 mg/dL (0.2-1.3) 08/24/17 06:20 AST 14 U/L (17-59) L 08/24/17 06:20 ALT 32 U/L (21-72) 08/24/17 06:20 Alkaline Phosphatase 100 U/L (38-126) 08/24/17 06:20 Total Protein 6.8 g/dL (6.3-8.2) 08/24/17 06:20 Albumin 2.5 g/dL (3.5-5.0) L 08/24/17 06:20 Cortisol 9 ug/dL 08/17/17 04:38 Urine Color Yellow 08/14/17 23:45 Urine Appearance Clear (Clear) 08/14/17 23:45 Urine pH 5.5 (5.0-8.0) 08/14/17 23:45 Ur Specific [place] 1.011 (1.001-1.035) 08/14/17 23:45 Urine Protein Negative (Negative) 08/14/17 23:45 Urine Glucose (UA) Negative (Negative) 08/14/17 23:45 Urine Ketones Negative (Negative) 08/14/17 23:45 Urine Blood Trace (Negative) H 08/14/17 23:45 Urine Nitrite Negative (Negative) 08/14/17 23:45 Urine Bilirubin Negative (Negative) 08/14/17 23:45 Urine Urobilinogen <2.0 mg/dL (<2.0) 08/14/17 23:45 Ur Leukocyte Esterase Negative (Negative) 08/14/17 23:45 Urine RBC 9 /hpf (0-5) H 08/14/17 23:45 Urine WBC 1 /hpf (0-5) 08/14/17 23:45 Hyaline Casts 3 /lpf (0-2) H 08/14/17 23:45 Urine Mucus Rare /hpf (None) H 08/14/17 23:45 Fluid Source Bronchial Wash 08/25/17 11:00 Fluid Color Red 08/25/17 11:00 Fluid Appearance Bloody 08/25/17 11:00 Fluid RBC 09687 /uL 08/25/17 11:00 Fluid Nucleated Cells 6000 /uL 08/25/17 11:00 Fluid Polynuclear WBCs 99 % 08/25/17 11:00 Fluid Mononuclear WBCs 1 % 08/25/17 11:00 Virus Source See Below 08/25/17 11:00 Viral Test See Below 08/25/17 11:00 Virus Analysis Interp See Below 08/25/17 11:00 Microbiology 08/23/17 18:27 Stool Stool Culture - Final 08/25/17 11:00 Bronchial Washings - Right Acid Fast Bacilli Smear - Final 08/25/17 11:00 Bronchial Washings - Right Acid Fast Bacilli Culture - Preliminary 08/25/17 11:00 Bronchial Washings - Right Gram Stain - Preliminary 08/25/17 11:00 Bronchial Washings - Right Bronchial Washings Culture - Preliminary 08/25/17 11:00 Bronchial Washings - Right Fungal Culture - Preliminary Assessment and Plan (1) Fall Status: Acute (2) Acute right hip pain Status: Acute (3) Rib pain on left side Status: Acute (4) Hidradenitis suppurativa Narrative/Plan: 67-year-old male has multiple medical troubles including his history of squamous cell lung cancer fifth being monitored by oncology. He is followed in the infectious disease office for the treatment of his hidradenitis which is being treated currently with Humira. There has been some improvement of his significant disease state but not resolution. The last office visit the and I agreed that we would continue treatment at least until the next quarter. He tolerated this very well. He has had no worsening of his anemia or renal failure . While in hospital his Humira is on hold. Continues to have significant pain to the right hip because of the fall. Orthopedics is following. Orthopedics apparently does not believe that there is a fracture and just has a hyperextension injury. And they will follow as needed. Is noted he is on BiPAP for his respiratory failure from his mucous plugging. For antimicrobial therapy with the isolation of the Moraxella and Pseudomonas, ceftazidime was initiated at 2 g IV piggyback every 8 hours He is having more comfortable at this time. As has noted dressings are not needed just have him on a drainage had and allow the drainage from his large draining sinus tracts to be absorbed into the pads. Severe right hip pain is slightly improved. But is still limiting his ability to sit in transfer The patient's pulmonary status he has continued to improve. After his Fourth bronchoscopies hadn't improved status. He is having no hemoptysis. Denies any other acute difficulties. We'll plan at least 10-14 days of ceftaz and after his last bronched and constantly have asked for a PICC line. Patient's Humira is on hold and this will be discussed and outpatient visits if this is be prudent for further use Status: Acute
[2017-08-27 06:11] LABS: Glucose,Whole Blood 124 mg/dL (75-99)
[2017-08-27] MEDS: INSULIN LISPRO (humaLOG) 300 UNIT/3 ML VIAL SQ SCH ×4 (06:35→20:43)
[2017-08-27] MEDS: PANTOPRAZOLE 40 MG TABLET PO SCH (06:37)
[2017-08-27] MEDS: CALCIUM CARB-VIT D 500MG-200UN 1 EACH TAB PO SCH ×2 (06:37→17:06)
[2017-08-27] MEDS: IPRATROPIUM-ALBUTEROL 3 ML NEB INHALATION SCH ×4 (08:04→19:29)
[2017-08-27] MEDS: SYMBICORT 160-4.5 MCG INHALER INHALATION SCH ×2 (08:05→19:29)
[2017-08-27] MEDS: LOPERAMIDE 2 MG CAP PO PRN (09:15)
[2017-08-27] MEDS: FUROSEMIDE 40 MG TAB PO SCH (09:18)
[2017-08-27] MEDS: CITALOPRAM HYDROBROMIDE 20 MG TAB PO SCH (09:18)
[2017-08-27] MEDS: guaiFENesin 600 MG TABLET.ER PO SCH ×2 (09:19→20:42)
[2017-08-27] MEDS: DILTIAZEM CD 180 MG CAP.ER.24H PO SCH (09:19)
[2017-08-27] MEDS: METOPROLOL SUCCINATE (ER) 25 MG TAB.ER.24H PO SCH ×2 (09:19→20:43)
[2017-08-27] MEDS: NYSTATIN 100,000 UNIT/ML SUSP 500,000 UNIT/5 ML CUP PO SCH ×4 (09:20→20:42)
[2017-08-27] MEDS: ALLOPURINOL 100 MG TAB PO SCH (09:20)
[2017-08-27] MEDS: MEGESTROL 400 MG/10 ML CUP PO SCH (09:20)
[2017-08-27] MEDS: predniSONE 10 MG TAB PO SCH (09:20)
[2017-08-27] MEDS: LINAGLIPTIN 5 MG TABLET PO SCH (09:20)
[2017-08-27] MEDS: LIDOCAINE 5% PATCH TOPICAL SCH (09:21)
--- NOTE | 2017-08-27 10:06 | P.PN ---
Subjective Progress Note Date: 08/27/17 Acute acute kidney injury, hyponatremia Objective - Vital Signs Vital signs: Vital Signs Temp 97.1 F L 08/27/17 04:00 Pulse 92 08/27/17 08:18 Resp 20 08/27/17 04:00 BP 107/64 08/27/17 04:00 Pulse Ox 92 L 08/27/17 04:00 Intake & Output 08/26/17 08/27/17 08/27/17 18:59 06:59 18:59 Intake Total 810 236 Output Total 3200 750 Balance -2390 -750 236 Weight 142.5 kg Intake: IV 230 Sodium Chloride 0.9% 1, 180 000 ml @ 20 mls/hr IV . Q24H [facility] Rx#:[id number] cefTAZidime 2 gm In 50 Sodium Chloride 0.9% 100 ml @ 100 mls/hr IVPB Q8HR [facility] Rx#:[id number] Oral 580 236 Output: Urine 3200 750 Other: Voiding Method Indwelling Catheter Indwelling Catheter # Bowel Movements 1 1 - Exam Lying in bed no acute distress S1-S2 heard decreased breath sounds right lung base [place] in place Trace edema - Labs CBC & Chem 7: 08/26/17 06:04 08/26/17 06:04 Labs: Abnormal Lab Results - Last 24 Hours (Table) 08/26/17 08/26/17 08/26/17 Range/Units 11:34 16:47 21:06 POC Glucose (mg/dL) 144 H 202 H 175 H (75-99) mg/dL 08/27/17 Range/Units 06:01 POC Glucose (mg/dL) 124 H (75-99) mg/dL Microbiology - Last 24 Hours (Table) 08/23/17 18:27 Stool Culture - Final Stool Assessment and Plan Plan: Impression: #1 acute kidney injury secondary to prerenal process from over diuresis. Creatinine back to baseline. #2 CKD3 secondary to nephrosclerosis. Baseline creatinine around 1.4 md/dl. 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 Recommendation: #1 continue with the current diuretic regimen of Lasix 40 mg by mouth daily. Metolazone has been decreased from 5 mg daily to 2.5 mg to 48 hours. #2 renal functions better and improving. No new labs today #3 check BMP in the morning.
--- NOTE | 2017-08-27 10:55 | P.PN ---
Subjective Progress Note Date: 08/27/17 Principal diagnosis: Patient was admitted with is very respiratory distress secondary to mucous plugging secondary to Pseudomonas pneumonia. Patient has a long-standing history of COPD with congestive heart failure, and lung cancer. Patient has undergone 4 bronchoscopies during this stay last one was earlier today per Dr. Bañuelos his note suggests there's been some improvement in the pulmonary process. This patient has been reluctant to participate in physical therapy as well as pulmonary therapy and CPT treatment I did talk with him at length yesterday trying to impress on him the need to participate in his recovery and to improve the outcome patient said that he would try to participate more actively this evening when I evaluated him and he appeared to be moving air much better the lung rushing were almost clear at this time and he seemed to be in better spirits. PICC line was placed we also discussed the likelihood that patient would go to inpatient rehab for at least a week or 2. Progress note for 08/27/2017 at approximately 10:51 AM Patient has improved minimally still on IV antibiotics blood sugars are stable, atrial fibrillation is stable White count has improved currently 17.9, renal function improved BUN 25 creatinine 1.23 Patient is sleeping but arousable this morning pulse ox today was 98% on 4 L nasal cannula is 02 was turned down to 3 L per nasal cannula. Patient is improving slowly, respiratory effort is improved, patient still complains of overall weakness fatigue. History of COPD, lung cancer, congestive heart failure, and chronic hidradenitis patient has been undergoing trial of Humira given his immune status and pulmonary status which considers stopping this due to the historical side effect of developing recurrent pulmonary infection his immune system is already compromised secondary to his other past histories which also include diabetes. Currently being treated for Pseudomonas pneumonia as well we'll continue to follow closely note patient underwent fourth bronchoscopy yesterday and seems to be improved this morning Objective - Vital Signs Vital signs: Vital Signs Temp 97.1 F L 08/27/17 04:00 Pulse 92 08/27/17 08:18 Resp 20 08/27/17 04:00 BP 107/64 08/27/17 04:00 Pulse Ox 92 L 08/27/17 04:00 Intake & Output 08/26/17 08/27/17 08/27/17 18:59 06:59 18:59 Intake Total 810 236 Output Total 3200 750 Balance -2390 -750 236 Weight 142.5 kg Intake: IV 230 Sodium Chloride 0.9% 1, 180 000 ml @ 20 mls/hr IV . Q24H [facility] Rx#:[id number] cefTAZidime 2 gm In 50 Sodium Chloride 0.9% 100 ml @ 100 mls/hr IVPB Q8HR [facility] Rx#:[id number] Oral 580 236 Output: Urine 3200 750 Other: Voiding Method Indwelling Catheter Indwelling Catheter # Bowel Movements 1 1 - Exam General: [Patient awake, alert and oriented times 3. Patient in no acute distress.] HEENT: [PERRL. EOMI. No pharyngeal erythema or exudate.] Neck: [No adenopathy.] Cardiac: [Heart regular in rate and rhythm. No S3. No S4. No clicks, rubs. No murmur.] Lungs: Breath sounds were significantly improved respiratory efforts sided improved sats were up a 2-93% on 5 L nasal cannula Abdomen: [No mass. No organomegaly. Bowel sounds presnt and normoactive in all 4 quadrants.] Extremes: [No edema no cyanosis no claudication normal pulses] : [] Musculoskeletal: [No joint erythema, edema or tenderness.] Skin: [No rash.] Neurologic: [No lateralizing deficits. CN II - XII grossly intact.] Lymphatic: [No adenopathy.] - Labs CBC & Chem 7: 08/26/17 06:04 08/26/17 06:04 Labs: Abnormal Lab Results - Last 24 Hours (Table) 08/26/17 08/26/17 08/26/17 Range/Units 11:34 16:47 21:06 POC Glucose (mg/dL) 144 H 202 H 175 H (75-99) mg/dL 08/27/17 Range/Units 06:01 POC Glucose (mg/dL) 124 H (75-99) mg/dL Microbiology - Last 24 Hours (Table) 08/23/17 18:27 Stool Culture - Final Stool Assessment and Plan (1) Pseudomonas aeruginosa infection Status: Acute (2) Acute right hip pain Status: Acute (3) At risk for readmission to hospital Status: Acute (4) Diabetes Status: Acute (5) Hidradenitis suppurativa Status: Acute Plan: plan as recommended at this time patient is improving slowly we will follow closely Time with Patient: Less than 30
[2017-08-27 11:52] LABS: Glucose,Whole Blood 169 mg/dL (75-99)
--- NOTE | 2017-08-27 11:56 | P.PN ---
Subjective Progress Note Date: 08/27/17 Progress note dated 08/21/2017 This is a patient who has been having issues with mucus plugging. He is undergoing bronchoscopy on the and 18 of August and then again on August 20. He is a previous history of right lobectomy for lung cancer. He was in a team on August 16 having been admitted to the hospital on August 14 falling and injuring his right hip and shoulder. Anyway my partner has done bronchoscopy for mucous plugging and right lung collapse. Today's chest x-ray shows some aeration to the apex of the right lung and is certainly better than yesterday's x-ray. The patient's on good antibiotics. The patient getting nasal O2 at 5 L high flow or BiPAP at 12 and 5 and 40%. Only getting about 500- 550 on the incentive spirometer. Also receiving Mucomyst and bronchodilators. Is getting appointment 9 IV at 20 mL an hour. BAL showed evidence of Pseudomonas aeruginosa and the patient was placed on Fortaz. Also on Zosyn. Progress note dated 08/22/2017 This is a 67-year-old male who was admitted a number of days ago. He was in a team on August 16 [place] been admitted to the hospital on August 14. He apparently fell and injured his right shoulder and right hip. Subsequent to that because a mucous plugging and because of previous of lung cancer surgery on the right lung, the patient underwent bronchoscopy on the and August 18 and then again on August 20. Anyway, today's chest x-ray does show improvement. We've been focusing on deep breathing coughing clearing of secretions incentive spirometer breathing treatments and N-acetylcysteine. Anyway he does look better. He does not need to use of BiPAP as frequently as he is using an can rather stay on nasal prongs. Her saturations are excellent. He is on 5 L. His BAL showed evidence of Pseudomonas aeruginosa and he was placed on his Fortaz. Also remains on Zosyn. Progress note dated 08/23/2017 67-year-old male with history of fall with injury to right shoulder and right hip. The patient was admitted to the hospital August 14 and moved to the ICU on August 16 via an 18 call. Subsequent to that, he underwent bronchoscopy for right lung collapse on August 16 August 18 and then again on August 20. The patient's overall clinical status and x-rays are improving. The patient is out on the floor. Breathing better. Feeling better. Coughing clearing secretions and using the incentive spirometer. He remains on antibiotics and breathing treatments. His bronchoscopy revealed evidence of pseudomonas aeruginosa which is being treated by the antibiotic call for test. Other than that things are moving along well. Progress note dated 08/26/2017 67-year-old male who was initially admitted to the hospital on August 14 and moved to the ICU on August 16 via an A team call. The patient developed right lung collapse and had bronchoscopy by my partner on August 16 and as well as August 20. Yesterday, to continue the endoscopy suite get another bronchoscopy on him. His secretion load was much less yesterday than it was on previous bronchoscopies. Nonetheless he still had last secretions and there were suctioned. A sample was sent to laboratory for analysis. He's had a number different positive cultures including Pseudomonas from the [place] Moraxella from the [place] as well as E. coli and group B strep from the wound cultures. Overall the patient's chest x-ray my opinion is about the same. Clinically he is much improved. The patient will likely need some sort of inpatient rehab. He seems to be getting stronger. He has less respiratory issues. Coughing but not producing a lot of phlegm. Still uses his incentive spirometer every hour and getting mechanical percussion to the right lower lobe. Progress note dated 08/27/2017 67-year-old male with a history of being admitted to the hospital August 14. Moved to the ICU on August 16 because of respiratory difficulty. He developed right lung collapse and had bronchoscopy by my partner on August 16 and August 20. On August 26, I went back into the right lung and did another bronched for clearing of secretions. The most recent cultures are negative. Prior sampling showed evidence of Pseudomonas and Moraxella. In addition, wound cultures were positive for E. coli and group B strep. The patient seems to be clinically improving. His chest x-ray has not dramatically improved. The patient is working on deep breathing coughing and clearing of secretions. In addition, the patient's getting the incentive spirometer every hour. Finally, the patient is getting chest physiotherapy to the right chest. Overall, the patient showed significant clinical improvement. Spoke to his primary doctor today. Objective - Vital Signs Vital signs: Vital Signs Temp 97.9 F 08/27/17 08:00 Pulse 92 08/27/17 08:18 Resp 20 08/27/17 08:00 BP 105/68 08/27/17 08:00 Pulse Ox 98 08/27/17 08:00 Intake & Output 08/26/17 08/27/17 08/27/17 18:59 06:59 18:59 Intake Total 810 236 Output Total 3200 750 Balance -2390 -750 236 Weight 142.5 kg Intake: IV 230 Sodium Chloride 0.9% 1, 180 000 ml @ 20 mls/hr IV . Q24H [facility] Rx#:[id number] cefTAZidime 2 gm In 50 Sodium Chloride 0.9% 100 ml @ 100 mls/hr IVPB Q8HR [facility] Rx#:[id number] Oral 580 236 Output: Urine 3200 750 Other: Voiding Method Indwelling Catheter Indwelling Catheter Indwelling Catheter # Bowel Movements 1 1 - Exam No acute distress, oriented 3 HEENT examination is unremarkable. Mucous membranes are moist. No oral lesions. Neck supple. Full range of motion. No adenopathy or thyromegaly. Neck veins are flat. Cardiovascular examination reveals regular rhythm rate. S1-S2 normal. No S3 or S4. No discernible murmur. Lungs reveal diminished breath sounds on the right compared to the left. The patient also has symptoms diffuse rhonchi. Some crackles are also noted on the right side. Left breath sounds are mostly clear.. Abdomen soft bowel sounds are heard. No masses or tenderness. Extremities are intact. No cyanosis clubbing but there is slight edema Skin is without rash or lesion. Neurologic examination is brief but nonfocal. - Labs CBC & Chem 7: 08/26/17 06:04 08/26/17 06:04 Labs: Abnormal Lab Results - Last 24 Hours (Table) 08/26/17 08/26/17 08/27/17 Range/Units 16:47 21:06 06:01 POC Glucose (mg/dL) 202 H 175 H 124 H (75-99) mg/dL Microbiology - Last 24 Hours (Table) 08/23/17 18:27 Stool Culture - Final Stool Assessment and Plan (1) Acute right hip pain Status: Acute (2) Diabetes Status: Acute (3) Fall Status: Acute (4) Acute on chronic systolic heart failure Status: Acute (5) Atrial fibrillation with rapid ventricular response Status: Acute (6) Benign paroxysmal positional vertigo Status: Acute (7) Brainstem stroke Status: Acute (8) Congestive heart failure Status: Acute (9) Diastolic CHF, acute on chronic Status: Acute (10) HTN (hypertension) Status: Acute (11) History of lung cancer Status: Acute (12) Hyperlipemia Status: Acute (13) Non-small cell carcinoma of lung Status: Acute (14) Pneumonia Status: Acute (15) Renal insufficiency Status: Acute (16) V-tach Status: Acute (17) Type 2 diabetes mellitus without complications Status: Chronic (18) Collapse of right lung Status: Acute Plan: Plan The patient will continue working on incentive spirometry bronchodilators coughing deep breathing and clearing of secretions. The patient's medications are appropriate. We'll continue to follow closely. He may need bronchoscopy in the future. No additional recommendations are made. Antibiotics are appropriate. Plan dated 08/22/2017 The patient continues to show improvement both clinically and radiographically. He continues with incentive spirometer every hour while awake breathing treatments mucolytic's deep breathing coughing and clearing of secretions. I don't believe he needs bronchoscopy at this time. He doesn't need to be on BiPAP 16 hours a day. We'll not alter his fluids based on whether or not he is or is not on BiPAP. We'll continue to follow closely. Plan dated 08/23/2017 Meds labs and x-rays are all reviewed. The patient seemed be clinically improved. Chest x-ray my in my opinion is improved. Clinically he is much better. We'll continue to follow. Discharge planning underway. No additional recommendations are made. Medications are reviewed. Plan dated 08/26/2017. X-rays reviewed. Labs are reviewed. Medications are reviewed. I talked to the patient and the patient's today. He may be at baseline. We'll go back and see we can look at old x-rays for comparison. We'll await the results of most recent bronchoscopy. In addition, if infectious disease is not involved , we'll have him see the patient. Plan dated 08/27/2017. Spoke to the primary doctor. The patient will likely be discharged to rehab facility. There the patient will continue to receive IV antibiotics via PICC line. The patient will need aggressive chest physiotherapy to the right chest. We'll repeat an x-ray in the morning. Clinically the patient's improved. Much less short of breath. Very debilitated though. Can't get out of bed. Time with Patient: Less than 30
[2017-08-27] MEDS: BACITRACIN 500 UNIT/GM OINT 28.4 GM TUBE TOPICAL SCH (12:20)
[2017-08-27] MEDS: LACTATED RINGERS 1,000 ML IV SCH (15:47)
[2017-08-27 17:25] LABS: Glucose,Whole Blood 204 mg/dL (75-99)
[2017-08-27] MEDS: MULTIVITAMINS, THERA 1 EACH TAB PO SCH (20:42)
[2017-08-27] MEDS: SODIUM CHLORIDE 0.9% 1,000 ML IV SCH (20:42)
[2017-08-27 20:46] LABS: Glucose,Whole Blood 107 mg/dL (75-99)
[2017-08-28] MEDS: LOPERAMIDE 2 MG CAP PO PRN ×2 (00:05→23:58)
[2017-08-28] MEDS: CYCLOBENZAPRINE 10 MG TAB PO PRN (00:53)
[2017-08-28 06:06] LABS: Glucose,Whole Blood 135 mg/dL (75-99)
[2017-08-28] MEDS: PANTOPRAZOLE 40 MG TABLET PO SCH (06:43)
[2017-08-28] MEDS: CALCIUM CARB-VIT D 500MG-200UN 1 EACH TAB PO SCH ×2 (06:43→17:46)
[2017-08-28] MEDS: INSULIN LISPRO (humaLOG) 300 UNIT/3 ML VIAL SQ SCH ×4 (06:43→23:38)
[2017-08-28 07:22] LABS: Anion Gap 7 mmol/L; Blood Urea Nitrogen 28 mg/dL (9-20); Calcium 8.7 mg/dL (8.4-10.2); Carbon Dioxide 29 mmol/L (22-30); Chloride 99 mmol/L (98-107); Glucose 118 mg/dL (74-99); Non-African American GFR(MDRD) 59 (>60 ml/min/1.73 sqM); Potassium 4.5 mmol/L (3.5-5.1); Sodium 135 mmol/L (137-145)
[2017-08-28] MEDS: IPRATROPIUM-ALBUTEROL 3 ML NEB INHALATION SCH ×4 (08:17→19:21)
[2017-08-28] MEDS: SYMBICORT 160-4.5 MCG INHALER INHALATION SCH ×2 (08:17→19:20)
[2017-08-28] MEDS: LINAGLIPTIN 5 MG TABLET PO SCH (08:35)
[2017-08-28] MEDS: NYSTATIN 100,000 UNIT/ML SUSP 500,000 UNIT/5 ML CUP PO SCH ×4 (08:35→21:31)
[2017-08-28] MEDS: predniSONE 10 MG TAB PO SCH (08:35)
[2017-08-28] MEDS: MEGESTROL 400 MG/10 ML CUP PO SCH (08:35)
[2017-08-28] MEDS: ALLOPURINOL 100 MG TAB PO SCH (08:36)
[2017-08-28] MEDS: METOPROLOL SUCCINATE (ER) 25 MG TAB.ER.24H PO SCH ×2 (08:36→20:41)
[2017-08-28] MEDS: CITALOPRAM HYDROBROMIDE 20 MG TAB PO SCH (08:36)
[2017-08-28] MEDS: guaiFENesin 600 MG TABLET.ER PO SCH ×2 (08:36→20:41)
[2017-08-28] MEDS: FUROSEMIDE 40 MG TAB PO SCH (08:36)
[2017-08-28] MEDS: LIDOCAINE 5% PATCH TOPICAL SCH (08:36)
[2017-08-28] MEDS: BACITRACIN 500 UNIT/GM OINT 28.4 GM TUBE TOPICAL SCH (08:54)
[2017-08-28] MEDS: DILTIAZEM CD 180 MG CAP.ER.24H PO SCH (08:58)
[2017-08-28] MEDS: HYDROcodone/APAP 7.5-325MG 1 EACH TAB PO PRN ×4 (08:58→23:43)
--- NOTE | 2017-08-28 09:41 | XR ---
EXAMINATION TYPE: XR chest 1V portable DATE OF EXAM: 08/28/2017 COMPARISON: 08/26/2017 HISTORY: Shortness of breath TECHNIQUE: Single frontal view of the chest is obtained. FINDINGS: Left-sided PICC line noted with complete opacification right hemithorax which is progresse d from the previous exam. Hyperinflation of the left lung likely the basis of COPD. Ectasia of the ao rta with atherosclerotic changes. Arthropathy of the shoulders. IMPRESSION: 1. Progressive changes on the right with complete opacification right hemithorax which may represent a combination of pleural fluid and consolidation or atelectasis. Endobronchial lesion or mucous plug in the differential diagnosis.
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
[2017-08-28 11:35] LABS: Glucose,Whole Blood 134 mg/dL (75-99)
[2017-08-28] MEDS ORDERED: IV FLUID CONTINUATION 1,000 ML IV ONE ×2 (12:18)
[2017-08-28] MEDS ORDERED: LIDOCAINE 2% INJ 20 MG/ML INTRATRACH ONE ×2 (12:21→15:11)
[2017-08-28] MEDS ORDERED: PROPOFOL 10 MG/ML 20 ML VIAL IV ONE (15:05)
[2017-08-28 17:45] LABS: Glucose,Whole Blood 175 mg/dL (75-99)
[2017-08-28] MEDS: METOLAZONE 2.5 MG TAB PO SCH (17:46)
--- NOTE | 2017-08-28 20:27 | PCN ---
PROCEDURE NOTE PREOP DIAGNOSIS: Left lung atelectasis. POSTOP DIAGNOSIS: Same. PROCEDURE: Bronchoscopy and therapeutic airway suctioning. This procedure was done in the intensive care unit. The patient was sedated and sedative medication was given by DIRECTOR ADULT at the bedside. The patient was placed on 100% non-rebreather face mask. After achieving adequate sedation, the flexible bronchoscope was inserted through the right nostril and was advanced to the upper airway. Examination of posterior pharynx, larynx, epiglottis and vocal cords was done. All of the upper airway structures were within normal limits. A total of 2 cc of 1% lidocaine was applied to the vocal cords then following this the bronchoscope was advanced to the upper airway. Examination of the tracheobronchial tree was done. Trachea was quite patent and within normal limits. The right mainstem bronchus was completely occluded with thick purulent mucus plugs. Therapeutic airway suctioning was done. The bronchoscope was moved in and out on multiple occasions, knowing that the respiratory secretions there were thick and obstructing the working chamber of the flexible bronchoscope. After performing therapeutic airway suctioning, airway patency was achieved. Underlying airways were noted. The right upper lobe bronchus was quite patent. The stump was identified at the level of the bronchus intermedius and I suspect this patient underwent a right middle lobe/right lower lobe resection. Examination of left side was within normal limits. A total of 25-30 cc of purulent respiratory secretions and mucus plug was aspirated. No bedside complication or bleeding. The bronchoscope was removed and the patient was left to recovery. A followup chest x-ray will be done. MMODL / IJN: [id number] /
[2017-08-28] MEDS: LACTATED RINGERS 1,000 ML IV SCH (20:38)
[2017-08-28] MEDS: MULTIVITAMINS, THERA 1 EACH TAB PO SCH (20:41)
[2017-08-28] MEDS ORDERED: INSULIN LISPRO (humaLOG) 300 UNIT/3 ML VIAL SQ SCH (21:00)
--- NOTE | 2017-08-28 21:06 | P.PN ---
Subjective Progress Note Date: 08/28/17 Principal diagnosis: Fall with left hip pain 67-year-old male who is well-known to the infectious disease service with as many hospitalizations as well as his hidradenitis. He's had a couple hospitalizations in the last several months that included atrial fibrillation with nonsustained V. tach. He has underlying cardiac murmur. He's had vertigo and acute renal failure. He's had some time at the extended care facility in the past year but is now home Doing relatively well under the care of his . He was hospitalized earlier this year with a bout of congestive heart failure and is in relatively well since that time. The. The patient was bathing and suffered a fall and now presents with severe right sided hip pain. He's been evaluated by orthopedics. The hidradenitis is now being treated with Humira injections at home. This is on Fridays. This has been occurring for the last couple of months now. There is been decreasing amount of drainage. His skin is becoming less erythematous and inflamed. The amount of drainage is improving The family is pleased that there is showing some improvement given the many year history of lack of improvement. However was still must apply large amounts of dressings on a daily basis to contain his drainage. The patient never became progressively more short of breath. Was transferred to intensive care unit. He's been seen by pulmonary and underwent bronchoscopy for removal of large mucous plugging to the right lung. Patient remains on BiPAP but is more stable at this time. Antimicrobial therapy was initiated with concerns to pneumonia with this pulmonary process. Cultures have revealed Moraxella and pseudomonas aeruginosa He has minimal improved pain today. Pulmonary status again was giving him difficulties, and again had bronchoscopy today for the fifth time to remove more mucous plugs. Doing well after the bronchoscopy today. However is certainly with weakness overall. Is being monitored in intensive care unit because of the bronchoscopy. Objective - Vital Signs Vital signs: Vital Signs Temp 98.4 F 08/28/17 11:29 Pulse 92 08/28/17 19:40 Resp 73 H 08/28/17 16:00 BP 114/70 08/28/17 13:30 Pulse Ox 97 08/28/17 19:22 Intake & Output 08/28/17 08/28/17 08/29/17 06:59 18:59 06:59 Intake Total 610 Output Total 1325 1355 Balance -1325 -2113 Weight 147 kg 138.8 kg Intake: IV 310 Sodium Chloride 0.9% 1, 60 000 ml @ 20 mls/hr IV . Q24H [facility] Rx#:[id number] cefTAZidime 2 gm In 100 Sodium Chloride 0.9% 100 ml @ 100 mls/hr IVPB Q8HR [facility] Rx#:[id number] Intake, IV Titration 60 Amount Lactated Ringers 1,000 ml 60 @ 20 mls/hr IV .Q24H [facility] Rx#:[id number] Oral 240 Output: Urine 1325 2725 Other: Voiding Method Indwelling Catheter Indwelling Catheter # Voids 2 - Exam Pleasant 67-year-old gentleman who suffers from obesity who was miserable at this time. BiPAP though is being tolerated. Hip pain is better treated. HEENT: Anicteric conjunctiva are pink and moist nasal mucosa grossly intact without significant lesions, there is no thrush. Neck: The neck is supple without significant lymphadenopathy or thyromegaly. Lungs: There is symmetrical air entry with evidence of crackles at the the right base Some expiratory wheezes are heard. Voice is weak Heart: Irregular with an audible S1 and S2 no S3 soft S4 There is no significant murmur click or rub, PMI was nondisplaced. Abdomen: Obese, Positive bowel sounds soft and nontender without palpable masses or organomegaly. There was no guarding or rebound. Extremities: The upper extremities have excellent pulses they are symmetric, no significant petechiae or telangiectasia. No splinter hemorrhages were noted. The left lower extremity is without significant tenderness at this time. Right lower extremity has severe pain upon manipulation. Any attempt to internally or externally rotate the limb causes him to have some pain. Of note he is able to move it himself with only minimal discomfort. There is at the chronic drainage without change from last evaluation. He has extensive areas of drainage on the buttocks bilaterally and inner thighs. Neuro: Awake alert oriented to person place and time. There are no acute new gross focal sensory motor deficits. - Labs CBC & Chem 7: 08/26/17 06:04 08/28/17 06:08 Labs: Abnormal Lab Results - Last 24 Hours (Table) 08/28/17 08/28/17 08/28/17 Range/Units 05:59 06:08 11:33 Sodium 135 L (137-145) mmol/L BUN 28 H (9-20) mg/dL Glucose 118 H (74-99) mg/dL POC Glucose (mg/dL) 135 H 134 H (75-99) mg/dL 08/28/17 Range/Units 17:42 Sodium (137-145) mmol/L BUN (9-20) mg/dL Glucose (74-99) mg/dL POC Glucose (mg/dL) 175 H (75-99) mg/dL Laboratory Results WBC 17.9 k/uL (3.8-10.6) H 08/26/17 06:04 RBC 4.11 m/uL (4.30-5.90) L 08/26/17 06:04 Hgb 10.2 gm/dL (13.0-17.5) L 08/26/17 06:04 Hct 35.9 % (39.0-53.0) L 08/26/17 06:04 MCV 87.2 fL (80.0-100.0) 08/26/17 06:04 MCH 24.7 pg (25.0-35.0) L 08/26/17 06:04 MCHC 28.4 g/dL (31.0-37.0) L 08/26/17 06:04 RDW 18.4 % (11.5-15.5) H 08/26/17 06:04 Plt Count 476 k/uL (150-450) H 08/26/17 06:04 Neutrophils % 81 % 08/26/17 06:04 Lymphocytes % 13 % 08/26/17 06:04 Monocytes % 4 % 08/26/17 06:04 Eosinophils % 1 % 08/26/17 06:04 Basophils % 0 % 08/26/17 06:04 Neutrophils # 14.4 k/uL (1.3-7.7) H 08/26/17 06:04 Lymphocytes # 2.3 k/uL (1.0-4.8) 08/26/17 06:04 Monocytes # 0.7 k/uL (0-1.0) 08/26/17 06:04 Eosinophils # 0.2 k/uL (0-0.7) 08/26/17 06:04 Basophils # 0.1 k/uL (0-0.2) 08/26/17 06:04 Hypochromasia Marked 08/26/17 06:04 Anisocytosis Slight 08/26/17 06:04 Sample Site lbrac 08/16/17 08:01 ABG pH 7.46 (7.35-7.45) H 08/16/17 08:01 ABG pCO2 46 mmHg (35-45) H 08/16/17 08:01 ABG pO2 47 mmHg (83-108) L 08/16/17 08:01 ABG HCO3 32 mmol/L (21-25) H 08/16/17 08:01 ABG Total CO2 34 mmol/L (19-24) H 08/16/17 08:01 ABG O2 Saturation 85.0 % (94-97) L 08/16/17 08:01 ABG Base Excess 8.0 mmol/L 08/16/17 08:01 FiO2 60 % 08/16/17 08:01 Sodium 135 mmol/L (137-145) L 08/28/17 06:08 Potassium 4.5 mmol/L (3.5-5.1) 08/28/17 06:08 Chloride 99 mmol/L (98-107) 08/28/17 06:08 Carbon Dioxide 29 mmol/L (22-30) 08/28/17 06:08 Anion Gap 7 mmol/L 08/28/17 06:08 BUN 28 mg/dL (9-20) H 08/28/17 06:08 Creatinine 1.21 mg/dL (0.66-1.25) 08/28/17 06:08 Est GFR (MDRD) Af Amer >60 (>60 ml/min/1.73 sqM) 08/28/17 06:08 Est GFR (MDRD) Non-Af 59 (>60 ml/min/1.73 sqM) 08/28/17 06:08 Glucose 118 mg/dL (74-99) H 08/28/17 06:08 POC Glucose (mg/dL) 175 mg/dL (75-99) H 08/28/17 17:42 POC Glu It Consulting Director ID Sahara Linder 08/28/17 17:[address] Glu mg/dL 143 mg/dL 08/16/17 07:03 Hemoglobin A1c 6.6 % (4.2-6.1) H 08/16/17 07:03 Calcium 8.7 mg/dL (8.4-10.2) 08/28/17 06:08 Phosphorus 4.8 mg/dL (2.5-4.5) H 08/26/17 06:04 Magnesium 1.6 mg/dL (1.6-2.3) 08/26/17 06:04 Iron 29 ug/dL (65-175) L 08/18/17 04:20 TIBC 171 ug/dL (228-460) L 08/18/17 04:20 Iron Saturation 16.96 (15.00-50.00) 08/18/17 04:20 Ferritin 533.4 ng/mL (22.0-322.0) H 08/18/17 04:20 Total Bilirubin 0.4 mg/dL (0.2-1.3) 08/24/17 06:20 AST 14 U/L (17-59) L 08/24/17 06:20 ALT 32 U/L (21-72) 08/24/17 06:20 Alkaline Phosphatase 100 U/L (38-126) 08/24/17 06:20 Total Protein 6.8 g/dL (6.3-8.2) 08/24/17 06:20 Albumin 2.5 g/dL (3.5-5.0) L 08/24/17 06:20 Cortisol 9 ug/dL 08/17/17 04:38 Urine Color Yellow 08/14/17 23:45 Urine Appearance Clear (Clear) 08/14/17 23:45 Urine pH 5.5 (5.0-8.0) 08/14/17 23:45 Ur Specific [place] 1.011 (1.001-1.035) 08/14/17 23:45 Urine Protein Negative (Negative) 08/14/17 23:45 Urine Glucose (UA) Negative (Negative) 08/14/17 23:45 Urine Ketones Negative (Negative) 08/14/17 23:45 Urine Blood Trace (Negative) H 08/14/17 23:45 Urine Nitrite Negative (Negative) 08/14/17 23:45 Urine Bilirubin Negative (Negative) 08/14/17 23:45 Urine Urobilinogen <2.0 mg/dL (<2.0) 08/14/17 23:45 Ur Leukocyte Esterase Negative (Negative) 08/14/17 23:45 Urine RBC 9 /hpf (0-5) H 08/14/17 23:45 Urine WBC 1 /hpf (0-5) 08/14/17 23:45 Hyaline Casts 3 /lpf (0-2) H 08/14/17 23:45 Urine Mucus Rare /hpf (None) H 08/14/17 23:45 Fluid Source Bronchial Wash 08/25/17 11:00 Fluid Color Red 08/25/17 11:00 Fluid Appearance Bloody 08/25/17 11:00 Fluid RBC 75186 /uL 08/25/17 11:00 Fluid Nucleated Cells 6000 /uL 08/25/17 11:00 Fluid Polynuclear WBCs 99 % 08/25/17 11:00 Fluid Mononuclear WBCs 1 % 08/25/17 11:00 Virus Source See Below 08/25/17 11:00 Viral Test See Below 08/25/17 11:00 Virus Analysis Interp See Below 08/25/17 11:00 Microbiology 08/25/17 11:00 Bronchial Washings - Right Gram Stain - Final 08/25/17 11:00 Bronchial Washings - Right Bronchial Washings Culture - Final Corynebacterium striatum 08/23/17 18:27 Stool Stool Culture - Final 08/25/17 11:00 Bronchial Washings - Right Acid Fast Bacilli Smear - Final 08/25/17 11:00 Bronchial Washings - Right Acid Fast Bacilli Culture - Preliminary 08/25/17 11:00 Bronchial Washings - Right Fungal Culture - Preliminary Assessment and Plan (1) Fall Status: Acute (2) Acute right hip pain Status: Acute (3) Rib pain on left side Status: Acute (4) Hidradenitis suppurativa Narrative/Plan: 67-year-old male has multiple medical troubles including his history of squamous cell lung cancer fifth being monitored by oncology. He is followed in the infectious disease office for the treatment of his hidradenitis which is being treated currently with Humira. There has been some improvement of his significant disease state but not resolution. The last office visit the and I agreed that we would continue treatment at least until the next quarter. He tolerated this very well. He has had no worsening of his anemia or renal failure . While in hospital his Humira is on hold. Continues to have significant pain to the right hip because of the fall. Orthopedics is following. Orthopedics apparently does not believe that there is a fracture and just has a hyperextension injury. And they will follow as needed. Underwent another bronchoscopy today for his recurrent mucus plugging For antimicrobial therapy with the isolation of the Moraxella and Pseudomonas, ceftazidime was initiated at 2 g IV piggyback every 8 hours He is having more comfortable at this time. As has noted dressings are not needed just have him on a drainage had and allow the drainage from his large draining sinus tracts to be absorbed into the pads. The right hip pain is slightly improved. But is still limiting his ability to sit in transfer The pulmonary status continues to wax and wane requires a fifth bronchoscopy today We'll plan at least 10-14 days of ceftaz and after his last bronch and the PICC line is been placed Patient's Humira is on hold and this will be discussed and outpatient visits if this is be prudent for further use Status: Acute
[2017-08-28 22:39] LABS: Glucose,Whole Blood 190 mg/dL (75-99)
[2017-08-28 23:29] LABS: Glucose,Whole Blood 176 mg/dL (75-99)
[2017-08-28] MEDS: SODIUM CHLORIDE 0.9% 1,000 ML IV SCH (23:59)
[2017-08-29 05:07] LABS: Anisocytosis Slight; Basophils # (A) 0.1 k/uL (0-0.2); Basophils % (A) 1 %; CH 24.8; CHCM 27.8; Eosinophils # (A) 0.4 k/uL (0-0.7); Eosinophils % (A) 2 %; HCT 33.9 % (39.0-53.0); HDW 2.28; HGB 9.9 gm/dL (13.0-17.5); Hypochromasia Marked; Luc # (Auto) 0.34; Luc % (Auto) 2; Lymphocytes # (A) 2.1 k/uL (1.0-4.8); Lymphocytes % (A) 13 %; MCH 26.1 pg (25.0-35.0); MCHC 29.2 g/dL (31.0-37.0); MCV 89.3 fL (80.0-100.0); Mean Platelet Volume 7.4; Monocytes % (A) 6 %; Neutrophils # (A) 12.6 k/uL (1.3-7.7); Neutrophils % (A) 77 %; RDW 17.1 % (11.5-15.5); WBC 16.4 k/uL (3.8-10.6); WBC (Perox) 17.81
[2017-08-29 05:38] LABS: ALT 28 U/L (21-72); AST 15 U/L (17-59); Alkaline Phosphatase 103 U/L (38-126); Anion Gap 9 mmol/L; Blood Urea Nitrogen 36 mg/dL (9-20); Calcium 8.7 mg/dL (8.4-10.2); Carbon Dioxide 30 mmol/L (22-30); Chloride 96 mmol/L (98-107); Glucose 140 mg/dL (74-99); Magnesium 1.5 mg/dL (1.6-2.3); Non-African American GFR(MDRD) 55 (>60 ml/min/1.73 sqM); Phosphorous 5.3 mg/dL (2.5-4.5); Potassium 5.9 mmol/L (3.5-5.1); Sodium 135 mmol/L (137-145); Total Bilirubin 0.3 mg/dL (0.2-1.3); Total Protein 6.9 g/dL (6.3-8.2)
[2017-08-29] MEDS ORDERED: Magnesium Replacement Protocol 1 EACH MISC MISCELLANE PRN (06:02)
[2017-08-29] MEDS: IPRATROPIUM-ALBUTEROL 3 ML NEB INHALATION SCH ×4 (07:23→19:51)
[2017-08-29] MEDS: SYMBICORT 160-4.5 MCG INHALER INHALATION SCH ×2 (07:23→19:51)
[2017-08-29 07:33] LABS: Glucose,Whole Blood 145 mg/dL (75-99)
[2017-08-29] MEDS: MAGNESIUM SULFATE-D5W PMX 1 GM in DEXTROSE/WATER 1 100ML.BAG IVPB SCH ×2 (07:40→08:35)
[2017-08-29] MEDS: PANTOPRAZOLE 40 MG TABLET PO SCH (07:42)
[2017-08-29] MEDS: FUROSEMIDE 40 MG TAB PO SCH (07:42)
[2017-08-29] MEDS: LIDOCAINE 5% PATCH TOPICAL SCH (07:42)
[2017-08-29] MEDS: NYSTATIN 100,000 UNIT/ML SUSP 500,000 UNIT/5 ML CUP PO SCH ×4 (07:42→21:16)
[2017-08-29] MEDS: MEGESTROL 400 MG/10 ML CUP PO SCH (07:43)
[2017-08-29] MEDS: LINAGLIPTIN 5 MG TABLET PO SCH (07:43)
[2017-08-29] MEDS: CITALOPRAM HYDROBROMIDE 20 MG TAB PO SCH (07:43)
[2017-08-29] MEDS: METOPROLOL SUCCINATE (ER) 25 MG TAB.ER.24H PO SCH ×2 (07:44→21:14)
[2017-08-29] MEDS: ALLOPURINOL 100 MG TAB PO SCH (07:44)
[2017-08-29] MEDS: DILTIAZEM CD 180 MG CAP.ER.24H PO SCH (07:44)
[2017-08-29] MEDS: CALCIUM CARB-VIT D 500MG-200UN 1 EACH TAB PO SCH ×2 (07:44→17:19)
[2017-08-29] MEDS: predniSONE 10 MG TAB PO SCH (07:45)
--- NOTE | 2017-08-29 08:25 | XR ---
EXAMINATION TYPE: XR chest 1V portable DATE OF EXAM: 08/29/2017 COMPARISON: Prior chest x-ray 08/28/2017 HISTORY: Abnormal chest x-ray, recurrent mucous plugging TECHNIQUE: frontal view of the chest is obtained on 2 images. FINDINGS: There is some improvement in aeration in the right lung. Left-sided PICC line is noted, di stal tip coursing towards the superior vena cava level. Mediastinum appears widened, the heart is enl arged. There is likely a right pleural effusion. Airspace disease persists in the right hemithorax. IMPRESSION: There is improvement in aeration of the right hemithorax.
[2017-08-29] MEDS: INSULIN LISPRO (humaLOG) 300 UNIT/3 ML VIAL SQ SCH ×4 (08:34→21:15)
[2017-08-29] MEDS: BACITRACIN 500 UNIT/GM OINT 28.4 GM TUBE TOPICAL SCH (08:36)
--- NOTE | 2017-08-29 09:27 | P.PN ---
Subjective Progress Note Date: 08/29/17 67-year-old male patient who came into the intensive care yesterday with a complete right lung collapse. I performed a bronchoscopy and therapeutic airway suctioning and copious amounts of mucous plug was aspirated from the right lung. Postop, the patient a chest x-ray today and the right lung is adequately expanded and the patient has adequate rotation of the right upper lobe. Note that he has a right middle lobe/right lower lobe resection and the stump looked quite healthy during the bronchoscope. Is currently on fleets of oxygen nasal cannula. Previous cultures have showed pseudomonas and Moraxella and the patient is currently on IV Fortaz. No fever. No chills. No night sweats. He is tolerating his breathing treatments. He is tolerating his antibiotics. No signs of septicemia. No aspiration. No other complaints otherwise. He was on BiPAP on and off throughout the night. Aggressive chest PT is being performed. No other significant events over the past 24 hours. Objective - Vital Signs Vital signs: Vital Signs Temp 98.3 F 08/29/17 08:00 Pulse 89 08/29/17 08:30 Resp 28 H 08/29/17 08:30 BP 113/72 08/29/17 08:30 Pulse Ox 95 08/29/17 08:30 Intake & Output 08/28/17 08/29/17 08/29/17 18:59 06:59 18:59 Intake Total 610 340 40 Output Total 2725 1015 320 Balance -2315 -675 -280 Weight 138.8 kg 131.4 kg Intake: IV 310 340 40 Sodium Chloride 0.9% 1, 60 240 40 000 ml @ 20 mls/hr IV . Q24H [facility] Rx#:[id number] cefTAZidime 2 gm In 100 100 Sodium Chloride 0.9% 100 ml @ 100 mls/hr IVPB Q8HR [facility] Rx#:[id number] Intake, IV Titration 60 Amount Lactated Ringers 1,000 ml 60 @ 20 mls/hr IV .Q24H [facility] Rx#:[id number] Oral 240 Output: Urine 2725 1015 320 Other: Voiding Method Indwelling Catheter Indwelling Catheter - Exam No acute distress, oriented 3 HEENT examination is unremarkable. Mucous membranes are moist. No oral lesions. Neck supple. Full range of motion. No adenopathy or thyromegaly. Neck veins are flat. Cardiovascular examination reveals regular rhythm rate. S1-S2 normal. No S3 or S4. No discernible murmur. Lungs reveal diminished breath sounds on the right compared to the left. The patient also has symptoms diffuse rhonchi. Some crackles are also noted on the right side. Left breath sounds are mostly clear.. Abdomen soft bowel sounds are heard. No masses or tenderness. Extremities are intact. No cyanosis clubbing but there is slight edema Skin is without rash or lesion. Neurologic examination is brief but nonfocal. - Labs CBC & Chem 7: 08/29/17 04:10 08/29/17 04:10 Labs: Abnormal Lab Results - Last 24 Hours (Table) 08/28/17 08/28/17 08/28/17 Range/Units 11:33 17:42 22:36 WBC (3.8-10.6) k/uL RBC (4.30-5.90) m/uL Hgb (13.0-17.5) gm/dL Hct (39.0-53.0) % MCHC (31.0-37.0) g/dL RDW (11.5-15.5) % Plt Count (150-450) k/uL Neutrophils # (1.3-7.7) k/uL Sodium (137-145) mmol/L Potassium (3.5-5.1) mmol/L Chloride (98-107) mmol/L BUN (9-20) mg/dL Creatinine (0.66-1.25) mg/dL Glucose (74-99) mg/dL POC Glucose (mg/dL) 134 H 175 H 190 H (75-99) mg/dL Phosphorus (2.5-4.5) mg/dL Magnesium (1.6-2.3) mg/dL AST (17-59) U/L Albumin (3.5-5.0) g/dL 08/28/17 08/29/17 08/29/17 Range/Units 23:28 04:10 04:10 WBC 16.4 H (3.8-10.6) k/uL RBC 3.80 L (4.30-5.90) m/uL Hgb 9.9 L (13.0-17.5) gm/dL Hct 33.9 L (39.0-53.0) % MCHC 29.2 L (31.0-37.0) g/dL RDW 17.1 H (11.5-15.5) % Plt Count 473 H (150-450) k/uL Neutrophils # 12.6 H (1.3-7.7) k/uL Sodium 135 L (137-145) mmol/L Potassium 5.9 H (3.5-5.1) mmol/L Chloride 96 L (98-107) mmol/L BUN 36 H (9-20) mg/dL Creatinine 1.30 H (0.66-1.25) mg/dL Glucose 140 H (74-99) mg/dL POC Glucose (mg/dL) 176 H (75-99) mg/dL Phosphorus 5.3 H (2.5-4.5) mg/dL Magnesium 1.5 L (1.6-2.3) mg/dL AST 15 L (17-59) U/L Albumin 2.7 L (3.5-5.0) g/dL 08/29/17 Range/Units 07:31 WBC (3.8-10.6) k/uL RBC (4.30-5.90) m/uL Hgb (13.0-17.5) gm/dL Hct (39.0-53.0) % MCHC (31.0-37.0) g/dL RDW (11.5-15.5) % Plt Count (150-450) k/uL Neutrophils # (1.3-7.7) k/uL Sodium (137-145) mmol/L Potassium (3.5-5.1) mmol/L Chloride (98-107) mmol/L BUN (9-20) mg/dL Creatinine (0.66-1.25) mg/dL Glucose (74-99) mg/dL POC Glucose (mg/dL) 145 H (75-99) mg/dL Phosphorus (2.5-4.5) mg/dL Magnesium (1.6-2.3) mg/dL AST (17-59) U/L Albumin (3.5-5.0) g/dL Assessment and Plan Plan: Assessment 1 right lung opacification secondary to mucous plug/atelectasis. Status post multiple bronchoscopies with applicator was suctioning and evacuation of the right-sided mucous plugs. The last procedure was done yesterday. 2 right lung pseudomonal pneumonia currently on IV Fortaz 3 acute hypoxic respiratory failure currently on 3 L of oxygen nasal cannula 4 fall with right hip pain without evidence of fracture 5 CVA, history of 6 hypertension 7 history of lung cancer status post right middle lobe/right lower lobe resection 8 chronic renal failure 9 hyperlipidemia 10 history of fall 11 CHF with systolic dysfunction 12 GERD 13 hidradenitis of breath Plan Continue current antibiotic coverage. Aggressive chest PT. BiPAP on and off during the day. Repeat chest x-ray in the morning. Wean down the FiO2 as tolerated. Continued IV Fortaz. The patient is controlled in terms of his atrial fibrillation. Rest of the medication was reviewed no other changes from my standpoint. We'll continue to follow. Possible discharge to the floor at a later stage. Repeat chest x-ray in a.m. Repeat the potassium level for a level of 5.9 and treat if the potassium level remains elevated.
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
[2017-08-29 12:05] LABS: Glucose,Whole Blood 177 mg/dL (75-99)
--- NOTE | 2017-08-29 12:42 | P.PN ---
Subjective Progress Note Date: 08/28/17 Note that this evaluation was done on 08/28/2017. This is a 67 year-old male patient who got transferred to the intensive care unit this morning because of completely collapsed right lung. The patient has history of non-small cell lung cancer and the patient has undergone bilobectomy involving the right middle and right lower lobe for lung cancer. The patient had a completely opacified right upper lobe and I suspected mucous plugs. Note that the patient has had multiple bronchoscopies earlier for the same. He has culture pseudomonas in her lungs and the patient is currently on IV Fortaz. The patient got transferred to the intensive care unit upon the recommendation of the nurse practitioner who found the patient to have more shortness of breath. I reviewed the chest x-ray and there is significant volume loss and completely opacified right lung. The patient had his diet approximately 7:00 in the morning. For that reason I waited till 3 PM and I performed a bronchoscopy on this patient and therapeutic it was suctioning was done with copious amount of thick purulent respiratory secretions were suctioned from the patient's right lung. The patient towards procedure well without any major complications. The patient was kept on oxygen 3-4 L/m nasal cannula. He is on IV Fortaz. Aggressive chest PT will be done. Objective - Vital Signs Vital signs: Vital Signs Temp 98.3 F 08/29/17 08:00 Pulse 96 08/29/17 11:30 Resp 23 08/29/17 11:30 BP 113/63 08/29/17 11:30 Pulse Ox 98 08/29/17 11:30 Intake & Output 08/28/17 08/29/17 08/29/17 18:59 06:59 18:59 Intake Total 610 340 100 Output Total 2725 1015 760 Balance -2115 -675 -660 Weight 138.8 kg 131.4 kg 131.4 kg Intake: IV 310 340 100 Sodium Chloride 0.9% 1, 60 240 100 000 ml @ 20 mls/hr IV . Q24H [facility] Rx#:[id number] cefTAZidime 2 gm In 100 100 Sodium Chloride 0.9% 100 ml @ 100 mls/hr IVPB Q8HR [facility] Rx#:[id number] Intake, IV Titration 60 Amount Lactated Ringers 1,000 ml 60 @ 20 mls/hr IV .Q24H [facility] Rx#:[id number] Oral 240 Output: Urine 2725 1015 760 Other: Voiding Method Indwelling Catheter Indwelling Catheter Indwelling Catheter - Exam No acute distress, oriented 3 HEENT examination is unremarkable. Mucous membranes are moist. No oral lesions. Neck supple. Full range of motion. No adenopathy or thyromegaly. Neck veins are flat. Cardiovascular examination reveals regular rhythm rate. S1-S2 normal. No S3 or S4. No discernible murmur. Lungs reveal diminished breath sounds on the right compared to the left. The patient also has symptoms diffuse rhonchi. Some crackles are also noted on the right side. Left breath sounds are mostly clear.. Abdomen soft bowel sounds are heard. No masses or tenderness. Extremities are intact. No cyanosis clubbing but there is slight edema Skin is without rash or lesion. Neurologic examination is brief but nonfocal. - Labs CBC & Chem 7: 08/29/17 04:10 08/29/17 11:55 Labs: Abnormal Lab Results - Last 24 Hours (Table) 08/28/17 08/28/17 08/28/17 Range/Units 17:42 22:36 23:28 WBC (3.8-10.6) k/uL RBC (4.30-5.90) m/uL Hgb (13.0-17.5) gm/dL Hct (39.0-53.0) % MCHC (31.0-37.0) g/dL RDW (11.5-15.5) % Plt Count (150-450) k/uL Neutrophils # (1.3-7.7) k/uL Sodium (137-145) mmol/L Potassium (3.5-5.1) mmol/L Chloride (98-107) mmol/L BUN (9-20) mg/dL Creatinine (0.66-1.25) mg/dL Glucose (74-99) mg/dL POC Glucose (mg/dL) 175 H 190 H 176 H (75-99) mg/dL Phosphorus (2.5-4.5) mg/dL Magnesium (1.6-2.3) mg/dL AST (17-59) U/L Albumin (3.5-5.0) g/dL 08/29/17 08/29/17 08/29/17 Range/Units 04:10 04:10 07:31 WBC 16.4 H (3.8-10.6) k/uL RBC 3.80 L (4.30-5.90) m/uL Hgb 9.9 L (13.0-17.5) gm/dL Hct 33.9 L (39.0-53.0) % MCHC 29.2 L (31.0-37.0) g/dL RDW 17.1 H (11.5-15.5) % Plt Count 473 H (150-450) k/uL Neutrophils # 12.6 H (1.3-7.7) k/uL Sodium 135 L (137-145) mmol/L Potassium 5.9 H (3.5-5.1) mmol/L Chloride 96 L (98-107) mmol/L BUN 36 H (9-20) mg/dL Creatinine 1.30 H (0.66-1.25) mg/dL Glucose 140 H (74-99) mg/dL POC Glucose (mg/dL) 145 H (75-99) mg/dL Phosphorus 5.3 H (2.5-4.5) mg/dL Magnesium 1.5 L (1.6-2.3) mg/dL AST 15 L (17-59) U/L Albumin 2.7 L (3.5-5.0) g/dL 08/29/17 Range/Units 12:01 WBC (3.8-10.6) k/uL RBC (4.30-5.90) m/uL Hgb (13.0-17.5) gm/dL Hct (39.0-53.0) % MCHC (31.0-37.0) g/dL RDW (11.5-15.5) % Plt Count (150-450) k/uL Neutrophils # (1.3-7.7) k/uL Sodium (137-145) mmol/L Potassium (3.5-5.1) mmol/L Chloride (98-107) mmol/L BUN (9-20) mg/dL Creatinine (0.66-1.25) mg/dL Glucose (74-99) mg/dL POC Glucose (mg/dL) 177 H (75-99) mg/dL Phosphorus (2.5-4.5) mg/dL Magnesium (1.6-2.3) mg/dL AST (17-59) U/L Albumin (3.5-5.0) g/dL Assessment and Plan Plan: Assessment 1 right lung opacification secondary to mucous plug/atelectasis. Status post multiple bronchoscopies, repeat bronchoscopy was done on 08/28/2017 for the same. 2 right lung pseudomonal pneumonia currently on IV Fortaz 3 acute hypoxic respiratory failure currently on 3 L of oxygen nasal cannula 4 fall with right hip pain without evidence of fracture 5 CVA, history of 6 hypertension 7 history of lung cancer status post right middle lobe/right lower lobe resection 8 chronic renal failure 9 hyperlipidemia 10 history of fall 11 CHF with systolic dysfunction 12 GERD 13 hidradenitis of breath Plan Continue current antibiotic coverage. Aggressive chest PT. BiPAP on and off during the day. Repeat chest x-ray in the morning. A bronchoscopy was done this afternoon and the patient tolerated the procedure well without any complications with copious amount of rest or secretions were suctioned out and the patient tolerated the procedure well. Aggressive pulmonary toileting. BiPAP. We'll continue to follow.
[2017-08-29] MEDS: guaiFENesin 600 MG TABLET.ER PO SCH ×2 (14:18→21:13)
[2017-08-29 17:04] LABS: Glucose,Whole Blood 238 mg/dL (75-99)
[2017-08-29] MEDS: LACTATED RINGERS 1,000 ML IV SCH (17:19)
[2017-08-29] MEDS: HYDROcodone/APAP 7.5-325MG 1 EACH TAB PO PRN ×2 (17:39→22:55)
[2017-08-29] MEDS: MULTIVITAMINS, THERA 1 EACH TAB PO SCH (21:14)
[2017-08-29] MEDS: SODIUM CHLORIDE 0.9% 1,000 ML IV SCH (21:16)
[2017-08-29 21:17] LABS: Glucose,Whole Blood 205 mg/dL (75-99)
--- NOTE | 2017-08-29 22:18 | P.PN ---
Subjective Progress Note Date: 08/29/17 Principal diagnosis: Fall with left hip pain 67-year-old male who is well-known to the infectious disease service with as many hospitalizations as well as his hidradenitis. He's had a couple hospitalizations in the last several months that included atrial fibrillation with nonsustained V. tach. He has underlying cardiac murmur. He's had vertigo and acute renal failure. He's had some time at the extended care facility in the past year but is now home Doing relatively well under the care of his . He was hospitalized earlier this year with a bout of congestive heart failure and is in relatively well since that time. The. The patient was bathing and suffered a fall and now presents with severe right sided hip pain. He's been evaluated by orthopedics. The hidradenitis is now being treated with Humira injections at home. This is on Fridays. This has been occurring for the last couple of months now. There is been decreasing amount of drainage. His skin is becoming less erythematous and inflamed. The amount of drainage is improving The family is pleased that there is showing some improvement given the many year history of lack of improvement. However was still must apply large amounts of dressings on a daily basis to contain his drainage. The patient never became progressively more short of breath. Was transferred to intensive care unit. He's been seen by pulmonary and underwent bronchoscopy for removal of large mucous plugging to the right lung. Patient remains on BiPAP but is more stable at this time. Antimicrobial therapy was initiated with concerns to pneumonia with this pulmonary process. Cultures have revealed Moraxella and pseudomonas aeruginosa He has minimal improved pain today. Pulmonary status again was giving him difficulties, and again had bronchoscopy today for the fifth time to remove more mucous plugs. Doing well after the bronchoscopy. However is certainly with weakness overall. Fortunately he was able to tolerate sitting up in the chair for several hours. Is being monitored in intensive care unit because of the chronic respiratory failure and possible need for further bronchoscopy. Objective - Vital Signs Vital signs: Vital Signs Temp 98.2 F 08/29/17 20:00 Pulse 101 H 08/29/17 22:00 Resp 26 H 08/29/17 22:00 BP 114/69 08/29/17 22:00 Pulse Ox 95 08/29/17 22:00 Intake & Output 08/29/17 08/29/17 08/30/17 06:59 18:59 06:59 Intake Total 340 240 40 Output Total 1015 1250 300 Balance -920 -5635 -601 Weight 131.4 kg 131.4 kg Intake: IV 340 240 40 Sodium Chloride 0.9% 1, 240 240 40 000 ml @ 20 mls/hr IV . Q24H [facility] Rx#:[id number] cefTAZidime 2 gm In 100 Sodium Chloride 0.9% 100 ml @ 100 mls/hr IVPB Q8HR [facility] Rx#:[id number] Output: Urine 1015 1250 300 Other: Voiding Method Indwelling Catheter Indwelling Catheter Indwelling Catheter - Exam Pleasant 67-year-old gentleman who suffers from obesity who was miserable at this time. BiPAP though is being tolerated. Hip pain is better treated. HEENT: Anicteric conjunctiva are pink and moist nasal mucosa grossly intact without significant lesions, there is no thrush. Neck: The neck is supple without significant lymphadenopathy or thyromegaly. Lungs: There is symmetrical air entry with evidence of crackles at the the right base Some expiratory wheezes are heard. Voice is weak Heart: Irregular with an audible S1 and S2 no S3 soft S4 There is no significant murmur click or rub, PMI was nondisplaced. Abdomen: Obese, Positive bowel sounds soft and nontender without palpable masses or organomegaly. There was no guarding or rebound. Extremities: The upper extremities have excellent pulses they are symmetric, no significant petechiae or telangiectasia. No splinter hemorrhages were noted. The left lower extremity is without significant tenderness at this time. Right lower extremity has severe pain upon manipulation. Any attempt to internally or externally rotate the limb causes him to have some pain. Of note he is able to move it himself with only minimal discomfort. There is at the chronic drainage without change from last evaluation. He has extensive areas of drainage on the buttocks bilaterally and inner thighs. Neuro: Awake alert oriented to person place and time. There are no acute new gross focal sensory motor deficits. - Labs CBC & Chem 7: 08/29/17 04:10 08/29/17 11:55 Labs: Abnormal Lab Results - Last 24 Hours (Table) 08/28/17 08/28/17 08/29/17 Range/Units 22:36 23:28 04:10 WBC 16.4 H (3.8-10.6) k/uL RBC 3.80 L (4.30-5.90) m/uL Hgb 9.9 L (13.0-17.5) gm/dL Hct 33.9 L (39.0-53.0) % MCHC 29.2 L (31.0-37.0) g/dL RDW 17.1 H (11.5-15.5) % Plt Count 473 H (150-450) k/uL Neutrophils # 12.6 H (1.3-7.7) k/uL Sodium (137-145) mmol/L Potassium (3.5-5.1) mmol/L Chloride (98-107) mmol/L BUN (9-20) mg/dL Creatinine (0.66-1.25) mg/dL Glucose (74-99) mg/dL POC Glucose (mg/dL) 190 H 176 H (75-99) mg/dL Phosphorus (2.5-4.5) mg/dL Magnesium (1.6-2.3) mg/dL AST (17-59) U/L Albumin (3.5-5.0) g/dL 08/29/17 08/29/17 08/29/17 Range/Units 04:10 07:31 12:01 WBC (3.8-10.6) k/uL RBC (4.30-5.90) m/uL Hgb (13.0-17.5) gm/dL Hct (39.0-53.0) % MCHC (31.0-37.0) g/dL RDW (11.5-15.5) % Plt Count (150-450) k/uL Neutrophils # (1.3-7.7) k/uL Sodium 135 L (137-145) mmol/L Potassium 5.9 H (3.5-5.1) mmol/L Chloride 96 L (98-107) mmol/L BUN 36 H (9-20) mg/dL Creatinine 1.30 H (0.66-1.25) mg/dL Glucose 140 H (74-99) mg/dL POC Glucose (mg/dL) 145 H 177 H (75-99) mg/dL Phosphorus 5.3 H (2.5-4.5) mg/dL Magnesium 1.5 L (1.6-2.3) mg/dL AST 15 L (17-59) U/L Albumin 2.7 L (3.5-5.0) g/dL 08/29/17 08/29/17 Range/Units 17:02 21:15 WBC (3.8-10.6) k/uL RBC (4.30-5.90) m/uL Hgb (13.0-17.5) gm/dL Hct (39.0-53.0) % MCHC (31.0-37.0) g/dL RDW (11.5-15.5) % Plt Count (150-450) k/uL Neutrophils # (1.3-7.7) k/uL Sodium (137-145) mmol/L Potassium (3.5-5.1) mmol/L Chloride (98-107) mmol/L BUN (9-20) mg/dL Creatinine (0.66-1.25) mg/dL Glucose (74-99) mg/dL POC Glucose (mg/dL) 238 H 205 H (75-99) mg/dL Phosphorus (2.5-4.5) mg/dL Magnesium (1.6-2.3) mg/dL AST (17-59) U/L Albumin (3.5-5.0) g/dL Laboratory Results WBC 16.4 k/uL (3.8-10.6) H 08/29/17 04:10 RBC 3.80 m/uL (4.30-5.90) L 08/29/17 04:10 Hgb 9.9 gm/dL (13.0-17.5) L 08/29/17 04:10 Hct 33.9 % (39.0-53.0) L 08/29/17 04:10 MCV 89.3 fL (80.0-100.0) 08/29/17 04:10 MCH 26.1 pg (25.0-35.0) 08/29/17 04:10 MCHC 29.2 g/dL (31.0-37.0) L 08/29/17 04:10 RDW 17.1 % (11.5-15.5) H 08/29/17 04:10 Plt Count 473 k/uL (150-450) H 08/29/17 04:10 Neutrophils % 77 % 08/29/17 04:10 Lymphocytes % 13 % 08/29/17 04:10 Monocytes % 6 % 08/29/17 04:10 Eosinophils % 2 % 08/29/17 04:10 Basophils % 1 % 08/29/17 04:10 Neutrophils # 12.6 k/uL (1.3-7.7) H 08/29/17 04:10 Lymphocytes # 2.1 k/uL (1.0-4.8) 08/29/17 04:10 Monocytes # 1.0 k/uL (0-1.0) 08/29/17 04:10 Eosinophils # 0.4 k/uL (0-0.7) 08/29/17 04:10 Basophils # 0.1 k/uL (0-0.2) 08/29/17 04:10 Hypochromasia Marked 08/29/17 04:10 Anisocytosis Slight 08/29/17 04:10 Sample Site lbrac 08/16/17 08:01 ABG pH 7.46 (7.35-7.45) H 08/16/17 08:01 ABG pCO2 46 mmHg (35-45) H 08/16/17 08:01 ABG pO2 47 mmHg (83-108) L 08/16/17 08:01 ABG HCO3 32 mmol/L (21-25) H 08/16/17 08:01 ABG Total CO2 34 mmol/L (19-24) H 08/16/17 08:01 ABG O2 Saturation 85.0 % (94-97) L 08/16/17 08:01 ABG Base Excess 8.0 mmol/L 08/16/17 08:01 FiO2 60 % 08/16/17 08:01 Sodium 135 mmol/L (137-145) L 08/29/17 04:10 Potassium 4.4 mmol/L (3.5-5.1) 08/29/17 11:55 Chloride 96 mmol/L (98-107) L 08/29/17 04:10 Carbon Dioxide 30 mmol/L (22-30) 08/29/17 04:10 Anion Gap 9 mmol/L 08/29/17 04:10 BUN 36 mg/dL (9-20) H 08/29/17 04:10 Creatinine 1.30 mg/dL (0.66-1.25) H 08/29/17 04:10 Est GFR (MDRD) Af Amer >60 (>60 ml/min/1.73 sqM) 08/29/17 04:10 Est GFR (MDRD) Non-Af 55 (>60 ml/min/1.73 sqM) 08/29/17 04:10 Glucose 140 mg/dL (74-99) H 08/29/17 04:10 POC Glucose (mg/dL) 205 mg/dL (75-99) H 08/29/17 21:15 POC Glu [employer] ID [place] Wang 08/29/17 21:[address] Glu mg/dL 143 mg/dL 08/16/17 07:03 Hemoglobin A1c 6.6 % (4.2-6.1) H 08/16/17 07:03 Calcium 8.7 mg/dL (8.4-10.2) 08/29/17 04:10 Phosphorus 5.3 mg/dL (2.5-4.5) H 08/29/17 04:10 Magnesium 1.5 mg/dL (1.6-2.3) L 08/29/17 04:10 Iron 29 ug/dL (65-175) L 08/18/17 04:20 TIBC 171 ug/dL (228-460) L 08/18/17 04:20 Iron Saturation 16.96 (15.00-50.00) 08/18/17 04:20 Ferritin 533.4 ng/mL (22.0-322.0) H 08/18/17 04:20 Total Bilirubin 0.3 mg/dL (0.2-1.3) 08/29/17 04:10 AST 15 U/L (17-59) L 08/29/17 04:10 ALT 28 U/L (21-72) 08/29/17 04:10 Alkaline Phosphatase 103 U/L (38-126) 08/29/17 04:10 Total Protein 6.9 g/dL (6.3-8.2) 08/29/17 04:10 Albumin 2.7 g/dL (3.5-5.0) L 08/29/17 04:10 Cortisol 9 ug/dL 08/17/17 04:38 Urine Color Yellow 08/14/17 23:45 Urine Appearance Clear (Clear) 08/14/17 23:45 Urine pH 5.5 (5.0-8.0) 08/14/17 23:45 Ur Specific [place] 1.011 (1.001-1.035) 08/14/17 23:45 Urine Protein Negative (Negative) 08/14/17 23:45 Urine Glucose (UA) Negative (Negative) 08/14/17 23:45 Urine Ketones Negative (Negative) 08/14/17 23:45 Urine Blood Trace (Negative) H 08/14/17 23:45 Urine Nitrite Negative (Negative) 08/14/17 23:45 Urine Bilirubin Negative (Negative) 08/14/17 23:45 Urine Urobilinogen <2.0 mg/dL (<2.0) 08/14/17 23:45 Ur Leukocyte Esterase Negative (Negative) 08/14/17 23:45 Urine RBC 9 /hpf (0-5) H 08/14/17 23:45 Urine WBC 1 /hpf (0-5) 08/14/17 23:45 Hyaline Casts 3 /lpf (0-2) H 08/14/17 23:45 Urine Mucus Rare /hpf (None) H 08/14/17 23:45 Fluid Source Bronchial Wash 08/25/17 11:00 Fluid Color Red 08/25/17 11:00 Fluid Appearance Bloody 08/25/17 11:00 Fluid RBC 36137 /uL 08/25/17 11:00 Fluid Nucleated Cells 6000 /uL 08/25/17 11:00 Fluid Polynuclear WBCs 99 % 08/25/17 11:00 Fluid Mononuclear WBCs 1 % 08/25/17 11:00 Virus Source See Below 08/25/17 11:00 Viral Test See Below 08/25/17 11:00 Virus Analysis Interp See Below 08/25/17 11:00 Microbiology 08/25/17 11:00 Bronchial Washings - Right Gram Stain - Final 08/25/17 11:00 Bronchial Washings - Right Bronchial Washings Culture - Final Corynebacterium striatum 08/23/17 18:27 Stool Stool Culture - Final 08/25/17 11:00 Bronchial Washings - Right Acid Fast Bacilli Smear - Final 08/25/17 11:00 Bronchial Washings - Right Acid Fast Bacilli Culture - Preliminary 08/25/17 11:00 Bronchial Washings - Right Fungal Culture - Preliminary Assessment and Plan (1) Fall Status: Acute (2) Acute right hip pain Status: Acute (3) Rib pain on left side Status: Acute (4) Hidradenitis suppurativa Narrative/Plan: 67-year-old male has multiple medical troubles including his history of squamous cell lung cancer fifth being monitored by oncology. He is followed in the infectious disease office for the treatment of his hidradenitis which is being treated currently with Humira. There has been some improvement of his significant disease state but not resolution. The last office visit the and I agreed that we would continue treatment at least until the next quarter. He tolerated this very well. He has had no worsening of his anemia or renal failure . While in hospital his Humira is on hold. Continues to have significant pain to the right hip because of the fall. Orthopedics is following. Orthopedics apparently does not believe that there is a fracture and just has a hyperextension injury. And they will follow as needed. Underwent another bronchoscopy today for his recurrent mucus plugging For antimicrobial therapy with the isolation of the Moraxella and Pseudomonas, ceftazidime was initiated at 2 g IV piggyback every 8 hours He is having more comfortable at this time. As has noted dressings are not needed just have him on a drainage had and allow the drainage from his large draining sinus tracts to be absorbed into the pads. The right hip pain is slightly improved. But is still limiting his ability to sit in transfer however he is sitting up in a chair for several hours today. The pulmonary status continues to wax and wane requires a fifth bronchoscopy today We'll plan at least 10-14 days of ceftaz and after his last bronch and the PICC line has been placed Patient's Humira is on hold and this will be discussed and outpatient visits if this is be prudent for further use Status: Acute
[2017-08-29] MEDS: CYCLOBENZAPRINE 10 MG TAB PO PRN (23:13)
[2017-08-30] MEDS: HYDROcodone/APAP 7.5-325MG 1 EACH TAB PO PRN ×2 (04:45→10:55)
[2017-08-30 04:53] LABS: Anisocytosis Slight; Basophils # (A) 0.1 k/uL (0-0.2); Basophils % (A) 0 %; CH 25.8; CHCM 29.7; Eosinophils # (A) 0.3 k/uL (0-0.7); Eosinophils % (A) 2 %; HCT 30.9 % (39.0-53.0); HDW 2.39; HGB 9.1 gm/dL (13.0-17.5); Hypochromasia Marked; Luc # (Auto) 0.21; Luc % (Auto) 1; Lymphocytes # (A) 1.9 k/uL (1.0-4.8); Lymphocytes % (A) 12 %; MCH 25.7 pg (25.0-35.0); MCHC 29.4 g/dL (31.0-37.0); MCV 87.3 fL (80.0-100.0); Mean Platelet Volume 7.6; Monocytes # (A) 0.8 k/uL (0-1.0); Monocytes % (A) 5 %; Neutrophils # (A) 12.7 k/uL (1.3-7.7); Neutrophils % (A) 80 %; RBC 3.54 m/uL (4.30-5.90); RDW 18.5 % (11.5-15.5); WBC (Perox) 16.49
[2017-08-30 05:05] LABS: ALT 22 U/L (21-72); AST 12 U/L (17-59); Alkaline Phosphatase 90 U/L (38-126); Anion Gap 7 mmol/L; Blood Urea Nitrogen 31 mg/dL (9-20); Calcium 8.5 mg/dL (8.4-10.2); Carbon Dioxide 31 mmol/L (22-30); Chloride 97 mmol/L (98-107); Glucose 158 mg/dL (74-99); Magnesium 1.7 mg/dL (1.6-2.3); Non-African American GFR(MDRD) 55 (>60 ml/min/1.73 sqM); Phosphorous 4.8 mg/dL (2.5-4.5); Potassium 4.6 mmol/L (3.5-5.1); Sodium 135 mmol/L (137-145); Total Bilirubin 0.2 mg/dL (0.2-1.3); Total Protein 6.8 g/dL (6.3-8.2)
[2017-08-30] MEDS ORDERED: Magnesium Replacement Protocol 1 EACH MISC MISCELLANE PRN (05:34)
[2017-08-30] MEDS: MAGNESIUM SULFATE-D5W PMX 1 GM in DEXTROSE/WATER 1 100ML.BAG IVPB SCH ×2 (06:22→08:37)
[2017-08-30] MEDS: IPRATROPIUM-ALBUTEROL 3 ML NEB INHALATION SCH ×4 (07:27→20:08)
[2017-08-30] MEDS: SYMBICORT 160-4.5 MCG INHALER INHALATION SCH ×2 (07:27→20:08)
[2017-08-30 07:30] LABS: Glucose,Whole Blood 184 mg/dL (75-99)
--- NOTE | 2017-08-30 08:28 | P.PN ---
Subjective Progress Note Date: 08/30/17 67-year-old male patient who came into the intensive care yesterday with a complete right lung collapse. I performed a bronchoscopy and therapeutic airway suctioning and copious amounts of mucous plug was aspirated from the right lung. Postop, the patient a chest x-ray today and the right lung is adequately expanded and the patient has adequate rotation of the right upper lobe. Note that he has a right middle lobe/right lower lobe resection and the stump looked quite healthy during the bronchoscope. Is currently on fleets of oxygen nasal cannula. Previous cultures have showed pseudomonas and Moraxella and the patient is currently on IV Fortaz. No fever. No chills. No night sweats. He is tolerating his breathing treatments. He is tolerating his antibiotics. No signs of septicemia. No aspiration. No other complaints otherwise. He was on BiPAP on and off throughout the night. Aggressive chest PT is being performed. No other significant events over the past 24 hours. On 08/30/2017 the patient is being seen in follow-up. Is doing extremely well. No respiratory difficulties. Chest x-ray shows expansion of the right upper lobe with adequate aeration. Limited cough without any significant hemoptysis. He is able to bring up some sputum. He is using incentive spirometer. Afebrile. Hemodynamically stable. No nausea. No vomiting. Tolerating diet. No other significant events over the past 24 hours. The patient remains on IV Fortaz for now. He is having aggressive chest PT and pulmonary toileting for now. Objective - Vital Signs Vital signs: Vital Signs Temp 98.0 F 08/30/17 04:00 Pulse 95 08/30/17 07:39 Resp 20 08/30/17 07:00 BP 117/75 08/30/17 07:00 Pulse Ox 98 08/30/17 07:00 Intake & Output 08/29/17 08/30/17 08/30/17 18:59 06:59 18:59 Intake Total 240 220 120 Output Total 1250 1465 250 Balance -1010 -1245 -130 Weight 131.4 kg Intake: IV 240 220 120 Magnesium Sulfate-D5w Pmx 100 1 gm In Dextrose/Water 1 100ml.bag @ 100 mls/hr IVPB Q1H [facility] Rx#: [id number] Sodium Chloride 0.9% 1, 240 220 20 000 ml @ 20 mls/hr IV . Q24H [facility] Rx#:[id number] Output: Urine 1250 1465 250 Other: Voiding Method Indwelling Catheter Indwelling Catheter - Exam No acute distress, oriented 3 HEENT examination is unremarkable. Mucous membranes are moist. No oral lesions. Neck supple. Full range of motion. No adenopathy or thyromegaly. Neck veins are flat. Cardiovascular examination reveals regular rhythm rate. S1-S2 normal. No S3 or S4. No discernible murmur. Lungs reveal diminished breath sounds on the right compared to the left. The patient also has symptoms diffuse rhonchi. Some crackles are also noted on the right side. Left breath sounds are mostly clear.. Abdomen soft bowel sounds are heard. No masses or tenderness. Extremities are intact. No cyanosis clubbing but there is slight edema Skin is without rash or lesion. Neurologic examination is brief but nonfocal. - Labs CBC & Chem 7: 08/30/17 04:19 08/30/17 04:19 Labs: Abnormal Lab Results - Last 24 Hours (Table) 08/29/17 08/29/17 08/29/17 Range/Units 12:01 17:02 21:15 WBC (3.8-10.6) k/uL RBC (4.30-5.90) m/uL Hgb (13.0-17.5) gm/dL Hct (39.0-53.0) % MCHC (31.0-37.0) g/dL RDW (11.5-15.5) % Neutrophils # (1.3-7.7) k/uL Sodium (137-145) mmol/L Chloride (98-107) mmol/L Carbon Dioxide (22-30) mmol/L BUN (9-20) mg/dL Creatinine (0.66-1.25) mg/dL Glucose (74-99) mg/dL POC Glucose (mg/dL) 177 H 238 H 205 H (75-99) mg/dL Phosphorus (2.5-4.5) mg/dL AST (17-59) U/L Albumin (3.5-5.0) g/dL 08/30/17 08/30/17 08/30/17 Range/Units 04:19 04:19 07:27 WBC 16.0 H (3.8-10.6) k/uL RBC 3.54 L (4.30-5.90) m/uL Hgb 9.1 L (13.0-17.5) gm/dL Hct 30.9 L (39.0-53.0) % MCHC 29.4 L (31.0-37.0) g/dL RDW 18.5 H (11.5-15.5) % Neutrophils # 12.7 H (1.3-7.7) k/uL Sodium 135 L (137-145) mmol/L Chloride 97 L (98-107) mmol/L Carbon Dioxide 31 H (22-30) mmol/L BUN 31 H (9-20) mg/dL Creatinine 1.29 H (0.66-1.25) mg/dL Glucose 158 H (74-99) mg/dL POC Glucose (mg/dL) 184 H (75-99) mg/dL Phosphorus 4.8 H (2.5-4.5) mg/dL AST 12 L (17-59) U/L Albumin 2.6 L (3.5-5.0) g/dL Assessment and Plan Plan: Assessment 1 right lung opacification secondary to mucous plug/atelectasis. Status post multiple bronchoscopies, repeat bronchoscopy was done on 08/28/2017 for the same. On 08/30/2017 the patient is doing well. The right lung specially the right upper lobe remains fully expanded. No respiratory distress. No worsening and oxygenation. Aggressive pulmonary toileting is being done. No need to repeat the bronchoscope at this point. 2 right lung pseudomonal pneumonia currently on IV Fortaz 3 acute hypoxic respiratory failure currently on 3 L of oxygen nasal cannula 4 fall with right hip pain without evidence of fracture 5 CVA, history of 6 hypertension 7 history of lung cancer status post right middle lobe/right lower lobe resection 8 chronic renal failure 9 hyperlipidemia 10 history of fall 11 CHF with systolic dysfunction 12 GERD 13 hidradenitis of breath 14 leukocytosis which is gradually improving Plan Continue current antibiotic coverage. Aggressive chest PT. BiPAP on and off during the day. Repeat chest x-ray in the morning. Chest x-ray findings are stable. Hemodynamically stable. The patient moved out of the intensive care unit today and he will be transferred today medical surgical floor.
[2017-08-30] MEDS: BACITRACIN 500 UNIT/GM OINT 28.4 GM TUBE TOPICAL SCH (08:38)
[2017-08-30] MEDS: FUROSEMIDE 40 MG TAB PO SCH (08:38)
[2017-08-30] MEDS: DILTIAZEM CD 180 MG CAP.ER.24H PO SCH (08:40)
[2017-08-30] MEDS: PANTOPRAZOLE 40 MG TABLET PO SCH (08:40)
[2017-08-30] MEDS: METOPROLOL SUCCINATE (ER) 25 MG TAB.ER.24H PO SCH ×2 (08:40→22:18)
[2017-08-30] MEDS: LIDOCAINE 5% PATCH TOPICAL SCH (08:41)
[2017-08-30] MEDS: ALLOPURINOL 100 MG TAB PO SCH (08:41)
[2017-08-30] MEDS: LINAGLIPTIN 5 MG TABLET PO SCH (08:41)
[2017-08-30] MEDS: guaiFENesin 600 MG TABLET.ER PO SCH ×2 (08:41→21:29)
[2017-08-30] MEDS: CITALOPRAM HYDROBROMIDE 20 MG TAB PO SCH (08:41)
[2017-08-30] MEDS: CALCIUM CARB-VIT D 500MG-200UN 1 EACH TAB PO SCH ×2 (08:42→17:06)
[2017-08-30] MEDS: NYSTATIN 100,000 UNIT/ML SUSP 500,000 UNIT/5 ML CUP PO SCH ×3 (08:42→17:06)
[2017-08-30] MEDS: MEGESTROL 400 MG/10 ML CUP PO SCH (08:42)
[2017-08-30] MEDS: predniSONE 10 MG TAB PO SCH (08:42)
[2017-08-30] MEDS: INSULIN LISPRO (humaLOG) 300 UNIT/3 ML VIAL SQ SCH ×4 (08:43→21:29)
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
--- NOTE | 2017-08-30 10:29 | XR ---
EXAMINATION TYPE: XR chest 1V portable DATE OF EXAM: 08/30/2017 COMPARISON: Prior chest x-ray 08/29/2017 HISTORY: Recurrent mucous plug, abnormal chest x-ray TECHNIQUE: Single frontal view of the chest is obtained. FINDINGS: There is no significant change. Pleural parenchymal changes are similar to prior exam. The heart remains enlarged. IMPRESSION: Correlate to exclude pneumonia, pulmonary venous associated effusion. Cardiomegaly.
[2017-08-30 12:22] LABS: Glucose,Whole Blood 135 mg/dL (75-99)
[2017-08-30] MEDS: METOLAZONE 2.5 MG TAB PO SCH (13:43)
[2017-08-30] MEDS: LACTATED RINGERS 1,000 ML IV SCH (17:06)
[2017-08-30 17:11] LABS: Glucose,Whole Blood 246 mg/dL (75-99)
[2017-08-30] MEDS: oxyCODONE-APAP 10-325MG 1 EACH TAB PO PRN ×2 (17:42→23:16)
--- NOTE | 2017-08-30 20:19 | P.PN ---
Subjective Progress Note Date: 08/30/17 Principal diagnosis: Fall with left hip pain 67-year-old male who is well-known to the infectious disease service with as many hospitalizations as well as his hidradenitis. He's had a couple hospitalizations in the last several months that included atrial fibrillation with nonsustained V. tach. He has underlying cardiac murmur. He's had vertigo and acute renal failure. He's had some time at the extended care facility in the past year but is now home Doing relatively well under the care of his . He was hospitalized earlier this year with a bout of congestive heart failure and is in relatively well since that time. The. The patient was bathing and suffered a fall and now presents with severe right sided hip pain. He's been evaluated by orthopedics. The hidradenitis is now being treated with Humira injections at home. This is on Fridays. This has been occurring for the last couple of months now. There is been decreasing amount of drainage. His skin is becoming less erythematous and inflamed. The amount of drainage is improving The family is pleased that there is showing some improvement given the many year history of lack of improvement. However was still must apply large amounts of dressings on a daily basis to contain his drainage. The patient never became progressively more short of breath. Was transferred to intensive care unit. He's been seen by pulmonary and underwent bronchoscopy for removal of large mucous plugging to the right lung. Patient remains on BiPAP but is more stable at this time. Antimicrobial therapy was initiated with concerns to pneumonia with this pulmonary process. Cultures have revealed Moraxella and pseudomonas aeruginosa He has minimal improved pain today. Pulmonary status again was giving him difficulties, and again had bronchoscopy today for the fifth time to remove more mucous plugs. Doing well after the bronchoscopy. However is certainly with weakness overall. Fortunately he was able to tolerate sitting up in the chair for several hours yesterday. That he's been tired. Respiratory status is improved and no further bronchoscopy is planned. Objective - Vital Signs Vital signs: Vital Signs Temp 98.4 F 08/30/17 20:00 Pulse 88 08/30/17 20:00 Resp 22 08/30/17 20:00 BP 103/75 08/30/17 20:00 Pulse Ox 97 08/30/17 20:00 Intake & Output 08/30/17 08/30/17 08/31/17 06:59 18:59 06:59 Intake Total 220 320 Output Total 1465 1530 Balance -1245 -1210 Intake: IV 220 320 Magnesium Sulfate-D5w Pmx 100 1 gm In Dextrose/Water 1 100ml.bag @ 100 mls/hr IVPB Q1H [facility] Rx#: [id number] Sodium Chloride 0.9% 1, 220 220 000 ml @ 20 mls/hr IV . Q24H [facility] Rx#:[id number] Output: Urine 1465 1530 Other: Voiding Method Indwelling Catheter Indwelling Catheter - Exam Pleasant 67-year-old gentleman who suffers from obesity who was miserable at this time. BiPAP though is being tolerated. Hip pain is better treated. HEENT: Anicteric conjunctiva are pink and moist nasal mucosa grossly intact without significant lesions, there is no thrush. Neck: The neck is supple without significant lymphadenopathy or thyromegaly. Lungs: There is symmetrical air entry with evidence of crackles at the the right base Some expiratory wheezes are heard. Voice is weak Heart: Irregular with an audible S1 and S2 no S3 soft S4 There is no significant murmur click or rub, PMI was nondisplaced. Abdomen: Obese, Positive bowel sounds soft and nontender without palpable masses or organomegaly. There was no guarding or rebound. Extremities: The upper extremities have excellent pulses they are symmetric, no significant petechiae or telangiectasia. No splinter hemorrhages were noted. The left lower extremity is without significant tenderness at this time. Right lower extremity has severe pain upon manipulation. Any attempt to internally or externally rotate the limb causes him to have some pain. Of note he is able to move it himself with only minimal discomfort. There is at the chronic drainage without change from last evaluation. He has extensive areas of drainage on the buttocks bilaterally and inner thighs. Neuro: Awake alert oriented to person place and time. There are no acute new gross focal sensory motor deficits. - Labs CBC & Chem 7: 08/30/17 04:19 08/30/17 04:19 Labs: Abnormal Lab Results - Last 24 Hours (Table) 08/29/17 08/30/17 08/30/17 Range/Units 21:15 04:19 04:19 WBC 16.0 H (3.8-10.6) k/uL RBC 3.54 L (4.30-5.90) m/uL Hgb 9.1 L (13.0-17.5) gm/dL Hct 30.9 L (39.0-53.0) % MCHC 29.4 L (31.0-37.0) g/dL RDW 18.5 H (11.5-15.5) % Neutrophils # 12.7 H (1.3-7.7) k/uL Sodium 135 L (137-145) mmol/L Chloride 97 L (98-107) mmol/L Carbon Dioxide 31 H (22-30) mmol/L BUN 31 H (9-20) mg/dL Creatinine 1.29 H (0.66-1.25) mg/dL Glucose 158 H (74-99) mg/dL POC Glucose (mg/dL) 205 H (75-99) mg/dL Phosphorus 4.8 H (2.5-4.5) mg/dL AST 12 L (17-59) U/L Albumin 2.6 L (3.5-5.0) g/dL 08/30/17 08/30/17 08/30/17 Range/Units 07:27 12:19 17:08 WBC (3.8-10.6) k/uL RBC (4.30-5.90) m/uL Hgb (13.0-17.5) gm/dL Hct (39.0-53.0) % MCHC (31.0-37.0) g/dL RDW (11.5-15.5) % Neutrophils # (1.3-7.7) k/uL Sodium (137-145) mmol/L Chloride (98-107) mmol/L Carbon Dioxide (22-30) mmol/L BUN (9-20) mg/dL Creatinine (0.66-1.25) mg/dL Glucose (74-99) mg/dL POC Glucose (mg/dL) 184 H 135 H 246 H (75-99) mg/dL Phosphorus (2.5-4.5) mg/dL AST (17-59) U/L Albumin (3.5-5.0) g/dL Laboratory Results WBC 16.0 k/uL (3.8-10.6) H 08/30/17 04:19 RBC 3.54 m/uL (4.30-5.90) L 08/30/17 04:19 Hgb 9.1 gm/dL (13.0-17.5) L 08/30/17 04:19 Hct 30.9 % (39.0-53.0) L 08/30/17 04:19 MCV 87.3 fL (80.0-100.0) 08/30/17 04:19 MCH 25.7 pg (25.0-35.0) 08/30/17 04:19 MCHC 29.4 g/dL (31.0-37.0) L 08/30/17 04:19 RDW 18.5 % (11.5-15.5) H 08/30/17 04:19 Plt Count 449 k/uL (150-450) 08/30/17 04:19 Neutrophils % 80 % 08/30/17 04:19 Lymphocytes % 12 % 08/30/17 04:19 Monocytes % 5 % 08/30/17 04:19 Eosinophils % 2 % 08/30/17 04:19 Basophils % 0 % 08/30/17 04:19 Neutrophils # 12.7 k/uL (1.3-7.7) H 08/30/17 04:19 Lymphocytes # 1.9 k/uL (1.0-4.8) 08/30/17 04:19 Monocytes # 0.8 k/uL (0-1.0) 08/30/17 04:19 Eosinophils # 0.3 k/uL (0-0.7) 08/30/17 04:19 Basophils # 0.1 k/uL (0-0.2) 08/30/17 04:19 Hypochromasia Marked 08/30/17 04:19 Anisocytosis Slight 08/30/17 04:19 Sample Site lbrac 08/16/17 08:01 ABG pH 7.46 (7.35-7.45) H 08/16/17 08:01 ABG pCO2 46 mmHg (35-45) H 08/16/17 08:01 ABG pO2 47 mmHg (83-108) L 08/16/17 08:01 ABG HCO3 32 mmol/L (21-25) H 08/16/17 08:01 ABG Total CO2 34 mmol/L (19-24) H 08/16/17 08:01 ABG O2 Saturation 85.0 % (94-97) L 08/16/17 08:01 ABG Base Excess 8.0 mmol/L 08/16/17 08:01 FiO2 60 % 08/16/17 08:01 Sodium 135 mmol/L (137-145) L 08/30/17 04:19 Potassium 4.6 mmol/L (3.5-5.1) 08/30/17 04:19 Chloride 97 mmol/L (98-107) L 08/30/17 04:19 Carbon Dioxide 31 mmol/L (22-30) H 08/30/17 04:19 Anion Gap 7 mmol/L 08/30/17 04:19 BUN 31 mg/dL (9-20) H 08/30/17 04:19 Creatinine 1.29 mg/dL (0.66-1.25) H 08/30/17 04:19 Est GFR (MDRD) Af Amer >60 (>60 ml/min/1.73 sqM) 08/30/17 04:19 Est GFR (MDRD) Non-Af 55 (>60 ml/min/1.73 sqM) 08/30/17 04:19 Glucose 158 mg/dL (74-99) H 08/30/17 04:19 POC Glucose (mg/dL) 246 mg/dL (75-99) H 08/30/17 17:08 POC Glu Pattern Developer ID Yee Radford 08/30/17 17:[address] Glu mg/dL 143 mg/dL 08/16/17 07:03 Hemoglobin A1c 6.6 % (4.2-6.1) H 08/16/17 07:03 Calcium 8.5 mg/dL (8.4-10.2) 08/30/17 04:19 Phosphorus 4.8 mg/dL (2.5-4.5) H 08/30/17 04:19 Magnesium 1.7 mg/dL (1.6-2.3) 08/30/17 04:19 Iron 29 ug/dL (65-175) L 08/18/17 04:20 TIBC 171 ug/dL (228-460) L 08/18/17 04:20 Iron Saturation 16.96 (15.00-50.00) 08/18/17 04:20 Ferritin 533.4 ng/mL (22.0-322.0) H 08/18/17 04:20 Total Bilirubin 0.2 mg/dL (0.2-1.3) 08/30/17 04:19 AST 12 U/L (17-59) L 08/30/17 04:19 ALT 22 U/L (21-72) 08/30/17 04:19 Alkaline Phosphatase 90 U/L (38-126) 08/30/17 04:19 Total Protein 6.8 g/dL (6.3-8.2) 08/30/17 04:19 Albumin 2.6 g/dL (3.5-5.0) L 08/30/17 04:19 Cortisol 9 ug/dL 08/17/17 04:38 Urine Color Yellow 08/14/17 23:45 Urine Appearance Clear (Clear) 08/14/17 23:45 Urine pH 5.5 (5.0-8.0) 08/14/17 23:45 Ur Specific [place] 1.011 (1.001-1.035) 08/14/17 23:45 Urine Protein Negative (Negative) 08/14/17 23:45 Urine Glucose (UA) Negative (Negative) 08/14/17 23:45 Urine Ketones Negative (Negative) 08/14/17 23:45 Urine Blood Trace (Negative) H 08/14/17 23:45 Urine Nitrite Negative (Negative) 08/14/17 23:45 Urine Bilirubin Negative (Negative) 08/14/17 23:45 Urine Urobilinogen <2.0 mg/dL (<2.0) 08/14/17 23:45 Ur Leukocyte Esterase Negative (Negative) 08/14/17 23:45 Urine RBC 9 /hpf (0-5) H 08/14/17 23:45 Urine WBC 1 /hpf (0-5) 08/14/17 23:45 Hyaline Casts 3 /lpf (0-2) H 08/14/17 23:45 Urine Mucus Rare /hpf (None) H 08/14/17 23:45 Fluid Source Bronchial Wash 08/25/17 11:00 Fluid Color Red 08/25/17 11:00 Fluid Appearance Bloody 08/25/17 11:00 Fluid RBC 58039 /uL 08/25/17 11:00 Fluid Nucleated Cells 6000 /uL 08/25/17 11:00 Fluid Polynuclear WBCs 99 % 08/25/17 11:00 Fluid Mononuclear WBCs 1 % 08/25/17 11:00 Virus Source See Below 08/25/17 11:00 Viral Test See Below 08/25/17 11:00 Virus Analysis Interp See Below 08/25/17 11:00 Microbiology 08/25/17 11:00 Bronchial Washings - Right Gram Stain - Final 08/25/17 11:00 Bronchial Washings - Right Bronchial Washings Culture - Final Corynebacterium striatum 08/23/17 18:27 Stool Stool Culture - Final 08/25/17 11:00 Bronchial Washings - Right Acid Fast Bacilli Smear - Final 08/25/17 11:00 Bronchial Washings - Right Acid Fast Bacilli Culture - Preliminary 08/25/17 11:00 Bronchial Washings - Right Fungal Culture - Preliminary - Imaging and Cardiology Chest x-ray: image reviewed (Improved) Assessment and Plan (1) Fall Status: Acute (2) Acute right hip pain Status: Acute (3) Rib pain on left side Status: Acute (4) Hidradenitis suppurativa Narrative/Plan: 67-year-old male has multiple medical troubles including his history of squamous cell lung cancer fifth being monitored by oncology. He is followed in the infectious disease office for the treatment of his hidradenitis which is being treated currently with Humira. There has been some improvement of his significant disease state but not resolution. The last office visit the and I agreed that we would continue treatment at least until the next quarter. He tolerated this very well. He has had no worsening of his anemia or renal failure . While in hospital his Humira is on hold. Continues to have significant pain to the right hip because of the fall. Orthopedics is following. Orthopedics apparently does not believe that there is a fracture and just has a hyperextension injury. And they will follow as needed. Underwent another bronchoscopy today for his recurrent mucus plugging For antimicrobial therapy with the isolation of the Moraxella and Pseudomonas, ceftazidime was initiated at 2 g IV piggyback every 8 hours He is much more comfortable today from the right hip pain. As has noted dressings are not needed just have him on a drainage had and allow the drainage from his large draining sinus tracts to be absorbed into the pads. The pulmonary status continues to wax and wane requires a fifth bronchoscopy , but is now more stable no further bronchoscopies plan. We'll plan at least 10-14 days of ceftaz and after his last bronch and the PICC line has been placed Patient's Humira is on hold and this will be discussed and outpatient visits if this is be prudent for further use Status: Acute
[2017-08-30 21:28] LABS: Glucose,Whole Blood 183 mg/dL (75-99)
[2017-08-30] MEDS: MULTIVITAMINS, THERA 1 EACH TAB PO SCH (21:28)
[2017-08-30] MEDS: SODIUM CHLORIDE 0.9% 1,000 ML IV SCH (22:19)
[2017-08-30] MEDS: LORazepam 2 MG/ML INJ IV PRN (23:15)
[2017-08-31 05:03] LABS: Anisocytosis Slight; Basophils # (A) 0.1 k/uL (0-0.2); Basophils % (A) 1 %; CH 25.2; CHCM 28.2; Eosinophils # (A) 0.4 k/uL (0-0.7); Eosinophils % (A) 2 %; HCT 33.5 % (39.0-53.0); HDW 2.33; HGB 9.9 gm/dL (13.0-17.5); Hypochromasia Marked; Luc # (Auto) 0.33; Luc % (Auto) 2; Lymphocytes # (A) 1.7 k/uL (1.0-4.8); Lymphocytes % (A) 10 %; MCH 26.5 pg (25.0-35.0); MCHC 29.6 g/dL (31.0-37.0); MCV 89.7 fL (80.0-100.0); Monocytes % (A) 5 %; Neutrophils # (A) 14.2 k/uL (1.3-7.7); Neutrophils % (A) 80 %; RBC 3.74 m/uL (4.30-5.90); RDW 17.3 % (11.5-15.5); WBC 17.7 k/uL (3.8-10.6); WBC (Perox) 18.25
[2017-08-31 05:22] LABS: ALT 30 U/L (21-72); AST 12 U/L (17-59); Alkaline Phosphatase 104 U/L (38-126); Anion Gap 8 mmol/L; Blood Urea Nitrogen 31 mg/dL (9-20); Carbon Dioxide 30 mmol/L (22-30); Chloride 97 mmol/L (98-107); Glucose 151 mg/dL (74-99); Non-African American GFR(MDRD) 50 (>60 ml/min/1.73 sqM); Phosphorous 5.4 mg/dL (2.5-4.5); Potassium 4.5 mmol/L (3.5-5.1); Sodium 135 mmol/L (137-145); Total Bilirubin 0.2 mg/dL (0.2-1.3)
[2017-08-31 07:41] LABS: Glucose,Whole Blood 141 mg/dL (75-99)
[2017-08-31] MEDS: IPRATROPIUM-ALBUTEROL 3 ML NEB INHALATION SCH ×4 (08:01→19:24)
[2017-08-31] MEDS: SYMBICORT 160-4.5 MCG INHALER INHALATION SCH ×2 (08:07→19:24)
[2017-08-31] MEDS: INSULIN LISPRO (humaLOG) 300 UNIT/3 ML VIAL SQ SCH ×5 (08:13→22:51)
[2017-08-31] MEDS: PANTOPRAZOLE 40 MG TABLET PO SCH (08:13)
[2017-08-31] MEDS: CALCIUM CARB-VIT D 500MG-200UN 1 EACH TAB PO SCH ×2 (08:13→17:08)
--- NOTE | 2017-08-31 09:00 | P.PN ---
<NgocPrincess - Last Filed: 08/31/17 08:51> Subjective Progress Note Date: 08/31/17 Principal diagnosis: Right-sided consolidation with pleural base thickening 67-year-old male patient who came into the intensive care yesterday with a complete right lung collapse. I performed a bronchoscopy and therapeutic airway suctioning and copious amounts of mucous plug was aspirated from the right lung. Postop, the patient a chest x-ray today and the right lung is adequately expanded and the patient has adequate rotation of the right upper lobe. Note that he has a right middle lobe/right lower lobe resection and the stump looked quite healthy during the bronchoscope. Is currently on fleets of oxygen nasal cannula. Previous cultures have showed pseudomonas and Moraxella and the patient is currently on IV Fortaz. No fever. No chills. No night sweats. He is tolerating his breathing treatments. He is tolerating his antibiotics. No signs of septicemia. No aspiration. No other complaints otherwise. He was on BiPAP on and off throughout the night. Aggressive chest PT is being performed. No other significant events over the past 24 hours. On 08/30/2017 the patient is being seen in follow-up. Is doing extremely well. No respiratory difficulties. Chest x-ray shows expansion of the right upper lobe with adequate aeration. Limited cough without any significant hemoptysis. He is able to bring up some sputum. He is using incentive spirometer. Afebrile. Hemodynamically stable. No nausea. No vomiting. Tolerating diet. No other significant events over the past 24 hours. The patient remains on IV Fortaz for now. He is having aggressive chest PT and pulmonary toileting for now. The patient was seen again today 08/31/2017 in follow-up in the intensive care unit. He is currently resting quite comfortably in bed. He is awake and alert in no acute distress. He did utilize BiPAP 10/25 at 40% FiO2 throughout the evening. He is currently on 6 L high flow nasal cannula to maintain O2 saturations in the 90s. He's been hemodynamically stable. Afebrile. Bronchial findings from 08/25/2017 revealed no significant findings. Previously he had pseudomonas aeruginosa from 08/16/2017. He remains on ceftazidime. His chest x-ray continues to show improvement in his right lobe aeration. He continues to receive aggressive chest physiotherapy and pulmonary toileting. He continues to work well of the incentive spirometer and cough and deep breathing exercises. Objective - Vital Signs Vital signs: Vital Signs Temp 98.1 F 08/31/17 08:00 Pulse 90 08/31/17 08:19 Resp 21 08/31/17 08:00 BP 106/71 08/31/17 08:00 Pulse Ox 99 08/31/17 08:00 Intake & Output 08/30/17 08/31/17 08/31/17 18:59 06:59 18:59 Intake Total 320 520 20 Output Total 1530 1005 75 Balance -1210 -485 -55 Intake: IV 320 340 20 Magnesium Sulfate-D5w Pmx 100 1 gm In Dextrose/Water 1 100ml.bag @ 100 mls/hr IVPB Q1H [facility] Rx#: [id number] Sodium Chloride 0.9% 1, 220 240 20 000 ml @ 20 mls/hr IV . Q24H [facility] Rx#:[id number] cefTAZidime 2 gm In 100 Sodium Chloride 0.9% 100 ml @ 100 mls/hr IVPB Q8HR [facility] Rx#:[id number] Oral 180 Output: Urine 1530 1005 75 Other: Voiding Method Indwelling Catheter Indwelling Catheter - Exam GENERAL EXAM: Alert, comfortable in no apparent distress. HEAD: Normocephalic. EYES: Normal reaction of pupils, equal size. NOSE: Clear with pink turbinates. THROAT: No erythema or exudates. NECK: No masses, no JVD. CHEST: No chest wall deformity. LUNGS: Equal air entry with bilateral scattered rhonchi crackles in the right posterior base. CVS: S1 and S2 normal with no audible mumurs, regular rhythm. ABDOMEN: No hepatosplenomegaly, normal bowel sounds, no guarding or rigidity. SPINE: No scoliosis or deformity SKIN: No rashes CENTRAL NERVOUS SYSTEM: No focal deficits, tone is normal in all 4 extremities. Extremities: There is trace peripheral edema. No clubbing, no cyanosis. Peripheral pulses are intact. - Labs CBC & Chem 7: 08/31/17 04:20 08/31/17 04:23 Labs: Abnormal Lab Results - Last 24 Hours (Table) 08/30/17 08/30/17 08/30/17 Range/Units 12:19 17:08 21:26 WBC (3.8-10.6) k/uL RBC (4.30-5.90) m/uL Hgb (13.0-17.5) gm/dL Hct (39.0-53.0) % MCHC (31.0-37.0) g/dL RDW (11.5-15.5) % Plt Count (150-450) k/uL Neutrophils # (1.3-7.7) k/uL Sodium (137-145) mmol/L Chloride (98-107) mmol/L BUN (9-20) mg/dL Creatinine (0.66-1.25) mg/dL Glucose (74-99) mg/dL POC Glucose (mg/dL) 135 H 246 H 183 H (75-99) mg/dL Phosphorus (2.5-4.5) mg/dL AST (17-59) U/L Albumin (3.5-5.0) g/dL 08/31/17 08/31/17 08/31/17 Range/Units 04:20 04:23 07:38 WBC 17.7 H (3.8-10.6) k/uL RBC 3.74 L (4.30-5.90) m/uL Hgb 9.9 L (13.0-17.5) gm/dL Hct 33.5 L (39.0-53.0) % MCHC 29.6 L (31.0-37.0) g/dL RDW 17.3 H (11.5-15.5) % Plt Count 479 H (150-450) k/uL Neutrophils # 14.2 H (1.3-7.7) k/uL Sodium 135 L (137-145) mmol/L Chloride 97 L (98-107) mmol/L BUN 31 H (9-20) mg/dL Creatinine 1.40 H (0.66-1.25) mg/dL Glucose 151 H (74-99) mg/dL POC Glucose (mg/dL) 141 H (75-99) mg/dL Phosphorus 5.4 H (2.5-4.5) mg/dL AST 12 L (17-59) U/L Albumin 2.7 L (3.5-5.0) g/dL Assessment and Plan Plan: Impression: #1 Acute on chronic systolic congestive heart failure. #2 Atrial fibrillation with varying ventricular response. #3 Acute right lung pneumonia, secondary to pseudomonas aeruginosa. The plan is for 10-14 days of IV ceftaz. PICC line inserted. Status post bronchoscopy 4. 08/31/2017 x-ray continues to show improvement in aeration in the right lung. #4 Acute hypoxic respiratory failure secondary to above. #5 Diabetes mellitus, type II. #6 History of CVA. #7 Hypertension. #8 History of lung, non-small cell carcinoma. History of right lower lobectomy #9 Hyperlipidemia. #10 Renal insufficiency. #11 Ventricular tachycardia. #12 Acute fall status post with right hip pain, negative for fracture. Plan: The patient was seen and evaluated by Dr. Mckeon. His chest x-ray and labs was reviewed. There is improvement in the right lung aeration. He is cleared for transfer out of the intensive care unit today. Continue with BiPAP at the bedside. Continue pulmonary toileting. We'll continue with his current medications. ID has requested 10-14 days of ceftaz. PICC line was inserted. We'll increase his activity as tolerated. We'll continue to follow. I performed a history and physical on the patient. Lung sounds continue with scattered rhonchi more so on the right with crackles in the right lung base. I discussed the findings along with the assessment and plan of care with my nurse practitioner, Princess Grossman. I agree with the above note. <Anupam Mckeon - Last Filed: 08/31/17 09:11> Objective - Vital Signs Vital signs: Vital Signs Temp 98.1 F 08/31/17 08:00 Pulse 90 08/31/17 08:19 Resp 21 08/31/17 08:00 BP 106/71 08/31/17 08:00 Pulse Ox 99 08/31/17 08:00 Intake & Output 08/30/17 08/31/17 08/31/17 18:59 06:59 18:59 Intake Total 320 520 120 Output Total 1530 1005 155 Balance -1210 -485 -35 Intake: IV 320 340 120 Magnesium Sulfate-D5w Pmx 100 1 gm In Dextrose/Water 1 100ml.bag @ 100 mls/hr IVPB Q1H [facility] Rx#: [id number] Sodium Chloride 0.9% 1, 220 240 20 000 ml @ 20 mls/hr IV . Q24H [facility] Rx#:[id number] cefTAZidime 2 gm In 100 100 Sodium Chloride 0.9% 100 ml @ 100 mls/hr IVPB Q8HR [facility] Rx#:[id number] Oral 180 Output: Urine 1530 1005 155 Other: Voiding Method Indwelling Catheter Indwelling Catheter Indwelling Catheter - Labs CBC & Chem 7: 08/31/17 04:20 08/31/17 04:23 Labs: Abnormal Lab Results - Last 24 Hours (Table) 08/30/17 08/30/17 08/30/17 Range/Units 12:19 17:08 21:26 WBC (3.8-10.6) k/uL RBC (4.30-5.90) m/uL Hgb (13.0-17.5) gm/dL Hct (39.0-53.0) % MCHC (31.0-37.0) g/dL RDW (11.5-15.5) % Plt Count (150-450) k/uL Neutrophils # (1.3-7.7) k/uL Sodium (137-145) mmol/L Chloride (98-107) mmol/L BUN (9-20) mg/dL Creatinine (0.66-1.25) mg/dL Glucose (74-99) mg/dL POC Glucose (mg/dL) 135 H 246 H 183 H (75-99) mg/dL Phosphorus (2.5-4.5) mg/dL AST (17-59) U/L Albumin (3.5-5.0) g/dL 08/31/17 08/31/17 08/31/17 Range/Units 04:20 04:23 07:38 WBC 17.7 H (3.8-10.6) k/uL RBC 3.74 L (4.30-5.90) m/uL Hgb 9.9 L (13.0-17.5) gm/dL Hct 33.5 L (39.0-53.0) % MCHC 29.6 L (31.0-37.0) g/dL RDW 17.3 H (11.5-15.5) % Plt Count 479 H (150-450) k/uL Neutrophils # 14.2 H (1.3-7.7) k/uL Sodium 135 L (137-145) mmol/L Chloride 97 L (98-107) mmol/L BUN 31 H (9-20) mg/dL Creatinine 1.40 H (0.66-1.25) mg/dL Glucose 151 H (74-99) mg/dL POC Glucose (mg/dL) 141 H (75-99) mg/dL Phosphorus 5.4 H (2.5-4.5) mg/dL AST 12 L (17-59) U/L Albumin 2.7 L (3.5-5.0) g/dL Assessment and Plan Plan: This is a joint evaluation that was done along with the nurse practitioner. I at test to the information mentioned above. I reviewed the chest x-ray from today and the patient continues to have adequately expanded right upper lobe. As mentioned the patient has a bilobectomy for non-small cell lung cancer including the right middle lobe and the right lower lobe that was resected surgically. No evidence of any ongoing mucous plugging. The patient is still on IV antibiotics. Breathing is stable. He is on 3 L of oxygen nasal cannula. Hemodynamically stable. The plan is to move this patient out of the intensive care unit today. We'll continue to follow on the floor.
[2017-08-31] MEDS: LIDOCAINE 5% PATCH TOPICAL SCH (09:22)
[2017-08-31] MEDS: BACITRACIN 500 UNIT/GM OINT 28.4 GM TUBE TOPICAL SCH (09:27)
[2017-08-31] MEDS: CITALOPRAM HYDROBROMIDE 20 MG TAB PO SCH (09:27)
[2017-08-31] MEDS: ALLOPURINOL 100 MG TAB PO SCH (09:27)
[2017-08-31] MEDS: guaiFENesin 600 MG TABLET.ER PO SCH ×2 (09:28→20:47)
[2017-08-31] MEDS: METOPROLOL SUCCINATE (ER) 25 MG TAB.ER.24H PO SCH ×2 (09:28→20:48)
[2017-08-31] MEDS: FUROSEMIDE 40 MG TAB PO SCH (09:28)
[2017-08-31] MEDS: predniSONE 10 MG TAB PO SCH (09:29)
[2017-08-31] MEDS: LINAGLIPTIN 5 MG TABLET PO SCH (09:29)
[2017-08-31] MEDS: MEGESTROL 400 MG/10 ML CUP PO SCH (09:29)
[2017-08-31] MEDS: DILTIAZEM CD 180 MG CAP.ER.24H PO SCH (09:29)
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
--- NOTE | 2017-08-31 11:31 | XR ---
EXAMINATION TYPE: XR chest 1V portable DATE OF EXAM: 08/31/2017 COMPARISON: 08/30/2017 HISTORY: Recurrent mucus plugging TECHNIQUE: Single frontal view of the chest is obtained. FINDINGS: There is slight improved aeration of the right upper lobe in comparison to the prior exam. Persistent right hemithorax volume loss is seen as well as multifocal right-sided airspace disease a nd small layering pleural effusion. Cardiomegaly persists. Left lung is clear. IMPRESSION: Slightly improved aeration of the right upper lung with persistent multifocal patchy opa cities and small right pleural effusion. Findings may relate to multifocal pneumonia or atelectasis a s a result of endobronchial mucous plugging as there is right hemithorax volume loss.
[2017-08-31] MEDS: oxyCODONE-APAP 10-325MG 1 EACH TAB PO PRN (12:03)
[2017-08-31] MEDS: CALCITRIOL 0.25 MCG CAP PO SCH (12:03)
[2017-08-31 12:38] LABS: Glucose,Whole Blood 218 mg/dL (75-99)
[2017-08-31 16:47] LABS: Glucose,Whole Blood 201 mg/dL (75-99)
--- NOTE | 2017-08-31 20:20 | P.PN ---
Subjective Progress Note Date: 08/31/17 Principal diagnosis: Fall with left hip pain 67-year-old male who is well-known to the infectious disease service with as many hospitalizations as well as his hidradenitis. He's had a couple hospitalizations in the last several months that included atrial fibrillation with nonsustained V. tach. He has underlying cardiac murmur. He's had vertigo and acute renal failure. He's had some time at the extended care facility in the past year but is now home Doing relatively well under the care of his . He was hospitalized earlier this year with a bout of congestive heart failure and is in relatively well since that time. The. The patient was bathing and suffered a fall and now presents with severe right sided hip pain. He's been evaluated by orthopedics. The hidradenitis is now being treated with Humira injections at home. This is on Fridays. This has been occurring for the last couple of months now. There is been decreasing amount of drainage. His skin is becoming less erythematous and inflamed. The amount of drainage is improving The family is pleased that there is showing some improvement given the many year history of lack of improvement. However was still must apply large amounts of dressings on a daily basis to contain his drainage. The patient never became progressively more short of breath. Was transferred to intensive care unit. He's been seen by pulmonary and underwent bronchoscopy for removal of large mucous plugging to the right lung. Patient remains on BiPAP but is more stable at this time. Antimicrobial therapy was initiated with concerns to pneumonia with this pulmonary process. Cultures have revealed Moraxella and pseudomonas aeruginosa He has minimal improved pain today. Pulmonary status again was giving him difficulties, and again had bronchoscopy today for the fifth time to remove more mucous plugs. Doing well after the bronchoscopy. However is certainly with weakness overall. Fortunately he was able to tolerate sitting up in the chair for several hours yesterday. That he's been tired. Respiratory status is improved and no further bronchoscopy is planned. Is waiting for transfer to [facility] care. He has no acute changes except he is still quite fatigued Objective - Vital Signs Vital signs: Vital Signs Temp 98.8 F 08/31/17 15:36 Pulse 94 08/31/17 19:36 Resp 21 08/31/17 15:47 BP 103/57 08/31/17 15:36 Pulse Ox 94 L 08/31/17 15:36 Intake & Output 08/31/17 08/31/17 09/01/17 06:59 18:59 06:59 Intake Total 520 140 Output Total 1005 280 Balance -485 -140 Intake: IV 340 140 Sodium Chloride 0.9% 1, 240 40 000 ml @ 20 mls/hr IV . Q24H [facility] Rx#:[id number] cefTAZidime 2 gm In 100 100 Sodium Chloride 0.9% 100 ml @ 100 mls/hr IVPB Q8HR [facility] Rx#:[id number] Oral 180 Output: Urine 1005 280 Other: Voiding Method Indwelling Catheter Urinal # Voids 0 - Exam Pleasant 67-year-old gentleman who suffers from obesity who was miserable at this time. BiPAP though is being tolerated. Hip pain is better treated. HEENT: Anicteric conjunctiva are pink and moist nasal mucosa grossly intact without significant lesions, there is no thrush. Neck: The neck is supple without significant lymphadenopathy or thyromegaly. Lungs: There is symmetrical air entry with evidence of crackles at the the right base Some expiratory wheezes are heard. Voice is weak Heart: Irregular with an audible S1 and S2 no S3 soft S4 There is no significant murmur click or rub, PMI was nondisplaced. Abdomen: Obese, Positive bowel sounds soft and nontender without palpable masses or organomegaly. There was no guarding or rebound. Extremities: The upper extremities have excellent pulses they are symmetric, no significant petechiae or telangiectasia. No splinter hemorrhages were noted. The left lower extremity is without significant tenderness at this time. Right lower extremity has severe pain upon manipulation. Any attempt to internally or externally rotate the limb causes him to have some pain. Of note he is able to move it himself with only minimal discomfort. There is at the chronic drainage without change from last evaluation. He has extensive areas of drainage on the buttocks bilaterally and inner thighs. Neuro: Awake alert oriented to person place and time. There are no acute new gross focal sensory motor deficits. - Labs CBC & Chem 7: 08/31/17 04:20 08/31/17 04:23 Labs: Abnormal Lab Results - Last 24 Hours (Table) 08/30/17 08/31/17 08/31/17 Range/Units 21:26 04:20 04:23 WBC 17.7 H (3.8-10.6) k/uL RBC 3.74 L (4.30-5.90) m/uL Hgb 9.9 L (13.0-17.5) gm/dL Hct 33.5 L (39.0-53.0) % MCHC 29.6 L (31.0-37.0) g/dL RDW 17.3 H (11.5-15.5) % Plt Count 479 H (150-450) k/uL Neutrophils # 14.2 H (1.3-7.7) k/uL Sodium 135 L (137-145) mmol/L Chloride 97 L (98-107) mmol/L BUN 31 H (9-20) mg/dL Creatinine 1.40 H (0.66-1.25) mg/dL Glucose 151 H (74-99) mg/dL POC Glucose (mg/dL) 183 H (75-99) mg/dL Phosphorus 5.4 H (2.5-4.5) mg/dL AST 12 L (17-59) U/L Albumin 2.7 L (3.5-5.0) g/dL 08/31/17 08/31/17 08/31/17 Range/Units 07:38 12:36 16:44 WBC (3.8-10.6) k/uL RBC (4.30-5.90) m/uL Hgb (13.0-17.5) gm/dL Hct (39.0-53.0) % MCHC (31.0-37.0) g/dL RDW (11.5-15.5) % Plt Count (150-450) k/uL Neutrophils # (1.3-7.7) k/uL Sodium (137-145) mmol/L Chloride (98-107) mmol/L BUN (9-20) mg/dL Creatinine (0.66-1.25) mg/dL Glucose (74-99) mg/dL POC Glucose (mg/dL) 141 H 218 H 201 H (75-99) mg/dL Phosphorus (2.5-4.5) mg/dL AST (17-59) U/L Albumin (3.5-5.0) g/dL Laboratory Results WBC 17.7 k/uL (3.8-10.6) H 08/31/17 04:20 RBC 3.74 m/uL (4.30-5.90) L 08/31/17 04:20 Hgb 9.9 gm/dL (13.0-17.5) L 08/31/17 04:20 Hct 33.5 % (39.0-53.0) L 08/31/17 04:20 MCV 89.7 fL (80.0-100.0) 08/31/17 04:20 MCH 26.5 pg (25.0-35.0) 08/31/17 04:20 MCHC 29.6 g/dL (31.0-37.0) L 08/31/17 04:20 RDW 17.3 % (11.5-15.5) H 08/31/17 04:20 Plt Count 479 k/uL (150-450) H 08/31/17 04:20 Neutrophils % 80 % 08/31/17 04:20 Lymphocytes % 10 % 08/31/17 04:20 Monocytes % 5 % 08/31/17 04:20 Eosinophils % 2 % 08/31/17 04:20 Basophils % 1 % 08/31/17 04:20 Neutrophils # 14.2 k/uL (1.3-7.7) H 08/31/17 04:20 Lymphocytes # 1.7 k/uL (1.0-4.8) 08/31/17 04:20 Monocytes # 1.0 k/uL (0-1.0) 08/31/17 04:20 Eosinophils # 0.4 k/uL (0-0.7) 08/31/17 04:20 Basophils # 0.1 k/uL (0-0.2) 08/31/17 04:20 Hypochromasia Marked 08/31/17 04:20 Anisocytosis Slight 08/31/17 04:20 Sample Site lbrac 08/16/17 08:01 ABG pH 7.46 (7.35-7.45) H 08/16/17 08:01 ABG pCO2 46 mmHg (35-45) H 08/16/17 08:01 ABG pO2 47 mmHg (83-108) L 08/16/17 08:01 ABG HCO3 32 mmol/L (21-25) H 08/16/17 08:01 ABG Total CO2 34 mmol/L (19-24) H 08/16/17 08:01 ABG O2 Saturation 85.0 % (94-97) L 08/16/17 08:01 ABG Base Excess 8.0 mmol/L 08/16/17 08:01 FiO2 60 % 08/16/17 08:01 Sodium 135 mmol/L (137-145) L 08/31/17 04:23 Potassium 4.5 mmol/L (3.5-5.1) 08/31/17 04:23 Chloride 97 mmol/L (98-107) L 08/31/17 04:23 Carbon Dioxide 30 mmol/L (22-30) 08/31/17 04:23 Anion Gap 8 mmol/L 08/31/17 04:23 BUN 31 mg/dL (9-20) H 08/31/17 04:23 Creatinine 1.40 mg/dL (0.66-1.25) H 08/31/17 04:23 Est GFR (MDRD) Af Amer >60 (>60 ml/min/1.73 sqM) 08/31/17 04:23 Est GFR (MDRD) Non-Af 50 (>60 ml/min/1.73 sqM) 08/31/17 04:23 Glucose 151 mg/dL (74-99) H 08/31/17 04:23 POC Glucose (mg/dL) 201 mg/dL (75-99) H 08/31/17 16:44 POC Glu Mental Health Worker ID Eden Laureano 08/31/17 16:[address] Glu mg/dL 143 mg/dL 08/16/17 07:03 Hemoglobin A1c 6.6 % (4.2-6.1) H 08/16/17 07:03 Calcium 9.0 mg/dL (8.4-10.2) 08/31/17 04:23 Phosphorus 5.4 mg/dL (2.5-4.5) H 08/31/17 04:23 Magnesium 2.0 mg/dL (1.6-2.3) 08/31/17 04:23 Iron 29 ug/dL (65-175) L 08/18/17 04:20 TIBC 171 ug/dL (228-460) L 08/18/17 04:20 Iron Saturation 16.96 (15.00-50.00) 08/18/17 04:20 Ferritin 533.4 ng/mL (22.0-322.0) H 08/18/17 04:20 Total Bilirubin 0.2 mg/dL (0.2-1.3) 08/31/17 04:23 AST 12 U/L (17-59) L 08/31/17 04:23 ALT 30 U/L (21-72) 08/31/17 04:23 Alkaline Phosphatase 104 U/L (38-126) 08/31/17 04:23 Total Protein 7.0 g/dL (6.3-8.2) 08/31/17 04:23 Albumin 2.7 g/dL (3.5-5.0) L 08/31/17 04:23 Cortisol 9 ug/dL 08/17/17 04:38 Urine Color Yellow 08/14/17 23:45 Urine Appearance Clear (Clear) 08/14/17 23:45 Urine pH 5.5 (5.0-8.0) 08/14/17 23:45 Ur Specific [place] 1.011 (1.001-1.035) 08/14/17 23:45 Urine Protein Negative (Negative) 08/14/17 23:45 Urine Glucose (UA) Negative (Negative) 08/14/17 23:45 Urine Ketones Negative (Negative) 08/14/17 23:45 Urine Blood Trace (Negative) H 08/14/17 23:45 Urine Nitrite Negative (Negative) 08/14/17 23:45 Urine Bilirubin Negative (Negative) 08/14/17 23:45 Urine Urobilinogen <2.0 mg/dL (<2.0) 08/14/17 23:45 Ur Leukocyte Esterase Negative (Negative) 08/14/17 23:45 Urine RBC 9 /hpf (0-5) H 08/14/17 23:45 Urine WBC 1 /hpf (0-5) 08/14/17 23:45 Hyaline Casts 3 /lpf (0-2) H 08/14/17 23:45 Urine Mucus Rare /hpf (None) H 08/14/17 23:45 Fluid Source Bronchial Wash 08/25/17 11:00 Fluid Color Red 08/25/17 11:00 Fluid Appearance Bloody 08/25/17 11:00 Fluid RBC 32301 /uL 08/25/17 11:00 Fluid Nucleated Cells 6000 /uL 08/25/17 11:00 Fluid Polynuclear WBCs 99 % 08/25/17 11:00 Fluid Mononuclear WBCs 1 % 08/25/17 11:00 Virus Source See Below 08/25/17 11:00 Viral Test See Below 08/25/17 11:00 Virus Analysis Interp See Below 08/25/17 11:00 Microbiology 08/25/17 11:00 Bronchial Washings - Right Gram Stain - Final 08/25/17 11:00 Bronchial Washings - Right Bronchial Washings Culture - Final Corynebacterium striatum 08/23/17 18:27 Stool Stool Culture - Final 08/25/17 11:00 Bronchial Washings - Right Acid Fast Bacilli Smear - Final 08/25/17 11:00 Bronchial Washings - Right Acid Fast Bacilli Culture - Preliminary 08/25/17 11:00 Bronchial Washings - Right Fungal Culture - Preliminary - Imaging and Cardiology Chest x-ray: report reviewed (Appears improved) Assessment and Plan (1) Fall Status: Acute (2) Acute right hip pain Status: Acute (3) Rib pain on left side Status: Acute (4) Hidradenitis suppurativa Narrative/Plan: 67-year-old male has multiple medical troubles including his history of squamous cell lung cancer fifth being monitored by oncology. He is followed in the infectious disease office for the treatment of his hidradenitis which is being treated currently with Humira. There has been some improvement of his significant disease state but not resolution. The last office visit the and I agreed that we would continue treatment at least until the next quarter. He tolerated this very well. He has had no worsening of his anemia or renal failure . While in hospital his Humira is on hold. Continues to have significant pain to the right hip because of the fall. Orthopedics is following. Orthopedics apparently does not believe that there is a fracture and just has a hyperextension injury. And they will follow as needed. Underwent another bronchoscopy today for his recurrent mucus plugging For antimicrobial therapy with the isolation of the Moraxella and Pseudomonas, ceftazidime was initiated at 2 g IV piggyback every 8 hours He is much more comfortable today from the right hip pain. As has noted dressings are not needed just have him on a drainage had and allow the drainage from his large draining sinus tracts to be absorbed into the pads. The pulmonary status has now stabilized. He's had his fifth bronchoscopy and is doing well since then. He is doing well with current antimicrobial therapy, pulmonary toileting and positioning. We'll plan at least 10-14 days of ceftaz and after his last bronch and the PICC line has been placed Patient's Humira is on hold and this will be discussed and outpatient visits if this is be prudent for further use Status: Acute
[2017-08-31 20:35] LABS: Glucose,Whole Blood 155 mg/dL (75-99)
[2017-08-31] MEDS: MULTIVITAMINS, THERA 1 EACH TAB PO SCH (20:48)
[2017-08-31] MEDS: SODIUM CHLORIDE 0.9% 1,000 ML IV SCH (20:55)
[2017-09-01] MEDS: oxyCODONE-APAP 10-325MG 1 EACH TAB PO PRN ×4 (00:10→23:09)
[2017-09-01 05:17] LABS: Glucose,Whole Blood 127 mg/dL (75-99)
[2017-09-01] MEDS: INSULIN LISPRO (humaLOG) 300 UNIT/3 ML VIAL SQ SCH ×4 (06:13→20:50)
[2017-09-01] MEDS: PANTOPRAZOLE 40 MG TABLET PO SCH (06:16)
[2017-09-01] MEDS: CALCIUM CARB-VIT D 500MG-200UN 1 EACH TAB PO SCH ×2 (06:17→16:57)
[2017-09-01] MEDS: FUROSEMIDE 40 MG TAB PO SCH (07:38)
[2017-09-01] MEDS: guaiFENesin 600 MG TABLET.ER PO SCH ×3 (07:38→20:19)
[2017-09-01] MEDS: LINAGLIPTIN 5 MG TABLET PO SCH (07:39)
[2017-09-01] MEDS: ALLOPURINOL 100 MG TAB PO SCH (07:39)
[2017-09-01] MEDS: CITALOPRAM HYDROBROMIDE 20 MG TAB PO SCH (07:39)
[2017-09-01] MEDS: METOPROLOL SUCCINATE (ER) 25 MG TAB.ER.24H PO SCH ×2 (07:39→20:20)
[2017-09-01] MEDS: DILTIAZEM CD 180 MG CAP.ER.24H PO SCH (07:39)
[2017-09-01] MEDS: predniSONE 10 MG TAB PO SCH (07:39)
[2017-09-01] MEDS: BACITRACIN 500 UNIT/GM OINT 28.4 GM TUBE TOPICAL SCH (07:40)
[2017-09-01] MEDS: MEGESTROL 400 MG/10 ML CUP PO SCH (07:40)
[2017-09-01] MEDS: LIDOCAINE 5% PATCH TOPICAL SCH (07:40)
[2017-09-01] MEDS: BISMUTH SUBSALICYLATE 4,192 MG/240 ML BOTTLE PO PRN (07:45)
--- NOTE | 2017-09-01 07:50 | XR ---
EXAMINATION TYPE: XR chest 1V portable DATE OF EXAM: 09/01/2017 COMPARISON: Prior chest x-ray 08/31/2017 HISTORY: Abnormal chest x-ray, difficulty breathing TECHNIQUE: Single frontal view of the chest is obtained. FINDINGS: There is an interval increase in density within the right hemithorax. No other significant interval change. IMPRESSION: Correlate for atelectasis, pneumonia, pleural effusion.
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
[2017-09-01] MEDS: IPRATROPIUM-ALBUTEROL 3 ML NEB INHALATION SCH ×4 (09:07→20:38)
[2017-09-01] MEDS: SYMBICORT 160-4.5 MCG INHALER INHALATION SCH ×2 (09:07→20:38)
--- NOTE | 2017-09-01 11:44 | P.PN ---
<Mckenzie Walton M - Last Filed: 09/01/17 11:30> Subjective Progress Note Date: 09/01/17 Principal diagnosis: Right-sided consolidation with pleural base thickening 67-year-old male patient who came into the intensive care yesterday with a complete right lung collapse. I performed a bronchoscopy and therapeutic airway suctioning and copious amounts of mucous plug was aspirated from the right lung. Postop, the patient a chest x-ray today and the right lung is adequately expanded and the patient has adequate rotation of the right upper lobe. Note that he has a right middle lobe/right lower lobe resection and the stump looked quite healthy during the bronchoscope. Is currently on fleets of oxygen nasal cannula. Previous cultures have showed pseudomonas and Moraxella and the patient is currently on IV Fortaz. No fever. No chills. No night sweats. He is tolerating his breathing treatments. He is tolerating his antibiotics. No signs of septicemia. No aspiration. No other complaints otherwise. He was on BiPAP on and off throughout the night. Aggressive chest PT is being performed. No other significant events over the past 24 hours. On 08/30/2017 the patient is being seen in follow-up. Is doing extremely well. No respiratory difficulties. Chest x-ray shows expansion of the right upper lobe with adequate aeration. Limited cough without any significant hemoptysis. He is able to bring up some sputum. He is using incentive spirometer. Afebrile. Hemodynamically stable. No nausea. No vomiting. Tolerating diet. No other significant events over the past 24 hours. The patient remains on IV Fortaz for now. He is having aggressive chest PT and pulmonary toileting for now. The patient was seen again today 08/31/2017 in follow-up in the intensive care unit. He is currently resting quite comfortably in bed. He is awake and alert in no acute distress. He did utilize BiPAP 10/25 at 40% FiO2 throughout the evening. He is currently on 6 L high flow nasal cannula to maintain O2 saturations in the 90s. He's been hemodynamically stable. Afebrile. Bronchial findings from 08/25/2017 revealed no significant findings. Previously he had pseudomonas aeruginosa from 08/16/2017. He remains on ceftazidime. His chest x-ray continues to show improvement in his right lobe aeration. He continues to receive aggressive chest physiotherapy and pulmonary toileting. He continues to work well of the incentive spirometer and cough and deep breathing exercises. On 09/01/2017 patient's repeat chest x-ray and straight increased density within the right hemothorax and complete opacification with volume loss of the right lung. On evaluation patient is resting in bed, he did wear his BiPAP last night, he states he is slightly more short of breath but denies respiratory distress. He appears quite comfortable estimating in bed, on 6 L per high flow nasal cannula with O2 saturations around 93%. His lung sounds reveal no air entry on the right, clear with a few scattered rales on the left. He has been afebrile, his I-S effort remains poor, is only able to achieve 500 on it today. He has been sitting up in the chair on the daily basis, his bronchial washings from 08/25/2017 were positive for Corynebacterium striatum. Continues on IV ceftazidime, oral steroids and nebulizer treatments around-the- clock. He already ate breakfast today. Will be made nothing by mouth now, and she will be scheduled for repeat bronchoscopy with bronchial alveolar lavage with Dr. Mckeon at 1400 today and the endoscopic suite. Patient is in agreement with the plan. h Objective - Vital Signs Vital signs: Vital Signs Temp 98.4 F 09/01/17 08:00 Pulse 92 09/01/17 09:26 Resp 20 09/01/17 08:00 BP 115/67 09/01/17 08:00 Pulse Ox 93 L 09/01/17 08:00 Intake & Output 08/31/17 09/01/17 09/01/17 18:59 06:59 18:59 Intake Total 140 500 500 Output Total 280 475 Balance -140 25 500 Weight 131 kg Intake: IV 140 Sodium Chloride 0.9% 1, 40 000 ml @ 20 mls/hr IV . Q24H [facility] Rx#:[id number] cefTAZidime 2 gm In 100 Sodium Chloride 0.9% 100 ml @ 100 mls/hr IVPB Q8HR [facility] Rx#:[id number] Oral 500 500 Output: Urine 280 475 Other: Voiding Method Urinal Urinal Urinal # Voids 0 1 - Exam GENERAL EXAM: Alert, comfortable in no apparent distress. HEAD: Normocephalic. EYES: Normal reaction of pupils, equal size. NOSE: Clear with pink turbinates. THROAT: No erythema or exudates. NECK: No masses, no JVD. CHEST: No chest wall deformity. LUNGS: Absent air entry on the right. Few scattered rales on the left. CVS: S1 and S2 normal with no audible mumurs, regular rhythm. ABDOMEN: No hepatosplenomegaly, normal bowel sounds, no guarding or rigidity. SPINE: No scoliosis or deformity SKIN: No rashes CENTRAL NERVOUS SYSTEM: No focal deficits, tone is normal in all 4 extremities. Extremities: There is trace peripheral edema. No clubbing, no cyanosis. Peripheral pulses are intact - Labs CBC & Chem 7: 08/31/17 04:20 08/31/17 04:23 Labs: Abnormal Lab Results - Last 24 Hours (Table) 08/31/17 08/31/17 08/31/17 Range/Units 12:36 16:44 20:32 POC Glucose (mg/dL) 218 H 201 H 155 H (75-99) mg/dL 09/01/17 Range/Units 05:15 POC Glucose (mg/dL) 127 H (75-99) mg/dL Assessment and Plan Plan: Assessment and Plan Plan: Impression: #1 Acute on chronic systolic congestive heart failure. #2 Atrial fibrillation with varying ventricular response. #3 Acute right lung pneumonia, secondary to Moraxella and pseudomonas aeruginosa. Bronchial washings from 08/25/2017 are positive for Corynebacterium stratum.The plan is for 10-14 days of IV ceftaz. PICC line inserted. Status post bronchoscopy 5. 09/01/2017 x-ray shows increased density within the right hemothorax. Patient is scheduled for a repeat bronchoscopy with BAL today with Dr. Mckeon at 1400. #4 Acute hypoxic respiratory failure secondary to above. #5 Diabetes mellitus, type II. #6 History of CVA. #7 Hypertension. #8 History of lung, non-small cell carcinoma. History of right lower lobectomy #9 Hyperlipidemia. #10 Renal insufficiency. #11 Ventricular tachycardia. #12 Acute fall status post with right hip pain, negative for fracture. Plan: The patient was seen and evaluated by Dr. Mckeon. His chest x-ray and labs was reviewed. It is worsening in density within the right hemothorax, patient will undergo repeat bronchoscopy with bronchial alveolar lavage today 1400 in the endoscopy suite. He can remain in the selective care unit, in no acute respiratory distress, oxygenating well on 6 L per nasal cannula. Nothing by mouth after breakfast. Monitor for signs of medical deterioration. Continue with BiPAP as needed and at bedtime. Continue aggressive pulmonary toileting. We'll continue with his current medications. ID has requested 10-14 days of ceftaz. PICC line was inserted. We'll increase his activity as tolerated. We' ll continue to follow. I performed a history & physical examination of the patient and discussed their management with my nurse practitioner, Mckenzie Walton. I reviewed the nurse practitioner's note and agree with the documented findings and plan of care. <Anupam Mckeon - Last Filed: 09/01/17 12:56> Objective - Vital Signs Vital signs: Vital Signs Temp 98.8 F 09/01/17 08:16 Pulse 92 09/01/17 09:26 Resp 20 09/01/17 08:16 BP 124/65 09/01/17 08:16 Pulse Ox 93 L 09/01/17 08:16 Intake & Output 08/31/17 09/01/17 09/01/17 18:59 06:59 18:59 Intake Total 140 500 500 Output Total 280 475 Balance -140 25 500 Weight 131 kg Intake: IV 140 Sodium Chloride 0.9% 1, 40 000 ml @ 20 mls/hr IV . Q24H [facility] Rx#:[id number] cefTAZidime 2 gm In 100 Sodium Chloride 0.9% 100 ml @ 100 mls/hr IVPB Q8HR [facility] Rx#:[id number] Oral 500 500 Output: Urine 280 475 Other: Voiding Method Urinal Urinal Urinal # Voids 0 1 - Labs CBC & Chem 7: 08/31/17 04:20 08/31/17 04:23 Labs: Abnormal Lab Results - Last 24 Hours (Table) 08/31/17 08/31/17 09/01/17 Range/Units 16:44 20:32 05:15 POC Glucose (mg/dL) 201 H 155 H 127 H (75-99) mg/dL 09/01/17 Range/Units 11:53 POC Glucose (mg/dL) 135 H (75-99) mg/dL Assessment and Plan Plan: I do a test and information mentioned above. This is a joint evaluation that was done along with a nurse practitioner. My plan is to do another bronchoscopy on this patient knowing that there has been recurrent atelectasis of the right upper lobe. We will readdress the situation. We'll do therapeutic airway suctioning and remove any mucous plugs that are available within the airway. We'll continue to follow. His pulmonary status is stable for now. He is nothing by mouth after breakfast.
[2017-09-01 12:11] LABS: Glucose,Whole Blood 135 mg/dL (75-99)
[2017-09-01] MEDS: METOLAZONE 2.5 MG TAB PO SCH (12:19)
[2017-09-01] MEDS ORDERED: IV FLUID CONTINUATION 1,000 ML IV ONE (14:19)
[2017-09-01] MEDS ORDERED: PROPOFOL 10 MG/ML 20 ML VIAL IV ONE (14:28)
--- NOTE | 2017-09-01 15:32 | PCN ---
PROCEDURE NOTE BRONCHOSCOPY: PREOPERATIVE DIAGNOSIS: Right upper lobe collapse, recurrent. POSTOPERATIVE DIAGNOSIS: Right upper lobe collapse, recurrent. This procedure was done under conscious sedation with anesthetic agents being administered by Anesthesia at the bedside. After achieving adequate sedation, I inserted the flexible bronchoscope through the right nostril and advanced to the upper airway. Examination of posterior pharynx, larynx, epiglottis and vocal cords was done and all of his upper airway structures were within normal limits. Following that, lidocaine was applied to the vocal cord and a total of 2 mL of 1% lidocaine was applied and bronchoscope was advanced past the vocal cords into the upper trachea. Examination of the tracheobronchial tree was done. There was loose purulent respiratory secretions throughout the trachea that were suctioned out. There was again mucous plugging obstructing the right mainstem bronchus. Therapeutic airway suctioning was done and secretions were emptied without any complications. Note that the secretions were purulent; however, they were loose and they were easily suctioned out. The right upper lobe was trifurcated and different segments were inspected. There was some purulent material within the upper lobe that was suctioned out. The stump in the bronchus intermedius was inspected. It was healthy, viable and intact. No evidence of any leak. No evidence of any fistulas noted. Examination of the left side was within normal including the left mainstem bronchus, left upper and left lower lobe bronchus. At the end of the procedure, I performed a bronchoalveolar lavage in the right lung. I infused some liquid into the bronchus intermedius and washed the stump and total amount of fluid was infused was 40 mL and 10 mL was suctioned back. Total amount of purulent material suctioned from the right lung was 20 mL. Bronchoscope was removed and the patient was transferred to recovery in stable condition. Will follow. MMODL / IJN: [id number] /
[2017-09-01 16:41] LABS: Glucose,Whole Blood 175 mg/dL (75-99)
--- NOTE | 2017-09-01 17:35 | P.PN ---
Subjective Progress Note Date: 09/01/17 Principal diagnosis: Fall with left hip pain 67-year-old male who is well-known to the infectious disease service with as many hospitalizations as well as his hidradenitis. He's had a couple hospitalizations in the last several months that included atrial fibrillation with nonsustained V. tach. He has underlying cardiac murmur. He's had vertigo and acute renal failure. He's had some time at the extended care facility in the past year but is now home Doing relatively well under the care of his . He was hospitalized earlier this year with a bout of congestive heart failure and is in relatively well since that time. The. The patient was bathing and suffered a fall and now presents with severe right sided hip pain. He's been evaluated by orthopedics. The hidradenitis is now being treated with Humira injections at home. This is on Fridays. This has been occurring for the last couple of months now. There is been decreasing amount of drainage. His skin is becoming less erythematous and inflamed. The amount of drainage is improving The family is pleased that there is showing some improvement given the many year history of lack of improvement. However was still must apply large amounts of dressings on a daily basis to contain his drainage. The patient never became progressively more short of breath. Was transferred to intensive care unit. He's been seen by pulmonary and underwent bronchoscopy for removal of large mucous plugging to the right lung. Patient remains on BiPAP but is more stable at this time. Antimicrobial therapy was initiated with concerns to pneumonia with this pulmonary process. Cultures have revealed Moraxella and pseudomonas aeruginosa He has minimal improved pain today. Pulmonary status again was giving him difficulties, and again had bronchoscopy today for the sixth time to remove more mucous plugs. Doing well after the bronchoscopy. However is certainly with weakness overall. Complains that he's been tired. He has no acute changes except he is still quite fatigued Objective - Vital Signs Vital signs: Vital Signs Temp 98.5 F 09/01/17 15:39 Pulse 110 H 09/01/17 16:26 Resp 20 09/01/17 15:39 BP 126/61 09/01/17 15:39 Pulse Ox 93 L 09/01/17 12:00 Intake & Output 08/31/17 09/01/17 09/01/17 18:59 06:59 18:59 Intake Total 140 500 700 Output Total 280 475 150 Balance -140 25 550 Weight 131 kg Intake: IV 140 200 Sodium Chloride 0.9% 1, 40 000 ml @ 20 mls/hr IV . Q24H [facility] Rx#:[id number] cefTAZidime 2 gm In 100 100 Sodium Chloride 0.9% 100 ml @ 100 mls/hr IVPB Q8HR [facility] Rx#:[id number] Oral 500 500 Output: Urine 280 475 150 Other: Voiding Method Urinal Urinal Urinal # Voids 0 1 - Exam Pleasant 67-year-old gentleman who suffers from obesity who was miserable at this time. BiPAP though is being tolerated. Hip pain is better treated. HEENT: Anicteric conjunctiva are pink and moist nasal mucosa grossly intact without significant lesions, there is no thrush. Neck: The neck is supple without significant lymphadenopathy or thyromegaly. Lungs: There is symmetrical air entry with evidence of crackles at the the right base Some expiratory wheezes are heard. Voice is weak Heart: Irregular with an audible S1 and S2 no S3 soft S4 There is no significant murmur click or rub, PMI was nondisplaced. Abdomen: Obese, Positive bowel sounds soft and nontender without palpable masses or organomegaly. There was no guarding or rebound. Extremities: The upper extremities have excellent pulses they are symmetric, no significant petechiae or telangiectasia. No splinter hemorrhages were noted. The left lower extremity is without significant tenderness at this time. Right lower extremity has severe pain upon manipulation. Any attempt to internally or externally rotate the limb causes him to have some pain. Of note he is able to move it himself with only minimal discomfort. There is at the chronic drainage without change from last evaluation. He has extensive areas of drainage on the buttocks bilaterally and inner thighs. Neuro: Very sleepy after his procedure There are no acute new gross focal sensory motor deficits. - Labs CBC & Chem 7: 08/31/17 04:20 08/31/17 04:23 Labs: Abnormal Lab Results - Last 24 Hours (Table) 08/31/17 09/01/17 09/01/17 Range/Units 20:32 05:15 11:53 POC Glucose (mg/dL) 155 H 127 H 135 H (75-99) mg/dL 09/01/17 Range/Units 16:40 POC Glucose (mg/dL) 175 H (75-99) mg/dL Laboratory Results WBC 17.7 k/uL (3.8-10.6) H 08/31/17 04:20 RBC 3.74 m/uL (4.30-5.90) L 08/31/17 04:20 Hgb 9.9 gm/dL (13.0-17.5) L 08/31/17 04:20 Hct 33.5 % (39.0-53.0) L 08/31/17 04:20 MCV 89.7 fL (80.0-100.0) 08/31/17 04:20 MCH 26.5 pg (25.0-35.0) 08/31/17 04:20 MCHC 29.6 g/dL (31.0-37.0) L 08/31/17 04:20 RDW 17.3 % (11.5-15.5) H 08/31/17 04:20 Plt Count 479 k/uL (150-450) H 08/31/17 04:20 Neutrophils % 80 % 08/31/17 04:20 Lymphocytes % 10 % 08/31/17 04:20 Monocytes % 5 % 08/31/17 04:20 Eosinophils % 2 % 08/31/17 04:20 Basophils % 1 % 08/31/17 04:20 Neutrophils # 14.2 k/uL (1.3-7.7) H 08/31/17 04:20 Lymphocytes # 1.7 k/uL (1.0-4.8) 08/31/17 04:20 Monocytes # 1.0 k/uL (0-1.0) 08/31/17 04:20 Eosinophils # 0.4 k/uL (0-0.7) 08/31/17 04:20 Basophils # 0.1 k/uL (0-0.2) 08/31/17 04:20 Hypochromasia Marked 08/31/17 04:20 Anisocytosis Slight 08/31/17 04:20 Sample Site lbra 08/16/17 08:01 ABG pH 7.46 (7.35-7.45) H 08/16/17 08:01 ABG pCO2 46 mmHg (35-45) H 08/16/17 08:01 ABG pO2 47 mmHg (83-108) L 08/16/17 08:01 ABG HCO3 32 mmol/L (21-25) H 08/16/17 08:01 ABG Total CO2 34 mmol/L (19-24) H 08/16/17 08:01 ABG O2 Saturation 85.0 % (94-97) L 08/16/17 08:01 ABG Base Excess 8.0 mmol/L 08/16/17 08:01 FiO2 60 % 08/16/17 08:01 Sodium 135 mmol/L (137-145) L 08/31/17 04:23 Potassium 4.5 mmol/L (3.5-5.1) 08/31/17 04:23 Chloride 97 mmol/L (98-107) L 08/31/17 04:23 Carbon Dioxide 30 mmol/L (22-30) 08/31/17 04:23 Anion Gap 8 mmol/L 08/31/17 04:23 BUN 31 mg/dL (9-20) H 08/31/17 04:23 Creatinine 1.40 mg/dL (0.66-1.25) H 08/31/17 04:23 Est GFR (MDRD) Af Amer >60 (>60 ml/min/1.73 sqM) 08/31/17 04:23 Est GFR (MDRD) Non-Af 50 (>60 ml/min/1.73 sqM) 08/31/17 04:23 Glucose 151 mg/dL (74-99) H 08/31/17 04:23 POC Glucose (mg/dL) 175 mg/dL (75-99) H 09/01/17 16:40 POC Glu Keno Writer/Runner ID Devika Lauren 09/01/17 16:[address] Glu mg/dL 143 mg/dL 08/16/17 07:03 Hemoglobin A1c 6.6 % (4.2-6.1) H 08/16/17 07:03 Calcium 9.0 mg/dL (8.4-10.2) 08/31/17 04:23 Phosphorus 5.4 mg/dL (2.5-4.5) H 08/31/17 04:23 Magnesium 2.0 mg/dL (1.6-2.3) 08/31/17 04:23 Iron 29 ug/dL (65-175) L 08/18/17 04:20 TIBC 171 ug/dL (228-460) L 08/18/17 04:20 Iron Saturation 16.96 (15.00-50.00) 08/18/17 04:20 Ferritin 533.4 ng/mL (22.0-322.0) H 08/18/17 04:20 Total Bilirubin 0.2 mg/dL (0.2-1.3) 08/31/17 04:23 AST 12 U/L (17-59) L 08/31/17 04:23 ALT 30 U/L (21-72) 08/31/17 04:23 Alkaline Phosphatase 104 U/L (38-126) 08/31/17 04:23 Total Protein 7.0 g/dL (6.3-8.2) 08/31/17 04:23 Albumin 2.7 g/dL (3.5-5.0) L 08/31/17 04:23 Cortisol 9 ug/dL 08/17/17 04:38 Urine Color Yellow 08/14/17 23:45 Urine Appearance Clear (Clear) 08/14/17 23:45 Urine pH 5.5 (5.0-8.0) 08/14/17 23:45 Ur Specific [place] 1.011 (1.001-1.035) 08/14/17 23:45 Urine Protein Negative (Negative) 08/14/17 23:45 Urine Glucose (UA) Negative (Negative) 08/14/17 23:45 Urine Ketones Negative (Negative) 08/14/17 23:45 Urine Blood Trace (Negative) H 08/14/17 23:45 Urine Nitrite Negative (Negative) 08/14/17 23:45 Urine Bilirubin Negative (Negative) 08/14/17 23:45 Urine Urobilinogen <2.0 mg/dL (<2.0) 08/14/17 23:45 Ur Leukocyte Esterase Negative (Negative) 08/14/17 23:45 Urine RBC 9 /hpf (0-5) H 08/14/17 23:45 Urine WBC 1 /hpf (0-5) 08/14/17 23:45 Hyaline Casts 3 /lpf (0-2) H 08/14/17 23:45 Urine Mucus Rare /hpf (None) H 08/14/17 23:45 Fluid Source Bronchial Wash 08/25/17 11:00 Fluid Color Red 08/25/17 11:00 Fluid Appearance Bloody 08/25/17 11:00 Fluid RBC 30503 /uL 08/25/17 11:00 Fluid Nucleated Cells 6000 /uL 08/25/17 11:00 Fluid Polynuclear WBCs 99 % 08/25/17 11:00 Fluid Mononuclear WBCs 1 % 08/25/17 11:00 Virus Source See Below 08/25/17 11:00 Viral Test See Below 08/25/17 11:00 Virus Analysis Interp See Below 08/25/17 11:00 Microbiology 08/25/17 11:00 Bronchial Washings - Right Gram Stain - Final 08/25/17 11:00 Bronchial Washings - Right Bronchial Washings Culture - Final Corynebacterium striatum 08/23/17 18:27 Stool Stool Culture - Final 08/25/17 11:00 Bronchial Washings - Right Acid Fast Bacilli Smear - Final 08/25/17 11:00 Bronchial Washings - Right Acid Fast Bacilli Culture - Preliminary 08/25/17 11:00 Bronchial Washings - Right Fungal Culture - Preliminary Assessment and Plan (1) Fall Status: Acute (2) Acute right hip pain Status: Acute (3) Rib pain on left side Status: Acute (4) Hidradenitis suppurativa Narrative/Plan: 67-year-old male has multiple medical troubles including his history of squamous cell lung cancer fifth being monitored by oncology. He is followed in the infectious disease office for the treatment of his hidradenitis which is being treated currently with Humira. There has been some improvement of his significant disease state but not resolution. The last office visit the and I agreed that we would continue treatment at least until the next quarter. He tolerated this very well. He has had no worsening of his anemia or renal failure . While in hospital his Humira is on hold. Continues to have significant pain to the right hip because of the fall. Orthopedics is following. Orthopedics apparently does not believe that there is a fracture and just has a hyperextension injury. And they will follow as needed. Underwent another bronchoscopy today for his recurrent mucus plugging For antimicrobial therapy with the isolation of the Moraxella and Pseudomonas, ceftazidime was initiated at 2 g IV piggyback every 8 hours He is much more comfortable today from the right hip pain. As has noted dressings are not needed just have him on a drainage had and allow the drainage from his large draining sinus tracts to be absorbed into the pads. He's had his sixth bronchoscopy and is doing well postop. He is doing well with current antimicrobial therapy, pulmonary toileting and positioning. We'll plan at least 10-14 days of ceftaz and after his last bronch and the PICC line has been placed Patient's Humira is on hold and this will be discussed and outpatient visits if this is be prudent for further use at this time with the biggest concerns will be his overall status. Requiring frequent bronchoscopies is problematic. Concern that it could possibly be a fistula. If he continues to have a great difficulties a cardiothoracic surgery consult and further evaluation may be indicated. Status: Acute
[2017-09-01] MEDS: MULTIVITAMINS, THERA 1 EACH TAB PO SCH (20:19)
[2017-09-01 20:31] LABS: Glucose,Whole Blood 145 mg/dL (75-99)
[2017-09-01] MEDS: SODIUM CHLORIDE 0.9% 1,000 ML IV SCH (20:51)
[2017-09-02] MEDS: oxyCODONE-APAP 10-325MG 1 EACH TAB PO PRN ×3 (05:33→23:24)
[2017-09-02 06:00] LABS: Glucose,Whole Blood 181 mg/dL (75-99)
[2017-09-02 06:35] LABS: Calcium 8.4 mg/dL (8.4-10.2); Potassium 4.4 mmol/L (3.5-5.1)
[2017-09-02] MEDS: CALCIUM CARB-VIT D 500MG-200UN 1 EACH TAB PO SCH ×2 (06:35→15:03)
[2017-09-02] MEDS: PANTOPRAZOLE 40 MG TABLET PO SCH (06:36)
[2017-09-02] MEDS: INSULIN LISPRO (humaLOG) 300 UNIT/3 ML VIAL SQ SCH ×4 (06:36→21:06)
--- NOTE | 2017-09-02 07:20 | XR ---
EXAMINATION TYPE: XR chest 1V portable DATE OF EXAM: 09/02/2017 HISTORY: recurrent mucous plug. REFERENCE: Previous study dated 09/01/2017. FINDINGS: There is worsening opacity of the right lung. There is vascular congestion. Heart size is o bscured. IMPRESSION: WORSENING OPACITY OF THE RIGHT HEMITHORAX, LIKELY A COMBINATION OF PLEURAL FLUID AND AIRSPACE DISEASE .
[2017-09-02] MEDS: LINAGLIPTIN 5 MG TABLET PO SCH (07:34)
[2017-09-02] MEDS: MEGESTROL 400 MG/10 ML CUP PO SCH (07:34)
[2017-09-02] MEDS: METOPROLOL SUCCINATE (ER) 25 MG TAB.ER.24H PO SCH ×2 (07:35→21:06)
[2017-09-02] MEDS: predniSONE 10 MG TAB PO SCH (07:37)
[2017-09-02] MEDS: DILTIAZEM CD 180 MG CAP.ER.24H PO SCH (07:40)
[2017-09-02] MEDS: guaiFENesin 600 MG TABLET.ER PO SCH ×2 (07:40→21:06)
[2017-09-02] MEDS: CITALOPRAM HYDROBROMIDE 20 MG TAB PO SCH (07:40)
[2017-09-02] MEDS: ALLOPURINOL 100 MG TAB PO SCH (07:40)
[2017-09-02] MEDS: LIDOCAINE 5% PATCH TOPICAL SCH (07:41)
[2017-09-02] MEDS: BACITRACIN 500 UNIT/GM OINT 28.4 GM TUBE TOPICAL SCH (07:41)
[2017-09-02] MEDS: FUROSEMIDE 40 MG TAB PO SCH (07:41)
[2017-09-02] MEDS: IPRATROPIUM-ALBUTEROL 3 ML NEB INHALATION SCH ×4 (08:07→19:23)
[2017-09-02] MEDS: SYMBICORT 160-4.5 MCG INHALER INHALATION SCH ×2 (08:07→19:23)
--- NOTE | 2017-09-02 08:58 | P.PN ---
Subjective Patient is seen in follow-up for acute kidney injury on chronic kidney disease. Patient has chronic kidney disease stage III secondary to chronic NSAID use and cisplatin toxicity with baseline creatinine near 1.6-1.8 recently. Renal function is a little worse today with creatinine at 1.6. peaked at 2.44 this admission. He is currently being treated for pneumonia with IV antibiotics. he' s also had mucous plugging and has undergone multiple bronchoscopies this admission. Most recent bronchoscopy was September 01. His dyspnea is improved. He has been waiting. Vital signs are stable. General: The patient appeared well nourished and normally developed. HEENT: Head exam is unremarkable. Neck is without jugular venous distension. LUNGS: Lungs are clear to auscultation and percussion. Breath sounds decreased. HEART: Rate and Rhythm are regular. First and second heart sounds normal. No murmurs, rubs or gallops. ABDOMEN: Abdominal exam reveals normal bowel sounds. Non-tender and non- distended. No evidence of peritonitis. EXTREMITITES: Trace edema. Objective - Vital Signs Vital signs: Vital Signs Temp 97.6 F 09/02/17 08:00 Pulse 94 09/02/17 08:17 Resp 18 09/02/17 08:00 BP 111/67 09/02/17 08:00 Pulse Ox 96 09/02/17 08:00 Intake & Output 09/01/17 09/02/17 09/02/17 18:59 06:59 18:59 Intake Total 700 160 180 Output Total 150 675 Balance 550 -515 180 Weight 132.1 kg Intake: IV 200 160 Sodium Chloride 0.9% 1, 160 000 ml @ 20 mls/hr IV . Q24H [facility] Rx#:[id number] cefTAZidime 2 gm In 100 Sodium Chloride 0.9% 100 ml @ 100 mls/hr IVPB Q8HR [facility] Rx#:[id number] Oral 500 180 Output: Urine 150 675 Other: Voiding Method Urinal Urinal # Bowel Movements 1 - Labs CBC & Chem 7: 08/31/17 04:20 09/02/17 05:19 Labs: Abnormal Lab Results - Last 24 Hours (Table) 09/01/17 09/01/17 09/01/17 Range/Units 11:53 16:40 20:29 Sodium (137-145) mmol/L Chloride (98-107) mmol/L BUN (9-20) mg/dL Creatinine (0.66-1.25) mg/dL Glucose (74-99) mg/dL POC Glucose (mg/dL) 135 H 175 H 145 H (75-99) mg/dL 09/02/17 09/02/17 Range/Units 05:19 05:52 Sodium 133 L (137-145) mmol/L Chloride 95 L (98-107) mmol/L BUN 40 H (9-20) mg/dL Creatinine 1.60 H (0.66-1.25) mg/dL Glucose 151 H (74-99) mg/dL POC Glucose (mg/dL) 181 H (75-99) mg/dL Microbiology - Last 24 Hours (Table) 09/01/17 14:46 Gram Stain - Preliminary Bronchoalviolar Lavage - Right Bronchial Washings Culture - Preliminary Assessment and Plan Plan: Assessment: #1. Nonoliguric acute kidney injury secondary to ischemic ATN secondary to hypotension and diuresis. Creatinine peaked at 2.4 for this admission. 1.6 today.No proteinuria on urinalysis. #2. Right-sided pneumonia. Maintained on antibiotics per infectious disease recommendations. #3. Recurrent mucus plugging status post 6 bronchoscopies this admission. #4. Chronic kidney disease stage III secondary to chronic NSAID use as well as cisplatin. Recently creatinine has been near 1.6-1.8. #5. Acute hypoxic respiratory failure status post bronchoscopy with clearing of mucous plugging. #6. Non-small cell lung cancer being followed by oncology. #7. Hypomagnesemia secondary to diuresis. Improved post replacement. #8. Hypocalcemia secondary to acute kidney injury. Improved. Maintained on Os -Clifton D as well as calcitriol. Plan: Encouraged oral intake. Continue Os-Clifton and Rocaltrol. Avoid nephrotoxic agents and hypotensive episodes. Continue to monitor renal function and urine output. Repeat electrolytes in the morning.
--- NOTE | 2017-09-02 10:17 | P.PN ---
Subjective Progress Note Date: 09/02/17 67-year-old male patient who came into the intensive care yesterday with a complete right lung collapse. I performed a bronchoscopy and therapeutic airway suctioning and copious amounts of mucous plug was aspirated from the right lung. Postop, the patient a chest x-ray today and the right lung is adequately expanded and the patient has adequate rotation of the right upper lobe. Note that he has a right middle lobe/right lower lobe resection and the stump looked quite healthy during the bronchoscope. Is currently on fleets of oxygen nasal cannula. Previous cultures have showed pseudomonas and Moraxella and the patient is currently on IV Fortaz. No fever. No chills. No night sweats. He is tolerating his breathing treatments. He is tolerating his antibiotics. No signs of septicemia. No aspiration. No other complaints otherwise. He was on BiPAP on and off throughout the night. Aggressive chest PT is being performed. No other significant events over the past 24 hours. On 08/30/2017 the patient is being seen in follow-up. Is doing extremely well. No respiratory difficulties. Chest x-ray shows expansion of the right upper lobe with adequate aeration. Limited cough without any significant hemoptysis. He is able to bring up some sputum. He is using incentive spirometer. Afebrile. Hemodynamically stable. No nausea. No vomiting. Tolerating diet. No other significant events over the past 24 hours. The patient remains on IV Fortaz for now. He is having aggressive chest PT and pulmonary toileting for now. The patient was seen again today 08/31/2017 in follow-up in the intensive care unit. He is currently resting quite comfortably in bed. He is awake and alert in no acute distress. He did utilize BiPAP / at 40% FiO2 throughout the evening. He is currently on 6 L high flow nasal cannula to maintain O2 saturations in the 90s. He's been hemodynamically stable. Afebrile. Bronchial findings from 08/25/2017 revealed no significant findings. Previously he had pseudomonas aeruginosa from 08/16/2017. He remains on ceftazidime. His chest x-ray continues to show improvement in his right lobe aeration. He continues to receive aggressive chest physiotherapy and pulmonary toileting. He continues to work well of the incentive spirometer and cough and deep breathing exercises. On 09/01/2017 patient's repeat chest x-ray and straight increased density within the right hemothorax and complete opacification with volume loss of the right lung. On evaluation patient is resting in bed, he did wear his BiPAP last night, he states he is slightly more short of breath but denies respiratory distress. He appears quite comfortable estimating in bed, on 6 L per high flow nasal cannula with O2 saturations around 93%. His lung sounds reveal no air entry on the right, clear with a few scattered rales on the left. He has been afebrile, his I-S effort remains poor, is only able to achieve 500 on it today. He has been sitting up in the chair on the daily basis, his bronchial washings from 08/25/2017 were positive for Corynebacterium striatum. Continues on IV ceftazidime, oral steroids and nebulizer treatments around-the- clock. He already ate breakfast today. Will be made nothing by mouth now, and she will be scheduled for repeat bronchoscopy with bronchial alveolar lavage with Dr. Mckeon at 1400 today and the endoscopic suite. Patient is in agreement with the plan. On 09/02/2017 the patient has no specific complaints. He is feeling well. After doing adequate therapeutic airway suctioning and removal of mucous plugs yesterday for a bronchoscopy, the patient's chest x-ray from today showing recurrent opacification of the right upper lobe. Despite that, the patient is not having any major stroke difficulties. No fever. No chills. No sweats. No fever. No chills. I'm still awaiting the repeat cultures that were collected from the right upper lobe to see if there is any antibiotic modifications that we can do to improve this patient's mucous production and recurrent atelectasis of the right upper lobe. He is hemodynamically stable. He is on 5-6 L of oxygen nasal cannula. He is being seen by infectious disease. He is still on IV Fortaz. No other significant events overnight. Objective - Vital Signs Vital signs: Vital Signs Temp 97.6 F 09/02/17 08:00 Pulse 94 09/02/17 08:17 Resp 18 09/02/17 08:00 BP 111/67 09/02/17 08:00 Pulse Ox 96 09/02/17 08:00 Intake & Output 09/01/17 09/02/17 09/02/17 18:59 06:59 18:59 Intake Total 700 160 180 Output Total 150 675 Balance 550 -515 180 Weight 132.1 kg Intake: IV 200 160 Sodium Chloride 0.9% 1, 160 000 ml @ 20 mls/hr IV . Q24H [facility] Rx#:[id number] cefTAZidime 2 gm In 100 Sodium Chloride 0.9% 100 ml @ 100 mls/hr IVPB Q8HR [facility] Rx#:[id number] Oral 500 180 Output: Urine 150 675 Other: Voiding Method Urinal Urinal # Bowel Movements 1 - Exam No acute distress, oriented 3 HEENT examination is unremarkable. Mucous membranes are moist. No oral lesions. Neck supple. Full range of motion. No adenopathy or thyromegaly. Neck veins are flat. Cardiovascular examination reveals regular rhythm rate. S1-S2 normal. No S3 or S4. No discernible murmur. Lungs reveal diminished breath sounds on the right compared to the left. The patient also has symptoms diffuse rhonchi. Some crackles are also noted on the right side. Left breath sounds are mostly clear.. Abdomen soft bowel sounds are heard. No masses or tenderness. Extremities are intact. No cyanosis clubbing but there is slight edema Skin is without rash or lesion. Neurologic examination is brief but nonfocal. - Labs CBC & Chem 7: 08/31/17 04:20 09/02/17 05:19 Labs: Abnormal Lab Results - Last 24 Hours (Table) 09/01/17 09/01/17 09/01/17 Range/Units 11:53 16:40 20:29 Sodium (137-145) mmol/L Chloride (98-107) mmol/L BUN (9-20) mg/dL Creatinine (0.66-1.25) mg/dL Glucose (74-99) mg/dL POC Glucose (mg/dL) 135 H 175 H 145 H (75-99) mg/dL 09/02/17 09/02/17 Range/Units 05:19 05:52 Sodium 133 L (137-145) mmol/L Chloride 95 L (98-107) mmol/L BUN 40 H (9-20) mg/dL Creatinine 1.60 H (0.66-1.25) mg/dL Glucose 151 H (74-99) mg/dL POC Glucose (mg/dL) 181 H (75-99) mg/dL Microbiology - Last 24 Hours (Table) 09/01/17 14:46 Gram Stain - Preliminary Bronchoalviolar Lavage - Right Bronchial Washings Culture - Preliminary Assessment and Plan Plan: Assessment 1 recurrent opacification/atelectasis of the right upper lobe 2 history of non-small cell lung cancer with a previous right lower lobe/right middle lobe resection 3 Pseudomonas and Moraxella cultures from the right lung currently on IV Fortaz. A bronchoscopy and bronchial lavage was done and the results are still pending 4 atrial fibrillation 5 diabetes mellitus, type II 6 history of CVA 7 hypertension 8 hyperlipidemia 9 history of falls 10 chronic renal failure Plan No plans for bronchoscopy today. The patient is not much symptomatic and the right upper lobe collapse is not causing any significant decompensation is as per status. I would like to await for the results of the lavage was collected yesterday during the bronchoscopy. I can tell the patient has had at least 5 bronchoscopies and he continues to accumulate mucous in the right upper lobe. As such I'll be awaiting for the final results of the cultures and discussed the case with ID and see if there is any antibiotic modification of became due to improve his pneumonia and respiratory secretion production. No plans for bronchoscopy today. He may need another one within next 24-48 hours. Repeat chest x-ray in the morning. Aggressive pulmonary toileting and chest PT. The patient is also using BiPAP overnight.
--- NOTE | 2017-09-02 10:50 | P.PN ---
Subjective Progress Note Date: 09/02/17 Principal diagnosis: Patient was admitted with is very respiratory distress secondary to mucous plugging secondary to Pseudomonas pneumonia. Patient has a long-standing history of COPD with congestive heart failure, and lung cancer. Patient has undergone 4 bronchoscopies during this stay last one was earlier today per Dr. Bañuelos his note suggests there's been some improvement in the pulmonary process. This patient has been reluctant to participate in physical therapy as well as pulmonary therapy and CPT treatment I did talk with him at length yesterday trying to impress on him the need to participate in his recovery and to improve the outcome patient said that he would try to participate more actively this evening when I evaluated him and he appeared to be moving air much better the lung rushing were almost clear at this time and he seemed to be in better spirits. PICC line was placed we also discussed the likelihood that patient would go to inpatient rehab for at least a week or 2. Progress note for 08/27/2017 at approximately 10:51 AM Patient has improved minimally still on IV antibiotics blood sugars are stable, atrial fibrillation is stable White count has improved currently 17.9, renal function improved BUN 25 creatinine 1.23 09/02/2017 [place] states he's feeling well and states he is moving air well. And underwent I believe the sixth bronchoscopy yesterday during this stay for removal of mucous plugs. Chest x-rays shows from this morning shows recurrent opacification in the right upper lobe. At that patient states she's feeling much better fever no chills no sweating. Dr. Mckeon pulmonology bronched him yesterday did repeat cultures from the right upper lobe and is awaiting results. Patient is on 5-6 L of oxygen per nasal cannula. Being evaluated by infectious disease. Still on Fortaz IV. Otherwise patient states he feels well and is doing well today Objective - Vital Signs Vital signs: Vital Signs Temp 97.6 F 09/02/17 08:00 Pulse 94 09/02/17 08:17 Resp 18 09/02/17 08:00 BP 111/67 09/02/17 08:00 Pulse Ox 96 09/02/17 08:00 Intake & Output 09/01/17 09/02/17 09/02/17 18:59 06:59 18:59 Intake Total 700 160 180 Output Total 150 675 325 Balance 550 -515 -145 Weight 132.1 kg Intake: IV 200 160 Sodium Chloride 0.9% 1, 160 000 ml @ 20 mls/hr IV . Q24H [facility] Rx#:[id number] cefTAZidime 2 gm In 100 Sodium Chloride 0.9% 100 ml @ 100 mls/hr IVPB Q8HR [facility] Rx#:[id number] Oral 500 180 Output: Urine 150 675 325 Other: Voiding Method Urinal Urinal # Bowel Movements 1 - Exam General: [Patient awake, alert and oriented times 3. Patient in no acute distress.] HEENT: [PERRL. EOMI. No pharyngeal erythema or exudate.] Neck: [No adenopathy.] Cardiac: [Heart regular in rate and rhythm. No S3. No S4. No clicks, rubs. No murmur.] Lungs: Breath sounds were significantly improved respiratory efforts sided improved sats were up a 2-93% on 5 L nasal cannula Abdomen: [No mass. No organomegaly. Bowel sounds presnt and normoactive in all 4 quadrants.] Extremes: [No edema no cyanosis no claudication normal pulses] : [] Musculoskeletal: [No joint erythema, edema or tenderness.] Skin: [No rash.] Neurologic: [No lateralizing deficits. CN II - XII grossly intact.] Lymphatic: [No adenopathy.] - Labs CBC & Chem 7: 08/31/17 04:20 09/02/17 05:19 Labs: Abnormal Lab Results - Last 24 Hours (Table) 09/01/17 09/01/17 09/01/17 Range/Units 11:53 16:40 20:29 Sodium (137-145) mmol/L Chloride (98-107) mmol/L BUN (9-20) mg/dL Creatinine (0.66-1.25) mg/dL Glucose (74-99) mg/dL POC Glucose (mg/dL) 135 H 175 H 145 H (75-99) mg/dL 09/02/17 09/02/17 Range/Units 05:19 05:52 Sodium 133 L (137-145) mmol/L Chloride 95 L (98-107) mmol/L BUN 40 H (9-20) mg/dL Creatinine 1.60 H (0.66-1.25) mg/dL Glucose 151 H (74-99) mg/dL POC Glucose (mg/dL) 181 H (75-99) mg/dL Microbiology - Last 24 Hours (Table) 09/01/17 14:46 Gram Stain - Preliminary Bronchoalviolar Lavage - Right Bronchial Washings Culture - Preliminary Assessment and Plan (1) Pseudomonas aeruginosa infection Narrative/Plan: Pneumonia patient is currently on Fortaz antibiotic therapy is also been bronched 6 times Patient is quite ill although he seems to be improving slowly Status: Acute (2) Acute right hip pain Narrative/Plan: Chronic secondary to fall a year ago was up a surgery has been consulted and basically is signed off will get patient up standing with physical therapy will also treat with appropriately pain medicine Status: Acute (3) At risk for readmission to hospital Narrative/Plan: Patient hopefully will be a candidate for rehab in the not so distant future currently doing IV antibiotic therapy PICC line was placed patient was bronched again we are attempting to improve outcome with this many modalities as possible Status: Acute (4) Diabetes Narrative/Plan: Controlled with current meds Status: Acute (5) Hidradenitis suppurativa Narrative/Plan: By history this is been going on for several years and is currently in the best control it's ever been although it still significant drainage is noted Status: Acute Plan: plan as recommended at this time patient is improving slowly we will follow closely Time with Patient: Greater than 30
[2017-09-02 12:17] LABS: Glucose,Whole Blood 137 mg/dL (75-99)
[2017-09-02 16:44] LABS: Glucose,Whole Blood 198 mg/dL (75-99)
[2017-09-02] MEDS: MULTIVITAMINS, THERA 1 EACH TAB PO SCH (21:06)
[2017-09-02] MEDS: SODIUM CHLORIDE 0.9% 1,000 ML IV SCH (21:07)
[2017-09-02 21:11] LABS: Glucose,Whole Blood 171 mg/dL (75-99)
[2017-09-03 06:00] LABS: Glucose,Whole Blood 136 mg/dL (75-99)
[2017-09-03 06:12] LABS: Calcium 8.4 mg/dL (8.4-10.2); Potassium 4.2 mmol/L (3.5-5.1)
[2017-09-03] MEDS: PANTOPRAZOLE 40 MG TABLET PO SCH (06:30)
[2017-09-03] MEDS: INSULIN LISPRO (humaLOG) 300 UNIT/3 ML VIAL SQ SCH ×4 (06:30→22:10)
[2017-09-03] MEDS: CALCIUM CARB-VIT D 500MG-200UN 1 EACH TAB PO SCH ×2 (06:30→17:33)
[2017-09-03] MEDS: oxyCODONE-APAP 10-325MG 1 EACH TAB PO PRN ×2 (06:35→22:25)
[2017-09-03] MEDS: LIDOCAINE 5% PATCH TOPICAL SCH (07:20)
[2017-09-03] MEDS: BACITRACIN 500 UNIT/GM OINT 28.4 GM TUBE TOPICAL SCH (07:20)
[2017-09-03] MEDS: FUROSEMIDE 40 MG TAB PO SCH (07:20)
[2017-09-03] MEDS: MEGESTROL 400 MG/10 ML CUP PO SCH (07:21)
[2017-09-03] MEDS: DILTIAZEM CD 180 MG CAP.ER.24H PO SCH (07:21)
[2017-09-03] MEDS: guaiFENesin 600 MG TABLET.ER PO SCH ×2 (07:21→20:08)
[2017-09-03] MEDS: CITALOPRAM HYDROBROMIDE 20 MG TAB PO SCH (07:21)
[2017-09-03] MEDS: METOPROLOL SUCCINATE (ER) 25 MG TAB.ER.24H PO SCH ×2 (07:22→20:08)
[2017-09-03] MEDS: LINAGLIPTIN 5 MG TABLET PO SCH (07:22)
[2017-09-03] MEDS: ALLOPURINOL 100 MG TAB PO SCH (07:22)
[2017-09-03] MEDS: predniSONE 10 MG TAB PO SCH (07:23)
[2017-09-03] MEDS: SYMBICORT 160-4.5 MCG INHALER INHALATION SCH ×3 (08:19→21:24)
[2017-09-03] MEDS: IPRATROPIUM-ALBUTEROL 3 ML NEB INHALATION SCH ×5 (08:19→21:24)
--- NOTE | 2017-09-03 09:00 | P.PN ---
Subjective Patient is seen in follow-up for acute kidney injury on chronic kidney disease. Patient has chronic kidney disease stage III secondary to chronic NSAID use and cisplatin toxicity with baseline creatinine near 1.6-1.8 recently. Renal function is worse today with creatinine at 1.9. He is currently being treated for pneumonia with IV antibiotics. he's also had mucous plugging and has undergone multiple bronchoscopies this admission. Most recent bronchoscopy was September 01. His dyspnea is improved. He has been voiding. Vital signs are stable. General: The patient appeared well nourished and normally developed. HEENT: Head exam is unremarkable. Neck is without jugular venous distension. LUNGS: Lungs are clear to auscultation and percussion. Breath sounds decreased. HEART: Rate and Rhythm are regular. First and second heart sounds normal. No murmurs, rubs or gallops. ABDOMEN: Abdominal exam reveals normal bowel sounds. Non-tender and non- distended. No evidence of peritonitis. EXTREMITITES: No edema. Objective - Vital Signs Vital signs: Vital Signs Temp 97.2 F L 09/03/17 08:00 Pulse 90 09/03/17 08:30 Resp 17 09/03/17 08:00 BP 113/81 09/03/17 08:00 Pulse Ox 100 09/03/17 08:00 Intake & Output 09/02/17 09/03/17 09/03/17 18:59 06:59 18:59 Intake Total 800 260 Output Total 325 500 350 Balance 475 -240 -350 Weight 136 kg Intake: IV 260 Sodium Chloride 0.9% 1, 160 000 ml @ 20 mls/hr IV . Q24H [facility] Rx#:[id number] cefTAZidime 2 gm In 100 Sodium Chloride 0.9% 100 ml @ 100 mls/hr IVPB Q8HR [facility] Rx#:[id number] Oral 800 Output: Urine 325 500 350 Other: Voiding Method Urinal - Labs CBC & Chem 7: 08/31/17 04:20 09/03/17 05:13 Labs: Abnormal Lab Results - Last 24 Hours (Table) 09/02/17 09/02/17 09/02/17 Range/Units 11:36 16:36 20:34 Sodium (137-145) mmol/L Chloride (98-107) mmol/L BUN (9-20) mg/dL Creatinine (0.66-1.25) mg/dL Glucose (74-99) mg/dL POC Glucose (mg/dL) 137 H 198 H 171 H (75-99) mg/dL 09/03/17 09/03/17 Range/Units 05:13 05:59 Sodium 135 L (137-145) mmol/L Chloride 97 L (98-107) mmol/L BUN 41 H (9-20) mg/dL Creatinine 1.90 H (0.66-1.25) mg/dL Glucose 130 H (74-99) mg/dL POC Glucose (mg/dL) 136 H (75-99) mg/dL Assessment and Plan Plan: Assessment: #1. Nonoliguric acute kidney injury secondary to ischemic ATN secondary to hypotension and diuresis. Creatinine peaked at 2.4 for this admission. Higher compared to yest - 1.9 today. No proteinuria on urinalysis. #2. Right-sided pneumonia. Maintained on antibiotics per infectious disease recommendations. #3. Recurrent mucus plugging status post 6 bronchoscopies this admission. #4. Chronic kidney disease stage III secondary to chronic NSAID use as well as cisplatin. Recently creatinine has been near 1.6-1.8. #5. Acute hypoxic respiratory failure status post bronchoscopy with clearing of mucous plugging. #6. Non-small cell lung cancer being followed by oncology. #7. Hypomagnesemia secondary to diuresis. Improved post replacement. #8. Hypocalcemia secondary to acute kidney injury. Improved. Maintained on Os -Clifton D as well as calcitriol. Plan: Encouraged oral intake. Continue Os-Clifton and Rocaltrol. Avoid nephrotoxic agents and hypotensive episodes. Continue to monitor renal function and urine output. Repeat electrolytes in the morning. Repeat UA. Hold diuretics. Check PVR.
[2017-09-03 11:59] LABS: Glucose,Whole Blood 167 mg/dL (75-99)
--- NOTE | 2017-09-03 12:08 | P.PN ---
Subjective Progress Note Date: 09/03/17 Principal diagnosis: Patient was admitted with is very respiratory distress secondary to mucous plugging secondary to Pseudomonas pneumonia. Patient has a long-standing history of COPD with congestive heart failure, and lung cancer. Patient has undergone 4 bronchoscopies during this stay last one was earlier today per Dr. Bañuelos his note suggests there's been some improvement in the pulmonary process. This patient has been reluctant to participate in physical therapy as well as pulmonary therapy and CPT treatment I did talk with him at length yesterday trying to impress on him the need to participate in his recovery and to improve the outcome patient said that he would try to participate more actively this evening when I evaluated him and he appeared to be moving air much better the lung rushing were almost clear at this time and he seemed to be in better spirits. PICC line was placed we also discussed the likelihood that patient would go to inpatient rehab for at least a week or 2. Progress note for 08/27/2017 at approximately 10:51 AM Patient has improved minimally still on IV antibiotics blood sugars are stable, atrial fibrillation is stable White count has improved currently 17.9, renal function improved BUN 25 creatinine 1.23 09/02/2017 Asians states he's feeling well and states he is moving air well. And underwent I believe the sixth bronchoscopy yesterday during this stay for removal of mucous plugs. Chest x-rays shows from this morning shows recurrent opacification in the right upper lobe. At that patient states she's feeling much better fever no chills no sweating. Dr. Mckeon pulmonology bronched him yesterday did repeat cultures from the right upper lobe and is awaiting results. Patient is on 5-6 L of oxygen per nasal cannula. Being evaluated by infectious disease. Still on Fortaz IV. Otherwise patient states he feels well and is doing well today 09/03/2017 Javid is moving air well today, has undergone multiple bronchoscopies and removal of mucous plugs chest x-ray from yesterday suggested recurrent opacification. Patient denies fever or chills or sweating. The sats at 1041 suggested O2 sats are 94% on room air I will definitely confirm this, however patient is significantly improving Patient is sleeping but arousable this morning pulse ox today was 98% on 4 L nasal cannula is 02 was turned down to 3 L per nasal cannula. Patient is improving slowly, respiratory effort is improved, patient still complains of overall weakness fatigue. History of COPD, lung cancer, congestive heart failure, and chronic hidradenitis patient has been undergoing trial of Humira given his immune status and pulmonary status which considers stopping this due to the historical side effect of developing recurrent pulmonary infection his immune system is already compromised secondary to his other past histories which also include diabetes. Currently being treated for Pseudomonas pneumonia as well we'll continue to follow closely note patient underwent fourth bronchoscopy yesterday and seems to be improved this morning Objective - Vital Signs Vital signs: Vital Signs Temp 97.7 F 09/03/17 10:41 Pulse 96 09/03/17 10:41 Resp 18 09/03/17 10:59 BP 118/66 09/03/17 10:41 Pulse Ox 94 L 09/03/17 10:41 Intake & Output 09/02/17 09/03/17 09/03/17 18:59 06:59 18:59 Intake Total 800 260 Output Total 325 500 350 Balance 475 -240 -350 Weight 136 kg Intake: IV 260 Sodium Chloride 0.9% 1, 160 000 ml @ 20 mls/hr IV . Q24H [facility] Rx#:[id number] cefTAZidime 2 gm In 100 Sodium Chloride 0.9% 100 ml @ 100 mls/hr IVPB Q8HR [facility] Rx#:[id number] Oral 800 Output: Urine 325 500 350 Other: Voiding Method Urinal - Exam General: [Patient awake, alert and oriented times 3. Patient in no acute distress.] HEENT: [PERRL. EOMI. No pharyngeal erythema or exudate.] Neck: [No adenopathy.] Cardiac: [Heart regular in rate and rhythm. No S3. No S4. No clicks, rubs. No murmur.] Lungs: Breath sounds were significantly improved respiratory efforts sided improved sats were up a 2-93% on 3L nasal cannula Abdomen: [No mass. No organomegaly. Bowel sounds presnt and normoactive in all 4 quadrants.] Extremes: [No edema no cyanosis no claudication normal pulses] : [] Musculoskeletal: [No joint erythema, edema or tenderness.] Skin: [No rash.] Neurologic: [No lateralizing deficits. CN II - XII grossly intact.] Lymphatic: [No adenopathy.] - Labs CBC & Chem 7: 08/31/17 04:20 09/03/17 05:13 Labs: Abnormal Lab Results - Last 24 Hours (Table) 09/02/17 09/02/17 09/02/17 Range/Units 11:36 16:36 20:34 Sodium (137-145) mmol/L Chloride (98-107) mmol/L BUN (9-20) mg/dL Creatinine (0.66-1.25) mg/dL Glucose (74-99) mg/dL POC Glucose (mg/dL) 137 H 198 H 171 H (75-99) mg/dL 09/03/17 09/03/17 09/03/17 Range/Units 05:13 05:59 11:42 Sodium 135 L (137-145) mmol/L Chloride 97 L (98-107) mmol/L BUN 41 H (9-20) mg/dL Creatinine 1.90 H (0.66-1.25) mg/dL Glucose 130 H (74-99) mg/dL POC Glucose (mg/dL) 136 H 167 H (75-99) mg/dL Assessment and Plan (1) Pseudomonas aeruginosa infection Status: Acute (2) Acute right hip pain Status: Acute (3) At risk for readmission to hospital Status: Acute (4) Diabetes Status: Acute (5) Hidradenitis suppurativa Status: Acute Time with Patient: Greater than 30
--- NOTE | 2017-09-03 14:15 | P.PN ---
Subjective Progress Note Date: 09/03/17 67-year-old male patient who came into the intensive care yesterday with a complete right lung collapse. I performed a bronchoscopy and therapeutic airway suctioning and copious amounts of mucous plug was aspirated from the right lung. Postop, the patient a chest x-ray today and the right lung is adequately expanded and the patient has adequate rotation of the right upper lobe. Note that he has a right middle lobe/right lower lobe resection and the stump looked quite healthy during the bronchoscope. Is currently on fleets of oxygen nasal cannula. Previous cultures have showed pseudomonas and Moraxella and the patient is currently on IV Fortaz. No fever. No chills. No night sweats. He is tolerating his breathing treatments. He is tolerating his antibiotics. No signs of septicemia. No aspiration. No other complaints otherwise. He was on BiPAP on and off throughout the night. Aggressive chest PT is being performed. No other significant events over the past 24 hours. On 08/30/2017 the patient is being seen in follow-up. Is doing extremely well. No respiratory difficulties. Chest x-ray shows expansion of the right upper lobe with adequate aeration. Limited cough without any significant hemoptysis. He is able to bring up some sputum. He is using incentive spirometer. Afebrile. Hemodynamically stable. No nausea. No vomiting. Tolerating diet. No other significant events over the past 24 hours. The patient remains on IV Fortaz for now. He is having aggressive chest PT and pulmonary toileting for now. The patient was seen again today 08/31/2017 in follow-up in the intensive care unit. He is currently resting quite comfortably in bed. He is awake and alert in no acute distress. He did utilize BiPAP / at 40% FiO2 throughout the evening. He is currently on 6 L high flow nasal cannula to maintain O2 saturations in the 90s. He's been hemodynamically stable. Afebrile. Bronchial findings from 08/25/2017 revealed no significant findings. Previously he had pseudomonas aeruginosa from 08/16/2017. He remains on ceftazidime. His chest x-ray continues to show improvement in his right lobe aeration. He continues to receive aggressive chest physiotherapy and pulmonary toileting. He continues to work well of the incentive spirometer and cough and deep breathing exercises. On 09/01/2017 patient's repeat chest x-ray and straight increased density within the right hemothorax and complete opacification with volume loss of the right lung. On evaluation patient is resting in bed, he did wear his BiPAP last night, he states he is slightly more short of breath but denies respiratory distress. He appears quite comfortable estimating in bed, on 6 L per high flow nasal cannula with O2 saturations around 93%. His lung sounds reveal no air entry on the right, clear with a few scattered rales on the left. He has been afebrile, his I-S effort remains poor, is only able to achieve 500 on it today. He has been sitting up in the chair on the daily basis, his bronchial washings from 08/25/2017 were positive for Corynebacterium striatum. Continues on IV ceftazidime, oral steroids and nebulizer treatments around-the- clock. He already ate breakfast today. Will be made nothing by mouth now, and she will be scheduled for repeat bronchoscopy with bronchial alveolar lavage with Dr. Mckeon at 1400 today and the endoscopic suite. Patient is in agreement with the plan. On 09/02/2017 the patient has no specific complaints. He is feeling well. After doing adequate therapeutic airway suctioning and removal of mucous plugs yesterday for a bronchoscopy, the patient's chest x-ray from today showing recurrent opacification of the right upper lobe. Despite that, the patient is not having any major stroke difficulties. No fever. No chills. No sweats. No fever. No chills. I'm still awaiting the repeat cultures that were collected from the right upper lobe to see if there is any antibiotic modifications that we can do to improve this patient's mucous production and recurrent atelectasis of the right upper lobe. He is hemodynamically stable. He is on 5-6 L of oxygen nasal cannula. He is being seen by infectious disease. He is still on IV Fortaz. No other significant events overnight. On 09/03/2017 the patient has no new complaints. Is still low 60s of oxygen by nasal cannula. Right upper lobe remains atelectatic due to mucous plugs. Awaiting final cultures from the lavage of the right upper lobe that was obtained on Monday. Meanwhile, remains on antibiotics and the patient is doing aggressive pulmonary toileting. He is doing deep breathing and coughing and he is using BiPAP overnight. Objective - Vital Signs Vital signs: Vital Signs Temp 97.7 F 09/03/17 10:41 Pulse 96 09/03/17 10:41 Resp 18 09/03/17 10:59 BP 118/66 09/03/17 10:41 Pulse Ox 94 L 09/03/17 10:41 Intake & Output 09/02/17 09/03/17 09/03/17 18:59 06:59 18:59 Intake Total 800 260 Output Total 325 500 350 Balance 475 -240 -350 Weight 136 kg Intake: IV 260 Sodium Chloride 0.9% 1, 160 000 ml @ 20 mls/hr IV . Q24H [facility] Rx#:[id number] cefTAZidime 2 gm In 100 Sodium Chloride 0.9% 100 ml @ 100 mls/hr IVPB Q8HR [facility] Rx#:[id number] Oral 800 Output: Urine 325 500 350 Other: Voiding Method Urinal - Exam No acute distress, oriented 3 HEENT examination is unremarkable. Mucous membranes are moist. No oral lesions. Neck supple. Full range of motion. No adenopathy or thyromegaly. Neck veins are flat. Cardiovascular examination reveals regular rhythm rate. S1-S2 normal. No S3 or S4. No discernible murmur. Lungs reveal diminished breath sounds on the right compared to the left. The patient also has symptoms diffuse rhonchi. Some crackles are also noted on the right side. Left breath sounds are mostly clear.. Abdomen soft bowel sounds are heard. No masses or tenderness. Extremities are intact. No cyanosis clubbing but there is slight edema Skin is without rash or lesion. Neurologic examination is brief but nonfocal. - Labs CBC & Chem 7: 08/31/17 04:20 09/03/17 05:13 Labs: Abnormal Lab Results - Last 24 Hours (Table) 09/02/17 09/02/17 09/03/17 Range/Units 16:36 20:34 05:13 Sodium 135 L (137-145) mmol/L Chloride 97 L (98-107) mmol/L BUN 41 H (9-20) mg/dL Creatinine 1.90 H (0.66-1.25) mg/dL Glucose 130 H (74-99) mg/dL POC Glucose (mg/dL) 198 H 171 H (75-99) mg/dL 09/03/17 09/03/17 Range/Units 05:59 11:42 Sodium (137-145) mmol/L Chloride (98-107) mmol/L BUN (9-20) mg/dL Creatinine (0.66-1.25) mg/dL Glucose (74-99) mg/dL POC Glucose (mg/dL) 136 H 167 H (75-99) mg/dL Assessment and Plan Plan: Assessment 1 recurrent opacification/atelectasis of the right upper lobe. Repeat chest x- ray on Monday. Aggressive pulmonary toileting. Awaiting final results of the bronchioloalveolar lavage was collected on Monday, essentially 2 days ago. Still on 6 L about 2 by nasal cannula. 2 history of non-small cell lung cancer with a previous right lower lobe/right middle lobe resection 3 Pseudomonas and Moraxella cultures from the right lung currently on IV Fortaz. A bronchoscopy and bronchial lavage was done and the results are still pending 4 atrial fibrillation 5 diabetes mellitus, type II 6 history of CVA 7 hypertension 8 hyperlipidemia 9 history of falls 10 chronic renal failure Plan No plans for bronchoscopy today. The patient is not much symptomatic and the right upper lobe collapse is not causing any significant decompensation is as per status. I would like to await for the results of the lavage was collected yesterday during the bronchoscopy. I can tell the patient has had at least 5 bronchoscopies and he continues to accumulate mucous in the right upper lobe. On today's subsequent evaluation there is no signs of respiratory compromise or worsening in oxygenation. Repeat chest x-ray in the morning. Awaiting final results of the bronchioloalveolar lavage. May need further antibiotic adjustments. Continue aggressive pulmonary toileting. We'll follow
[2017-09-03 17:29] LABS: Glucose,Whole Blood 206 mg/dL (75-99)
[2017-09-03] MEDS: MULTIVITAMINS, THERA 1 EACH TAB PO SCH (20:08)
[2017-09-03] MEDS: SODIUM CHLORIDE 0.9% 1,000 ML IV SCH (20:09)
[2017-09-03 21:13] LABS: Glucose,Whole Blood 155 mg/dL (75-99)
[2017-09-04] MEDS: oxyCODONE-APAP 10-325MG 1 EACH TAB PO PRN ×2 (05:21→17:16)
[2017-09-04] MEDS: BACITRACIN 500 UNIT/GM OINT 28.4 GM TUBE TOPICAL SCH (05:31)
[2017-09-04 05:56] LABS: Appearance,Urine Cloudy (Clear); Bilirubin,Urine Negative (Negative); Glucose,Urine (UA) Negative (Negative); Granular Casts,Urine 175 /lpf (0); Ketones,Urine Negative (Negative); Leukocyte Esterase,Urine Small (Negative); Nitrite,Urine Negative (Negative); PH, Urine 5.5 (5.0-8.0); Particle Count 6766; Protein,Urine 1+ (Negative); RBC,Urine 2 /hpf (0-5); Specific Gravity,Urine 1.014 (1.001-1.035); UA Billing (MACRO vs. MICRO) MICRO; Urobilinogen,Urine <2.0 mg/dL (<2.0); WBC,Urine 36 /hpf (0-5)
[2017-09-04 05:59] LABS: Glucose,Whole Blood 132 mg/dL (75-99)
[2017-09-04] MEDS: PANTOPRAZOLE 40 MG TABLET PO SCH (06:31)
[2017-09-04] MEDS: CALCIUM CARB-VIT D 500MG-200UN 1 EACH TAB PO SCH ×2 (06:31→17:16)
[2017-09-04] MEDS: INSULIN LISPRO (humaLOG) 300 UNIT/3 ML VIAL SQ SCH ×4 (06:34→21:36)
[2017-09-04 07:36] LABS: Calcium 8.6 mg/dL (8.4-10.2); Potassium 4.4 mmol/L (3.5-5.1)
--- NOTE | 2017-09-04 07:50 | P.PN ---
Subjective Patient is seen in follow-up for acute kidney injury on chronic kidney disease. Patient has chronic kidney disease stage III secondary to chronic NSAID use and cisplatin toxicity with baseline creatinine near 1.6-1.8 recently. Renal function is worsening the last couple of days with creatinine up to 1.9 as of September 03. Diuretics were discontinued. Creatinine today is a little improved to 1.83.. He is currently being treated for pneumonia with IV antibiotics. He's also had mucous plugging and has undergone multiple bronchoscopies this admission. Most recent bronchoscopy was September 01. He did get a little short of breath last night but states it improved once he wore the BiPAP. He has been voiding. Vital signs are stable. General: The patient appeared well nourished and normally developed. HEENT: Head exam is unremarkable. Neck is without jugular venous distension. LUNGS: Lungs are clear to auscultation and percussion. Breath sounds decreased. HEART: Rate and Rhythm are regular. First and second heart sounds normal. No murmurs, rubs or gallops. ABDOMEN: Abdominal exam reveals normal bowel sounds. Non-tender and non- distended. No evidence of peritonitis. EXTREMITITES: No edema. Objective - Vital Signs Vital signs: Vital Signs Temp 97.3 F L 09/04/17 04:00 Pulse 89 09/04/17 04:00 Resp 18 09/04/17 04:00 BP 114/59 09/04/17 04:00 Pulse Ox 98 09/04/17 04:00 Intake & Output 09/03/17 09/04/17 09/04/17 18:59 06:59 18:59 Output Total 350 500 Balance -350 -500 Weight 141 kg Output: Urine 350 500 Other: Voiding Method Urinal - Labs CBC & Chem 7: 08/31/17 04:20 09/04/17 05:57 Labs: Abnormal Lab Results - Last 24 Hours (Table) 09/03/17 09/03/17 09/03/17 Range/Units 11:42 16:49 21:11 BUN (9-20) mg/dL Creatinine (0.66-1.25) mg/dL Glucose (74-99) mg/dL POC Glucose (mg/dL) 167 H 206 H 155 H (75-99) mg/dL Urine Protein (Negative) Urine Blood (Negative) Ur Leukocyte Esterase (Negative) Urine WBC (0-5) /hpf Urine Yeast (Budding) (None) /hpf 09/04/17 09/04/17 09/04/17 Range/Units 02:00 05:57 05:57 BUN 39 H (9-20) mg/dL Creatinine 1.83 H (0.66-1.25) mg/dL Glucose 114 H (74-99) mg/dL POC Glucose (mg/dL) 132 H (75-99) mg/dL Urine Protein 1+ H (Negative) Urine Blood Small H (Negative) Ur Leukocyte Esterase Small H (Negative) Urine WBC 36 H (0-5) /hpf Urine Yeast (Budding) Few H (None) /hpf Assessment and Plan Plan: Assessment: #1. Nonoliguric acute kidney injury secondary to ischemic ATN secondary to hypotension and diuresis. Creatinine peaked at 2.4 for this admission. It was worsening the last few days with creatinine 1.9 as of September 03. Diuretics were discontinued. Creatinine down to 1.83 today. No evidence of retention. No proteinuria on urinalysis but repeat UA shows 1+ proteinuria which can be nonspecific in the setting of acute kidney injury. Granular casts on UA suggestive of ATN. #2. Right-sided pneumonia. Maintained on antibiotics per infectious disease recommendations. #3. Recurrent mucus plugging status post 6 bronchoscopies this admission. #4. Chronic kidney disease stage III secondary to chronic NSAID use as well as cisplatin. Recently creatinine has been near 1.6-1.8. #5. Acute hypoxic respiratory failure status post bronchoscopy with clearing of mucous plugging. #6. Non-small cell lung cancer being followed by oncology. #7. Hypomagnesemia secondary to diuresis. Improved post replacement. #8. Hypocalcemia secondary to acute kidney injury. Improved. Maintained on Os -Clifton D as well as calcitriol. Plan: Encouraged oral intake. Continue Os-Clifton and Rocaltrol. Avoid nephrotoxic agents and hypotensive episodes. Continue to monitor renal function and urine output. Repeat electrolytes in the morning. Check urine culture. Hold diuretics. Recheck magnesium level.
[2017-09-04] MEDS: SYMBICORT 160-4.5 MCG INHALER INHALATION SCH ×2 (08:42→19:28)
[2017-09-04] MEDS: IPRATROPIUM-ALBUTEROL 3 ML NEB INHALATION SCH ×4 (08:42→19:28)
[2017-09-04] MEDS: LOPERAMIDE 2 MG CAP PO PRN (08:59)
[2017-09-04] MEDS: LIDOCAINE 5% PATCH TOPICAL SCH (08:59)
[2017-09-04] MEDS: METOPROLOL SUCCINATE (ER) 25 MG TAB.ER.24H PO SCH ×2 (08:59→21:33)
[2017-09-04] MEDS: DILTIAZEM CD 180 MG CAP.ER.24H PO SCH (08:59)
--- NOTE | 2017-09-04 09:39 | XR ---
EXAMINATION TYPE: XR chest 1V portable DATE OF EXAM: 09/04/2017 COMPARISON: 09/02/2017 HISTORY: Abnormal x-ray TECHNIQUE: Single frontal view of the chest is obtained. FINDINGS: Persistent complete opacification right hemithorax. Thoracic aorta appears to be enlarged. Left lung clear. Left-sided PICC line seen. Heart size stable. No pneumothorax. IMPRESSION: 1. Persistent complete opacification of the right hemithorax unchanged from the prior exam.
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
--- NOTE | 2017-09-04 11:13 | P.PN ---
Subjective Principal diagnosis: Acute fall and possible right hip fracture, right lung collapse requiring bronchoscopy and BAL 5 for mucous plug suctioning from right mainstem bronchus. 67-year-old male patient who came into the intensive care yesterday with a complete right lung collapse. I performed a bronchoscopy and therapeutic airway suctioning and copious amounts of mucous plug was aspirated from the right lung. Postop, the patient a chest x-ray today and the right lung is adequately expanded and the patient has adequate rotation of the right upper lobe. Note that he has a right middle lobe/right lower lobe resection and the stump looked quite healthy during the bronchoscope. Is currently on fleets of oxygen nasal cannula. Previous cultures have showed pseudomonas and Moraxella and the patient is currently on IV Fortaz. No fever. No chills. No night sweats. He is tolerating his breathing treatments. He is tolerating his antibiotics. No signs of septicemia. No aspiration. No other complaints otherwise. He was on BiPAP on and off throughout the night. Aggressive chest PT is being performed. No other significant events over the past 24 hours. On 08/30/2017 the patient is being seen in follow-up. Is doing extremely well. No respiratory difficulties. Chest x-ray shows expansion of the right upper lobe with adequate aeration. Limited cough without any significant hemoptysis. He is able to bring up some sputum. He is using incentive spirometer. Afebrile. Hemodynamically stable. No nausea. No vomiting. Tolerating diet. No other significant events over the past 24 hours. The patient remains on IV Fortaz for now. He is having aggressive chest PT and pulmonary toileting for now. The patient was seen again today 08/31/2017 in follow-up in the intensive care unit. He is currently resting quite comfortably in bed. He is awake and alert in no acute distress. He did utilize BiPAP 10/25 at 40% FiO2 throughout the evening. He is currently on 6 L high flow nasal cannula to maintain O2 saturations in the 90s. He's been hemodynamically stable. Afebrile. Bronchial findings from 08/25/2017 revealed no significant findings. Previously he had pseudomonas aeruginosa from 08/16/2017. He remains on ceftazidime. His chest x-ray continues to show improvement in his right lobe aeration. He continues to receive aggressive chest physiotherapy and pulmonary toileting. He continues to work well of the incentive spirometer and cough and deep breathing exercises. On 09/01/2017 patient's repeat chest x-ray and straight increased density within the right hemothorax and complete opacification with volume loss of the right lung. On evaluation patient is resting in bed, he did wear his BiPAP last night, he states he is slightly more short of breath but denies respiratory distress. He appears quite comfortable estimating in bed, on 6 L per high flow nasal cannula with O2 saturations around 93%. His lung sounds reveal no air entry on the right, clear with a few scattered rales on the left. He has been afebrile, his I-S effort remains poor, is only able to achieve 500 on it today. He has been sitting up in the chair on the daily basis, his bronchial washings from 08/25/2017 were positive for Corynebacterium striatum. Continues on IV ceftazidime, oral steroids and nebulizer treatments around-the- clock. He already ate breakfast today. Will be made nothing by mouth now, and she will be scheduled for repeat bronchoscopy with bronchial alveolar lavage with Dr. Mckeon at 1400 today and the endoscopic suite. Patient is in agreement with the plan. On 09/02/2017 the patient has no specific complaints. He is feeling well. After doing adequate therapeutic airway suctioning and removal of mucous plugs yesterday for a bronchoscopy, the patient's chest x-ray from today showing recurrent opacification of the right upper lobe. Despite that, the patient is not having any major stroke difficulties. No fever. No chills. No sweats. No fever. No chills. I'm still awaiting the repeat cultures that were collected from the right upper lobe to see if there is any antibiotic modifications that we can do to improve this patient's mucous production and recurrent atelectasis of the right upper lobe. He is hemodynamically stable. He is on 5-6 L of oxygen nasal cannula. He is being seen by infectious disease. He is still on IV Fortaz. No other significant events overnight. On 09/03/2017 the patient has no new complaints. Is still low 60s of oxygen by nasal cannula. Right upper lobe remains atelectatic due to mucous plugs. Awaiting final cultures from the lavage of the right upper lobe that was obtained on Monday. Meanwhile, remains on antibiotics and the patient is doing aggressive pulmonary toileting. He is doing deep breathing and coughing and he is using BiPAP overnight. On 09/04/2017, patient has no complaints, however he is still on relatively high O2 flow, 6 L nasal cannula, chest x-ray showed complete collapse of the right lung and whitening gout of the right upper lobe. Patient remains on antibiotics, remains on bronchodilators, he has been on BiPAP intermittently. Patient had difficulty clearing get big mucous plug yesterday, and he almost had respiratory arrest, but somehow he managed to do okay. Today he is asymptomatic, but chest x-ray is quite abnormal, and I had a discussion with him and his and his admitting physician that I plan to repeat bronchoscopy today and clean up the right upper lobe again. Labs were reviewed, chest x-ray was reviewed, cultures were all reviewed, Objective - Vital Signs Vital signs: Vital Signs Temp 96.8 F L 09/04/17 08:00 Pulse 100 09/04/17 09:00 Resp 18 09/04/17 08:00 BP 123/71 09/04/17 08:00 Pulse Ox 100 09/04/17 08:00 Intake & Output 09/03/17 09/04/17 09/04/17 18:59 06:59 18:59 Output Total 350 500 Balance -350 -500 Weight 141 kg Output: Urine 350 500 Other: Voiding Method Urinal # Voids 500 # Bowel Movements 1 - Exam Physical Exam: Revealed a 67-year-old white male, obese, nasal cannula in mild respiratory distress HEENT:[Neck is supple.] [No neck masses.] [No thyromegaly.] [No JVD.] Chest: [Symmetrical chest expansion, extremely diminished breath sounds on the right side, left side is clear. Cardiac Exam: Distant S1 and S2, no S3 gallop, no murmur.] Abdomen: [Obese, Soft, nontender, no megaly, no rebound, no guarding, normal bowel sounds.] Extremities: [No clubbing, 2+ bipedal edema, no cyanosis.] Chronic venous stasis changes. Neurological Exam: [No focal neurologic deficit.] Musculoskeletal: Continues to have difficulty in the range of motion of the right hip, pain with any movement of the hip. Otherwise unremarkable. Skin: Chronic venous stasis noted in the lower extremities and 2+ bipedal edema noted. Psychiatric: Normal mental status exam, normal affect, no mood changes. - Labs CBC & Chem 7: 08/31/17 04:20 09/04/17 05:57 Labs: Abnormal Lab Results - Last 24 Hours (Table) 09/03/17 09/03/17 09/03/17 Range/Units 11:42 16:49 21:11 BUN (9-20) mg/dL Creatinine (0.66-1.25) mg/dL Glucose (74-99) mg/dL POC Glucose (mg/dL) 167 H 206 H 155 H (75-99) mg/dL Urine Protein (Negative) Urine Blood (Negative) Ur Leukocyte Esterase (Negative) Urine WBC (0-5) /hpf Urine Yeast (Budding) (None) /hpf 09/04/17 09/04/17 09/04/17 Range/Units 02:00 05:57 05:57 BUN 39 H (9-20) mg/dL Creatinine 1.83 H (0.66-1.25) mg/dL Glucose 114 H (74-99) mg/dL POC Glucose (mg/dL) 132 H (75-99) mg/dL Urine Protein 1+ H (Negative) Urine Blood Small H (Negative) Ur Leukocyte Esterase Small H (Negative) Urine WBC 36 H (0-5) /hpf Urine Yeast (Budding) Few H (None) /hpf Microbiology - Last 24 Hours (Table) 09/01/17 14:46 Gram Stain - Preliminary Bronchoalviolar Lavage - Right Bronchial Washings Culture - Preliminary Gram Positive Bacilli Isolated Assessment and Plan Plan: 1 recurrent opacification/atelectasis of the right upper lobe. Repeat chest x- ray on Monday. Aggressive pulmonary toileting. Awaiting final results of the bronchioloalveolar lavage was collected on Monday, essentially 2 days ago. Still on 6 L about 2 by nasal cannula. 2 history of non-small cell lung cancer with a previous right lower lobe/right middle lobe resection 3 Pseudomonas and Moraxella cultures from the right lung currently on IV Fortaz. 4 atrial fibrillation 5 diabetes mellitus, type II 6 history of CVA 7 hypertension 8 hyperlipidemia 9 history of falls 10 chronic renal failure Recommendation: Discussed his condition with him and with his and with the admitting physician Dr. Schroeder, and I have recommended repeat bronchoscopy and BAL of the right lung. This will be done today again, and this is scheduled to be done sometime today. Patient remains nothing by mouth for now. Surprisingly the patient does not have any signs of respiratory compromise in spite of complete collapse of the right lung. Continue the meantime antibiotics , continue aggressive pulmonary toileting, and adjust antibiotics accordingly based on the final cultures, patient is being followed by infectious disease on the case. Time with Patient: Less than 30
[2017-09-04 11:33] LABS: Glucose,Whole Blood 123 mg/dL (75-99)
[2017-09-04] MEDS ORDERED: KETAMINE 10 MG/ML 20 ML VIAL ONE (11:46)
[2017-09-04] MEDS ORDERED: PROPOFOL 10 MG/ML 20 ML VIAL IV ONE (11:46)
[2017-09-04] MEDS ORDERED: LIDOCAINE 1% INJ 10MG/ML (20 ML MDV) ONE (11:46)
[2017-09-04] MEDS ORDERED: fentaNYL (PF) 50 MCG/ML 2 ML AMP ONE (11:46)
[2017-09-04] MEDS ORDERED: MIDAZOLAM 2 MG/2 ML VIAL ONE (11:46)
[2017-09-04] MEDS ORDERED: IV FLUID CONTINUATION 1,000 ML IV ONE (11:51)
[2017-09-04] MEDS ORDERED: LIDOCAINE 2% INJ 20 MG/ML INTRATRACH ONE (12:13)
[2017-09-04] MEDS: CITALOPRAM HYDROBROMIDE 20 MG TAB PO SCH (12:43)
[2017-09-04] MEDS: guaiFENesin 600 MG TABLET.ER PO SCH ×2 (12:43→21:33)
[2017-09-04] MEDS: ALLOPURINOL 100 MG TAB PO SCH (12:43)
[2017-09-04] MEDS: MEGESTROL 400 MG/10 ML CUP PO SCH (12:44)
[2017-09-04] MEDS: predniSONE 10 MG TAB PO SCH (12:44)
[2017-09-04] MEDS: LINAGLIPTIN 5 MG TABLET PO SCH (12:44)
--- NOTE | 2017-09-04 12:50 | PCN ---
PROCEDURE NOTE PROCEDURE: Bronchoscopy and bronchoalveolar lavage and suctioning of the mucus plug in the right mainstem bronchus. PREOPERATIVE DIAGNOSIS: Recurrent right upper lobe collapse in a patient with history of previous bilobectomy involving right lower lobe and right middle lobe. POSTOPERATIVE DIAGNOSIS: Recurrent right upper lobe collapse in a patient with history of previous bilobectomy involving right lower lobe and right middle lobe. ANESTHESIA GIVEN: Patient was given IV conscious sedation, please refer to Anesthesia records. DESCRIPTION OF PROCEDURE: Patient was placed in a supine position, O2 was applied via high-flow nasal cannula and via Ventimask applied on the mouth area. After adequate IV conscious sedation, patient was already on pulse oximetry monitoring, his blood pressure was also intermittently monitored, O2 saturation was continuously monitored, and cardiac rhythm was continuously monitored. The patient had a few mL of lidocaine instilled into the right naris. Then the bronchoscope was advanced through the right naris down to the area of the vocal cords. Lidocaine was applied over the vocal cords, and the bronchoscope was advanced further down. As we reached the distal end of the trachea, there was clearly mucus plugs involving completely the right mainstem bronchus, which was all occluded, and some of the mucus plug was extending into the left mainstem bronchus. Multiple attempts were made, and I was able to remove the mucus plug and suction it after many trials of going back in and out because the channel of the bronchoscope kept occluding. Basically, the mucus plug was removed fully in a piecemeal fashion. The procedure well tolerated, I was able to take some pictures at the end of the procedure showing complete re-expansion of the right upper lobe bronchus and the right mainstem bronchus. Patient had previous right middle lobectomy and right lower lobe lobectomy. I was able to visualize the stump. The left side was also cleaned, and suctioned until all the mucus plugs were completely removed. Procedure was well tolerated and no evidence of any immediate complications. MMODL / IJN: [id number] /
[2017-09-04 16:43] LABS: Glucose,Whole Blood 208 mg/dL (75-99)
--- NOTE | 2017-09-04 18:43 | P.PN ---
Subjective Progress Note Date: 09/04/17 Principal diagnosis: Fall with left hip pain 67-year-old male who is well-known to the infectious disease service with as many hospitalizations as well as his hidradenitis. He's had a couple hospitalizations in the last several months that included atrial fibrillation with nonsustained V. tach. He has underlying cardiac murmur. He's had vertigo and acute renal failure. He's had some time at the extended care facility in the past year but is now home Doing relatively well under the care of his . He was hospitalized earlier this year with a bout of congestive heart failure and is in relatively well since that time. The. The patient was bathing and suffered a fall and now presents with severe right sided hip pain. He's been evaluated by orthopedics. The hidradenitis is now being treated with Humira injections at home. This is on Fridays. This has been occurring for the last couple of months now. There is been decreasing amount of drainage. His skin is becoming less erythematous and inflamed. The amount of drainage is improving The family is pleased that there is showing some improvement given the many year history of lack of improvement. However was still must apply large amounts of dressings on a daily basis to contain his drainage. The patient never became progressively more short of breath. Was transferred to intensive care unit. He's been seen by pulmonary and underwent bronchoscopy for removal of large mucous plugging to the right lung. Patient remains on BiPAP but is more stable at this time. Antimicrobial therapy was initiated with concerns to pneumonia with this pulmonary process. Cultures have revealed Moraxella and pseudomonas aeruginosa He has minimal improved pain today. Pulmonary status again was giving him difficulties, and again had bronchoscopy for the seventh time to remove more mucous plugs. Doing well after the bronchoscopy. However is certainly with weakness overall. Complains that he's been tired. His had significant amount of sputum production. He had a large mucous plug that he was able to express yesterday but the care of his family and a Yonker suction. The patient is starting to show some mild improvement. And there is discussion about possible transfer to select specialty. Family however his discontent with viscous and so far away. They are very close family and they will cause some hardship for them to be of the visit him. We discussed there are other options. Objective - Vital Signs Vital signs: Vital Signs Temp 97.6 F 09/04/17 16:00 Pulse 111 H 09/04/17 16:00 Resp 18 09/04/17 16:00 BP 115/44 09/04/17 16:00 Pulse Ox 96 09/04/17 16:00 Intake & Output 09/03/17 09/04/17 09/04/17 18:59 06:59 18:59 Intake Total 906 Output Total 350 500 Balance -350 -500 906 Weight 141 kg 141 kg Intake: IV 470 Sodium Chloride 0.9% 1, 120 000 ml @ 20 mls/hr IV . Q24H [facility] Rx#:[id number] cefTAZidime 2 gm In 200 Sodium Chloride 0.9% 100 ml @ 100 mls/hr IVPB Q8HR [facility] Rx#:[id number] Oral 436 Output: Urine 350 500 Other: Voiding Method Urinal # Voids 500 # Bowel Movements 1 - Exam Pleasant 67-year-old gentleman who suffers from obesity who was miserable at this time. BiPAP though is being tolerated. Hip pain is better treated. HEENT: Anicteric conjunctiva are pink and moist nasal mucosa grossly intact without significant lesions, there is no thrush. Neck: The neck is supple without significant lymphadenopathy or thyromegaly. Lungs: There is symmetrical air entry with evidence of crackles at the the right base Some expiratory wheezes are heard. Voice is weak Heart: Irregular with an audible S1 and S2 no S3 soft S4 There is no significant murmur click or rub, PMI was nondisplaced. Abdomen: Obese, Positive bowel sounds soft and nontender without palpable masses or organomegaly. There was no guarding or rebound. Extremities: The upper extremities have excellent pulses they are symmetric, no significant petechiae or telangiectasia. No splinter hemorrhages were noted. The left lower extremity is without significant tenderness at this time. Of note he is able to move it himself with only minimal discomfort. There is at the chronic drainage without change from last evaluation. He has extensive areas of drainage on the buttocks bilaterally and inner thighs. Neuro: Very sleepy after his procedure There are no acute new gross focal sensory motor deficits. - Labs CBC & Chem 7: 08/31/17 04:20 09/04/17 05:57 Labs: Abnormal Lab Results - Last 24 Hours (Table) 09/03/17 09/04/17 09/04/17 Range/Units 21:11 02:00 05:57 BUN 39 H (9-20) mg/dL Creatinine 1.83 H (0.66-1.25) mg/dL Glucose 114 H (74-99) mg/dL POC Glucose (mg/dL) 155 H (75-99) mg/dL Urine Protein 1+ H (Negative) Urine Blood Small H (Negative) Ur Leukocyte Esterase Small H (Negative) Urine WBC 36 H (0-5) /hpf Urine Yeast (Budding) Few H (None) /hpf 09/04/17 09/04/17 09/04/17 Range/Units 05:57 11:31 16:42 BUN (9-20) mg/dL Creatinine (0.66-1.25) mg/dL Glucose (74-99) mg/dL POC Glucose (mg/dL) 132 H 123 H 208 H (75-99) mg/dL Urine Protein (Negative) Urine Blood (Negative) Ur Leukocyte Esterase (Negative) Urine WBC (0-5) /hpf Urine Yeast (Budding) (None) /hpf Microbiology - Last 24 Hours (Table) 09/04/17 08:20 Urine Culture - Preliminary Urine,Clean Catch 09/01/17 14:46 Gram Stain - Final Bronchoalviolar Lavage - Right Bronchial Washings Culture - Final Corynebacterium striatum 08/25/17 11:00 Fungal Culture - Preliminary Bronchial Washings - Right Laboratory Results WBC 17.7 k/uL (3.8-10.6) H 08/31/17 04:20 RBC 3.74 m/uL (4.30-5.90) L 08/31/17 04:20 Hgb 9.9 gm/dL (13.0-17.5) L 08/31/17 04:20 Hct 33.5 % (39.0-53.0) L 08/31/17 04:20 MCV 89.7 fL (80.0-100.0) 08/31/17 04:20 MCH 26.5 pg (25.0-35.0) 08/31/17 04:20 MCHC 29.6 g/dL (31.0-37.0) L 08/31/17 04:20 RDW 17.3 % (11.5-15.5) H 08/31/17 04:20 Plt Count 479 k/uL (150-450) H 08/31/17 04:20 Neutrophils % 80 % 08/31/17 04:20 Lymphocytes % 10 % 08/31/17 04:20 Monocytes % 5 % 08/31/17 04:20 Eosinophils % 2 % 08/31/17 04:20 Basophils % 1 % 08/31/17 04:20 Neutrophils # 14.2 k/uL (1.3-7.7) H 08/31/17 04:20 Lymphocytes # 1.7 k/uL (1.0-4.8) 08/31/17 04:20 Monocytes # 1.0 k/uL (0-1.0) 08/31/17 04:20 Eosinophils # 0.4 k/uL (0-0.7) 08/31/17 04:20 Basophils # 0.1 k/uL (0-0.2) 08/31/17 04:20 Hypochromasia Marked 08/31/17 04:20 Anisocytosis Slight 08/31/17 04:20 Sample Site lbrac 08/16/17 08:01 ABG pH 7.46 (7.35-7.45) H 08/16/17 08:01 ABG pCO2 46 mmHg (35-45) H 08/16/17 08:01 ABG pO2 47 mmHg (83-108) L 08/16/17 08:01 ABG HCO3 32 mmol/L (21-25) H 08/16/17 08:01 ABG Total CO2 34 mmol/L (19-24) H 08/16/17 08:01 ABG O2 Saturation 85.0 % (94-97) L 08/16/17 08:01 ABG Base Excess 8.0 mmol/L 08/16/17 08:01 FiO2 60 % 08/16/17 08:01 Sodium 138 mmol/L (137-145) 09/04/17 05:57 Potassium 4.4 mmol/L (3.5-5.1) 09/04/17 05:57 Chloride 100 mmol/L (98-107) 09/04/17 05:57 Carbon Dioxide 29 mmol/L (22-30) 09/04/17 05:57 Anion Gap 9 mmol/L 09/04/17 05:57 BUN 39 mg/dL (9-20) H 09/04/17 05:57 Creatinine 1.83 mg/dL (0.66-1.25) H 09/04/17 05:57 Est GFR (MDRD) Af Amer 45 (>60 ml/min/1.73 sqM) 09/04/17 05:57 Est GFR (MDRD) Non-Af 37 (>60 ml/min/1.73 sqM) 09/04/17 05:57 Glucose 114 mg/dL (74-99) H 09/04/17 05:57 POC Glucose (mg/dL) 208 mg/dL (75-99) H 09/04/17 16:42 POC Glu Lens Coater ID Autumn Argueta 09/04/17 16:[address] Glu mg/dL 143 mg/dL 08/16/17 07:03 Hemoglobin A1c 6.6 % (4.2-6.1) H 08/16/17 07:03 Calcium 8.6 mg/dL (8.4-10.2) 09/04/17 05:57 Phosphorus 5.4 mg/dL (2.5-4.5) H 08/31/17 04:23 Magnesium 1.8 mg/dL (1.6-2.3) 09/04/17 05:57 Iron 29 ug/dL (65-175) L 08/18/17 04:20 TIBC 171 ug/dL (228-460) L 08/18/17 04:20 Iron Saturation 16.96 (15.00-50.00) 08/18/17 04:20 Ferritin 533.4 ng/mL (22.0-322.0) H 08/18/17 04:20 Total Bilirubin 0.2 mg/dL (0.2-1.3) 08/31/17 04:23 AST 12 U/L (17-59) L 08/31/17 04:23 ALT 30 U/L (21-72) 08/31/17 04:23 Alkaline Phosphatase 104 U/L (38-126) 08/31/17 04:23 Total Protein 7.0 g/dL (6.3-8.2) 08/31/17 04:23 Albumin 2.7 g/dL (3.5-5.0) L 08/31/17 04:23 Cortisol 9 ug/dL 08/17/17 04:38 Urine Color Yellow 09/04/17 02:00 Urine Appearance Cloudy (Clear) 09/04/17 02:00 Urine pH 5.5 (5.0-8.0) 09/04/17 02:00 Ur Specific [place] 1.014 (1.001-1.035) 09/04/17 02:00 Urine Protein 1+ (Negative) H 09/04/17 02:00 Urine Glucose (UA) Negative (Negative) 09/04/17 02:00 Urine Ketones Negative (Negative) 09/04/17 02:00 Urine Blood Small (Negative) H 09/04/17 02:00 Urine Nitrite Negative (Negative) 09/04/17 02:00 Urine Bilirubin Negative (Negative) 09/04/17 02:00 Urine Urobilinogen <2.0 mg/dL (<2.0) 09/04/17 02:00 Ur Leukocyte Esterase Small (Negative) H 09/04/17 02:00 Urine RBC 2 /hpf (0-5) 09/04/17 02:00 Urine WBC 36 /hpf (0-5) H 09/04/17 02:00 Cellular Casts 1 /lpf (0) 09/04/17 02:00 Hyaline Casts 3 /lpf (0-2) H 08/14/17 23:45 Granular Casts 175 /lpf (0) 09/04/17 02:00 Urine Mucus Rare /hpf (None) H 08/14/17 23:45 Urine Yeast (Budding) Few /hpf (None) H 09/04/17 02:00 Fluid Source Bronchial Wash 08/25/17 11:00 Fluid Color Red 08/25/17 11:00 Fluid Appearance Bloody 08/25/17 11:00 Fluid RBC 95571 /uL 08/25/17 11:00 Fluid Nucleated Cells 6000 /uL 08/25/17 11:00 Fluid Polynuclear WBCs 99 % 08/25/17 11:00 Fluid Mononuclear WBCs 1 % 08/25/17 11:00 Virus Source See Below 08/25/17 11:00 Viral Test See Below 08/25/17 11:00 Virus Analysis Interp See Below 08/25/17 11:00 Microbiology 09/04/17 08:20 Urine,Clean Catch Urine Culture - Preliminary 09/01/17 14:46 Bronchoalviolar Lavage - Right Gram Stain - Final 09/01/17 14:46 Bronchoalviolar Lavage - Right Bronchial Washings Culture - Final Corynebacterium striatum 08/25/17 11:00 Bronchial Washings - Right Fungal Culture - Preliminary 08/25/17 11:00 Bronchial Washings - Right Gram Stain - Final 08/25/17 11:00 Bronchial Washings - Right Bronchial Washings Culture - Final Corynebacterium striatum 08/23/17 18:27 Stool Stool Culture - Final 08/25/17 11:00 Bronchial Washings - Right Acid Fast Bacilli Smear - Final 08/25/17 11:00 Bronchial Washings - Right Acid Fast Bacilli Culture - Preliminary Assessment and Plan (1) Fall Status: Acute (2) Acute right hip pain Status: Acute (3) Rib pain on left side Status: Acute (4) Hidradenitis suppurativa Narrative/Plan: 67-year-old male has multiple medical troubles including his history of squamous cell lung cancer fifth being monitored by oncology. He is followed in the infectious disease office for the treatment of his hidradenitis which is being treated currently with Humira. There has been some improvement of his significant disease state but not resolution. The last office visit the and I agreed that we would continue treatment at least until the next quarter. He tolerated this very well. He has had no worsening of his anemia or renal failure . While in hospital his Humira is on hold. Continues to have significant pain to the right hip because of the fall. Orthopedics is following. Orthopedics apparently does not believe that there is a fracture and just has a hyperextension injury. And they will follow as needed. Underwent another bronchoscopy today for his recurrent mucus plugging For antimicrobial therapy with the isolation of the Moraxella and Pseudomonas, ceftazidime was initiated at 2 g IV piggyback every 8 hours He is much more comfortable today from the right hip pain. As has noted dressings are not needed just have him on a drainage had and allow the drainage from his large draining sinus tracts to be absorbed into the pads. He's had his sixth bronchoscopy and is doing well postop. He is doing well with current antimicrobial therapy, pulmonary toileting and positioning. We'll plan at least 10-14 days of ceftaz and after his last bronch and the PICC line has been placed Patient's Humira is on hold and this will be discussed and outpatient visits if this is be prudent for further use at this time with the biggest concerns will be his overall status. Requiring frequent bronchoscopies is problematic. The pulmonary critical care team has discussed the possibility of a transfer to select specialty. He appears to be too complex for a standard extended care facility. The family has noted is somewhat discontent with this because of such a far site. It had difficulty visiting him. We discussed other options doing this at this time. He has now been hospitalized for 21 days with very little improvement of his status. He hasn't been underlying lung disease and is of a history of lung carcinoma from 5 years ago status post resection. He appears to have ongoing worsening of his status and is having difficulty recovering from the current bout of pneumonia. It is related to family that the last 3 cultures have all failed to show the Pseudomonas. It does appear that the infection itself has done better. However continues to have ongoing great difficulties with his pulmonary status. If they do not believe that is possible for him to go to select specialty, and they do not believe he is going to improve any further then there will be option for palliative care and hospice. At this time would plan completion of his course of intravenous antibiotic therapy over the next 10 days. Status: Acute
[2017-09-04 20:49] LABS: Glucose,Whole Blood 206 mg/dL (75-99)
[2017-09-04] MEDS: MULTIVITAMINS, THERA 1 EACH TAB PO SCH (21:33)
[2017-09-04] MEDS: SODIUM CHLORIDE 0.9% 1,000 ML IV SCH (21:36)
[2017-09-05] MEDS: oxyCODONE-APAP 10-325MG 1 EACH TAB PO PRN ×2 (05:16→12:36)
[2017-09-05 06:07] LABS: Glucose,Whole Blood 134 mg/dL (75-99)
[2017-09-05] MEDS: PANTOPRAZOLE 40 MG TABLET PO SCH (06:14)
[2017-09-05] MEDS: CALCIUM CARB-VIT D 500MG-200UN 1 EACH TAB PO SCH ×2 (06:14→17:16)
[2017-09-05] MEDS: INSULIN LISPRO (humaLOG) 300 UNIT/3 ML VIAL SQ SCH ×4 (06:14→20:42)
[2017-09-05 06:53] LABS: Anisocytosis Slight; Basophils # (A) 0.1 k/uL (0-0.2); Basophils % (A) 1 %; CH 24.9; CHCM 27.8; Eosinophils # (A) 0.4 k/uL (0-0.7); Eosinophils % (A) 3 %; HCT 32.2 % (39.0-53.0); HDW 2.43; HGB 9.2 gm/dL (13.0-17.5); Hypochromasia Marked; Luc # (Auto) 0.27; Luc % (Auto) 2; Lymphocytes # (A) 1.5 k/uL (1.0-4.8); Lymphocytes % (A) 11 %; MCH 25.6 pg (25.0-35.0); MCHC 28.5 g/dL (31.0-37.0); MCV 89.6 fL (80.0-100.0); Mean Platelet Volume 6.8; Monocytes # (A) 0.8 k/uL (0-1.0); Monocytes % (A) 6 %; Neutrophils # (A) 10.6 k/uL (1.3-7.7); Neutrophils % (A) 78 %; RBC 3.59 m/uL (4.30-5.90); RDW 16.6 % (11.5-15.5); WBC 13.6 k/uL (3.8-10.6); WBC (Perox) 13.68
[2017-09-05 07:04] LABS: Calcium 8.6 mg/dL (8.4-10.2); Magnesium 1.6 mg/dL (1.6-2.3); Potassium 4.9 mmol/L (3.5-5.1)
[2017-09-05] MEDS: IPRATROPIUM-ALBUTEROL 3 ML NEB INHALATION SCH ×4 (08:39→21:45)
[2017-09-05] MEDS: SYMBICORT 160-4.5 MCG INHALER INHALATION SCH ×2 (08:39→21:45)
[2017-09-05] MEDS: ALLOPURINOL 100 MG TAB PO SCH (09:11)
[2017-09-05] MEDS: DILTIAZEM CD 180 MG CAP.ER.24H PO SCH (09:12)
[2017-09-05] MEDS: BACITRACIN 500 UNIT/GM OINT 28.4 GM TUBE TOPICAL SCH (09:12)
[2017-09-05] MEDS: CITALOPRAM HYDROBROMIDE 20 MG TAB PO SCH (09:12)
[2017-09-05] MEDS: LIDOCAINE 5% PATCH TOPICAL SCH (09:13)
[2017-09-05] MEDS: guaiFENesin 600 MG TABLET.ER PO SCH ×2 (09:13→20:41)
[2017-09-05] MEDS: METOPROLOL SUCCINATE (ER) 25 MG TAB.ER.24H PO SCH ×2 (09:14→20:41)
[2017-09-05] MEDS: MEGESTROL 400 MG/10 ML CUP PO SCH (09:14)
[2017-09-05] MEDS: LINAGLIPTIN 5 MG TABLET PO SCH (09:14)
[2017-09-05] MEDS: predniSONE 10 MG TAB PO SCH (09:14)
--- NOTE | 2017-09-05 09:50 | P.PN ---
Subjective Patient is seen in follow-up for acute kidney injury on chronic kidney disease. Patient has chronic kidney disease stage III secondary to chronic NSAID use and cisplatin toxicity with baseline creatinine near 1.6-1.8 recently. Renal function was worsening with creatinine up to 1.9 as of September 03. Diuretics were discontinued. Creatinine is now trending down and is 1.74 today. He is currently being treated for pneumonia with IV antibiotics. He's also had mucous plugging and has undergone multiple bronchoscopies this admission. Most recent bronchoscopy was September 04. He admits to good urine output. Appetite is fair. He gets short of breath with even minimal exertion. Vital signs are stable. General: The patient appeared well nourished and normally developed. HEENT: Head exam is unremarkable. Neck is without jugular venous distension. LUNGS: Lungs are clear to auscultation and percussion. Breath sounds decreased. HEART: Rate and Rhythm are regular. First and second heart sounds normal. No murmurs, rubs or gallops. ABDOMEN: Abdominal exam reveals normal bowel sounds. Non-tender and non- distended. No evidence of peritonitis. EXTREMITITES: No edema. Objective - Vital Signs Vital signs: Vital Signs Temp 97.8 F 09/05/17 04:00 Pulse 96 09/05/17 08:54 Resp 21 09/05/17 04:00 BP 134/74 09/05/17 04:00 Pulse Ox 99 09/05/17 04:00 Intake & Output 09/04/17 09/05/17 09/05/17 18:59 06:59 18:59 Intake Total 906 100 717 Output Total 650 Balance 906 -550 717 Weight 141 kg 138.5 kg Intake: IV 470 100 Sodium Chloride 0.9% 1, 120 000 ml @ 20 mls/hr IV . Q24H [facility] Rx#:[id number] cefTAZidime 2 gm In 200 100 Sodium Chloride 0.9% 100 ml @ 100 mls/hr IVPB Q8HR [facility] Rx#:[id number] Oral 436 717 Output: Urine 650 Other: Voiding Method Urinal # Voids 500 # Bowel Movements 1 - Labs CBC & Chem 7: 09/05/17 05:37 09/05/17 05:37 Labs: Abnormal Lab Results - Last 24 Hours (Table) 09/04/17 09/04/17 09/04/17 Range/Units 11:31 16:42 20:48 WBC (3.8-10.6) k/uL RBC (4.30-5.90) m/uL Hgb (13.0-17.5) gm/dL Hct (39.0-53.0) % MCHC (31.0-37.0) g/dL RDW (11.5-15.5) % Neutrophils # (1.3-7.7) k/uL BUN (9-20) mg/dL Creatinine (0.66-1.25) mg/dL Glucose (74-99) mg/dL POC Glucose (mg/dL) 123 H 208 H 206 H (75-99) mg/dL 09/05/17 09/05/17 09/05/17 Range/Units 05:37 05:37 06:06 WBC 13.6 H (3.8-10.6) k/uL RBC 3.59 L (4.30-5.90) m/uL Hgb 9.2 L (13.0-17.5) gm/dL Hct 32.2 L (39.0-53.0) % MCHC 28.5 L (31.0-37.0) g/dL RDW 16.6 H (11.5-15.5) % Neutrophils # 10.6 H (1.3-7.7) k/uL BUN 40 H (9-20) mg/dL Creatinine 1.74 H (0.66-1.25) mg/dL Glucose 114 H (74-99) mg/dL POC Glucose (mg/dL) 134 H (75-99) mg/dL Microbiology - Last 24 Hours (Table) 09/04/17 12:00 Gram Stain - Preliminary Bronchial Washings - Right Bronchial Washings Culture - Preliminary 09/04/17 12:00 Fungal Culture - Preliminary Bronchial Washings - Right 09/04/17 08:20 Urine Culture - Preliminary Urine,Clean Catch 09/01/17 14:46 Gram Stain - Final Bronchoalviolar Lavage - Right Bronchial Washings Culture - Final Corynebacterium striatum 08/25/17 11:00 Fungal Culture - Preliminary Bronchial Washings - Right Assessment and Plan Plan: Assessment: #1. Nonoliguric acute kidney injury secondary to ischemic ATN secondary to hypotension and diuresis. Creatinine peaked at 2.4 for this admission. It was worsening the last few days with creatinine 1.9 as of September 03. Diuretics were discontinued. Creatinine down to 1.74 today. No evidence of retention. No proteinuria on urinalysis but repeat UA shows 1+ proteinuria which can be nonspecific in the setting of acute kidney injury. Granular casts on UA suggestive of ATN. #2. Right-sided pneumonia. Maintained on antibiotics per infectious disease recommendations. #3. Recurrent mucus plugging status post 7 bronchoscopies this admission. #4. Chronic kidney disease stage III secondary to chronic NSAID use as well as cisplatin. Recently creatinine has been near 1.6-1.8. #5. Acute hypoxic respiratory failure status post bronchoscopy with clearing of mucous plugging. #6. Non-small cell lung cancer being followed by oncology. #7. Hypomagnesemia secondary to diuresis. #8. Hypocalcemia secondary to acute kidney injury. Improved. Maintained on Os -Clifton D as well as calcitriol. Plan: Encouraged oral intake. Continue Os-Clifton and Rocaltrol. Avoid nephrotoxic agents and hypotensive episodes. Continue to monitor renal function and urine output. Repeat electrolytes in the morning. Follow-up urine culture. Hold diuretics. Magnesium being replaced. Potential transfer to select specialty as well as tracheostomy has been discussed with the patient and the family by pulmonology.
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
--- NOTE | 2017-09-05 10:20 | XR ---
EXAMINATION TYPE: XR chest 1V portable DATE OF EXAM: 09/05/2017 COMPARISON: Prior chest x-ray 09/04/2017 HISTORY: Abnormal chest x-ray, atelectasis TECHNIQUE: Single frontal view of the chest is obtained. FINDINGS: Complete opacification, volume loss present in the right hemithorax as on prior exam. PICC line is stable. No evident pneumothorax. There are overlying cardiac leads. IMPRESSION: Similar to previous exam. Findings suggest atelectasis and possible associated effusion.
[2017-09-05 11:20] LABS: Glucose,Whole Blood 147 mg/dL (75-99)
[2017-09-05] MEDS: MAGNESIUM SULFATE-D5W PMX 1 GM in DEXTROSE/WATER 1 100ML.BAG IVPB SCH ×2 (12:30→15:23)
--- NOTE | 2017-09-05 12:45 | P.PN ---
Subjective Principal diagnosis: Acute fall and possible right hip fracture, right lung collapse requiring bronchoscopy and BAL 7for mucous plug suctioning from right mainstem bronchus. 67-year-old male patient who came into the intensive care yesterday with a complete right lung collapse. I performed a bronchoscopy and therapeutic airway suctioning and copious amounts of mucous plug was aspirated from the right lung. Postop, the patient a chest x-ray today and the right lung is adequately expanded and the patient has adequate rotation of the right upper lobe. Note that he has a right middle lobe/right lower lobe resection and the stump looked quite healthy during the bronchoscope. Is currently on fleets of oxygen nasal cannula. Previous cultures have showed pseudomonas and Moraxella and the patient is currently on IV Fortaz. No fever. No chills. No night sweats. He is tolerating his breathing treatments. He is tolerating his antibiotics. No signs of septicemia. No aspiration. No other complaints otherwise. He was on BiPAP on and off throughout the night. Aggressive chest PT is being performed. No other significant events over the past 24 hours. On 08/30/2017 the patient is being seen in follow-up. Is doing extremely well. No respiratory difficulties. Chest x-ray shows expansion of the right upper lobe with adequate aeration. Limited cough without any significant hemoptysis. He is able to bring up some sputum. He is using incentive spirometer. Afebrile. Hemodynamically stable. No nausea. No vomiting. Tolerating diet. No other significant events over the past 24 hours. The patient remains on IV Fortaz for now. He is having aggressive chest PT and pulmonary toileting for now. The patient was seen again today 08/31/2017 in follow-up in the intensive care unit. He is currently resting quite comfortably in bed. He is awake and alert in no acute distress. He did utilize BiPAP 10/25 at 40% FiO2 throughout the evening. He is currently on 6 L high flow nasal cannula to maintain O2 saturations in the 90s. He's been hemodynamically stable. Afebrile. Bronchial findings from 08/25/2017 revealed no significant findings. Previously he had pseudomonas aeruginosa from 08/16/2017. He remains on ceftazidime. His chest x-ray continues to show improvement in his right lobe aeration. He continues to receive aggressive chest physiotherapy and pulmonary toileting. He continues to work well of the incentive spirometer and cough and deep breathing exercises. On 09/01/2017 patient's repeat chest x-ray and straight increased density within the right hemothorax and complete opacification with volume loss of the right lung. On evaluation patient is resting in bed, he did wear his BiPAP last night, he states he is slightly more short of breath but denies respiratory distress. He appears quite comfortable estimating in bed, on 6 L per high flow nasal cannula with O2 saturations around 93%. His lung sounds reveal no air entry on the right, clear with a few scattered rales on the left. He has been afebrile, his I-S effort remains poor, is only able to achieve 500 on it today. He has been sitting up in the chair on the daily basis, his bronchial washings from 08/25/2017 were positive for Corynebacterium striatum. Continues on IV ceftazidime, oral steroids and nebulizer treatments around-the- clock. He already ate breakfast today. Will be made nothing by mouth now, and she will be scheduled for repeat bronchoscopy with bronchial alveolar lavage with Dr. Mckeon at 1400 today and the endoscopic suite. Patient is in agreement with the plan. On 09/02/2017 the patient has no specific complaints. He is feeling well. After doing adequate therapeutic airway suctioning and removal of mucous plugs yesterday for a bronchoscopy, the patient's chest x-ray from today showing recurrent opacification of the right upper lobe. Despite that, the patient is not having any major stroke difficulties. No fever. No chills. No sweats. No fever. No chills. I'm still awaiting the repeat cultures that were collected from the right upper lobe to see if there is any antibiotic modifications that we can do to improve this patient's mucous production and recurrent atelectasis of the right upper lobe. He is hemodynamically stable. He is on 5-6 L of oxygen nasal cannula. He is being seen by infectious disease. He is still on IV Fortaz. No other significant events overnight. On 09/03/2017 the patient has no new complaints. Is still low 60s of oxygen by nasal cannula. Right upper lobe remains atelectatic due to mucous plugs. Awaiting final cultures from the lavage of the right upper lobe that was obtained on Monday. Meanwhile, remains on antibiotics and the patient is doing aggressive pulmonary toileting. He is doing deep breathing and coughing and he is using BiPAP overnight. On 09/04/2017, patient has no complaints, however he is still on relatively high O2 flow, 6 L nasal cannula, chest x-ray showed complete collapse of the right lung and whitening gout of the right upper lobe. Patient remains on antibiotics, remains on bronchodilators, he has been on BiPAP intermittently. Patient had difficulty clearing get big mucous plug yesterday, and he almost had respiratory arrest, but somehow he managed to do okay. Today he is asymptomatic, but chest x-ray is quite abnormal, and I had a discussion with him and his and his admitting physician that I plan to repeat bronchoscopy today and clean up the right upper lobe again. Labs were reviewed, chest x-ray was reviewed, cultures were all reviewed, On 09/05/2017, patient is basically about the same, he underwent bronchoscopy yesterday, and I was able to suction all the mucous plugs from the right mainstem bronchus and right upper lobe. However chest x-ray again today is showing collapse of the right upper lobe. So far the patient had 7 bronchoscopies in the last 3 weeks. And obviously he will need another bronchoscopy which I plan to schedule tomorrow. In the meantime remains on bronchodilators, remains on antibiotics, and it is extremely difficult to keep the right mainstem bronchus patent in spite of all these multiple bronchoscopies and in spite of antibiotics addressing the pseudomonas infection that he has. CBC was noted today, basic metabolic profile was noted. Renal profile was also noted, all labs are practically stable and about the same. Clinically the patient seems to be doing well, does not seem to be bothered much with the collapse of the right upper lobe and remains on oxygen at 6 L nasal cannula. Objective - Vital Signs Vital signs: Vital Signs Temp 98.6 F 09/05/17 08:00 Pulse 100 09/05/17 12:36 Resp 18 09/05/17 08:00 BP 134/70 09/05/17 08:00 Pulse Ox 98 09/05/17 08:00 Intake & Output 09/04/17 09/05/17 09/05/17 18:59 06:59 18:59 Intake Total 906 100 717 Output Total 650 Balance 906 -550 717 Weight 141 kg 138.5 kg Intake: IV 470 100 Sodium Chloride 0.9% 1, 120 000 ml @ 20 mls/hr IV . Q24H [facility] Rx#:[id number] [id number] 2 gm In 200 100 Sodium Chloride 0.9% 100 ml @ 100 mls/hr IVPB Q8HR [facility] Rx#:[id number] Oral 436 717 Output: Urine 650 Other: Voiding Method Urinal Urinal # Voids 500 # Bowel Movements 1 - Exam Physical Exam: Revealed a 67-year-old white male, obese, nasal cannula in mild respiratory distress HEENT:[Neck is supple.] [No neck masses.] [No thyromegaly.] [No JVD.] Chest: [Symmetrical chest expansion, extremely diminished breath sounds on the right side, left side is clear. Cardiac Exam: Distant S1 and S2, no S3 gallop, no murmur.] Abdomen: [Obese, Soft, nontender, no megaly, no rebound, no guarding, normal bowel sounds.] Extremities: [No clubbing, trace bipedal edema, no cyanosis.] Chronic venous stasis changes. Neurological Exam: [No focal neurologic deficit.] Musculoskeletal: Continues to have difficulty in the range of motion of the right hip, pain with any movement of the hip. Otherwise unremarkable. Skin: Chronic venous stasis noted in the lower extremities and 2+ bipedal edema noted. Psychiatric: Normal mental status exam, normal affect, no mood changes. - Labs CBC & Chem 7: 09/05/17 05:37 09/05/17 05:37 Labs: Abnormal Lab Results - Last 24 Hours (Table) 09/04/17 09/04/17 09/05/17 Range/Units 16:42 20:48 05:37 WBC (3.8-10.6) k/uL RBC (4.30-5.90) m/uL Hgb (13.0-17.5) gm/dL Hct (39.0-53.0) % MCHC (31.0-37.0) g/dL RDW (11.5-15.5) % Neutrophils # (1.3-7.7) k/uL BUN 40 H (9-20) mg/dL Creatinine 1.74 H (0.66-1.25) mg/dL Glucose 114 H (74-99) mg/dL POC Glucose (mg/dL) 208 H 206 H (75-99) mg/dL 09/05/17 09/05/17 09/05/17 Range/Units 05:37 06:06 11:19 WBC 13.6 H (3.8-10.6) k/uL RBC 3.59 L (4.30-5.90) m/uL Hgb 9.2 L (13.0-17.5) gm/dL Hct 32.2 L (39.0-53.0) % MCHC 28.5 L (31.0-37.0) g/dL RDW 16.6 H (11.5-15.5) % Neutrophils # 10.6 H (1.3-7.7) k/uL BUN (9-20) mg/dL Creatinine (0.66-1.25) mg/dL Glucose (74-99) mg/dL POC Glucose (mg/dL) 134 H 147 H (75-99) mg/dL Microbiology - Last 24 Hours (Table) 09/04/17 08:20 Urine Culture - Final Urine,Clean Catch 09/04/17 12:00 Gram Stain - Preliminary Bronchial Washings - Right Bronchial Washings Culture - Preliminary 09/04/17 12:00 Fungal Culture - Preliminary Bronchial Washings - Right 09/01/17 14:46 Gram Stain - Final Bronchoalviolar Lavage - Right Bronchial Washings Culture - Final Corynebacterium striatum 08/25/17 11:00 Fungal Culture - Preliminary Bronchial Washings - Right Assessment and Plan Plan: 1 recurrent opacification/atelectasis of the right upper lobe. Secondary to mucus plugging involving the right mainstem bronchus and right upper lobe bronchus. Patient had so far a total of 7 bronchoscopies and lavage for suctioning of mucous plugs in the right mainstem bronchus and right upper lobe bronchus. 2 history of non-small cell lung cancer with a previous right lower lobe/right middle lobe resection 3 Pseudomonas and Moraxella cultures from the right lung currently on IV Fortaz. 4 atrial fibrillation 5 diabetes mellitus, type II 6 history of CVA 7 hypertension 8 hyperlipidemia 9 history of falls 10 chronic renal failure Recommendation: Continue present supportive care measures including bronchodilators, antibiotics, Mucomyst, updrafts, and we'll continue to follow on a daily basis, I plan to arrange for bronchoscopy tomorrow and another lavage of the right upper lobe bronchus and extraction of mucous plug from the right mainstem bronchus. I will chest x-ray shows significant improvement in the next 24 hours. Will have a repeat chest x-ray prior to deciding on bronchoscopy tomorrow. Prognosis remains guarded. Time with Patient: Less than 30
[2017-09-05 16:31] LABS: Glucose,Whole Blood 152 mg/dL (75-99)
[2017-09-05 20:38] LABS: Glucose,Whole Blood 173 mg/dL (75-99)
--- NOTE | 2017-09-05 20:38 | P.PN ---
Subjective Progress Note Date: 09/05/17 Principal diagnosis: Fall with left hip pain 67-year-old male who is well-known to the infectious disease service with as many hospitalizations as well as his hidradenitis. He's had a couple hospitalizations in the last several months that included atrial fibrillation with nonsustained V. tach. He has underlying cardiac murmur. He's had vertigo and acute renal failure. He's had some time at the extended care facility in the past year but is now home Doing relatively well under the care of his . He was hospitalized earlier this year with a bout of congestive heart failure and is in relatively well since that time. The. The patient was bathing and suffered a fall and now presents with severe right sided hip pain. He's been evaluated by orthopedics. The hidradenitis is now being treated with Humira injections at home. This is on Fridays. This has been occurring for the last couple of months now. There is been decreasing amount of drainage. His skin is becoming less erythematous and inflamed. The amount of drainage is improving The family is pleased that there is showing some improvement given the many year history of lack of improvement. However was still must apply large amounts of dressings on a daily basis to contain his drainage. The patient never became progressively more short of breath. Was transferred to intensive care unit. He's been seen by pulmonary and underwent bronchoscopy for removal of large mucous plugging to the right lung. Patient remains on BiPAP but is more stable at this time. Antimicrobial therapy was initiated with concerns to pneumonia with this pulmonary process. Cultures have revealed Moraxella and pseudomonas aeruginosa He has minimal improved pain today. Pulmonary status again was giving him difficulties, and again had bronchoscopy for the seventh time to remove more mucous plugs. Doing well after the bronchoscopy. However is certainly with weakness overall. His had significant amount of sputum production. He had a large mucous plug that he was able to express by the care of his family and a Yonker suction. The patient is starting to show some mild improvement. And there is discussion about possible transfer to select specialty. Family however is discontent with this solution and so far away. They are very close family and they will cause some hardship for them to be of the visit him. We discussed there are other options. The patient continues to have sputum production and pulmonary is planning another brochoscopy, Objective - Vital Signs Vital signs: Vital Signs Temp 97.5 F L 09/05/17 16:00 Pulse 108 H 09/05/17 16:31 Resp 18 09/05/17 16:00 BP 125/66 09/05/17 16:00 Pulse Ox 93 L 09/05/17 16:00 Intake & Output 09/05/17 09/05/17 09/06/17 06:59 18:59 06:59 Intake Total 100 2508 Output Total 650 620 Balance -550 1888 Weight 138.5 kg Intake: IV 100 cefTAZidime 2 gm In 100 Sodium Chloride 0.9% 100 ml @ 100 mls/hr IVPB Q8HR [facility] Rx#:[id number] Oral 2508 Output: Urine 650 620 Other: Voiding Method Urinal Urinal # Voids 1 # Bowel Movements 1 - Exam Pleasant 67-year-old gentleman who suffers from obesity who was miserable at this time. BiPAP though is being tolerated. Hip pain is better HEENT: Anicteric conjunctiva are pink and moist nasal mucosa grossly intact without significant lesions, there is no thrush. Neck: The neck is supple without significant lymphadenopathy or thyromegaly. Lungs: There is symmetrical air entry with evidence of crackles at the the right base Some expiratory wheezes are heard. Voice is weak Heart: Irregular with an audible S1 and S2 no S3 soft S4 There is no significant murmur click or rub, PMI was nondisplaced. Abdomen: Obese, Positive bowel sounds soft and nontender without palpable masses or organomegaly. There was no guarding or rebound. Extremities: The upper extremities have excellent pulses they are symmetric, no significant petechiae or telangiectasia. No splinter hemorrhages were noted. The left lower extremity is without significant tenderness at this time. Of note he is able to move it himself with only minimal discomfort. There is at the chronic drainage without change from last evaluation. He has extensive areas of drainage on the buttocks bilaterally and inner thighs. Neuro: awake alert conversational desire a conversation with the physician today. - Labs CBC & Chem 7: 09/05/17 05:37 09/05/17 05:37 Labs: Abnormal Lab Results - Last 24 Hours (Table) 09/04/17 09/05/17 09/05/17 Range/Units 20:48 05:37 05:37 WBC 13.6 H (3.8-10.6) k/uL RBC 3.59 L (4.30-5.90) m/uL Hgb 9.2 L (13.0-17.5) gm/dL Hct 32.2 L (39.0-53.0) % MCHC 28.5 L (31.0-37.0) g/dL RDW 16.6 H (11.5-15.5) % Neutrophils # 10.6 H (1.3-7.7) k/uL BUN 40 H (9-20) mg/dL Creatinine 1.74 H (0.66-1.25) mg/dL Glucose 114 H (74-99) mg/dL POC Glucose (mg/dL) 206 H (75-99) mg/dL 09/05/17 09/05/17 09/05/17 Range/Units 06:06 11:19 16:29 WBC (3.8-10.6) k/uL RBC (4.30-5.90) m/uL Hgb (13.0-17.5) gm/dL Hct (39.0-53.0) % MCHC (31.0-37.0) g/dL RDW (11.5-15.5) % Neutrophils # (1.3-7.7) k/uL BUN (9-20) mg/dL Creatinine (0.66-1.25) mg/dL Glucose (74-99) mg/dL POC Glucose (mg/dL) 134 H 147 H 152 H (75-99) mg/dL Microbiology - Last 24 Hours (Table) 09/04/17 08:20 Urine Culture - Final Urine,Clean Catch 09/04/17 12:00 Gram Stain - Preliminary Bronchial Washings - Right Bronchial Washings Culture - Preliminary 09/04/17 12:00 Fungal Culture - Preliminary Bronchial Washings - Right Laboratory Results WBC 13.6 k/uL (3.8-10.6) H 09/05/17 05:37 RBC 3.59 m/uL (4.30-5.90) L 09/05/17 05:37 Hgb 9.2 gm/dL (13.0-17.5) L 09/05/17 05:37 Hct 32.2 % (39.0-53.0) L 09/05/17 05:37 MCV 89.6 fL (80.0-100.0) 09/05/17 05:37 MCH 25.6 pg (25.0-35.0) 09/05/17 05:37 MCHC 28.5 g/dL (31.0-37.0) L 09/05/17 05:37 RDW 16.6 % (11.5-15.5) H 09/05/17 05:37 Plt Count 442 k/uL (150-450) 09/05/17 05:37 Neutrophils % 78 % 09/05/17 05:37 Lymphocytes % 11 % 09/05/17 05:37 Monocytes % 6 % 09/05/17 05:37 Eosinophils % 3 % 09/05/17 05:37 Basophils % 1 % 09/05/17 05:37 Neutrophils # 10.6 k/uL (1.3-7.7) H 09/05/17 05:37 Lymphocytes # 1.5 k/uL (1.0-4.8) 09/05/17 05:37 Monocytes # 0.8 k/uL (0-1.0) 09/05/17 05:37 Eosinophils # 0.4 k/uL (0-0.7) 09/05/17 05:37 Basophils # 0.1 k/uL (0-0.2) 09/05/17 05:37 Hypochromasia Marked 09/05/17 05:37 Anisocytosis Slight 09/05/17 05:37 Sample Site lbra 08/16/17 08:01 ABG pH 7.46 (7.35-7.45) H 08/16/17 08:01 ABG pCO2 46 mmHg (35-45) H 08/16/17 08:01 ABG pO2 47 mmHg (83-108) L 08/16/17 08:01 ABG HCO3 32 mmol/L (21-25) H 08/16/17 08:01 ABG Total CO2 34 mmol/L (19-24) H 08/16/17 08:01 ABG O2 Saturation 85.0 % (94-97) L 08/16/17 08:01 ABG Base Excess 8.0 mmol/L 08/16/17 08:01 FiO2 60 % 08/16/17 08:01 Sodium 139 mmol/L (137-145) 09/05/17 05:37 Potassium 4.9 mmol/L (3.5-5.1) 09/05/17 05:37 Chloride 101 mmol/L (98-107) 09/05/17 05:37 Carbon Dioxide 29 mmol/L (22-30) 09/05/17 05:37 Anion Gap 9 mmol/L 09/05/17 05:37 BUN 40 mg/dL (9-20) H 09/05/17 05:37 Creatinine 1.74 mg/dL (0.66-1.25) H 09/05/17 05:37 Est GFR (MDRD) Af Amer 47 (>60 ml/min/1.73 sqM) 09/05/17 05:37 Est GFR (MDRD) Non-Af 39 (>60 ml/min/1.73 sqM) 09/05/17 05:37 Glucose 114 mg/dL (74-99) H 09/05/17 05:37 POC Glucose (mg/dL) 152 mg/dL (75-99) H 09/05/17 16:29 POC Glu [employer] AYESHA Devika Lauren 09/05/17 16:[address] Glu mg/dL 143 mg/dL 08/16/17 07:03 Hemoglobin A1c 6.6 % (4.2-6.1) H 08/16/17 07:03 Calcium 8.6 mg/dL (8.4-10.2) 09/05/17 05:37 Phosphorus 5.4 mg/dL (2.5-4.5) H 08/31/17 04:23 Magnesium 1.6 mg/dL (1.6-2.3) 09/05/17 05:37 Iron 29 ug/dL (65-175) L 08/18/17 04:20 TIBC 171 ug/dL (228-460) L 08/18/17 04:20 Iron Saturation 16.96 (15.00-50.00) 08/18/17 04:20 Ferritin 533.4 ng/mL (22.0-322.0) H 08/18/17 04:20 Total Bilirubin 0.2 mg/dL (0.2-1.3) 08/31/17 04:23 AST 12 U/L (17-59) L 08/31/17 04:23 ALT 30 U/L (21-72) 08/31/17 04:23 Alkaline Phosphatase 104 U/L (38-126) 08/31/17 04:23 Total Protein 7.0 g/dL (6.3-8.2) 08/31/17 04:23 Albumin 2.7 g/dL (3.5-5.0) L 08/31/17 04:23 Cortisol 9 ug/dL 08/17/17 04:38 Urine Color Yellow 09/04/17 02:00 Urine Appearance Cloudy (Clear) 09/04/17 02:00 Urine pH 5.5 (5.0-8.0) 09/04/17 02:00 Ur Specific [place] 1.014 (1.001-1.035) 09/04/17 02:00 Urine Protein 1+ (Negative) H 09/04/17 02:00 Urine Glucose (UA) Negative (Negative) 09/04/17 02:00 Urine Ketones Negative (Negative) 09/04/17 02:00 Urine Blood Small (Negative) H 09/04/17 02:00 Urine Nitrite Negative (Negative) 09/04/17 02:00 Urine Bilirubin Negative (Negative) 09/04/17 02:00 Urine Urobilinogen <2.0 mg/dL (<2.0) 09/04/17 02:00 Ur Leukocyte Esterase Small (Negative) H 09/04/17 02:00 Urine RBC 2 /hpf (0-5) 09/04/17 02:00 Urine WBC 36 /hpf (0-5) H 09/04/17 02:00 Cellular Casts 1 /lpf (0) 09/04/17 02:00 Hyaline Casts 3 /lpf (0-2) H 08/14/17 23:45 Granular Casts 175 /lpf (0) 09/04/17 02:00 Urine Mucus Rare /hpf (None) H 08/14/17 23:45 Urine Yeast (Budding) Few /hpf (None) H 09/04/17 02:00 Fluid Source Bronchial Wash 08/25/17 11:00 Fluid Color Red 08/25/17 11:00 Fluid Appearance Bloody 08/25/17 11:00 Fluid RBC 36389 /uL 08/25/17 11:00 Fluid Nucleated Cells 6000 /uL 08/25/17 11:00 Fluid Polynuclear WBCs 99 % 08/25/17 11:00 Fluid Mononuclear WBCs 1 % 08/25/17 11:00 Virus Source See Below 08/25/17 11:00 Viral Test See Below 08/25/17 11:00 Virus Analysis Interp See Below 08/25/17 11:00 Microbiology 09/04/17 08:20 Urine,Clean Catch Urine Culture - Final 09/04/17 12:00 Bronchial Washings - Right Gram Stain - Preliminary 09/04/17 12:00 Bronchial Washings - Right Bronchial Washings Culture - Preliminary 09/04/17 12:00 Bronchial Washings - Right Fungal Culture - Preliminary 09/01/17 14:46 Bronchoalviolar Lavage - Right Gram Stain - Final 09/01/17 14:46 Bronchoalviolar Lavage - Right Bronchial Washings Culture - Final Corynebacterium striatum 08/25/17 11:00 Bronchial Washings - Right Fungal Culture - Preliminary 08/25/17 11:00 Bronchial Washings - Right Gram Stain - Final 08/25/17 11:00 Bronchial Washings - Right Bronchial Washings Culture - Final Corynebacterium striatum 08/23/17 18:27 Stool Stool Culture - Final 08/25/17 11:00 Bronchial Washings - Right Acid Fast Bacilli Smear - Final 08/25/17 11:00 Bronchial Washings - Right Acid Fast Bacilli Culture - Preliminary - Imaging and Cardiology Chest x-ray: report reviewed (Continues with right-sided volume loss) Assessment and Plan (1) Fall Current Visit: Yes Status: Acute Priority: High Code(s): W19.XXXA - UNSPECIFIED FALL, INITIAL ENCOUNTER SNOMED Code(s): 6774710 (2) Acute right hip pain Current Visit: Yes Status: Acute Code(s): M25.551 - PAIN IN RIGHT HIP SNOMED Code(s): 43415339 (3) Rib pain on left side Current Visit: Yes Status: Acute Code(s): R07.81 - PLEURODYNIA SNOMED Code (s): 033753816 (4) Hidradenitis suppurativa Narrative/Plan: 67-year-old male has multiple medical troubles including his history of squamous cell lung cancer fifth being monitored by oncology. He is followed in the infectious disease office for the treatment of his hidradenitis which is being treated currently with Humira. There has been some improvement of his significant disease state but not resolution. The last office visit the and I agreed that we would continue treatment at least until the next quarter. He tolerated this very well. He has had no worsening of his anemia or renal failure . While in hospital his Humira is on hold. Continues to have significant pain to the right hip because of the fall. Orthopedics is following. Orthopedics apparently does not believe that there is a fracture and just has a hyperextension injury. And they will follow as needed. Underwent another bronchoscopy today for his recurrent mucus plugging For antimicrobial therapy with the isolation of the Moraxella and Pseudomonas, ceftazidime was initiated at 2 g IV piggyback every 8 hours He is much more comfortable today from the right hip pain. As has noted dressings are not needed just have him on a drainage had and allow the drainage from his large draining sinus tracts to be absorbed into the pads. He's had his seventh bronchoscopy and is doing well postop. He is doing well with current antimicrobial therapy, pulmonary toileting and positioning. We'll plan at least 10-14 days of ceftaz and after his last bronch and the PICC line has been placed Patient's Humira is on hold and this will be discussed and outpatient visits if this is be prudent for further use at this time with the biggest concerns will be his overall status. Requiring frequent bronchoscopies is problematic. The pulmonary critical care team has discussed the possibility of a transfer to select specialty. He appears to be too complex for a standard extended care facility. The family has noted is somewhat discontent with this because of such a far site. They would have difficulty visiting him. We discussed other options doing this at this time. He has now been hospitalized for 21 days with very little improvement of his status. He has underlying lung disease and is a history of lung carcinoma from 5 years ago status post resection. He appears to have ongoing worsening of his status and is having difficulty recovering from the current bout of pneumonia. It is related to family that the last 3 cultures have all failed to show the Pseudomonas. It does appear that the infection itself has done better. However continues to have ongoing great difficulties with his pulmonary status. If they do not believe that is possible for him to go to select specialty, and they do not believe he is going to improve any further then there will be option for palliative care and hospice. At this time would plan completion of his course of intravenous antibiotic therapy over the next 10 days. Conversation occurred with the patient today. He is contemplating his overall status. I tried to reassure him that this point in time if he works very hard that he does have the possibility of recovery. But he would need to be highly motivated for this to occur. He does seem to think this is a good option. In is he improves seems to be agreeable to select specialty. This is also discussed with the . She relates youngest daughter will be her most difficult family member Current Visit: Yes Status: Acute Code(s): L73.2 - HIDRADENITIS SUPPURATIVA SNOMED Code(s): 04555774
[2017-09-05] MEDS: MULTIVITAMINS, THERA 1 EACH TAB PO SCH (20:42)
[2017-09-06] MEDS: SODIUM CHLORIDE 0.9% 1,000 ML IV SCH ×2 (01:40→23:20)
[2017-09-06 05:55] LABS: Glucose,Whole Blood 121 mg/dL (75-99)
[2017-09-06 06:21] LABS: Anisocytosis Slight; Basophils # (A) 0.1 k/uL (0-0.2); Basophils % (A) 1 %; CH 25.1; CHCM 28.2; Eosinophils # (A) 0.4 k/uL (0-0.7); Eosinophils % (A) 3 %; HCT 30.8 % (39.0-53.0); HGB 8.7 gm/dL (13.0-17.5); Hypochromasia Marked; Luc # (Auto) 0.39; Luc % (Auto) 2; Lymphocytes # (A) 1.8 k/uL (1.0-4.8); Lymphocytes % (A) 11 %; MCH 25.3 pg (25.0-35.0); MCHC 28.4 g/dL (31.0-37.0); MCV 89.2 fL (80.0-100.0); Mean Platelet Volume 6.7; Monocytes # (A) 0.9 k/uL (0-1.0); Monocytes % (A) 5 %; Neutrophils # (A) 13.3 k/uL (1.3-7.7); Neutrophils % (A) 79 %; RBC 3.46 m/uL (4.30-5.90); RDW 16.7 % (11.5-15.5); WBC 16.9 k/uL (3.8-10.6); WBC (Perox) 16.45
[2017-09-06] MEDS: INSULIN LISPRO (humaLOG) 300 UNIT/3 ML VIAL SQ SCH ×4 (06:21→21:32)
[2017-09-06] MEDS: CALCIUM CARB-VIT D 500MG-200UN 1 EACH TAB PO SCH ×2 (06:26→17:09)
[2017-09-06] MEDS: PANTOPRAZOLE 40 MG TABLET PO SCH (06:26)
[2017-09-06 06:34] LABS: Calcium 8.5 mg/dL (8.4-10.2); Magnesium 1.9 mg/dL (1.6-2.3); Potassium 4.7 mmol/L (3.5-5.1)
--- NOTE | 2017-09-06 08:27 | XR ---
EXAMINATION TYPE: XR chest 1V portable DATE OF EXAM: 09/06/2017 COMPARISON: 09/05/2017 HISTORY: Shortness of breath TECHNIQUE: Single frontal view of the chest is obtained. FINDINGS: There is complete opacification of the right hemithorax, unchanged from the prior. Left PI CC is unchanged in position. Tracheal deviation is towards the right indicating right-sided hemithora x volume loss. Cardiomediastinal silhouette is obscured but appears stable from the prior. IMPRESSION: Complete opacification of right hemithorax and tracheal deviation towards the right sugg ests right sided atelectasis and/or pleural effusion. Endobronchial obstruction should also be consid ered.
[2017-09-06] MEDS: BACITRACIN 500 UNIT/GM OINT 28.4 GM TUBE TOPICAL SCH (08:46)
[2017-09-06] MEDS: LIDOCAINE 5% PATCH TOPICAL SCH (08:47)
[2017-09-06] MEDS: IPRATROPIUM-ALBUTEROL 3 ML NEB INHALATION SCH ×4 (09:09→19:49)
[2017-09-06] MEDS: SYMBICORT 160-4.5 MCG INHALER INHALATION SCH ×2 (09:09→19:48)
[2017-09-06] MEDS: MORPHINE SULFATE 2 MG/ML SYRINGE IVP PRN ×2 (09:15→23:27)
--- NOTE | 2017-09-06 09:30 | P.PN ---
Subjective Patient is seen in follow-up for acute kidney injury on chronic kidney disease. Patient has chronic kidney disease stage III secondary to chronic NSAID use and cisplatin toxicity with baseline creatinine near 1.6-1.8 recently. Renal function was worsening with creatinine up to 1.9 as of September 03. Diuretics were discontinued. Creatinine is now trending down and is 1.5 today. He is currently being treated for pneumonia with IV antibiotics. He's also had mucous plugging and has undergone multiple bronchoscopies this admission. Most recent bronchoscopy was September 04. He admits to good urine output. Appetite is fair. He gets short of breath with even minimal exertion - chest x-ray this morning is again showing opacification of the right lung any scheduled to undergo another bronchoscopy today. Vital signs are stable. General: The patient appeared well nourished and normally developed. HEENT: Head exam is unremarkable. Neck is without jugular venous distension. LUNGS: Lungs are clear to auscultation and percussion. Breath sounds decreased. HEART: Rate and Rhythm are regular. First and second heart sounds normal. No murmurs, rubs or gallops. ABDOMEN: Abdominal exam reveals normal bowel sounds. Non-tender and non- distended. No evidence of peritonitis. EXTREMITITES: No edema. Objective - Vital Signs Vital signs: Vital Signs Temp 98 F 09/06/17 08:47 Pulse 106 H 09/06/17 09:10 Resp 18 09/06/17 08:47 BP 134/72 09/06/17 08:47 Pulse Ox 92 L 09/06/17 08:47 Intake & Output 09/05/17 09/06/17 09/06/17 18:59 06:59 18:59 Intake Total 2508 40 Output Total 620 350 Balance 1888 -350 40 Weight 138.5 kg Intake: IV 40 Sodium Chloride 0.9% 1, 40 000 ml @ 20 mls/hr IV . Q24H [facility] Rx#:[id number] Oral 2508 Output: Urine 620 350 Other: Voiding Method Urinal Urinal Urinal # Voids 1 # Bowel Movements 1 - Labs CBC & Chem 7: 09/06/17 05:29 09/06/17 05:27 Labs: Abnormal Lab Results - Last 24 Hours (Table) 09/05/17 09/05/17 09/05/17 Range/Units 11:19 16:29 20:37 WBC (3.8-10.6) k/uL RBC (4.30-5.90) m/uL Hgb (13.0-17.5) gm/dL Hct (39.0-53.0) % MCHC (31.0-37.0) g/dL RDW (11.5-15.5) % Neutrophils # (1.3-7.7) k/uL Sodium (137-145) mmol/L BUN (9-20) mg/dL Creatinine (0.66-1.25) mg/dL Glucose (74-99) mg/dL POC Glucose (mg/dL) 147 H 152 H 173 H (75-99) mg/dL 09/06/17 09/06/17 09/06/17 Range/Units 05:27 05:29 05:50 WBC 16.9 H (3.8-10.6) k/uL RBC 3.46 L (4.30-5.90) m/uL Hgb 8.7 L (13.0-17.5) gm/dL Hct 30.8 L (39.0-53.0) % MCHC 28.4 L (31.0-37.0) g/dL RDW 16.7 H (11.5-15.5) % Neutrophils # 13.3 H (1.3-7.7) k/uL Sodium 135 L (137-145) mmol/L BUN 39 H (9-20) mg/dL Creatinine 1.50 H (0.66-1.25) mg/dL Glucose 115 H (74-99) mg/dL POC Glucose (mg/dL) 121 H (75-99) mg/dL Microbiology - Last 24 Hours (Table) 08/25/17 11:00 Acid Fast Bacilli Smear - Final Bronchial Washings - Right Acid Fast Bacilli Culture - Preliminary 09/04/17 08:20 Urine Culture - Final Urine,Clean Catch Assessment and Plan Plan: Assessment: #1. Nonoliguric acute kidney injury secondary to ischemic ATN secondary to hypotension and diuresis. Creatinine peaked at 2.4 for this admission. It was worsening the last few days with creatinine 1.9 as of September 03. Diuretics were discontinued. Creatinine down to 15 today. No evidence of retention. No proteinuria on urinalysis but repeat UA shows 1+ proteinuria which can be nonspecific in the setting of acute kidney injury. Granular casts on UA suggestive of ATN. #2. Right-sided pneumonia. Maintained on antibiotics per infectious disease recommendations. #3. Recurrent mucus plugging status post 7 bronchoscopies this admission. #4. Chronic kidney disease stage III secondary to chronic NSAID use as well as cisplatin. Recently creatinine has been near 1.6-1.8. #5. Acute hypoxic respiratory failure status post bronchoscopy with clearing of mucous plugging. #6. Non-small cell lung cancer being followed by oncology. #7. Hypomagnesemia secondary to diuresis. Improved. #8. Hypocalcemia secondary to acute kidney injury. Improved. Maintained on Os -Clifton D as well as calcitriol. Plan: Encouraged oral intake. Continue Os-Clifton and Rocaltrol. Avoid nephrotoxic agents and hypotensive episodes. Continue to monitor renal function and urine output. Repeat electrolytes in the morning. Follow-up urine culture. Hold diuretics. Potential transfer to select specialty as well as tracheostomy has been discussed with the patient and the family by pulmonology. Scheduled for another bronchoscopy today. Check PTH and vitamin D level.
--- NOTE | 2017-09-06 10:35 | P.PN ---
Subjective Progress Note Date: 09/06/17 Principal diagnosis: Right-sided consolidation with pleural base thickening 67-year-old male patient who came into the intensive care yesterday with a complete right lung collapse. I performed a bronchoscopy and therapeutic airway suctioning and copious amounts of mucous plug was aspirated from the right lung. Postop, the patient a chest x-ray today and the right lung is adequately expanded and the patient has adequate rotation of the right upper lobe. Note that he has a right middle lobe/right lower lobe resection and the stump looked quite healthy during the bronchoscope. Is currently on fleets of oxygen nasal cannula. Previous cultures have showed pseudomonas and Moraxella and the patient is currently on IV Fortaz. No fever. No chills. No night sweats. He is tolerating his breathing treatments. He is tolerating his antibiotics. No signs of septicemia. No aspiration. No other complaints otherwise. He was on BiPAP on and off throughout the night. Aggressive chest PT is being performed. No other significant events over the past 24 hours. On 08/30/2017 the patient is being seen in follow-up. Is doing extremely well. No respiratory difficulties. Chest x-ray shows expansion of the right upper lobe with adequate aeration. Limited cough without any significant hemoptysis. He is able to bring up some sputum. He is using incentive spirometer. Afebrile. Hemodynamically stable. No nausea. No vomiting. Tolerating diet. No other significant events over the past 24 hours. The patient remains on IV Fortaz for now. He is having aggressive chest PT and pulmonary toileting for now. The patient was seen again today 08/31/2017 in follow-up in the intensive care unit. He is currently resting quite comfortably in bed. He is awake and alert in no acute distress. He did utilize BiPAP / at 40% FiO2 throughout the evening. He is currently on 6 L high flow nasal cannula to maintain O2 saturations in the 90s. He's been hemodynamically stable. Afebrile. Bronchial findings from 08/25/2017 revealed no significant findings. Previously he had pseudomonas aeruginosa from 08/16/2017. He remains on ceftazidime. His chest x-ray continues to show improvement in his right lobe aeration. He continues to receive aggressive chest physiotherapy and pulmonary toileting. He continues to work well of the incentive spirometer and cough and deep breathing exercises. On 09/01/2017 patient's repeat chest x-ray and straight increased density within the right hemothorax and complete opacification with volume loss of the right lung. On evaluation patient is resting in bed, he did wear his BiPAP last night, he states he is slightly more short of breath but denies respiratory distress. He appears quite comfortable estimating in bed, on 6 L per high flow nasal cannula with O2 saturations around 93%. His lung sounds reveal no air entry on the right, clear with a few scattered rales on the left. He has been afebrile, his I-S effort remains poor, is only able to achieve 500 on it today. He has been sitting up in the chair on the daily basis, his bronchial washings from 08/25/2017 were positive for Corynebacterium striatum. Continues on IV ceftazidime, oral steroids and nebulizer treatments around-the- clock. He already ate breakfast today. Will be made nothing by mouth now, and she will be scheduled for repeat bronchoscopy with bronchial alveolar lavage with Dr. Mckeon at 1400 today and the endoscopic suite. Patient is in agreement with the plan. On 09/02/2017 the patient has no specific complaints. He is feeling well. After doing adequate therapeutic airway suctioning and removal of mucous plugs yesterday for a bronchoscopy, the patient's chest x-ray from today showing recurrent opacification of the right upper lobe. Despite that, the patient is not having any major stroke difficulties. No fever. No chills. No sweats. No fever. No chills. I'm still awaiting the repeat cultures that were collected from the right upper lobe to see if there is any antibiotic modifications that we can do to improve this patient's mucous production and recurrent atelectasis of the right upper lobe. He is hemodynamically stable. He is on 5-6 L of oxygen nasal cannula. He is being seen by infectious disease. He is still on IV Fortaz. No other significant events overnight. On 09/03/2017 the patient has no new complaints. Is still low 60s of oxygen by nasal cannula. Right upper lobe remains atelectatic due to mucous plugs. Awaiting final cultures from the lavage of the right upper lobe that was obtained on Monday. Meanwhile, remains on antibiotics and the patient is doing aggressive pulmonary toileting. He is doing deep breathing and coughing and he is using BiPAP overnight. On 09/04/2017, patient has no complaints, however he is still on relatively high O2 flow, 6 L nasal cannula, chest x-ray showed complete collapse of the right lung and whitening gout of the right upper lobe. Patient remains on antibiotics, remains on bronchodilators, he has been on BiPAP intermittently. Patient had difficulty clearing get big mucous plug yesterday, and he almost had respiratory arrest, but somehow he managed to do okay. Today he is asymptomatic, but chest x-ray is quite abnormal, and I had a discussion with him and his and his admitting physician that I plan to repeat bronchoscopy today and clean up the right upper lobe again. Labs were reviewed, chest x-ray was reviewed, cultures were all reviewed, On 09/05/2017, patient is basically about the same, he underwent bronchoscopy yesterday, and I was able to suction all the mucous plugs from the right mainstem bronchus and right upper lobe. However chest x-ray again today is showing collapse of the right upper lobe. So far the patient had 7 bronchoscopies in the last 3 weeks. And obviously he will need another bronchoscopy which I plan to schedule tomorrow. In the meantime remains on bronchodilators, remains on antibiotics, and it is extremely difficult to keep the right mainstem bronchus patent in spite of all these multiple bronchoscopies and in spite of antibiotics addressing the pseudomonas infection that he has. CBC was noted today, basic metabolic profile was noted. Renal profile was also noted, all labs are practically stable and about the same. Clinically the patient seems to be doing well, does not seem to be bothered much with the collapse of the right upper lobe and remains on oxygen at 6 L nasal cannula. The patient was seen again today 09/06/2017 in follow-up on the selective care unit. His chest x-ray continues to show near-complete collapse of the right upper lobe. The plan is for repeat bronchoscopy with BAL today. He remains awake and alert in no acute distress. He is receiving chest physiotherapy. He is able to expectorate small amounts of green sputum. Current white count 16.9. Hemoglobin 8.7. Creatinine 1.50. He is afebrile. Hemodynamically stable. Maintaining O2 saturations in the low 90s on 5 L high flow nasal cannula. He continues to utilize BiPAP throughout the evenings. Objective - Vital Signs Vital signs: Vital Signs Temp 98 F 09/06/17 08:47 Pulse 106 H 09/06/17 09:10 Resp 18 09/06/17 08:47 BP 134/72 09/06/17 08:47 Pulse Ox 92 L 09/06/17 08:47 Intake & Output 09/05/17 09/06/17 09/06/17 18:59 06:59 18:59 Intake Total 2508 40 Output Total 620 350 Balance 1888 -350 40 Weight 138.5 kg Intake: IV 40 Sodium Chloride 0.9% 1, 40 000 ml @ 20 mls/hr IV . Q24H [facility] Rx#:[id number] Oral 2508 Output: Urine 620 350 Other: Voiding Method Urinal Urinal Urinal # Voids 1 # Bowel Movements 1 - Exam GENERAL EXAM: Alert, comfortable in no apparent distress. HEAD: Normocephalic. EYES: Normal reaction of pupils, equal size. NOSE: Clear with pink turbinates. THROAT: No erythema or exudates. NECK: No masses, no JVD. CHEST: No chest wall deformity. LUNGS: Equal air entry with bilateral scattered rhonchi crackles in the right posterior base. CVS: S1 and S2 normal with no audible mumurs, regular rhythm. ABDOMEN: No hepatosplenomegaly, normal bowel sounds, no guarding or rigidity. SPINE: No scoliosis or deformity SKIN: No rashes CENTRAL NERVOUS SYSTEM: No focal deficits, tone is normal in all 4 extremities. Extremities: There is trace peripheral edema. No clubbing, no cyanosis. Peripheral pulses are intact. - Labs CBC & Chem 7: 09/06/17 05:29 09/06/17 05:27 Labs: Abnormal Lab Results - Last 24 Hours (Table) 09/05/17 09/05/17 09/05/17 Range/Units 11:19 16:29 20:37 WBC (3.8-10.6) k/uL RBC (4.30-5.90) m/uL Hgb (13.0-17.5) gm/dL Hct (39.0-53.0) % MCHC (31.0-37.0) g/dL RDW (11.5-15.5) % Neutrophils # (1.3-7.7) k/uL Sodium (137-145) mmol/L BUN (9-20) mg/dL Creatinine (0.66-1.25) mg/dL Glucose (74-99) mg/dL POC Glucose (mg/dL) 147 H 152 H 173 H (75-99) mg/dL 09/06/17 09/06/17 09/06/17 Range/Units 05:27 05:29 05:50 WBC 16.9 H (3.8-10.6) k/uL RBC 3.46 L (4.30-5.90) m/uL Hgb 8.7 L (13.0-17.5) gm/dL Hct 30.8 L (39.0-53.0) % MCHC 28.4 L (31.0-37.0) g/dL RDW 16.7 H (11.5-15.5) % Neutrophils # 13.3 H (1.3-7.7) k/uL Sodium 135 L (137-145) mmol/L BUN 39 H (9-20) mg/dL Creatinine 1.50 H (0.66-1.25) mg/dL Glucose 115 H (74-99) mg/dL POC Glucose (mg/dL) 121 H (75-99) mg/dL Microbiology - Last 24 Hours (Table) 08/25/17 11:00 Acid Fast Bacilli Smear - Final Bronchial Washings - Right Acid Fast Bacilli Culture - Preliminary 09/04/17 08:20 Urine Culture - Final Urine,Clean Catch Assessment and Plan Plan: Impression: #1 Acute on chronic systolic congestive heart failure. #2 Atrial fibrillation with varying ventricular response. #3 Acute right lung pneumonia, secondary to pseudomonas aeruginosa. The plan is for 10-14 days of IV ceftaz. PICC line inserted. Status post multiple bronchoscopies in this admission. Chest x-ray shows near complete collapse of the right upper lobe again. Plan is for repeat bronchoscopy today. #4 Acute hypoxic respiratory failure secondary to above. #5 Diabetes mellitus, type II. #6 History of CVA. #7 Hypertension. #8 History of lung, non-small cell carcinoma. History of right lower lobectomy #9 Hyperlipidemia. #10 Renal insufficiency. #11 Ventricular tachycardia. #12 Acute fall status post with right hip pain, negative for fracture. Plan: The patient was seen and evaluated by Dr. Adame. His chest x-ray and labs was reviewed. The plan is for repeat bronchoscopy today. Continue with BiPAP at the bedside. Continue pulmonary toileting. We'll continue with his current medications. He has completed his course of ceftazidime. Most recent cultures do not reveal recurrence of pseudomonas. The patient has had an ongoing and prolonged hospitalization. Transferred to select specialty has been discussed. Palliative care has been discussed as well. The patient and family are having ongoing discussions. We'll continue to follow. I performed a history and physical on the patient. Lung sounds continue with scattered rhonchi more so on the right with crackles in the right lung. I discussed the findings along with the assessment and plan of care with my nurse practitioner, Princess Grossman. I attest to the above note as dictated by her.
[2017-09-06] MEDS ORDERED: PROPOFOL 10 MG/ML 20 ML VIAL IV ONE (11:46)
[2017-09-06] MEDS ORDERED: LIDOCAINE 1% INJ 10MG/ML (20 ML MDV) ONE (11:46)
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
[2017-09-06] MEDS ORDERED: IV FLUID CONTINUATION 1,000 ML IV ONE (11:56)
[2017-09-06] MEDS ORDERED: LIDOCAINE 2% INJ 20 MG/ML INTRATRACH ONE (12:16)
[2017-09-06] MEDS: METOPROLOL SUCCINATE (ER) 25 MG TAB.ER.24H PO SCH (12:18)
[2017-09-06] MEDS ORDERED: ACETYLCYSTEINE 800 MG/4 ML VIAL INHALATION ONE (12:24)
--- NOTE | 2017-09-06 12:52 | PCN ---
PROCEDURE NOTE OPERATIVE REPORT: Bronchoscopy and suctioning of mucus plug from the right mainstem bronchus and right upper lobe. PREOPERATIVE DIAGNOSIS: Right lung collapse secondary to mucus plugging involving the right mainstem bronchus and right upper lobe in a patient with history of previous bilobectomy/lobectomy of the right middle lobe and right lower lobe. POSTOPERATIVE DIAGNOSIS: Right lung collapse secondary to mucus plugging involving the right mainstem bronchus and right upper lobe in a patient with history of previous bilobectomy/lobectomy of right middle lobe and right lower lobe. ANESTHESIA USED: IV conscious sedation. PROCEDURE: The patient was prepared according to the protocol. O2 was applied via Ventimask and high-flow nasal cannula. We monitored his O2 saturation via pulse oximetry and we monitored his blood pressure intermittently. Cardiac rhythm was continuously monitored. After IV conscious sedation, a few milliliters of lidocaine were instilled into the left naris, and the disposable bronchoscope was used. The tip of the bronchoscope was advanced through the left naris down to the area of the vocal cords, which were noted to be patent. Lidocaine was applied over the vocal cords. The bronchoscope was advanced further down to the distal trachea. There was again evidence of mucus plug completely occluding the right mainstem bronchus and including the right upper lobe bronchus. Suctioning was done, I was able to remove all the mucus plugs from the right mainstem bronchus and from the right upper lobe. I was also able to visualize the stump from previous bilobectomy. The left side was examined, was noted to be relatively unremarkable. Procedure was well tolerated. No evidence of any immediate complications. MMODL / IJN: [id number] /
[2017-09-06 13:11] LABS: Glucose,Whole Blood 110 mg/dL (75-99)
[2017-09-06] MEDS: ALLOPURINOL 100 MG TAB PO SCH (13:33)
[2017-09-06] MEDS: predniSONE 10 MG TAB PO SCH (13:34)
[2017-09-06] MEDS: CITALOPRAM HYDROBROMIDE 20 MG TAB PO SCH (13:34)
[2017-09-06] MEDS: DILTIAZEM CD 180 MG CAP.ER.24H PO SCH (13:34)
[2017-09-06] MEDS: MEGESTROL 400 MG/10 ML CUP PO SCH (13:34)
[2017-09-06] MEDS: guaiFENesin 600 MG TABLET.ER PO SCH ×2 (13:34→21:31)
[2017-09-06] MEDS: LINAGLIPTIN 5 MG TABLET PO SCH (13:34)
--- NOTE | 2017-09-06 13:34 | XR ---
EXAMINATION TYPE: XR chest 1V portable DATE OF EXAM: 09/06/2017 COMPARISON: Prior chest x-ray 09/06/2017 at earlier time HISTORY: Status post bronchoscopy TECHNIQUE: Single frontal view of the chest is obtained. FINDINGS: There is some slight interval improvement in aeration in the right lung. Persistent opacit y is noted throughout the right and left however. No other significant change. IMPRESSION: Persistent atelectasis. There may be associated effusion. Correlate to exclude pneumonia .
[2017-09-06] MEDS: oxyCODONE-APAP 10-325MG 1 EACH TAB PO PRN (13:40)
[2017-09-06 16:42] LABS: Glucose,Whole Blood 222 mg/dL (75-99)
[2017-09-06 20:55] LABS: Glucose,Whole Blood 169 mg/dL (75-99)
[2017-09-06] MEDS ORDERED: METOPROLOL TARTRATE 25 MG TAB PO SCH (21:00)
[2017-09-06] MEDS: MULTIVITAMINS, THERA 1 EACH TAB PO SCH (21:31)
[2017-09-06 23:24] LABS: Calcium 8.2 mg/dL (8.4-10.2); Magnesium 1.8 mg/dL (1.6-2.3); Potassium 5.1 mmol/L (3.5-5.1)
[2017-09-07] MEDS ORDERED: METOPROLOL TARTRATE 25 MG TAB PO STA (00:12)
[2017-09-07 00:25] LABS: Anisocytosis Slight; CH 25.8; CHCM 29.3; HDW 2.45; HGB 8.3 gm/dL (13.0-17.5); Hypochromasia Marked; MCH 25.4 pg (25.0-35.0); MCHC 28.7 g/dL (31.0-37.0); MCV 88.3 fL (80.0-100.0); Mean Platelet Volume 7.5; RBC 3.28 m/uL (4.30-5.90); RDW 17.8 % (11.5-15.5); WBC 19.2 k/uL (3.8-10.6)
[2017-09-07] MEDS: MAGNESIUM SULFATE-D5W PMX 1 GM in DEXTROSE/WATER 1 100ML.BAG IVPB SCH ×2 (00:37→01:51)
[2017-09-07] MEDS: MORPHINE SULFATE 2 MG/ML SYRINGE IVP PRN (05:29)
[2017-09-07 06:08] LABS: Anisocytosis Slight; Basophils # (A) 0.1 k/uL (0-0.2); Basophils % (A) 0 %; CH 26.1; CHCM 29.3; Eosinophils # (A) 0.4 k/uL (0-0.7); Eosinophils % (A) 2 %; HDW 2.53; HGB 8.6 gm/dL (13.0-17.5); Hypochromasia Marked; Luc # (Auto) 0.51; Luc % (Auto) 3; Lymphocytes # (A) 1.6 k/uL (1.0-4.8); Lymphocytes % (A) 10 %; MCH 25.6 pg (25.0-35.0); MCHC 28.7 g/dL (31.0-37.0); MCV 89.4 fL (80.0-100.0); Mean Platelet Volume 7.5; Monocytes % (A) 6 %; Neutrophils # (A) 12.6 k/uL (1.3-7.7); Neutrophils % (A) 78 %; RBC 3.36 m/uL (4.30-5.90); RDW 18.2 % (11.5-15.5); WBC 16.2 k/uL (3.8-10.6); WBC (Perox) 11.99
[2017-09-07 06:09] LABS: Glucose,Whole Blood 136 mg/dL (75-99)
[2017-09-07 06:26] LABS: Calcium 8.3 mg/dL (8.4-10.2); Magnesium 2.1 mg/dL (1.6-2.3); Potassium 5.1 mmol/L (3.5-5.1)
[2017-09-07] MEDS: INSULIN LISPRO (humaLOG) 300 UNIT/3 ML VIAL SQ SCH ×4 (06:28→21:22)
[2017-09-07] MEDS: CALCIUM CARB-VIT D 500MG-200UN 1 EACH TAB PO SCH ×2 (06:29→17:03)
[2017-09-07] MEDS: PANTOPRAZOLE 40 MG TABLET PO SCH (06:29)
[2017-09-07] MEDS: IPRATROPIUM-ALBUTEROL 3 ML NEB INHALATION SCH ×4 (07:50→20:04)
[2017-09-07] MEDS: SYMBICORT 160-4.5 MCG INHALER INHALATION SCH ×2 (07:50→20:03)
[2017-09-07] MEDS: DILTIAZEM CD 180 MG CAP.ER.24H PO SCH (08:09)
[2017-09-07] MEDS: MEGESTROL 400 MG/10 ML CUP PO SCH (08:10)
[2017-09-07] MEDS: CITALOPRAM HYDROBROMIDE 20 MG TAB PO SCH (08:10)
[2017-09-07] MEDS: METOPROLOL TARTRATE 50 MG TAB PO SCH ×2 (08:10→19:54)
[2017-09-07] MEDS: guaiFENesin 600 MG TABLET.ER PO SCH ×2 (08:10→19:54)
[2017-09-07] MEDS: LINAGLIPTIN 5 MG TABLET PO SCH (08:10)
[2017-09-07] MEDS: LIDOCAINE 5% PATCH TOPICAL SCH (08:10)
[2017-09-07] MEDS: ALLOPURINOL 100 MG TAB PO SCH (08:10)
[2017-09-07] MEDS: predniSONE 10 MG TAB PO SCH (08:10)
[2017-09-07] MEDS: BACITRACIN 500 UNIT/GM OINT 28.4 GM TUBE TOPICAL SCH (08:13)
--- NOTE | 2017-09-07 09:54 | XR ---
EXAMINATION TYPE: XR chest 1V portable DATE OF EXAM: 09/07/2017 COMPARISON: 09/06/2017 HISTORY: Shortness of breath abnormal x-ray TECHNIQUE: Single frontal view of the chest is obtained. FINDINGS: Persistent near complete complete opacification of the right hemithorax. Left lung clear. There is volume loss on the right and truncation of the right mainstem bronchus. Differential diagnos is would include endobronchial lesion or mucous plug. Suggestion of a PICC line. IMPRESSION: 1. Stable near complete opacification the right hemithorax
--- NOTE | 2017-09-07 09:56 | P.PN ---
Subjective Patient is seen in follow-up for acute kidney injury on chronic kidney disease. Patient has chronic kidney disease stage III secondary to chronic NSAID use and cisplatin toxicity with baseline creatinine near 1.6-1.8 recently. Renal function was worsening with creatinine up to 1.9 as of September 03. Diuretics were discontinued. Creatinine is now stable at 1.55 today. He is currently being treated for pneumonia with IV antibiotics. He's also had mucous plugging and has undergone multiple bronchoscopies this admission. Most recent bronchoscopy was September 06. He admits to good urine output. Appetite is fair. He gets short of breath with even minimal exertion. He is refusing tracheostomy. Vital signs are stable. General: The patient appeared well nourished and normally developed. HEENT: Head exam is unremarkable. Neck is without jugular venous distension. LUNGS: Lungs are clear to auscultation and percussion. Breath sounds decreased. HEART: Rate and Rhythm are regular. First and second heart sounds normal. No murmurs, rubs or gallops. ABDOMEN: Abdominal exam reveals normal bowel sounds. Non-tender and non- distended. No evidence of peritonitis. EXTREMITITES: No edema. Objective - Vital Signs Vital signs: Vital Signs Temp 97.8 F 09/07/17 07:57 Pulse 95 09/07/17 08:03 Resp 22 09/07/17 07:57 BP 118/62 09/07/17 07:57 Pulse Ox 93 L 09/07/17 07:57 Intake & Output 09/06/17 09/07/17 09/07/17 18:59 06:59 18:59 Intake Total 240 840 Output Total 550 750 Balance -310 90 Weight 142.5 kg Intake: IV 140 200 Sodium Chloride 0.9% 1, 40 200 000 ml @ 20 mls/hr IV . Q24H [facility] Rx#:[id number] Intake, IV Titration 200 Amount Magnesium Sulfate-D5w Pmx 200 1 gm In Dextrose/Water 1 100ml.bag @ 100 mls/hr IVPB Q1H [facility] Rx#: [id number] Oral 100 440 Output: Urine 550 750 Other: Voiding Method Urinal Urinal Urinal # Voids 1 1 # Bowel Movements 1 - Labs CBC & Chem 7: 09/07/17 05:31 09/07/17 05:31 Labs: Abnormal Lab Results - Last 24 Hours (Table) 09/06/17 09/06/17 09/06/17 Range/Units 13:09 16:29 20:52 WBC (3.8-10.6) k/uL RBC (4.30-5.90) m/uL Hgb (13.0-17.5) gm/dL Hct (39.0-53.0) % MCHC (31.0-37.0) g/dL RDW (11.5-15.5) % Neutrophils # (1.3-7.7) k/uL Sodium (137-145) mmol/L BUN (9-20) mg/dL Creatinine (0.66-1.25) mg/dL Glucose (74-99) mg/dL POC Glucose (mg/dL) 110 H 222 H 169 H (75-99) mg/dL Calcium (8.4-10.2) mg/dL 09/06/17 09/06/17 09/07/17 Range/Units 22:53 22:53 05:31 WBC 19.2 H 16.2 H (3.8-10.6) k/uL RBC 3.28 L 3.36 L (4.30-5.90) m/uL Hgb 8.3 L 8.6 L (13.0-17.5) gm/dL Hct 29.0 L 30.0 L (39.0-53.0) % MCHC 28.7 L 28.7 L (31.0-37.0) g/dL RDW 17.8 H 18.2 H (11.5-15.5) % Neutrophils # 12.6 H (1.3-7.7) k/uL Sodium 136 L (137-145) mmol/L BUN 40 H (9-20) mg/dL Creatinine 1.50 H (0.66-1.25) mg/dL Glucose 172 H (74-99) mg/dL POC Glucose (mg/dL) (75-99) mg/dL Calcium 8.2 L (8.4-10.2) mg/dL 09/07/17 09/07/17 Range/Units 05:31 06:05 WBC (3.8-10.6) k/uL RBC (4.30-5.90) m/uL Hgb (13.0-17.5) gm/dL Hct (39.0-53.0) % MCHC (31.0-37.0) g/dL RDW (11.5-15.5) % Neutrophils # (1.3-7.7) k/uL Sodium (137-145) mmol/L BUN 39 H (9-20) mg/dL Creatinine 1.55 H (0.66-1.25) mg/dL Glucose 126 H (74-99) mg/dL POC Glucose (mg/dL) 136 H (75-99) mg/dL Calcium 8.3 L (8.4-10.2) mg/dL Microbiology - Last 24 Hours (Table) 09/04/17 12:00 Gram Stain - Final Bronchial Washings - Right Bronchial Washings Culture - Final Corynebacterium striatum Assessment and Plan Plan: Assessment: #1. Nonoliguric acute kidney injury secondary to ischemic ATN secondary to hypotension and diuresis. Creatinine peaked at 2.4 for this admission. It was worsening the last few days with creatinine 1.9 as of September 03. Diuretics were discontinued. Creatinine stable at 1.55 today. No evidence of retention. No proteinuria on urinalysis but repeat UA shows 1+ proteinuria which can be nonspecific in the setting of acute kidney injury. Granular casts on UA suggestive of ATN. #2. Right-sided pneumonia. Maintained on antibiotics per infectious disease recommendations. Bronchial washings from September 04 again positive for Corynebacterium area #3. Recurrent mucus plugging status post 7 bronchoscopies this admission. #4. Chronic kidney disease stage III secondary to chronic NSAID use as well as cisplatin. Recently creatinine has been near 1.6-1.8. #5. Acute hypoxic respiratory failure status post bronchoscopy with clearing of mucous plugging. #6. Non-small cell lung cancer being followed by oncology. #7. Hypomagnesemia secondary to diuresis. Improved. #8. Hypocalcemia secondary to acute kidney injury. Improved. Maintained on Os -Clifton D as well as calcitriol. Vitamin D and PTH in the normal range. Plan: Encouraged oral intake. Continue Os-Clifton and Rocaltrol. Avoid nephrotoxic agents and hypotensive episodes. Continue to monitor renal function and urine output. Repeat electrolytes in the morning. Follow-up urine culture. Hold diuretics. Potential transfer to select specialty as well as tracheostomy has been discussed with the patient and the family by pulmonology. today.
[2017-09-07] MEDS ORDERED: IV VANCOMYCIN PER PHARMACY 1 EACH MISC MISCELLANE PRN (10:30)
[2017-09-07] MEDS ORDERED: PIPERACILLIN-TAZOBACTAM 3.375 GM in DEXTROSE/WATER 1 50ML.BAG IVPB SCH (11:00)
[2017-09-07] MEDS ORDERED: VANCOMYCIN 2,250 MG in SODIUM CHLORIDE 0.9% 500 ML IVPB ONE (11:00)
--- NOTE | 2017-09-07 11:10 | P.PN ---
Subjective Progress Note Date: 09/07/17 Principal diagnosis: Right-sided consolidation secondary to pseudomonas aeruginosa 67-year-old male patient who came into the intensive care yesterday with a complete right lung collapse. I performed a bronchoscopy and therapeutic airway suctioning and copious amounts of mucous plug was aspirated from the right lung. Postop, the patient a chest x-ray today and the right lung is adequately expanded and the patient has adequate rotation of the right upper lobe. Note that he has a right middle lobe/right lower lobe resection and the stump looked quite healthy during the bronchoscope. Is currently on fleets of oxygen nasal cannula. Previous cultures have showed pseudomonas and Moraxella and the patient is currently on IV Fortaz. No fever. No chills. No night sweats. He is tolerating his breathing treatments. He is tolerating his antibiotics. No signs of septicemia. No aspiration. No other complaints otherwise. He was on BiPAP on and off throughout the night. Aggressive chest PT is being performed. No other significant events over the past 24 hours. On 08/30/2017 the patient is being seen in follow-up. Is doing extremely well. No respiratory difficulties. Chest x-ray shows expansion of the right upper lobe with adequate aeration. Limited cough without any significant hemoptysis. He is able to bring up some sputum. He is using incentive spirometer. Afebrile. Hemodynamically stable. No nausea. No vomiting. Tolerating diet. No other significant events over the past 24 hours. The patient remains on IV Fortaz for now. He is having aggressive chest PT and pulmonary toileting for now. The patient was seen again today 08/31/2017 in follow-up in the intensive care unit. He is currently resting quite comfortably in bed. He is awake and alert in no acute distress. He did utilize BiPAP / at 40% FiO2 throughout the evening. He is currently on 6 L high flow nasal cannula to maintain O2 saturations in the 90s. He's been hemodynamically stable. Afebrile. Bronchial findings from 08/25/2017 revealed no significant findings. Previously he had pseudomonas aeruginosa from 08/16/2017. He remains on ceftazidime. His chest x-ray continues to show improvement in his right lobe aeration. He continues to receive aggressive chest physiotherapy and pulmonary toileting. He continues to work well of the incentive spirometer and cough and deep breathing exercises. On 09/01/2017 patient's repeat chest x-ray and straight increased density within the right hemothorax and complete opacification with volume loss of the right lung. On evaluation patient is resting in bed, he did wear his BiPAP last night, he states he is slightly more short of breath but denies respiratory distress. He appears quite comfortable estimating in bed, on 6 L per high flow nasal cannula with O2 saturations around 93%. His lung sounds reveal no air entry on the right, clear with a few scattered rales on the left. He has been afebrile, his I-S effort remains poor, is only able to achieve 500 on it today. He has been sitting up in the chair on the daily basis, his bronchial washings from 08/25/2017 were positive for Corynebacterium striatum. Continues on IV ceftazidime, oral steroids and nebulizer treatments around-the- clock. He already ate breakfast today. Will be made nothing by mouth now, and she will be scheduled for repeat bronchoscopy with bronchial alveolar lavage with Dr. Mckeon at 1400 today and the endoscopic suite. Patient is in agreement with the plan. On 09/02/2017 the patient has no specific complaints. He is feeling well. After doing adequate therapeutic airway suctioning and removal of mucous plugs yesterday for a bronchoscopy, the patient's chest x-ray from today showing recurrent opacification of the right upper lobe. Despite that, the patient is not having any major stroke difficulties. No fever. No chills. No sweats. No fever. No chills. I'm still awaiting the repeat cultures that were collected from the right upper lobe to see if there is any antibiotic modifications that we can do to improve this patient's mucous production and recurrent atelectasis of the right upper lobe. He is hemodynamically stable. He is on 5-6 L of oxygen nasal cannula. He is being seen by infectious disease. He is still on IV Fortaz. No other significant events overnight. On 09/03/2017 the patient has no new complaints. Is still low 60s of oxygen by nasal cannula. Right upper lobe remains atelectatic due to mucous plugs. Awaiting final cultures from the lavage of the right upper lobe that was obtained on Monday. Meanwhile, remains on antibiotics and the patient is doing aggressive pulmonary toileting. He is doing deep breathing and coughing and he is using BiPAP overnight. On 09/04/2017, patient has no complaints, however he is still on relatively high O2 flow, 6 L nasal cannula, chest x-ray showed complete collapse of the right lung and whitening gout of the right upper lobe. Patient remains on antibiotics, remains on bronchodilators, he has been on BiPAP intermittently. Patient had difficulty clearing get big mucous plug yesterday, and he almost had respiratory arrest, but somehow he managed to do okay. Today he is asymptomatic, but chest x-ray is quite abnormal, and I had a discussion with him and his and his admitting physician that I plan to repeat bronchoscopy today and clean up the right upper lobe again. Labs were reviewed, chest x-ray was reviewed, cultures were all reviewed, On 09/05/2017, patient is basically about the same, he underwent bronchoscopy yesterday, and I was able to suction all the mucous plugs from the right mainstem bronchus and right upper lobe. However chest x-ray again today is showing collapse of the right upper lobe. So far the patient had 7 bronchoscopies in the last 3 weeks. And obviously he will need another bronchoscopy which I plan to schedule tomorrow. In the meantime remains on bronchodilators, remains on antibiotics, and it is extremely difficult to keep the right mainstem bronchus patent in spite of all these multiple bronchoscopies and in spite of antibiotics addressing the pseudomonas infection that he has. CBC was noted today, basic metabolic profile was noted. Renal profile was also noted, all labs are practically stable and about the same. Clinically the patient seems to be doing well, does not seem to be bothered much with the collapse of the right upper lobe and remains on oxygen at 6 L nasal cannula. The patient was seen again today 09/06/2017 in follow-up on the selective care unit. His chest x-ray continues to show near-complete collapse of the right upper lobe. The plan is for repeat bronchoscopy with BAL today. He remains awake and alert in no acute distress. He is receiving chest physiotherapy. He is able to expectorate small amounts of green sputum. Current white count 16.9. Hemoglobin 8.7. Creatinine 1.50. He is afebrile. Hemodynamically stable. Maintaining O2 saturations in the low 90s on 5 L high flow nasal cannula. He continues to utilize BiPAP throughout the evenings. She was seen again today 09/07/2017 in follow-up on the selective care unit. He is currently resting quite comfortably in bed. He denies any worsening shortness of breath. He continues with a productive cough of pale yellow sputum. Today's chest x-ray is stable. There is continued opacification of the right upper lobe. He is maintaining good O2 saturations in the 90s on 6 L high flow nasal cannula. Utilizes BiPAP throughout the evenings. He is afebrile. Hemodynamically stable. White count 16.2. Hemoglobin 8.6. Creatinine 1.55. Objective - Vital Signs Vital signs: Vital Signs Temp 97.8 F 09/07/17 07:57 Pulse 95 09/07/17 08:03 Resp 22 09/07/17 07:57 BP 118/62 09/07/17 07:57 Pulse Ox 93 L 09/07/17 07:57 Intake & Output 09/06/17 09/07/17 09/07/17 18:59 06:59 18:59 Intake Total 240 840 Output Total 550 750 Balance -310 90 Weight 142.5 kg Intake: IV 140 200 Sodium Chloride 0.9% 1, 40 200 000 ml @ 20 mls/hr IV . Q24H [facility] Rx#:[id number] Intake, IV Titration 200 Amount Magnesium Sulfate-D5w Pmx 200 1 gm In Dextrose/Water 1 100ml.bag @ 100 mls/hr IVPB Q1H [facility] Rx#: [id number] Oral 100 440 Output: Urine 550 750 Other: Voiding Method Urinal Urinal Urinal # Voids 1 1 # Bowel Movements 1 - Exam GENERAL EXAM: Alert, comfortable in no apparent distress. HEAD: Normocephalic. EYES: Normal reaction of pupils, equal size. NOSE: Clear with pink turbinates. THROAT: No erythema or exudates. NECK: No masses, no JVD. CHEST: No chest wall deformity. LUNGS: Equal air entry with bilateral scattered rhonchi crackles in the right upper lung. CVS: S1 and S2 normal with no audible mumurs, regular rhythm. ABDOMEN: No hepatosplenomegaly, normal bowel sounds, no guarding or rigidity. SPINE: No scoliosis or deformity SKIN: No rashes CENTRAL NERVOUS SYSTEM: No focal deficits, tone is normal in all 4 extremities. Extremities: There is trace peripheral edema. No clubbing, no cyanosis. Peripheral pulses are intact. - Labs CBC & Chem 7: 09/07/17 05:31 09/07/17 05:31 Labs: Abnormal Lab Results - Last 24 Hours (Table) 09/06/17 09/06/17 09/06/17 Range/Units 13:09 16:29 20:52 WBC (3.8-10.6) k/uL RBC (4.30-5.90) m/uL Hgb (13.0-17.5) gm/dL Hct (39.0-53.0) % MCHC (31.0-37.0) g/dL RDW (11.5-15.5) % Neutrophils # (1.3-7.7) k/uL Sodium (137-145) mmol/L BUN (9-20) mg/dL Creatinine (0.66-1.25) mg/dL Glucose (74-99) mg/dL POC Glucose (mg/dL) 110 H 222 H 169 H (75-99) mg/dL Calcium (8.4-10.2) mg/dL Iron (49-181) ug/dL 09/06/17 09/06/17 09/07/17 Range/Units 22:53 22:53 05:31 WBC 19.2 H 16.2 H (3.8-10.6) k/uL RBC 3.28 L 3.36 L (4.30-5.90) m/uL Hgb 8.3 L 8.6 L (13.0-17.5) gm/dL Hct 29.0 L 30.0 L (39.0-53.0) % MCHC 28.7 L 28.7 L (31.0-37.0) g/dL RDW 17.8 H 18.2 H (11.5-15.5) % Neutrophils # 12.6 H (1.3-7.7) k/uL Sodium 136 L (137-145) mmol/L BUN 40 H (9-20) mg/dL Creatinine 1.50 H (0.66-1.25) mg/dL Glucose 172 H (74-99) mg/dL POC Glucose (mg/dL) (75-99) mg/dL Calcium 8.2 L (8.4-10.2) mg/dL Iron (49-181) ug/dL 09/07/17 09/07/17 09/07/17 Range/Units 05:31 05:31 06:05 WBC (3.8-10.6) k/uL RBC (4.30-5.90) m/uL Hgb (13.0-17.5) gm/dL Hct (39.0-53.0) % MCHC (31.0-37.0) g/dL RDW (11.5-15.5) % Neutrophils # (1.3-7.7) k/uL Sodium (137-145) mmol/L BUN 39 H (9-20) mg/dL Creatinine 1.55 H (0.66-1.25) mg/dL Glucose 126 H (74-99) mg/dL POC Glucose (mg/dL) 136 H (75-99) mg/dL Calcium 8.3 L (8.4-10.2) mg/dL Iron 20 L (49-181) ug/dL Microbiology - Last 24 Hours (Table) 09/04/17 12:00 Gram Stain - Final Bronchial Washings - Right Bronchial Washings Culture - Final Corynebacterium striatum Assessment and Plan Plan: Impression: #1 Acute on chronic systolic congestive heart failure. #2 Atrial fibrillation with varying ventricular response. #3 Acute right lung pneumonia, secondary to pseudomonas aeruginosa. He completed his course of ceftazidime. Follow-up bronchoscopy washings revealed no growth. Multiple bronchoscopies with BAL this admission. Most recently . #4 Acute hypoxic respiratory failure secondary to above. #5 Diabetes mellitus, type II. #6 History of CVA. #7 Hypertension. #8 History of lung, non-small cell carcinoma. History of right lower lobectomy #9 Hyperlipidemia. #10 Renal insufficiency. #11 Ventricular tachycardia. #12 Acute fall status post with right hip pain, negative for fracture. Plan: The patient was seen and evaluated by Dr. Adame. His chest x-ray and labs was reviewed. Continue with BiPAP at the bedside. Continue pulmonary toileting. We'll continue with his current medications. He has completed his course of ceftazidime. Most recent cultures do not reveal recurrence of pseudomonas. The patient has had an ongoing and prolonged hospitalization. Transfer to select specialty has been discussed. The patient and family are having ongoing discussions. Discharge planning is in place. We'll continue to follow. I performed a history and physical on the patient. Lung sounds continue with scattered rhonchi more so on the right with crackles in the right lung. I discussed the findings along with the assessment and plan of care with my nurse practitioner, Princess Grossman. I attest to the above note as dictated by her.
[2017-09-07 11:49] LABS: Glucose,Whole Blood 195 mg/dL (75-99)
--- NOTE | 2017-09-07 12:45 | P.CRDCN ---
History of Present Illness Consult date: 09/07/17 Requesting physician: Francis Schroeder Reason for Consult (text): V tach Chief complaint: Fall History of present illness: This is a 67-year-old gentleman who follows in the office with Dr. Armando. He has a known history of chronic persistent atrial fibrillation, diabetes, GI bleed, lung cancer,diabtes, renal insufficiency, GERD and asthma, COPD, non-small cell lung CA status post chemotherapy, right and middle lower lobe resections, patient also has history of hydradenitis for which she sees Dr. Hardy, he has been on Humira for this. Patient had been on anticoagulation in the past, but had a significant GI bleed as well as bleeding from his hydradenitis, therefore this was discontinued by Dr. Armando. Patient originally presented to the hospital after experiencing a fall at home, he was complaining of some right hip pain. He was found here to have evidence of right hip fracture, patient has undergone multiple bronchoscopies by Dr. Jerry during this admission due to recurrent mucous plug causing respiratory distress. He is also being followed here by Dr. Hardy. Cardiology consultation was requested because of 2 runs of nonsustained ventricular tachycardia. Patient's EKG initially shows atrial fibrillation, moderately rapid ventricular response. White blood cell count today 16.2, hemoglobin 8.6, potassium 5.1, BUN 39, creatinine 1.5. Magnesium is 2.1. Potassium 5.1. Early on beta claudio and calcium channel caludio which we will continue. He did have an echocardiogram with Doppler study performed in January of this year which revealed a normal left ventricular systolic function, we will also repeat an echo this admission. Discussions have been made with the patient and his regarding hospice. Past Medical History Past Medical History: Atrial Fibrillation, Asthma, Cancer, Diabetes Mellitus, Eye Disorder, GERD/Reflux, GI Bleed, Hearing Disorder / Deafness, Renal Disease , Respiratory Disorder, Skin Disorder Additional Past Medical History / Comment(s): Chronic renal failure, non-small cell lung cancer with a previous right middle lobe/right lower lobe resection, hydradenitis, obesity, chronic atrial fibrillation, diabetes mellitus, acid reflux, hearing impairment, previous history of ulceration related to hydradenitis"yeast in throat", History of Any Multi-Drug Resistant Organisms: None Reported Past Surgical History: Appendectomy, Cholecystectomy, Orthopedic Surgery Additional Past Surgical History / Comment(s): Right middle lobe/right lower lobe resection for non-small cell lung cancer, lap band, , UVP3, cyst removal off hip, surgery for perforated duodenal ulcer, ORIF for a left tib/fib fracture , 07-22-17 bronchoscopy. Past Anesthesia/Blood Transfusion Reactions: No Reported Reaction Additional Psychological History / Comment(s): Patient was a smoker of 2-/23 packs per day for 47 years, QUIT 4-5 YEARS AGO. He denies any medical marijuana , marijuana, street drug or alcohol use. He has been on disability since 1990. From sustained work susatined lead poisoning there in 1971. 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 care for by the at the family home. No experience or travel. No animal exposures. Smoking Status: Former smoker - Past Family History Father Family Medical History: Cancer, Diabetes Mellitus, Liver Disease Mother Family Medical History: Cancer, Thyroid Disorder Medications and Allergies Home Medications Medication Instructions Recorded Confirmed Type Calcitriol [Rocaltrol] 0.25 mcg PO TH 06/06/16 08/14/17 History Albuterol Nebulized [Ventolin 2.5 mg INHALATION RT-QID PRN 10/23/16 08/14/17 History Nebulized] Calcium Carbonate/Vitamin D3 1 tab PO BID 10/23/16 08/14/17 History [Calcium 600-Vit D3 200 Tablet] Meclizine [Antivert] 25 mg PO Q8H PRN 10/23/16 08/14/17 History Multivitamins, Thera [Multivitamin 1 tab PO HS 10/23/16 08/14/17 History (formulary)] Linagliptin [Tradjenta] 5 mg PO DAILY tablet 10/27/16 08/14/17 Rx Adalimumab [Humira Pen Crohn-Uc-Hs 40 mg SQ FR 02/08/17 08/14/17 History Starter] Albuterol Inhaler [Ventolin Hfa 1 - 2 puff INHALATION RT-Q6H PRN 02/08/17 History Inhaler] Cephalexin [Keflex] 1,000 mg PO QAM 02/08/17 08/14/17 History Cephalexin [Keflex] 500 mg PO HS 02/08/17 08/14/17 History Diltiazem HCl [Cardizem LA] 360 mg PO DAILY 02/08/17 08/14/17 History Omeprazole [PriLOSEC] 20 mg PO BID 02/08/17 08/14/17 History Citalopram Hydrobromide [CeleXA] 40 mg PO DAILY 07/21/17 08/14/17 History Furosemide [Lasix] 80 mg PO BID 07/21/17 08/14/17 History Metolazone [Zaroxolyn] 5 mg PO MOWEFR 07/21/17 08/14/17 History Metoprolol Succinate [Toprol XL] 12.5 mg PO BID 07/21/17 08/14/17 History Spironolactone [Aldactone] 25 mg PO DAILY 07/21/17 08/14/17 History predniSONE 10 mg PO DAILY 07/21/17 08/14/17 History Allopurinol [Zyloprim] 100 mg PO DAILY 08/14/17 08/14/17 History Nystatin 100,000 Unit/ml Susp 5 ml PO QID 08/14/17 08/14/17 History [Mycostatin Oral Susp] Spironolactone [Aldactone] 25 mg PO DAILY 08/14/17 08/14/17 History guaiFENesin 400 mg PO TID 08/14/17 08/14/17 History Ceftazidime [Fortaz] 2 gm IV Q8H #30 vial 08/24/17 Rx Allergies Allergy/AdvReac Type Severity Reaction Status Date / Time clindamycin AdvReac Diarrhea Verified 08/14/17 14:34 Physical Exam Vitals: Vital Signs Temp Pulse Pulse Resp BP Pulse Ox 09/07/17 11:14 85 09/07/17 11:04 82 09/07/17 08:03 95 09/07/17 07:57 97.8 F 85 22 118/62 93 L 09/07/17 07:51 93 93 L 09/07/17 03:30 97.6 F 84 20 123/72 99 09/07/17 00:00 98.6 F 90 20 125/74 95 09/06/17 20:05 88 09/06/17 20:00 97.1 F L 95 20 117/69 95 09/06/17 19:49 84 09/06/17 17:07 107 H 09/06/17 16:43 88 09/06/17 16:15 98 F 88 18 109/66 92 L 09/06/17 12:39 107 H 18 108/68 94 L Intake and Output 09/06/17 09/07/17 09/07/17 22:59 06:59 14:59 Intake Total 100 840 Output Total 350 750 Balance -250 90 Intake: IV 200 Sodium Chloride 0.9% 1, 200 000 ml @ 20 mls/hr IV . Q24H [facility] Rx#:[id number] Intake, IV Titration 200 Amount Magnesium Sulfate-D5w Pmx 200 1 gm In Dextrose/Water 1 100ml.bag @ 100 mls/hr IVPB Q1H [facility] Rx#: [id number] Oral 100 440 Output: Urine 350 750 Other: Voiding Method Urinal Urinal Urinal # Voids 1 Weight 142.5 kg PHYSICAL EXAMINATION: HEENT: Head is atraumatic, normocephalic. Pupils equal, round. Neck is supple. There is no elevated jugular venous pressure. HEART EXAMINATION: Heart S1, S2 irregularly irregular a systolic murmur is heard . No murmur or gallop heard. CHEST EXAMINATION: Lungs reveal scattered coarse rhonchi throughout. ABDOMEN: Soft, nontender. Bowel sounds are heard. No organomegaly noted. EXTREMITIES: 2+ peripheral pulses with trace evidence of peripheral edema and no calf tenderness noted. NEUROLOGIC patient is awake, alert and oriented -3. . Results 09/07/17 05:31 09/07/17 05:31 CBC 09/06/17 09/07/17 Range/Units 22:53 05:31 WBC 19.2 H 16.2 H (3.8-10.6) k/uL RBC 3.28 L 3.36 L (4.30-5.90) m/uL Hgb 8.3 L 8.6 L (13.0-17.5) gm/dL Hct 29.0 L 30.0 L (39.0-53.0) % Plt Count 374 380 (150-450) k/uL Comprehensive Metabolic Panel 09/06/17 09/07/17 Range/Units 22:53 05:31 Sodium 136 L 137 (137-145) mmol/L Potassium 5.1 5.1 (3.5-5.1) mmol/L Chloride 102 103 (98-107) mmol/L Carbon Dioxide 27 27 (22-30) mmol/L BUN 40 H 39 H (9-20) mg/dL Creatinine 1.50 H 1.55 H (0.66-1.25) mg/dL Glucose 172 H 126 H (74-99) mg/dL Calcium 8.2 L 8.3 L (8.4-10.2) mg/dL Current Medications Generic Name Dose Route Start Last Admin Trade Name Freq PRN Reason Stop Dose Admin Albuterol/Ipratropium 3 ml 08/23/17 16:00 09/07/17 11:04 Duoneb 0.5 Mg-3 Mg/3 Ml Soln INHALATION 3 ml RT-QID [facility] Administration Albuterol/Ipratropium 3 ml 08/23/17 13:14 Duoneb 0.5 Mg-3 Mg/3 Ml Soln INHALATION RT-QID PRN Shortness Of Breath Or Wheezing Allopurinol 100 mg 08/15/17 09:00 09/07/17 08:10 Zyloprim PO 100 mg DAILY [facility] Administration Bacitracin 1 applic 08/15/17 14:00 09/07/17 08:13 Bacitracin Oint TOPICAL Not Given DAILY [facility] Bismuth Subsalicylate 524 mg 08/19/17 15:58 09/01/17 07:45 Bismatrol PO 524 mg Q1HR PRN Administration Diarrhea Budesonide/Formoterol Fumarate 2 puff 08/23/17 20:00 09/07/17 07:50 Symbicort 160-4.5 Mcg Inhaler INHALATION 2 puff RT-BID [facility] Administration Calcitriol 0.25 mcg 08/17/17 12:00 08/31/17 12:03 Rocaltrol PO 0.25 mcg Th@1200 [facility] Administration Calcium Carbonate 1 each 08/15/17 17:30 09/07/17 06:29 Oscal 500+D PO 1 each BID-W/MEALS [facility] Administration Citalopram Hydrobromide 40 mg 08/15/17 09:00 09/07/17 08:10 Celexa PO 40 mg DAILY [facility] Administration Cyclobenzaprine HCl 10 mg 08/15/17 12:56 08/29/17 23:13 Flexeril PO 10 mg BID PRN Administration Muscle Spasm Diltiazem HCl 360 mg 08/15/17 09:00 09/07/17 08:09 Cardizem Cd PO 360 mg DAILY [facility] Administration Guaifenesin 1,200 mg 09/01/17 09:00 09/07/17 08:10 Mucinex PO 1,200 mg BID [facility] Administration Sodium Chloride 1,000 mls @ 20 mls/hr 08/16/17 21:45 09/06/17 23:20 Saline 0.9% IV 20 mls/hr .Q24H [facility] Administration Vancomycin HCl 2,250 mg/ 500 mls @ 167 mls/hr 09/07/17 11:00 09/07/17 11:34 Sodium Chloride IVPB 09/07/17 13:59 167 mls/hr ONCE ONE Administration Vancomycin HCl 2,000 mg/ 500 mls @ 167 mls/hr 09/08/17 11:00 Sodium Chloride IVPB Q24H [facility] Piperacillin/Tazobactam/ 50 mls @ 12.5 mls/hr 09/07/17 15:00 Dextrose 3.375 gm/ IV Solution IVPB Q8H [facility] Insulin Human Lispro 0 unit 08/28/17 18:30 09/07/17 12:20 Humalog SQ 3 unit ACHS [facility] Administration Protocol Lidocaine 2 patch 08/23/17 09:30 09/07/17 08:10 Lidoderm TOPICAL 2 patch DAILY [facility] Administration Linagliptin 5 mg 08/15/17 09:00 09/07/17 08:10 Tradjenta PO 5 mg DAILY [facility] Administration Loperamide HCl 2 mg 08/23/17 08:55 09/04/17 08:59 Imodium PO 2 mg QID PRN Administration Diarrhea Lorazepam 0.5 mg 08/19/17 09:36 08/30/17 23:15 Ativan IV 0.5 mg Q8HR PRN Administration Anxiety Meclizine HCl 25 mg 08/14/17 17:13 Antivert PO Q8H PRN Vertigo Megestrol Acetate 400 mg 08/24/17 13:45 09/07/17 08:10 Megace PO 400 mg DAILY [facility] Administration Metoprolol Tartrate 50 mg 09/07/17 09:00 09/07/17 08:10 Lopressor PO 50 mg BID [facility] Administration Miscellaneous Information 1 each 08/30/17 05:34 Magnesium Per Protocol MISCELLANE DAILY PRN Per Protocol Protocol Morphine Sulfate 2 mg 09/06/17 09:09 09/07/17 05:29 Morphine Sulfate (Inj) IVP 2 mg Q4HR PRN Administration Severe Pain Multivitamins 1 each 08/15/17 21:00 09/06/17 21:31 Theragran PO 1 each HS [facility] Administration Naloxone HCl 0.2 mg 08/14/17 17:15 Narcan IV Q2M PRN Opioid Reversal Ondansetron HCl 4 mg 08/14/17 17:15 08/15/17 18:45 Zofran IVP 4 mg Q8HR PRN Administration Nausea And Vomiting Oxycodone/Acetaminophen 1 each 08/30/17 17:13 09/06/17 13:40 Percocet 10-325 PO 1 each Q4H PRN Administration Moderate Pain Pantoprazole Sodium 40 mg 08/14/17 18:30 09/07/17 06:29 Protonix PO 40 mg [id number] [facility] Administration Prednisone 10 mg 08/15/17 09:00 09/07/17 08:10 PO 10 mg DAILY [facility] Administration Intake and Output 09/06/17 09/07/17 09/07/17 22:59 06:59 14:59 Intake Total 100 840 Output Total 350 750 Balance -250 90 Intake: IV 200 Sodium Chloride 0.9% 1, 200 000 ml @ 20 mls/hr IV . Q24H [facility] Rx#:[id number] Intake, IV Titration 200 Amount Magnesium Sulfate-D5w Pmx 200 1 gm In Dextrose/Water 1 100ml.bag @ 100 mls/hr IVPB Q1H [facility] Rx#: [id number] Oral 100 440 Output: Urine 350 750 Other: Voiding Method Urinal Urinal Urinal # Voids 1 Weight 142.5 kg 09/07/17 05:31 09/07/17 05:31 EKG Interpretations (text) EKG shows atrial fibrillation with a controlled ventricular response. Assessment and Plan Plan: Assessment and plan #1 hypoxic respiratory failure, secondary to mucous plug. Status post bronchoscopy 7 #2 fall with evidence of hip pain #3 chronic persistent atrial fibrillation not on anticoagulation because of GI bleeding #4 right-sided pneumonia #5 hypertension #6 right middle lobe resection #7 small cell lung CA #8 nonsustained VT Plan We will obtain an echocardiogram with Doppler study. Continue calcium channel claudio and beta claudio. DNP note has been reviewed, I agree with a documented findings and plan of care. Patient was seen and examined.
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
--- NOTE | 2017-09-07 14:36 | FL ---
MODIFIED SWALLOW / DEGLUTITION STUDY DATE OF EXAM: 09/07/2017 CLINICAL HISTORY: 67-year-old male possible aspiration, head injury and bronchoscopy showing food mat erial. TECHNIQUE: Deglutition study is performed utilizing thin liquid barium, honey and nectar thick liqui d barium, barium thick applesauce, and barium coated cracker. Total fluoroscopy time: 1.53 minutes. Total images: None saved, the exam was performed in real-time. COMPARISON: None. FINDINGS: Decreased laryngeal closure is demonstrated. There are liquids show mild penetration. [place] thick li quid consistencies showed deep penetration to the level of the true vocal cords. Penetration is elimi nated with chin tuck maneuver in both of these cases. The more viscous consistencies show no evidence for penetration or aspiration IMPRESSION: 1. Mild penetration with thin liquids and deep penetration with nectar liquids. Both are eliminated w ith chin tuck maneuver. No aspiration seen during the course of the exam. 2. Decreased laryngeal closure. Please refer to speech therapist notes for further details if necessary.
[2017-09-07] MEDS ORDERED: DARBEPOETIN ALFA 60 MCG/0.3 ML SYRINGE SQ SCH (15:00)
[2017-09-07] MEDS: oxyCODONE-APAP 10-325MG 1 EACH TAB PO PRN (15:43)
[2017-09-07] MEDS: CALCITRIOL 0.25 MCG CAP PO SCH (15:44)
[2017-09-07] MEDS: PIPERACILLIN-TAZOBACTAM 3.375 GM in DEXTROSE/WATER 1 50ML.BAG IVPB SCH ×2 (15:44→23:20)
[2017-09-07 15:57] LABS: Iron Saturation 9.71 (15.00-50.00)
[2017-09-07 16:40] LABS: Glucose,Whole Blood 160 mg/dL (75-99)
[2017-09-07] MEDS: MULTIVITAMINS, THERA 1 EACH TAB PO SCH (19:53)
--- NOTE | 2017-09-07 20:48 | P.PN ---
Subjective Progress Note Date: 09/07/17 Principal diagnosis: Fall with left hip pain 67-year-old male who is well-known to the infectious disease service with as many hospitalizations as well as his hidradenitis. He's had a couple hospitalizations in the last several months that included atrial fibrillation with nonsustained V. tach. He has underlying cardiac murmur. He's had vertigo and acute renal failure. He's had some time at the extended care facility in the past year but is now home Doing relatively well under the care of his . He was hospitalized earlier this year with a bout of congestive heart failure and is in relatively well since that time. The. The patient was bathing and suffered a fall and now presents with severe right sided hip pain. He's been evaluated by orthopedics. The hidradenitis is now being treated with Humira injections at home. This is on Fridays. This has been occurring for the last couple of months now. There is been decreasing amount of drainage. His skin is becoming less erythematous and inflamed. The amount of drainage is improving The family is pleased that there is showing some improvement given the many year history of lack of improvement. However was still must apply large amounts of dressings on a daily basis to contain his drainage. The patient never became progressively more short of breath. Was transferred to intensive care unit. He's been seen by pulmonary and underwent bronchoscopy for removal of large mucous plugging to the right lung. Patient remains on BiPAP but is more stable at this time. Antimicrobial therapy was initiated with concerns to pneumonia with this pulmonary process. Cultures have revealed Moraxella and pseudomonas aeruginosa He has minimal improved pain today. Pulmonary status again was giving him difficulties, and again had bronchoscopy for the seventh time to remove more mucous plugs. Doing well after the bronchoscopy. However is certainly with weakness overall. His had significant amount of sputum production. He had a large mucous plug that he was able to express by the care of his family and a Yonker suction. The patient is starting to show some mild improvement. And there is discussion about possible transfer to select specialty. Family however is discontent with this solution and so far away. They are very close family and they will cause some hardship for them to be of the visit him. We discussed there are other options. The patient continues to have sputum production and pulmonary he has performed multiple bronchoscopies is noted. New culture data is available. Objective - Vital Signs Vital signs: Vital Signs Temp 98.3 F 09/07/17 15:44 Pulse 78 09/07/17 20:16 Resp 20 09/07/17 15:44 BP 136/70 09/07/17 15:44 Pulse Ox 94 L 09/07/17 16:51 Intake & Output 09/07/17 09/07/17 09/08/17 06:59 18:59 06:59 Intake Total 840 597 Output Total 750 175 Balance 90 422 Weight 142.5 kg Intake: IV 200 Sodium Chloride 0.9% 1, 200 000 ml @ 20 mls/hr IV . Q24H [facility] Rx#:[id number] Intake, IV Titration 200 Amount Magnesium Sulfate-D5w Pmx 200 1 gm In Dextrose/Water 1 100ml.bag @ 100 mls/hr IVPB Q1H [facility] Rx#: [id number] Oral 440 597 Output: Urine 750 175 Other: Voiding Method Urinal Urinal # Voids 1 1 # Bowel Movements 0 - Exam Pleasant 67-year-old gentleman who suffers from obesity who was miserable at this time. BiPAP though is being tolerated. Hip pain is better HEENT: Anicteric conjunctiva are pink and moist nasal mucosa grossly intact without significant lesions, there is no thrush. Neck: The neck is supple without significant lymphadenopathy or thyromegaly. Lungs: There is symmetrical air entry with evidence of crackles at the the right base Some expiratory wheezes are heard. Voice is weak Heart: Irregular with an audible S1 and S2 no S3 soft S4 There is no significant murmur click or rub, PMI was nondisplaced. Abdomen: Obese, Positive bowel sounds soft and nontender without palpable masses or organomegaly. There was no guarding or rebound. Extremities: The upper extremities have excellent pulses they are symmetric, no significant petechiae or telangiectasia. No splinter hemorrhages were noted. The left lower extremity is without significant tenderness at this time. Of note he is able to move it himself with only minimal discomfort. There is at the chronic drainage without change from last evaluation. He has extensive areas of drainage on the buttocks bilaterally and inner thighs. Neuro: awake alert conversational - Labs CBC & Chem 7: 09/07/17 05:31 09/07/17 05:31 Labs: Abnormal Lab Results - Last 24 Hours (Table) 09/06/17 09/06/17 09/06/17 Range/Units 20:52 22:53 22:53 WBC 19.2 H (3.8-10.6) k/uL RBC 3.28 L (4.30-5.90) m/uL Hgb 8.3 L (13.0-17.5) gm/dL Hct 29.0 L (39.0-53.0) % MCHC 28.7 L (31.0-37.0) g/dL RDW 17.8 H (11.5-15.5) % Neutrophils # (1.3-7.7) k/uL Sodium 136 L (137-145) mmol/L BUN 40 H (9-20) mg/dL Creatinine 1.50 H (0.66-1.25) mg/dL Glucose 172 H (74-99) mg/dL POC Glucose (mg/dL) 169 H (75-99) mg/dL Calcium 8.2 L (8.4-10.2) mg/dL Iron (49-181) ug/dL 09/07/17 09/07/17 09/07/17 Range/Units 05:31 05:31 05:31 WBC 16.2 H (3.8-10.6) k/uL RBC 3.36 L (4.30-5.90) m/uL Hgb 8.6 L (13.0-17.5) gm/dL Hct 30.0 L (39.0-53.0) % MCHC 28.7 L (31.0-37.0) g/dL RDW 18.2 H (11.5-15.5) % Neutrophils # 12.6 H (1.3-7.7) k/uL Sodium (137-145) mmol/L BUN 39 H (9-20) mg/dL Creatinine 1.55 H (0.66-1.25) mg/dL Glucose 126 H (74-99) mg/dL POC Glucose (mg/dL) (75-99) mg/dL Calcium 8.3 L (8.4-10.2) mg/dL Iron 20 L (49-181) ug/dL 09/07/17 09/07/17 09/07/17 Range/Units 06:05 11:44 16:38 WBC (3.8-10.6) k/uL RBC (4.30-5.90) m/uL Hgb (13.0-17.5) gm/dL Hct (39.0-53.0) % MCHC (31.0-37.0) g/dL RDW (11.5-15.5) % Neutrophils # (1.3-7.7) k/uL Sodium (137-145) mmol/L BUN (9-20) mg/dL Creatinine (0.66-1.25) mg/dL Glucose (74-99) mg/dL POC Glucose (mg/dL) 136 H 195 H 160 H (75-99) mg/dL Calcium (8.4-10.2) mg/dL Iron (49-181) ug/dL Laboratory Results WBC 16.2 k/uL (3.8-10.6) H 09/07/17 05:31 RBC 3.36 m/uL (4.30-5.90) L 09/07/17 05:31 Hgb 8.6 gm/dL (13.0-17.5) L 09/07/17 05:31 Hct 30.0 % (39.0-53.0) L 09/07/17 05:31 MCV 89.4 fL (80.0-100.0) 09/07/17 05:31 MCH 25.6 pg (25.0-35.0) 09/07/17 05:31 MCHC 28.7 g/dL (31.0-37.0) L 09/07/17 05:31 RDW 18.2 % (11.5-15.5) H 09/07/17 05:31 Plt Count 380 k/uL (150-450) 09/07/17 05:31 Neutrophils % 78 % 09/07/17 05:31 Lymphocytes % 10 % 09/07/17 05:31 Monocytes % 6 % 09/07/17 05:31 Eosinophils % 2 % 09/07/17 05:31 Basophils % 0 % 09/07/17 05:31 Neutrophils # 12.6 k/uL (1.3-7.7) H 09/07/17 05:31 Lymphocytes # 1.6 k/uL (1.0-4.8) 09/07/17 05:31 Monocytes # 1.0 k/uL (0-1.0) 09/07/17 05:31 Eosinophils # 0.4 k/uL (0-0.7) 09/07/17 05:31 Basophils # 0.1 k/uL (0-0.2) 09/07/17 05:31 Hypochromasia Marked 09/07/17 05:31 Anisocytosis Slight 09/07/17 05:31 Sample Site lbrac 08/16/17 08:01 ABG pH 7.46 (7.35-7.45) H 08/16/17 08:01 ABG pCO2 46 mmHg (35-45) H 08/16/17 08:01 ABG pO2 47 mmHg (83-108) L 08/16/17 08:01 ABG HCO3 32 mmol/L (21-25) H 08/16/17 08:01 ABG Total CO2 34 mmol/L (19-24) H 08/16/17 08:01 ABG O2 Saturation 85.0 % (94-97) L 08/16/17 08:01 ABG Base Excess 8.0 mmol/L 08/16/17 08:01 FiO2 60 % 08/16/17 08:01 Sodium 137 mmol/L (137-145) 09/07/17 05:31 Potassium 5.1 mmol/L (3.5-5.1) 09/07/17 05:31 Chloride 103 mmol/L (98-107) 09/07/17 05:31 Carbon Dioxide 27 mmol/L (22-30) 09/07/17 05:31 Anion Gap 7 mmol/L 09/07/17 05:31 BUN 39 mg/dL (9-20) H 09/07/17 05:31 Creatinine 1.55 mg/dL (0.66-1.25) H 09/07/17 05:31 Est GFR (MDRD) Af Amer 54 (>60 ml/min/1.73 sqM) 09/07/17 05:31 Est GFR (MDRD) Non-Af 45 (>60 ml/min/1.73 sqM) 09/07/17 05:31 Glucose 126 mg/dL (74-99) H 09/07/17 05:31 POC Glucose (mg/dL) 160 mg/dL (75-99) H 09/07/17 16:38 POC Glu Policy And Planning Manager ID Devika Lauren 09/07/17 16:[address] Glu mg/dL 143 mg/dL 08/16/17 07:03 Hemoglobin A1c 6.6 % (4.2-6.1) H 08/16/17 07:03 Calcium 8.3 mg/dL (8.4-10.2) L 09/07/17 05:31 Phosphorus 5.4 mg/dL (2.5-4.5) H 08/31/17 04:23 Magnesium 2.1 mg/dL (1.6-2.3) 09/07/17 05:31 Iron 20 ug/dL (49-181) L 09/07/17 05:31 TIBC 171 ug/dL (228-460) L 08/18/17 04:20 Iron Saturation 16.96 (15.00-50.00) 08/18/17 04:20 Ferritin 533.4 ng/mL (22.0-322.0) H 08/18/17 04:20 Total Bilirubin 0.2 mg/dL (0.2-1.3) 08/31/17 04:23 AST 12 U/L (17-59) L 08/31/17 04:23 ALT 30 U/L (21-72) 08/31/17 04:23 Alkaline Phosphatase 104 U/L (38-126) 08/31/17 04:23 Total Protein 7.0 g/dL (6.3-8.2) 08/31/17 04:23 Albumin 2.7 g/dL (3.5-5.0) L 08/31/17 04:23 Vitamin D 25-Hydroxy 31.9 ng/mL (30.0-100.0) 09/06/17 05:27 PTH Intact 22.7 pg/mL (14.0-72.0) 09/06/17 05:27 Cortisol 9 ug/dL 08/17/17 04:38 Urine Color Yellow 09/04/17 02:00 Urine Appearance Cloudy (Clear) 09/04/17 02:00 Urine pH 5.5 (5.0-8.0) 09/04/17 02:00 Ur Specific [place] 1.014 (1.001-1.035) 09/04/17 02:00 Urine Protein 1+ (Negative) H 09/04/17 02:00 Urine Glucose (UA) Negative (Negative) 09/04/17 02:00 Urine Ketones Negative (Negative) 09/04/17 02:00 Urine Blood Small (Negative) H 09/04/17 02:00 Urine Nitrite Negative (Negative) 09/04/17 02:00 Urine Bilirubin Negative (Negative) 09/04/17 02:00 Urine Urobilinogen <2.0 mg/dL (<2.0) 09/04/17 02:00 Ur Leukocyte Esterase Small (Negative) H 09/04/17 02:00 Urine RBC 2 /hpf (0-5) 09/04/17 02:00 Urine WBC 36 /hpf (0-5) H 09/04/17 02:00 Cellular Casts 1 /lpf (0) 09/04/17 02:00 Hyaline Casts 3 /lpf (0-2) H 08/14/17 23:45 Granular Casts 175 /lpf (0) 09/04/17 02:00 Urine Mucus Rare /hpf (None) H 08/14/17 23:45 Urine Yeast (Budding) Few /hpf (None) H 09/04/17 02:00 Fluid Source Bronchial Wash 08/25/17 11:00 Fluid Color Red 08/25/17 11:00 Fluid Appearance Bloody 08/25/17 11:00 Fluid RBC 68627 /uL 08/25/17 11:00 Fluid Nucleated Cells 6000 /uL 08/25/17 11:00 Fluid Polynuclear WBCs 99 % 08/25/17 11:00 Fluid Mononuclear WBCs 1 % 08/25/17 11:00 Virus Source See Below 08/25/17 11:00 Viral Test See Below 08/25/17 11:00 Virus Analysis Interp See Below 08/25/17 11:00 Microbiology 09/04/17 12:00 Bronchial Washings - Right Gram Stain - Final 09/04/17 12:00 Bronchial Washings - Right Bronchial Washings Culture - Final Corynebacterium striatum 08/25/17 11:00 Bronchial Washings - Right Acid Fast Bacilli Smear - Final 08/25/17 11:00 Bronchial Washings - Right Acid Fast Bacilli Culture - Preliminary 09/04/17 08:20 Urine,Clean Catch Urine Culture - Final 09/04/17 12:00 Bronchial Washings - Right Fungal Culture - Preliminary 09/01/17 14:46 Bronchoalviolar Lavage - Right Gram Stain - Final 09/01/17 14:46 Bronchoalviolar Lavage - Right Bronchial Washings Culture - Final Corynebacterium striatum 08/25/17 11:00 Bronchial Washings - Right Fungal Culture - Preliminary 08/25/17 11:00 Bronchial Washings - Right Gram Stain - Final 08/25/17 11:00 Bronchial Washings - Right Bronchial Washings Culture - Final Corynebacterium striatum 08/23/17 18:27 Stool Stool Culture - Final Assessment and Plan (1) Fall Current Visit: Yes Status: Acute Priority: High Code(s): W19.XXXA - UNSPECIFIED FALL, INITIAL ENCOUNTER SNOMED Code(s): 5873776 (2) Acute right hip pain Current Visit: Yes Status: Acute Code(s): M25.551 - PAIN IN RIGHT HIP SNOMED Code(s): 49694580 (3) Rib pain on left side Current Visit: Yes Status: Acute Code(s): R07.81 - PLEURODYNIA SNOMED Code (s): 888161922 (4) Hidradenitis suppurativa Narrative/Plan: 67-year-old male has multiple medical troubles including his history of squamous cell lung cancer fifth being monitored by oncology. He is followed in the infectious disease office for the treatment of his hidradenitis which is being treated currently with Humira. There has been some improvement of his significant disease state but not resolution. The last office visit the and I agreed that we would continue treatment at least until the next quarter. He tolerated this very well. He has had no worsening of his anemia or renal failure . While in hospital his Humira is on hold. Continues to have significant pain to the right hip because of the fall. Orthopedics is following. Orthopedics apparently does not believe that there is a fracture and just has a hyperextension injury. And they will follow as needed. Underwent another bronchoscopy today for his recurrent mucus plugging For antimicrobial therapy with the isolation of the Moraxella and Pseudomonas, ceftazidime was initiated at 2 g IV piggyback every 8 hours He is much more comfortable today from the right hip pain. As has noted dressings are not needed just have him on a drainage had and allow the drainage from his large draining sinus tracts to be absorbed into the pads. He's had his seventh bronchoscopy and is doing well postop. He is doing well with current antimicrobial therapy, pulmonary toileting and positioning. We'll plan at least 10-14 days of ceftaz and after his last bronch and the PICC line has been placed Patient's Humira is on hold and this will be discussed and outpatient visits if this is be prudent for further use at this time with the biggest concerns will be his overall status. Requiring frequent bronchoscopies is problematic. The pulmonary critical care team has discussed the possibility of a transfer to select specialty. He appears to be too complex for a standard extended care facility. The family has noted is somewhat discontent with this because of such a far site. They would have difficulty visiting him. We discussed other options doing this at this time. He has now been hospitalized for 21 days with very little improvement of his status. He has underlying lung disease and is a history of lung carcinoma from 5 years ago status post resection. He appears to have ongoing worsening of his status and is having difficulty recovering from the current bout of pneumonia. It is related to family that the last 3 cultures have all failed to show the Pseudomonas. It does appear that the infection itself has done better. However continues to have ongoing great difficulties with his pulmonary status. If they do not believe that is possible for him to go to select specialty, and they do not believe he is going to improve any further then there will be option for palliative care and hospice. care is discussed today with the skidder driver and the primary care physician. The most recent bronchoscopy showed evidence of some material that could be consistent with some aspiration. Constantly into microbial therapy was altered to Zosyn. This discussed that he has had multiple cultures with the corynebacterium stratium which routinely is not a significant pathogen. However given its persistence and his ongoing symptoms will be something to be considered and will be treated with vancomycin therapy. With close follow-up of his renal function in that he is being followed by nephrology. He will monitored and have repeat bronchoscopies as necessary. Speech therapy has been again requested to see him. There is some potential contemplation for tracheostomy. Current Visit: Yes Status: Acute Code(s): L73.2 - HIDRADENITIS SUPPURATIVA SNOMED Code(s): 57667474
[2017-09-07 21:09] LABS: Glucose,Whole Blood 180 mg/dL (75-99)
[2017-09-07] MEDS: LORazepam 2 MG/ML INJ IV PRN (21:29)
[2017-09-07] MEDS: SODIUM CHLORIDE 0.9% 1,000 ML IV SCH (23:19)
[2017-09-08 06:01] LABS: Glucose,Whole Blood 121 mg/dL (75-99)
[2017-09-08] MEDS: PIPERACILLIN-TAZOBACTAM 3.375 GM in DEXTROSE/WATER 1 50ML.BAG IVPB SCH ×3 (06:01→23:33)
[2017-09-08] MEDS: INSULIN LISPRO (humaLOG) 300 UNIT/3 ML VIAL SQ SCH ×4 (06:03→21:39)
[2017-09-08] MEDS: CALCIUM CARB-VIT D 500MG-200UN 1 EACH TAB PO SCH ×2 (06:46→18:59)
[2017-09-08] MEDS: PANTOPRAZOLE 40 MG TABLET PO SCH (06:46)
[2017-09-08 07:00] LABS: Calcium 8.6 mg/dL (8.4-10.2); Potassium 5.1 mmol/L (3.5-5.1)
[2017-09-08] MEDS: IPRATROPIUM-ALBUTEROL 3 ML NEB INHALATION SCH ×4 (07:26→19:18)
[2017-09-08] MEDS: SYMBICORT 160-4.5 MCG INHALER INHALATION SCH ×2 (07:26→19:19)
[2017-09-08] MEDS: METOPROLOL TARTRATE 50 MG TAB PO SCH ×2 (08:02→21:42)
[2017-09-08] MEDS: DILTIAZEM CD 180 MG CAP.ER.24H PO SCH (08:02)
[2017-09-08] MEDS: LINAGLIPTIN 5 MG TABLET PO SCH (08:03)
[2017-09-08] MEDS: CITALOPRAM HYDROBROMIDE 20 MG TAB PO SCH (08:03)
[2017-09-08] MEDS: guaiFENesin 600 MG TABLET.ER PO SCH ×2 (08:03→21:32)
[2017-09-08] MEDS: MEGESTROL 400 MG/10 ML CUP PO SCH (08:03)
[2017-09-08] MEDS: predniSONE 10 MG TAB PO SCH (08:03)
[2017-09-08] MEDS: ALLOPURINOL 100 MG TAB PO SCH (08:03)
[2017-09-08] MEDS: LIDOCAINE 5% PATCH TOPICAL SCH (08:04)
[2017-09-08] MEDS: BACITRACIN 500 UNIT/GM OINT 28.4 GM TUBE TOPICAL SCH (08:05)
--- NOTE | 2017-09-08 08:26 | XR ---
EXAMINATION TYPE: XR chest 1V portable DATE OF EXAM: 09/08/2017 COMPARISON: Prior chest x-ray 09/07/2017 HISTORY: Shortness of breath, abnormal chest x-ray, mucous plug recurrent TECHNIQUE: Single frontal view of the chest is obtained. FINDINGS: Increased opacity again noted within the right hemithorax. No other interval change. IMPRESSION: Worsening atelectasis or airspace disease.
[2017-09-08] MEDS ORDERED: NOREPINEPHRIN 4 MG-0.9% NS PMX 4 MG/250 ML ML IV ONE ×2 (10:00→12:41)
[2017-09-08 10:10] LABS: Glucose,Whole Blood 123 mg/dL (75-99)
[2017-09-08] MEDS ORDERED: IV FLUID CONTINUATION 1,000 ML IV ONE (10:22)
[2017-09-08] MEDS: DILTIAZEM 125 MG in SODIUM CHLORIDE 0.9% 100 ML IV SCH (10:23)
[2017-09-08] MEDS ORDERED: PROPOFOL 10 MG/ML 20 ML VIAL IV ONE (10:27)
[2017-09-08] MEDS ORDERED: PROPOFOL 1,000 MG/100 ML VIAL IV ONE ×2 (10:43→12:42)
[2017-09-08] MEDS ORDERED: LIDOCAINE 2% INJ 20 MG/ML INTRATRACH ONE (10:44)
[2017-09-08] MEDS: NOREPINEPHRIN 16 MG-0.9%NS PMX 16 MG/250 ML ML IV SCH (11:00)
[2017-09-08] MEDS ORDERED: VANCOMYCIN 2,000 MG in SODIUM CHLORIDE 0.9% 500 ML IVPB SCH (11:00)
[2017-09-08] MEDS: LORazepam 2 MG/ML INJ IV PRN (11:16)
--- NOTE | 2017-09-08 11:21 | XR ---
EXAMINATION TYPE: XR chest 1V portable DATE OF EXAM: 09/08/2017 COMPARISON: 09/08/2017 HISTORY: Post bronc TECHNIQUE: Single frontal view of the chest is obtained. FINDINGS: ET tube approximately 3.7 cm above the michelle. Left-sided PICC line noted. Persistent near complete opacification the right hemithorax with volume loss. There is some improved aeration. Right -sided pleural effusion also suspected with consolidation. IMPRESSION: 1. ET tube 3.7 cm above michelle. Diffuse airspace disease on the right slightly improved.
[2017-09-08 11:43] LABS: ABG Base Excess -0.5 mmol/L; ABG HCO3 24 mmol/L (21-25); ABG PCO2 40 mmHg (35-45); ABG PH 7.39 (7.35-7.45); ABG PO2 70 mmHg (83-108); ABG TCO2 25 mmol/L (19-24)
[2017-09-08] MEDS: HYDROmorphone 1 MG/ML 1 ML SYRINGE IVP PRN (12:51)
--- NOTE | 2017-09-08 13:25 | P.PN ---
Subjective Patient is seen in follow-up for acute kidney injury on chronic kidney disease. Patient has chronic kidney disease stage III secondary to chronic NSAID use and cisplatin toxicity with baseline creatinine near 1.6-1.8 recently. Renal function was worsening with creatinine up to 1.9 as of September 03. Diuretics were discontinued. Creatinine stabilized near 1.5 and is up to 1.8 this morning. He is currently being treated for pneumonia with IV antibiotics. He's also had mucous plugging and has undergone nine bronchoscopies this admission. Most recent bronchoscopy was this morning. He woke up quite dyspneic this morning and was transferred to the intensive care unit where he had an emergent bronchoscopy which revealed mucous plug once again. He is currently intubated. He also became quite hypotensive. He was given 1 L of IV fluid bolus and is currently maintained on 30 mics of levofed. Urine output is about 30 mL an hour. Patient and family have been refusing a tracheostomy. Blood pressure noted to be low. Currently on vasopressors. General: The patient appeared well nourished and normally developed. Intubated. HEENT: Head exam is unremarkable. Neck is without jugular venous distension. LUNGS: Scattered rhonchi. Breath sounds decreased. HEART: Rate and Rhythm are regular. First and second heart sounds normal. No murmurs, rubs or gallops. ABDOMEN: Abdominal exam reveals normal bowel sounds. Non-tender and non- distended. No evidence of peritonitis. EXTREMITITES: No edema. Objective - Vital Signs Vital signs: Vital Signs Temp 99.2 F 09/08/17 12:42 Pulse 103 H 09/08/17 12:42 Resp 16 09/08/17 12:42 BP 91/62 09/08/17 12:42 Pulse Ox 98 09/08/17 12:42 Intake & Output 09/07/17 09/08/17 09/08/17 18:59 06:59 18:59 Intake Total 597 330 316.167 Output Total 175 275 Balance 422 55 316.167 Weight 142.5 kg Intake: IV 160 100 Sodium Chloride 0.9% 1, 160 000 ml @ 20 mls/hr IV . Q24H [facility] Rx#:[id number] Intake, IV Titration 50 16.167 Amount Diltiazem 125 mg In 16.167 Sodium Chloride 0.9% 100 ml @ 10 MG/HR 10 mls/hr IV .[id number] [facility] Rx#: [id number] Piperacillin-Tazobactam 3 50 .375 gm In Dextrose/Water 1 50ml.bag @ 12.5 mls/hr IVPB Q8H [facility] Rx#: [id number] Oral 597 120 200 Output: Urine 175 275 Other: Voiding Method Urinal Urinal # Voids 1 # Bowel Movements 0 - Labs CBC & Chem 7: 09/07/17 05:31 09/08/17 05:48 Labs: Abnormal Lab Results - Last 24 Hours (Table) 09/07/17 09/07/17 09/07/17 Range/Units 05:31 16:38 21:07 ABG pO2 (83-108) mmHg ABG Total CO2 (19-24) mmol/L BUN (9-20) mg/dL Creatinine (0.66-1.25) mg/dL Glucose (74-99) mg/dL POC Glucose (mg/dL) 160 H 180 H (75-99) mg/dL Iron 17 L (65-175) ug/dL TIBC 175 L (228-460) ug/dL Iron Saturation 9.71 L (15.00-50.00) 09/08/17 09/08/17 09/08/17 Range/Units 05:48 05:59 09:55 ABG pO2 (83-108) mmHg ABG Total CO2 (19-24) mmol/L BUN 38 H (9-20) mg/dL Creatinine 1.80 H (0.66-1.25) mg/dL Glucose 122 H (74-99) mg/dL POC Glucose (mg/dL) 121 H 123 H (75-99) mg/dL Iron (65-175) ug/dL TIBC (228-460) ug/dL Iron Saturation (15.00-50.00) 09/08/17 Range/Units 11:41 ABG pO2 70 L (83-108) mmHg ABG Total CO2 25 H (19-24) mmol/L BUN (9-20) mg/dL Creatinine (0.66-1.25) mg/dL Glucose (74-99) mg/dL POC Glucose (mg/dL) (75-99) mg/dL Iron (65-175) ug/dL TIBC (228-460) ug/dL Iron Saturation (15.00-50.00) Microbiology - Last 24 Hours (Table) 09/04/17 12:00 Fungal Culture - Preliminary Bronchial Washings - Right Hillary albicans Assessment and Plan Plan: Assessment: #1. Nonoliguric acute kidney injury secondary to ischemic ATN secondary to hypotension and diuresis. Creatinine peaked at 2.4 for this admission. It was worsening the last few days with creatinine 1.9 as of September 03. Diuretics were discontinued. Creatinine stabilized at 1.5 but is up to 1.8 today - which is due to hypotension as well as atrial fibrillation.. No evidence of retention. No proteinuria on urinalysis but repeat UA shows 1+ proteinuria which can be nonspecific in the setting of acute kidney injury. Granular casts on UA suggestive of ATN. #2. Right-sided pneumonia. Maintained on antibiotics per infectious disease recommendations. Bronchial washings from September 04 again positive for Corynebacterium as well as Hillary albicans. #3. Recurrent mucus plugging status post 9 bronchoscopies this admission. #4. Chronic kidney disease stage III secondary to chronic NSAID use as well as cisplatin. Recently creatinine has been near 1.6-1.8. #5. Acute hypoxic respiratory failure status post bronchoscopy with clearing of mucous plugging. #6. Non-small cell lung cancer being followed by oncology. #7. Hypomagnesemia secondary to diuresis. Improved. #8. Hypocalcemia secondary to acute kidney injury. Improved. Maintained on Os -Clifton D as well as calcitriol. Vitamin D and PTH in the normal range. Plan: Continue Os-Clifton and Rocaltrol when able to tolerate oral intake. Avoid nephrotoxic agents and hypotensive episodes. Continue to monitor renal function and urine output. Repeat electrolytes in the morning. Repeat UA and urine culture. Urine in the [place] is noted to be quite milky. Hold diuretics. Wean vasopressors. May bolus with 1 more liter of 0.9 saline if urine output tapers or blood pressure drops further.
[2017-09-08] MEDS ORDERED: MORPHINE SULFATE 10 MG/ML SYRINGE IVP PRN (13:53)
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
--- NOTE | 2017-09-08 14:38 | P.PN ---
Subjective Progress Note Date: 09/08/17 Principal diagnosis: Acute fall and possible right hip fracture, right lung collapse requiring bronchoscopy and BAL 9 for mucous plug suctioning from right mainstem bronchus. 67-year-old male patient who came into the intensive care yesterday with a complete right lung collapse. I performed a bronchoscopy and therapeutic airway suctioning and copious amounts of mucous plug was aspirated from the right lung. Postop, the patient a chest x-ray today and the right lung is adequately expanded and the patient has adequate rotation of the right upper lobe. Note that he has a right middle lobe/right lower lobe resection and the stump looked quite healthy during the bronchoscope. Is currently on fleets of oxygen nasal cannula. Previous cultures have showed pseudomonas and Moraxella and the patient is currently on IV Fortaz. No fever. No chills. No night sweats. He is tolerating his breathing treatments. He is tolerating his antibiotics. No signs of septicemia. No aspiration. No other complaints otherwise. He was on BiPAP on and off throughout the night. Aggressive chest PT is being performed. No other significant events over the past 24 hours. On 08/30/2017 the patient is being seen in follow-up. Is doing extremely well. No respiratory difficulties. Chest x-ray shows expansion of the right upper lobe with adequate aeration. Limited cough without any significant hemoptysis. He is able to bring up some sputum. He is using incentive spirometer. Afebrile. Hemodynamically stable. No nausea. No vomiting. Tolerating diet. No other significant events over the past 24 hours. The patient remains on IV Fortaz for now. He is having aggressive chest PT and pulmonary toileting for now. The patient was seen again today 08/31/2017 in follow-up in the intensive care unit. He is currently resting quite comfortably in bed. He is awake and alert in no acute distress. He did utilize BiPAP 10/25 at 40% FiO2 throughout the evening. He is currently on 6 L high flow nasal cannula to maintain O2 saturations in the 90s. He's been hemodynamically stable. Afebrile. Bronchial findings from 08/25/2017 revealed no significant findings. Previously he had pseudomonas aeruginosa from 08/16/2017. He remains on ceftazidime. His chest x-ray continues to show improvement in his right lobe aeration. He continues to receive aggressive chest physiotherapy and pulmonary toileting. He continues to work well of the incentive spirometer and cough and deep breathing exercises. On 09/01/2017 patient's repeat chest x-ray and straight increased density within the right hemothorax and complete opacification with volume loss of the right lung. On evaluation patient is resting in bed, he did wear his BiPAP last night, he states he is slightly more short of breath but denies respiratory distress. He appears quite comfortable estimating in bed, on 6 L per high flow nasal cannula with O2 saturations around 93%. His lung sounds reveal no air entry on the right, clear with a few scattered rales on the left. He has been afebrile, his I-S effort remains poor, is only able to achieve 500 on it today. He has been sitting up in the chair on the daily basis, his bronchial washings from 08/25/2017 were positive for Corynebacterium striatum. Continues on IV ceftazidime, oral steroids and nebulizer treatments around-the- clock. He already ate breakfast today. Will be made nothing by mouth now, and she will be scheduled for repeat bronchoscopy with bronchial alveolar lavage with Dr. Mckeon at 1400 today and the endoscopic suite. Patient is in agreement with the plan. On 09/02/2017 the patient has no specific complaints. He is feeling well. After doing adequate therapeutic airway suctioning and removal of mucous plugs yesterday for a bronchoscopy, the patient's chest x-ray from today showing recurrent opacification of the right upper lobe. Despite that, the patient is not having any major stroke difficulties. No fever. No chills. No sweats. No fever. No chills. I'm still awaiting the repeat cultures that were collected from the right upper lobe to see if there is any antibiotic modifications that we can do to improve this patient's mucous production and recurrent atelectasis of the right upper lobe. He is hemodynamically stable. He is on 5-6 L of oxygen nasal cannula. He is being seen by infectious disease. He is still on IV Fortaz. No other significant events overnight. On 09/03/2017 the patient has no new complaints. Is still low 60s of oxygen by nasal cannula. Right upper lobe remains atelectatic due to mucous plugs. Awaiting final cultures from the lavage of the right upper lobe that was obtained on Monday. Meanwhile, remains on antibiotics and the patient is doing aggressive pulmonary toileting. He is doing deep breathing and coughing and he is using BiPAP overnight. On 09/04/2017, patient has no complaints, however he is still on relatively high O2 flow, 6 L nasal cannula, chest x-ray showed complete collapse of the right lung and whitening gout of the right upper lobe. Patient remains on antibiotics, remains on bronchodilators, he has been on BiPAP intermittently. Patient had difficulty clearing get big mucous plug yesterday, and he almost had respiratory arrest, but somehow he managed to do okay. Today he is asymptomatic, but chest x-ray is quite abnormal, and I had a discussion with him and his and his admitting physician that I plan to repeat bronchoscopy today and clean up the right upper lobe again. Labs were reviewed, chest x-ray was reviewed, cultures were all reviewed, On 09/05/2017, patient is basically about the same, he underwent bronchoscopy yesterday, and I was able to suction all the mucous plugs from the right mainstem bronchus and right upper lobe. However chest x-ray again today is showing collapse of the right upper lobe. So far the patient had 7 bronchoscopies in the last 3 weeks. And obviously he will need another bronchoscopy which I plan to schedule tomorrow. In the meantime remains on bronchodilators, remains on antibiotics, and it is extremely difficult to keep the right mainstem bronchus patent in spite of all these multiple bronchoscopies and in spite of antibiotics addressing the pseudomonas infection that he has. CBC was noted today, basic metabolic profile was noted. Renal profile was also noted, all labs are practically stable and about the same. Clinically the patient seems to be doing well, does not seem to be bothered much with the collapse of the right upper lobe and remains on oxygen at 6 L nasal cannula. The patient was seen again today 09/06/2017 in follow-up on the selective care unit. His chest x-ray continues to show near-complete collapse of the right upper lobe. The plan is for repeat bronchoscopy with BAL today. He remains awake and alert in no acute distress. He is receiving chest physiotherapy. He is able to expectorate small amounts of green sputum. Current white count 16.9. Hemoglobin 8.7. Creatinine 1.50. He is afebrile. Hemodynamically stable. Maintaining O2 saturations in the low 90s on 5 L high flow nasal cannula. He continues to utilize BiPAP throughout the evenings. She was seen again today 09/07/2017 in follow-up on the selective care unit. He is currently resting quite comfortably in bed. He denies any worsening shortness of breath. He continues with a productive cough of pale yellow sputum. Today's chest x-ray is stable. There is continued opacification of the right upper lobe. He is maintaining good O2 saturations in the 90s on 6 L high flow nasal cannula. Utilizes BiPAP throughout the evenings. He is afebrile. Hemodynamically stable. White count 16.2. Hemoglobin 8.6. Creatinine 1.55. Patient was reevaluated today on 09/08/2017, apparently the A team was called on to see the patient as he was noted to have increased shortness of breath early this morning, patient was in A. fib with RVR, hypotensive, and he was noted to be extremely short of breath. Patient was transferred immediately to the ICU, and I evaluated the patient immediately. Earlier this morning, I reviewed a chest x-ray, and I was planning to schedule the patient for bronchoscopy at noontime. However considering the significant deterioration in his clinical status, I went ahead and intubated the patient with a size 8.0 endotracheal tube, and I performed lavage and suctioning of the mucous plugs from the right upper lobe and right mainstem bronchus. This was done in the ICU. Patient was kept on mechanical ventilation, and I recommended we continue antibiotics, bronchodilators, we'll address his interstitial support, and I spent quite some time with his and his daughter explaining his clinical condition. Patient is presently full code, however the and daughter expressed to me that no long-term ventilatory support, based on his previously expressed wishes. Chest x-ray post intubation and lavage showed adequate expansion of the right upper lobe, continues to have opacified lower portion of the right lung because of previous bilobectomy on this patient. Labs were reviewed including ABG post intubation showed a pO2 of 70 pCO2 of 40 pH of 7.39 and this was on assist control rate of 12, tidal volume of 500, FiO2 of 50%, and PEEP of 5. Objective - Vital Signs Vital signs: Vital Signs Temp 99.2 F 09/08/17 12:42 Pulse 103 H 09/08/17 12:42 Resp 16 09/08/17 12:42 BP 91/62 09/08/17 12:42 Pulse Ox 98 09/08/17 12:42 Intake & Output 09/07/17 09/08/17 09/08/17 18:59 06:59 18:59 Intake Total 597 330 316.167 Output Total 175 275 Balance 422 55 316.167 Weight 142.5 kg Intake: IV 160 100 Sodium Chloride 0.9% 1, 160 000 ml @ 20 mls/hr IV . Q24H [facility] Rx#:[id number] Intake, IV Titration 50 16.167 Amount Diltiazem 125 mg In 16.167 Sodium Chloride 0.9% 100 ml @ 10 MG/HR 10 mls/hr IV .[id number] [facility] Rx#: [id number] Piperacillin-Tazobactam 3 50 .375 gm In Dextrose/Water 1 50ml.bag @ 12.5 mls/hr IVPB Q8H [facility] Rx#: [id number] Oral 597 120 200 Output: Urine 175 275 Other: Voiding Method Urinal Urinal # Voids 1 # Bowel Movements 0 - Exam Physical Exam: Revealed a 67-year-old white male, obese, in moderate respiratory distress on BiPAP which was placed prior to intubation and bronchoscopy. HEENT:[Neck is supple.] [No neck masses.] [No thyromegaly.] [No JVD.] Chest: [Diminished breath sounds on the right side, left side is relatively clear.. Cardiac Exam: Distant S1 and S2, no S3 gallop, no murmur.] Abdomen: [Obese, Soft, nontender, no megaly, no rebound, no guarding, normal bowel sounds.] Extremities: [No clubbing, trace bipedal edema, no cyanosis.] Chronic venous stasis changes. Neurological Exam: [No focal neurologic deficit. Except the patient seems to be generally weak.] Musculoskeletal: Continues to have difficulty in the range of motion of the right hip, pain with any movement of the hip. Otherwise unremarkable. Skin: Chronic venous stasis noted in the lower extremities and 1+ bipedal edema noted. Psychiatric: Normal mental status exam, normal affect, no mood changes. - Labs CBC & Chem 7: 09/07/17 05:31 09/08/17 05:48 Labs: Abnormal Lab Results - Last 24 Hours (Table) 09/07/17 09/07/17 09/07/17 Range/Units 05:31 16:38 21:07 ABG pO2 (83-108) mmHg ABG Total CO2 (19-24) mmol/L BUN (9-20) mg/dL Creatinine (0.66-1.25) mg/dL Glucose (74-99) mg/dL POC Glucose (mg/dL) 160 H 180 H (75-99) mg/dL Iron 17 L (65-175) ug/dL TIBC 175 L (228-460) ug/dL Iron Saturation 9.71 L (15.00-50.00) 09/08/17 09/08/17 09/08/17 Range/Units 05:48 05:59 09:55 ABG pO2 (83-108) mmHg ABG Total CO2 (19-24) mmol/L BUN 38 H (9-20) mg/dL Creatinine 1.80 H (0.66-1.25) mg/dL Glucose 122 H (74-99) mg/dL POC Glucose (mg/dL) 121 H 123 H (75-99) mg/dL Iron (65-175) ug/dL TIBC (228-460) ug/dL Iron Saturation (15.00-50.00) 09/08/17 Range/Units 11:41 ABG pO2 70 L (83-108) mmHg ABG Total CO2 25 H (19-24) mmol/L BUN (9-20) mg/dL Creatinine (0.66-1.25) mg/dL Glucose (74-99) mg/dL POC Glucose (mg/dL) (75-99) mg/dL Iron (65-175) ug/dL TIBC (228-460) ug/dL Iron Saturation (15.00-50.00) Microbiology - Last 24 Hours (Table) 09/04/17 12:00 Fungal Culture - Preliminary Bronchial Washings - Right Hillary albicans Assessment and Plan Plan: #1 acute respiratory failure secondary to right upper lobe collapse, atrial fibrillation with RVR requiring Cardizem, history of systolic congestive heart failure. #2 Atrial fibrillation and rapid ventricular response requiring Cardizem drip #3 Acute right lung pneumonia, secondary to pseudomonas aeruginosa. Requiring multiple bronchoscopies for recurrent right mainstem mucous plugging and right upper lobe mucous plugging. #4 Acute hypoxic respiratory failure secondary to above. #5 Diabetes mellitus, type II. #6 History of CVA. #7 Hypertension. #8 History of lung, non-small cell carcinoma. History of right lower lobectomy #9 Hyperlipidemia. #10 Renal insufficiency. #11 Ventricular tachycardia. #12 Acute fall status post with right hip pain, negative for fracture. Recommendation: Patient will be kept on mechanical ventilation, continue antibiotics as ordered by Dr. Hardy, nasogastric tube was placed, Cortez catheter was placed, treat his atrial fibrillation with Cardizem drip, treat hypotension with norepinephrine drip, no plans to extubate the patient over the weekend, will continue to follow closely. Had a long discussion with his daughter and at bedside, and they both expressed to me that they would not wish long-term course of mechanical ventilation based on his previously expressed wishes. We'll continue to follow. Critical care time is 40 minutes excluding time spent on procedures/bronchoscopy and intubation. Time with Patient: Greater than 30
--- NOTE | 2017-09-08 15:12 | PCN ---
PROCEDURE NOTE OPERATIVE REPORT: Intubation over a bronchoscope. PREOPERATIVE DIAGNOSES: Acute impending respiratory failure secondary to right upper lobe collapse, supraventricular tachycardia, and hypotension. POSTOPERATIVE DIAGNOSES: Acute impending respiratory failure secondary to right upper lobe collapse, supraventricular tachycardia, and hypotension. ANESTHESIA USED: Patient was given IV conscious sedation in the form of propofol. Please refer to LABORATORY INSPECTOR documentation. PROCEDURE: The patient was placed in a supine position. We were monitoring his O2 saturation, blood pressure was also intermittently monitored, and cardiac rhythm was continuously monitored. After adequate IV conscious sedation, patient was already on a high-flow nasal cannula. I was able to insert the bronchoscope with the endotracheal tube on the bronchoscope, and I was able to visualize the vocal cords. As soon as I cannulated the vocal cords, the endotracheal tube, which was a size 8.0, was advanced over the bronchoscope down to the area of the 2/3 of the trachea. I was able to visually place the tip of the bronchoscope about 3 cm above the michelle. The cuff was inflated, and the patient was Ambu bagged, and we connected that to mechanical ventilation. Procedure was well tolerated. No evidence of any immediate. MMODL / IJN: [id number] /
[2017-09-08] MEDS: PROPOFOL 1,000 MG/100 ML VIAL IV SCH ×3 (15:16→23:25)
--- NOTE | 2017-09-08 15:20 | PCN ---
PROCEDURE NOTE OPERATIVE REPORT: Bronchoscopy and a bronchoalveolar lavage of the right upper lobe. PREOPERATIVE DIAGNOSES: 1. Impending respiratory failure. 2. Right upper lobe collapse. 3. Mucous plugs involving the right mainstem bronchus and the right upper lobe/recurrent. POSTOPERATIVE DIAGNOSES: 1. Impending respiratory failure. 2. Right upper lobe collapse. 3. Mucous plugs involving the right mainstem bronchus and the right upper lobe/recurrent. ANESTHESIA USED: The patient was given IV conscious sedation by [employer]ENDER. PROCEDURE: The patient was earlier intubated with the use of the bronchoscope, and I was able to go back with the bronchoscope through the adapter of the endotracheal tube. In the meantime, the patient was being Ambu bagged. As I went down to the distal trachea, I visualized plug involving the right mainstem bronchus and involving the right upper lobe. Suctioning and lavage was done until all the mucous plugging was cleared from the right mainstem bronchus and right upper lobe. Left side was noted to be relatively unremarkable. The procedure was well tolerated. No evidence of any immediate complications. Lavage fluid was sent only for cultures. After the procedure, patient was connected to mechanical ventilation. Throughout the whole procedure, patient was being monitored via pulse oximetry, blood pressure was intermittently monitored and cardiac rhythm was monitored. Again, no evidence of any immediate complications. The procedure was well tolerated. MMODL / IJN: [id number] /
[2017-09-08] MEDS ORDERED: SODIUM CHLORIDE 0.9% 1,000 ML IV ONE (18:43)
[2017-09-08 19:05] LABS: Glucose,Whole Blood 161 mg/dL (75-99)
--- NOTE | 2017-09-08 20:33 | P.PN ---
Subjective Progress Note Date: 09/08/17 Principal diagnosis: Respiratory failure 67-year-old male who is well-known to the infectious disease service with as many hospitalizations as well as his hidradenitis. He's had a couple hospitalizations in the last several months that included atrial fibrillation with nonsustained V. tach. He has underlying cardiac murmur. He's had vertigo and acute renal failure. He's had some time at the extended care facility in the past year but is now home Doing relatively well under the care of his . He was hospitalized earlier this year with a bout of congestive heart failure and is in relatively well since that time. The. The patient was bathing and suffered a fall and now presents with severe right sided hip pain. He's been evaluated by orthopedics. The hidradenitis is now being treated with Humira injections at home. This is on Fridays. This has been occurring for the last couple of months now. There is been decreasing amount of drainage. His skin is becoming less erythematous and inflamed. The amount of drainage is improving The family is pleased that there is showing some improvement given the many year history of lack of improvement. However was still must apply large amounts of dressings on a daily basis to contain his drainage. The patient never became progressively more short of breath. Was transferred to intensive care unit. He's been seen by pulmonary and underwent bronchoscopy for removal of large mucous plugging to the right lung. Patient remains on BiPAP but is more stable at this time. Antimicrobial therapy was initiated with concerns to pneumonia with this pulmonary process. Cultures have revealed Moraxella and pseudomonas aeruginosa He has minimal improved pain today. Pulmonary status again was giving him difficulties, and again had bronchoscopy for the seventh time to remove more mucous plugs. Doing well after the bronchoscopy. However is certainly with weakness overall. His had significant amount of sputum production. He had a large mucous plug that he was able to express by the care of his family and a Yonker suction. The patient is starting to show some mild improvement. And there is discussion about possible transfer to select specialty. Family however is discontent with this solution and so far away. They are very close family and they will cause some hardship for them to be of the visit him. We discussed there are other options. Initiation of therapy with vancomycin is occurred. The patient however is having significant worsening of his status today. He had marked mucous plugging again occurring to the right mainstem bronchus. He also had onset of atrial fibrillation with rapid ventricular response with hemodynamic instability. He has now been intubated sedated and mechanically ventilated. Has required Cardizem and vasopressor therapy. Objective - Vital Signs Vital signs: Vital Signs Temp 97.8 F 09/08/17 20:00 Pulse 78 09/08/17 20:00 Resp 18 09/08/17 20:00 BP 96/63 09/08/17 20:00 Pulse Ox 100 09/08/17 20:00 Intake & Output 09/08/17 09/08/17 09/09/17 06:59 18:59 06:59 Intake Total 330 1980.230 Output Total 275 660 20 Balance 55 1320.230 -20 Weight 142.5 kg 142.5 kg Intake: IV 160 1600 Sodium Chloride 0.9% 1, 160 1000 000 ml @ 20 mls/hr IV . Q24H [facility] Rx#:[id number] Vancomycin 2,000 mg In 500 Sodium Chloride 0.9% 500 ml @ 167 mls/hr IVPB Q24H [facility] Rx#:[id number] Intake, IV Titration 50 180.230 Amount Diltiazem 125 mg In 16.167 Sodium Chloride 0.9% 100 ml @ 10 MG/HR 10 mls/hr IV .[id number] [facility] Rx#: [id number] Norepinephrin 16 mg-0.9% 164.063 Ns Pmx 16 mg In 250 ml @ Titrate IV .Q0M [facility] Rx#: [id number] Piperacillin-Tazobactam 3 50 .375 gm In Dextrose/Water 1 50ml.bag @ 12.5 mls/hr IVPB Q8H [facility] Rx#: [id number] Oral 120 200 Output: Gastric Drainage 500 Urine 275 160 20 Other: Voiding Method Urinal Indwelling Catheter # Voids 1 - Exam Pleasant 67-year-old gentleman who suffers from obesity who is now intubated sedated and mechanically ventilated HEENT: Anicteric conjunctiva are pink and moist nasal mucosa grossly intact without significant lesions, there is no thrush. Neck: The neck is supple without significant lymphadenopathy or thyromegaly. Lungs: There is symmetrical air entry with evidence of crackles at the the right base Heart: Irregular with an audible S1 and S2 no S3 soft S4 There is no significant murmur click or rub, PMI was nondisplaced. Abdomen: Obese, Positive bowel sounds soft and nontender without palpable masses or organomegaly. There was no guarding or rebound. Extremities: The upper extremities have excellent pulses they are symmetric, no significant petechiae or telangiectasia. No splinter hemorrhages were noted. The left lower extremity is without significant tenderness at this time. Of note he is able to move it himself with only minimal discomfort. There is at the chronic drainage without change from last evaluation. He has extensive areas of drainage on the buttocks bilaterally and inner thighs. Neuro: Sedated - Labs CBC & Chem 7: 09/07/17 05:31 09/08/17 05:48 Labs: Abnormal Lab Results - Last 24 Hours (Table) 09/07/17 09/07/17 09/08/17 Range/Units 05:31 21:07 05:48 ABG pO2 (83-108) mmHg ABG Total CO2 (19-24) mmol/L BUN 38 H (9-20) mg/dL Creatinine 1.80 H (0.66-1.25) mg/dL Glucose 122 H (74-99) mg/dL POC Glucose (mg/dL) 180 H (75-99) mg/dL Iron 17 L (65-175) ug/dL TIBC 175 L (228-460) ug/dL Iron Saturation 9.71 L (15.00-50.00) 09/08/17 09/08/17 09/08/17 Range/Units 05:59 09:55 11:41 ABG pO2 70 L (83-108) mmHg ABG Total CO2 25 H (19-24) mmol/L BUN (9-20) mg/dL Creatinine (0.66-1.25) mg/dL Glucose (74-99) mg/dL POC Glucose (mg/dL) 121 H 123 H (75-99) mg/dL Iron (65-175) ug/dL TIBC (228-460) ug/dL Iron Saturation (15.00-50.00) 09/08/17 Range/Units 18:45 ABG pO2 (83-108) mmHg ABG Total CO2 (19-24) mmol/L BUN (9-20) mg/dL Creatinine (0.66-1.25) mg/dL Glucose (74-99) mg/dL POC Glucose (mg/dL) 161 H (75-99) mg/dL Iron (65-175) ug/dL TIBC (228-460) ug/dL Iron Saturation (15.00-50.00) Microbiology - Last 24 Hours (Table) 09/04/17 12:00 Fungal Culture - Preliminary Bronchial Washings - Right Hillary albicans Laboratory Results WBC 16.2 k/uL (3.8-10.6) H 09/07/17 05:31 RBC 3.36 m/uL (4.30-5.90) L 09/07/17 05:31 Hgb 8.6 gm/dL (13.0-17.5) L 09/07/17 05:31 Hct 30.0 % (39.0-53.0) L 09/07/17 05:31 MCV 89.4 fL (80.0-100.0) 09/07/17 05:31 MCH 25.6 pg (25.0-35.0) 09/07/17 05:31 MCHC 28.7 g/dL (31.0-37.0) L 09/07/17 05:31 RDW 18.2 % (11.5-15.5) H 09/07/17 05:31 Plt Count 380 k/uL (150-450) 09/07/17 05:31 Neutrophils % 78 % 09/07/17 05:31 Lymphocytes % 10 % 09/07/17 05:31 Monocytes % 6 % 09/07/17 05:31 Eosinophils % 2 % 09/07/17 05:31 Basophils % 0 % 09/07/17 05:31 Neutrophils # 12.6 k/uL (1.3-7.7) H 09/07/17 05:31 Lymphocytes # 1.6 k/uL (1.0-4.8) 09/07/17 05:31 Monocytes # 1.0 k/uL (0-1.0) 09/07/17 05:31 Eosinophils # 0.4 k/uL (0-0.7) 09/07/17 05:31 Basophils # 0.1 k/uL (0-0.2) 09/07/17 05:31 Hypochromasia Marked 09/07/17 05:31 Anisocytosis Slight 09/07/17 05:31 Sample Site rt radial 09/08/17 11:41 ABG pH 7.39 (7.35-7.45) 09/08/17 11:41 ABG pCO2 40 mmHg (35-45) 09/08/17 11:41 ABG pO2 70 mmHg (83-108) L 09/08/17 11:41 ABG HCO3 24 mmol/L (21-25) 09/08/17 11:41 ABG Total CO2 25 mmol/L (19-24) H 09/08/17 11:41 ABG O2 Saturation 94.0 % (94-97) 09/08/17 11:41 ABG Base Excess -0.5 mmol/L 09/08/17 11:41 FiO2 50 % 09/08/17 11:41 Sodium 138 mmol/L (137-145) 09/08/17 05:48 Potassium 5.1 mmol/L (3.5-5.1) 09/08/17 05:48 Chloride 103 mmol/L (98-107) 09/08/17 05:48 Carbon Dioxide 28 mmol/L (22-30) 09/08/17 05:48 Anion Gap 7 mmol/L 09/08/17 05:48 BUN 38 mg/dL (9-20) H 09/08/17 05:48 Creatinine 1.80 mg/dL (0.66-1.25) H 09/08/17 05:48 Est GFR (MDRD) Af Amer 46 (>60 ml/min/1.73 sqM) 09/08/17 05:48 Est GFR (MDRD) Non-Af 38 (>60 ml/min/1.73 sqM) 09/08/17 05:48 Glucose 122 mg/dL (74-99) H 09/08/17 05:48 POC Glucose (mg/dL) 161 mg/dL (75-99) H 09/08/17 18:45 POC Glu Processing Specialist ID Elizabeth Cuh 09/08/17 18:[address] Glu mg/dL 143 mg/dL 08/16/17 07:03 Hemoglobin A1c 6.6 % (4.2-6.1) H 08/16/17 07:03 Calcium 8.6 mg/dL (8.4-10.2) 09/08/17 05:48 Phosphorus 5.4 mg/dL (2.5-4.5) H 08/31/17 04:23 Magnesium 2.1 mg/dL (1.6-2.3) 09/07/17 05:31 Iron 17 ug/dL (65-175) L 09/07/17 05:31 TIBC 175 ug/dL (228-460) L 09/07/17 05:31 Iron Saturation 9.71 (15.00-50.00) L 09/07/17 05:31 Ferritin 313.6 ng/mL (22.0-322.0) 09/07/17 05:31 Total Bilirubin 0.2 mg/dL (0.2-1.3) 08/31/17 04:23 AST 12 U/L (17-59) L 08/31/17 04:23 ALT 30 U/L (21-72) 08/31/17 04:23 Alkaline Phosphatase 104 U/L (38-126) 08/31/17 04:23 Total Protein 7.0 g/dL (6.3-8.2) 08/31/17 04:23 Albumin 2.7 g/dL (3.5-5.0) L 08/31/17 04:23 Vitamin D 25-Hydroxy 31.9 ng/mL (30.0-100.0) 09/06/17 05:27 PTH Intact 22.7 pg/mL (14.0-72.0) 09/06/17 05:27 Cortisol 9 ug/dL 08/17/17 04:38 Urine Color Yellow 09/04/17 02:00 Urine Appearance Cloudy (Clear) 09/04/17 02:00 Urine pH 5.5 (5.0-8.0) 09/04/17 02:00 Ur Specific [place] 1.014 (1.001-1.035) 09/04/17 02:00 Urine Protein 1+ (Negative) H 09/04/17 02:00 Urine Glucose (UA) Negative (Negative) 09/04/17 02:00 Urine Ketones Negative (Negative) 09/04/17 02:00 Urine Blood Small (Negative) H 09/04/17 02:00 Urine Nitrite Negative (Negative) 09/04/17 02:00 Urine Bilirubin Negative (Negative) 09/04/17 02:00 Urine Urobilinogen <2.0 mg/dL (<2.0) 09/04/17 02:00 Ur Leukocyte Esterase Small (Negative) H 09/04/17 02:00 Urine RBC 2 /hpf (0-5) 09/04/17 02:00 Urine WBC 36 /hpf (0-5) H 09/04/17 02:00 Cellular Casts 1 /lpf (0) 09/04/17 02:00 Hyaline Casts 3 /lpf (0-2) H 08/14/17 23:45 Granular Casts 175 /lpf (0) 09/04/17 02:00 Urine Mucus Rare /hpf (None) H 08/14/17 23:45 Urine Yeast (Budding) Few /hpf (None) H 09/04/17 02:00 Fluid Source Bronchial Wash 08/25/17 11:00 Fluid Color Red 08/25/17 11:00 Fluid Appearance Bloody 08/25/17 11:00 Fluid RBC 18336 /uL 08/25/17 11:00 Fluid Nucleated Cells 6000 /uL 08/25/17 11:00 Fluid Polynuclear WBCs 99 % 08/25/17 11:00 Fluid Mononuclear WBCs 1 % 08/25/17 11:00 Virus Source See Below 08/25/17 11:00 Viral Test See Below 08/25/17 11:00 Virus Analysis Interp See Below 08/25/17 11:00 Microbiology 09/04/17 12:00 Bronchial Washings - Right Fungal Culture - Preliminary Hillary albicans 09/04/17 12:00 Bronchial Washings - Right Gram Stain - Final 09/04/17 12:00 Bronchial Washings - Right Bronchial Washings Culture - Final Corynebacterium striatum 08/25/17 11:00 Bronchial Washings - Right Acid Fast Bacilli Smear - Final 08/25/17 11:00 Bronchial Washings - Right Acid Fast Bacilli Culture - Preliminary 09/04/17 08:20 Urine,Clean Catch Urine Culture - Final 09/01/17 14:46 Bronchoalviolar Lavage - Right Gram Stain - Final 09/01/17 14:46 Bronchoalviolar Lavage - Right Bronchial Washings Culture - Final Corynebacterium striatum 08/25/17 11:00 Bronchial Washings - Right Fungal Culture - Preliminary 08/25/17 11:00 Bronchial Washings - Right Gram Stain - Final 08/25/17 11:00 Bronchial Washings - Right Bronchial Washings Culture - Final Corynebacterium striatum 08/23/17 18:27 Stool Stool Culture - Final - Imaging and Cardiology Chest x-ray: report reviewed (Postintubation improved aeration residual right upper lobe) Assessment and Plan (1) Fall Current Visit: Yes Status: Acute Priority: High Code(s): W19.XXXA - UNSPECIFIED FALL, INITIAL ENCOUNTER SNOMED Code(s): 5336852 (2) Acute right hip pain Current Visit: Yes Status: Acute Code(s): M25.551 - PAIN IN RIGHT HIP SNOMED Code(s): 50854201 (3) Rib pain on left side Current Visit: Yes Status: Acute Code(s): R07.81 - PLEURODYNIA SNOMED Code (s): 028512831 (4) Hidradenitis suppurativa Narrative/Plan: 67-year-old male has multiple medical troubles including his history of squamous cell lung cancer fifth being monitored by oncology. He is followed in the infectious disease office for the treatment of his hidradenitis which is being treated currently with Humira. There has been some improvement of his significant disease state but not resolution. The last office visit the and I agreed that we would continue treatment at least until the next quarter. He tolerated this very well. He has had no worsening of his anemia or renal failure . While in hospital his Humira is on hold. Continues to have significant pain to the right hip because of the fall. Orthopedics is following. Orthopedics apparently does not believe that there is a fracture and just has a hyperextension injury. And they will follow as needed. Underwent another bronchoscopy today for his recurrent mucus plugging For antimicrobial therapy with the isolation of the Moraxella and Pseudomonas, ceftazidime was initiated at 2 g IV piggyback every 8 hours He is much more comfortable today from the right hip pain. As has noted dressings are not needed just have him on a drainage had and allow the drainage from his large draining sinus tracts to be absorbed into the pads. He's had his seventh bronchoscopy and is doing well postop. He is doing well with current antimicrobial therapy, pulmonary toileting and positioning. We'll plan at least 10-14 days of ceftaz and after his last bronch and the PICC line has been placed Patient's Humira is on hold and this will be discussed and outpatient visits if this is be prudent for further use at this time with the biggest concerns will be his overall status. Requiring frequent bronchoscopies is problematic. The pulmonary critical care team has discussed the possibility of a transfer to select specialty. He appears to be too complex for a standard extended care facility. The family has noted is somewhat discontent with this because of such a far site. They would have difficulty visiting him. We discussed other options doing this at this time. He has now been hospitalized for 21 days with very little improvement of his status. He has underlying lung disease and is a history of lung carcinoma from 5 years ago status post resection. He appears to have ongoing worsening of his status and is having difficulty recovering from the current bout of pneumonia. It is related to family that the last 3 cultures have all failed to show the Pseudomonas. It does appear that the infection itself has done better. However continues to have ongoing great difficulties with his pulmonary status. If they do not believe that is possible for him to go to select specialty, and they do not believe he is going to improve any further then there will be option for palliative care and hospice. As noted there was concerns of potential aspiration as well as the corynebacterium species and antimicrobial therapy was altered to Zosyn and vancomycin.The improvement at this time. The patient's status is declined today. He required intubation and sedation with mechanical ventilation. Bronchoscopy performed again with extensive mucous plugging foam. Post-bronchoscopy evidence of much improved aeration to the residual right upper lobe. Patient a developed atrial fibrillation with rapid ventricular response and became hemodynamically unstable. This has required utilization of fluids and vasopressor therapy. The family will monitor his progress, however do not desire long-term ventilatory support. Current Visit: Yes Status: Acute Code(s): L73.2 - HIDRADENITIS SUPPURATIVA SNOMED Code(s): 95516879
[2017-09-08] MEDS ORDERED: FUROSEMIDE 10 MG/ML 10 ML VIAL IV STA (20:41)
[2017-09-08] MEDS: CHLORHEXIDINE GLUCONATE 15 ML CUP MUCOUS MEM SCH (21:32)
[2017-09-08] MEDS: MULTIVITAMINS, THERA 1 EACH TAB PO SCH (21:42)
[2017-09-08 21:46] LABS: Glucose,Whole Blood 146 mg/dL (75-99)
--- NOTE | 2017-09-08 22:12 | P.PN ---
Subjective Progress Note Date: 09/08/17 the patient has already been seen in consult this admission. A repeat evaluation was requested by the patient's . The patient is followed by our service, for his history of lung cancer, as well as anemia of chronic kidney disease. The patient has had a complicated course, including respiratory failure today due to mucous plugging, requiring intubation as well as elective bronchoscopy to suck out mucous plugs. He is hypotensive and currently on pressors. No obvious bleeding has been noted. Hemoglobin has been mostly stable in the 9-10 range. Today it was down to 8.6. In the outpatient setting, when stable, hemoglobin is usually in the 10-11 range. Objective - Vital Signs Vital signs: Vital Signs Temp 97.8 F 09/08/17 20:00 Pulse 78 09/08/17 20:00 Resp 18 09/08/17 20:00 BP 96/63 09/08/17 20:00 Pulse Ox 100 09/08/17 20:00 Intake & Output 09/08/17 09/08/17 09/09/17 06:59 18:59 06:59 Intake Total 330 2080.230 70 Output Total 275 660 35 Balance 55 1420.230 35 Weight 142.5 kg 142.5 kg Intake: IV 160 1600 70 Piperacillin-Tazobactam 3 50 .375 gm In Dextrose/Water 1 50ml.bag @ 12.5 mls/hr IVPB Q8H [facility] Rx#: [id number] Sodium Chloride 0.9% 1, 20 000 ml @ 125 mls/hr IV . Q8H [facility] Rx#:[id number] Sodium Chloride 0.9% 1, 160 1000 000 ml @ 20 mls/hr IV . Q24H [facility] Rx#:[id number] Vancomycin 2,000 mg In 500 Sodium Chloride 0.9% 500 ml @ 167 mls/hr IVPB Q24H [facility] Rx#:[id number] Intake, IV Titration 50 280.230 Amount Diltiazem 125 mg In 16.167 Sodium Chloride 0.9% 100 ml @ 10 MG/HR 10 mls/hr IV .[id number] [facility] Rx#: [id number] Norepinephrin 16 mg-0.9% 164.063 Ns Pmx 16 mg In 250 ml @ Titrate IV .Q0M [facility] Rx#: [id number] Piperacillin-Tazobactam 3 50 .375 gm In Dextrose/Water 1 50ml.bag @ 12.5 mls/hr IVPB Q8H [facility] Rx#: [id number] Propofol 1,000 mg In 100 100 ml @ Titrate IV .Q0M [facility] Rx#:[id number] Oral 120 200 Tube Feeding 0 Output: Gastric Drainage 500 Urine 275 160 35 Other: Voiding Method Urinal Indwelling Catheter # Voids 1 - Constitutional Constitutional Comment(s): Sedated, on vent - EENT Eyes: Present: PERRLA - Respiratory Respiratory: right: diminished - Cardiovascular Rhythm: irregularly irregular Heart sounds: normal: S1, S2 Abnormal Heart Sounds: Present: systolic murmur - Gastrointestinal General gastrointestinal: Present: decreased bowel sounds, soft - Integumentary Integumentary: Present: normal - Neurologic Neurologic Comment(s): sedated, on vent - Labs CBC & Chem 7: 09/07/17 05:31 09/08/17 05:48 Labs: Abnormal Lab Results - Last 24 Hours (Table) 09/07/17 09/08/17 09/08/17 Range/Units 05:31 05:48 05:59 ABG pO2 (83-108) mmHg ABG Total CO2 (19-24) mmol/L BUN 38 H (9-20) mg/dL Creatinine 1.80 H (0.66-1.25) mg/dL Glucose 122 H (74-99) mg/dL POC Glucose (mg/dL) 121 H (75-99) mg/dL Iron 17 L (65-175) ug/dL TIBC 175 L (228-460) ug/dL Iron Saturation 9.71 L (15.00-50.00) 09/08/17 09/08/17 09/08/17 Range/Units 09:55 11:41 18:45 ABG pO2 70 L (83-108) mmHg ABG Total CO2 25 H (19-24) mmol/L BUN (9-20) mg/dL Creatinine (0.66-1.25) mg/dL Glucose (74-99) mg/dL POC Glucose (mg/dL) 123 H 161 H (75-99) mg/dL Iron (65-175) ug/dL TIBC (228-460) ug/dL Iron Saturation (15.00-50.00) 09/08/17 Range/Units 21:39 ABG pO2 (83-108) mmHg ABG Total CO2 (19-24) mmol/L BUN (9-20) mg/dL Creatinine (0.66-1.25) mg/dL Glucose (74-99) mg/dL POC Glucose (mg/dL) 146 H (75-99) mg/dL Iron (65-175) ug/dL TIBC (228-460) ug/dL Iron Saturation (15.00-50.00) Microbiology - Last 24 Hours (Table) 09/08/17 10:30 Bronchial Washings Culture - Preliminary Bronchial Washings - Right 09/04/17 12:00 Fungal Culture - Preliminary Bronchial Washings - Right Hillary albicans Assessment and Plan (1) Anemia in chronic kidney disease Narrative/Plan: the patient is currently on Procrit as an outpatient for his anemia of chronic kidney disease. On that hemoglobin has been mostly satisfactory in the T10-11 range. When the patient has any additional acute illness, hemoglobin does tend to drop. During this admission hemoglobin has been in the 9 range and is currently 8.6. This is due to added myelosuppression from his acute illness. Continue Procrit weekly at the same dose. Transfuse as needed if hemoglobin falls below 7. Presuming his acute condition resolves in a satisfactory manner, his hemoglobin would be expected to return back to baseline Current Visit: No Status: Chronic Priority: Low Code(s): N18.9 - CHRONIC KIDNEY DISEASE, UNSPECIFIED; D63.1 - ANEMIA IN CHRONIC KIDNEY DISEASE SNOMED Code(s): 898989919 (2) History of lung cancer Narrative/Plan: the patient has been followed regularly after resection of his lung cancer , with no evidence of recurrence. Current Visit: No Status: Acute Code(s): Z85.118 - PERSONAL HISTORY OF MALIGNANT NEOPLASM OF BRONCHUS AND LUNG SNOMED Code(s): 485689310
[2017-09-08] MEDS: SODIUM CHLORIDE 0.9% 1,000 ML IV SCH (23:33)
[2017-09-09] MEDS: PROPOFOL 1,000 MG/100 ML VIAL IV SCH ×6 (01:34→23:17)
[2017-09-09] MEDS: NOREPINEPHRIN 16 MG-0.9%NS PMX 16 MG/250 ML ML IV SCH (03:05)
[2017-09-09 04:51] LABS: Anisocytosis Slight; CH 24.9; CHCM 27.9; HCT 32.7 % (39.0-53.0); HDW 2.54; HGB 9.3 gm/dL (13.0-17.5); Hypochromasia Marked; MCH 25.5 pg (25.0-35.0); MCHC 28.4 g/dL (31.0-37.0); MCV 89.7 fL (80.0-100.0); Mean Platelet Volume 7.1; RBC 3.65 m/uL (4.30-5.90); RDW 16.7 % (11.5-15.5)
[2017-09-09] MEDS: DILTIAZEM 125 MG in SODIUM CHLORIDE 0.9% 100 ML IV SCH ×3 (04:52→23:30)
[2017-09-09 05:01] LABS: Calcium 8.4 mg/dL (8.4-10.2); Magnesium 1.8 mg/dL (1.6-2.3); Phosphorous 6.9 mg/dL (2.5-4.5); Potassium 5.4 mmol/L (3.5-5.1)
[2017-09-09 05:02] LABS: WBC 30.7 k/uL (3.8-10.6)
--- NOTE | 2017-09-09 06:51 | XR ---
EXAMINATION TYPE: XR chest 1V portable DATE OF EXAM: 09/09/2017 HISTORY: Tube placement. REFERENCE: Previous study dated 09/08/2017. FINDINGS: The patient is ET tube and NG tube remain in place, unchanged in appearance. Heart size is obscured. There is diffuse opacity right hemithorax. Aeration is improved slightly. The left lung appears clear. Left pleural spaces clear. IMPRESSION: SLIGHT IMPROVEMENT IN THE APPEARANCE OF THE RIGHT LUNG.
[2017-09-09] MEDS ORDERED: FUROSEMIDE 10 MG/ML 10 ML VIAL IV STA (07:41)
[2017-09-09] MEDS: IPRATROPIUM-ALBUTEROL 3 ML NEB INHALATION SCH ×4 (08:00→19:28)
[2017-09-09 08:43] LABS: ABG Base Excess 1.4 mmol/L; ABG HCO3 26 mmol/L (21-25); ABG PCO2 50 mmHg (35-45); ABG PH 7.35 (7.35-7.45); ABG PO2 90 mmHg (83-108); ABG TCO2 28 mmol/L (19-24)
[2017-09-09] MEDS: PIPERACILLIN-TAZOBACTAM 3.375 GM in DEXTROSE/WATER 1 50ML.BAG IVPB SCH ×3 (08:53→23:13)
[2017-09-09] MEDS: MEGESTROL 400 MG/10 ML CUP PO SCH (08:54)
[2017-09-09] MEDS: guaiFENesin 600 MG TABLET.ER PO SCH ×2 (08:54→22:09)
[2017-09-09] MEDS: ALLOPURINOL 100 MG TAB PO SCH (08:54)
[2017-09-09] MEDS: METOPROLOL TARTRATE 50 MG TAB PO SCH ×2 (08:55→22:09)
[2017-09-09] MEDS: LINAGLIPTIN 5 MG TABLET PO SCH (08:56)
[2017-09-09] MEDS: CITALOPRAM HYDROBROMIDE 20 MG TAB PO SCH (08:56)
[2017-09-09] MEDS: CHLORHEXIDINE GLUCONATE 15 ML CUP MUCOUS MEM SCH ×2 (08:57→22:08)
[2017-09-09] MEDS: CALCIUM CARB-VIT D 500MG-200UN 1 EACH TAB PO SCH ×2 (08:57→17:36)
[2017-09-09] MEDS: predniSONE 10 MG TAB PO SCH (09:10)
[2017-09-09] MEDS: BACITRACIN 500 UNIT/GM OINT 28.4 GM TUBE TOPICAL SCH (09:11)
[2017-09-09 09:15] LABS: Glucose,Whole Blood 117 mg/dL (75-99)
--- NOTE | 2017-09-09 09:19 | P.PN ---
Subjective This is a 67-year-old male is followed up because of chronic kidney disease and acute kidney injury. He came in after a fall on 08/14/2017. He had acute kidney injury from prerenal. He has been having difficulties with collapsed lung on the right side frequently from mucus plugging and has had 9 bronchoscopy so for, in spite of which his left lung remains almost completely collapsed. He remains on the vent. Yesterday he was given IV fluids because of hypotension and then subsequently was given Lasix because of concerns about volume overload. He remains on the vent on 40% FiO2. His pCO2 this morning is 50. He is on levo fed. His blood pressure remains low in the 90s to 100 range His 24-hour urine is only 400 mL and has gone down over the last 2 days from 1300 mL 240 and 50 and 400 today. Is known with known small cell CA, COPD, obesity, previous lobectomy for lung cancer about 5 years ago, chronic atrial fibrillation. Objective - Vital Signs Vital signs: Vital Signs Temp 98.9 F 09/09/17 04:00 Pulse 89 09/09/17 08:57 Resp 19 09/09/17 00:00 BP 98/57 09/09/17 04:30 Pulse Ox 100 09/09/17 04:30 Intake & Output 09/08/17 09/09/17 09/09/17 18:59 06:59 18:59 Intake Total 2080.230 721.336 174.554 Output Total 660 940 44 Balance 1420.230 -218.664 130.554 Weight 142.5 kg 154 kg Intake: IV 1600 320 60 Piperacillin-Tazobactam 3 100 .375 gm In Dextrose/Water 1 50ml.bag @ 12.5 mls/hr IVPB Q8H [facility] Rx#: [id number] Sodium Chloride 0.9% 1, 20 000 ml @ 125 mls/hr IV . Q8H [facility] Rx#:[id number] Sodium Chloride 0.9% 1, 1000 200 60 000 ml @ 20 mls/hr IV . Q24H [facility] Rx#:[id number] Vancomycin 2,000 mg In 500 Sodium Chloride 0.9% 500 ml @ 167 mls/hr IVPB Q24H [facility] Rx#:[id number] Intake, IV Titration 280.230 401.336 114.554 Amount Diltiazem 125 mg In 16.167 88.916 15.267 Sodium Chloride 0.9% 100 ml @ 10 MG/HR 10 mls/hr IV .[id number] [facility] Rx#: [id number] Norepinephrin 16 mg-0.9% 164.063 119.687 Ns Pmx 16 mg In 250 ml @ Titrate IV .Q0M [facility] Rx#: [id number] Propofol 1,000 mg In 100 100 192.733 99.287 ml @ Titrate IV .Q0M [facility] Rx#:[id number] Oral 200 Tube Feeding 0 Output: Gastric Drainage 500 700 Urine 160 240 44 Other: Voiding Method Indwelling Catheter Indwelling Catheter # Voids 1 On examination he is on the vent 40% FiO2 sedated with propofol. HEENT exam neck is supple pupils are equal no JVP is noted Lungs are significant for fairly normal breath sounds on the right and almost absent on the left. Heart sounds are unremarkable no murmur rub gallop and atrial fibrillation on the monitor Abdomen is soft nontender, nondistended Extremity exam reveals 1+ to 2+ edema Neurologically sedated. - Labs CBC & Chem 7: 09/09/17 04:33 09/09/17 04:33 Labs: Abnormal Lab Results - Last 24 Hours (Table) 09/08/17 09/08/17 09/08/17 Range/Units 09:55 11:41 18:45 WBC (3.8-10.6) k/uL RBC (4.30-5.90) m/uL Hgb (13.0-17.5) gm/dL Hct (39.0-53.0) % MCHC (31.0-37.0) g/dL RDW (11.5-15.5) % ABG pCO2 (35-45) mmHg ABG pO2 70 L (83-108) mmHg ABG HCO3 (21-25) mmol/L ABG Total CO2 25 H (19-24) mmol/L Potassium (3.5-5.1) mmol/L BUN (9-20) mg/dL Creatinine (0.66-1.25) mg/dL Glucose (74-99) mg/dL POC Glucose (mg/dL) 123 H 161 H (75-99) mg/dL Phosphorus (2.5-4.5) mg/dL 09/08/17 09/09/1709/09/17 Range/Units 21:39 04:33 04:33 WBC 30.7 H* (3.8-10.6) k/uL RBC 3.65 L (4.30-5.90) m/uL Hgb 9.3 L (13.0-17.5) gm/dL Hct 32.7 L (39.0-53.0) % MCHC 28.4 L (31.0-37.0) g/dL RDW 16.7 H (11.5-15.5) % ABG pCO2 (35-45) mmHg ABG pO2 (83-108) mmHg ABG HCO3 (21-25) mmol/L ABG Total CO2 (19-24) mmol/L Potassium 5.4 H (3.5-5.1) mmol/L BUN 45 H (9-20) mg/dL Creatinine 2.20 H (0.66-1.25) mg/dL Glucose 122 H (74-99) mg/dL POC Glucose (mg/dL) 146 H (75-99) mg/dL Phosphorus 6.9 H (2.5-4.5) mg/dL 09/09/17 Range/Units 08:36 WBC (3.8-10.6) k/uL RBC (4.30-5.90) m/uL Hgb (13.0-17.5) gm/dL Hct (39.0-53.0) % MCHC (31.0-37.0) g/dL RDW (11.5-15.5) % ABG pCO2 50 H (35-45) mmHg ABG pO2 (83-108) mmHg ABG HCO3 26 H (21-25) mmol/L ABG Total CO2 28 H (19-24) mmol/L Potassium (3.5-5.1) mmol/L BUN (9-20) mg/dL Creatinine (0.66-1.25) mg/dL Glucose (74-99) mg/dL POC Glucose (mg/dL) (75-99) mg/dL Phosphorus (2.5-4.5) mg/dL Microbiology - Last 24 Hours (Table) 09/08/17 10:30 Gram Stain - Preliminary Bronchial Washings - Right Bronchial Washings Culture - Preliminary 09/04/17 12:00 Fungal Culture - Preliminary Bronchial Washings - Right Hillary albicans Assessment and Plan Plan: 1. Chronic kidney disease stage III secondary to nonsteroidal use, as well as exposure to cis-sokaogon in the past for lung cancer. Baseline creatinine is about 1.4 but more recently supposedly is in the 1.8 range. 2. Acute kidney injury secondary to prerenal secondary to hypotension requiring levo fed and pneumonia and collapse of lung secondary to mucous plugging and status post ninth bronchoscopy. Oliguric for the last 2 days, creatinine went up from 1.5-1.8-2.2. 3. Known small cell lung cancer with remote lobectomy. 4. Mild to moderate edema. 5. Atrial fibrillation, controlled ventricular response 6. Hypotension requiring levo fed. Likely sepsis 7. Mild hyperkalemia, potassium is 5.4, etiology is acute kidney injury. 8. Mild hyperphosphatemia, 6.9 Recommendation. 1. Hold diuretics and if necessary bolus with normal saline 2. Avoid all nephrotoxic medications 3. Watch hyperkalemia. No need to treat for right now 4. Ensure adequate. Nutritional support 5. Because of the worsening phosphorus we will start binders. Tums liquid 500 mg 4 times a day with the feeding that is being started just now. 6. Suggest discontinue vancomycin and use alternative non-nephrotoxic antibiotics
[2017-09-09] MEDS: INSULIN LISPRO (humaLOG) 300 UNIT/3 ML VIAL SQ SCH ×4 (11:34→22:18)
[2017-09-09] MEDS: PANTOPRAZOLE 40 MG/10 ML VIAL IVP SCH (11:37)
--- NOTE | 2017-09-09 11:37 | P.PN ---
Subjective Progress Note Date: 09/09/17 Principal diagnosis: Acute fall and possible right hip fracture, right lung collapse requiring bronchoscopy and BAL 9 for mucous plug suctioning from right mainstem bronchus. 67-year-old male patient who came into the intensive care yesterday with a complete right lung collapse. I performed a bronchoscopy and therapeutic airway suctioning and copious amounts of mucous plug was aspirated from the right lung. Postop, the patient a chest x-ray today and the right lung is adequately expanded and the patient has adequate rotation of the right upper lobe. Note that he has a right middle lobe/right lower lobe resection and the stump looked quite healthy during the bronchoscope. Is currently on fleets of oxygen nasal cannula. Previous cultures have showed pseudomonas and Moraxella and the patient is currently on IV Fortaz. No fever. No chills. No night sweats. He is tolerating his breathing treatments. He is tolerating his antibiotics. No signs of septicemia. No aspiration. No other complaints otherwise. He was on BiPAP on and off throughout the night. Aggressive chest PT is being performed. No other significant events over the past 24 hours. On 08/30/2017 the patient is being seen in follow-up. Is doing extremely well. No respiratory difficulties. Chest x-ray shows expansion of the right upper lobe with adequate aeration. Limited cough without any significant hemoptysis. He is able to bring up some sputum. He is using incentive spirometer. Afebrile. Hemodynamically stable. No nausea. No vomiting. Tolerating diet. No other significant events over the past 24 hours. The patient remains on IV Fortaz for now. He is having aggressive chest PT and pulmonary toileting for now. The patient was seen again today 08/31/2017 in follow-up in the intensive care unit. He is currently resting quite comfortably in bed. He is awake and alert in no acute distress. He did utilize BiPAP 10/25 at 40% FiO2 throughout the evening. He is currently on 6 L high flow nasal cannula to maintain O2 saturations in the 90s. He's been hemodynamically stable. Afebrile. Bronchial findings from 08/25/2017 revealed no significant findings. Previously he had pseudomonas aeruginosa from 08/16/2017. He remains on ceftazidime. His chest x-ray continues to show improvement in his right lobe aeration. He continues to receive aggressive chest physiotherapy and pulmonary toileting. He continues to work well of the incentive spirometer and cough and deep breathing exercises. On 09/01/2017 patient's repeat chest x-ray and straight increased density within the right hemothorax and complete opacification with volume loss of the right lung. On evaluation patient is resting in bed, he did wear his BiPAP last night, he states he is slightly more short of breath but denies respiratory distress. He appears quite comfortable estimating in bed, on 6 L per high flow nasal cannula with O2 saturations around 93%. His lung sounds reveal no air entry on the right, clear with a few scattered rales on the left. He has been afebrile, his I-S effort remains poor, is only able to achieve 500 on it today. He has been sitting up in the chair on the daily basis, his bronchial washings from 08/25/2017 were positive for Corynebacterium striatum. Continues on IV ceftazidime, oral steroids and nebulizer treatments around-the- clock. He already ate breakfast today. Will be made nothing by mouth now, and she will be scheduled for repeat bronchoscopy with bronchial alveolar lavage with Dr. Mckeon at 1400 today and the endoscopic suite. Patient is in agreement with the plan. On 09/02/2017 the patient has no specific complaints. He is feeling well. After doing adequate therapeutic airway suctioning and removal of mucous plugs yesterday for a bronchoscopy, the patient's chest x-ray from today showing recurrent opacification of the right upper lobe. Despite that, the patient is not having any major stroke difficulties. No fever. No chills. No sweats. No fever. No chills. I'm still awaiting the repeat cultures that were collected from the right upper lobe to see if there is any antibiotic modifications that we can do to improve this patient's mucous production and recurrent atelectasis of the right upper lobe. He is hemodynamically stable. He is on 5-6 L of oxygen nasal cannula. He is being seen by infectious disease. He is still on IV Fortaz. No other significant events overnight. On 09/03/2017 the patient has no new complaints. Is still low 60s of oxygen by nasal cannula. Right upper lobe remains atelectatic due to mucous plugs. Awaiting final cultures from the lavage of the right upper lobe that was obtained on Monday. Meanwhile, remains on antibiotics and the patient is doing aggressive pulmonary toileting. He is doing deep breathing and coughing and he is using BiPAP overnight. On 09/04/2017, patient has no complaints, however he is still on relatively high O2 flow, 6 L nasal cannula, chest x-ray showed complete collapse of the right lung and whitening gout of the right upper lobe. Patient remains on antibiotics, remains on bronchodilators, he has been on BiPAP intermittently. Patient had difficulty clearing get big mucous plug yesterday, and he almost had respiratory arrest, but somehow he managed to do okay. Today he is asymptomatic, but chest x-ray is quite abnormal, and I had a discussion with him and his and his admitting physician that I plan to repeat bronchoscopy today and clean up the right upper lobe again. Labs were reviewed, chest x-ray was reviewed, cultures were all reviewed, On 09/05/2017, patient is basically about the same, he underwent bronchoscopy yesterday, and I was able to suction all the mucous plugs from the right mainstem bronchus and right upper lobe. However chest x-ray again today is showing collapse of the right upper lobe. So far the patient had 7 bronchoscopies in the last 3 weeks. And obviously he will need another bronchoscopy which I plan to schedule tomorrow. In the meantime remains on bronchodilators, remains on antibiotics, and it is extremely difficult to keep the right mainstem bronchus patent in spite of all these multiple bronchoscopies and in spite of antibiotics addressing the pseudomonas infection that he has. CBC was noted today, basic metabolic profile was noted. Renal profile was also noted, all labs are practically stable and about the same. Clinically the patient seems to be doing well, does not seem to be bothered much with the collapse of the right upper lobe and remains on oxygen at 6 L nasal cannula. The patient was seen again today 09/06/2017 in follow-up on the selective care unit. His chest x-ray continues to show near-complete collapse of the right upper lobe. The plan is for repeat bronchoscopy with BAL today. He remains awake and alert in no acute distress. He is receiving chest physiotherapy. He is able to expectorate small amounts of green sputum. Current white count 16.9. Hemoglobin 8.7. Creatinine 1.50. He is afebrile. Hemodynamically stable. Maintaining O2 saturations in the low 90s on 5 L high flow nasal cannula. He continues to utilize BiPAP throughout the evenings. She was seen again today 09/07/2017 in follow-up on the selective care unit. He is currently resting quite comfortably in bed. He denies any worsening shortness of breath. He continues with a productive cough of pale yellow sputum. Today's chest x-ray is stable. There is continued opacification of the right upper lobe. He is maintaining good O2 saturations in the 90s on 6 L high flow nasal cannula. Utilizes BiPAP throughout the evenings. He is afebrile. Hemodynamically stable. White count 16.2. Hemoglobin 8.6. Creatinine 1.55. Patient was reevaluated today on 09/08/2017, apparently the A team was called on to see the patient as he was noted to have increased shortness of breath early this morning, patient was in A. fib with RVR, hypotensive, and he was noted to be extremely short of breath. Patient was transferred immediately to the ICU, and I evaluated the patient immediately. Earlier this morning, I reviewed a chest x-ray, and I was planning to schedule the patient for bronchoscopy at noontime. However considering the significant deterioration in his clinical status, I went ahead and intubated the patient with a size 8.0 endotracheal tube, and I performed lavage and suctioning of the mucous plugs from the right upper lobe and right mainstem bronchus. This was done in the ICU. Patient was kept on mechanical ventilation, and I recommended we continue antibiotics, bronchodilators, we'll address his interstitial support, and I spent quite some time with his and his daughter explaining his clinical condition. Patient is presently full code, however the and daughter expressed to me that no long-term ventilatory support, based on his previously expressed wishes. Chest x-ray post intubation and lavage showed adequate expansion of the right upper lobe, continues to have opacified lower portion of the right lung because of previous bilobectomy on this patient. Labs were reviewed including ABG post intubation showed a pO2 of 70 pCO2 of 40 pH of 7.39 and this was on assist control rate of 12, tidal volume of 500, FiO2 of 50%, and PEEP of 5. Reevaluated today on 09/09/2017, patient remains on mechanical ventilation, chest x-ray was reviewed and it showed expansion of the right upper lobe, definitely improved left side is showing interstitial edema, hence the patient will be given a trial of diuretics. His A. fib and RVR has completely resolved. Patient is not requiring any pressors at this point. He was on Cardizem drip which I will likely discontinue today. Bronchial washing again is positive for corynebacterium, and Dr. Hardy felt some of this is frequently isolated from the bronchial wash, it is definitely considered pathological, and we will recommend continuing the patient on antibiotics in the form of Zosyn and vancomycin. WBC count is 330.7, hemoglobin is 9.3 ABG showed a pO2 of 90 pCO2 of 50 pH of 7.35 basic metabolic profile was relatively unremarkable, BUN is 45 creatinine is 2.20 which is close to his baseline. Patient remains on the same ventilator settings as noted above including tidal volume of 500 FiO2 will be cut down to 45%, assist control rate is 12 PEEP is 5. Rate will be increased to 14. Objective - Vital Signs Vital signs: Vital Signs Temp 98.9 F 09/09/17 04:00 Pulse 89 09/09/17 08:57 Resp 19 09/09/17 00:00 BP 98/57 09/09/17 04:30 Pulse Ox 100 09/09/17 04:30 Intake & Output 09/08/17 09/09/17 09/09/17 18:59 06:59 18:59 Intake Total 2080.230 721.336 174.554 Output Total 660 940 44 Balance 1420.230 -218.664 130.554 Weight 142.5 kg 154 kg Intake: IV 1600 320 60 Piperacillin-Tazobactam 3 100 .375 gm In Dextrose/Water 1 50ml.bag @ 12.5 mls/hr IVPB Q8H [facility] Rx#: [id number] Sodium Chloride 0.9% 1, 20 000 ml @ 125 mls/hr IV . Q8H [facility] Rx#:[id number] Sodium Chloride 0.9% 1, 1000 200 60 000 ml @ 20 mls/hr IV . Q24H [facility] Rx#:[id number] Vancomycin 2,000 mg In 500 Sodium Chloride 0.9% 500 ml @ 167 mls/hr IVPB Q24H [facility] Rx#:[id number] Intake, IV Titration 280.230 401.336 114.554 Amount Diltiazem 125 mg In 16.167 88.916 15.267 Sodium Chloride 0.9% 100 ml @ 10 MG/HR 10 mls/hr IV .[id number] [facility] Rx#: [id number] Norepinephrin 16 mg-0.9% 164.063 119.687 Ns Pmx 16 mg In 250 ml @ Titrate IV .Q0M [facility] Rx#: [id number] Propofol 1,000 mg In 100 100 192.733 99.287 ml @ Titrate IV .Q0M [facility] Rx#:[id number] Oral 200 Tube Feeding 0 Output: Gastric Drainage 500 700 Urine 160 240 44 Other: Voiding Method Indwelling Catheter Indwelling Catheter # Voids 1 - Exam Physical Exam: Revealed a 67-year-old white male, obese, in moderate respiratory distress on BiPAP which was placed prior to intubation and bronchoscopy. HEENT:[Neck is supple.] [No neck masses.] [No thyromegaly.] [No JVD.] Chest: [Diminished breath sounds on the right side, left side is relatively clear.. Cardiac Exam: Distant S1 and S2, no S3 gallop, no murmur.] Abdomen: [Obese, Soft, nontender, no megaly, no rebound, no guarding, normal bowel sounds.] Extremities: [No clubbing, trace bipedal edema, no cyanosis.] Chronic venous stasis changes. Neurological Exam: [Cannot be assessed because patient is fully sedated. When awakened and propofol placed on hold, patient was noted to be restless and agitated. Musculoskeletal: Continues to have difficulty in the range of motion of the right hip, pain with any movement of the hip. Otherwise unremarkable. Skin: Chronic venous stasis noted in the lower extremities and 1+ bipedal edema noted. Psychiatric: Cannot be assessed patient is on mechanical ventilation. And sedated. - Labs CBC & Chem 7: 09/09/17 04:33 09/09/17 04:33 Labs: Abnormal Lab Results - Last 24 Hours (Table) 09/08/17 09/08/17 09/08/17 Range/Units 11:41 18:45 21:39 WBC (3.8-10.6) k/uL RBC (4.30-5.90) m/uL Hgb (13.0-17.5) gm/dL Hct (39.0-53.0) % MCHC (31.0-37.0) g/dL RDW (11.5-15.5) % ABG pCO2 (35-45) mmHg ABG pO2 70 L (83-108) mmHg ABG HCO3 (21-25) mmol/L ABG Total CO2 25 H (19-24) mmol/L Potassium (3.5-5.1) mmol/L BUN (9-20) mg/dL Creatinine (0.66-1.25) mg/dL Glucose (74-99) mg/dL POC Glucose (mg/dL) 161 H 146 H (75-99) mg/dL Phosphorus (2.5-4.5) mg/dL 09/09/17 09/09/17 09/09/17 Range/Units 04:33 04:33 08:36 WBC 30.7 H* (3.8-10.6) k/uL RBC 3.65 L (4.30-5.90) m/uL Hgb 9.3 L (13.0-17.5) gm/dL Hct 32.7 L (39.0-53.0) % MCHC 28.4 L (31.0-37.0) g/dL RDW 16.7 H (11.5-15.5) % ABG pCO2 50 H (35-45) mmHg ABG pO2 (83-108) mmHg ABG HCO3 26 H (21-25) mmol/L ABG Total CO2 28 H (19-24) mmol/L Potassium 5.4 H (3.5-5.1) mmol/L BUN 45 H (9-20) mg/dL Creatinine 2.20 H (0.66-1.25) mg/dL Glucose 122 H (74-99) mg/dL POC Glucose (mg/dL) (75-99) mg/dL Phosphorus 6.9 H (2.5-4.5) mg/dL 09/09/17 Range/Units 09:13 WBC (3.8-10.6) k/uL RBC (4.30-5.90) m/uL Hgb (13.0-17.5) gm/dL Hct (39.0-53.0) % MCHC (31.0-37.0) g/dL RDW (11.5-15.5) % ABG pCO2 (35-45) mmHg ABG pO2 (83-108) mmHg ABG HCO3 (21-25) mmol/L ABG Total CO2 (19-24) mmol/L Potassium (3.5-5.1) mmol/L BUN (9-20) mg/dL Creatinine (0.66-1.25) mg/dL Glucose (74-99) mg/dL POC Glucose (mg/dL) 117 H (75-99) mg/dL Phosphorus (2.5-4.5) mg/dL Microbiology - Last 24 Hours (Table) 09/08/17 10:30 Gram Stain - Preliminary Bronchial Washings - Right Bronchial Washings Culture - Preliminary 09/04/17 12:00 Fungal Culture - Preliminary Bronchial Washings - Right Hillary albicans Assessment and Plan Plan: #1 acute respiratory failure secondary to right upper lobe collapse, atrial fibrillation with RVR requiring Cardizem, history of systolic congestive heart failure. #2 Atrial fibrillation and rapid ventricular response requiring Cardizem drip #3 Acute right lung pneumonia, secondary to pseudomonas aeruginosa. Requiring multiple bronchoscopies for recurrent right mainstem mucous plugging and right upper lobe mucous plugging. #4 Acute hypoxic respiratory failure secondary to above. #5 Diabetes mellitus, type II. #6 History of CVA. #7 Hypertension. #8 History of lung, non-small cell carcinoma. History of right lower lobectomy #9 Hyperlipidemia. #10 Renal insufficiency. #11 Ventricular tachycardia. #12 Acute fall status post with right hip pain, negative for fracture. Recommendation: Patient will be kept on mechanical ventilation, continue antibiotics as ordered by Dr. Hardy, nasogastric tube was placed, nutritional support will be addressed via nasogastric tube feeding, continue bronchodilators , continue daily holding off sedation and assessment, no plans to wean and extubate the patient over the weekend, address his hemodynamic status accordingly. We'll give the patient today a trial of diuresis since the chest x -ray is showing some component of mild interstitial edema more so on the left side. Prognosis remains poor and guarded, we'll continue to follow closely, had a long discussion with family yesterday at bedside. And they are aware that no plans to wean and extubate over the weekend. Continue antibiotics as per infectious disease on the case, nephrology is following his renal status. Critical care time is 32 minutes. Not including the time spent on procedures/ placement of left radial arterial line. Time with Patient: Greater than 30
--- NOTE | 2017-09-09 11:49 | PCN ---
PROCEDURE NOTE OPERATIVE REPORT: Placement of left radial arterial line. PREOPERATIVE DIAGNOSIS: Acute respiratory failure. POSTOPERATIVE DIAGNOSIS: Acute respiratory failure. ANESTHESIA: None deployed. PROCEDURE IN DETAIL: The patient was placed in the supine position, the left arm was placed on a table, and the left wrist was prepared in a sterile fashion and drapes were applied. The left radial artery was palpated, cannulated, and a guidewire was placed. A Cook catheter was inserted over the guidewire, and the guidewire was removed. Good blood flow and good waveform were noted. The line was secured using 3.0 silk sutures. A dressing was applied. Procedure was well tolerated and no evidence of any immediate complications. MMODL / IJN: [id number] /
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
[2017-09-09] MEDS ORDERED: IV VANCOMYCIN PER PHARMACY 1 EACH MISC MISCELLANE PRN (12:28)
[2017-09-09 12:36] LABS: Glucose,Whole Blood 123 mg/dL (75-99)
[2017-09-09] MEDS ORDERED: VANCOMYCIN 2,000 MG in SODIUM CHLORIDE 0.9% 500 ML IVPB ONE (13:00)
[2017-09-09] MEDS: LIDOCAINE 5% PATCH TOPICAL SCH (14:51)
--- NOTE | 2017-09-09 16:22 | P.PN ---
Subjective Progress Note Date: 09/09/17 Principal diagnosis: Respiratory failure 67-year-old male who is well-known to the infectious disease service with as many hospitalizations as well as his hidradenitis. He's had a couple hospitalizations in the last several months that included atrial fibrillation with nonsustained V. tach. He has underlying cardiac murmur. He's had vertigo and acute renal failure. He's had some time at the extended care facility in the past year but is now home Doing relatively well under the care of his . He was hospitalized earlier this year with a bout of congestive heart failure and is in relatively well since that time. The. The patient was bathing and suffered a fall and now presents with severe right sided hip pain. He's been evaluated by orthopedics. The hidradenitis is now being treated with Humira injections at home. This is on Fridays. This has been occurring for the last couple of months now. There is been decreasing amount of drainage. His skin is becoming less erythematous and inflamed. The amount of drainage is improving The family is pleased that there is showing some improvement given the many year history of lack of improvement. However was still must apply large amounts of dressings on a daily basis to contain his drainage. The patient never became progressively more short of breath. Was transferred to intensive care unit. He's been seen by pulmonary and underwent bronchoscopy for removal of large mucous plugging to the right lung. Patient remains on BiPAP but is more stable at this time. Antimicrobial therapy was initiated with concerns to pneumonia with this pulmonary process. Cultures have revealed Moraxella and pseudomonas aeruginosa He has minimal improved pain today. Pulmonary status again was giving him difficulties, and again had bronchoscopy for the seventh time to remove more mucous plugs. Doing well after the bronchoscopy. However is certainly with weakness overall. His had significant amount of sputum production. He had a large mucous plug that he was able to express by the care of his family and a Yonker suction. The patient is starting to show some mild improvement. And there is discussion about possible transfer to select specialty. Family however is discontent with this solution and so far away. They are very close family and they will cause some hardship for them to be of the visit him. We discussed there are other options. Initiation of therapy with vancomycin has occurred. The patient however has had significant worsening of his status . He had marked mucous plugging again occurring to the right mainstem bronchus. He also had onset of atrial fibrillation with rapid ventricular response with hemodynamic instability. He required intubation sedated and mechanically ventilated. Has required Cardizem and vasopressor therapy. He however has had worsening of his renal function, nephrology is following and is concerned and if he has worsening may May consider hemodialysis. Objective - Vital Signs Vital signs: Vital Signs Temp 99.6 F 09/09/17 12:00 Pulse 102 H 09/09/17 16:02 Resp 6 L 09/09/17 13:30 BP 99/54 09/09/17 13:30 Pulse Ox 96 09/09/17 13:30 Intake & Output 09/08/17 09/09/17 09/09/17 18:59 06:59 18:59 Intake Total 2080.230 721.336 392.414 Output Total 660 940 114 Balance 1420.230 -218.664 278.414 Weight 142.5 kg 154 kg Intake: IV 1600 320 160 Piperacillin-Tazobactam 3 100 .375 gm In Dextrose/Water 1 50ml.bag @ 12.5 mls/hr IVPB Q8H [facility] Rx#: [id number] Sodium Chloride 0.9% 1, 20 000 ml @ 125 mls/hr IV . Q8H [facility] Rx#:[id number] Sodium Chloride 0.9% 1, 1000 200 160 000 ml @ 20 mls/hr IV . Q24H [facility] Rx#:[id number] Vancomycin 2,000 mg In 500 Sodium Chloride 0.9% 500 ml @ 167 mls/hr IVPB Q24H [facility] Rx#:[id number] Intake, IV Titration 280.230 401.336 232.414 Amount Diltiazem 125 mg In 16.167 88.916 15.267 Sodium Chloride 0.9% 100 ml @ 10 MG/HR 10 mls/hr IV .[id number] [facility] Rx#: [id number] Norepinephrin 16 mg-0.9% 164.063 119.687 Ns Pmx 16 mg In 250 ml @ Titrate IV .Q0M [facility] Rx#: [id number] Propofol 1,000 mg In 100 100 192.733 217.147 ml @ Titrate IV .Q0M [facility] Rx#:[id number] Oral 200 Tube Feeding 0 0 Output: Gastric Drainage 500 700 Urine 160 240 114 Other: Voiding Method Indwelling Catheter Indwelling Catheter Indwelling Catheter # Voids 1 ABP, PAP, CO, CI - Last Documented Arterial Blood Pressure 125/45 - Exam Pleasant 67-year-old gentleman who suffers from obesity who is now intubated sedated and mechanically ventilated HEENT: Anicteric conjunctiva are pink and moist nasal mucosa grossly intact without significant lesions, there is no thrush. Neck: The neck is supple without significant lymphadenopathy or thyromegaly. Lungs: There is symmetrical air entry with evidence of crackles at the the right base Heart: Irregular with an audible S1 and S2 no S3 soft S4 There is no significant murmur click or rub, PMI was nondisplaced. Abdomen: Obese, Positive bowel sounds soft and nontender without palpable masses or organomegaly. There was no guarding or rebound. Extremities: The upper extremities have excellent pulses they are symmetric, no significant petechiae or telangiectasia. No splinter hemorrhages were noted. The left lower extremity is without significant tenderness at this time. Of note he is able to move it himself with only minimal discomfort. There is at the chronic drainage without change from last evaluation. He has extensive areas of drainage on the buttocks bilaterally and inner thighs. Neuro: Sedated - Labs CBC & Chem 7: 09/09/17 04:33 09/09/17 04:33 Labs: Abnormal Lab Results - Last 24 Hours (Table) 09/08/17 09/08/17 09/09/17 Range/Units 18:45 21:39 04:33 WBC 30.7 H* (3.8-10.6) k/uL RBC 3.65 L (4.30-5.90) m/uL Hgb 9.3 L (13.0-17.5) gm/dL Hct 32.7 L (39.0-53.0) % MCHC 28.4 L (31.0-37.0) g/dL RDW 16.7 H (11.5-15.5) % ABG pCO2 (35-45) mmHg ABG HCO3 (21-25) mmol/L ABG Total CO2 (19-24) mmol/L Potassium (3.5-5.1) mmol/L BUN (9-20) mg/dL Creatinine (0.66-1.25) mg/dL Glucose (74-99) mg/dL POC Glucose (mg/dL) 161 H 146 H (75-99) mg/dL Phosphorus (2.5-4.5) mg/dL 09/09/17 09/09/17 09/09/17 Range/Units 04:33 08:36 09:13 WBC (3.8-10.6) k/uL RBC (4.30-5.90) m/uL Hgb (13.0-17.5) gm/dL Hct (39.0-53.0) % MCHC (31.0-37.0) g/dL RDW (11.5-15.5) % ABG pCO2 50 H (35-45) mmHg ABG HCO3 26 H (21-25) mmol/L ABG Total CO2 28 H (19-24) mmol/L Potassium 5.4 H (3.5-5.1) mmol/L BUN 45 H (9-20) mg/dL Creatinine 2.20 H (0.66-1.25) mg/dL Glucose 122 H (74-99) mg/dL POC Glucose (mg/dL) 117 H (75-99) mg/dL Phosphorus 6.9 H (2.5-4.5) mg/dL 09/09/17 Range/Units 12:35 WBC (3.8-10.6) k/uL RBC (4.30-5.90) m/uL Hgb (13.0-17.5) gm/dL Hct (39.0-53.0) % MCHC (31.0-37.0) g/dL RDW (11.5-15.5) % ABG pCO2 (35-45) mmHg ABG HCO3 (21-25) mmol/L ABG Total CO2 (19-24) mmol/L Potassium (3.5-5.1) mmol/L BUN (9-20) mg/dL Creatinine (0.66-1.25) mg/dL Glucose (74-99) mg/dL POC Glucose (mg/dL) 123 H (75-99) mg/dL Phosphorus (2.5-4.5) mg/dL Microbiology - Last 24 Hours (Table) 09/08/17 10:30 Gram Stain - Preliminary Bronchial Washings - Right Bronchial Washings Culture - Preliminary Laboratory Results WBC 30.7 k/uL (3.8-10.6) H* 09/09/17 04:33 RBC 3.65 m/uL (4.30-5.90) L 09/09/17 04:33 Hgb 9.3 gm/dL (13.0-17.5) L 09/09/17 04:33 Hct 32.7 % (39.0-53.0) L 09/09/17 04:33 MCV 89.7 fL (80.0-100.0) 09/09/17 04:33 MCH 25.5 pg (25.0-35.0) 09/09/17 04:33 MCHC 28.4 g/dL (31.0-37.0) L 09/09/17 04:33 RDW 16.7 % (11.5-15.5) H 09/09/17 04:33 Plt Count 413 k/uL (150-450) 09/09/17 04:33 Neutrophils % 78 % 09/07/17 05:31 Lymphocytes % 10 % 09/07/17 05:31 Monocytes % 6 % 09/07/17 05:31 Eosinophils % 2 % 09/07/17 05:31 Basophils % 0 % 09/07/17 05:31 Neutrophils # 12.6 k/uL (1.3-7.7) H 09/07/17 05:31 Lymphocytes # 1.6 k/uL (1.0-4.8) 09/07/17 05:31 Monocytes # 1.0 k/uL (0-1.0) 09/07/17 05:31 Eosinophils # 0.4 k/uL (0-0.7) 09/07/17 05:31 Basophils # 0.1 k/uL (0-0.2) 09/07/17 05:31 Hypochromasia Marked 09/09/17 04:33 Anisocytosis Slight 09/09/17 04:33 Sample Site arleen 09/09/17 08:36 ABG pH 7.35 (7.35-7.45) 09/09/17 08:36 ABG pCO2 50 mmHg (35-45) H 09/09/17 08:36 ABG pO2 90 mmHg (83-108) 09/09/17 08:36 ABG HCO3 26 mmol/L (21-25) H 09/09/17 08:36 ABG Total CO2 28 mmol/L (19-24) H 09/09/17 08:36 ABG O2 Saturation 96.0 % (94-97) 09/09/17 08:36 ABG Base Excess 1.4 mmol/L 09/09/17 08:36 FiO2 40 % 09/09/17 08:36 Sodium 139 mmol/L (137-145) 09/09/17 04:33 Potassium 5.4 mmol/L (3.5-5.1) H 09/09/17 04:33 Chloride 105 mmol/L (98-107) 09/09/17 04:33 Carbon Dioxide 26 mmol/L (22-30) 09/09/17 04:33 Anion Gap 8 mmol/L 09/09/17 04:33 BUN 45 mg/dL (9-20) H 09/09/17 04:33 Creatinine 2.20 mg/dL (0.66-1.25) H 09/09/17 04:33 Est GFR (MDRD) Af Amer 36 (>60 ml/min/1.73 sqM) 09/09/17 04:33 Est GFR (MDRD) Non-Af 30 (>60 ml/min/1.73 sqM) 09/09/17 04:33 Glucose 122 mg/dL (74-99) H 09/09/17 04:33 POC Glucose (mg/dL) 123 mg/dL (75-99) H 09/09/17 12:35 POC Glu [employer] Special Agent ID Samantha Cabrera 09/09/17 12:[address] Glu mg/dL 143 mg/dL 08/16/17 07:03 Hemoglobin A1c 6.6 % (4.2-6.1) H 08/16/17 07:03 Plasma Lactic Acid Jose Raul 1.4 mmol/L (0.7-2.0) 09/08/17 23:54 Calcium 8.4 mg/dL (8.4-10.2) 09/09/17 04:33 Phosphorus 6.9 mg/dL (2.5-4.5) H 09/09/17 04:33 Magnesium 1.8 mg/dL (1.6-2.3) 09/09/17 04:33 Iron 17 ug/dL (65-175) L 09/07/17 05:31 TIBC 175 ug/dL (228-460) L 09/07/17 05:31 Iron Saturation 9.71 (15.00-50.00) L 09/07/17 05:31 Ferritin 313.6 ng/mL (22.0-322.0) 09/07/17 05:31 Total Bilirubin 0.2 mg/dL (0.2-1.3) 08/31/17 04:23 AST 12 U/L (17-59) L 08/31/17 04:23 ALT 30 U/L (21-72) 08/31/17 04:23 Alkaline Phosphatase 104 U/L (38-126) 08/31/17 04:23 Total Protein 7.0 g/dL (6.3-8.2) 08/31/17 04:23 Albumin 2.7 g/dL (3.5-5.0) L 08/31/17 04:23 Vitamin D 25-Hydroxy 31.9 ng/mL (30.0-100.0) 09/06/17 05:27 PTH Intact 22.7 pg/mL (14.0-72.0) 09/06/17 05:27 Cortisol 9 ug/dL 08/17/17 04:38 Urine Color Yellow 09/04/17 02:00 Urine Appearance Cloudy (Clear) 09/04/17 02:00 Urine pH 5.5 (5.0-8.0) 09/04/17 02:00 Ur Specific Ducor 1.014 (1.001-1.035) 09/04/17 02:00 Urine Protein 1+ (Negative) H 09/04/17 02:00 Urine Glucose (UA) Negative (Negative) 09/04/17 02:00 Urine Ketones Negative (Negative) 09/04/17 02:00 Urine Blood Small (Negative) H 09/04/17 02:00 Urine Nitrite Negative (Negative) 09/04/17 02:00 Urine Bilirubin Negative (Negative) 09/04/17 02:00 Urine Urobilinogen <2.0 mg/dL (<2.0) 09/04/17 02:00 Ur Leukocyte Esterase Small (Negative) H 09/04/17 02:00 Urine RBC 2 /hpf (0-5) 09/04/17 02:00 Urine WBC 36 /hpf (0-5) H 09/04/17 02:00 Cellular Casts 1 /lpf (0) 09/04/17 02:00 Hyaline Casts 3 /lpf (0-2) H 08/14/17 23:45 Granular Casts 175 /lpf (0) 09/04/17 02:00 Urine Mucus Rare /hpf (None) H 08/14/17 23:45 Urine Yeast (Budding) Few /hpf (None) H 09/04/17 02:00 Fluid Source Bronchial Wash 08/25/17 11:00 Fluid Color Red 08/25/17 11:00 Fluid Appearance Bloody 08/25/17 11:00 Fluid RBC 19539 /uL 08/25/17 11:00 Fluid Nucleated Cells 6000 /uL 08/25/17 11:00 Fluid Polynuclear WBCs 99 % 08/25/17 11:00 Fluid Mononuclear WBCs 1 % 08/25/17 11:00 Vancomycin Trough 18.4 ug/mL 09/09/17 09:56 Virus Source See Below 08/25/17 11:00 Viral Test See Below 08/25/17 11:00 Virus Analysis Interp See Below 08/25/17 11:00 Microbiology 09/08/17 10:30 Bronchial Washings - Right Gram Stain - Preliminary 09/08/17 10:30 Bronchial Washings - Right Bronchial Washings Culture - Preliminary 09/04/17 12:00 Bronchial Washings - Right Fungal Culture - Preliminary Hillary albicans 09/04/17 12:00 Bronchial Washings - Right Gram Stain - Final 09/04/17 12:00 Bronchial Washings - Right Bronchial Washings Culture - Final Corynebacterium striatum 08/25/17 11:00 Bronchial Washings - Right Acid Fast Bacilli Smear - Final 08/25/17 11:00 Bronchial Washings - Right Acid Fast Bacilli Culture - Preliminary 09/04/17 08:20 Urine,Clean Catch Urine Culture - Final 09/01/17 14:46 Bronchoalviolar Lavage - Right Gram Stain - Final 09/01/17 14:46 Bronchoalviolar Lavage - Right Bronchial Washings Culture - Final Corynebacterium striatum 08/25/17 11:00 Bronchial Washings - Right Fungal Culture - Preliminary 08/25/17 11:00 Bronchial Washings - Right Gram Stain - Final 08/25/17 11:00 Bronchial Washings - Right Bronchial Washings Culture - Final Corynebacterium striatum 08/23/17 18:27 Stool Stool Culture - Final Assessment and Plan (1) Fall Current Visit: Yes Status: Acute Priority: High Code(s): W19.XXXA - UNSPECIFIED FALL, INITIAL ENCOUNTER SNOMED Code(s): 4712360 (2) Acute right hip pain Current Visit: Yes Status: Acute Code(s): M25.551 - PAIN IN RIGHT HIP SNOMED Code(s): 02751380 (3) Rib pain on left side Current Visit: Yes Status: Acute Code(s): R07.81 - PLEURODYNIA SNOMED Code (s): 298588394 (4) Hidradenitis suppurativa Narrative/Plan: 67-year-old male has multiple medical troubles including his history of squamous cell lung cancer fifth being monitored by oncology. He is followed in the infectious disease office for the treatment of his hidradenitis which is being treated currently with Humira. There has been some improvement of his significant disease state but not resolution. The last office visit the and I agreed that we would continue treatment at least until the next quarter. He tolerated this very well. He has had no worsening of his anemia or renal failure . While in hospital his Humira is on hold. Continues to have significant pain to the right hip because of the fall. Orthopedics is following. Orthopedics apparently does not believe that there is a fracture and just has a hyperextension injury. And they will follow as needed. Underwent another bronchoscopy today for his recurrent mucus plugging For antimicrobial therapy with the isolation of the Moraxella and Pseudomonas, ceftazidime was initiated at 2 g IV piggyback every 8 hours He is much more comfortable today from the right hip pain. As has noted dressings are not needed just have him on a drainage had and allow the drainage from his large draining sinus tracts to be absorbed into the pads. He's had his seventh bronchoscopy and is doing well postop. He is doing well with current antimicrobial therapy, pulmonary toileting and positioning. We'll plan at least 10-14 days of ceftaz and after his last bronch and the PICC line has been placed Patient's Humira is on hold and this will be discussed and outpatient visits if this is be prudent for further use at this time with the biggest concerns will be his overall status. Requiring frequent bronchoscopies is problematic. The pulmonary critical care team has discussed the possibility of a transfer to select specialty. He appears to be too complex for a standard extended care facility. The family has noted is somewhat discontent with this because of such a far site. They would have difficulty visiting him. We discussed other options doing this at this time. He has now been hospitalized for 21 days with very little improvement of his status. He has underlying lung disease and is a history of lung carcinoma from 5 years ago status post resection. He appears to have ongoing worsening of his status and is having difficulty recovering from the current bout of pneumonia. It is related to family that the last 3 cultures have all failed to show the Pseudomonas. It does appear that the infection itself has done better. However continues to have ongoing great difficulties with his pulmonary status. If they do not believe that is possible for him to go to select specialty, and they do not believe he is going to improve any further then there will be option for palliative care and hospice. As noted there was concerns of potential aspiration as well as the corynebacterium species and antimicrobial therapy was altered to Zosyn and vancomycin. The patient's renal function has definitely changed, however is occurred rapidly and since he's only had a few doses of vancomycin is not the likely etiology. Pharmacy will dose based on his altering renal function. Given his recurrent pneumonia vancomycin is required at this time. The patient's status declined. He required intubation and sedation with mechanical ventilation. Bronchoscopy performed again with extensive mucous plugging foam. Post-bronchoscopy evidence of much improved aeration to the residual right upper lobe. Patient a developed atrial fibrillation with rapid ventricular response and became hemodynamically unstable, this is now improved. He is off vasopressor therapy. With his illness his chronic renal failure has worsened. Urine output is poor. The family is clear that they do not want tracheostomy. Consequently if he is chronically ventilator dependent than an alternative plan will occur. Current Visit: Yes Status: Acute Code(s): L73.2 - HIDRADENITIS SUPPURATIVA SNOMED Code(s): 00523995
[2017-09-09] MEDS: FUROSEMIDE 250 MG in SODIUM CHLORIDE 0.9% 225 ML IVP SCH (18:00)
[2017-09-09 18:13] LABS: Glucose,Whole Blood 122 mg/dL (75-99)
[2017-09-09] MEDS: MULTIVITAMINS, THERA 1 EACH TAB PO SCH (22:09)
[2017-09-09 22:20] LABS: Glucose,Whole Blood 122 mg/dL (75-99)
[2017-09-09] MEDS: SODIUM CHLORIDE 0.9% 1,000 ML IV SCH (23:24)
[2017-09-10] MEDS: PROPOFOL 1,000 MG/100 ML VIAL IV SCH ×7 (02:16→21:05)
[2017-09-10 05:13] LABS: Anisocytosis Slight; CH 24.9; CHCM 27.9; HCT 28.8 % (39.0-53.0); HDW 2.56; HGB 8.1 gm/dL (13.0-17.5); Hypochromasia Marked; MCH 25.1 pg (25.0-35.0); MCV 89.5 fL (80.0-100.0); Mean Platelet Volume 7.2; RBC 3.22 m/uL (4.30-5.90); RDW 16.6 % (11.5-15.5); WBC 19.9 k/uL (3.8-10.6)
[2017-09-10 05:32] LABS: Magnesium 1.4 mg/dL (1.6-2.3); Phosphorous 6.3 mg/dL (2.5-4.5); Potassium 4.1 mmol/L (3.5-5.1)
[2017-09-10 05:58] LABS: Calcium 5.9 mg/dL (8.4-10.2)
--- NOTE | 2017-09-10 06:44 | XR ---
EXAMINATION TYPE: XR chest 1V portable DATE OF EXAM: 09/10/2017 HISTORY: Tube placement. REFERENCE: Previous study dated 09/09/2017. FINDINGS: The patient is ET tube and NG tube remain in place, unchanged in appearance. Heart size is obscured. There is diffuse increased opacity overlying the right hemithorax. Aeration i n the upper lobe may have improved slightly. The left lung appears clear. IMPRESSION: PERHAPS SLIGHT IMPROVED AERATION IN THE RIGHT UPPER LOBE.
[2017-09-10] MEDS: IPRATROPIUM-ALBUTEROL 3 ML NEB INHALATION SCH ×4 (08:18→19:33)
[2017-09-10 08:31] LABS: ABG Base Excess -0.9 mmol/L; ABG HCO3 25 mmol/L (21-25); ABG PCO2 50 mmHg (35-45); ABG PH 7.31 (7.35-7.45); ABG PO2 91 mmHg (83-108); ABG TCO2 26 mmol/L (19-24)
[2017-09-10 08:39] LABS: Glucose,Whole Blood 96 mg/dL (75-99)
[2017-09-10] MEDS: CALCIUM CARB-VIT D 500MG-200UN 1 EACH TAB PO SCH ×2 (08:52→16:23)
[2017-09-10] MEDS: MEGESTROL 400 MG/10 ML CUP PO SCH (08:52)
[2017-09-10] MEDS: BACITRACIN 500 UNIT/GM OINT 28.4 GM TUBE TOPICAL SCH (08:52)
[2017-09-10] MEDS: CITALOPRAM HYDROBROMIDE 20 MG TAB PO SCH (08:52)
[2017-09-10] MEDS: CHLORHEXIDINE GLUCONATE 15 ML CUP MUCOUS MEM SCH ×2 (08:52→20:28)
[2017-09-10] MEDS: PANTOPRAZOLE 40 MG/10 ML VIAL IVP SCH (08:52)
[2017-09-10] MEDS: INSULIN LISPRO (humaLOG) 300 UNIT/3 ML VIAL SQ SCH ×4 (08:53→20:27)
[2017-09-10] MEDS: predniSONE 10 MG TAB PO SCH (08:53)
[2017-09-10] MEDS: ALLOPURINOL 100 MG TAB PO SCH (08:53)
[2017-09-10] MEDS: guaiFENesin 600 MG TABLET.ER PO SCH ×2 (08:53→20:29)
[2017-09-10] MEDS: LINAGLIPTIN 5 MG TABLET PO SCH (08:53)
[2017-09-10] MEDS: PIPERACILLIN-TAZOBACTAM 3.375 GM in DEXTROSE/WATER 1 50ML.BAG IVPB SCH ×3 (08:54→23:30)
[2017-09-10] MEDS: LIDOCAINE 5% PATCH TOPICAL SCH (08:55)
[2017-09-10] MEDS: METOPROLOL TARTRATE 50 MG TAB PO SCH ×2 (08:55→20:28)
[2017-09-10 09:41] LABS: Appearance,Urine Turbid (Clear); Bacteria,Urine Rare /hpf; Bilirubin,Urine Negative (Negative); Glucose,Urine (UA) Negative (Negative); Ketones,Urine Negative (Negative); Leukocyte Esterase,Urine Large (Negative); Nitrite,Urine Negative (Negative); PH, Urine 5.5 (5.0-8.0); Particle Count 9125; Protein,Urine 2+ (Negative); RBC,Urine 25 /hpf (0-5); Specific Gravity,Urine 1.012 (1.001-1.035); Squamous Epithelial Cell,Urine 1 /hpf (0-4); UA Billing (MACRO vs. MICRO) MICRO; Urobilinogen,Urine <2.0 mg/dL (<2.0); WBC,Urine >182 /hpf (0-5)
[2017-09-10] MEDS ORDERED: CALCIUM GLUCONATE 1,000 MG in SODIUM CHLORIDE 0.9% 100 ML IVPB ONE (10:43)
[2017-09-10] MEDS ORDERED: MAGNESIUM SULFATE-D5W PMX 1 GM in DEXTROSE/WATER 1 100ML.BAG IVPB ONE (10:43)
[2017-09-10] MEDS: HYDROmorphone 1 MG/ML 1 ML SYRINGE IVP PRN ×3 (11:19→18:43)
[2017-09-10] MEDS: DILTIAZEM 125 MG in SODIUM CHLORIDE 0.9% 100 ML IV SCH (12:00)
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
[2017-09-10 12:12] LABS: Glucose,Whole Blood 104 mg/dL (75-99)
--- NOTE | 2017-09-10 12:28 | P.PN ---
Subjective Progress Note Date: 09/10/17 Principal diagnosis: Respiratory failure 67-year-old male who is well-known to the infectious disease service with as many hospitalizations as well as his hidradenitis. He's had a couple hospitalizations in the last several months that included atrial fibrillation with nonsustained V. tach. He has underlying cardiac murmur. He's had vertigo and acute renal failure. He's had some time at the extended care facility in the past year but is now home Doing relatively well under the care of his . He was hospitalized earlier this year with a bout of congestive heart failure and is in relatively well since that time. The. The patient was bathing and suffered a fall and now presents with severe right sided hip pain. He's been evaluated by orthopedics. The hidradenitis is now being treated with Humira injections at home. This is on Fridays. This has been occurring for the last couple of months now. There is been decreasing amount of drainage. His skin is becoming less erythematous and inflamed. The amount of drainage is improving The family is pleased that there is showing some improvement given the many year history of lack of improvement. However was still must apply large amounts of dressings on a daily basis to contain his drainage. The patient never became progressively more short of breath. Was transferred to intensive care unit. He's been seen by pulmonary and underwent bronchoscopy for removal of large mucous plugging to the right lung. Patient remains on BiPAP but is more stable at this time. Antimicrobial therapy was initiated with concerns to pneumonia with this pulmonary process. Cultures have revealed Moraxella and pseudomonas aeruginosa He has minimal improved pain today. Pulmonary status again was giving him difficulties, and again had bronchoscopy for the seventh time to remove more mucous plugs. Doing well after the bronchoscopy. However is certainly with weakness overall. His had significant amount of sputum production. He had a large mucous plug that he was able to express by the care of his family and a Yonker suction. The patient is starting to show some mild improvement. And there is discussion about possible transfer to select specialty. Family however is discontent with this solution and so far away. They are very close family and they will cause some hardship for them to be of the visit him. We discussed there are other options. Initiation of therapy with vancomycin has occurred. The patient however has had significant worsening of his status . He had marked mucous plugging again occurring to the right mainstem bronchus. He also had onset of atrial fibrillation with rapid ventricular response with hemodynamic instability. He required intubation sedated and mechanically ventilated. Has required Cardizem and vasopressor therapy. He however has had worsening of his renal function, nephrology is following and is concerned and if he has worsening mayno consider hemodialysis. Objective - Vital Signs Vital signs: Vital Signs Temp 98.2 F 09/10/17 08:00 Pulse 100 09/10/17 12:14 Resp 20 09/10/17 10:30 BP 111/65 09/10/17 10:30 Pulse Ox 100 09/10/17 10:30 Intake & Output 09/09/17 09/10/17 09/10/17 18:59 06:59 18:59 Intake Total 604.918 9968.229 130 Output Total 179 242 110 Balance 362.831 994.229 20 Weight 156.9 kg Intake: IV 260 220 100 Sodium Chloride 0.9% 1, 260 220 100 000 ml @ 20 mls/hr IV . Q24H [facility] Rx#:[id number] Intake, IV Titration 281.831 716.229 Amount Diltiazem 125 mg In 64.684 29.583 Sodium Chloride 0.9% 100 ml @ 10 MG/HR 10 mls/hr IV .[id number] [facility] Rx#: [id number] Norepinephrin 16 mg-0.9% 216.25 Ns Pmx 16 mg In 250 ml @ Titrate IV .Q0M [facility] Rx#: [id number] Propofol 1,000 mg In 100 217.147 470.396 ml @ Titrate IV .Q0M [facility] Rx#:[id number] Tube Feeding 0 150 30 Other 150 Output: Urine 179 242 110 Other: Voiding Method Indwelling Catheter Indwelling Catheter Indwelling Catheter ABP, PAP, CO, CI - Last Documented Arterial Blood Pressure 143/51 - Exam Pleasant 67-year-old gentleman who suffers from obesity who is now intubated sedated and mechanically ventilated HEENT: Anicteric conjunctiva are pink and moist nasal mucosa grossly intact without significant lesions, there is no thrush. Neck: The neck is supple without significant lymphadenopathy or thyromegaly. Lungs: There is symmetrical air entry with evidence of crackles at the the right base Heart: Irregular with an audible S1 and S2 no S3 soft S4 There is no significant murmur click or rub, PMI was nondisplaced. Abdomen: Obese, Positive bowel sounds soft and nontender without palpable masses or organomegaly. There was no guarding or rebound. Extremities: The upper extremities have excellent pulses they are symmetric, no significant petechiae or telangiectasia. No splinter hemorrhages were noted. The left lower extremity is without significant tenderness at this time. Of note he is able to move it himself with only minimal discomfort. There is at the chronic drainage without change from last evaluation. He has extensive areas of drainage on the buttocks bilaterally and inner thighs. Neuro: Sedated - Labs CBC & Chem 7: 09/10/17 04:51 09/10/17 04:51 Labs: Abnormal Lab Results - Last 24 Hours (Table) 09/09/17 09/09/17 09/09/17 Range/Units 12:35 18:12 22:17 WBC (3.8-10.6) k/uL RBC (4.30-5.90) m/uL Hgb (13.0-17.5) gm/dL Hct (39.0-53.0) % MCHC (31.0-37.0) g/dL RDW (11.5-15.5) % ABG pH (7.35-7.45) ABG pCO2 (35-45) mmHg ABG Total CO2 (19-24) mmol/L Chloride (98-107) mmol/L Carbon Dioxide (22-30) mmol/L BUN (9-20) mg/dL Creatinine (0.66-1.25) mg/dL POC Glucose (mg/dL) 123 H 122 H 122 H (75-99) mg/dL Calcium (8.4-10.2) mg/dL Phosphorus (2.5-4.5) mg/dL Magnesium (1.6-2.3) mg/dL Urine Protein (Negative) Urine Blood (Negative) Ur Leukocyte Esterase (Negative) Urine RBC (0-5) /hpf Urine WBC (0-5) /hpf Urine WBC Clumps (None) /hpf Urine Bacteria (None) /hpf 09/10/17 09/10/17 09/10/17 Range/Units 04:51 04:51 08:14 WBC 19.9 H (3.8-10.6) k/uL RBC 3.22 L (4.30-5.90) m/uL Hgb 8.1 L (13.0-17.5) gm/dL Hct 28.8 L (39.0-53.0) % MCHC 28.0 L (31.0-37.0) g/dL RDW 16.6 H (11.5-15.5) % ABG pH 7.31 L (7.35-7.45) ABG pCO2 50 H (35-45) mmHg ABG Total CO2 26 H (19-24) mmol/L Chloride 113 H (98-107) mmol/L Carbon Dioxide 19 L (22-30) mmol/L BUN 40 H (9-20) mg/dL Creatinine 2.40 H (0.66-1.25) mg/dL POC Glucose (mg/dL) (75-99) mg/dL Calcium 5.9 L* (8.4-10.2) mg/dL Phosphorus 6.3 H (2.5-4.5) mg/dL Magnesium 1.4 L (1.6-2.3) mg/dL Urine Protein (Negative) Urine Blood (Negative) Ur Leukocyte Esterase (Negative) Urine RBC (0-5) /hpf Urine WBC (0-5) /hpf Urine WBC Clumps (None) /hpf Urine Bacteria (None) /hpf 09/10/17 09/10/17 Range/Units 09:22 12:10 WBC (3.8-10.6) k/uL RBC (4.30-5.90) m/uL Hgb (13.0-17.5) gm/dL Hct (39.0-53.0) % MCHC (31.0-37.0) g/dL RDW (11.5-15.5) % ABG pH (7.35-7.45) ABG pCO2 (35-45) mmHg ABG Total CO2 (19-24) mmol/L Chloride (98-107) mmol/L Carbon Dioxide (22-30) mmol/L BUN (9-20) mg/dL Creatinine (0.66-1.25) mg/dL POC Glucose (mg/dL) 104 H (75-99) mg/dL Calcium (8.4-10.2) mg/dL Phosphorus (2.5-4.5) mg/dL Magnesium (1.6-2.3) mg/dL Urine Protein 2+ H (Negative) Urine Blood Moderate H (Negative) Ur Leukocyte Esterase Large H (Negative) Urine RBC 25 H (0-5) /hpf Urine WBC >182 H (0-5) /hpf Urine WBC Clumps Many H (None) /hpf Urine Bacteria Rare H (None) /hpf Laboratory Results WBC 19.9 k/uL (3.8-10.6) H 09/10/17 04:51 RBC 3.22 m/uL (4.30-5.90) L 09/10/17 04:51 Hgb 8.1 gm/dL (13.0-17.5) L 09/10/17 04:51 Hct 28.8 % (39.0-53.0) L 09/10/17 04:51 MCV 89.5 fL (80.0-100.0) 09/10/17 04:51 MCH 25.1 pg (25.0-35.0) 09/10/17 04:51 MCHC 28.0 g/dL (31.0-37.0) L 09/10/17 04:51 RDW 16.6 % (11.5-15.5) H 09/10/17 04:51 Plt Count 310 k/uL (150-450) 09/10/17 04:51 Neutrophils % 78 % 09/07/17 05:31 Lymphocytes % 10 % 09/07/17 05:31 Monocytes % 6 % 09/07/17 05:31 Eosinophils % 2 % 09/07/17 05:31 Basophils % 0 % 09/07/17 05:31 Neutrophils # 12.6 k/uL (1.3-7.7) H 09/07/17 05:31 Lymphocytes # 1.6 k/uL (1.0-4.8) 09/07/17 05:31 Monocytes # 1.0 k/uL (0-1.0) 09/07/17 05:31 Eosinophils # 0.4 k/uL (0-0.7) 09/07/17 05:31 Basophils # 0.1 k/uL (0-0.2) 09/07/17 05:31 Hypochromasia Marked 09/10/17 04:51 Anisocytosis Slight 09/10/17 04:51 Sample Site arleen 09/10/17 08:14 ABG pH 7.31 (7.35-7.45) L 09/10/17 08:14 ABG pCO2 50 mmHg (35-45) H 09/10/17 08:14 ABG pO2 91 mmHg (83-108) 09/10/17 08:14 ABG HCO3 25 mmol/L (21-25) 09/10/17 08:14 ABG Total CO2 26 mmol/L (19-24) H 09/10/17 08:14 ABG O2 Saturation 96.0 % (94-97) 09/10/17 08:14 ABG Base Excess -0.9 mmol/L 09/10/17 08:14 FiO2 35 % 09/10/17 08:14 Sodium 140 mmol/L (137-145) 09/10/17 04:51 Potassium 4.1 mmol/L (3.5-5.1) 09/10/17 04:51 Chloride 113 mmol/L (98-107) H 09/10/17 04:51 Carbon Dioxide 19 mmol/L (22-30) L 09/10/17 04:51 Anion Gap 8 mmol/L 09/10/17 04:51 BUN 40 mg/dL (9-20) H 09/10/17 04:51 Creatinine 2.40 mg/dL (0.66-1.25) H 09/10/17 04:51 Est GFR (MDRD) Af Amer 33 (>60 ml/min/1.73 sqM) 09/10/17 04:51 Est GFR (MDRD) Non-Af 27 (>60 ml/min/1.73 sqM) 09/10/17 04:51 Glucose 81 mg/dL (74-99) 09/10/17 04:51 POC Glucose (mg/dL) 104 mg/dL (75-99) H 09/10/17 12:10 POC Glu [employer] Server Engineer ID [email or web address] Quirino 09/10/17 12:[address] Glu mg/dL 143 mg/dL 08/16/17 07:03 Hemoglobin A1c 6.6 % (4.2-6.1) H 08/16/17 07:03 Plasma Lactic Acid Jose Raul 1.4 mmol/L (0.7-2.0) 09/08/17 23:54 Calcium 5.9 mg/dL (8.4-10.2) L* 09/10/17 04:51 Phosphorus 6.3 mg/dL (2.5-4.5) H 09/10/17 04:51 Magnesium 1.4 mg/dL (1.6-2.3) L 09/10/17 04:51 Iron 17 ug/dL (65-175) L 09/07/17 05:31 TIBC 175 ug/dL (228-460) L 09/07/17 05:31 Iron Saturation 9.71 (15.00-50.00) L 09/07/17 05:31 Ferritin 313.6 ng/mL (22.0-322.0) 09/07/17 05:31 Total Bilirubin 0.2 mg/dL (0.2-1.3) 08/31/17 04:23 AST 12 U/L (17-59) L 08/31/17 04:23 ALT 30 U/L (21-72) 08/31/17 04:23 Alkaline Phosphatase 104 U/L (38-126) 08/31/17 04:23 Total Protein 7.0 g/dL (6.3-8.2) 08/31/17 04:23 Albumin 2.7 g/dL (3.5-5.0) L 08/31/17 04:23 Vitamin D 25-Hydroxy 31.9 ng/mL (30.0-100.0) 09/06/17 05:27 PTH Intact 22.7 pg/mL (14.0-72.0) 09/06/17 05:27 Cortisol 9 ug/dL 08/17/17 04:38 Urine Color Light Yellow 09/10/17 09:22 Urine Appearance Turbid (Clear) 09/10/17 09:22 Urine pH 5.5 (5.0-8.0) 09/10/17 09:22 Ur Specific [place] 1.012 (1.001-1.035) 09/10/17 09:22 Urine Protein 2+ (Negative) H 09/10/17 09:22 Urine Glucose (UA) Negative (Negative) 09/10/17 09:22 Urine Ketones Negative (Negative) 09/10/17 09:22 Urine Blood Moderate (Negative) H 09/10/17 09:22 Urine Nitrite Negative (Negative) 09/10/17 09:22 Urine Bilirubin Negative (Negative) 09/10/17 09:22 Urine Urobilinogen <2.0 mg/dL (<2.0) 09/10/17 09:22 Ur Leukocyte Esterase Large (Negative) H 09/10/17 09:22 Urine RBC 25 /hpf (0-5) H 09/10/17 09:22 Urine WBC >182 /hpf (0-5) H 09/10/17 09:22 Urine WBC Clumps Many /hpf (None) H 09/10/17 09:22 Ur Squamous Epith Cells 1 /hpf (0-4) 09/10/17 09:22 Urine Bacteria Rare /hpf (None) H 09/10/17 09:22 Cellular Casts 1 /lpf (0) 09/04/17 02:00 Hyaline Casts 3 /lpf (0-2) H 08/14/17 23:45 Granular Casts 175 /lpf (0) 09/04/17 02:00 Urine Mucus Rare /hpf (None) H 08/14/17 23:45 Urine Yeast (Budding) Few /hpf (None) H 09/04/17 02:00 Fluid Source Bronchial Wash 08/25/17 11:00 Fluid Color Red 08/25/17 11:00 Fluid Appearance Bloody 08/25/17 11:00 Fluid RBC 67636 /uL 08/25/17 11:00 Fluid Nucleated Cells 6000 /uL 08/25/17 11:00 Fluid Polynuclear WBCs 99 % 08/25/17 11:00 Fluid Mononuclear WBCs 1 % 08/25/17 11:00 Vancomycin Trough 18.4 ug/mL 09/09/17 09:56 Virus Source See Below 08/25/17 11:00 Viral Test See Below 08/25/17 11:00 Virus Analysis Interp See Below 08/25/17 11:00 Microbiology 09/08/17 10:30 Bronchial Washings - Right Gram Stain - Preliminary 09/08/17 10:30 Bronchial Washings - Right Bronchial Washings Culture - Preliminary 09/04/17 12:00 Bronchial Washings - Right Fungal Culture - Preliminary Hillary albicans 09/04/17 12:00 Bronchial Washings - Right Gram Stain - Final 09/04/17 12:00 Bronchial Washings - Right Bronchial Washings Culture - Final Corynebacterium striatum 08/25/17 11:00 Bronchial Washings - Right Acid Fast Bacilli Smear - Final 08/25/17 11:00 Bronchial Washings - Right Acid Fast Bacilli Culture - Preliminary 09/04/17 08:20 Urine,Clean Catch Urine Culture - Final 09/01/17 14:46 Bronchoalviolar Lavage - Right Gram Stain - Final 09/01/17 14:46 Bronchoalviolar Lavage - Right Bronchial Washings Culture - Final Corynebacterium striatum 08/25/17 11:00 Bronchial Washings - Right Fungal Culture - Preliminary 08/25/17 11:00 Bronchial Washings - Right Gram Stain - Final 08/25/17 11:00 Bronchial Washings - Right Bronchial Washings Culture - Final Corynebacterium striatum 08/23/17 18:27 Stool Stool Culture - Final Assessment and Plan (1) Fall Current Visit: Yes Status: Acute Priority: High Code(s): W19.XXXA - UNSPECIFIED FALL, INITIAL ENCOUNTER SNOMED Code(s): 5216815 (2) Acute right hip pain Current Visit: Yes Status: Acute Code(s): M25.551 - PAIN IN RIGHT HIP SNOMED Code(s): 81220252 (3) Rib pain on left side Current Visit: Yes Status: Acute Code(s): R07.81 - PLEURODYNIA SNOMED Code (s): 871473723 (4) Hidradenitis suppurativa Narrative/Plan: 67-year-old male has multiple medical troubles including his history of squamous cell lung cancer fifth being monitored by oncology. He is followed in the infectious disease office for the treatment of his hidradenitis which is being treated currently with Humira. There has been some improvement of his significant disease state but not resolution. The last office visit the and I agreed that we would continue treatment at least until the next quarter. He tolerated this very well. He has had no worsening of his anemia or renal failure . While in hospital his Humira is on hold. Continues to have significant pain to the right hip because of the fall. Orthopedics is following. Orthopedics apparently does not believe that there is a fracture and just has a hyperextension injury. And they will follow as needed. Underwent another bronchoscopy today for his recurrent mucus plugging For antimicrobial therapy with the isolation of the Moraxella and Pseudomonas, ceftazidime was initiated at 2 g IV piggyback every 8 hours He is much more comfortable today from the right hip pain. As has noted dressings are not needed just have him on a drainage had and allow the drainage from his large draining sinus tracts to be absorbed into the pads. He's had his seventh bronchoscopy and is doing well postop. He is doing well with current antimicrobial therapy, pulmonary toileting and positioning. We'll plan at least 10-14 days of ceftaz and after his last bronch and the PICC line has been placed Patient's Humira is on hold and this will be discussed and outpatient visits if this is be prudent for further use at this time with the biggest concerns will be his overall status. Requiring frequent bronchoscopies is problematic. The pulmonary critical care team has discussed the possibility of a transfer to select specialty. He appears to be too complex for a standard extended care facility. The family has noted is somewhat discontent with this because of such a far site. They would have difficulty visiting him. We discussed other options doing this at this time. He has now been hospitalized for 21 days with very little improvement of his status. He has underlying lung disease and is a history of lung carcinoma from 5 years ago status post resection. He appears to have ongoing worsening of his status and is having difficulty recovering from the current bout of pneumonia. It is related to family that the last 3 cultures have all failed to show the Pseudomonas. It does appear that the infection itself has done better. However continues to have ongoing great difficulties with his pulmonary status. If they do not believe that is possible for him to go to select specialty, and they do not believe he is going to improve any further then there will be option for palliative care and hospice. As noted there was concerns of potential aspiration as well as the corynebacterium species and antimicrobial therapy was altered to Zosyn and vancomycin. The patient's renal function has definitely changed, however is occurred rapidly and since he's only had a few doses of vancomycin is not the likely etiology. Pharmacy will dose based on his altering renal function. Given his recurrent pneumonia vancomycin is required at this time. The patient's status declined. He required intubation and sedation with mechanical ventilation. Bronchoscopy performed again with extensive mucous plugging . Post-bronchoscopy evidence of much improved aeration to the residual right upper lobe. Patient a developed atrial fibrillation with rapid ventricular response and became hemodynamically unstable, this is now improved. He is off vasopressor therapy, the sample was on vasopressors overnight again. With his illness his chronic renal failure has worsened. Urine output is poor. The family is clear that they do not want tracheotomy. Consequently if he is chronically ventilator dependent than an alternative plan will occur. This time he remains on current antimicrobial therapy of Zosyn and vancomycin based on concerns to aspiration and isolated pathogens. Alternative for vancomycin at this time. Nephrology is following. Current Visit: Yes Status: Acute Code(s): L73.2 - HIDRADENITIS SUPPURATIVA SNOMED Code(s): 12467330
--- NOTE | 2017-09-10 14:15 | P.PN ---
Subjective Progress Note Date: 09/10/17 Principal diagnosis: Acute fall and possible right hip fracture, right lung collapse requiring bronchoscopy and BAL 9 for mucous plug suctioning from right mainstem bronchus. 67-year-old male patient who came into the intensive care yesterday with a complete right lung collapse. I performed a bronchoscopy and therapeutic airway suctioning and copious amounts of mucous plug was aspirated from the right lung. Postop, the patient a chest x-ray today and the right lung is adequately expanded and the patient has adequate rotation of the right upper lobe. Note that he has a right middle lobe/right lower lobe resection and the stump looked quite healthy during the bronchoscope. Is currently on fleets of oxygen nasal cannula. Previous cultures have showed pseudomonas and Moraxella and the patient is currently on IV Fortaz. No fever. No chills. No night sweats. He is tolerating his breathing treatments. He is tolerating his antibiotics. No signs of septicemia. No aspiration. No other complaints otherwise. He was on BiPAP on and off throughout the night. Aggressive chest PT is being performed. No other significant events over the past 24 hours. On 08/30/2017 the patient is being seen in follow-up. Is doing extremely well. No respiratory difficulties. Chest x-ray shows expansion of the right upper lobe with adequate aeration. Limited cough without any significant hemoptysis. He is able to bring up some sputum. He is using incentive spirometer. Afebrile. Hemodynamically stable. No nausea. No vomiting. Tolerating diet. No other significant events over the past 24 hours. The patient remains on IV Fortaz for now. He is having aggressive chest PT and pulmonary toileting for now. The patient was seen again today 08/31/2017 in follow-up in the intensive care unit. He is currently resting quite comfortably in bed. He is awake and alert in no acute distress. He did utilize BiPAP 10/25 at 40% FiO2 throughout the evening. He is currently on 6 L high flow nasal cannula to maintain O2 saturations in the 90s. He's been hemodynamically stable. Afebrile. Bronchial findings from 08/25/2017 revealed no significant findings. Previously he had pseudomonas aeruginosa from 08/16/2017. He remains on ceftazidime. His chest x-ray continues to show improvement in his right lobe aeration. He continues to receive aggressive chest physiotherapy and pulmonary toileting. He continues to work well of the incentive spirometer and cough and deep breathing exercises. On 09/01/2017 patient's repeat chest x-ray and straight increased density within the right hemothorax and complete opacification with volume loss of the right lung. On evaluation patient is resting in bed, he did wear his BiPAP last night, he states he is slightly more short of breath but denies respiratory distress. He appears quite comfortable estimating in bed, on 6 L per high flow nasal cannula with O2 saturations around 93%. His lung sounds reveal no air entry on the right, clear with a few scattered rales on the left. He has been afebrile, his I-S effort remains poor, is only able to achieve 500 on it today. He has been sitting up in the chair on the daily basis, his bronchial washings from 08/25/2017 were positive for Corynebacterium striatum. Continues on IV ceftazidime, oral steroids and nebulizer treatments around-the- clock. He already ate breakfast today. Will be made nothing by mouth now, and she will be scheduled for repeat bronchoscopy with bronchial alveolar lavage with Dr. Mckeon at 1400 today and the endoscopic suite. Patient is in agreement with the plan. On 09/02/2017 the patient has no specific complaints. He is feeling well. After doing adequate therapeutic airway suctioning and removal of mucous plugs yesterday for a bronchoscopy, the patient's chest x-ray from today showing recurrent opacification of the right upper lobe. Despite that, the patient is not having any major stroke difficulties. No fever. No chills. No sweats. No fever. No chills. I'm still awaiting the repeat cultures that were collected from the right upper lobe to see if there is any antibiotic modifications that we can do to improve this patient's mucous production and recurrent atelectasis of the right upper lobe. He is hemodynamically stable. He is on 5-6 L of oxygen nasal cannula. He is being seen by infectious disease. He is still on IV Fortaz. No other significant events overnight. On 09/03/2017 the patient has no new complaints. Is still low 60s of oxygen by nasal cannula. Right upper lobe remains atelectatic due to mucous plugs. Awaiting final cultures from the lavage of the right upper lobe that was obtained on Monday. Meanwhile, remains on antibiotics and the patient is doing aggressive pulmonary toileting. He is doing deep breathing and coughing and he is using BiPAP overnight. On 09/04/2017, patient has no complaints, however he is still on relatively high O2 flow, 6 L nasal cannula, chest x-ray showed complete collapse of the right lung and whitening gout of the right upper lobe. Patient remains on antibiotics, remains on bronchodilators, he has been on BiPAP intermittently. Patient had difficulty clearing get big mucous plug yesterday, and he almost had respiratory arrest, but somehow he managed to do okay. Today he is asymptomatic, but chest x-ray is quite abnormal, and I had a discussion with him and his and his admitting physician that I plan to repeat bronchoscopy today and clean up the right upper lobe again. Labs were reviewed, chest x-ray was reviewed, cultures were all reviewed, On 09/05/2017, patient is basically about the same, he underwent bronchoscopy yesterday, and I was able to suction all the mucous plugs from the right mainstem bronchus and right upper lobe. However chest x-ray again today is showing collapse of the right upper lobe. So far the patient had 7 bronchoscopies in the last 3 weeks. And obviously he will need another bronchoscopy which I plan to schedule tomorrow. In the meantime remains on bronchodilators, remains on antibiotics, and it is extremely difficult to keep the right mainstem bronchus patent in spite of all these multiple bronchoscopies and in spite of antibiotics addressing the pseudomonas infection that he has. CBC was noted today, basic metabolic profile was noted. Renal profile was also noted, all labs are practically stable and about the same. Clinically the patient seems to be doing well, does not seem to be bothered much with the collapse of the right upper lobe and remains on oxygen at 6 L nasal cannula. The patient was seen again today 09/06/2017 in follow-up on the selective care unit. His chest x-ray continues to show near-complete collapse of the right upper lobe. The plan is for repeat bronchoscopy with BAL today. He remains awake and alert in no acute distress. He is receiving chest physiotherapy. He is able to expectorate small amounts of green sputum. Current white count 16.9. Hemoglobin 8.7. Creatinine 1.50. He is afebrile. Hemodynamically stable. Maintaining O2 saturations in the low 90s on 5 L high flow nasal cannula. He continues to utilize BiPAP throughout the evenings. She was seen again today 09/07/2017 in follow-up on the selective care unit. He is currently resting quite comfortably in bed. He denies any worsening shortness of breath. He continues with a productive cough of pale yellow sputum. Today's chest x-ray is stable. There is continued opacification of the right upper lobe. He is maintaining good O2 saturations in the 90s on 6 L high flow nasal cannula. Utilizes BiPAP throughout the evenings. He is afebrile. Hemodynamically stable. White count 16.2. Hemoglobin 8.6. Creatinine 1.55. Patient was reevaluated today on 09/08/2017, apparently the A team was called on to see the patient as he was noted to have increased shortness of breath early this morning, patient was in A. fib with RVR, hypotensive, and he was noted to be extremely short of breath. Patient was transferred immediately to the ICU, and I evaluated the patient immediately. Earlier this morning, I reviewed a chest x-ray, and I was planning to schedule the patient for bronchoscopy at noontime. However considering the significant deterioration in his clinical status, I went ahead and intubated the patient with a size 8.0 endotracheal tube, and I performed lavage and suctioning of the mucous plugs from the right upper lobe and right mainstem bronchus. This was done in the ICU. Patient was kept on mechanical ventilation, and I recommended we continue antibiotics, bronchodilators, we'll address his interstitial support, and I spent quite some time with his and his daughter explaining his clinical condition. Patient is presently full code, however the and daughter expressed to me that no long-term ventilatory support, based on his previously expressed wishes. Chest x-ray post intubation and lavage showed adequate expansion of the right upper lobe, continues to have opacified lower portion of the right lung because of previous bilobectomy on this patient. Labs were reviewed including ABG post intubation showed a pO2 of 70 pCO2 of 40 pH of 7.39 and this was on assist control rate of 12, tidal volume of 500, FiO2 of 50%, and PEEP of 5. Reevaluated today on 09/09/2017, patient remains on mechanical ventilation, chest x-ray was reviewed and it showed expansion of the right upper lobe, definitely improved left side is showing interstitial edema, hence the patient will be given a trial of diuretics. His A. fib and RVR has completely resolved. Patient is not requiring any pressors at this point. He was on Cardizem drip which I will likely discontinue today. Bronchial washing again is positive for corynebacterium, and Dr. Hardy felt some of this is frequently isolated from the bronchial wash, it is definitely considered pathological, and we will recommend continuing the patient on antibiotics in the form of Zosyn and vancomycin. WBC count is 33.7, hemoglobin is 9.3 ABG showed a pO2 of 90 pCO2 of 50 pH of 7.35 basic metabolic profile was relatively unremarkable, BUN is 45 creatinine is 2.20 which is close to his baseline. Patient remains on the same ventilator settings as noted above including tidal volume of 500 FiO2 will be cut down to 45%, assist control rate is 12 PEEP is 5. Rate will be increased to 14. Reevaluated today on 09/10/2017, patient remains on mechanical ventilator, vent settings were reviewed, and that basically about the same, however able to cut down his FiO2 down to 35%. Chest x-ray continues to show some interstitial changes in the left lung, adequate aeration of the right upper lobe noted, no need for repeat bronchoscopy at this point. ABG showed a pO2 of 91 pCO2 of 50 pH of 7.31, hence his rate was increased to 14. Renal functioning seems a bit worse, BUN is 40 creatinine 2.40, patient did not improve much with Lasix drip at 10 mg per hour overnight. Hence the Lasix drip was discontinued. Patient remains on Cardizem at 5 mg per hour for atrial fibrillation and RVR, rate seems to be well-controlled, and hemodynamics are excellent. Patient is off norepinephrine. WBC count is 19.9 hemoglobin is 8.1. Magnesium and potassium were noted to be low and these will be corrected accordingly. Nutritional status was addressed, patient is on enteral feeding via nasogastric tube. Be followed by coal trammer Objective - Vital Signs Vital signs: Vital Signs Temp 98.2 F 09/10/17 12:00 Pulse 92 09/10/17 13:30 Resp 11 L 09/10/17 13:30 BP 113/60 09/10/17 13:30 Pulse Ox 97 09/10/17 13:30 Intake & Output 09/09/17 09/10/17 09/10/17 18:59 06:59 18:59 Intake Total 869.143 4557.229 210 Output Total 179 242 175 Balance 362.831 994.229 35 Weight 156.9 kg Intake: IV 260 220 140 Sodium Chloride 0.9% 1, 260 220 140 000 ml @ 20 mls/hr IV . Q24H [facility] Rx#:[id number] Intake, IV Titration 281.831 716.229 Amount Diltiazem 125 mg In 64.684 29.583 Sodium Chloride 0.9% 100 ml @ 10 MG/HR 10 mls/hr IV .[id number] [facility] Rx#: [id number] Norepinephrin 16 mg-0.9% 216.25 Ns Pmx 16 mg In 250 ml @ Titrate IV .Q0M [facility] Rx#: [id number] Propofol 1,000 mg In 100 217.147 470.396 ml @ Titrate IV .Q0M [facility] Rx#:[id number] Tube Feeding 0 150 70 Other 150 Output: Urine 179 242 175 Other: Voiding Method Indwelling Catheter Indwelling Catheter Indwelling Catheter ABP, PAP, CO, CI - Last Documented Arterial Blood Pressure 122/56 - Exam Physical Exam: Revealed a 67-year-old white male, on mechanical ventilation, in no distress. HEENT:[Neck is supple.] [No neck masses.] [No thyromegaly.] [No JVD.] Chest: [Diminished breath sounds on the right side, left side is relatively clear.. Cardiac Exam: Distant S1 and S2, no S3 gallop, no murmur.] Abdomen: [Obese, Soft, nontender, no megaly, no rebound, no guarding, normal bowel sounds.] Extremities: [No clubbing, trace bipedal edema, no cyanosis.] Chronic venous stasis changes. Neurological Exam: [Patient is arousable, follows simple instructions 1 propofol was placed on hold. Musculoskeletal: Continues to have difficulty in the range of motion of the right hip, pain with any movement of the hip. Otherwise unremarkable. Skin: Chronic venous stasis noted in the lower extremities and 1+ bipedal edema noted. Psychiatric: Relatively unremarkable, patient was placed briefly off propofol. - Labs CBC & Chem 7: 09/10/17 04:51 09/10/17 04:51 Labs: Abnormal Lab Results - Last 24 Hours (Table) 09/09/17 09/09/17 09/10/17 Range/Units 18:12 22:17 04:51 WBC 19.9 H (3.8-10.6) k/uL RBC 3.22 L (4.30-5.90) m/uL Hgb 8.1 L (13.0-17.5) gm/dL Hct 28.8 L (39.0-53.0) % MCHC 28.0 L (31.0-37.0) g/dL RDW 16.6 H (11.5-15.5) % ABG pH (7.35-7.45) ABG pCO2 (35-45) mmHg ABG Total CO2 (19-24) mmol/L Chloride (98-107) mmol/L Carbon Dioxide (22-30) mmol/L BUN (9-20) mg/dL Creatinine (0.66-1.25) mg/dL POC Glucose (mg/dL) 122 H 122 H (75-99) mg/dL Calcium (8.4-10.2) mg/dL Phosphorus (2.5-4.5) mg/dL Magnesium (1.6-2.3) mg/dL Urine Protein (Negative) Urine Blood (Negative) Ur Leukocyte Esterase (Negative) Urine RBC (0-5) /hpf Urine WBC (0-5) /hpf Urine WBC Clumps (None) /hpf Urine Bacteria (None) /hpf 09/10/17 09/10/17 09/10/17 Range/Units 04:51 08:14 09:22 WBC (3.8-10.6) k/uL RBC (4.30-5.90) m/uL Hgb (13.0-17.5) gm/dL Hct (39.0-53.0) % MCHC (31.0-37.0) g/dL RDW (11.5-15.5) % ABG pH 7.31 L (7.35-7.45) ABG pCO2 50 H (35-45) mmHg ABG Total CO2 26 H (19-24) mmol/L Chloride 113 H (98-107) mmol/L Carbon Dioxide 19 L (22-30) mmol/L BUN 40 H (9-20) mg/dL Creatinine 2.40 H (0.66-1.25) mg/dL POC Glucose (mg/dL) (75-99) mg/dL Calcium 5.9 L* (8.4-10.2) mg/dL Phosphorus 6.3 H (2.5-4.5) mg/dL Magnesium 1.4 L (1.6-2.3) mg/dL Urine Protein 2+ H (Negative) Urine Blood Moderate H (Negative) Ur Leukocyte Esterase Large H (Negative) Urine RBC 25 H (0-5) /hpf Urine WBC >182 H (0-5) /hpf Urine WBC Clumps Many H (None) /hpf Urine Bacteria Rare H (None) /hpf 09/10/17 Range/Units 12:10 WBC (3.8-10.6) k/uL RBC (4.30-5.90) m/uL Hgb (13.0-17.5) gm/dL Hct (39.0-53.0) % MCHC (31.0-37.0) g/dL RDW (11.5-15.5) % ABG pH (7.35-7.45) ABG pCO2 (35-45) mmHg ABG Total CO2 (19-24) mmol/L Chloride (98-107) mmol/L Carbon Dioxide (22-30) mmol/L BUN (9-20) mg/dL Creatinine (0.66-1.25) mg/dL POC Glucose (mg/dL) 104 H (75-99) mg/dL Calcium (8.4-10.2) mg/dL Phosphorus (2.5-4.5) mg/dL Magnesium (1.6-2.3) mg/dL Urine Protein (Negative) Urine Blood (Negative) Ur Leukocyte Esterase (Negative) Urine RBC (0-5) /hpf Urine WBC (0-5) /hpf Urine WBC Clumps (None) /hpf Urine Bacteria (None) /hpf Microbiology - Last 24 Hours (Table) 09/08/17 10:30 Gram Stain - Final Bronchial Washings - Right Bronchial Washings Culture - Final Corynebacterium striatum Assessment and Plan Plan: #1 acute respiratory failure secondary to right upper lobe collapse, atrial fibrillation with RVR requiring Cardizem, history of systolic congestive heart failure. #2 Atrial fibrillation and rapid ventricular response requiring Cardizem drip presently seems to be well-controlled with Cardizem at 5 mg per hour. #3 Acute right lung pneumonia, and recurrent mucous plugging involving the right upper lobe, being followed by infectious disease, addressing the issue of recurrent culturing also corynebacterium from the right upper lobe, felt to be pathological also normally it is not. #4 Acute hypoxic respiratory failure secondary to above. #5 Diabetes mellitus, type II. #6 History of CVA. #7 Hypertension. #8 History of lung, non-small cell carcinoma. History of right lower lobectomy #9 Hyperlipidemia. #10 Renal insufficiency. #11 Ventricular tachycardia. #12 Acute fall status post with right hip pain, negative for fracture. Recommendation: Patient will be kept on mechanical ventilation, continue antibiotics as ordered by Dr. Hardy, nutritional support was addressed via nasogastric tube feeding, continue bronchodilators, continue daily holding off sedation and assessment, no plans to wean and extubate today,, address his hemodynamic status accordingly. Trial of Lasix drip failed, hence we'll let the guide travel address his renal status.. Prognosis remains poor and guarded , we'll continue to follow closely, had a long discussion with family yesterday at bedside. And they are aware that no plans to wean and extubate today Continue antibiotics as per infectious disease on the case, nephrology is following his renal status. Critical care time is 35 minutes. Time with Patient: Greater than 30
[2017-09-10] MEDS: FUROSEMIDE 250 MG in SODIUM CHLORIDE 0.9% 225 ML IVP SCH (16:25)
[2017-09-10 18:43] LABS: Glucose,Whole Blood 135 mg/dL (75-99)
[2017-09-10 20:13] LABS: Glucose,Whole Blood 125 mg/dL (75-99)
[2017-09-10] MEDS: SODIUM CHLORIDE 0.9% 1,000 ML IV SCH (20:29)
[2017-09-10] MEDS: MULTIVITAMINS, THERA 1 EACH TAB PO SCH (20:29)
[2017-09-11] MEDS: DILTIAZEM 125 MG in SODIUM CHLORIDE 0.9% 100 ML IV SCH ×2 (00:45→13:25)
[2017-09-11] MEDS: PROPOFOL 1,000 MG/100 ML VIAL IV SCH ×2 (00:45→05:21)
--- NOTE | 2017-09-11 03:08 | PN ---
PROGRESS NOTE Patient is seen for followup for acute kidney injury. He remains on the vent. FiO2 is at 35%. Blood pressure 96/63, heart rate 94 per minute. He is afebrile. Examination of the heart S1, S2. Examination of the lungs bilateral breath sounds are heard. Patient on the vent. Examination of the abdomen is soft, nontender. Exam of lower extremities shows 1+ edema bilaterally. POUCH MAKER exam cannot be performed. LAB: Show sodium 140, potassium 4.1, BUN 40, serum creatinine 2.4, calcium was 5.9. ASSESSMENT: 1. Acute kidney injury, currently nonoliguric. Urine output is at about 100 an hour. His serum creatinine is a little bit higher today. He will continue to monitor for now. He has no nephrotoxic agents on board. The Lasix drip was started and then discontinued. 2. Vent dependent respiratory failure. 3. History of lung cancer. 4. Chronic kidney disease stage 3 with baseline creatinine about 1.4-1.8 mg/dL. 5. Atrial fibrillation with controlled ventricular response. PLAN: No changes for now. Repeat labs in a.m. Monitor electrolytes. MMODL / IJN: [id number] /
[2017-09-11 04:34] LABS: Anisocytosis Slight; CH 24.6; CHCM 27.8; HCT 25.4 % (39.0-53.0); HDW 2.56; HGB 7.2 gm/dL (13.0-17.5); Hypochromasia Marked; MCHC 28.1 g/dL (31.0-37.0); MCV 88.8 fL (80.0-100.0); Mean Platelet Volume 6.9; RBC 2.87 m/uL (4.30-5.90); RDW 16.5 % (11.5-15.5); WBC 15.9 k/uL (3.8-10.6)
[2017-09-11 06:23] LABS: Calcium 7.8 mg/dL (8.4-10.2); Potassium 5.8 mmol/L (3.5-5.1)
[2017-09-11 06:43] LABS: Anisocytosis Slight; CH 25.7; HCT 31.6 % (39.0-53.0); HDW 2.66; HGB 8.9 gm/dL (13.0-17.5); Hypochromasia Marked; MCH 24.9 pg (25.0-35.0); Mean Platelet Volume 8.3; RBC 3.55 m/uL (4.30-5.90); RDW 17.8 % (11.5-15.5); WBC 20.7 k/uL (3.8-10.6)
[2017-09-11] MEDS: PIPERACILLIN-TAZOBACTAM 3.375 GM in DEXTROSE/WATER 1 50ML.BAG IVPB SCH ×2 (06:48→14:31)
[2017-09-11 06:49] LABS: Phosphorous 9.2 mg/dL (2.5-4.5)
[2017-09-11] MEDS: INSULIN LISPRO (humaLOG) 300 UNIT/3 ML VIAL SQ SCH ×4 (07:30→20:25)
[2017-09-11] MEDS ORDERED: SODIUM POLYSTYRENE SULFONATE 15 GM/60 ML BOTTLE PO STA (07:36)
[2017-09-11] MEDS: IPRATROPIUM-ALBUTEROL 3 ML NEB INHALATION SCH ×5 (08:00→23:13)
--- NOTE | 2017-09-11 08:13 | XR ---
EXAMINATION TYPE: XR chest 1V portable DATE OF EXAM: 09/11/2017 COMPARISON: Prior chest x-ray 09/10/2017 HISTORY: Intubated TECHNIQUE: Single frontal view of the chest is obtained. FINDINGS: Endotracheal tube, NG tube are overlying appropriate positions. There are overlying cardia c leads. Pleural parenchymal changes within the right lung are similar. Heart is enlarged. Interstiti um and central vascularity appear somewhat prominently in the left lung. Left-sided PICC line is aga in noted. No evident pneumothorax. The patient is post lap band. IMPRESSION: Similar to previous exam. Suspect a component of interstitial lung disease, correlate to exclude pulmonary venous hypertension and interstitial edema. Postop changes. Stable pleural-parench ymal changes in the right lung.
[2017-09-11 09:36] LABS: ABG PH 7.34 (7.35-7.45)
[2017-09-11 09:37] LABS: ABG HCO3 23 mmol/L (21-25); ABG PCO2 45 mmHg (35-45); ABG PO2 96 mmHg (83-108); ABG TCO2 25 mmol/L (19-24)
[2017-09-11] MEDS: MEGESTROL 400 MG/10 ML CUP PO SCH (09:43)
[2017-09-11] MEDS: PANTOPRAZOLE 40 MG/10 ML VIAL IVP SCH (09:44)
[2017-09-11] MEDS: CHLORHEXIDINE GLUCONATE 15 ML CUP MUCOUS MEM SCH ×2 (09:44→20:25)
[2017-09-11] MEDS: CALCIUM CARB-VIT D 500MG-200UN 1 EACH TAB PO SCH ×2 (09:44→17:27)
[2017-09-11] MEDS: guaiFENesin 600 MG TABLET.ER PO SCH (09:44)
[2017-09-11] MEDS: METOPROLOL TARTRATE 50 MG TAB PO SCH ×2 (09:44→20:25)
[2017-09-11] MEDS: predniSONE 10 MG TAB PO SCH (09:45)
[2017-09-11] MEDS: ALLOPURINOL 100 MG TAB PO SCH (09:45)
[2017-09-11] MEDS: CITALOPRAM HYDROBROMIDE 20 MG TAB PO SCH (09:45)
[2017-09-11] MEDS: LIDOCAINE 5% PATCH TOPICAL SCH (09:46)
[2017-09-11] MEDS: LINAGLIPTIN 5 MG TABLET PO SCH (09:46)
[2017-09-11] MEDS: BACITRACIN 500 UNIT/GM OINT 28.4 GM TUBE TOPICAL SCH (09:46)
--- NOTE | 2017-09-11 09:50 | P.PN ---
Subjective Patient is seen in follow-up for acute kidney injury on chronic kidney disease. Patient has chronic kidney disease stage III secondary to chronic NSAID use and cisplatin toxicity with baseline creatinine near 1.6-1.8 recently. Renal function has been worsening over the last few days and creatinine is up to 4.1 today. His urine output overnight was about 15 mL an hour. He's currently intubated. He is maintained on a Cardizem drip for atrial fibrillation. He is maintained on tube feeds. Patient is being treated for pneumonia and has undergone multiple bronchoscopies this admission for recurrent collapse of the right lung. Family has been refusing the tracheostomy. On September 08 he became quite hypotensive requiring high dose of vasopressors which have now been discontinued. Vital signs stable. Heart rate 110. General: The patient appeared well nourished and normally developed. Intubated. HEENT: Head exam is unremarkable. Neck is without jugular venous distension. LUNGS: Scattered rhonchi. Breath sounds decreased. HEART: Rate and Rhythm are regular. First and second heart sounds normal. No murmurs, rubs or gallops. ABDOMEN: Abdominal exam reveals normal bowel sounds. Non-tender and non- distended. No evidence of peritonitis. EXTREMITITES: No edema. Objective - Vital Signs Vital signs: Vital Signs Temp 98.8 F 09/11/17 08:00 Pulse 110 H 09/11/17 09:00 Resp 17 09/11/17 09:00 BP 105/59 09/11/17 09:00 Pulse Ox 99 09/11/17 09:00 Intake & Output 09/10/17 09/11/17 09/11/17 18:59 06:59 18:59 Intake Total 777.5 545.187 124.5 Output Total 304 205 45 Balance 473.5 340.187 79.5 Weight 157.9 kg Intake: IV 260 200 40 Sodium Chloride 0.9% 1, 260 200 40 000 ml @ 20 mls/hr IV . Q24H [facility] Rx#:[id number] Intake, IV Titration 262.5 315.187 12.5 Amount Diltiazem 125 mg In 62.5 63.75 Sodium Chloride 0.9% 100 ml @ 10 MG/HR 10 mls/hr IV .[id number] [facility] Rx#: [id number] Piperacillin-Tazobactam 3 50 12.5 .375 gm In Dextrose/Water 1 50ml.bag @ 12.5 mls/hr IVPB Q8H [facility] Rx#: [id number] Propofol 1,000 mg In 100 200 201.437 ml @ Titrate IV .Q0M [facility] Rx#:[id number] Tube Feeding 255 30 72 Output: Urine 304 205 45 Other: Voiding Method Indwelling Catheter Indwelling Catheter ABP, PAP, CO, CI - Last Documented Arterial Blood Pressure 106/68 - Labs CBC & Chem 7: 09/11/17 05:50 09/11/17 05:50 Labs: Abnormal Lab Results - Last 24 Hours (Table) 09/10/17 09/10/17 09/10/17 Range/Units 12:10 18:41 20:11 WBC (3.8-10.6) k/uL RBC (4.30-5.90) m/uL Hgb (13.0-17.5) gm/dL Hct (39.0-53.0) % MCH (25.0-35.0) pg MCHC (31.0-37.0) g/dL RDW (11.5-15.5) % ABG pH (7.35-7.45) ABG Total CO2 (19-24) mmol/L Potassium (3.5-5.1) mmol/L BUN (9-20) mg/dL Creatinine (0.66-1.25) mg/dL POC Glucose (mg/dL) 104 H 135 H 125 H (75-99) mg/dL Calcium (8.4-10.2) mg/dL Phosphorus (2.5-4.5) mg/dL 09/11/17 09/11/17 09/11/17 Range/Units 04:15 05:50 05:50 WBC 15.9 H 20.7 H (3.8-10.6) k/uL RBC 2.87 L 3.55 L (4.30-5.90) m/uL Hgb 7.2 L 8.9 L D (13.0-17.5) gm/dL Hct 25.4 L 31.6 L (39.0-53.0) % MCH 24.9 L (25.0-35.0) pg MCHC 28.1 L 28.0 L (31.0-37.0) g/dL RDW 16.5 H 17.8 H (11.5-15.5) % ABG pH (7.35-7.45) ABG Total CO2 (19-24) mmol/L Potassium 5.8 H (3.5-5.1) mmol/L BUN 61 H (9-20) mg/dL Creatinine 4.10 H (0.66-1.25) mg/dL POC Glucose (mg/dL) (75-99) mg/dL Calcium 7.8 L (8.4-10.2) mg/dL Phosphorus 9.2 H* (2.5-4.5) mg/dL 09/11/17 Range/Units 09:25 WBC (3.8-10.6) k/uL RBC (4.30-5.90) m/uL Hgb (13.0-17.5) gm/dL Hct (39.0-53.0) % MCH (25.0-35.0) pg MCHC (31.0-37.0) g/dL RDW (11.5-15.5) % ABG pH 7.34 L (7.35-7.45) ABG Total CO2 25 H (19-24) mmol/L Potassium (3.5-5.1) mmol/L BUN (9-20) mg/dL Creatinine (0.66-1.25) mg/dL POC Glucose (mg/dL) (75-99) mg/dL Calcium (8.4-10.2) mg/dL Phosphorus (2.5-4.5) mg/dL Microbiology - Last 24 Hours (Table) 09/10/17 09:22 Urine Culture - Preliminary Urine,Catheterized 09/08/17 10:30 Gram Stain - Final Bronchial Washings - Right Bronchial Washings Culture - Final Corynebacterium striatum Assessment and Plan Plan: Assessment: #1. Acute kidney injury secondary to ischemic ATN secondary to hypotension, hemodynamic instability and diuresis. Creatinine up to 4.1 today. No evidence of retention. No proteinuria on urinalysis but repeat UA shows 1+ proteinuria which can be nonspecific in the setting of acute kidney injury. Granular casts on UA suggestive of ATN. #2. Right-sided pneumonia. Maintained on antibiotics per infectious disease recommendations. Bronchial washings positive for Corynebacterium as well as Hillary albicans. #3. Recurrent mucus plugging status post multiple bronchoscopies this admission. #4. Chronic kidney disease stage III secondary to chronic NSAID use as well as cisplatin. Recently creatinine has been near 1.6-1.8. #5. Acute hypoxic respiratory failure status post bronchoscopy with clearing of mucous plugging. #6. Non-small cell lung cancer being followed by oncology. #7. Hypomagnesemia secondary to diuresis. Improved. #8. Hypocalcemia secondary to acute kidney injury. Improved. Maintained on Os -Clifton D as well as calcitriol. Vitamin D and PTH in the normal range. #9. Hyperphosphatemia secondary to acute kidney injury. #10. Hyperkalemia secondary to acute kidney injury. #11. Atrial fibrillation maintained on Cardizem drip. Plan: Lasix 80 mg IV once today. 10 units of IV regular insulin with amp of D50 and 2 A of sodium bicarbonate IV push. Patient also received a dose of Kayexalate this morning. Repeat potassium level at 1 PM today. Continue Os-Clifton and Rocaltrol when able to tolerate oral intake. Maintain PhosLo with meals. Avoid nephrotoxic agents and hypotensive episodes - monitor vancomycin levels closely - goal 15. Continue to monitor renal function and urine output. Repeat electrolytes in the morning. Check urine eosinophils. If no improvement in renal function and urine output, will initiate renal replacement therapy. Wean FiO2.
[2017-09-11 09:51] LABS: Glucose,Whole Blood 95 mg/dL (75-99)
[2017-09-11] MEDS ORDERED: FUROSEMIDE 10 MG/ML 4 ML VIAL ONE (10:35)
[2017-09-11] MEDS ORDERED: FUROSEMIDE 10 MG/ML 10 ML VIAL IV STA (10:39)
[2017-09-11] MEDS ORDERED: INSULIN REGULAR 100 UNIT/ML VIAL IV ONE (10:50)
[2017-09-11] MEDS ORDERED: DEXTROSE 50%-WATER 50 ML SYRINGE IVP STA ×2 (10:51→15:22)
[2017-09-11 11:00] VITALS: BMI 40.2
[2017-09-11] MEDS ORDERED: SODIUM BICARB 8.4% 50 ML SYR (1 MEQ/ML) IV ONE (11:00)
[2017-09-11] MEDS: HYDROmorphone 1 MG/ML 1 ML SYRINGE IVP PRN ×4 (11:08→22:22)
[2017-09-11] MEDS: LORazepam 2 MG/ML INJ IV PRN (11:09)
--- NOTE | 2017-09-11 11:38 | P.PN ---
Subjective Progress Note Date: 09/11/17 Progress note dated 08/21/2017 This is a patient who has been having issues with mucus plugging. He is undergoing bronchoscopy on the and 18 of August and then again on August 20. He is a previous history of right lobectomy for lung cancer. He was in a team on August 16 having been admitted to the hospital on August 14 falling and injuring his right hip and shoulder. Anyway my partner has done bronchoscopy for mucous plugging and right lung collapse. Today's chest x-ray shows some aeration to the apex of the right lung and is certainly better than yesterday's x-ray. The patient's on good antibiotics. The patient getting nasal O2 at 5 L high flow or BiPAP at 12 and 5 and 40%. Only getting about 500- 550 on the incentive spirometer. Also receiving Mucomyst and bronchodilators. Is getting appointment 9 IV at 20 mL an hour. BAL showed evidence of Pseudomonas aeruginosa and the patient was placed on Fortaz. Also on Zosyn. Progress note dated 08/22/2017 This is a 67-year-old male who was admitted a number of days ago. He was in a team on August 16 [place] been admitted to the hospital on August 14. He apparently fell and injured his right shoulder and right hip. Subsequent to that because a mucous plugging and because of previous of lung cancer surgery on the right lung, the patient underwent bronchoscopy on the and August 18 and then again on August 20. Anyway, today's chest x-ray does show improvement. We've been focusing on deep breathing coughing clearing of secretions incentive spirometer breathing treatments and N-acetylcysteine. Anyway he does look better. He does not need to use of BiPAP as frequently as he is using an can rather stay on nasal prongs. Her saturations are excellent. He is on 5 L. His BAL showed evidence of Pseudomonas aeruginosa and he was placed on his Fortaz. Also remains on Zosyn. Progress note dated 08/23/2017 67-year-old male with history of fall with injury to right shoulder and right hip. The patient was admitted to the hospital August 14 and moved to the ICU on August 16 via an 18 call. Subsequent to that, he underwent bronchoscopy for right lung collapse on August 16 August 18 and then again on August 20. The patient's overall clinical status and x-rays are improving. The patient is out on the floor. Breathing better. Feeling better. Coughing clearing secretions and using the incentive spirometer. He remains on antibiotics and breathing treatments. His bronchoscopy revealed evidence of pseudomonas aeruginosa which is being treated by the antibiotic call for test. Other than that things are moving along well. Progress note dated 08/26/2017 67-year-old male who was initially admitted to the hospital on August 14 and moved to the ICU on August 16 via an A team call. The patient developed right lung collapse and had bronchoscopy by my partner on August 16 and as well as August 20. Yesterday, to continue the endoscopy suite get another bronchoscopy on him. His secretion load was much less yesterday than it was on previous bronchoscopies. Nonetheless he still had last secretions and there were suctioned. A sample was sent to laboratory for analysis. He's had a number different positive cultures including Pseudomonas from the [place] Moraxella from the [place] as well as E. coli and group B strep from the wound cultures. Overall the patient's chest x-ray my opinion is about the same. Clinically he is much improved. The patient will likely need some sort of inpatient rehab. He seems to be getting stronger. He has less respiratory issues. Coughing but not producing a lot of phlegm. Still uses his incentive spirometer every hour and getting mechanical percussion to the right lower lobe. Progress note dated 08/27/2017 67-year-old male with a history of being admitted to the hospital August 14. Moved to the ICU on August 16 because of respiratory difficulty. He developed right lung collapse and had bronchoscopy by my partner on August 16 and August 20. On August 26, I went back into the right lung and did another bronched for clearing of secretions. The most recent cultures are negative. Prior sampling showed evidence of Pseudomonas and Moraxella. In addition, wound cultures were positive for E. coli and group B strep. The patient seems to be clinically improving. His chest x-ray has not dramatically improved. The patient is working on deep breathing coughing and clearing of secretions. In addition, the patient's getting the incentive spirometer every hour. Finally, the patient is getting chest physiotherapy to the right chest. Overall, the patient showed significant clinical improvement. Spoke to his primary doctor today. Progress note dated 09/11/2017 This is a patient who was admitted way back on August 14. He was intubated on the and then extubated. He was reintubated September 08. I saw him last on August 27. He's been bronched 9 times. The patient is currently on the ventilator. His settings are the assist control mode. Rate is 16. Tidal volume is 500. FiO2 35% and PEEP of 5. His blood gases show a PaO2 of 96 a PaCO2 of 44 and a pH of 7.34. He's currently on propofol at 20 mics per kilogram per minute, Cardizem drip at 5 mg an hour. Norepinephrine is off this saline IV is at KVO. The patient was placed on PSV 15/CPAP of 5. His vital signs her respiratory status seems to be reasonably stable but he is likely not ready for extubation as yet. I mentioned to the crew that he might be a good candidate for tracheostomy. The patient has required 9 different bronchoscopies in his chest x-ray continues to show right lung collapse. Objective - Vital Signs Vital signs: Vital Signs Temp 98.8 F 09/11/17 08:00 Pulse 105 H 09/11/17 11:26 Resp 17 09/11/17 09:00 BP 105/59 09/11/17 09:00 Pulse Ox 99 09/11/17 09:00 Intake & Output 09/10/17 09/11/17 09/11/17 18:59 06:59 18:59 Intake Total 777.5 545.187 124.5 Output Total 304 205 45 Balance 473.5 340.187 79.5 Weight 157.9 kg 157.9 kg Intake: IV 260 200 40 Sodium Chloride 0.9% 1, 260 200 40 000 ml @ 20 mls/hr IV . Q24H [facility] Rx#:[id number] Intake, IV Titration 262.5 315.187 12.5 Amount Diltiazem 125 mg In 62.5 63.75 Sodium Chloride 0.9% 100 ml @ 10 MG/HR 10 mls/hr IV .[id number] [facility] Rx#: [id number] Piperacillin-Tazobactam 3 50 12.5 .375 gm In Dextrose/Water 1 50ml.bag @ 12.5 mls/hr IVPB Q8H [facility] Rx#: [id number] Propofol 1,000 mg In 100 200 201.437 ml @ Titrate IV .Q0M [facility] Rx#:[id number] Tube Feeding 255 30 72 Output: Urine 304 205 45 Other: Voiding Method Indwelling Catheter Indwelling Catheter ABP, PAP, CO, CI - Last Documented Arterial Blood Pressure 106/68 - Exam The patient's currently intubated and sedated. Endotracheal tube is noted. HEENT examination is unremarkable. Mucous membranes are moist. No oral lesions. Neck supple. Full range of motion. No adenopathy or thyromegaly. Neck veins are flat. Cardiovascular examination reveals regular rhythm rate. S1-S2 normal. No S3 or S4. No discernible murmur. Lungs reveal diminished breath sounds on the right compared to the left. The patient also has symptoms diffuse rhonchi. Some crackles are also noted on the right side. Left breath sounds are mostly clear.. Abdomen soft bowel sounds are heard. No masses or tenderness. Extremities are intact. No cyanosis clubbing but there is slight edema Skin is without rash or lesion. Neurologic examination could not be adequately performed. - Labs CBC & Chem 7: 09/11/17 05:50 09/11/17 05:50 Labs: Abnormal Lab Results - Last 24 Hours (Table) 09/10/17 09/10/17 09/10/17 Range/Units 12:10 18:41 20:11 WBC (3.8-10.6) k/uL RBC (4.30-5.90) m/uL Hgb (13.0-17.5) gm/dL Hct (39.0-53.0) % MCH (25.0-35.0) pg MCHC (31.0-37.0) g/dL RDW (11.5-15.5) % ABG pH (7.35-7.45) ABG Total CO2 (19-24) mmol/L Potassium (3.5-5.1) mmol/L BUN (9-20) mg/dL Creatinine (0.66-1.25) mg/dL POC Glucose (mg/dL) 104 H 135 H 125 H (75-99) mg/dL Calcium (8.4-10.2) mg/dL Phosphorus (2.5-4.5) mg/dL 09/11/17 09/11/17 09/11/17 Range/Units 04:15 05:50 05:50 WBC 15.9 H 20.7 H (3.8-10.6) k/uL RBC 2.87 L 3.55 L (4.30-5.90) m/uL Hgb 7.2 L 8.9 L D (13.0-17.5) gm/dL Hct 25.4 L 31.6 L (39.0-53.0) % MCH 24.9 L (25.0-35.0) pg MCHC 28.1 L 28.0 L (31.0-37.0) g/dL RDW 16.5 H 17.8 H (11.5-15.5) % ABG pH (7.35-7.45) ABG Total CO2 (19-24) mmol/L Potassium 5.8 H (3.5-5.1) mmol/L BUN 61 H (9-20) mg/dL Creatinine 4.10 H (0.66-1.25) mg/dL POC Glucose (mg/dL) (75-99) mg/dL Calcium 7.8 L (8.4-10.2) mg/dL Phosphorus 9.2 H* (2.5-4.5) mg/dL 09/11/17 Range/Units 09:25 WBC (3.8-10.6) k/uL RBC (4.30-5.90) m/uL Hgb (13.0-17.5) gm/dL Hct (39.0-53.0) % MCH (25.0-35.0) pg MCHC (31.0-37.0) g/dL RDW (11.5-15.5) % ABG pH 7.34 L (7.35-7.45) ABG Total CO2 25 H (19-24) mmol/L Potassium (3.5-5.1) mmol/L BUN (9-20) mg/dL Creatinine (0.66-1.25) mg/dL POC Glucose (mg/dL) (75-99) mg/dL Calcium (8.4-10.2) mg/dL Phosphorus (2.5-4.5) mg/dL Microbiology - Last 24 Hours (Table) 09/10/17 09:22 Urine Culture - Preliminary Urine,Catheterized 09/08/17 10:30 Gram Stain - Final Bronchial Washings - Right Bronchial Washings Culture - Final Corynebacterium striatum Assessment and Plan (1) Acute right hip pain Current Visit: Yes Status: Acute Code(s): M25.551 - PAIN IN RIGHT HIP SNOMED Code(s): 20932528 (2) Diabetes Current Visit: Yes Status: Acute Code(s): E11.9 - TYPE 2 DIABETES MELLITUS WITHOUT COMPLICATIONS SNOMED Code(s): 50765900 (3) Fall Current Visit: Yes Status: Acute Priority: High Code(s): W19.XXXA - UNSPECIFIED FALL, INITIAL ENCOUNTER SNOMED Code(s): 6582975 (4) Acute on chronic systolic heart failure Current Visit: No Status: Acute Code(s): I50.23 - ACUTE ON CHRONIC SYSTOLIC (CONGESTIVE) HEART FAILURE SNOMED Code(s): 258537719 (5) Atrial fibrillation with rapid ventricular response Current Visit: No Status: Acute Code(s): I48.91 - UNSPECIFIED ATRIAL FIBRILLATION SNOMED Code(s): 018321167364360 (6) Benign paroxysmal positional vertigo Current Visit: No Status: Acute Code(s): H81.10 - BENIGN PAROXYSMAL VERTIGO , UNSPECIFIED EAR SNOMED Code(s): 571049971 (7) Brainstem stroke Current Visit: No Status: Acute Code(s): I63.9 - CEREBRAL INFARCTION, UNSPECIFIED SNOMED Code(s): 869447232 (8) Congestive heart failure Current Visit: No Status: Acute Code(s): I50.9 - HEART FAILURE, UNSPECIFIED SNOMED Code(s): 81905539 (9) Diastolic CHF, acute on chronic Current Visit: No Status: Acute Code(s): I50.33 - ACUTE ON CHRONIC DIASTOLIC (CONGESTIVE) HEART FAILURE SNOMED Code(s): 701136170 (10) HTN (hypertension) Current Visit: No Status: Acute Code(s): I10 - ESSENTIAL (PRIMARY) HYPERTENSION SNOMED Code(s): 66281873 (11) History of lung cancer Current Visit: No Status: Acute Code(s): Z85.118 - PERSONAL HISTORY OF MALIGNANT NEOPLASM OF BRONCHUS AND LUNG SNOMED Code(s): 816923601 (12) Hyperlipemia Current Visit: No Status: Acute Code(s): E78.5 - HYPERLIPIDEMIA, UNSPECIFIED SNOMED Code(s): 51133589 (13) Non-small cell carcinoma of lung Current Visit: No Status: Acute Code(s): C34.90 - MALIGNANT NEOPLASM OF UNSP PART OF UNSP BRONCHUS OR LUNG SNOMED Code(s): 691104158 (14) Pneumonia Current Visit: No Status: Acute Code(s): J18.9 - PNEUMONIA, UNSPECIFIED ORGANISM SNOMED Code(s): 242045024 (15) Renal insufficiency Current Visit: No Status: Acute Code(s): N28.9 - DISORDER OF KIDNEY AND URETER, UNSPECIFIED SNOMED Code(s): 671039806 (16) V-tach Current Visit: No Status: Acute Code(s): I47.2 - VENTRICULAR TACHYCARDIA SNOMED Code(s): 16545685 (17) Type 2 diabetes mellitus without complications Current Visit: No Status: Chronic Code(s): E11.9 - TYPE 2 DIABETES MELLITUS WITHOUT COMPLICATIONS SNOMED Code(s): 853023168 (18) Collapse of right lung Current Visit: Yes Status: Acute Code(s): J98.11 - ATELECTASIS SNOMED Code (s): 44464714 (19) Hypoxemic respiratory failure, chronic Current Visit: Yes Status: Acute Code(s): J96.11 - CHRONIC RESPIRATORY FAILURE WITH HYPOXIA SNOMED Code(s): 204972470 (20) Respiratory failure Current Visit: Yes Status: Acute Code(s): J96.90 - RESPIRATORY FAILURE, UNSP , UNSP W HYPOXIA OR HYPERCAPNIA SNOMED Code(s): 034620165 Plan: Plan The patient will continue working on incentive spirometry bronchodilators coughing deep breathing and clearing of secretions. The patient's medications are appropriate. We'll continue to follow closely. He may need bronchoscopy in the future. No additional recommendations are made. Antibiotics are appropriate. Plan dated 08/22/2017 The patient continues to show improvement both clinically and radiographically. He continues with incentive spirometer every hour while awake breathing treatments mucolytic's deep breathing coughing and clearing of secretions. I don't believe he needs bronchoscopy at this time. He doesn't need to be on BiPAP 16 hours a day. We'll not alter his fluids based on whether or not he is or is not on BiPAP. We'll continue to follow closely. Plan dated 08/23/2017 Meds labs and x-rays are all reviewed. The patient seemed be clinically improved. Chest x-ray my in my opinion is improved. Clinically he is much better. We'll continue to follow. Discharge planning underway. No additional recommendations are made. Medications are reviewed. Plan dated 08/26/2017. X-rays reviewed. Labs are reviewed. Medications are reviewed. I talked to the patient and the patient's today. He may be at baseline. We'll go back and see we can look at old x-rays for comparison. We'll await the results of most recent bronchoscopy. In addition, if infectious disease is not involved , we'll have him see the patient. Plan dated 08/27/2017. Spoke to the primary doctor. The patient will likely be discharged to rehab facility. There the patient will continue to receive IV antibiotics via PICC line. The patient will need aggressive chest physiotherapy to the right chest. We'll repeat an x-ray in the morning. Clinically the patient's improved. Much less short of breath. Very debilitated though. Can't get out of bed. Plan dated 09/11/2017 The patient will be brought up off sedation. We'll give him a sedation holiday and do a spontaneous breathing trial. We finally were able to settle on a PSV of 15 and a CPAP of 5. On those settings he seems relatively comfortable his heart rate is in the low 1 teens. His saturations are in the low 90s. His respiratory rate is in the mid teens. He does seem to be bit more comfortable. Probably not yet ready for extubation. We'll talk to the family about tracheostomy. Additional recommendations and suggestions are forthcoming. Prognosis is guarded given the fact that he's been here first. 3 days and that is required 9 bronchoscopies. Time with Patient: Greater than 30 [id number])
[2017-09-11] MEDS: CALCIUM ACETATE 667 MG CAP PO SCH ×2 (12:07→17:27)
[2017-09-11 13:24] LABS: Glucose,Whole Blood 95 mg/dL (75-99)
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
[2017-09-11] MEDS ORDERED: INSULIN REGULAR 100 UNIT/ML VIAL IV STA (15:22)
[2017-09-11] MEDS: FUROSEMIDE 250 MG in SODIUM CHLORIDE 0.9% 225 ML IVP SCH (17:22)
[2017-09-11 17:32] LABS: Glucose,Whole Blood 116 mg/dL (75-99)
[2017-09-11 20:13] LABS: Glucose,Whole Blood 113 mg/dL (75-99)
[2017-09-11] MEDS: MULTIVITAMINS, THERA 1 EACH TAB PO SCH (20:25)
[2017-09-12] MEDS: PIPERACILLIN-TAZOBACTAM 3.375 GM in DEXTROSE/WATER 1 50ML.BAG IVPB SCH ×3 (00:10→20:05)
[2017-09-12] MEDS: HYDROmorphone 1 MG/ML 1 ML SYRINGE IVP PRN ×4 (02:59→21:36)
[2017-09-12] MEDS: IPRATROPIUM-ALBUTEROL 3 ML NEB INHALATION SCH ×6 (03:10→19:46)
[2017-09-12 04:56] LABS: Anisocytosis Slight; CH 26.1; CHCM 29.9; HCT 30.9 % (39.0-53.0); Hypochromasia Marked; MCH 25.4 pg (25.0-35.0); MCV 87.6 fL (80.0-100.0); Mean Platelet Volume 8.1; RBC 3.53 m/uL (4.30-5.90); RDW 18.1 % (11.5-15.5); WBC 18.7 k/uL (3.8-10.6)
[2017-09-12 05:00] LABS: Calcium 7.8 mg/dL (8.4-10.2); Magnesium 1.9 mg/dL (1.6-2.3); Potassium 5.2 mmol/L (3.5-5.1)
[2017-09-12 05:32] LABS: ABG Base Excess 0.1 mmol/L; ABG HCO3 25 mmol/L (21-25); ABG PCO2 48 mmHg (35-45); ABG PH 7.34 (7.35-7.45); ABG PO2 89 mmHg (83-108); ABG TCO2 27 mmol/L (19-24)
[2017-09-12 05:33] LABS: Phosphorous 9.1 mg/dL (2.5-4.5)
[2017-09-12] MEDS ORDERED: Magnesium Replacement Protocol 1 EACH MISC MISCELLANE PRN (05:37)
[2017-09-12 07:47] LABS: Glucose,Whole Blood 97 mg/dL (75-99)
[2017-09-12] MEDS: SODIUM CHLORIDE 0.9% 1,000 ML IV SCH (07:57)
[2017-09-12] MEDS: MAGNESIUM SULFATE-D5W PMX 1 GM in DEXTROSE/WATER 1 100ML.BAG IVPB SCH ×2 (07:59→10:39)
[2017-09-12] MEDS: PANTOPRAZOLE 40 MG/10 ML VIAL IVP SCH (07:59)
[2017-09-12] MEDS: CHLORHEXIDINE GLUCONATE 15 ML CUP MUCOUS MEM SCH ×2 (07:59→21:07)
[2017-09-12] MEDS: DILTIAZEM 125 MG in SODIUM CHLORIDE 0.9% 100 ML IV SCH ×2 (07:59→16:52)
[2017-09-12] MEDS: CALCIUM ACETATE 667 MG CAP PO SCH ×3 (08:00→16:53)
[2017-09-12] MEDS: ALLOPURINOL 100 MG TAB PO SCH (08:00)
[2017-09-12] MEDS: predniSONE 10 MG TAB PO SCH (08:00)
[2017-09-12] MEDS: CALCIUM CARB-VIT D 500MG-200UN 1 EACH TAB PO SCH ×2 (08:00→16:53)
[2017-09-12] MEDS: LINAGLIPTIN 5 MG TABLET PO SCH (08:00)
[2017-09-12] MEDS: CITALOPRAM HYDROBROMIDE 20 MG TAB PO SCH (08:00)
[2017-09-12] MEDS: LIDOCAINE 5% PATCH TOPICAL SCH ×2 (08:01→12:54)
[2017-09-12] MEDS: METOPROLOL TARTRATE 50 MG TAB PO SCH ×2 (08:01→21:07)
[2017-09-12] MEDS: INSULIN LISPRO (humaLOG) 300 UNIT/3 ML VIAL SQ SCH ×4 (08:21→21:13)
[2017-09-12] MEDS: BACITRACIN 500 UNIT/GM OINT 28.4 GM TUBE TOPICAL SCH (08:22)
[2017-09-12 09:14] LABS: ABG HCO3 25 mmol/L (21-25); ABG PCO2 43 mmHg (35-45); ABG PH 7.38 (7.35-7.45); ABG PO2 86 mmHg (83-108); ABG TCO2 26 mmol/L (19-24)
[2017-09-12 09:15] LABS: ABG Base Excess 0.3 mmol/L; ABG Oxygen Saturation 96.3 % (94-97)
--- NOTE | 2017-09-12 09:21 | P.PN ---
Subjective Progress Note Date: 09/12/17 Principal diagnosis: Right-sided consolidation secondary to pseudomonas aeruginosa The patient is seen again today 09/12/2017 in follow-up in the intensive care unit. He remains intubated and on the mechanical ventilator with current settings of assist control of 16, tidal volume 500, FiO2 35% and a PEEP of 5. Morning blood gases revealed a PaO2 of 89, pCO2 48, pH 7.34. He is maintained on a 0.9 normal saline drip at [place], Cardizem drip at 5 mg per hour, vital HPE tube feedings at 36 mL per hour which is his goal. The propofol is currently off he is getting a daily interruption of sedation and weaning trials. He'll be placed on pressure support of 10 in the CPAP of 5. He is currently awake and alert and following simple commands. His chest x-ray continues to show component of interstitial lung disease with some pulmonary venous hypertension and interstitial edema more so on the right lung. Left-sided PICC line remains in place. No evidence of a pneumothorax. Current white count 18.7, hemoglobin 9.0. BUN 67 creatinine 4.80. His Lasix drip was discontinued. His last dose was Lasix 80 mg IV push times one yesterday morning. He remains on DuoNeb inhalations every 4 hours. He remains on vancomycin and Zosyn. Objective - Vital Signs Vital signs: Vital Signs Temp 98.0 F 09/12/17 00:00 Pulse 105 H 09/12/17 08:08 Resp 15 09/12/17 07:00 BP 110/65 09/12/17 07:00 Pulse Ox 97 09/12/17 07:00 Intake & Output 09/11/17 09/12/17 09/12/17 18:59 06:59 18:59 Intake Total 719.164 812.0 76 Output Total 307 347 45 Balance 412.164 465.0 31 Weight 157.9 kg 157.9 kg Intake: IV 240 240 40 Sodium Chloride 0.9% 1, 240 240 40 000 ml @ 20 mls/hr IV . Q24H [facility] Rx#:[id number] Intake, IV Titration 191.164 50.0 Amount Diltiazem 125 mg In 63.333 Sodium Chloride 0.9% 100 ml @ 10 MG/HR 10 mls/hr IV .[id number] [facility] Rx#: [id number] Piperacillin-Tazobactam 3 50.0 50.0 .375 gm In Dextrose/Water 1 50ml.bag @ 12.5 mls/hr IVPB Q8H [facility] Rx#: [id number] Propofol 1,000 mg In 100 77.831 ml @ Titrate IV .Q0M [facility] Rx#:[id number] Tube Feeding 288 432 36 Other 90 Output: Urine 307 347 45 Other: Voiding Method Indwelling Catheter Indwelling Catheter ABP, PAP, CO, CI - Last Documented Arterial Blood Pressure 123/54 - Exam GENERAL EXAM: Intubated. Alert, comfortable in no apparent distress. HEAD: Normocephalic. EYES: Normal reaction of pupils, equal size. NOSE: Clear with pink turbinates. THROAT: No erythema or exudates. NECK: No masses, no JVD. CHEST: No chest wall deformity. LUNGS: Equal air entry with bilateral scattered rhonchi crackles in the right upper lung. CVS: S1 and S2 normal with no audible murmurs, regular rhythm. ABDOMEN: No hepatosplenomegaly, normal bowel sounds, no guarding or rigidity. SPINE: No scoliosis or deformity SKIN: No rashes CENTRAL NERVOUS SYSTEM: No focal deficits, tone is normal in all 4 extremities. Extremities: There is 1+ peripheral edema. No clubbing, no cyanosis. Peripheral pulses are intact. - Labs CBC & Chem 7: 09/12/17 04:30 09/12/17 04:30 Labs: Abnormal Lab Results - Last 24 Hours (Table) 09/11/17 09/11/17 09/11/17 Range/Units 09:25 14:38 17:29 WBC (3.8-10.6) k/uL RBC (4.30-5.90) m/uL Hgb (13.0-17.5) gm/dL Hct (39.0-53.0) % MCHC (31.0-37.0) g/dL RDW (11.5-15.5) % ABG pH 7.34 L (7.35-7.45) ABG pCO2 (35-45) mmHg ABG Total CO2 25 H (19-24) mmol/L Potassium 5.5 H (3.5-5.1) mmol/L BUN (9-20) mg/dL Creatinine (0.66-1.25) mg/dL POC Glucose (mg/dL) 116 H (75-99) mg/dL Calcium (8.4-10.2) mg/dL Phosphorus (2.5-4.5) mg/dL 09/11/17 09/11/17 09/12/17 Range/Units 20:05 20:07 04:23 WBC (3.8-10.6) k/uL RBC (4.30-5.90) m/uL Hgb (13.0-17.5) gm/dL Hct (39.0-53.0) % MCHC (31.0-37.0) g/dL RDW (11.5-15.5) % ABG pH 7.34 L (7.35-7.45) ABG pCO2 48 H (35-45) mmHg ABG Total CO2 27 H (19-24) mmol/L Potassium 5.4 H (3.5-5.1) mmol/L BUN (9-20) mg/dL Creatinine (0.66-1.25) mg/dL POC Glucose (mg/dL) 113 H (75-99) mg/dL Calcium (8.4-10.2) mg/dL Phosphorus (2.5-4.5) mg/dL 09/12/17 09/12/17 Range/Units 04:30 04:30 WBC 18.7 H (3.8-10.6) k/uL RBC 3.53 L (4.30-5.90) m/uL Hgb 9.0 L (13.0-17.5) gm/dL Hct 30.9 L (39.0-53.0) % MCHC 29.0 L (31.0-37.0) g/dL RDW 18.1 H (11.5-15.5) % ABG pH (7.35-7.45) ABG pCO2 (35-45) mmHg ABG Total CO2 (19-24) mmol/L Potassium 5.2 H (3.5-5.1) mmol/L BUN 67 H (9-20) mg/dL Creatinine 4.80 H (0.66-1.25) mg/dL POC Glucose (mg/dL) (75-99) mg/dL Calcium 7.8 L (8.4-10.2) mg/dL Phosphorus 9.1 H* (2.5-4.5) mg/dL Microbiology - Last 24 Hours (Table) 09/10/17 09:22 Urine Culture - Final Urine,Catheterized 08/25/17 11:00 Fungal Culture - Final Bronchial Washings - Right Hillary glabrata Assessment and Plan Plan: Impression: #1 Acute on chronic systolic congestive heart failure. #2 Atrial fibrillation with varying ventricular response. #3 Acute right lung pneumonia, secondary to pseudomonas aeruginosa. He completed his course of ceftazidime. Follow-up bronchoscopy washings revealed no growth. Multiple bronchoscopies with BAL this admission. Most recently . #4 Acute hypoxic respiratory failure secondary to above requiring intubation and mechanical ventilatory support on 09/08/2017. #5 Diabetes mellitus, type II. #6 History of CVA. #7 Hypertension. #8 History of lung, non-small cell carcinoma. History of right lower lobectomy #9 Hyperlipidemia. #10 Renal insufficiency with worsening creatinine, currently 4.80. #11 Ventricular tachycardia. #12 Acute fall status post with right hip pain, negative for fracture. Plan: The patient was seen and evaluated by Dr. Bañuelos. His chest x-ray ABGs and weaning parameters were reviewed. The patient is awake and alert and following commands. He will be extubated this morning to 6 L/m per nasal cannula. He will remain nothing by mouth for 6 hours. BiPAP will remain at the bedside and will be utilized if necessary. Continue full pulmonary toileting, continue the incentive spirometer and cough and deep breathing exercises. Continue bronchodilators. We will initiate Pulmicort and Perforomist inhalations twice a day. Discontinue oral prednisone and resume Solu-Medrol 40 mg every 8 hours IV push for now. Continue antibiotics. Nephrology is on the case. We'll continue to monitor him here closely in the intensive care unit. We will continue to follow. Critical care time 38 minutes. I performed a history and physical on the patient. Lung sounds continue with scattered rhonchi more so on the right with crackles in the right lung. He'll be extubated this morning. Currently on 6 L/m per nasal cannula maintaining O2 saturation in the low 90s. BiPAP will remain at the bedside. I discussed the findings along with the assessment and plan of care with my nurse practitioner, Princess Grossman. I attest to the above note as dictated by her. Time with Patient: Greater than 30
--- NOTE | 2017-09-12 09:26 | XR ---
EXAMINATION TYPE: XR chest 1V portable DATE OF EXAM: 09/12/2017 COMPARISON: Prior chest x-ray 09/11/2017 HISTORY: Intubated TECHNIQUE: Single frontal view of the chest is obtained. FINDINGS: Findings are similar to prior exam. Pleural parenchymal changes within the right lung show a similar appearance. Endotracheal and NG tube are overlying appropriate positions. Left-sided PICC line shows the distal tip near the cavoatrial junction level. There are overlying cardiac leads. The heart is enlarged. No evident pneumothorax. IMPRESSION: Difficult to exclude pneumonia versus atelectasis. Cardiomegaly. Stable findings.
--- NOTE | 2017-09-12 10:44 | P.PN ---
Subjective Patient is seen in follow-up for acute kidney injury on chronic kidney disease. Patient has chronic kidney disease stage III secondary to chronic NSAID use and cisplatin toxicity with baseline creatinine near 1.6-1.8 recently. Renal function has been worsening over the last few days and creatinine is up to 4.8 today. His urine output is about 15-30 mL an hour. He was extubated this morning. He is maintained on a Cardizem drip for atrial fibrillation. Patient is being treated for pneumonia and has undergone multiple bronchoscopies this admission for recurrent collapse of the right lung. Family has been refusing the tracheostomy. On September 08 he became quite hypotensive requiring high dose of vasopressors which have now been discontinued. Vital signs stable. Heart rate 110. General: The patient appeared well nourished and normally developed. Intubated. HEENT: Head exam is unremarkable. Neck is without jugular venous distension. LUNGS: Scattered rhonchi. Breath sounds decreased. HEART: Rate and Rhythm are regular. First and second heart sounds normal. No murmurs, rubs or gallops. ABDOMEN: Abdominal exam reveals normal bowel sounds. Non-tender and non- distended. No evidence of peritonitis. EXTREMITITES: No edema. Objective - Vital Signs Vital signs: Vital Signs Temp 98.8 F 09/12/17 08:00 Pulse 99 09/12/17 10:00 Resp 23 09/12/17 10:00 BP 94/68 09/12/17 10:00 Pulse Ox 94 L 09/12/17 10:00 Intake & Output 09/11/17 09/12/17 09/12/17 18:59 06:59 18:59 Intake Total 719.164 812.0 152 Output Total 307 347 85 Balance 412.164 465.0 67 Weight 157.9 kg 157.9 kg Intake: IV 240 240 80 Sodium Chloride 0.9% 1, 240 240 80 000 ml @ 20 mls/hr IV . Q24H [facility] Rx#:[id number] Intake, IV Titration 191.164 50.0 Amount Diltiazem 125 mg In 63.333 Sodium Chloride 0.9% 100 ml @ 10 MG/HR 10 mls/hr IV .[id number] [facility] Rx#: [id number] Piperacillin-Tazobactam 3 50.0 50.0 .375 gm In Dextrose/Water 1 50ml.bag @ 12.5 mls/hr IVPB Q8H [facility] Rx#: [id number] Propofol 1,000 mg In 100 77.831 ml @ Titrate IV .Q0M [facility] Rx#:[id number] Tube Feeding 288 432 72 Other 90 Output: Urine 307 347 85 Other: Voiding Method Indwelling Catheter Indwelling Catheter Indwelling Catheter ABP, PAP, CO, CI - Last Documented Arterial Blood Pressure 128/51 - Labs CBC & Chem 7: 09/12/17 04:30 09/12/17 04:30 Labs: Abnormal Lab Results - Last 24 Hours (Table) 09/11/17 09/11/17 09/11/17 Range/Units 14:38 17:29 20:05 WBC (3.8-10.6) k/uL RBC (4.30-5.90) m/uL Hgb (13.0-17.5) gm/dL Hct (39.0-53.0) % MCHC (31.0-37.0) g/dL RDW (11.5-15.5) % ABG pH (7.35-7.45) ABG pCO2 (35-45) mmHg ABG Total CO2 (19-24) mmol/L Potassium 5.5 H 5.4 H (3.5-5.1) mmol/L BUN (9-20) mg/dL Creatinine (0.66-1.25) mg/dL POC Glucose (mg/dL) 116 H (75-99) mg/dL Calcium (8.4-10.2) mg/dL Phosphorus (2.5-4.5) mg/dL 09/11/17 09/12/17 09/12/17 Range/Units 20:07 04:23 04:30 WBC 18.7 H (3.8-10.6) k/uL RBC 3.53 L (4.30-5.90) m/uL Hgb 9.0 L (13.0-17.5) gm/dL Hct 30.9 L (39.0-53.0) % MCHC 29.0 L (31.0-37.0) g/dL RDW 18.1 H (11.5-15.5) % ABG pH 7.34 L (7.35-7.45) ABG pCO2 48 H (35-45) mmHg ABG Total CO2 27 H (19-24) mmol/L Potassium (3.5-5.1) mmol/L BUN (9-20) mg/dL Creatinine (0.66-1.25) mg/dL POC Glucose (mg/dL) 113 H (75-99) mg/dL Calcium (8.4-10.2) mg/dL Phosphorus (2.5-4.5) mg/dL 09/12/17 09/12/17 Range/Units 04:30 08:55 WBC (3.8-10.6) k/uL RBC (4.30-5.90) m/uL Hgb (13.0-17.5) gm/dL Hct (39.0-53.0) % MCHC (31.0-37.0) g/dL RDW (11.5-15.5) % ABG pH (7.35-7.45) ABG pCO2 (35-45) mmHg ABG Total CO2 26 H (19-24) mmol/L Potassium 5.2 H (3.5-5.1) mmol/L BUN 67 H (9-20) mg/dL Creatinine 4.80 H (0.66-1.25) mg/dL POC Glucose (mg/dL) (75-99) mg/dL Calcium 7.8 L (8.4-10.2) mg/dL Phosphorus 9.1 H* (2.5-4.5) mg/dL Microbiology - Last 24 Hours (Table) 09/10/17 09:22 Urine Culture - Final Urine,Catheterized 08/25/17 11:00 Fungal Culture - Final Bronchial Washings - Right Hillary glabrata Assessment and Plan Plan: Assessment: #1. Acute kidney injury secondary to ischemic ATN secondary to hypotension, hemodynamic instability and diuresis. Creatinine up to 4.8 today. No evidence of retention. No proteinuria on urinalysis but repeat UA shows 1+ proteinuria which can be nonspecific in the setting of acute kidney injury. Granular casts on UA suggestive of ATN. Urine eosinophils negative. #2. Right-sided pneumonia. Maintained on antibiotics per infectious disease recommendations. Bronchial washings positive for Corynebacterium as well as Hillary albicans. #3. Recurrent mucus plugging status post multiple bronchoscopies this admission. #4. Chronic kidney disease stage III secondary to chronic NSAID use as well as cisplatin. Recently creatinine has been near 1.6-1.8. #5. Acute hypoxic respiratory failure status post bronchoscopy with clearing of mucous plugging. #6. Non-small cell lung cancer being followed by oncology. #7. Hypomagnesemia secondary to diuresis. Improved. #8. Hypocalcemia secondary to acute kidney injury. Improved. Maintained on Os -Clifton D as well as calcitriol. Vitamin D and PTH in the normal range. #9. Hyperphosphatemia secondary to acute kidney injury. #10. Hyperkalemia secondary to acute kidney injury. Improved with medical management. #11. Atrial fibrillation maintained on Cardizem drip. Plan: Continue Os-Clifton and Rocaltrol when able to tolerate oral intake. Maintain PhosLo with meals. Avoid nephrotoxic agents and hypotensive episodes - monitor vancomycin levels closely - goal level 15. Continue to monitor renal function and urine output. Repeat electrolytes in the morning. No urgent need for renal replacement therapy at this time. I did discuss with the patient the potential need for dialysis if renal function further deteriorates. He will discuss with his family and then decide if he wishes to proceed. Repeat potassium level at 6 PM today. Encouraged oral intake.
[2017-09-12] MEDS: BUDESONIDE 1 MG/2 ML NEBU INHALATION SCH ×2 (11:09→19:30)
[2017-09-12] MEDS: FORMOTEROL FUMARATE 20 MCG/2 ML NEBU INHALATION SCH ×2 (11:09→19:30)
[2017-09-12 13:19] LABS: Glucose,Whole Blood 102 mg/dL (75-99)
[2017-09-12 13:19] LABS: Glucose,Whole Blood 105 mg/dL (75-99)
--- NOTE | 2017-09-12 13:37 | P.PN ---
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 hemodialysis in the future -Orthopedics was consulted. Currently signed off. will reconsult if neccessary -Infectious disease on consult. Appreciate recommendations and input -Antibiotic regimen per infectious disease -Monitor labs. repeat in AM -Monitor creatinine. Patient may require hemodialysis -GI prophylaxis: Protonix 40 mg by mouth daily -DVT prophylaxis: APOLINAR hose, heparin subcu has been discontinued per family request as hidradenitis worsens with heparin. -Monitor vital signs and address as appropriate -PT/OT -Discharge planning: ECF is recommended per PT. [facility] discussed and also hospice but patient and state they are not ready for hospice. -Discharge planning discussed with [facility] socially responsible investment adviser, who states patient has been accepted at [facility] when he is stable for discharge The above impression and plan of care have been discussed and directed by signing physician. Tessa Minor, nurse practitioner, acting as scribe for signing physician.
[2017-09-12] MEDS: methylPREDNISolone SOD SUCCI 40 MG/ML 1 ML VIAL IV SCH (16:52)
[2017-09-12] MEDS: FUROSEMIDE 250 MG in SODIUM CHLORIDE 0.9% 225 ML IVP SCH (16:53)
[2017-09-12 17:57] LABS: Glucose,Whole Blood 92 mg/dL (75-99)
[2017-09-12] MEDS: MULTIVITAMINS, THERA 1 EACH TAB PO SCH (21:07)
[2017-09-12 21:13] LABS: Glucose,Whole Blood 111 mg/dL (75-99)
--- NOTE | 2017-09-12 21:39 | P.PN ---
Subjective Progress Note Date: 09/12/17 Principal diagnosis: Respiratory failure 67-year-old male who is well-known to the infectious disease service with as many hospitalizations as well as his hidradenitis. He's had a couple hospitalizations in the last several months that included atrial fibrillation with nonsustained V. tach. He has underlying cardiac murmur. He's had vertigo and acute renal failure. He's had some time at the extended care facility in the past year but is now home Doing relatively well under the care of his . He was hospitalized earlier this year with a bout of congestive heart failure and is in relatively well since that time. The. The patient was bathing and suffered a fall and now presents with severe right sided hip pain. He's been evaluated by orthopedics. The hidradenitis is now being treated with Humira injections at home. This is on Fridays. This has been occurring for the last couple of months now. There is been decreasing amount of drainage. His skin is becoming less erythematous and inflamed. The amount of drainage is improving The family is pleased that there is showing some improvement given the many year history of lack of improvement. However was still must apply large amounts of dressings on a daily basis to contain his drainage. The patient never became progressively more short of breath. Was transferred to intensive care unit. He's been seen by pulmonary and underwent bronchoscopy for removal of large mucous plugging to the right lung. Patient remains on BiPAP but is more stable at this time. Antimicrobial therapy was initiated with concerns to pneumonia with this pulmonary process. Cultures have revealed Moraxella and pseudomonas aeruginosa He has minimal improved pain today. Pulmonary status again was giving him difficulties, and again had bronchoscopy for the seventh time to remove more mucous plugs. Doing well after the bronchoscopy. However is certainly with weakness overall. His had significant amount of sputum production. He had a large mucous plug that he was able to express by the care of his family and a Yonker suction. The patient is starting to show some mild improvement. And there is [facility]. Family however is discontent with this solution and so far away. They are very close family and they will cause some hardship for them to be of the visit him. We discussed there are other options. Initiation of therapy with vancomycin has occurred. The patient however has had significant worsening of his status . He had marked mucous plugging again occurring to the right mainstem bronchus. He also had onset of atrial fibrillation with rapid ventricular response with hemodynamic instability. He required intubation sedated and mechanically ventilated. Has required Cardizem and vasopressor therapy. With all of these events occurring she's now had the significant worsening of his renal function. nephrology is following and is concerned and if he has worsening may consider hemodialysis. Objective - Vital Signs Vital signs: Vital Signs Temp 98 F 09/12/17 16:00 Pulse 92 09/12/17 19:54 Resp 17 09/12/17 18:00 BP 82/64 09/12/17 17:00 Pulse Ox 97 09/12/17 18:00 Intake & Output 09/12/17 09/12/17 09/13/17 06:59 18:59 06:59 Intake Total 812.0 400.833 Output Total 347 225 Balance 465.0 175.833 Weight 157.9 kg Intake: IV 240 240 Sodium Chloride 0.9% 1, 240 240 000 ml @ 20 mls/hr IV . Q24H [facility] Rx#:[id number] Intake, IV Titration 50.0 88.833 Amount Diltiazem 125 mg In 88.833 Sodium Chloride 0.9% 100 ml @ 10 MG/HR 10 mls/hr IV .[id number] [facility] Rx#: [id number] Piperacillin-Tazobactam 3 50.0 .375 gm In Dextrose/Water 1 50ml.bag @ 12.5 mls/hr IVPB Q8H [facility] Rx#: [id number] Tube Feeding 432 72 Other 90 Output: Urine 347 225 Other: Voiding Method Indwelling Catheter Indwelling Catheter ABP, PAP, CO, CI - Last Documented Arterial Blood Pressure 127/59 - Exam Pleasant 67-year-old gentleman who suffers from obesity who is now extubated. HEENT: Anicteric conjunctiva are pink and moist nasal mucosa grossly intact without significant lesions, there is no thrush. Neck: The neck is supple without significant lymphadenopathy or thyromegaly. Lungs: There is symmetrical air entry with evidence of crackles at the the right base Heart: Irregular with an audible S1 and S2 no S3 soft S4 There is no significant murmur click or rub, PMI was nondisplaced. Abdomen: Obese, Positive bowel sounds soft and nontender without palpable masses or organomegaly. There was no guarding or rebound. Extremities: The upper extremities have excellent pulses they are symmetric, no significant petechiae or telangiectasia. No splinter hemorrhages were noted. The left lower extremity is without significant tenderness at this time. Of note he is able to move it himself with only minimal discomfort. There is the chronic drainage without change from last evaluation. He has extensive areas of drainage on the buttocks bilaterally and inner thighs. Neuro: Awake alert and oriented - Labs CBC & Chem 7: 09/12/17 04:30 09/12/17 18:10 Labs: Abnormal Lab Results - Last 24 Hours (Table) 09/12/17 09/12/17 09/12/17 Range/Units 04:23 04:30 04:30 WBC 18.7 H (3.8-10.6) k/uL RBC 3.53 L (4.30-5.90) m/uL Hgb 9.0 L (13.0-17.5) gm/dL Hct 30.9 L (39.0-53.0) % MCHC 29.0 L (31.0-37.0) g/dL RDW 18.1 H (11.5-15.5) % ABG pH 7.34 L (7.35-7.45) ABG pCO2 48 H (35-45) mmHg ABG Total CO2 27 H (19-24) mmol/L Potassium 5.2 H (3.5-5.1) mmol/L BUN 67 H (9-20) mg/dL Creatinine 4.80 H (0.66-1.25) mg/dL POC Glucose (mg/dL) (75-99) mg/dL Calcium 7.8 L (8.4-10.2) mg/dL Phosphorus 9.1 H* (2.5-4.5) mg/dL 09/12/17 09/12/17 09/12/17 Range/Units 08:55 12:22 12:53 WBC (3.8-10.6) k/uL RBC (4.30-5.90) m/uL Hgb (13.0-17.5) gm/dL Hct (39.0-53.0) % MCHC (31.0-37.0) g/dL RDW (11.5-15.5) % ABG pH (7.35-7.45) ABG pCO2 (35-45) mmHg ABG Total CO2 26 H (19-24) mmol/L Potassium (3.5-5.1) mmol/L BUN (9-20) mg/dL Creatinine (0.66-1.25) mg/dL POC Glucose (mg/dL) 105 H 102 H (75-99) mg/dL Calcium (8.4-10.2) mg/dL Phosphorus (2.5-4.5) mg/dL 09/12/17 09/12/17 Range/Units 18:10 21:11 WBC (3.8-10.6) k/uL RBC (4.30-5.90) m/uL Hgb (13.0-17.5) gm/dL Hct (39.0-53.0) % MCHC (31.0-37.0) g/dL RDW (11.5-15.5) % ABG pH (7.35-7.45) ABG pCO2 (35-45) mmHg ABG Total CO2 (19-24) mmol/L Potassium 5.4 H (3.5-5.1) mmol/L BUN (9-20) mg/dL Creatinine (0.66-1.25) mg/dL POC Glucose (mg/dL) 111 H (75-99) mg/dL Calcium (8.4-10.2) mg/dL Phosphorus (2.5-4.5) mg/dL Microbiology - Last 24 Hours (Table) 09/10/17 09:22 Urine Culture - Final Urine,Catheterized Laboratory Results WBC 18.7 k/uL (3.8-10.6) H 09/12/17 04:30 RBC 3.53 m/uL (4.30-5.90) L 09/12/17 04:30 Hgb 9.0 gm/dL (13.0-17.5) L 09/12/17 04:30 Hct 30.9 % (39.0-53.0) L 09/12/17 04:30 MCV 87.6 fL (80.0-100.0) 09/12/17 04:30 MCH 25.4 pg (25.0-35.0) 09/12/17 04:30 MCHC 29.0 g/dL (31.0-37.0) L 09/12/17 04:30 RDW 18.1 % (11.5-15.5) H 09/12/17 04:30 Plt Count 284 k/uL (150-450) 09/12/17 04:30 Neutrophils % 78 % 09/07/17 05:31 Lymphocytes % 10 % 09/07/17 05:31 Monocytes % 6 % 09/07/17 05:31 Eosinophils % 2 % 09/07/17 05:31 Basophils % 0 % 09/07/17 05:31 Neutrophils # 12.6 k/uL (1.3-7.7) H 09/07/17 05:31 Lymphocytes # 1.6 k/uL (1.0-4.8) 09/07/17 05:31 Monocytes # 1.0 k/uL (0-1.0) 09/07/17 05:31 Eosinophils # 0.4 k/uL (0-0.7) 09/07/17 05:31 Basophils # 0.1 k/uL (0-0.2) 09/07/17 05:31 Hypochromasia Marked 09/12/17 04:30 Anisocytosis Slight 09/12/17 04:30 Sample Site A-LINE 09/12/17 08:55 ABG pH 7.38 (7.35-7.45) 09/12/17 08:55 ABG pCO2 43 mmHg (35-45) 09/12/17 08:55 ABG pO2 86 mmHg (83-108) 09/12/17 08:55 ABG HCO3 25 mmol/L (21-25) 09/12/17 08:55 ABG Total CO2 26 mmol/L (19-24) H 09/12/17 08:55 ABG O2 Saturation 96.3 % (94-97) 09/12/17 08:55 ABG Base Excess 0.3 mmol/L 09/12/17 08:55 FiO2 35 % 09/12/17 08:55 Sodium 139 mmol/L (137-145) 09/12/17 04:30 Potassium 5.4 mmol/L (3.5-5.1) H 09/12/17 18:10 Chloride 103 mmol/L (98-107) 09/12/17 04:30 Carbon Dioxide 23 mmol/L (22-30) 09/12/17 04:30 Anion Gap 13 mmol/L 09/12/17 04:30 BUN 67 mg/dL (9-20) H 09/12/17 04:30 Creatinine 4.80 mg/dL (0.66-1.25) H 09/12/17 04:30 Est GFR (MDRD) Af Amer 15 (>60 ml/min/1.73 sqM) 09/12/17 04:30 Est GFR (MDRD) Non-Af 12 (>60 ml/min/1.73 sqM) 09/12/17 04:30 Glucose 99 mg/dL (74-99) 09/12/17 04:30 POC Glucose (mg/dL) 111 mg/dL (75-99) H 09/12/17 21:11 POC Glu [employer] Clerk ID Kali Smith 09/12/17 21:[address] Glu mg/dL 143 mg/dL 08/16/17 07:03 Hemoglobin A1c 6.6 % (4.2-6.1) H 08/16/17 07:03 Plasma Lactic Acid Jose Raul 1.4 mmol/L (0.7-2.0) 09/08/17 23:54 Calcium 7.8 mg/dL (8.4-10.2) L 09/12/17 04:30 Ionized Calcium Liza 4.6 mg/dL (4.5-5.3) 09/11/17 07:23 Phosphorus 9.1 mg/dL (2.5-4.5) H* 09/12/17 04:30 Magnesium 1.9 mg/dL (1.6-2.3) 09/12/17 04:30 Iron 17 ug/dL (65-175) L 09/07/17 05:31 TIBC 175 ug/dL (228-460) L 09/07/17 05:31 Iron Saturation 9.71 (15.00-50.00) L 09/07/17 05:31 Ferritin 313.6 ng/mL (22.0-322.0) 09/07/17 05:31 Total Bilirubin 0.2 mg/dL (0.2-1.3) 08/31/17 04:23 AST 12 U/L (17-59) L 08/31/17 04:23 ALT 30 U/L (21-72) 08/31/17 04:23 Alkaline Phosphatase 104 U/L (38-126) 08/31/17 04:23 Total Protein 7.0 g/dL (6.3-8.2) 08/31/17 04:23 Albumin 2.7 g/dL (3.5-5.0) L 08/31/17 04:23 Vitamin D 25-Hydroxy 31.9 ng/mL (30.0-100.0) 09/06/17 05:27 PTH Intact 22.7 pg/mL (14.0-72.0) 09/06/17 05:27 Cortisol 9 ug/dL 08/17/17 04:38 Urine Color Light Yellow 09/10/17 09:22 Urine Appearance Turbid (Clear) 09/10/17 09:22 Urine pH 5.5 (5.0-8.0) 09/10/17 09:22 Ur Specific [place] 1.012 (1.001-1.035) 09/10/17 09:22 Urine Protein 2+ (Negative) H 09/10/17 09:22 Urine Glucose (UA) Negative (Negative) 09/10/17 09:22 Urine Ketones Negative (Negative) 09/10/17 09:22 Urine Blood Moderate (Negative) H 09/10/17 09:22 Urine Nitrite Negative (Negative) 09/10/17 09:22 Urine Bilirubin Negative (Negative) 09/10/17 09:22 Urine Urobilinogen <2.0 mg/dL (<2.0) 09/10/17 09:22 Ur Leukocyte Esterase Large (Negative) H 09/10/17 09:22 Urine RBC 25 /hpf (0-5) H 09/10/17 09:22 Urine WBC >182 /hpf (0-5) H 09/10/17 09:22 Urine WBC Clumps Many /hpf (None) H 09/10/17 09:22 Ur Squamous Epith Cells 1 /hpf (0-4) 09/10/17 09:22 Urine Bacteria Rare /hpf (None) H 09/10/17 09:22 Cellular Casts 1 /lpf (0) 09/04/17 02:00 Hyaline Casts 3 /lpf (0-2) H 08/14/17 23:45 Granular Casts 175 /lpf (0) 09/04/17 02:00 Urine Mucus Rare /hpf (None) H 08/14/17 23:45 Urine Yeast (Budding) Few /hpf (None) H 09/04/17 02:00 Urine Eosinophils 0 % 09/11/17 13:40 Fluid Source Bronchial Wash 08/25/17 11:00 Fluid Color Red 08/25/17 11:00 Fluid Appearance Bloody 08/25/17 11:00 Fluid RBC 63206 /uL 08/25/17 11:00 Fluid Nucleated Cells 6000 /uL 08/25/17 11:00 Fluid Polynuclear WBCs 99 % 08/25/17 11:00 Fluid Mononuclear WBCs 1 % 08/25/17 11:00 Vancomycin Trough 18.4 ug/mL 09/09/17 09:56 Random Vancomycin 22.2 ug/mL 09/12/17 04:30 Virus Source See Below 08/25/17 11:00 Viral Test See Below 08/25/17 11:00 Virus Analysis Interp See Below 08/25/17 11:00 Microbiology 09/10/17 09:22 Urine,Catheterized Urine Culture - Final 08/25/17 11:00 Bronchial Washings - Right Fungal Culture - Final Hillary glabrata 09/08/17 10:30 Bronchial Washings - Right Gram Stain - Final 09/08/17 10:30 Bronchial Washings - Right Bronchial Washings Culture - Final Corynebacterium striatum 09/04/17 12:00 Bronchial Washings - Right Fungal Culture - Preliminary Hillary albicans 09/04/17 12:00 Bronchial Washings - Right Gram Stain - Final 09/04/17 12:00 Bronchial Washings - Right Bronchial Washings Culture - Final Corynebacterium striatum 08/25/17 11:00 Bronchial Washings - Right Acid Fast Bacilli Smear - Final 08/25/17 11:00 Bronchial Washings - Right Acid Fast Bacilli Culture - Preliminary 09/04/17 08:20 Urine,Clean Catch Urine Culture - Final 09/01/17 14:46 Bronchoalviolar Lavage - Right Gram Stain - Final 09/01/17 14:46 Bronchoalviolar Lavage - Right Bronchial Washings Culture - Final Corynebacterium striatum 08/25/17 11:00 Bronchial Washings - Right Gram Stain - Final 08/25/17 11:00 Bronchial Washings - Right Bronchial Washings Culture - Final Corynebacterium striatum 08/23/17 18:27 Stool Stool Culture - Final - Imaging and Cardiology Chest x-ray: report reviewed (Adequate aeration to the right lung) Assessment and Plan (1) Fall Current Visit: Yes Status: Acute Priority: High Code(s): W19.XXXA - UNSPECIFIED FALL, INITIAL ENCOUNTER SNOMED Code(s): 1345598 (2) Acute right hip pain Current Visit: Yes Status: Acute Code(s): M25.551 - PAIN IN RIGHT HIP SNOMED Code(s): 84769445 (3) Rib pain on left side Current Visit: Yes Status: Acute Code(s): R07.81 - PLEURODYNIA SNOMED Code (s): 799826171 (4) Hidradenitis suppurativa Narrative/Plan: 67-year-old male has multiple medical troubles including his history of squamous cell lung cancer fifth being monitored by oncology. He is followed in the infectious disease office for the treatment of his hidradenitis which is being treated currently with Humira. There has been some improvement of his significant disease state but not resolution. The last office visit the and I agreed that we would continue treatment at least until the next quarter. He tolerated this very well. He has had no worsening of his anemia or renal failure . While in hospital his Humira is on hold. Continues to have significant pain to the right hip because of the fall. Orthopedics is following. Orthopedics apparently does not believe that there is a fracture and just has a hyperextension injury. And they will follow as needed. Underwent another bronchoscopy today for his recurrent mucus plugging For antimicrobial therapy with the isolation of the Moraxella and Pseudomonas, ceftazidime was initiated at 2 g IV piggyback every 8 hours He is much more comfortable today from the right hip pain. As has noted dressings are not needed just have him on a drainage had and allow the drainage from his large draining sinus tracts to be absorbed into the pads. He's had his seventh bronchoscopy and is doing well postop. He is doing well with current antimicrobial therapy, pulmonary toileting and positioning. We'll plan at least 10-14 days of ceftaz and after his last bronch and the PICC line has been placed Patient's Humira is on hold and this will be discussed and outpatient visits if this is be prudent for further use at this time with the biggest concerns will be his overall status. Requiring frequent bronchoscopies is problematic. The pulmonary critical care team has discussed the [facility]. He appears to be too complex for a standard extended care facility. The family has noted is somewhat discontent with this because of such a far site. They would have difficulty visiting him. We discussed other options doing this at this time. He has now been hospitalized for 21 days with very little improvement of his status. He has underlying lung disease and is a history of lung carcinoma from 5 years ago status post resection. He appears to have ongoing worsening of his status and is having difficulty recovering from the current bout of pneumonia. It is related to family that the last 3 cultures have all failed to show the Pseudomonas. It does appear that the infection itself has done better. However continues to have ongoing great difficulties with his pulmonary status. If they do not believe that is possible for [facility] to [facility], and they do not believe he is going to improve any further then there will be option for palliative care and hospice. As noted there was concerns of potential aspiration as well as the corynebacterium species and antimicrobial therapy was altered to Zosyn and vancomycin. The patient's renal function has definitely changed, however is occurred rapidly and since he's only had a few doses of vancomycin is not the likely etiology. Pharmacy will dose based on his altering renal function. Given his recurrent pneumonia vancomycin is required at this time. The patient's status declined. He required intubation and sedation with mechanical ventilation. Bronchoscopy performed again with extensive mucous plugging . Post-bronchoscopy evidence of much improved aeration to the residual right upper lobe. Patient a developed atrial fibrillation with rapid ventricular response and became hemodynamically unstable, this is now improved. He is off vasopressor therapy, He is improved as noted. He has been extubated. He is hemodynamic stable. Off of vasopressor therapy. With his illness his chronic renal failure has worsened. Urine output is poor. The family is clear that they do not want tracheotomy. Consequently if he is chronically ventilator dependent than an alternative plan will occur. At this time he remains on current antimicrobial therapy of Zosyn and vancomycin based on concerns to aspiration and isolated pathogens. NO Alternative for vancomycin at this time. Daptomycin has no pulmonary activity. Nephrology is following. Current Visit: Yes Status: Acute Code(s): L73.2 - HIDRADENITIS SUPPURATIVA SNOMED Code(s): 59700742
[2017-09-13 01:59] LABS: ABG Base Excess -3.7 mmol/L; ABG HCO3 21 mmol/L (21-25); ABG PCO2 38 mmHg (35-45); ABG PH 7.36 (7.35-7.45); ABG PO2 74 mmHg (83-108); ABG TCO2 22 mmol/L (19-24)
[2017-09-13] MEDS: methylPREDNISolone SOD SUCCI 40 MG/ML 1 ML VIAL IV SCH ×2 (02:36→08:42)
[2017-09-13] MEDS: HYDROmorphone 1 MG/ML 1 ML SYRINGE IVP PRN ×2 (02:47→11:26)
[2017-09-13 04:48] LABS: Anisocytosis Slight; Basophils # (A) 0.1 k/uL (0-0.2); Basophils % (A) 0 %; CH 25.1; Eosinophils % (A) 0 %; HCT 36.7 % (39.0-53.0); HDW 2.61; HGB 10.6 gm/dL (13.0-17.5); Hypochromasia Marked; Luc # (Auto) 0.16; Luc % (Auto) 1; Lymphocytes # (A) 1.5 k/uL (1.0-4.8); Lymphocytes % (A) 6 %; MCH 25.1 pg (25.0-35.0); MCHC 28.9 g/dL (31.0-37.0); MCV 86.7 fL (80.0-100.0); Mean Platelet Volume 7.2; Monocytes # (A) 1.2 k/uL (0-1.0); Monocytes % (A) 4 %; Neutrophils # (A) 24.9 k/uL (1.3-7.7); Neutrophils % (A) 89 %; RBC 4.23 m/uL (4.30-5.90); RDW 16.6 % (11.5-15.5); WBC (Perox) 26.82
[2017-09-13 05:00] LABS: Calcium 8.2 mg/dL (8.4-10.2); Magnesium 2.3 mg/dL (1.6-2.3)
[2017-09-13 05:06] LABS: WBC 27.9 k/uL (3.8-10.6)
[2017-09-13 05:25] LABS: Potassium 7.1 mmol/L (3.5-5.1)
[2017-09-13] MEDS ORDERED: DEXTROSE 50%-WATER 50 ML SYRINGE IVP STA ×2 (06:08→11:10)
[2017-09-13] MEDS ORDERED: CALCIUM GLUCONATE 1,000 MG in SODIUM CHLORIDE 0.9% 100 ML IVPB ONE (06:08)
[2017-09-13] MEDS ORDERED: INSULIN REGULAR 100 UNIT/ML VIAL IV ONE ×2 (06:09→11:34)
[2017-09-13] MEDS ORDERED: SODIUM BICARB 8.4% 50 ML VIAL (1 MEQ/ML) IV ONE (06:15)
[2017-09-13] MEDS: SODIUM CHLORIDE 0.9% 1,000 ML IV SCH (06:39)
[2017-09-13 07:17] LABS: Glucose,Whole Blood 153 mg/dL (75-99)
[2017-09-13 07:36] LABS: Glucose,Whole Blood 124 mg/dL (75-99)
[2017-09-13] MEDS: IPRATROPIUM-ALBUTEROL 3 ML NEB INHALATION SCH ×2 (08:12→11:19)
[2017-09-13] MEDS: FORMOTEROL FUMARATE 20 MCG/2 ML NEBU INHALATION SCH (08:12)
[2017-09-13] MEDS: BUDESONIDE 1 MG/2 ML NEBU INHALATION SCH (08:12)
[2017-09-13] MEDS ORDERED: FUROSEMIDE 10 MG/ML 10 ML VIAL IV STA (08:13)
[2017-09-13] MEDS: DILTIAZEM 125 MG in SODIUM CHLORIDE 0.9% 100 ML IV SCH (08:33)
[2017-09-13] MEDS: PIPERACILLIN-TAZOBACTAM 3.375 GM in DEXTROSE/WATER 1 50ML.BAG IVPB SCH (08:33)
[2017-09-13] MEDS: CALCIUM ACETATE 667 MG CAP PO SCH ×2 (08:34→11:30)
[2017-09-13] MEDS: CALCIUM CARB-VIT D 500MG-200UN 1 EACH TAB PO SCH (08:34)
[2017-09-13] MEDS: INSULIN LISPRO (humaLOG) 300 UNIT/3 ML VIAL SQ SCH ×2 (08:41→16:03)
[2017-09-13 08:53] LABS: Glucose,Whole Blood 138 mg/dL (75-99)
[2017-09-13] MEDS: CHLORHEXIDINE GLUCONATE 15 ML CUP MUCOUS MEM SCH (09:11)
[2017-09-13] MEDS: ALLOPURINOL 100 MG TAB PO SCH (09:11)
[2017-09-13] MEDS: METOPROLOL TARTRATE 50 MG TAB PO SCH (09:12)
[2017-09-13] MEDS: PANTOPRAZOLE 40 MG/10 ML VIAL IVP SCH (09:12)
[2017-09-13] MEDS: BACITRACIN 500 UNIT/GM OINT 28.4 GM TUBE TOPICAL SCH (09:12)
[2017-09-13] MEDS: LIDOCAINE 5% PATCH TOPICAL SCH (09:12)
[2017-09-13] MEDS: LINAGLIPTIN 5 MG TABLET PO SCH (09:12)
[2017-09-13] MEDS: CITALOPRAM HYDROBROMIDE 20 MG TAB PO SCH (09:12)
--- NOTE | 2017-09-13 10:06 | P.PCN ---
Date of Procedure: 09/13/17 Preoperative Diagnosis: Acute Renal failure with hyperkalemia Postoperative Diagnosis: Same Procedure(s) Performed: Insertion of temporary hemodialysis catheter via right femoral vein for emergency hemodialysis Anesthesia: local Surgeon: Milind Kaminski IV fluids (ml): 30 Pathology: none sent Condition: stable Disposition: no change Indications for Procedure: The patient has had multiple issues's status post hip fracture repair. He is developed renal failure and had a rather abrupt elevation of his potassium and creatinine. Operative Findings: No abnormalities were seen on inserting the hemodialysis catheter Description of Procedure: With the patient in supine position we prepped the right groin in standard fashion. It was sterilely draped. We anesthetized with 1% lidocaine. Due to his obesity we visualized the femoral vein utilizing ultrasound. It was accessed by an 18-gauge needle. Guidewire was placed through the needle and the needle was removed. We used progressively larger dilators over the guidewire in standard Seldinger fashion. We then placed the cath for dialysis catheter over the guidewire in likewise fashion. The guidewire was removed. It was charged with a standard heparin solution. There was good blood return from each lumen. We secured to the skin with silk sutures. Sterile dressings were applied. The patient tolerated the procedure well.
--- NOTE | 2017-09-13 10:07 | P.PN ---
Subjective Patient is seen in follow-up for acute kidney injury on chronic kidney disease. Patient has chronic kidney disease stage III secondary to chronic NSAID use and cisplatin toxicity with baseline creatinine near 1.6-1.8 recently. Renal function has been worsening over the last few days and creatinine is up to 5 today. His urine output is about 10 mL an hour. He was extubated on September 12. He is maintained on a Cardizem drip for atrial fibrillation. Patient is being treated for pneumonia and has undergone multiple bronchoscopies this admission for recurrent collapse of the right lung. Family has been refusing the tracheostomy. On September 08 he became quite hypotensive requiring high dose of vasopressors which have now been discontinued. Patient is currently awake and alert. He was to eat but failed his swallow eval. Potassium level VII.1 this morning for which she did receive 10 units of IV insulin along with sodium bicarbonate, Lasix and IV calcium gluconate. Vital signs stable. Heart rate 102. General: The patient appeared well nourished and normally developed. Intubated. HEENT: Head exam is unremarkable. Neck is without jugular venous distension. LUNGS: Scattered rhonchi. Breath sounds decreased. HEART: Irregular rate and rhythm. First and second heart sounds normal. No murmurs, rubs or gallops. ABDOMEN: Abdominal exam reveals normal bowel sounds. Non-tender and non- distended. No evidence of peritonitis. EXTREMITITES: No edema. Objective - Vital Signs Vital signs: Vital Signs Temp 98.5 F 09/13/17 08:00 Pulse 101 H 09/13/17 09:00 Resp 34 H 09/13/17 09:00 BP 107/75 09/13/17 09:00 Pulse Ox 98 09/13/17 09:00 Intake & Output 09/12/17 09/13/17 09/13/17 18:59 06:59 18:59 Intake Total 400.833 405.000 160 Output Total 225 175 45 Balance 175.833 230.000 115 Weight 156.1 kg Intake: IV 240 280 60 Piperacillin-Tazobactam 3 50 .375 gm In Dextrose/Water 1 50ml.bag @ 12.5 mls/hr IVPB Q8HR [facility] Rx#: [id number] Sodium Chloride 0.9% 1, 240 230 60 000 ml @ 20 mls/hr IV . Q24H [facility] Rx#:[id number] Intake, IV Titration 88.833 125.000 100 Amount Calcium Gluconate 1,000 100 mg In Sodium Chloride 0.9 % 100 ml @ 100 mls/hr IVPB ONCE ONE Rx#: [id number] Diltiazem 125 mg In 88.833 125.000 Sodium Chloride 0.9% 100 ml @ 10 MG/HR 10 mls/hr IV .[id number] [facility] Rx#: [id number] Tube Feeding 72 Output: Urine 225 175 45 Other: Voiding Method Indwelling Catheter Indwelling Catheter Indwelling Catheter ABP, PAP, CO, CI - Last Documented Arterial Blood Pressure 136/62 - Labs CBC & Chem 7: 09/13/17 04:15 09/13/17 04:15 Labs: Abnormal Lab Results - Last 24 Hours (Table) 09/12/17 09/12/17 09/12/17 Range/Units 12:22 12:53 18:10 WBC (3.8-10.6) k/uL RBC (4.30-5.90) m/uL Hgb (13.0-17.5) gm/dL Hct (39.0-53.0) % MCHC (31.0-37.0) g/dL RDW (11.5-15.5) % Neutrophils # (1.3-7.7) k/uL Monocytes # (0-1.0) k/uL ABG pO2 (83-108) mmHg Potassium 5.4 H (3.5-5.1) mmol/L Carbon Dioxide (22-30) mmol/L BUN (9-20) mg/dL Creatinine (0.66-1.25) mg/dL Glucose (74-99) mg/dL POC Glucose (mg/dL) 105 H 102 H (75-99) mg/dL Calcium (8.4-10.2) mg/dL 09/12/17 09/13/17 09/13/17 Range/Units 21:11 01:40 04:15 WBC (3.8-10.6) k/uL RBC (4.30-5.90) m/uL Hgb (13.0-17.5) gm/dL Hct (39.0-53.0) % MCHC (31.0-37.0) g/dL RDW (11.5-15.5) % Neutrophils # (1.3-7.7) k/uL Monocytes # (0-1.0) k/uL ABG pO2 74 L (83-108) mmHg Potassium 7.1 H* (3.5-5.1) mmol/L Carbon Dioxide 18 L (22-30) mmol/L BUN 78 H (9-20) mg/dL Creatinine 5.00 H* (0.66-1.25) mg/dL Glucose 109 H (74-99) mg/dL POC Glucose (mg/dL) 111 H (75-99) mg/dL Calcium 8.2 L (8.4-10.2) mg/dL 09/13/17 09/13/17 09/13/17 Range/Units 04:15 07:04 07:34 WBC 27.9 H* (3.8-10.6) k/uL RBC 4.23 L (4.30-5.90) m/uL Hgb 10.6 L (13.0-17.5) gm/dL Hct 36.7 L (39.0-53.0) % MCHC 28.9 L (31.0-37.0) g/dL RDW 16.6 H (11.5-15.5) % Neutrophils # 24.9 H (1.3-7.7) k/uL Monocytes # 1.2 H (0-1.0) k/uL ABG pO2 (83-108) mmHg Potassium (3.5-5.1) mmol/L Carbon Dioxide (22-30) mmol/L BUN (9-20) mg/dL Creatinine (0.66-1.25) mg/dL Glucose (74-99) mg/dL POC Glucose (mg/dL) 153 H 124 H (75-99) mg/dL Calcium (8.4-10.2) mg/dL 09/13/17 Range/Units 08:38 WBC (3.8-10.6) k/uL RBC (4.30-5.90) m/uL Hgb (13.0-17.5) gm/dL Hct (39.0-53.0) % MCHC (31.0-37.0) g/dL RDW (11.5-15.5) % Neutrophils # (1.3-7.7) k/uL Monocytes # (0-1.0) k/uL ABG pO2 (83-108) mmHg Potassium (3.5-5.1) mmol/L Carbon Dioxide (22-30) mmol/L BUN (9-20) mg/dL Creatinine (0.66-1.25) mg/dL Glucose (74-99) mg/dL POC Glucose (mg/dL) 138 H (75-99) mg/dL Calcium (8.4-10.2) mg/dL Microbiology - Last 24 Hours (Table) 08/25/17 11:00 Acid Fast Bacilli Smear - Final Bronchial Washings - Right Acid Fast Bacilli Culture - Preliminary Assessment and Plan Plan: Assessment: #1. Acute kidney injury secondary to ischemic ATN secondary to hypotension, hemodynamic instability and diuresis. Creatinine up to 5 today. No evidence of retention. No proteinuria on urinalysis but repeat UA shows 1+ proteinuria which can be nonspecific in the setting of acute kidney injury. Granular casts on UA suggestive of ATN. Urine eosinophils negative. #2. Right-sided pneumonia. Maintained on antibiotics per infectious disease recommendations. Bronchial washings positive for Corynebacterium as well as Hillary albicans. #3. Recurrent mucus plugging status post multiple bronchoscopies this admission. #4. Chronic kidney disease stage III secondary to chronic NSAID use as well as cisplatin. Recently creatinine has been near 1.6-1.8. #5. Acute hypoxic respiratory failure status post bronchoscopy with clearing of mucous plugging. #6. Non-small cell lung cancer being followed by oncology. #7. Hypomagnesemia secondary to diuresis. Improved. #8. Hypocalcemia secondary to acute kidney injury. Improved. Maintained on Os -Clifton D as well as calcitriol. Vitamin D and PTH in the normal range. #9. Hyperphosphatemia secondary to acute kidney injury. #10. Hyperkalemia secondary to acute kidney injury and metabolic acidosis. #11. Atrial fibrillation maintained on Cardizem drip. #12. Metabolic acidosis secondary to acute kidney injury. Plan: Continue Os-Clifton and Rocaltrol when able to tolerate oral intake. Maintain PhosLo with meals. Avoid nephrotoxic agents and hypotensive episodes - monitor vancomycin levels closely - goal level 15. Continue to monitor renal function and urine output. Repeat potassium level now. Patient did receive 1 g of IV calcium gluconate, 80 mg of IV Lasix, 10 units of IV insulin with amp of D50 this morning. Vascular surgery did put in a femoral catheter this morning. Will plan for first treatment of hemodialysis today.
--- NOTE | 2017-09-13 10:10 | XR ---
EXAMINATION TYPE: XR chest 1V portable DATE OF EXAM: 09/13/2017 COMPARISON: Prior chest x-ray 09/12/2017 HISTORY: Shortness of breath TECHNIQUE: Single frontal view of the chest is obtained. FINDINGS: There is been interval extubation, removal of the NG tube. No other significant interval c hange. IMPRESSION: Interval extubation.
--- NOTE | 2017-09-13 10:51 | P.CON ---
Consult Note - . Consult date: 09/13/17 Assessment/Plan:: This patient has suffered from multiple complications following his ORIF of the hip. He had a pneumonia and was intubated. He has developed renal failure. He has developed a dramatically elevated creatinine and potassium. Physical examination reveals an obese 67-year-old gentleman on a nasal cannula and fairly comfortable. Lungs show moderate rhonchi. Abdomen is benign. He has about 2+ bilateral lower extremity edema. He has palpable femoral pulses. I discussed with the patient the procedure of temporal dialysis catheter. We will utilize the right femoral due to his acute status.
[2017-09-13 11:06] LABS: Phosphorous 11.1 mg/dL (2.5-4.5); Potassium 6.3 mmol/L (3.5-5.1)
[2017-09-13] MEDS: INSULIN REGULAR 100 UNIT/ML VIAL SQ ONE ×2 (11:27→11:35)
[2017-09-13 12:24] LABS: Glucose,Whole Blood 128 mg/dL (75-99)
[2017-09-13] MEDS ORDERED: HEPARIN SODIUM,PORCINE 5,000 UNIT/ML 1 ML VIAL ONE (14:00)
--- NOTE | 2017-09-13 14:11 | P.PN ---
Subjective Progress Note Date: 09/13/17 Principal diagnosis: Right-sided consolidation secondary to pseudomonas aeruginosa The patient is seen again today 09/12/2017 in follow-up in the intensive care unit. He remains intubated and on the mechanical ventilator with current settings of assist control of 16, tidal volume 500, FiO2 35% and a PEEP of 5. Morning blood gases revealed a PaO2 of 89, pCO2 48, pH 7.34. He is maintained on a 0.9 normal saline drip at [place], Cardizem drip at 5 mg per hour, vital HPE tube feedings at 36 mL per hour which is his goal. The propofol is currently off he is getting a daily interruption of sedation and weaning trials. He'll be placed on pressure support of 10 in the CPAP of 5. He is currently awake and alert and following simple commands. His chest x-ray continues to show component of interstitial lung disease with some pulmonary venous hypertension and interstitial edema more so on the right lung. Left-sided PICC line remains in place. No evidence of a pneumothorax. Current white count 18.7, hemoglobin 9.0. BUN 67 creatinine 4.80. His Lasix drip was discontinued. His last dose was Lasix 80 mg IV push times one yesterday morning. He remains on DuoNeb inhalations every 4 hours. He remains on vancomycin and Zosyn. The patient is seen again today 09/13/2017 in follow-up in the intensive care unit. He was successfully extubated yesterday. He is awake and alert in no acute distress. He is maintaining good O2 saturations in the 90s on 4 L/m per nasal cannula. He continues with a loose nonproductive cough. He denies any worsening shortness of breath. His has a 0.9 normal saline at 20 miles per hour. The plan is for hemodialysis catheter placement today and subsequent hemodialysis. He has been seen and evaluated by nephrology. He received 1 g of IV calcium gluconate, 80 mg of IV Lasix, 10 units of IV insulin with an amp of D50 this morning. Hemodynamically stable. Currently not on any pressors. He remains in atrial fibrillation with continued tachycardia. He has a Cardizem drip currently at 18 mg per hour. He remains on vancomycin and Zosyn. Objective - Vital Signs Vital signs: Vital Signs Temp 97.9 F 09/13/17 12:00 Pulse 106 H 09/13/17 14:00 Resp 22 09/13/17 14:00 BP 100/75 09/13/17 14:00 Pulse Ox 93 L 09/13/17 14:00 Intake & Output 09/12/17 09/13/17 09/13/17 18:59 06:59 18:59 Intake Total 400.833 405.000 260 Output Total 225 175 115 Balance 175.833 230.000 145 Weight 156.1 kg Intake: IV 240 280 160 Piperacillin-Tazobactam 3 50 .375 gm In Dextrose/Water 1 50ml.bag @ 12.5 mls/hr IVPB Q8HR [facility] Rx#: [id number] Sodium Chloride 0.9% 1, 240 230 160 000 ml @ 20 mls/hr IV . Q24H [facility] Rx#:[id number] Intake, IV Titration 88.833 125.000 100 Amount Calcium Gluconate 1,000 100 mg In Sodium Chloride 0.9 % 100 ml @ 100 mls/hr IVPB ONCE ONE Rx#: [id number] Diltiazem 125 mg In 88.833 125.000 Sodium Chloride 0.9% 100 ml @ 10 MG/HR 10 mls/hr IV .[id number] [facility] Rx#: [id number] Tube Feeding 72 Output: Urine 225 175 115 Other: Voiding Method Indwelling Catheter Indwelling Catheter Indwelling Catheter ABP, PAP, CO, CI - Last Documented Arterial Blood Pressure 136/62 - Exam GENERAL EXAM: Alert, comfortable in no apparent distress. HEAD: Normocephalic. EYES: Normal reaction of pupils, equal size. NOSE: Clear with pink turbinates. THROAT: No erythema or exudates. NECK: No masses, no JVD. CHEST: No chest wall deformity. LUNGS: Equal air entry with bilateral scattered rhonchi crackles in the right upper lung. CVS: S1 and S2 normal with no audible murmurs, irregular rhythm. ABDOMEN: No hepatosplenomegaly, normal bowel sounds, no guarding or rigidity. SPINE: No scoliosis or deformity SKIN: No rashes CENTRAL NERVOUS SYSTEM: No focal deficits, tone is normal in all 4 extremities. Extremities: There is 1+ peripheral edema. No clubbing, no cyanosis. Peripheral pulses are intact. - Labs CBC & Chem 7: 09/13/17 04:15 09/13/17 10:31 Labs: Abnormal Lab Results - Last 24 Hours (Table) 09/12/17 09/12/17 09/13/17 Range/Units 18:10 21:11 01:40 WBC (3.8-10.6) k/uL RBC (4.30-5.90) m/uL Hgb (13.0-17.5) gm/dL Hct (39.0-53.0) % MCHC (31.0-37.0) g/dL RDW (11.5-15.5) % Neutrophils # (1.3-7.7) k/uL Monocytes # (0-1.0) k/uL ABG pO2 74 L (83-108) mmHg Potassium 5.4 H (3.5-5.1) mmol/L Carbon Dioxide (22-30) mmol/L BUN (9-20) mg/dL Creatinine (0.66-1.25) mg/dL Glucose (74-99) mg/dL POC Glucose (mg/dL) 111 H (75-99) mg/dL Calcium (8.4-10.2) mg/dL Phosphorus (2.5-4.5) mg/dL 09/13/17 09/13/17 09/13/17 Range/Units 04:15 04:15 07:04 WBC 27.9 H* (3.8-10.6) k/uL RBC 4.23 L (4.30-5.90) m/uL Hgb 10.6 L (13.0-17.5) gm/dL Hct 36.7 L (39.0-53.0) % MCHC 28.9 L (31.0-37.0) g/dL RDW 16.6 H (11.5-15.5) % Neutrophils # 24.9 H (1.3-7.7) k/uL Monocytes # 1.2 H (0-1.0) k/uL ABG pO2 (83-108) mmHg Potassium 7.1 H* (3.5-5.1) mmol/L Carbon Dioxide 18 L (22-30) mmol/L BUN 78 H (9-20) mg/dL Creatinine 5.00 H* (0.66-1.25) mg/dL Glucose 109 H (74-99) mg/dL POC Glucose (mg/dL) 153 H (75-99) mg/dL Calcium 8.2 L (8.4-10.2) mg/dL Phosphorus (2.5-4.5) mg/dL 09/13/17 09/13/17 09/13/17 Range/Units 07:34 08:38 10:31 WBC (3.8-10.6) k/uL RBC (4.30-5.90) m/uL Hgb (13.0-17.5) gm/dL Hct (39.0-53.0) % MCHC (31.0-37.0) g/dL RDW (11.5-15.5) % Neutrophils # (1.3-7.7) k/uL Monocytes # (0-1.0) k/uL ABG pO2 (83-108) mmHg Potassium 6.3 H* (3.5-5.1) mmol/L Carbon Dioxide (22-30) mmol/L BUN (9-20) mg/dL Creatinine (0.66-1.25) mg/dL Glucose (74-99) mg/dL POC Glucose (mg/dL) 124 H 138 H (75-99) mg/dL Calcium (8.4-10.2) mg/dL Phosphorus 11.1 H* (2.5-4.5) mg/dL 09/13/17 Range/Units 12:21 WBC (3.8-10.6) k/uL RBC (4.30-5.90) m/uL Hgb (13.0-17.5) gm/dL Hct (39.0-53.0) % MCHC (31.0-37.0) g/dL RDW (11.5-15.5) % Neutrophils # (1.3-7.7) k/uL Monocytes # (0-1.0) k/uL ABG pO2 (83-108) mmHg Potassium (3.5-5.1) mmol/L Carbon Dioxide (22-30) mmol/L BUN (9-20) mg/dL Creatinine (0.66-1.25) mg/dL Glucose (74-99) mg/dL POC Glucose (mg/dL) 128 H (75-99) mg/dL Calcium (8.4-10.2) mg/dL Phosphorus (2.5-4.5) mg/dL Microbiology - Last 24 Hours (Table) 08/25/17 11:00 Acid Fast Bacilli Smear - Final Bronchial Washings - Right Acid Fast Bacilli Culture - Preliminary Assessment and Plan Plan: Impression: #1 Acute on chronic systolic congestive heart failure. #2 Atrial fibrillation with varying ventricular response. #3 Acute right lung pneumonia, secondary to pseudomonas aeruginosa. He completed his course of ceftazidime. Follow-up bronchoscopy washings revealed no growth. Multiple bronchoscopies with BAL this admission. Most recently . #4 Acute hypoxic respiratory failure secondary to above requiring intubation and mechanical ventilatory support on 09/08/2017. Extubated on 09/12/2017. #5 Diabetes mellitus, type II. #6 History of CVA. #7 Hypertension. #8 History of lung, non-small cell carcinoma. History of right lower lobectomy #9 Hyperlipidemia. #10 Renal insufficiency with worsening creatinine, currently 4.80. #11 Ventricular tachycardia. #12 Acute fall status post with right hip pain, negative for fracture. Plan: The patient was seen and evaluated by Dr. Bañuelos. His chest x-ray and labs were reviewed. The patient is currently stable from the pulmonary standpoint and maintaining good O2 saturations in the mid 90s on 3 L/m per nasal cannula. BiPAP will remain at the bedside and will be utilized if necessary. Continue full pulmonary toileting, continue the incentive spirometer and cough and deep breathing exercises. Continue bronchodilators. Continue Pulmicort and Perforomist inhalations twice a day. Continue Solu-Medrol 40 mg every 8 hours IV push for now. Continue antibiotics in the form of vancomycin and Zosyn. A hemodialysis catheter will be placed and the plan is for dialysis today. We'll continue to monitor him here closely in the intensive care unit. We will continue to follow. Critical care time 34 minutes. I performed a history and physical on the patient. Lung sounds continue with scattered rhonchi more so on the right with crackles in the right lung. He remains on 3 L/m per nasal cannula maintaining O2 saturation in the low 90s. BiPAP will remain at the bedside. I discussed the findings along with the assessment and plan of care with my nurse practitioner, Princess Grossman. I attest to the above note as dictated by her. Time with Patient: Greater than 30
--- NOTE | 2017-09-13 14:28 | P.TRANS ---
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 RT-BID MAXWELL Administration Hydromorphone HCl 1 mg 09/08/17 11:16 09/13/17 11:26 Dilaudid IVP 1 mg Q2HR PRN Administration Pain Sodium Chloride 1,000 mls @ 20 mls/hr 08/16/17 21:45 09/13/17 06:39 Saline 0.9% IV 20 mls/hr .Q24H MAXWELL Administration Diltiazem HCl 125 mg/ Sodium 125 mls @ 10 mls/hr 09/08/17 10:00 09/13/17 08: 33 Chloride IV 18 mg/hr .[id number] MAXWELL 18 mls/hr Protocol Administration 10 MG/HR Propofol 1,000 mg in 100 mls @ 0 mls/hr 09/08/17 13:30 09/11/17 09:30 Diprivan IV 0 mcg/kg/min .Q0M MAXWELL 0 mls/hr Protocol Titration Titrate Furosemide 250 mg/ Sodium 250 mls @ 10 mls/hr 09/09/17 17:30 09/12/17 16:53 Chloride IVP Not Given .Q24H MAXWELL 10 MG/HR Piperacillin/Tazobactam/ 50 mls @ 12.5 mls/hr 09/12/17 19:00 09/13/17 08:33 Dextrose 3.375 gm/ IV Solution IVPB 12.5 mls/hr Q12H MAXWELL Administration Vancomycin HCl 2,000 mg/ 500 mls @ 167 mls/hr 09/14/17 06:00 Sodium Chloride IVPB 09/14/17 08:59 ONCE ONE Insulin Human Lispro 0 unit 08/28/17 18:30 09/13/17 08:41 Humalog SQ Not Given ACHS [facility], [facility]1983 Protocol Lidocaine 2 patch 08/23/17 09:30 09/13/17 09:12 Lidoderm TOPICAL Not Given DAILY [facility], [facility]1983 Linagliptin 5 mg 08/15/17 09:00 09/13/17 09:12 Tradjenta PO Not Given DAILY [facility]1983 Loperamide HCl 2 mg 08/23/17 08:55 09/04/17 08:59 Imodium PO 2 mg QID PRN Administration Diarrhea Methylprednisolone Sodium Succinate 40 mg 09/12/17 16:00 09/13/17 08:42 Solu-Medrol IV 40 mg Q8HR MAXWELL Administration Metoprolol Tartrate 50 mg 09/07/17 09:00 09/13/17 09:12 Lopressor PO Not Given BID [facility], [facility]1983 Miscellaneous Information 1 each 09/09/17 12:28 Pharmacy To Dose Iv Vancomycin MISCELLANE DIRECTED PRN Per Protocol Miscellaneous Information 1 each 09/12/17 05:37 Magnesium Per Protocol MISCELLANE DAILY PRN Per Protocol Protocol Morphine Sulfate 2 mg 09/08/17 13:53 Morphine Sulfate (Inj) IVP Q4HR PRN Severe Pain Multivitamins 1 each 08/15/17 21:00 09/12/17 21:07 Theragran PO Not Given HS MAXWELL Naloxone HCl 0.2 mg 08/14/17 17:15 Narcan IV Q2M PRN Opioid Reversal Ondansetron HCl 4 mg 08/14/17 17:15 08/15/17 18:45 Zofran IVP 4 mg Q8HR PRN Administration Nausea And Vomiting Pantoprazole Sodium 40 mg 09/09/17 09:30 09/13/17 09:12 Protonix IVP 40 mg DAILY MAXWELL Administration Follow up Appointment(s)/Referral(s): Gina Katz NPC [Nurse Practitioner] - 09/12/17 1:00 pm (THIS IS AT THE OFFICE [facility] ) Javid Hardy MD [STAFF PHYSICIAN] - 2 Weeks Joel Flores Jr, DO [Primary Care Provider] - 1-2 days (1-2 days after discharge from hospital) Ambulatory/Diagnostic Orders: Complete Blood Count w/diff [LAB.AMB] Location: Determined By Patient Comprehensive Metabolic Panel [LAB.AMB] Location: Determined By Patient Discharge Disposition: OTHER INSTITUTION NOT DEFINED
[2017-09-13 16:48] VITALS: BP 114/72; PULSE 110; RESP 24; TEMP 98.2
[2017-09-14] MEDS ORDERED: VANCOMYCIN 2,000 MG in SODIUM CHLORIDE 0.9% 500 ML IVPB ONE (06:00)
== END 2017-09-13 16:27 | disposition short-term general hospital (02) | DRG 987 ==
LOC: EC 14:13 → 5MS5E 17:14 → 5ONC 18:00 → 6ICU 08-16 08:40 → 6SEL 08-22 20:47 → 6ICU 08-28 11:11 → 6SEL 08-31 13:12 → 6ICU 09-08 09:47
PROVIDERS: ADMIT Family Medicine; ATTEND Family Medicine
PROC: 0BC38ZZ Extirpation of Matter from Right Main Bronchus, Via Natural or Artificial Opening Endoscopic (ICD-10-PCS; principal; 2017-08-16 07:30)
PROC: 0BC28ZZ Extirpation of Matter from Carina, Via Natural or Artificial Opening Endoscopic (ICD-10-PCS; principal; 2017-08-16 07:30)
PROC: 0BC78ZZ Extirpation of Matter from Left Main Bronchus, Via Natural or Artificial Opening Endoscopic (ICD-10-PCS; principal; 2017-08-16 07:30)
PROC: 0BC58ZZ Extirpation of Matter from Right Middle Lobe Bronchus, Via Natural or Artificial Opening Endoscopic (ICD-10-PCS; 2017-08-18)
PROC: 0BC68ZZ Extirpation of Matter from Right Lower Lobe Bronchus, Via Natural or Artificial Opening Endoscopic (ICD-10-PCS; 2017-08-18)
PROC: 0BC38ZZ Extirpation of Matter from Right Main Bronchus, Via Natural or Artificial Opening Endoscopic (ICD-10-PCS; 2017-08-18)
PROC: 0BC48ZZ Extirpation of Matter from Right Upper Lobe Bronchus, Via Natural or Artificial Opening Endoscopic (ICD-10-PCS; 2017-08-20)
PROC: 0BC38ZZ Extirpation of Matter from Right Main Bronchus, Via Natural or Artificial Opening Endoscopic (ICD-10-PCS; 2017-08-20)
PROC: 0B9J8ZX Drainage of Left Lower Lung Lobe, Via Natural or Artificial Opening Endoscopic, Diagnostic (ICD-10-PCS; 2017-08-25)
PROC: 0B9G8ZX Drainage of Left Upper Lung Lobe, Via Natural or Artificial Opening Endoscopic, Diagnostic (ICD-10-PCS; 2017-08-25)
PROC: 02HV33Z Insertion of Infusion Device into Superior Vena Cava, Percutaneous Approach (ICD-10-PCS; 2017-08-25)
PROC: 0BC38ZZ Extirpation of Matter from Right Main Bronchus, Via Natural or Artificial Opening Endoscopic (ICD-10-PCS; 2017-08-28)
PROC: 0BC38ZZ Extirpation of Matter from Right Main Bronchus, Via Natural or Artificial Opening Endoscopic (ICD-10-PCS; 2017-09-01)
PROC: 0BC48ZZ Extirpation of Matter from Right Upper Lobe Bronchus, Via Natural or Artificial Opening Endoscopic (ICD-10-PCS; 2017-09-01)
PROC: 0BC78ZZ Extirpation of Matter from Left Main Bronchus, Via Natural or Artificial Opening Endoscopic (ICD-10-PCS; 2017-09-04)
PROC: 0BC38ZZ Extirpation of Matter from Right Main Bronchus, Via Natural or Artificial Opening Endoscopic (ICD-10-PCS; 2017-09-04)
PROC: 0BC38ZZ Extirpation of Matter from Right Main Bronchus, Via Natural or Artificial Opening Endoscopic (ICD-10-PCS; 2017-09-06)
PROC: 0BC48ZZ Extirpation of Matter from Right Upper Lobe Bronchus, Via Natural or Artificial Opening Endoscopic (ICD-10-PCS; 2017-09-06)
PROC: 5A1945Z Respiratory Ventilation, 24-96 Consecutive Hours (ICD-10-PCS; 2017-09-08)
PROC: 0BC38ZZ Extirpation of Matter from Right Main Bronchus, Via Natural or Artificial Opening Endoscopic (ICD-10-PCS; 2017-09-08)
PROC: 0BC48ZZ Extirpation of Matter from Right Upper Lobe Bronchus, Via Natural or Artificial Opening Endoscopic (ICD-10-PCS; 2017-09-08)
PROC: 0BH18EZ Insertion of Endotracheal Airway into Trachea, Via Natural or Artificial Opening Endoscopic (ICD-10-PCS; 2017-09-08)
PROC: 0BJ08ZZ Inspection of Tracheobronchial Tree, Via Natural or Artificial Opening Endoscopic (ICD-10-PCS; 2017-09-08)
PROC: 4A133J1 Monitoring of Arterial Pulse, Peripheral, Percutaneous Approach (ICD-10-PCS; 2017-09-09)
PROC: 03HY32Z Insertion of Monitoring Device into Upper Artery, Percutaneous Approach (ICD-10-PCS; 2017-09-09)
PROC: 4A133B1 Monitoring of Arterial Pressure, Peripheral, Percutaneous Approach (ICD-10-PCS; 2017-09-09)
PROC: 06HM33Z Insertion of Infusion Device into Right Femoral Vein, Percutaneous Approach (ICD-10-PCS; 2017-09-13)
PROC: 5A1D70Z Performance of Urinary Filtration, Intermittent, Less than 6 Hours Per Day (ICD-10-PCS; 2017-09-13)
DX: S76.011A Strain of muscle, fascia and tendon of right hip, initial encounter (principal); J96.21 Acute and chronic respiratory failure with hypoxia; N17.0 Acute kidney failure with tubular necrosis; I50.43 Acute on chronic combined systolic (congestive) and diastolic (congestive) heart failure; J15.1 Pneumonia due to Pseudomonas; J84.9 Interstitial pulmonary disease, unspecified; E46 Unspecified protein-calorie malnutrition; I47.2 Ventricular tachycardia; E87.4 Mixed disorder of acid-base balance; N18.3 Chronic kidney disease, stage 3 (moderate); I13.0 Hypertensive heart and chronic kidney disease with heart failure and stage 1 through stage 4 chronic kidney disease, or unspecified chronic kidney disease; I47.1 Supraventricular tachycardia; I48.1 Persistent atrial fibrillation; E87.1 Hypo-osmolality and hyponatremia; J44.0 Chronic obstructive pulmonary disease with (acute) lower respiratory infection; J98.11 Atelectasis; K50.911 Crohn's disease, unspecified, with rectal bleeding; T17.590A Other foreign object in bronchus causing asphyxiation, initial encounter; T17.890A Other foreign object in other parts of respiratory tract causing asphyxiation, initial encounter; S22.39XA Fracture of one rib, unspecified side, initial encounter for closed fracture; E11.22 Type 2 diabetes mellitus with diabetic chronic kidney disease; I48.2 Chronic atrial fibrillation; I27.21 Secondary pulmonary arterial hypertension; E83.42 Hypomagnesemia; E83.39 Other disorders of phosphorus metabolism; B96.5 Pseudomonas (aeruginosa) (mallei) (pseudomallei) as the cause of diseases classified elsewhere; D63.1 Anemia in chronic kidney disease; E61.1 Iron deficiency; E66.9 Obesity, unspecified; E78.5 Hyperlipidemia, unspecified; E83.51 Hypocalcemia; E87.5 Hyperkalemia; F40.240 Claustrophobia; H81.10 Benign paroxysmal vertigo, unspecified ear; H91.90 Unspecified hearing loss, unspecified ear; K21.9 Gastro-esophageal reflux disease without esophagitis; L73.2 Hidradenitis suppurativa; M10.9 Gout, unspecified; T38.0X5A Adverse effect of glucocorticoids and synthetic analogues, initial encounter; T50.2X5A Adverse effect of carbonic-anhydrase inhibitors, benzothiadiazides and other diuretics, initial encounter; W18.2XXA Fall in (into) shower or empty bathtub, initial encounter; X50.9XXA Other and unspecified overexertion or strenuous movements or postures, initial encounter; Y92.009 Unspecified place in unspecified non-institutional (private) residence as the place of occurrence of the external cause; Y93.E1 Activity, personal bathing and showering; Z79.1 Long term (current) use of non-steroidal anti-inflammatories (NSAID); Z79.52 Long term (current) use of systemic steroids; Z79.84 Long term (current) use of oral hypoglycemic drugs; Z79.899 Other long term (current) drug therapy; Z83.3 Family history of diabetes mellitus; Z85.118 Personal history of other malignant neoplasm of bronchus and lung; Z86.73 Personal history of transient ischemic attack (TIA), and cerebral infarction without residual deficits; Z87.01 Personal history of pneumonia (recurrent); Z87.11 Personal history of peptic ulcer disease; Z87.891 Personal history of nicotine dependence; Z91.81 History of falling; Z92.21 Personal history of antineoplastic chemotherapy; Z98.84 Bariatric surgery status; Z90.2 Acquired absence of lung [part of]
CPT/HCPCS: 31624; 31645; 36415; 36569; 36600; 71010; 71020; 73502; 74230; 76937; 77001; 78306; 80048; 80053; 80202; 81001; 82306; 82330; 82533; 82728; 82805; 83036; 83540; 83550; 83605; 83735; 83970; 84100; 84132; 85025; 85027; 87045; 87046; 87070; 87086; 87102; 87116; 87205; 87206; 87252; 87496; 87498; 87502; 87529; 87798; 88108; 88305; 89050; 90935; 94002; 94003; 94640; 94660; 94667; 94668; 94760; 96372; 96374; 99285